=== PATIENT | male | born 1970 | race Caucasian/White ===

== ENCOUNTER 2016-12-07 03:08 | Emergency (ER) | payer MEDICARE, MEDICAID ==
[~2016-12-07] VITALS: Ht 170.2 cm; Wt 90.9 kg
[~2016-12-07 03:08] MED LIST: ACET325T49; ATR20T PO; BENZ0.5T3; BNZT1T PO; BSP5T PO; CLON1TAB69 PO; CLON2TAB16; CLON2TAB3 PO; CLOZ150T PO; CLOZAPINE; DCS100C PO; DVL500TEC PO; FOLI0.4T2 PO; HALO5TAB17 PO; LEVE500T6 PO; LNS30CCR PO; LORA10TA7 PO; MGCT300B; MTP25TSR PO; OMEG1CAP72 PO; OMEP20TA2 PO; OMG1KC PO; OXYB5TAB9 PO; PEG250PW; POLY119P4 PO; SULF1TAB38 PO; TRAZ150T42 PO; [UNRECOGNIZED DRUG - OTHER]; [UNRECOGNIZED DRUG - OTHER]
[2016-12-07] MEDS ORDERED: NS IV 1000 ML 1,000 ML IV ONE (03:26)
[2016-12-07 03:36] LABS: BILIRUBIN,URINE NEGATIVE (NEGATIVE); KETONES,URINE NEGATIVE (NEGATIVE); LEUKOCYTE ESTERASE ,URINE 1+ (NEGATIVE); NITRITE,URINE NEGATIVE (NEGATIVE); PH,URINE 7 (5-9); PROTEIN,URINE NEGATIVE (NEGATIVE); UROBILINOGEN,URINE 8 MG/DL (NORMAL)
[2016-12-07 03:46] LABS: HYALINE CASTS, URINE 0-2 /LPF; SQUAMOUS EPITHELIAL CELL,UR RARE /HPF; WBC,URINE RARE /HPF
[2016-12-07 04:05] LABS: BASOPHILS % (AUTO) 0 % (0-10); EOSINOPHILS # (AUTO) 0.1 10^3/uL (0.0-0.3); EOSINOPHILS % (AUTO) 1 % (0-10); LYMPHOCYTES # (AUTO) 2.4 X 10^3 (1.0-4.0); LYMPHOCYTES % (AUTO) 19 % (12-44); MEAN CORPUSCULAR HEMOGLOBIN 27 PG (25-34); MEAN CORPUSCULAR HGB CONC 33 G/DL (32-36); MEAN CORPUSCULAR VOLUME 81 FL (80-99); MEAN PLATELET VOLUME 9.7 FL (7.4-10.4); MONOCYTES # (AUTO) 1.3 X 10^3 (0.0-1.0); MONOCYTES % (AUTO) 10 % (0-12); NEUTROPHILS # (AUTO) 8.7 X 10^3 (1.8-7.8); NEUTROPHILS % (AUTO) 70 % (42-75); PLATELET COUNT 215 10^3/uL (130-400); RED BLOOD COUNT 5.38 10^6/uL (4.35-5.85); RED CELL DISTRIBUTION WIDTH 15.3 % (10.0-14.5); WHITE BLOOD COUNT 12.5 10^3/uL (4.3-11.0)
--- NOTE | 2016-12-07 04:15 | ED Fall/Injury ---
General Chief Complaint: Trauma-Non Activation Stated Complaint: CONFUSION Nursing Triage Note: BROUGHT TO ED BY ARELY RAGSDALE, PT PICKED UP FROM PD STATION AFTER MOTORIST FOUND PT WALKING ON [address] OUT BY AIRPORT ON [address]. PT IS NOT A HISTORIAN, PT HAS MR. Source: patient Exam Limitations: no limitations History of Present Illness Time seen by provider: 03:20 Initial Comments This 46-year-old male client of [facility] presents to the emergency room via EMS after being found walking down the street near the [facility]. He was wearing pajamas and one sock. He was only wearing a T-shirt with pajama pants on this cool night he is noted to have a cough and abrasions on his knees. He does not give any details about how this occurred. He also states his head hurts but is not clear about any injury to the head. Patient is rather low functioning with MR at baseline and is well known to this provider from outside the ER. Patient has a coarse cough. Patient could not accurately report his last name to police or EMS. His identity was unknown until identified by this provider. Location Injury Occurred: UNWITNESSED, UNKNOWN, PT HAS MR Allergies and Home Medications Allergies Coded Allergies: fluoxetine (Verified Allergy, Unknown, 10/08/05) Home Medications Atorvastatin 20 Mg Tablet, 1 EACH PO HS, Ref 0 (Reported) Clonazepam 2 Mg Tablet, 2 MG PO HS, Ref 0 (Reported) Clozapine 150 Mg Tab.rapdis, 300 MG PO TID, (Reported) Divalproex Sodium 500 Mg Tablet.dr, 4 TAB PO DAILY, Ref 0 (Reported) Docusate Sodium 100 Mg Cap, 100 MG PO BID, Ref 0 (Reported) Folic Acid 0.4 Mg Tablet, 0.5 MG PO DAILY, Ref 0 (Reported) Haloperidol 5 Mg Tab, 1 EACH PO BID, Ref 0 (Reported) Levetiracetam 500 Mg Tablet, 1 EACH PO BID, (Reported) Loratadine 10 Mg Tablet, 10 MG PO DAILY, (Reported) Metoprolol Succinate 25 Mg Tab.sr.24h, 1 EACH PO DAILY, Ref 0 (Reported) [place]-3/Dha/Epa/Fish Oil 1 Each Capsule, 1 EACH PO BID AC, (Reported) Omeprazole 20 Mg Tablet.dr, 40 MG PO DAILY, (Reported) Oxybutynin Chloride 5 Mg Tablet, 1 EACH PO BID, (Reported) Polyethylene Glycol 3350 255 Gm Powder, 17 GM PO DAILY, (Reported) Trazodone Hcl 150 Mg Tablet, 150 MG PO HS, Ref 0 (Reported) Constitutional: no symptoms reported Eyes: No Symptoms Reported Ears, Nose, Mouth, Throat: no symptoms reported Respiratory: see HPI Cardiovascular: no symptoms reported Gastrointestinal: no symptoms reported Genitourinary: no symptoms reported Musculoskeletal: no symptoms reported Skin: see HPI Psychiatric/Neurological: See HPI Past Adabhat-Uutyol-Mxzzin Hx Patient Social History Alcohol Use: Denies Use Recreational Drug Use: No Smoking Status: Unknown if Ever Smoked 2nd Hand Smoke Exposure: No Recent Foreign Travel: No Contact w/Someone Who Travel: No Recent Infectious Disease Expo: No Recent Hopitalizations: No Immunizations Up To Date Tetanus Booster (TDap): More than 5yrs Date of Influenza Vaccine: Dec 06, 2012 Seasonal Allergies Seasonal Allergies: No Surgeries History of Surgeries: No (UNKNOWN) Respiratory History of Respiratory Disorde: No (UNKNOWN) Cardiovascular History of Cardiac Disorders: Yes Cardiac Disorders: High Cholesterol Neurological History of Neurological Disord: Yes ( PT IS MR AND HAS HISTORY OF SEIZURES) Neurological Disorders: Developmental Disorder, Seizure Disorder Genitourinary History of Genitourinary Disor: No (UNKNOWN) Gastrointestinal History of Gastrointestinal Di: Yes Gastrointestinal Disorders: Chronic Constipation Musculoskeletal History of Musculoskeletal Dis: No (UNKNOWN) Endocrine History of Endocrine Disorders: No (UNKNOWN - PT IS MR) HEENT History of HEENT Disorders: No (UNKNOWN) Cancer History of Cancer: No (UNKNOWN) Psychosocial History of Psychiatric Problem: Yes (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) Behavioral Health Disorders: Schizophrenia Integumentary History of Skin or Integumenta: No (UNKNOWN) Blood Transfusions History of Blood Disorders: No (UNKNOWN) Physical Exam Vital Signs Vital Sign - Last 12Hours 12/07/16 03:08 Temp 97.3 Pulse 117 Resp 20 B/P (MAP) 142/96 Pulse Ox 91 O2 Delivery Room Air Capillary Refill : Less Than 3 Seconds General Appearance: WD/WN, no apparent distress HEENT: PERRL/EOMI, normal ENT inspection, other (minor red marking on the skin of the right forehead) Neck: non-tender, normal inspection Cardiovascular: regular rate, rhythm, no edema, no murmur Respiratory: lungs clear, normal breath sounds, no respiratory distress, no accessory muscle use Gastrointestinal: normal bowel sounds, non tender, soft Extremities: no pedal edema, other (abrasions on the bilateral knees) Neurologic/Psychiatric: pot annealer II-XII nml as tested, no motor/sensory deficits, alert, normal mood/affect, other (near baseline) Skin: normal color, warm/dry Progress/Results/Core Measures Results/Orders Lab Results Laboratory Tests Test 12/07/16 03:22 12/07/16 03:55 Range/Units Urine Color YELLOW Urine Clarity SLIGHTLY CLOUDY Urine pH 7 5-9 Urine Specific [place] 1.010 L 1.016-1.022 Urine Protein NEGATIVE NEGATIVE Urine Glucose (UA) NEGATIVE NEGATIVE Urine Ketones NEGATIVE NEGATIVE Urine Nitrite NEGATIVE NEGATIVE Urine Bilirubin NEGATIVE NEGATIVE Urine Urobilinogen 8 H NORMAL MG/DL Urine Leukocyte Esterase 1+ H NEGATIVE Urine RBC (Auto) NEGATIVE NEGATIVE Urine RBC NONE /HPF Urine WBC RARE /HPF Urine Squamous Epithelial Cells RARE /HPF Urine Crystals PRESENT H /LPF Urine Amorphous Sediment MOD STEPHEN PHOSPHATE H /LPF Urine Bacteria TRACE /HPF Urine Casts PRESENT /LPF Urine Hyaline Casts 0-2 H /LPF Urine Mucus SMALL H /LPF Urine Culture Indicated NO White Blood Count 12.5 H 4.3-11.0 10^3/uL Red Blood Count 5.38 4.35-5.85 10^6/uL Hemoglobin 14.3 13.3-17.7 G/DL Hematocrit 44 40-54 % Mean Corpuscular Volume 81 80-99 FL Mean Corpuscular Hemoglobin 27 25-34 PG Mean Corpuscular Hemoglobin Concent 33 32-36 G/DL Red Cell Distribution Width 15.3 H 10.0-14.5 % Platelet Count 215 130-400 10^3/uL Mean Platelet Volume 9.7 7.4-10.4 FL Neutrophils (%) (Auto) 70 42-75 % Lymphocytes (%) (Auto) 19 12-44 % Monocytes (%) (Auto) 10 0-12 % Eosinophils (%) (Auto) 1 0-10 % Basophils (%) (Auto) 0 0-10 % Neutrophils # (Auto) 8.7 H 1.8-7.8 X 10^3 Lymphocytes # (Auto) 2.4 1.0-4.0 X 10^3 Monocytes # (Auto) 1.3 H 0.0-1.0 X 10^3 Eosinophils # (Auto) 0.1 0.0-0.3 10^3/uL Basophils # (Auto) 0.0 0.0-0.1 10^3/uL Sodium Level 144 135-145 MMOL/L Potassium Level 4.0 3.6-5.0 MMOL/L Chloride Level 104 98-107 MMOL/L Carbon Dioxide Level 29 21-32 MMOL/L Anion Gap 11 5-14 MMOL/L Blood Urea Nitrogen 12 7-18 MG/DL Creatinine 0.80 0.60-1.30 MG/DL Estimat Glomerular Filtration Rate > 60 BUN/Creatinine Ratio 15 Glucose Level 103 70-105 MG/DL Calcium Level 9.6 8.5-10.1 MG/DL Total Bilirubin 0.3 0.1-1.0 MG/DL Aspartate Amino Transf (AST/SGOT) 15 5-34 U/L Alanine Aminotransferase (ALT/SGPT) 12 0-55 U/L Alkaline Phosphatase 62 40-136 U/L Total Protein 7.1 6.4-8.2 GM/DL Albumin 4.1 3.2-4.5 GM/DL My Orders Orders - SHAWN GAITAN MD Cbc With Automated Diff (12/07/16 03:26) Comprehensive Metabolic Panel (12/07/16 03:26) Ua Culture If Indicated (12/07/16 03:26) Chest Pa/Lat (2 View) (12/07/16 03:26) Ct Head/Cervical Spine Wo (12/07/16 03:26) Saline Lock/Iv-Start (12/07/16 03:26) Ns Iv 1000 Ml (Sodium Chloride 0.9%) (12/07/16 03:26) Medications Given in ED Current Medications Medications Dose Ordered Sig/Ariana Route Start Time Stop Time Status Last Admin Dose Admin Sodium Chloride 1,000 ml @ 0 mls/hr Q0M ONCE IV 12/07/16 03:26 12/07/16 03:28 DC 12/07/16 04:01 999 MLS/HR Vital Signs/I&O Vital Sign - Last 12Hours 12/07/16 03:08 Temp 97.3 Pulse 117 Resp 20 B/P (MAP) 142/96 Pulse Ox 91 O2 Delivery Room Air Blood Pressure Mean: 111 Progress Note : Progress Note The nature of patient's injuries was uncertain and his expected fall was unwitnessed. Since he complained of headache, CT of the head and neck was performed. Labs were also performed. Chest x-ray was obtained because of cough. There were no significant abnormalities identified in his workup. His care provider was contacted and came to pick him up. She reports he has recently moved residences due to his prior providers health problems. For this reason he does not have his usual alarms and security devices to prevent elopement. She is in the process of obtaining those security devices. Diagnostic Imaging Diagonstic Imaging: Xray Plain Films/CT/US/NM/MRI: chest Comments Chest x-ray viewed by me and compared with prior. No acute abnormalities appreciated. Diagonstic Imaging: CT Plain Films/CT/US/NM/MRI: c-spine, head Comments CT head and C-spine viewed by me and [facility] report reviewed. No acute injuries were identified. Departure Impression Impression: Primary Impression: History of elopement from health care facility Additional Impressions: Headache Qualified Codes: R51 - Headache Abrasion of both knees Disposition: 01 HOME, SELF-CARE Condition: Improved Departure-Patient Inst. Decision time for Depature: 04:45 Referrals: MERT SINGH DO (PCP/Family) Primary Care Physician Add. Discharge Instructions: Return to care with any problems or concerns. All discharge instructions reviewed with patient and/or family. Voiced understanding. SHAWN GAITAN MD Dec 07, 2016 04:15
[2016-12-07 04:25] LABS: ALANINE AMINOTRANSFERASE 12 U/L (0-55); ALBUMIN 4.1 GM/DL (3.2-4.5); ANION GAP 11 MMOL/L (5-14); ASPARTATE AMINO TRANSFERASE 15 U/L (5-34); BILIRUBIN,TOTAL 0.3 MG/DL (0.1-1.0); BLOOD UREA NITROGEN 12 MG/DL (7-18); BUN/CREATININE RATIO 15; CALCIUM 9.6 MG/DL (8.5-10.1); CARBON DIOXIDE 29 MMOL/L (21-32); CHLORIDE 104 MMOL/L (98-107); GFR ESTIMATED > 60; GLUCOSE 103 MG/DL (70-105); SODIUM 144 MMOL/L (135-145); TOTAL PROTEIN 7.1 GM/DL (6.4-8.2)
[2016-12-07 04:51] VITALS: BP 138/90
--- NOTE | 2016-12-07 07:09 | Diagnostic Imaging Report ---
Clinical indication: Patient complains of headache and mentally handicap. Exam: Chest x-ray PA and lateral views. Comparisons: Chest x-ray dated 10/31/2015. Findings: Lungs/pleura: Mild bibasilar atelectasis is seen. Otherwise, lungs are clear. There is no pneumothorax. There is no pleural effusion. Mediastinum: Unremarkable. Pulmonary vasculature: Unremarkable. Heart: Unremarkable. Bones/extrathoracic soft tissue: There are small degenerative spurs involving the thoracic spine. Impression: Likely mild bibasilar atelectasis. Otherwise, there is no radiographic evidence of acute cardiopulmonary process. Dictated by: Dictated on workstation # [id number]
--- NOTE | 2016-12-07 07:31 | Diagnostic Imaging Report ---
Clinical indication: Patient is running around roadway in [facility] and picked up by a passing motorist and taken to the police department. Patient is mentally handicapped. Patient complains of headaches.. Exam: Head CT without IV contrast. Axial CT scan of the cervical spine with sagittal and coronal reformations. Comparison: Head CT without contrast dated 10/31/2015. CT scan of the head, face, and cervical spine dated 02/02/2013. Findings: There is streak artifact obscuring some portions of the brain parenchyma. Head CT: There is no evidence of acute cerebral infarct, intracranial hemorrhage, or gross mass effect. There is normal olmos-white matter distinction. Again noted mild brain parenchymal volume loss with the temporal lobes affected the most. There is no significant midline shift or herniation. There is no evidence of hydrocephalus. The basal cisterns are unremarkable. The skull, extracranial soft tissue, and orbits are unremarkable. There is minimal mucosal thickening involving right maxillary sinus. Cervical spine: There is no acute cervical spine fracture or dislocation. There is progression of hypertrophic spurring or degenerative osteophyte seen throughout the cervical spine and visualized upper thoracic spine. There is no significant bony central spinal canal or neural foramen narrowing. There is no significant neck soft tissue abnormality. There is hypertrophic anterior spurring at the C3-C4 level which encroaches upon the hypopharyngeal region. There is mild atelectasis involving visualized upper lung coronado. The remainder of this exam shows no significant interval change compared to the prior study of comparison. Impression: 1: Stable CT scan of the brain with no evidence of acute intracranial process. 2: There is interval progression of cervical spine degenerative disease with no acute fracture or dislocation. I agree with [facility] report. Dictated by: Dictated on workstation # [id number]
== END 2016-12-07 04:51 | disposition home or self-care (01) ==
LOC: EDUNIT# 03:19 → ER 03:20
DX: S80.211A Abrasion, right knee, initial encounter (principal); S80.212A Abrasion, left knee, initial encounter; R51 Headache; F20.9 Schizophrenia, unspecified; K59.09 Other constipation; G40.909 Epilepsy, unspecified, not intractable, without status epilepticus; E78.00 Pure hypercholesterolemia, unspecified; X58.XXXA Exposure to other specified factors, initial encounter
CPT/HCPCS: 36415; 70450; 71020; 72125; 80053; 81000; 85025; 96360

== ENCOUNTER 2017-03-05 20:35 | Emergency (ER) | payer MEDICARE, MEDICAID ==
[~2017-03-05] VITALS: Ht 170.2 cm; Wt 81.6 kg
--- NOTE | 2017-03-05 21:08 | ED Neurological Problem ---
General Stated Complaint: CONFUSION Source: patient, caregiver Exam Limitations: physical impairment History of Present Illness Time seen by provider: 20:58 Initial Comments Patient presents to ER by private conveyance with his caregiver whom he has lived with for the last 3 months. He is a MR patient who is cared for by [facility]. He has a long-standing history of paranoid schizophrenia, seizure disorder, and more recently started on an increased dose of trazodone because his caregiver from cancer about 3 months ago. His trazodone was increased about 2-3 weeks ago. In the last couple days the caregiver has noted the patient has had a few falls where he promptly pulled himself back up and went on about his business no pain or discomfort. She is gotten last couple days she's also been acting a little strange and today he was not answering appropriately for himself or making much sense at all. He typically can be taken to the bathroom and is wears briefs at nights but he has not been able to care for himself even for his ADLs and the last day or 2. He is eating and drinking okay and ate his dinner tonight. He has not had his evening meds yet. Does not have any heart history. He does smoke cigarettes and has a routine cough although the caregiver feels it may be a little more loose than normal. She's felt that he's been warm but has not checked his temperature. He's had no rash, nausea, vomiting, diarrhea, fatigue. No falls the last 24 hours. Allergies and Home Medications Allergies Coded Allergies: fluoxetine (Verified Allergy, Unknown, 03/05/17) Home Medications Atorvastatin 20 Mg Tablet, 1 EACH PO HS, Ref 0 (Reported) Benztropine Mesylate 1 Mg Tablet, 1 MG PO, (Reported) Clonazepam 2 Mg Tablet, 2 MG PO HS, Ref 0 (Reported) Clozapine 150 Mg Tab.rapdis, 300 MG PO TID, (Reported) Divalproex Sodium 500 Mg Tablet.dr, 4 TAB PO DAILY, Ref 0 (Reported) Docusate Sodium 100 Mg Cap, 100 MG PO BID, Ref 0 (Reported) Folic Acid 0.4 Mg Tablet, 0.5 MG PO DAILY, Ref 0 (Reported) Haloperidol 5 Mg Tab, 1 EACH PO BID, Ref 0 (Reported) Levetiracetam 500 Mg Tablet, 1 EACH PO BID, (Reported) Loratadine 10 Mg Tablet, 10 MG PO DAILY, (Reported) Metoprolol Succinate 25 Mg Tab.sr.24h, 1 EACH PO DAILY, Ref 0 (Reported) [place]-3/Dha/Epa/Fish Oil 1 Each Capsule, 1 EACH PO BID AC, (Reported) Omeprazole 20 Mg Tablet.dr, 40 MG PO DAILY, (Reported) Oxybutynin Chloride 5 Mg Tablet, 1 EACH PO BID, (Reported) Pantoprazole Sodium 40 Mg Tablet.dr, 40 MG PO DAILY, (Reported) Polyethylene Glycol 3350 255 Gm Powder, 17 GM PO DAILY, (Reported) Quetiapine Fumarate 100 Mg Tablet, 100 MG PO, (Reported) Trazodone Hcl 150 Mg Tablet, 150 MG PO HS, Ref 0 (Reported) Constitutional: see HPI (review of systems will be limited given his current cognitive level.), No chills, No diaphoresis, No fever Eyes: Denies Pain, Denies Photophobia, Glasses Ears, Nose, Mouth, Throat: denies ear pain, denies ear discharge Respiratory: cough, phlegm, No short of breath Cardiovascular: No chest pain, No palpitations Gastrointestinal: No abdominal pain, No constipation, No diarrhea, No nausea Genitourinary: No discharge, No dysuria Musculoskeletal: No back pain, No joint pain Skin: No pruritus, No rash Psychiatric/Neurological: Cognitive Dysfunction, Denies Headache Past Lrwhcat-Okhqls-Qabahw Hx Patient Social History Alcohol Use: Denies Use Recreational Drug Use: No Smoking Status: Current Everyday Smoker Type Used: Cigarettes 2nd Hand Smoke Exposure: No Recent Foreign Travel: No Contact w/Someone Who Travel: No Recent Hopitalizations: No Immunizations Up To Date Tetanus Booster (TDap): More than 5yrs Date of Influenza Vaccine: Dec 06, 2012 Seasonal Allergies Seasonal Allergies: No Surgeries History of Surgeries: No (UNKNOWN) Respiratory History of Respiratory Disorde: No (UNKNOWN) Cardiovascular History of Cardiac Disorders: Yes Cardiac Disorders: High Cholesterol Neurological History of Neurological Disord: Yes ( PT IS MR AND HAS HISTORY OF SEIZURES) Neurological Disorders: Developmental Disorder, Seizure Disorder Genitourinary History of Genitourinary Disor: No (UNKNOWN) Gastrointestinal History of Gastrointestinal Di: Yes Gastrointestinal Disorders: Chronic Constipation Musculoskeletal History of Musculoskeletal Dis: No (UNKNOWN) Endocrine History of Endocrine Disorders: No (UNKNOWN - PT IS MR) HEENT History of HEENT Disorders: No (UNKNOWN) Cancer History of Cancer: No (UNKNOWN) Psychosocial History of Psychiatric Problem: Yes (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) Behavioral Health Disorders: Schizophrenia Integumentary History of Skin or Integumenta: No (UNKNOWN) Blood Transfusions History of Blood Disorders: No (UNKNOWN) Physical Exam Vital Signs Vital Sign - Last 12Hours 03/05/17 21:00 Temp 100.1 Pulse 119 Resp 21 B/P (MAP) 147/97 (114) Pulse Ox 94 O2 Delivery Room Air Capillary Refill : General Appearance: WD/WN, no apparent distress HEENT: PERRL/EOMI, normal ENT inspection, TMs normal, pharynx normal Neck: non-tender, normal inspection Respiratory: chest non-tender, no respiratory distress, wheezing (few) Cardiovascular: regular rate, rhythm, no edema, tachycardia (110-120) Peripheral Pulses: 2+ Dorsalis Pedis (R), 2+ Left Dors-Pedis (L), 2+ Radial Pulses (R), 2+ Radial Pulses (L) Gastrointestinal: normal bowel sounds, non tender, soft, no organomegaly Extremities: normal range of motion, normal capillary refill Neurologic/Psychiatric: alert, oriented x 3 Crainal Nerves: normal hearing, normal speech, PERRL, other (caregiver says his confused answers is new in the last day or 2.) Coordination/Gait: normal gait Motor/Sensory: no motor deficit, no sensory deficit Skin: normal color, warm/dry Progress/Results/Core Measures Results/Orders Lab Results Laboratory Tests Test 03/05/17 21:07 03/05/17 23:21 Range/Units White Blood Count 12.8 H 4.3-11.0 10^3/uL Red Blood Count 5.34 4.35-5.85 10^6/uL Hemoglobin 13.8 13.3-17.7 G/DL Hematocrit 42 40-54 % Mean Corpuscular Volume 79 L 80-99 FL Mean Corpuscular Hemoglobin 26 25-34 PG Mean Corpuscular Hemoglobin Concent 33 32-36 G/DL Red Cell Distribution Width 16.0 H 10.0-14.5 % Platelet Count 213 130-400 10^3/uL Mean Platelet Volume 9.9 7.4-10.4 FL Neutrophils (%) (Auto) 70 42-75 % Lymphocytes (%) (Auto) 18 12-44 % Monocytes (%) (Auto) 12 0-12 % Eosinophils (%) (Auto) 0 0-10 % Basophils (%) (Auto) 0 0-10 % Neutrophils # (Auto) 8.9 H 1.8-7.8 X 10^3 Lymphocytes # (Auto) 2.4 1.0-4.0 X 10^3 Monocytes # (Auto) 1.5 H 0.0-1.0 X 10^3 Eosinophils # (Auto) 0.0 0.0-0.3 10^3/uL Basophils # (Auto) 0.0 0.0-0.1 10^3/uL Sodium Level 145 135-145 MMOL/L Potassium Level 3.8 3.6-5.0 MMOL/L Chloride Level 106 98-107 MMOL/L Carbon Dioxide Level 24 21-32 MMOL/L Anion Gap 15 H 5-14 MMOL/L Blood Urea Nitrogen 15 7-18 MG/DL Creatinine 0.88 0.60-1.30 MG/DL Estimat Glomerular Filtration Rate > 60 BUN/Creatinine Ratio 17 Glucose Level 150 H 70-105 MG/DL Calcium Level 9.4 8.5-10.1 MG/DL Total Bilirubin 0.5 0.1-1.0 MG/DL Aspartate Amino Transf (AST/SGOT) 22 5-34 U/L Alanine Aminotransferase (ALT/SGPT) 16 0-55 U/L Alkaline Phosphatase 65 40-136 U/L Total Protein 7.1 6.4-8.2 GM/DL Albumin 3.9 3.2-4.5 GM/DL Group A Streptococcus Screen NEGATIVE NEGATIVE Urine Color BROWN H Urine Clarity CLEAR Urine pH 7 5-9 Urine Specific [place] 1.010 L 1.016-1.022 Urine Protein 2+ H NEGATIVE Urine Glucose (UA) NEGATIVE NEGATIVE Urine Ketones 1+ H NEGATIVE Urine Nitrite POSITIVE H NEGATIVE Urine Bilirubin 2+ H NEGATIVE Urine Urobilinogen 8 H NORMAL MG/DL Urine Leukocyte Esterase 1+ H NEGATIVE Urine RBC (Auto) 1+ H NEGATIVE Urine RBC 0-2 /HPF Urine WBC 0-2 /HPF Urine Squamous Epithelial Cells 0-2 /HPF Urine Crystals NONE /LPF Urine Bacteria NEGATIVE /HPF Urine Casts NONE /LPF Urine Mucus LARGE H /LPF Urine Culture Indicated NO Micro Results Microbiology 03/05/17 Influenza Types A,B Antigen (MEY) - Final, Complete My Orders Orders - VICKI GARCES Influenza A And B Antigens (03/05/17 21:04) Rapid Strep A Screen (03/05/17 21:04) Saline Lock/Iv-Start (03/05/17 21:04) Lactated Ringers (Lr 1000 Ml Iv Solution (03/05/17 21:04) Medications Given in ED Current Medications Medications Dose Ordered Sig/Ariana Route Start Time Stop Time Status Last Admin Dose Admin Lactated Ringer's 1,000 ml @ 0 mls/hr Q0M ONCE IV 03/05/17 21:04 03/05/17 21:05 DC 03/05/17 22:29 1,000 MLS/HR Vital Signs/I&O Vital Sign - Last 12Hours 03/05/17 21:00 Temp 100.1 Pulse 119 Resp 21 B/P (MAP) 147/97 (114) Pulse Ox 94 O2 Delivery Room Air Intake and Output 03/06/17 00:00 Intake Total 1000 ml Balance 1000 ml Progress Note : Time: 21:53 Progress Note Confusion may be caused by infection. He has tachycardia but no fever and a loose cough so certainly pneumonia is possible. Strep and pneumonia are negative. Diagnostic Imaging Diagonstic Imaging: Xray Plain Films/CT/US/NM/MRI: chest (2v) Comments NAME: ANA CHILEL [facility] REC#: [id number] PT STATUS: REG ER : 1970 PHYSICIAN: ALYCIA KHAN [employer]CUIT [employer] ADMIT DATE: 03/05/17/ER Draft Date of Exam:03/05/17 CHEST PA/LAT (2 VIEW) INDICATION: Fall, weakness. COMPARISON: 12/07/2016. EXAMINATION: Frontal and lateral views of the chest were obtained. FINDINGS: Cardiac enlargement with low lung volumes. There is central vascular congestion. There is no pneumothorax, effusion or focal infiltrate. Osseous structures are normal. IMPRESSION: 1. Cardiac enlargement with central vascular congestion and low lung volumes. 2. No focal infiltrate. Dictated on workstation # [id number] Dict: 03/05/[id number] Trans: 03/05/172151 [facility] [id number] Interpreted by: SUNIL VANEGAS Electronically signed by: Reviewed: Reviewed by Me Departure Impression Impression: Primary Impression: Confusion Additional Impressions: Fall Qualified Codes: W19.XXXA - Unspecified fall, initial encounter UTI (urinary tract infection) Qualified Codes: N30.00 - Acute cystitis without hematuria Disposition: HOME, SELF-CARE Condition: Stable Departure-Patient Inst. Decision time for Depature: 00:23 Referrals: MERT SINGH DO (PCP/Family) Primary Care Physician Patient Instructions: Urinary Tract Infection, Adult (DC) Add. Discharge Instructions: Drink lots of fluids. Take one tablet of Bactrim twice daily with some food or fluids. You may also picking table worker some probiotics and take one capsule twice a day with help prevent the GI symptoms accompanying antibiotic use. Complete the antibiotics and if he's not seeing some improvement by day 3 or 4 follow-up with the primary care physician. Scripts Sulfamethoxazole/Trimethoprim (Bactrim Ds Tablet) 1 Each Tablet 1 EACH PO BID for 7 Days, #14 TAB 0 Refills Prov: VICKI GARCES 03/06/17 Copy Copies To 1: MERT SINGH TITUS J Mar 05, 2017 21:08
[2017-03-05 21:22] LABS: BASOPHILS % (AUTO) 0 % (0-10); EOSINOPHILS % (AUTO) 0 % (0-10); LYMPHOCYTES # (AUTO) 2.4 X 10^3 (1.0-4.0); LYMPHOCYTES % (AUTO) 18 % (12-44); MEAN CORPUSCULAR HEMOGLOBIN 26 PG (25-34); MEAN CORPUSCULAR HGB CONC 33 G/DL (32-36); MEAN CORPUSCULAR VOLUME 79 FL (80-99); MEAN PLATELET VOLUME 9.9 FL (7.4-10.4); MONOCYTES # (AUTO) 1.5 X 10^3 (0.0-1.0); MONOCYTES % (AUTO) 12 % (0-12); NEUTROPHILS # (AUTO) 8.9 X 10^3 (1.8-7.8); NEUTROPHILS % (AUTO) 70 % (42-75); PLATELET COUNT 213 10^3/uL (130-400); RED BLOOD COUNT 5.34 10^6/uL (4.35-5.85); WHITE BLOOD COUNT 12.8 10^3/uL (4.3-11.0)
[2017-03-05] MEDS ORDERED: QUET100T69 PO (21:24)
[2017-03-05] MEDS ORDERED: BENZ1TAB6 PO (21:24)
[2017-03-05] MEDS ORDERED: PANT40TA3 PO (21:24)
--- NOTE | 2017-03-05 21:52 | Diagnostic Imaging Report ---
INDICATION: Fall, weakness. COMPARISON: 12/07/2016. EXAMINATION: Frontal and lateral views of the chest were obtained. FINDINGS: Cardiac enlargement with low lung volumes. There is central vascular congestion. There is no pneumothorax, effusion or focal infiltrate. Osseous structures are normal. IMPRESSION: 1. Cardiac enlargement with central vascular congestion and low lung volumes. 2. No focal infiltrate. Dictated by: Dictated on workstation # [id number]
[2017-03-05 22:09] LABS: ALANINE AMINOTRANSFERASE 16 U/L (0-55); ALBUMIN 3.9 GM/DL (3.2-4.5); ANION GAP 15 MMOL/L (5-14); ASPARTATE AMINO TRANSFERASE 22 U/L (5-34); BILIRUBIN,TOTAL 0.5 MG/DL (0.1-1.0); BLOOD UREA NITROGEN 15 MG/DL (7-18); BUN/CREATININE RATIO 17; CALCIUM 9.4 MG/DL (8.5-10.1); CARBON DIOXIDE 24 MMOL/L (21-32); CHLORIDE 106 MMOL/L (98-107); CREATININE SERUM 0.88 MG/DL (0.60-1.30); GFR ESTIMATED > 60; GLUCOSE 150 MG/DL (70-105); POTASSIUM 3.8 MMOL/L (3.6-5.0); SODIUM 145 MMOL/L (135-145); TOTAL PROTEIN 7.1 GM/DL (6.4-8.2)
[2017-03-05] MEDS: LACTATED RINGERS 1,000 ML IV ONE (22:29)
[2017-03-05 23:32] LABS: KETONES,URINE 1+ (NEGATIVE); LEUKOCYTE ESTERASE ,URINE 1+ (NEGATIVE); NITRITE,URINE POSITIVE (NEGATIVE); PH,URINE 7 (5-9); PROTEIN,URINE 2+ (NEGATIVE); UROBILINOGEN,URINE 8 MG/DL (NORMAL)
[2017-03-06 00:09] LABS: BILIRUBIN,URINE 2+ (NEGATIVE); SQUAMOUS EPITHELIAL CELL,UR 0-2 /HPF; WBC,URINE 0-2 /HPF
[2017-03-06] MEDS ORDERED: SULF1TAB35 PO (00:24)
[2017-03-06 00:33] VITALS: BP 134/91
== END 2017-03-06 00:33 | disposition home or self-care (01) ==
LOC: EDUNIT# 20:35 → ER 20:36
DX: R41.0 Disorientation, unspecified (principal); N39.0 Urinary tract infection, site not specified; F20.9 Schizophrenia, unspecified; G40.909 Epilepsy, unspecified, not intractable, without status epilepticus; E78.00 Pure hypercholesterolemia, unspecified; F17.210 Nicotine dependence, cigarettes, uncomplicated; Z87.19 Personal history of other diseases of the digestive system; W19.XXXA Unspecified fall, initial encounter
CPT/HCPCS: 36415; 71020; 80053; 81000; 85025; 87430; 87804

== ENCOUNTER → 2017-03-13 | Outpatient (CLI) | payer MEDICARE, MEDICAID ==
[~2017-03-13] MED LIST changes: +BENZ1TAB6 PO; +PANT40TA3 PO; +QUET100T69 PO; +SULF1TAB35 PO
[2017-03-13] MEDS: GADOBUTROL 10 MMOL/10 ML (GADAVIST) VIAL IV ONE (09:17)
--- NOTE | 2017-03-13 09:53 | Diagnostic Imaging Report ---
CLINICAL INDICATION: Patient having altered mental status, falls, and dizziness. EXAM: MRI of the brain performed without and with 9 cc of Gadavist IV contrast. Sequences include axial DWI, ADC map, axial gradient echo, axial T2, axial FLAIR, axial T1, axial T1 post IV contrast, coronal T1 fat-sat post IV contrast, and sagittal T1 post IV contrast. COMPARISON: Head CT without contrast dated 12/07/2016. FINDINGS: There is no evidence of acute cerebral infarct, intracranial hemorrhage, or gross mass effect. There is no abnormal IV contrast enhancement. There is subtle mild confluent high T2 signal in both cerebral hemispheres and periventricular regions likely related to age-related changes. There is normal olmos-white matter distinction. The brain parenchymal volume appears appropriate for patient's age. There is no significant midline shift or herniation. There is note of the communicative basilar arteries and right vertebral artery on the axial T2 sequence. The pituitary gland, sella, and suprasellar regions are unremarkable as visualized. There is no evidence of hydrocephalus. The basal cisterns are unremarkable. The skull, extracranial soft tissue, and orbits are unremarkable. There is minimal mucosal thickening in the ethmoid sinus. There is a small mucus retention cyst or polyp involving the medial wall of the right maxillary sinus. There is minimal fluid in the right mastoid air cells. IMPRESSION: 1: There is no evidence of acute intracranial process. 2: There is diminutive appearance of the basilar artery and intradural right vertebral artery which is not well delineated on this exam. This may represent normal anatomical variation for patient, but vascular abnormality should be excluded. CT angiogram of the head and neck is suggested for further evaluation. 3: Otherwise age-related brain parenchymal changes. 4: Mild paranasal sinus disease and minimal amount of fluid in the right mastoid air cells. Dictated by: Dictated on workstation # [id number]
== END ==
LOC: RAD 08:29
PROVIDERS: ATTEND Family Medicine
DX: J32.9 Chronic sinusitis, unspecified (principal); G31.89 Other specified degenerative diseases of nervous system; R41.82 Altered mental status, unspecified; R29.6 Repeated falls; R42 Dizziness and giddiness
CPT/HCPCS: 70553

== ENCOUNTER 2017-03-25 11:12 | Inpatient (IN) | payer MEDICARE, MEDICAID ==
[~2017-03-25] VITALS: Ht 175.3 cm; Wt 83.5 kg
--- OUTSIDE RECORDS SUMMARY | 2017-03-25 11:18 | XMS REPORT ---
Author Author CLAUS MCDONALD Organization [employer] Address Unknown Phone Unavailable Care Team Providers Care Medical Professionals Name Role Phone CLAUS MCDONALD CP Unavailable Allergies No Known Allergies Problems Problem Type Condition Code Onset Dates Condition Status Problem Intermittent explosive disorder 312.34 Active Problem Hyperlipemia E78.5 Active Problem Paranoid schizophrenia, chronic condition 295.32 Active Problem Encounter for dental examination Z01.20 Active Problem Paranoid schizophrenia, chronic condition F20.0 Active Problem Mild intellectual disabilities F70 Active Problem Stress incontinence, male N39.3 Active Problem High risk medication use Z79.899 Active Problem Seizures R56.9 Active Problem Mildly mentally retarded F70 Active Medications No Known Medications Results No Known Results Summary Purpose eClinicalWorks Submission
--- OUTSIDE RECORDS SUMMARY | 2017-03-25 11:18 | XMS REPORT ---
Author CLAUS Bean [employer] Address Unknown Phone Unavailable Care Team Providers Care Neuropsychology Medical Consultant Name Role Phone CLAUS MCDONALD CP Unavailable Allergies, Adverse Reactions, Alerts Substance Reaction Event Type Prozac Info Not Available Drug Allergy Problems Problem Type Condition Code Onset Dates [...] Active Problem Mildly mentally retarded F70 Active Assessment Mild intellectual disabilities F70 Active Assessment High risk medication use Z79.899 Active Assessment Paranoid schizophrenia, chronic condition F20.0 Active Medications Medication Code System Code Instructions Start Date End Date Status Dosage Loratadine [facility] [address]-28 10 mg 1 TAB orally once a day May 06, 2013 1 tablet by Oral route 1 time per day Protonix [facility] [address]-56 40 mg August 02, 2013 1 tablet by Oral route 1 time per day Keppra [facility] [address]-51 500 mg July 21, 2012 take 1 tablet (500 mg ) by oral route 2 times per day Haloperidol [facility] 97462566360 2 MG 1 Tablet by Oral route 1 time per day Benztropine Mesylate [facility] [address]-63 1 MG Orally 3 times a day; AM, 3PM and HS 1 Tablet Docusate Sodium [facility] [address]-81 100 mg August 02, 2013 take 1 capsule (100 mg) by oral route 2 times per day Clonazepam [facility] [address]-54 2 MG Orally take at HS Nov 01, 2013 1 Tablet Clozapine [facility] [address]-76 100 MG 3 tabs in the AM and HS; Take 2 tabs at 3PM 1 tablet Depakote ER [facility] 15782542635 500 MG Orally 1 time per day 4 Tablet EPA [facility] 75384-[address]906 1000 MG Orally twice a day 1 capsule Lipitor [facility] [address]-29 20 mg September 21, 2012 1 tablet by Oral route 1 time per day Folic Acid [facility] [address]-79 1 mg Apr 25, 2014 0.5 tablet by Oral route 1 time per day Oxybutynin Chloride [facility] [address]-46 5 MG Orally Twice a day October 06, 2012 1 tablet by Oral route 2 times per day MiraLax [facility] [address]-33 17 gram/dose Feb 24, 2013 17 g by Oral route 1 time per day take daily Metoprolol Succinate [facility] 0 25 mg August 02, 2013 1 tablet by Oral route 1 time per day Trazodone HCl [facility] 28543475999 150 MG take 1 Tablet by Oral route 1 time per day [facility] Procedures Procedure Coding System Code Date Office Visit, Est Pt., Level 4 CPT-4 83373 June 28, 2015 [facility] VISIT ESTABLISHED PATIENT CPT-4 G0467 June 28, 2015 Vital Signs Date/Time: June 28, 2015 Cardiac Monitoring Heart Rate 102 bpm Weight 182 lbs Height 68 in BMI 27.67 Index Blood Pressure Diastolic 80 mmHg Blood Pressure Systolic 130 mmHg Results No Known Results Summary Purpose [employer]ClinicalWorks Submission
--- OUTSIDE RECORDS SUMMARY | 2017-03-25 11:18 | XMS REPORT ---
Author Author CLAUS MCDONALD [employer] Address Unknown Phone Unavailable Care Team Providers Care Buffing Wheel Inspector Name Role Phone CLAUS MCDONALD CP Unavailable Allergies No Known Allergies Problems Problem Type Condition Code Onset Dates Condition Status Problem Mildly mentally retarded F70 Active Problem Stress incontinence, male N39.3 Active Problem Seizures R56.9 Active Problem Paranoid schizophrenia, chronic condition 295.32 Active Problem Intermittent explosive disorder 312.34 Active Problem High risk medication use Z79.899 Active Problem Hyperlipemia E78.5 Active Medications Medication Code System Code Instructions Start Date End Date Status Dosage Depakote ER [facility] [address]-37 500 MG Orally 1 time per day Oct 07, 2012 4 Tablet Results No Known Results Summary Purpose eClinicalWorks Submission
--- OUTSIDE RECORDS SUMMARY | 2017-03-25 11:18 | XMS REPORT ---
Author Author CLAUS MCDONALD Organization [facility] Address [address] [place] [address] Care Team Providers Care Pit Operator Name Role Phone CLAUS MCDONALD Unavailable PROBLEMS Type Condition ICD9-CM Code GHU82-LN Code Onset Dates Condition Status SNOMED Code Problem Paranoid schizophrenia, chronic condition 295.32 Active 43735711 Problem High risk medication use Z79.899 Active 778738535 Problem Seizures R56.9 Active 69576510 Problem Intermittent explosive disorder 312.34 Active 12732128 Problem Mild intellectual disabilities F70 Active 55163839 Problem Encounter for dental examination Z01.20 Active 077666551 Problem Hyperlipemia E78.5 Active 18457472 Problem Mildly mentally retarded F70 Active 01608602 Problem Paranoid schizophrenia, chronic condition F20.0 Active 30226131 Problem Stress incontinence, male N39.3 Active 282574383 ALLERGIES Unknown Allergies SOCIAL HISTORY No smoking Hx information available PLAN OF CARE VITAL SIGNS MEDICATIONS Medication Instructions Dosage Frequency Start Date End Date Duration Status Clonazepam 2 MG Orally for anxiety 1/2 tablet at 3pm and 1.5 tablets at HS Oct, 31 days Active RESULTS No Results PROCEDURES No Known procedures IMMUNIZATIONS No Known Immunizations
--- OUTSIDE RECORDS SUMMARY | 2017-03-25 11:18 | XMS REPORT ---
Author CLAUS Bean [employer] Address Unknown Phone Unavailable Care Team Providers Care Cpr Ambulance Driver Name Role Phone CLAUS MCDONALD CP Unavailable Allergies No Known Allergies Problems Problem Type Condition Code Onset Dates Condition Status Assessment Mildly mentally retarded F70 Active Problem Intermittent explosive disorder 312.34 Active Assessment Paranoid schizophrenia, chronic condition F20.0 Active Assessment High risk medication use Z79.899 Active Problem Seizures R56.9 Active Problem Mildly mentally retarded F70 Active Problem Paranoid schizophrenia, chronic condition F20.0 Active Problem Hyperlipemia E78.5 Active Problem Paranoid schizophrenia, chronic condition 295.32 Active Problem Stress incontinence, male N39.3 Active Problem High risk medication use Z79.899 Active Medications Medication Code System Code Instructions Start Date End Date Status Dosage Docusate Sodium [facility] [address]-55 100 mg August 02, 2013 take 1 capsule (100 mg) by oral route 2 times per day Trazodone HCl [facility] [address]-53 150 MG take 1 Tablet by Oral route 1 time per day qHS Keppra [facility] [address]-73 500 mg July 21, 2012 take 1 tablet (500 mg ) by oral route 2 times per day Depakote ER [facility] [address]-38 500 MG Orally 1 time per day Oct 07, 2012 4 Tablet Oxybutynin Chloride [facility] [address]-84 5 MG Orally Twice a day October 06, 2012 1 tablet by Oral route 2 times per day Haloperidol [facility] [address]-09 2 MG 1 Tablet by Oral route 1 time per day Folic Acid [facility] [address]-92 1 mg Apr 25, 2014 0.5 tablet by Oral route 1 time per day Robinul [facility] [address]-63 1 MG Orally Three times a day as needed 1 tablet Protonix [facility] [address]-95 40 mg August 02, 2013 1 tablet by Oral route 1 time per day Metoprolol Succinate [facility] 0 25 mg August 02, 2013 1 tablet by Oral route 1 time per day Lipitor [facility] [address]-84 20 mg September 21, 2012 1 tablet by Oral route 1 time per day Clozapine [facility] [address]-96 100 MG 3 Tablet by Oral route 3 times per day Benztropine Mesylate [facility] [address]-80 1 MG Orally 2 times a day for drooling 1 Tablet EPA [facility] 03657-36963 1000 MG Orally twice a day 1 capsule Loratadine [facility] [address]-41 10 mg 1 TAB orally once a day May 06, 2013 1 tablet by Oral route 1 time per day MiraLax [facility] [address]-97 17 gram/dose Feb 24, 2013 17 g by Oral route 1 time per day take daily Clonazepam [facility] [address]-24 2 MG Orally take at HS Nov 01, 2013 1 Tablet Procedures Procedure Coding System Code Date Office Visit, Est Pt., Level 4 CPT-4 13871 Mar 29, 2015 [facility] VISIT ESTABLISHED PATIENT CPT-4 G0467 Mar 29, 2015 Vital Signs Date/Time: Mar 29, 2015 Cardiac Monitoring Heart Rate 90 bpm Weight 182.4 lbs Height 68 in BMI 27.73 Index Blood Pressure Diastolic 76 mmHg Blood Pressure Systolic 128 mmHg Results No Known Results Summary Purpose eClinicalWorks Submission
--- OUTSIDE RECORDS SUMMARY | 2017-03-25 11:18 | XMS REPORT ---
Author Author CLAUS MCDONALD Organization [employer] Address Unknown Phone Unavailable Care Team Providers Care Carpet Jack Name Role Phone CLAUS MCDONALD CP Unavailable [...]
--- OUTSIDE RECORDS SUMMARY | 2017-03-25 11:18 | XMS REPORT ---
Author Author CLAUS MCDONALD Organization [employer] Address Unknown Phone Unavailable Care Team Providers Care Maintenance Worker Swimming Pool Name Role Phone CLAUS MCDONALD CP Unavailable [...]
--- OUTSIDE RECORDS SUMMARY | 2017-03-25 11:18 | XMS REPORT ---
Author Author JOSSE OWENS Organization [employer] Address Unknown Phone Unavailable Care Team Providers Care Workforce Planning Analyst Name Role Phone JOSSE OEWNS CP Unavailable Allergies No Known Allergies Problems Problem Type Condition ICD-9 Code Onset Dates Condition Status Problem Mild mental retardation 317 Active Problem Encounter for removal of sutures V58.32 Active Problem Paranoid schizophrenia, chronic condition 295.32 Active Problem Routine general medical examination at health care facility V70.0 Active Problem Other convulsions 780.39 Active Problem Periapical abscess without sinus 522.5 Active Problem Intermittent explosive disorder 312.34 Active Medications No Known Medications Vital Signs Date/Time: Nov 22, 2014 BMI 26.77 Index Weight 176.1 lbs Height 68 in Results No Known Results Summary Purpose eClinicalWorks Submission
--- OUTSIDE RECORDS SUMMARY | 2017-03-25 11:18 | XMS REPORT ---
Author Author CLAUS MCDONALD Organization [facility] Address [address] [place] [address] Care Team Providers Care Languages And Literature Instructor Name Role Phone CLAUS MCDONALD Unavailable PROBLEMS Type Condition ICD9-CM Code [id number] Code Onset Dates Condition Status SNOMED Code Problem Paranoid schizophrenia, chronic condition 295.32 Active 00601470 Problem High risk medication use Z79.899 Active 969322506 Problem Seizures R56.9 Active 66938266 Problem Intermittent explosive disorder 312.34 Active 89507374 Problem Mild intellectual disabilities F70 Active 97558096 Problem Encounter for dental examination Z01.20 Active 090031713 Problem Hyperlipemia E78.5 Active 79401803 Problem Mildly mentally retarded F70 Active 68041656 Problem Paranoid schizophrenia, chronic condition F20.0 Active 33724996 Problem Stress incontinence, male N39.3 Active 533630860 ALLERGIES No Information SOCIAL HISTORY Never Assessed PLAN OF CARE VITAL SIGNS MEDICATIONS Medication Instructions Dosage Frequency Start Date End Date Duration Status Haloperidol 2 MG 1 Tablet by Oral route 1 time per day 31 days Active Trazodone HCl 150 MG take 1 Tablet by Oral route 1 time per day qHS 31 days Active RESULTS No Results PROCEDURES No Known procedures IMMUNIZATIONS No Known Immunizations MEDICAL (GENERAL) HISTORY Type Description Date Medical History High Blood Pressure Medical History Fainting/Seizures/Epilepsy Medical History Moderate MR Medical History GERD Medical History Hyperlipidemia Medical History Paranoid Schizophrenia Medical History incontenance Medical History Intermitten Explosive DO Hospitalization History Constipated related 2013
--- OUTSIDE RECORDS SUMMARY | 2017-03-25 11:18 | XMS REPORT ---
Author Author CLAUS MCDONALD [employer] Address Unknown Phone Unavailable Care Team Providers Care Airborne Weapons Technical Manager Name Role Phone CLAUS MCDONALD CP Unavailable Allergies, Adverse Reactions, Alerts Substance Reaction Event Type N.K.D.A. Info Not Available Non Drug Allergy Problems Problem Type Condition Code Onset Dates Condition Status Assessment Paranoid schizophrenia, chronic condition F20.0 Active Assessment Mild mental retardation F70 Active Problem Mildly mentally retarded F70 Active Problem Stress incontinence, male N39.3 Active Problem Seizures R56.9 Active Problem Paranoid schizophrenia, chronic condition 295.32 Active Problem Intermittent explosive disorder 312.34 Active Problem High risk medication use Z79.899 Active Problem Hyperlipemia E78.5 Active Medications Medication Code System Code Instructions Start Date End Date Status Dosage Protonix [facility] [address]-17 40 mg August 02, 2013 1 tablet by Oral route 1 time per day Loratadine [facility] [address]-23 10 mg 1 TAB orally once a day May 06, 2013 1 tablet by Oral route 1 time per day Trazodone HCl [facility] 54465817935 150 MG take 1 Tablet by Oral route 1 time per day qHS Clozapine [facility] 19252843005 100 MG 3 Tablet by Oral route 3 times per day Clonazepam [facility] [address]-25 2 MG Orally take at HS Nov 01, 2013 1 Tablet Docusate Sodium [facility] [address]-22 100 mg August 02, 2013 take 1 capsule (100 mg) by oral route 2 times per day Benztropine Mesylate [facility] [address]-20 1 MG Orally 2 times a day for drooling 1 Tablet Depakote ER [facility] [address]-13 500 MG Orally 1 time per day Oct 07, 2012 4 Tablet Haloperidol [facility] 31463787330 2 MG 1 Tablet by Oral route 1 time per day EPA [facility] 19302-43298 1000 MG Orally twice a day 1 capsule Oxybutynin Chloride [facility] [address]-61 5 MG Orally Twice a day October 06, 2012 1 tablet by Oral route 2 times per day Keppra [facility] [address]-01 500 mg July 21, 2012 take 1 tablet (500 mg ) by oral route 2 times per day Metoprolol Succinate [facility] 0 25 mg August 02, 2013 1 tablet by Oral route 1 time per day Lipitor [facility] [address]-62 20 mg September 21, 2012 1 tablet by Oral route 1 time per day MiraLax [facility] [address]-45 17 gram/dose Feb 24, 2013 17 g by Oral route 1 time per day take daily Folic Acid [facility] [address]-14 1 mg Apr 25, 2014 0.5 tablet by Oral route 1 time per day Procedures Procedure Coding System Code Date Office Visit, Est Pt., Level 3 CPT-4 06504 Dec 26, 2014 [facility] VISIT ESTABLISHED PATIENT CPT-4 G0467 Dec 26, 2014 Vital Signs Date/Time: Dec 26, 2014 Cardiac Monitoring Heart Rate 104 bpm Weight 171.0 lbs Height 68 in BMI 26.00 Index Blood Pressure Diastolic 78 mmHg Blood Pressure Systolic 110 mmHg Results No Known Results Summary Purpose eClinicalWorks Submission
--- OUTSIDE RECORDS SUMMARY | 2017-03-25 11:19 | XMS REPORT ---
Author CLAUS Bean [employer] Address Unknown Phone Unavailable Care Team Providers Care Hvac Refrigeration Technician Name Role Phone CLAUS MCDONALD CP Unavailable Allergies No Known Allergies Problems Problem Type Condition Code Onset Dates Condition Status Problem Intermittent explosive disorder 312.34 Active Problem Seizures R56.9 Active Problem Mildly mentally retarded F70 Active Problem Paranoid schizophrenia, chronic condition F20.0 Active Problem Hyperlipemia E78.5 Active Problem Paranoid schizophrenia, chronic condition 295.32 Active Problem Stress incontinence, male N39.3 Active Problem High risk medication use Z79.899 Active Medications No Known Medications Results No Known Results Summary Purpose eClinicalWorks Submission
--- OUTSIDE RECORDS SUMMARY | 2017-03-25 11:19 | XMS REPORT ---
Author Author CLAUS MCDONALD Organization [employer] Address Unknown Phone Unavailable Care Team Providers Care Visual Basic .Net Developer Name Role Phone CLAUS MCDONALD CP Unavailable [...] Problem Mildly mentally retarded F70 Active Medications Medication Code System Code Instructions Start Date End Date Status Dosage Clonazepam [facility] [address]-02 2 MG Orally take at Nov 01, 2013 1 Tablet Results No Known Results Summary Purpose eClinicalWorks Submission
--- OUTSIDE RECORDS SUMMARY | 2017-03-25 11:19 | XMS REPORT ---
Author Author CLAUS MCDONALD [employer] Address Unknown Phone Unavailable Care Team Providers Care Internal Affairs Investigator Name Role Phone CLAUS MCDONALD CP Unavailable [...] Instructions Start Date End Date Status Dosage Benztropine Mesylate [facility] [address]-60 1 MG Orally 2 times a day for drooling 1 Tablet Results No Known Results Summary Purpose eClinicalWorks Submission
--- OUTSIDE RECORDS SUMMARY | 2017-03-25 11:19 | XMS REPORT ---
Author Author CLAUS MCDONALD [employer] Address Unknown Phone Unavailable Care Team Providers Care Meat Service Team Member Name Role Phone CLAUS MCDONALD CP Unavailable Allergies No Known Allergies Problems Problem Type Condition Code Onset Dates Condition Status Assessment Paranoid schizophrenia F20.0 Active Problem Mildly mentally retarded F70 Active Problem Stress incontinence, male N39.3 Active Problem Seizures R56.9 Active Problem Paranoid schizophrenia, chronic condition 295.32 Active Problem Intermittent explosive disorder 312.34 Active Problem High risk medication use Z79.899 Active Problem Hyperlipemia E78.5 Active Medications No Known Medications Results No Known Results Summary Purpose eClinicalWorks Submission
--- OUTSIDE RECORDS SUMMARY | 2017-03-25 11:19 | XMS REPORT ---
Author Author CLAUS MCDONALD Organization [employer] Address Unknown Phone Unavailable Care Team Providers Care Human Resources Support Specialist Name Role Phone CLAUS MCDONALD CP Unavailable [...]
--- OUTSIDE RECORDS SUMMARY | 2017-03-25 11:19 | XMS REPORT ---
Author Author CLAUS MCDONALD Organization [facility] Address [address] [place] [address] Care Team Providers Care Thresher Broomcorn Name Role Phone CLAUS MCDONALD Unavailable PROBLEMS Type Condition ICD9-CM Code GMX82-XZ Code Onset Dates Condition Status SNOMED Code Problem Paranoid schizophrenia, chronic condition 295.32 Active 98167027 Problem High risk medication use Z79.899 Active 166038257 Problem Hyperlipemia E78.5 Active 39602824 Problem Intermittent explosive disorder 312.34 Active 13590418 Problem Mild intellectual disabilities F70 Active 34097624 Problem Encounter for dental examination Z01.20 Active 631840743 Problem Mildly mentally retarded F70 Active 80578456 Problem Stress incontinence, male N39.3 Active 510531837 Problem Paranoid schizophrenia, chronic condition F20.0 Active 90890782 Problem Seizures R56.9 Active 80573436 ALLERGIES Unknown Allergies SOCIAL HISTORY No smoking Hx information available PLAN OF CARE VITAL SIGNS MEDICATIONS Medication Instructions Dosage Frequency Start Date End Date Duration Status Seroquel 100 MG Orally Once a day at bedtime 1 tablet Jan, Active RESULTS No Results PROCEDURES No Known procedures IMMUNIZATIONS No Known Immunizations
--- OUTSIDE RECORDS SUMMARY | 2017-03-25 11:19 | XMS REPORT ---
Author Author CLAUS MCDONALD Organization [facility] Address [address] [place] [address] Care Team Providers Care Control Panel Operator Name Role Phone CLAUS MCDONALD Unavailable PROBLEMS Type Condition ICD9-CM Code RNA55-II Code Onset Dates Condition Status SNOMED Code Problem Paranoid schizophrenia, chronic condition 295.32 Active 41801573 Problem High risk medication use Z79.899 Active 408692400 Problem Seizures R56.9 Active 39304071 Problem Intermittent explosive disorder 312.34 Active 22236768 Problem Mild intellectual disabilities F70 Active 22711594 Problem Encounter for dental examination Z01.20 Active 172673380 Problem Hyperlipemia E78.5 Active 31153394 Problem Mildly mentally retarded F70 Active 19358161 Problem Paranoid schizophrenia, chronic condition F20.0 Active 48408210 Problem Stress incontinence, male N39.3 Active 445998513 ALLERGIES Substance Reaction Event Type Date Status Prozac Unknown Drug Allergy Apr, Active SOCIAL HISTORY Never Assessed PLAN OF CARE Activity Details Follow Up 4 Months Reason: VITAL SIGNS Height 68 in 2016-04-29 Weight 197.2 lbs 2016-04-29 Heart Rate 118 bpm 2016-04-29 Respiratory Rate 22 2016-04-29 BMI 29.98 kg/m2 2016-04-29 Blood pressure systolic 128 mmHg 2016-04-29 Blood pressure diastolic 81 mmHg 2016-04-29 MEDICATIONS Medication Instructions Dosage Frequency Start Date End Date Duration Status Trazodone HCl 150 MG take 1 Tablet by Oral route 1 time per day qHS Active Oxybutynin Chloride 5 MG Orally Twice a day 1 tablet by Oral route 2 times per day 12h Sep, Active Folic Acid 1 mg 0.5 tablet by Oral route 1 time per day Apr, Active Metoprolol Succinate 25 mg 1 tablet by Oral route 1 time per day July Active Benztropine Mesylate 1 MG Orally 3 times a day; AM, 3PM and HS 1 Tablet Active Lipitor 20 mg 1 tablet by Oral route 1 time per day Sep, Active MiraLax 17 gram/dose 17 g by Oral route 1 time per day take daily Feb, Active Keppra 500 mg take 1 tablet (500 mg) by oral route 2 times per day July, Active Seroquel 100 MG Orally Once a day at bedtime 1 tablet Jan, Active Clonazepam 2 MG Orally for anxiety 1/2 tablet at 3pm and 1.5 tablets at HS Oct, Active Depakote ER 500 MG Orally 1 time per day 4 Tablet Active Docusate Sodium 100 mg take 1 capsule (100 mg) by oral route 2 times per day July, Active EPA 1000 MG Orally twice a day 1 capsule 12h Active Haloperidol 2 MG 1 Tablet by Oral route 1 time per day Active Clozapine 100 MG 1 tablet 3 tabs in the AM and HS; Take 2 tabs at 3PM Active Protonix 40 mg 1 tablet by Oral route 1 time per day July, Active Loratadine 10 mg 1 tablet by Oral route 1 time per day Apr, Active RESULTS No Results PROCEDURES Procedure Date Ordered Result Body Site [facility] VISIT ESTABLISHED PATIENT Apr 29, 2016 IMMUNIZATIONS No Known Immunizations MEDICAL (GENERAL) HISTORY Type Description Date Medical History High Blood Pressure Medical History Fainting/Seizures/Epilepsy Medical History Moderate MR Medical History GERD Medical History Hyperlipidemia Medical History Paranoid Schizophrenia Medical History incontenance Medical History 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
--- OUTSIDE RECORDS SUMMARY | 2017-03-25 11:19 | XMS REPORT ---
Author Author CLAUS MCDONALD eClinicalWorks Address Unknown Phone Unavailable Care Team Providers Care Reverberatory Furnace Supervisor Name Role Phone CLAUS MCDONALD CP Unavailable Allergies No Known Allergies Problems Problem Type Condition Code Onset Dates Condition Status Problem Intermittent explosive disorder 312.34 Active Problem Hyperlipemia E78.5 Active Problem Paranoid schizophrenia, chronic condition 295.32 Active Assessment Paranoid schizophrenia, chronic condition F20.0 Active Problem Encounter for dental examination Z01.20 Active Problem Paranoid schizophrenia, chronic condition F20.0 Active Problem Mild intellectual disabilities F70 Active Problem Stress incontinence, male N39.3 Active Problem High risk medication use Z79.899 Active Problem Seizures R56.9 Active Problem Mildly mentally retarded F70 Active Medications Medication Code System Code Instructions Start Date End Date Status Dosage Seroquel [facility] [address]-99 50 mg Orally Once a day at bedtime Jan 14, 2016 1 tablet Results No Known Results Summary Purpose eClinicalWorks Submission
--- OUTSIDE RECORDS SUMMARY | 2017-03-25 11:19 | XMS REPORT ---
Author Author CLAUS MCDONALD eClinicalWorks Address Unknown Phone Unavailable Care Team Providers Care Patient Access Specialist Name Role Phone CLAUS MCDONALD CP [...] Date End Date Status Dosage Depakote ER [facility] [address]-72 500 MG Orally 1 time per day Oct 07, 2012 4 Tablet Results No Known Results Summary Purpose eClinicalWorks Submission
--- OUTSIDE RECORDS SUMMARY | 2017-03-25 11:19 | XMS REPORT ---
Author Author HARRY CLAUS Organization [facility] Address [address] [place] [address] Care Team Providers Care Machine Plate Stacker Name Role Phone HARRYMELONIECLAUS Unavailable PROBLEMS Type Condition ICD9-CM Code RSI52-MS Code Onset Dates Condition Status SNOMED Code Problem Paranoid schizophrenia, chronic condition 295.32 Active 05082051 Problem High risk medication use Z79.899 Active 374185804 Problem Hyperlipemia E78.5 Active 27265098 Assessment Paranoid schizophrenia, chronic condition F20.0 Nov, Active 48724579 Problem Intermittent explosive disorder 312.34 Active 63335402 Problem Mild intellectual disabilities F70 Active 09428680 Problem Encounter for dental examination Z01.20 Active 629832409 Problem Mildly mentally retarded F70 Active 03613456 Problem Stress incontinence, male N39.3 Active 364594970 Problem Paranoid schizophrenia, chronic condition F20.0 Active 83396717 Problem Seizures R56.9 Active 61663573 ALLERGIES Substance Reaction Event Type Date Status Prozac Unknown Drug Allergy Nov, Active SOCIAL HISTORY No smoking Hx information available PLAN OF CARE VITAL SIGNS Height 68 in 2015-11-22 Weight 188.6 lbs 2015-11-22 Heart Rate 120 bpm 2015-11-22 Respiratory Rate 22 2015-11-22 BMI 28.67 kg/m2 2015-11-22 Blood pressure systolic 117 mmHg 2015-11-22 Blood pressure diastolic 85 mmHg 2015-11-22 MEDICATIONS Medication Instructions Dosage Frequency Start Date End Date Duration Status Clonazepam 2 MG Orally for anxiety 1/2 tablet at 3pm and 1.5 tablets at HS Oct, Active Keppra 500 mg take 1 tablet (500 mg) by oral route 2 times per day July, Active Haloperidol 2 MG 1 Tablet by Oral route 1 time per day Active Clozapine 100 MG 1 tablet 3 tabs in the AM and HS; Take 2 tabs at 3PM Active Oxybutynin Chloride 5 MG Orally Twice a day 1 tablet by Oral route 2 times per day 12h 31 Sep, 2012 Active Folic Acid 1 mg 0.5 tablet by Oral route 1 time per day Apr, Active Protonix 40 mg 1 tablet by Oral route 1 time per day July, Active Lipitor 20 mg 1 tablet by Oral route 1 time per day Sep, Active MiraLax 17 gram/dose 17 g by Oral route 1 time per day take daily Feb, Active Benztropine Mesylate 1 MG Orally 3 times a day; AM, 3PM and HS 1 Tablet Active Loratadine 10 mg 1 tablet by Oral route 1 time per day Apr, Active Trazodone HCl 150 MG take 1 Tablet by Oral route 1 time per day qHS Active Depakote ER 500 MG Orally 1 time per day 4 Tablet Active Docusate Sodium 100 mg take 1 capsule (100 mg) by oral route 2 times per day July, Active EPA 1000 MG Orally twice a day 1 capsule 12h Active Metoprolol Succinate 25 mg 1 tablet by Oral route 1 time per day July Active RESULTS No Results PROCEDURES Procedure Date Ordered Related Diagnosis Body Site [facility] VISIT ESTABLISHED PATIENT Nov 22, 2015 Office Visit, Est Pt., Level 4 Nov 22, 2015 IMMUNIZATIONS No Known Immunizations
--- OUTSIDE RECORDS SUMMARY | 2017-03-25 11:19 | XMS REPORT ---
Author CLAUS Bean eClinicalWorks Address Unknown Phone Unavailable Care Team Providers Care Dinkey Brakeman Name Role Phone CLAUS MCDONALD CP Unavailable [...] Problem Mildly mentally retarded F70 Active Assessment High risk medication use Z79.899 Active Assessment Mild intellectual disabilities F70 Active Assessment Paranoid schizophrenia, chronic condition F20.0 Active Medications Medication Code System Code Instructions Start Date End Date Status Dosage MiraLax [facility] [address]-76 17 gram/dose Feb 24, 2013 17 g by Oral route 1 time per day take daily Lipitor [facility] [address]-88 20 mg September 21, 2012 1 tablet by Oral route 1 time per day EPA [facility] 418[address]3688 1000 MG Orally twice a day 1 capsule Protonix [facility] [address]-53 40 mg August 02, 2013 1 tablet by Oral route 1 time per day Haloperidol [facility] 64984952141 2 MG 1 Tablet by Oral route 1 time per day Loratadine [facility] [address]-28 10 mg 1 TAB orally once a day May 06, 2013 1 tablet by Oral route 1 time per day Clozapine [facility] [address]-58 100 MG 1 tablet 3 tabs in the AM and HS; Take 2 tabs at 3PM Folic Acid [facility] [address]-50 1 mg Apr 25, 2014 0.5 tablet by Oral route 1 time per day Metoprolol Succinate [facility] 0 25 mg August 02, 2013 1 tablet by Oral route 1 time per day Trazodone HCl [facility] 58919150556 150 MG take 1 Tablet by Oral route 1 time per day q Keppra [facility] [address]-85 500 mg July 21, 2012 take 1 tablet (500 mg ) by oral route 2 times per day Depakote ER [facility] 19632453728 500 MG Orally 1 time per day 4 Tablet Clonazepam [facility] [address]-73 2 MG Orally for anxiety Nov 01, 2013 1/ 2 tablet at 3pm and 1.5 tablets at HS Oxybutynin Chloride [facility] [address]-53 5 MG Orally Twice a day October 06, 2012 1 tablet by Oral route 2 times per day Docusate Sodium [facility] [address]-86 100 mg August 02, 2013 take 1 capsule (100 mg) by oral route 2 times per day Benztropine Mesylate [facility] [address]-98 1 MG Orally 3 times a day; AM, 3PM and HS 1 Tablet Procedures Procedure Coding System Code Date Office Visit, Est Pt., Level 3 CPT-4 80669 Dec 20, 2015 [facility] VISIT ESTABLISHED PATIENT CPT-4 G0467 Dec 20, 2015 Vital Signs Date/Time: Dec 20, 2015 Cardiac Monitoring Heart Rate 108 bpm Weight 188.7 lbs Height 68 in BMI 28.69 Index Blood Pressure Diastolic 84 mmHg Blood Pressure Systolic 123 mmHg Results No Known Results Summary Purpose eClinicalWorks Submission
--- OUTSIDE RECORDS SUMMARY | 2017-03-25 11:19 | XMS REPORT ---
Author Author CLAUS MCDONALD eClinicalWorks Address Unknown Phone Unavailable Care Team Providers Care Auditing Control Clerk Name Role Phone CLAUS MCDONALD CP Unavailable [...] Date End Date Status Dosage Benztropine Mesylate [facility] [address]-72 1 MG Orally 2 times a day for drooling [address] [facility] [address]-21 100 MG 3 Tablet by Oral route 3 times per day Trazodone HCl [facility] [address]-82 150 MG take 1 Tablet by Oral route 1 time per day qHS Depakote ER [facility] [address]-59 500 MG Orally 1 time per day Oct 07, [address] [facility] [address]-08 2 MG 1 Tablet by Oral route 1 time per day Results No Known Results Summary Purpose eClinicalWorks Submission
--- OUTSIDE RECORDS SUMMARY | 2017-03-25 11:19 | XMS REPORT ---
Author Author JOSSE OWENS Organization e[employer] Address Unknown Phone Unavailable Care Team Providers Care Side Seam Machine Operator Name Role Phone JOSSE OWENS CP Unavailable Allergies No Known Allergies Problems Problem Type Condition Code Onset Dates Condition Status Assessment High risk medication use Z79.899 Active Assessment Hyperlipemia E78.5 Active Problem Mildly mentally retarded F70 Active Problem Stress incontinence, male N39.3 Active Problem Seizures R56.9 Active Problem Paranoid schizophrenia, chronic condition 295.32 Active Problem Intermittent explosive disorder 312.34 Active Problem High risk medication use Z79.899 Active Problem Hyperlipemia E78.5 Active Medications No Known Medications Procedures Procedure Coding System Code Date [facility] Dec 11, 2014 Results No Known Results Summary Purpose eClinicalWorks Submission
--- OUTSIDE RECORDS SUMMARY | 2017-03-25 11:20 | XMS REPORT ---
Author Author CLAUS MCDONALD eClinicalWorks Address Unknown Phone Unavailable Care Team Providers Care Puppet Engineer Name Role Phone CLAUS MCDONALD CP Unavailable [...] Start Date End Date Status Dosage Clonazepam [facility] [address]-84 2 MG Orally for anxiety Nov 01, 2013 1/ 2 tablet at 3pm and 1.5 tablets at HS Results No Known Results Summary Purpose eClinicalWorks Submission
--- OUTSIDE RECORDS SUMMARY | 2017-03-25 11:22 | XMS REPORT | Continuity of Care Document ---
Author Author [facility] Organization [facility] Address Unknown Phone Unavailable Allergies Active Description Code Type Severity Reaction Onset Reported/Identified Relationship to Patient Clinical Status Yes Prozac Drug Allergy 09/26/2008 Yes Prozac Drug Allergy N/A N/A 09/26/2008 Yes fluoxetine [id number] Drug Allergy Unknown N/A 03/05/2017 Medications There is no data. Problems Date Dx Coded Attending Type Code Diagnosis Diagnosed By 09/09/2007 SHEA ZAMUDIO DO V58.69 MEDICATION HIGH RISK 09/09/2007 PALAK BARON DDS V58.69 MEDICATION HIGH RISK 09/09/2007 SHEA ZAMUDIO DO V58.69 MEDICATION HIGH RISK 09/09/2007 JOSSE OWENS APRN V58.69 MEDICATION HIGH RISK 09/09/2007 V58.69 MEDICATION HIGH RISK 09/09/2007 V58.69 MEDICATION HIGH RISK 09/09/2007 V58.69 MEDICATION HIGH RISK 09/09/2007 V58.69 MEDICATION HIGH RISK 09/09/2007 V58.69 MEDICATION HIGH RISK 09/09/2007 V58.69 MEDICATION HIGH RISK 09/09/2007 JOSSE OWENS APRN V58.69 MEDICATION HIGH RISK 09/09/2007 KYLE WADDELL MD V58.69 MEDICATION HIGH RISK 09/09/2007 MERT SINGH DO V58.69 MEDICATION HIGH RISK 09/09/2007 JALEESA SERRATO JR V58.69 MEDICATION HIGH RISK 09/09/2007 KYLE WADDELL MD V58.69 MEDICATION HIGH RISK 09/09/2007 JALEESA SERRATO JR V58.69 MEDICATION HIGH RISK 09/09/2007 CLAUS MCDONALD APRN V58.69 MEDICATION HIGH RISK 09/09/2007 CLAUS MCDONALD APRN V58.69 MEDICATION HIGH RISK 09/09/2007 CLAUS MCDONALD APRN V58.69 MEDICATION HIGH RISK 09/09/2007 HARRY JOINTER SUBMARINE CABLE, CLAUS J V58.69 MEDICATION HIGH RISK 09/09/2007 HARRY JOINTER SUBMARINE CABLE, CLAUS J V58.69 MEDICATION HIGH RISK 09/09/2007 HARRY JOINTER SUBMARINE CABLE, CLAUS J V58.69 MEDICATION HIGH RISK 09/09/2007 HARRY JOINTER SUBMARINE CABLE, CLAUS J V58.69 MEDICATION HIGH RISK 09/09/2007 CASANOVA DDS, MAIKEL V58.69 MEDICATION HIGH RISK 09/09/2007 HARRY JONESN, CLAUS J V58.69 MEDICATION HIGH RISK 09/09/2007 HARRY JONESN, CLAUS J V58.69 MEDICATION HIGH RISK 09/09/2007 HARRY JOINTER SUBMARINE CABLE, CLAUS J V58.69 MEDICATION HIGH RISK 09/21/2007 SHEA ZAMUDIO DO F 401.1 HYPERTENSION, BENIGN ESSENTIAL 09/21/2007 SHEA ZAMUDIO DO F 788.30 INCONTINENCE ENURESOS/URINARY 09/21/2007 MUSUEHALU DDS, PALAK N 401.1 HYPERTENSION, BENIGN ESSENTIAL 09/21/2007 EULAOGHALU MAHNAZS, PALAK N 788.30 INCONTINENCE ENURESOS/URINARY 09/21/2007 SHEA ZAMUDIO DO F 401.1 HYPERTENSION, BENIGN ESSENTIAL 09/21/2007 SHEA ZAMUDIO DO F 788.30 INCONTINENCE ENURESOS/URINARY 09/21/2007 JOSSE OWENS APRN 401.1 HYPERTENSION, BENIGN ESSENTIAL 09/21/2007 JOSSE OWENS APRN 788.30 INCONTINENCE ENURESOS/URINARY 09/21/2007 401.1 HYPERTENSION, BENIGN ESSENTIAL 09/21/2007 788.30 INCONTINENCE ENURESOS/URINARY 09/21/2007 401.1 HYPERTENSION, BENIGN ESSENTIAL 09/21/2007 788.30 INCONTINENCE ENURESOS/URINARY 09/21/2007 401.1 HYPERTENSION, BENIGN ESSENTIAL 09/21/2007 788.30 INCONTINENCE ENURESOS/URINARY 09/21/2007 401.1 HYPERTENSION, BENIGN ESSENTIAL 09/21/2007 788.30 INCONTINENCE ENURESOS/URINARY 09/21/2007 401.1 HYPERTENSION, BENIGN ESSENTIAL 09/21/2007 788.30 INCONTINENCE ENURESOS/URINARY 09/21/2007 401.1 HYPERTENSION, BENIGN ESSENTIAL 09/21/2007 788.30 INCONTINENCE ENURESOS/URINARY 09/21/2007 ROMAN JOINTER SUBMARINE CABLE, JOSSE S 401.1 HYPERTENSION, BENIGN ESSENTIAL 09/21/2007 ROMAN YANG JOSSE S 788.30 INCONTINENCE ENURESOS/URINARY 09/21/2007 KYLE WADDELL MD 401.1 HYPERTENSION, BENIGN ESSENTIAL 09/21/2007 KYLE WADDELL MD 788.30 INCONTINENCE ENURESOS/URINARY 09/21/2007 SINGH DO, MERT K 401.1 HYPERTENSION, BENIGN ESSENTIAL 09/21/2007 SINGH DO, MERT K 788.30 INCONTINENCE ENURESOS/URINARY 09/21/2007 JALEESA SERRATO JR 401.1 HYPERTENSION, BENIGN ESSENTIAL 09/21/2007 JALEESA SERRATO JR S 788.30 INCONTINENCE ENURESOS/URINARY 09/21/2007 KYLE WADDELL MD 401.1 HYPERTENSION, BENIGN ESSENTIAL 09/21/2007 KYLE WADDELL MD 788.30 INCONTINENCE ENURESOS/URINARY 09/21/2007 JALEESA SERRATO JR S 401.1 HYPERTENSION, BENIGN ESSENTIAL 09/21/2007 JALEESA SERRATO JR S 788.30 INCONTINENCE ENURESOS/URINARY 09/21/2007 ARYAN MCDONALD APRNA J 401.1 HYPERTENSION, BENIGN ESSENTIAL 09/21/2007 HARRY YANG, CLAUS J 788.30 INCONTINENCE ENURESOS/URINARY 09/21/2007 MELONIE MCDONALD APRNINDA J 401.1 HYPERTENSION, BENIGN ESSENTIAL 09/21/2007 HARRY YANG, CLAUS J 788.30 INCONTINENCE ENURESOS/URINARY 09/21/2007 HARRY YANG CLAUS J 401.1 HYPERTENSION, BENIGN ESSENTIAL 09/21/2007 HARRY YANG, CLAUS J 788.30 INCONTINENCE ENURESOS/URINARY 09/21/2007 HARRY YANG, CLAUS J 401.1 HYPERTENSION, BENIGN ESSENTIAL 09/21/2007 HARRY YANG, CLAUS J 788.30 INCONTINENCE ENURESOS/URINARY 09/21/2007 HARRY YANG CLAUS J 401.1 HYPERTENSION, BENIGN ESSENTIAL 09/21/2007 HARRY YANG, CLAUS J 788.30 INCONTINENCE ENURESOS/URINARY 09/21/2007 HARRY YANG CLAUS J 401.1 HYPERTENSION, BENIGN ESSENTIAL 09/21/2007 HARRY YANG, CLAUS J 788.30 INCONTINENCE ENURESOS/URINARY 09/21/2007 HARRY YANG CLAUS J 401.1 HYPERTENSION, BENIGN ESSENTIAL 09/21/2007 HARRY JOINTER SUBMARINE CABLE, CLAUS J 788.30 INCONTINENCE ENURESOS/URINARY 09/21/2007 CASANOVA DDS, MAIKEL 401.1 HYPERTENSION, BENIGN ESSENTIAL 09/21/2007 CASANOVA MAHNAZS, MAIKEL 788.30 INCONTINENCE ENURESOS/URINARY 09/21/2007 HARRY JOINTER SUBMARINE CABLE, CLAUS J 401.1 HYPERTENSION, BENIGN ESSENTIAL 09/21/2007 HARRY JOINTER SUBMARINE CABLE, CLAUS J 788.30 INCONTINENCE ENURESOS/URINARY 09/21/2007 HARRY JOINTER SUBMARINE CABLE, CLAUS J 401.1 HYPERTENSION, BENIGN ESSENTIAL 09/21/2007 HARRY JOINTER SUBMARINE CABLE, CLAUS J 788.30 INCONTINENCE ENURESOS/URINARY 09/21/2007 HARRY JONESN, CLAUS J 401.1 HYPERTENSION, BENIGN ESSENTIAL 09/21/2007 HARRY JOINTER SUBMARINE CABLE, CLAUS J 788.30 INCONTINENCE ENURESOS/URINARY 11/04/2007 SHEA ZAMUDIO DO 295.60 SCHIZOPHRENIC DISORDERS RESIDUAL TYPE UNSPECIFIED STATE 11/04/2007 SHEA ZAMUDIO DO 299.00 AUTISTIC DISORDER CURRENT OR ACTIVE STATE 11/04/2007 SHEA ZAMUDIO DO 307.47 SI DYSSOMNIA NOS 11/04/2007 SHEA ZAMUDIO DO 316 PF PSYCHIC FACTORS MED COND 11/04/2007 SHEA ZAMUDIO DO 318.0 MODERATE MENTAL RETARDATION 11/04/2007 MUOGHALU DDS, PALAK N 295.60 SCHIZOPHRENIC DISORDERS RESIDUAL TYPE UNSPECIFIED STATE 11/04/2007 MUOGHALU DDS, PALAK N 299.00 AUTISTIC DISORDER CURRENT OR ACTIVE STATE 11/04/2007 MUOGHALU DDS, PALAK N 307.47 SI DYSSOMNIA NOS 11/04/2007 MUOGHALU DDS, PALAK N 316 PF PSYCHIC FACTORS MED COND 11/04/2007 MUOGHALU DDS, PALAK N 318.0 MODERATE MENTAL RETARDATION 11/04/2007 SHEA ZAMUDIO DO 295.60 SCHIZOPHRENIC DISORDERS RESIDUAL TYPE UNSPECIFIED STATE 11/04/2007 SHEA ZAMUDIO DO F 299.00 AUTISTIC DISORDER CURRENT OR ACTIVE STATE 11/04/2007 SHEA ZAMUDIO DO F 307.47 SI DYSSOMNIA NOS 11/04/2007 WERDER DO, SHEA F 316 PF PSYCHIC FACTORS MED COND 11/04/2007 SHEA ZAMUDIO DO 318.0 MODERATE MENTAL RETARDATION 11/04/2007 JOSSE OWENS APRN S 295.60 SCHIZOPHRENIC DISORDERS RESIDUAL TYPE UNSPECIFIED STATE 11/04/2007 JOSSE OWENS APRN S 299.00 AUTISTIC DISORDER CURRENT OR ACTIVE STATE 11/04/2007 JOSSE OWENS APRN S 307.47 SI DYSSOMNIA NOS 11/04/2007 JOSSE OWENS APRN S 316 PF PSYCHIC FACTORS MED COND 11/04/2007 JOSSE OWENS APRN S 318.0 MODERATE MENTAL RETARDATION 11/04/2007 295.60 SCHIZOPHRENIC DISORDERS RESIDUAL TYPE UNSPECIFIED STATE 11/04/2007 299.00 AUTISTIC DISORDER CURRENT OR ACTIVE STATE 11/04/2007 307.47 SI DYSSOMNIA NOS 11/04/2007 316 PF PSYCHIC FACTORS MED COND 11/04/2007 318.0 MODERATE MENTAL RETARDATION 11/04/2007 295.60 SCHIZOPHRENIC DISORDERS RESIDUAL TYPE UNSPECIFIED STATE 11/04/2007 299.00 AUTISTIC DISORDER CURRENT OR ACTIVE STATE 11/04/2007 307.47 SI DYSSOMNIA NOS 11/04/2007 316 PF PSYCHIC FACTORS MED COND 11/04/2007 318.0 MODERATE MENTAL RETARDATION 11/04/2007 295.60 SCHIZOPHRENIC DISORDERS RESIDUAL TYPE UNSPECIFIED STATE 11/04/2007 299.00 AUTISTIC DISORDER CURRENT OR ACTIVE STATE 11/04/2007 307.47 SI DYSSOMNIA NOS 11/04/2007 316 PF PSYCHIC FACTORS MED COND 11/04/2007 318.0 MODERATE MENTAL RETARDATION 11/04/2007 295.60 SCHIZOPHRENIC DISORDERS RESIDUAL TYPE UNSPECIFIED STATE 11/04/2007 299.00 AUTISTIC DISORDER CURRENT OR ACTIVE STATE 11/04/2007 307.47 SI DYSSOMNIA NOS 11/04/2007 316 PF PSYCHIC FACTORS MED COND 11/04/2007 318.0 MODERATE MENTAL RETARDATION 11/04/2007 295.60 SCHIZOPHRENIC DISORDERS RESIDUAL TYPE UNSPECIFIED STATE 11/04/2007 299.00 AUTISTIC DISORDER CURRENT OR ACTIVE STATE 11/04/2007 307.47 SI DYSSOMNIA NOS 11/04/2007 316 PF PSYCHIC FACTORS MED COND 11/04/2007 318.0 MODERATE MENTAL RETARDATION 11/04/2007 295.60 SCHIZOPHRENIC DISORDERS RESIDUAL TYPE UNSPECIFIED STATE 11/04/2007 299.00 AUTISTIC DISORDER CURRENT OR ACTIVE STATE 11/04/2007 307.47 SI DYSSOMNIA NOS 11/04/2007 316 PF PSYCHIC FACTORS MED COND 11/04/2007 318.0 MODERATE MENTAL RETARDATION 11/04/2007 FADY OWENS APRNNDA S 295.60 SCHIZOPHRENIC DISORDERS RESIDUAL TYPE UNSPECIFIED STATE 11/04/2007 ROMAN JOINTER SUBMARINE CABLE, JOSSE S 299.00 AUTISTIC DISORDER CURRENT OR ACTIVE STATE 11/04/2007 ROMAN JOINTER SUBMARINE CABLE, JOSSE S 307.47 SI DYSSOMNIA NOS 11/04/2007 ROMAN YANG JOSSE S 316 PF PSYCHIC FACTORS MED COND 11/04/2007 ROMAN YANG, JOSSE S 318.0 MODERATE MENTAL RETARDATION 11/04/2007 KYLE WADDELL MD 295.60 SCHIZOPHRENIC DISORDERS RESIDUAL TYPE UNSPECIFIED STATE 11/04/2007 KYLE WADDELL MD 299.00 AUTISTIC DISORDER CURRENT OR ACTIVE STATE 11/04/2007 KYLE WADDELL MD 307.47 SI DYSSOMNIA NOS 11/04/2007 KYLE WADDELL MD 316 PF PSYCHIC FACTORS MED COND 11/04/2007 KYLE WADDELL MD 318.0 MODERATE MENTAL RETARDATION 11/04/2007 SINGH DO MERT K 295.60 SCHIZOPHRENIC DISORDERS RESIDUAL TYPE UNSPECIFIED STATE 11/04/2007 SINGH DO MERT K 299.00 AUTISTIC DISORDER CURRENT OR ACTIVE STATE 11/04/2007 SINGH DO MERT K 307.47 SI DYSSOMNIA NOS 11/04/2007 SINGH DO MERT K 316 PF PSYCHIC FACTORS MED COND 11/04/2007 SAMANTHA DAMON MERT K 318.0 MODERATE MENTAL RETARDATION 11/04/2007 JALEESA SERRATO JR 295.60 SCHIZOPHRENIC DISORDERS RESIDUAL TYPE UNSPECIFIED STATE 11/04/2007 JALEESA SERRATO JR 299.00 AUTISTIC DISORDER CURRENT OR ACTIVE STATE 11/04/2007 JALEESA SERRATO JR 307.47 SI DYSSOMNIA NOS 11/04/2007 JALEESA SERRATO JR 316 PF PSYCHIC FACTORS MED COND 11/04/2007 JALEESA SERRATO JR 318.0 MODERATE MENTAL RETARDATION 11/04/2007 KYLE WADDELL MD 295.60 SCHIZOPHRENIC DISORDERS RESIDUAL TYPE UNSPECIFIED STATE 11/04/2007 KYLE WADDELL MD 299.00 AUTISTIC DISORDER CURRENT OR ACTIVE STATE 11/04/2007 KYLE WADDELL MD 307.47 SI DYSSOMNIA NOS 11/04/2007 KYLE WADDELL MD 316 PF PSYCHIC FACTORS MED COND 11/04/2007 KYLE WADDELL MD 318.0 MODERATE MENTAL RETARDATION 11/04/2007 JALEESA SERRATO JR 295.60 SCHIZOPHRENIC DISORDERS RESIDUAL TYPE UNSPECIFIED STATE 11/04/2007 JALEESA SERRATO JR 299.00 AUTISTIC DISORDER CURRENT OR ACTIVE STATE 11/04/2007 JALEESA SERRATO JR 307.47 SI DYSSOMNIA NOS 11/04/2007 JALEESA SERRATO JR 316 PF PSYCHIC FACTORS MED COND 11/04/2007 JALEESA SERRATO JR 318.0 MODERATE MENTAL RETARDATION 11/04/2007 HARRY YANG, CLAUS J 295.60 SCHIZOPHRENIC DISORDERS RESIDUAL TYPE UNSPECIFIED STATE 11/04/2007 HARRY JOINTER SUBMARINE CABLE, CLAUS J 299.00 AUTISTIC DISORDER CURRENT OR ACTIVE STATE 11/04/2007 HARRY JONESN, CLAUS J 307.47 SI DYSSOMNIA NOS 11/04/2007 HARRY JONESN, CLAUS J 316 PF PSYCHIC FACTORS MED COND 11/04/2007 HARRY JONESN, CLAUS J 318.0 MODERATE MENTAL RETARDATION 11/04/2007 HARRY JONESN, CLAUS J 295.60 SCHIZOPHRENIC DISORDERS RESIDUAL TYPE UNSPECIFIED STATE 11/04/2007 HARRY JOINTER SUBMARINE CABLE, CLAUS J 299.00 AUTISTIC DISORDER CURRENT OR ACTIVE STATE 11/04/2007 AHRRY JOINTER SUBMARINE CABLE, CLAUS J 307.47 SI DYSSOMNIA NOS 11/04/2007 HARRY JONESN, CLAUS J 316 PF PSYCHIC FACTORS MED COND 11/04/2007 HARRY JONESN, CLAUS J 318.0 MODERATE MENTAL RETARDATION 11/04/2007 HARRY JONESN, CLAUS J 295.60 SCHIZOPHRENIC DISORDERS RESIDUAL TYPE UNSPECIFIED STATE 11/04/2007 HARRY JOINTER SUBMARINE CABLE, CLAUS J 299.00 AUTISTIC DISORDER CURRENT OR ACTIVE STATE 11/04/2007 HARRY JOINTER SUBMARINE CABLE, CLAUS J 307.47 SI DYSSOMNIA NOS 11/04/2007 HARRY JOINTER SUBMARINE CABLE, CLAUS J 316 PF PSYCHIC FACTORS MED COND 11/04/2007 HARRY JOINTER SUBMARINE CABLE, CLAUS J 318.0 MODERATE MENTAL RETARDATION 11/04/2007 HARRY JOINTER SUBMARINE CABLE, CLAUS J 295.60 SCHIZOPHRENIC DISORDERS RESIDUAL TYPE UNSPECIFIED STATE 11/04/2007 HARRY JOINTER SUBMARINE CABLE, CLAUS J 299.00 AUTISTIC DISORDER CURRENT OR ACTIVE STATE 11/04/2007 HARRY JONESN, CLAUS J 307.47 SI DYSSOMNIA NOS 11/04/2007 MELONIE MCDONALD APRNINDA J 316 PF PSYCHIC FACTORS MED COND 11/04/2007 HARRY YANG CLAUS J 318.0 MODERATE MENTAL RETARDATION 11/04/2007 MELONIE MCDONALD APRNINDA J 295.60 SCHIZOPHRENIC DISORDERS RESIDUAL TYPE UNSPECIFIED STATE 11/04/2007 MELONIE MCDONALD APRNINDA J 299.00 AUTISTIC DISORDER CURRENT OR ACTIVE STATE 11/04/2007 MELONIE MCDONALD APRNINDA J 307.47 SI DYSSOMNIA NOS 11/04/2007 MELONIE MCDONALD APRNINDA J 316 PF PSYCHIC FACTORS MED COND 11/04/2007 HARRY YANG CLAUS J 318.0 MODERATE MENTAL RETARDATION 11/04/2007 HARRY YANG CLAUS J 295.60 SCHIZOPHRENIC DISORDERS RESIDUAL TYPE UNSPECIFIED STATE 11/04/2007 HARRY YANG CLAUS J 299.00 AUTISTIC DISORDER CURRENT OR ACTIVE STATE 11/04/2007 HARRY YANG CLAUS J 307.47 SI DYSSOMNIA NOS 11/04/2007 HARRY YANG CLAUS J 316 PF PSYCHIC FACTORS MED COND 11/04/2007 HARRY YANG CLAUS J 318.0 MODERATE MENTAL RETARDATION 11/04/2007 HARRY YANG, CLAUS J 295.60 SCHIZOPHRENIC DISORDERS RESIDUAL TYPE UNSPECIFIED STATE 11/04/2007 HARRY YANG CLAUS J 299.00 AUTISTIC DISORDER CURRENT OR ACTIVE STATE 11/04/2007 HARRY YANG CLAUS J 307.47 SI DYSSOMNIA NOS 11/04/2007 HARRY YANG CLAUS J 316 PF PSYCHIC FACTORS MED COND 11/04/2007 HARRY YANG CLAUS J 318.0 MODERATE MENTAL RETARDATION 11/04/2007 MAIKEL CASANOVA DDS 295.60 SCHIZOPHRENIC DISORDERS RESIDUAL TYPE UNSPECIFIED STATE 11/04/2007 CASANOVAMAIKEL COOPER DDS 299.00 AUTISTIC DISORDER CURRENT OR ACTIVE STATE 11/04/2007 MAIKEL CASANOVA DDS 307.47 SI DYSSOMNIA NOS 11/04/2007 MAIKEL CASANOVA DDS 316 PF PSYCHIC FACTORS MED COND 11/04/2007 CASANOVAMAIKEL COOPER DDS 318.0 MODERATE MENTAL RETARDATION 11/04/2007 HARRY YANG CLAUS J 295.60 SCHIZOPHRENIC DISORDERS RESIDUAL TYPE UNSPECIFIED STATE 11/04/2007 HARRY JOINTER SUBMARINE CABLE, CLAUS J 299.00 AUTISTIC DISORDER CURRENT OR ACTIVE STATE 11/04/2007 HARRY JOINTER SUBMARINE CABLE, CLAUS J 307.47 SI DYSSOMNIA NOS 11/04/2007 HARRY JOINTER SUBMARINE CABLE, CLAUS J 316 PF PSYCHIC FACTORS MED COND 11/04/2007 HARRY JOINTER SUBMARINE CABLE, CLAUS J 318.0 MODERATE MENTAL RETARDATION 11/04/2007 HARRY JOINTER SUBMARINE CABLE, CLAUS J 295.60 SCHIZOPHRENIC DISORDERS RESIDUAL TYPE UNSPECIFIED STATE 11/04/2007 HARRY JOINTER SUBMARINE CABLE, CLAUS J 299.00 AUTISTIC DISORDER CURRENT OR ACTIVE STATE 11/04/2007 HARRY JOINTER SUBMARINE CABLE, CLAUS J 307.47 SI DYSSOMNIA NOS 11/04/2007 HARRY JOINTER SUBMARINE CABLE, CLAUS J 316 PF PSYCHIC FACTORS MED COND 11/04/2007 HARRY JOINTER SUBMARINE CABLE, CLAUS J 318.0 MODERATE MENTAL RETARDATION 11/04/2007 HARRY JOINTER SUBMARINE CABLE, CLAUS J 295.60 SCHIZOPHRENIC DISORDERS RESIDUAL TYPE UNSPECIFIED STATE 11/04/2007 HARRY JOINTER SUBMARINE CABLE, CLAUS J 299.00 AUTISTIC DISORDER CURRENT OR ACTIVE STATE 11/04/2007 HARRY JOINTER SUBMARINE CABLE, CLAUS J 307.47 SI DYSSOMNIA NOS 11/04/2007 HARRY JOINTER SUBMARINE CABLE, CLAUS J 316 PF PSYCHIC FACTORS MED COND 11/04/2007 HARRY JOINTER SUBMARINE CABLE, CLAUS J 318.0 MODERATE MENTAL RETARDATION 11/19/2007 SHEA ZAMUDIO DO 564.00 CONSTIPATION CHRONIC 11/19/2007 TOD MATTA, PALAK Balbuena 564.00 CONSTIPATION CHRONIC 11/19/2007 SHEA ZAMUDIO DO 564.00 CONSTIPATION CHRONIC 11/19/2007 JOSSE OWENS APRN 564.00 CONSTIPATION CHRONIC 11/19/2007 564.00 CONSTIPATION CHRONIC 11/19/2007 564.00 CONSTIPATION CHRONIC 11/19/2007 564.00 CONSTIPATION CHRONIC 11/19/2007 564.00 CONSTIPATION CHRONIC 11/19/2007 564.00 CONSTIPATION CHRONIC 11/19/2007 564.00 CONSTIPATION CHRONIC 11/19/2007 JOSSE OWENS APRN 564.00 CONSTIPATION CHRONIC 11/19/2007 KYLE WADDELL MD 564.00 CONSTIPATION CHRONIC 11/19/2007 MERT SINGH DO 564.00 CONSTIPATION CHRONIC 11/19/2007 JALEESA SERRATO JR 564.00 CONSTIPATION CHRONIC 11/19/2007 KYLE WADDELL MD 564.00 CONSTIPATION CHRONIC 11/19/2007 JALEESA SERRATO JR 564.00 CONSTIPATION CHRONIC 11/19/2007 HARRY JOINTER SUBMARINE CABLE, CLAUS J 564.00 CONSTIPATION CHRONIC 11/19/2007 HARRY JOINTER SUBMARINE CABLE, CLAUS J 564.00 CONSTIPATION CHRONIC 11/19/2007 HARRY JOINTER SUBMARINE CABLE, CLAUS J 564.00 CONSTIPATION CHRONIC 11/19/2007 HARRY JOINTER SUBMARINE CABLE, CLAUS J 564.00 CONSTIPATION CHRONIC 11/19/2007 HARRY JOINTER SUBMARINE CABLE, CLAUS J 564.00 CONSTIPATION CHRONIC 11/19/2007 HARRY JOINTER SUBMARINE CABLE, CLAUS J 564.00 CONSTIPATION CHRONIC 11/19/2007 HARRY JOINTER SUBMARINE CABLE, CLAUS J 564.00 CONSTIPATION CHRONIC 11/19/2007 MAIKEL CASANOVA DDS 564.00 CONSTIPATION CHRONIC 11/19/2007 HARRY JOINTER SUBMARINE CABLE, CLAUS J 564.00 CONSTIPATION CHRONIC 11/19/2007 HARRY JOINTER SUBMARINE CABLE, CLAUS J 564.00 CONSTIPATION CHRONIC 11/19/2007 HARRY JONESN, CLAUS J 564.00 CONSTIPATION CHRONIC 11/29/2007 SHEA ZAMUDIO DO F 786.2 COUGH 11/29/2007 SHEA ZAMUDIO DO F 789.00 ABDOMINAL PAIN UNSPECIFIED SITE 11/29/2007 TOD MATTA, PALAK N 786.2 COUGH 11/29/2007 MUJAQUELIN MATTA, PALAK N 789.00 ABDOMINAL PAIN UNSPECIFIED SITE 11/29/2007 SHEA ZAMUDIO DO F 786.2 COUGH 11/29/2007 SHEA ZAMUDIO DO F 789.00 ABDOMINAL PAIN UNSPECIFIED SITE 11/29/2007 JOSSE OWENS APRN S 786.2 COUGH 11/29/2007 JOSSE OWENS APRN S 789.00 ABDOMINAL PAIN UNSPECIFIED SITE 11/29/2007 786.2 cough 11/29/2007 789.00 ABDOMINAL PAIN UNSPECIFIED SITE 11/29/2007 786.2 cough 11/29/2007 789.00 ABDOMINAL PAIN UNSPECIFIED SITE 11/29/2007 786.2 cough 11/29/2007 789.00 ABDOMINAL PAIN UNSPECIFIED SITE 11/29/2007 786.2 cough 11/29/2007 789.00 ABDOMINAL PAIN UNSPECIFIED SITE 11/29/2007 786.2 cough 11/29/2007 789.00 ABDOMINAL PAIN UNSPECIFIED SITE 11/29/2007 786.2 cough 11/29/2007 789.00 ABDOMINAL PAIN UNSPECIFIED SITE 11/29/2007 ROMANARLET YANG, JOSSE S 786.2 cough 11/29/2007 ROMAN YANG JOSSE S 789.00 ABDOMINAL PAIN UNSPECIFIED SITE 11/29/2007 KYLE WADDELL MD 786.2 cough 11/29/2007 KYLE WADDELL MD 789.00 ABDOMINAL PAIN UNSPECIFIED SITE 11/29/2007 SINGH DO, MERT K 786.2 cough 11/29/2007 SINGH DO, MERT K 789.00 ABDOMINAL PAIN UNSPECIFIED SITE 11/29/2007 JALEEAS SERRATO JR 786.2 cough 11/29/2007 JALEESA SERRATO JR S 789.00 ABDOMINAL PAIN UNSPECIFIED SITE 11/29/2007 KYLE WADDELL MD 786.2 cough 11/29/2007 KYLE WADDELL MD 789.00 ABDOMINAL PAIN UNSPECIFIED SITE 11/29/2007 JALEESA SERRATO JR S 786.2 cough 11/29/2007 JALEESA SERRATO JR S 789.00 ABDOMINAL PAIN UNSPECIFIED SITE 11/29/2007 HARRY JOINTER SUBMARINE CABLE, CLAUS J 786.2 cough 11/29/2007 HARRY JOINTER SUBMARINE CABLE, CLAUS J 789.00 ABDOMINAL PAIN UNSPECIFIED SITE 11/29/2007 HARRY JOINTER SUBMARINE CABLE, CLAUS J 786.2 cough 11/29/2007 HARRY JOINTER SUBMARINE CABLE, CLAUS J 789.00 ABDOMINAL PAIN UNSPECIFIED SITE 11/29/2007 HARRY JOINTER SUBMARINE CABLE, CLAUS J 786.2 cough 11/29/2007 HARRY JOINTER SUBMARINE CABLE, CLAUS J 789.00 ABDOMINAL PAIN UNSPECIFIED SITE 11/29/2007 HARRY JOINTER SUBMARINE CABLE, CLAUS J 786.2 cough 11/29/2007 HARRY JOINTER SUBMARINE CABLE, CLAUS J 789.00 ABDOMINAL PAIN UNSPECIFIED SITE 11/29/2007 HARRY JOINTER SUBMARINE CABLE, CLAUS J 786.2 cough 11/29/2007 HARRY JOINTER SUBMARINE CABLE, CLAUS J 789.00 ABDOMINAL PAIN UNSPECIFIED SITE 11/29/2007 HARRY JOINTER SUBMARINE CABLE, CLAUS J 786.2 cough 11/29/2007 HARRY JOINTER SUBMARINE CABLE, CLAUS J 789.00 ABDOMINAL PAIN UNSPECIFIED SITE 11/29/2007 HARRY JOINTER SUBMARINE CABLE, CLAUS J 786.2 cough 11/29/2007 HARRY JOINTER SUBMARINE CABLE, CLAUS J 789.00 ABDOMINAL PAIN UNSPECIFIED SITE 11/29/2007 EDILBERTO JOYASMAIKEL 786.2 cough 11/29/2007 CASANOVA MAHNAZS, MAIKEL 789.00 ABDOMINAL PAIN UNSPECIFIED SITE 11/29/2007 HARRY JOINTER SUBMARINE CABLE, CLAUS J 786.2 cough 11/29/2007 HARRY JOINTER SUBMARINE CABLE, CLAUS J 789.00 ABDOMINAL PAIN UNSPECIFIED SITE 11/29/2007 HARRY JOINTER SUBMARINE CABLE, CLAUS J 786.2 cough 11/29/2007 HARRY JOINTER SUBMARINE CABLE, CLAUS J 789.00 ABDOMINAL PAIN UNSPECIFIED SITE 11/29/2007 HARRY JOINTER SUBMARINE CABLE, CLAUS J 786.2 cough 11/29/2007 HARRY JOINTER SUBMARINE CABLE, CLAUS J 789.00 ABDOMINAL PAIN UNSPECIFIED SITE 05/24/2008 SHEA ZAMUDIO DO 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 05/24/2008 PALAK BARON DDS 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 05/24/2008 SHEA ZAMUDIO DO F 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 05/24/2008 JOSSE OWENS APRN 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 05/24/2008 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 05/24/2008 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 05/24/2008 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 05/24/2008 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 05/24/2008 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 05/24/2008 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 05/24/2008 JOSSE OWENS APRN 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 05/24/2008 KYLE WADDELL MD 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 05/24/2008 MERT SINGH DO 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 05/24/2008 JALEESA SERRATO JR 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 05/24/2008 KYLE WADDELL MD 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 05/24/2008 JALEESA SERRATO JR 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 05/24/2008 HARRY JOINTER SUBMARINE CABLE, CLAUS J 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 05/24/2008 HARRY JOINTER SUBMARINE CABLE, CLAUS J 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 05/24/2008 HARRY JOINTER SUBMARINE CABLE, CLAUS J 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 05/24/2008 HARRY JOINTER SUBMARINE CABLE, CLAUS J 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 05/24/2008 HARRY JOINTER SUBMARINE CABLE, CLAUS J 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 05/24/2008 HARRY JOINTER SUBMARINE CABLE, CLAUS J 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 05/24/2008 HARRY JOINTER SUBMARINE CABLE, CLAUS J 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 05/24/2008 MAIKEL CASANOVA DDS 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 05/24/2008 HARRY JOINTER SUBMARINE CABLE, CLAUS J 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 05/24/2008 HARRY JOINTER SUBMARINE CABLE, CLAUS J 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 05/24/2008 HARRY JOINTER SUBMARINE CABLE, CLAUS J 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 09/15/2008 SHEA ZAMUDIO DO 312.30 I IMPULSE CONTROL DISORDER NOS 09/15/2008 PALAK BARON DDS 312.30 I IMPULSE CONTROL DISORDER NOS 09/15/2008 SHEA ZAMUDIO DO F 312.30 I IMPULSE CONTROL DISORDER NOS 09/15/2008 JOSSE OWENS APRN 312.30 I IMPULSE CONTROL DISORDER NOS 09/15/2008 312.30 I IMPULSE CONTROL DISORDER NOS 09/15/2008 312.30 I IMPULSE CONTROL DISORDER NOS 09/15/2008 312.30 I IMPULSE CONTROL DISORDER NOS 09/15/2008 312.30 I IMPULSE CONTROL DISORDER NOS 09/15/2008 312.30 I IMPULSE CONTROL DISORDER NOS 09/15/2008 312.30 I IMPULSE CONTROL DISORDER NOS 09/15/2008 JOSSE OWENS APRN 312.30 I IMPULSE CONTROL DISORDER NOS 09/15/2008 KYLE WADDELL MD 312.30 I IMPULSE CONTROL DISORDER NOS 09/15/2008 MERT SINGH DO 312.30 I IMPULSE CONTROL DISORDER NOS 09/15/2008 JALEESA SERRATO JR 312.30 I IMPULSE CONTROL DISORDER NOS 09/15/2008 KYLE WADDELL MD 312.30 I IMPULSE CONTROL DISORDER NOS 09/15/2008 JALEESA SERRATO JR 312.30 I IMPULSE CONTROL DISORDER NOS 09/15/2008 HARRY JOINTER SUBMARINE CABLE, CLAUS J 312.30 I IMPULSE CONTROL DISORDER NOS 09/15/2008 HARRY JOINTER SUBMARINE CABLE, CLAUS J 312.30 I IMPULSE CONTROL DISORDER NOS 09/15/2008 HARRY JOINTER SUBMARINE CABLE, CLAUS J 312.30 I IMPULSE CONTROL DISORDER NOS 09/15/2008 HARRY JOINTER SUBMARINE CABLE, CLAUS J 312.30 I IMPULSE CONTROL DISORDER NOS 09/15/2008 HARRY JOINTER SUBMARINE CABLE, CLAUS J 312.30 I IMPULSE CONTROL DISORDER NOS 09/15/2008 HARRY JOINTER SUBMARINE CABLE, CLAUS J 312.30 I IMPULSE CONTROL DISORDER NOS 09/15/2008 HARRY JOINTER SUBMARINE CABLE, CLAUS J 312.30 I IMPULSE CONTROL DISORDER NOS 09/15/2008 MAIKEL CASANOVA DDS 312.30 I IMPULSE CONTROL DISORDER NOS 09/15/2008 HARRY JOINTER SUBMARINE CABLE, CLAUS J 312.30 I IMPULSE CONTROL DISORDER NOS 09/15/2008 HARRY JOINTER SUBMARINE CABLE, CLAUS J 312.30 I IMPULSE CONTROL DISORDER NOS 09/15/2008 HARRY JOINTER SUBMARINE CABLE, CLAUS J 312.30 I IMPULSE CONTROL DISORDER NOS 11/07/2008 SHEA ZAMUDIO DO F 295.10 P SCHIZO DISORG UNSPECIFIED 11/07/2008 PALAK BARON DDS 295.10 P SCHIZO DISORG UNSPECIFIED 11/07/2008 SHEA ZAMUDIO DO F 295.10 P SCHIZO DISORG UNSPECIFIED 11/07/2008 JOSSE OWENS APRN 295.10 P SCHIZO DISORG UNSPECIFIED 11/07/2008 295.10 P SCHIZO DISORG UNSPECIFIED 11/07/2008 295.10 P SCHIZO DISORG UNSPECIFIED 11/07/2008 295.10 P SCHIZO DISORG UNSPECIFIED 11/07/2008 295.10 P SCHIZO DISORG UNSPECIFIED 11/07/2008 295.10 P SCHIZO DISORG UNSPECIFIED 11/07/2008 295.10 P SCHIZO DISORG UNSPECIFIED 11/07/2008 JOSSE OWENS APRN 295.10 P SCHIZO DISORG UNSPECIFIED 11/07/2008 KYLE WADDELL MD 295.10 P SCHIZO DISORG UNSPECIFIED 11/07/2008 MERT SINGH DO 295.10 P SCHIZO DISORG UNSPECIFIED 11/07/2008 JALEESA SERRATO JR 295.10 P SCHIZO DISORG UNSPECIFIED 11/07/2008 KYLE WADDELL MD 295.10 P SCHIZO DISORG UNSPECIFIED 11/07/2008 JALEESA SERRATO JR S 295.10 P SCHIZO DISORG UNSPECIFIED 11/07/2008 HARRY JOINTER SUBMARINE CABLE, CLAUS J 295.10 P SCHIZO DISORG UNSPECIFIED 11/07/2008 HARRY JOINTER SUBMARINE CABLE, CLAUS J 295.10 P SCHIZO DISORG UNSPECIFIED 11/07/2008 HARRY JOINTER SUBMARINE CABLE, CLAUS J 295.10 P SCHIZO DISORG UNSPECIFIED 11/07/2008 HARRY JOINTER SUBMARINE CABLE, CLAUS J 295.10 P SCHIZO DISORG UNSPECIFIED 11/07/2008 HARRY JOINTER SUBMARINE CABLE, CLAUS J 295.10 P SCHIZO DISORG UNSPECIFIED 11/07/2008 HARRY YANG, CLAUS J 295.10 P SCHIZO DISORG UNSPECIFIED 11/07/2008 HARRY JOINTER SUBMARINE CABLE, CLAUS J 295.10 P SCHIZO DISORG UNSPECIFIED 11/07/2008 MAIKEL CAASNOVA DDS 295.10 P SCHIZO DISORG UNSPECIFIED 11/07/2008 HARRY YANG, CLAUS J 295.10 P SCHIZO DISORG UNSPECIFIED 11/07/2008 HARRY JOINTER SUBMARINE CABLE, CLAUS J 295.10 P SCHIZO DISORG UNSPECIFIED 11/07/2008 HARRY YANG, CLAUS J 295.10 P SCHIZO DISORG UNSPECIFIED 01/04/2009 SHEA ZAMUDIO DO F 466.0 ACUTE BRONCHITIS 01/04/2009 TOD MATTA, PALAK Balbuena 466.0 ACUTE BRONCHITIS 01/04/2009 SHEA ZAMUDIO DO 466.0 ACUTE BRONCHITIS 01/04/2009 JOSSE OWENS APRN 466.0 ACUTE BRONCHITIS 01/04/2009 466.0 ACUTE BRONCHITIS 01/04/2009 466.0 ACUTE BRONCHITIS 01/04/2009 466.0 ACUTE BRONCHITIS 01/04/2009 466.0 ACUTE BRONCHITIS 01/04/2009 466.0 ACUTE BRONCHITIS 01/04/2009 466.0 ACUTE BRONCHITIS 01/04/2009 ROMAN YANG JOSSE S 466.0 ACUTE BRONCHITIS 01/04/2009 KYLE WADDELL MD 466.0 ACUTE BRONCHITIS 01/04/2009 MERT SINGH DO 466.0 ACUTE BRONCHITIS 01/04/2009 JALEESA SERRATO JR S 466.0 ACUTE BRONCHITIS 01/04/2009 KYLE WADDELL MD 466.0 ACUTE BRONCHITIS 01/04/2009 AMA COYLE JALEESA S 466.0 ACUTE BRONCHITIS 01/04/2009 HARRY JOINTER SUBMARINE CABLE, CLAUS J 466.0 ACUTE BRONCHITIS 01/04/2009 HARRY JOINTER SUBMARINE CABLE, CLAUS J 466.0 ACUTE BRONCHITIS 01/04/2009 HARRY JOINTER SUBMARINE CABLE, CLAUS J 466.0 ACUTE BRONCHITIS 01/04/2009 HARRY JOINTER SUBMARINE CABLE, CLAUS J 466.0 ACUTE BRONCHITIS 01/04/2009 HARRY JOINTER SUBMARINE CABLE, CLAUS J 466.0 ACUTE BRONCHITIS 01/04/2009 HARRY JOINTER SUBMARINE CABLE, CLAUS J 466.0 ACUTE BRONCHITIS 01/04/2009 HARRY JOINTER SUBMARINE CABLE, CLAUS J 466.0 ACUTE BRONCHITIS 01/04/2009 MAIKEL CASANOVA DDS 466.0 ACUTE BRONCHITIS 01/04/2009 HARRY JOINTER SUBMARINE CABLE, CLAUS J 466.0 ACUTE BRONCHITIS 01/04/2009 HARRY JOINTER SUBMARINE CABLE, CLAUS J 466.0 ACUTE BRONCHITIS 01/04/2009 HARRY JOINTER SUBMARINE CABLE, CALUS J 466.0 ACUTE BRONCHITIS 01/15/2009 SHEA ZAMUDIO DO F 995.20 UNSPECIFIED ADVERSE EFFECT OF UNSPECIFIED DRUG, MEDICINAL AND BIOLOGICAL SUBSTANCE, NOT ELSEWHERE CLASSIFIED 01/15/2009 SHEA ZAMUDIO DO F E939.9 UNSPECIFIED PSYCHOTROPIC AGENTS CAUSING ADVERSE EFFECTS IN THERAPEUTIC USE 01/15/2009 TOD JOYAS, PALAK N 995.20 UNSPECIFIED ADVERSE EFFECT OF UNSPECIFIED DRUG, MEDICINAL AND BIOLOGICAL SUBSTANCE, NOT ELSEWHERE CLASSIFIED 01/15/2009 ANGELAHALU MAHNAZS, PALAK N E939.9 UNSPECIFIED PSYCHOTROPIC AGENTS CAUSING ADVERSE EFFECTS IN THERAPEUTIC USE 01/15/2009 SHEA ZAMUDIO DO F 995.20 UNSPECIFIED ADVERSE EFFECT OF UNSPECIFIED DRUG, MEDICINAL AND BIOLOGICAL SUBSTANCE, NOT ELSEWHERE CLASSIFIED 01/15/2009 SHEA ZAMUDIO DO F E939.9 UNSPECIFIED PSYCHOTROPIC AGENTS CAUSING ADVERSE EFFECTS IN THERAPEUTIC USE 01/15/2009 FADY OWENS APRNNDA S 995.20 UNSPECIFIED ADVERSE EFFECT OF UNSPECIFIED DRUG, MEDICINAL AND BIOLOGICAL SUBSTANCE, NOT ELSEWHERE CLASSIFIED 01/15/2009 JOSSE OWENS APRN E939.9 UNSPECIFIED PSYCHOTROPIC AGENTS CAUSING ADVERSE EFFECTS IN THERAPEUTIC USE 01/15/2009 995.20 UNSPECIFIED ADVERSE EFFECT OF UNSPECIFIED DRUG, MEDICINAL AND BIOLOGICAL SUBSTANCE, NOT ELSEWHERE CLASSIFIED 01/15/2009 E939.9 UNSPECIFIED PSYCHOTROPIC AGENTS CAUSING ADVERSE EFFECTS IN THERAPEUTIC USE 01/15/2009 995.20 UNSPECIFIED ADVERSE EFFECT OF UNSPECIFIED DRUG, MEDICINAL AND BIOLOGICAL SUBSTANCE, NOT ELSEWHERE CLASSIFIED 01/15/2009 E939.9 UNSPECIFIED PSYCHOTROPIC AGENTS CAUSING ADVERSE EFFECTS IN THERAPEUTIC USE 01/15/2009 995.20 UNSPECIFIED ADVERSE EFFECT OF UNSPECIFIED DRUG, MEDICINAL AND BIOLOGICAL SUBSTANCE, NOT ELSEWHERE CLASSIFIED 01/15/2009 E939.9 UNSPECIFIED PSYCHOTROPIC AGENTS CAUSING ADVERSE EFFECTS IN THERAPEUTIC USE 01/15/2009 995.20 UNSPECIFIED ADVERSE EFFECT OF UNSPECIFIED DRUG, MEDICINAL AND BIOLOGICAL SUBSTANCE, NOT ELSEWHERE CLASSIFIED 01/15/2009 E939.9 UNSPECIFIED PSYCHOTROPIC AGENTS CAUSING ADVERSE EFFECTS IN THERAPEUTIC USE 01/15/2009 995.20 UNSPECIFIED ADVERSE EFFECT OF UNSPECIFIED DRUG, MEDICINAL AND BIOLOGICAL SUBSTANCE, NOT ELSEWHERE CLASSIFIED 01/15/2009 E939.9 UNSPECIFIED PSYCHOTROPIC AGENTS CAUSING ADVERSE EFFECTS IN THERAPEUTIC USE 01/15/2009 995.20 UNSPECIFIED ADVERSE EFFECT OF UNSPECIFIED DRUG, MEDICINAL AND BIOLOGICAL SUBSTANCE, NOT ELSEWHERE CLASSIFIED 01/15/2009 E939.9 UNSPECIFIED PSYCHOTROPIC AGENTS CAUSING ADVERSE EFFECTS IN THERAPEUTIC USE 01/15/2009 JOSSE OWENS APRN S 995.20 UNSPECIFIED ADVERSE EFFECT OF UNSPECIFIED DRUG, MEDICINAL AND BIOLOGICAL SUBSTANCE, NOT ELSEWHERE CLASSIFIED 01/15/2009 JOSSE OWENS APRN E939.9 UNSPECIFIED PSYCHOTROPIC AGENTS CAUSING ADVERSE EFFECTS IN THERAPEUTIC USE 01/15/2009 KYLE WADDELL MD 995.20 UNSPECIFIED ADVERSE EFFECT OF UNSPECIFIED DRUG, MEDICINAL AND BIOLOGICAL SUBSTANCE, NOT ELSEWHERE CLASSIFIED 01/15/2009 KYLE WADDELL MD E939.9 UNSPECIFIED PSYCHOTROPIC AGENTS CAUSING ADVERSE EFFECTS IN THERAPEUTIC USE 01/15/2009 MERT SINGH DO 995.20 UNSPECIFIED ADVERSE EFFECT OF UNSPECIFIED DRUG, MEDICINAL AND BIOLOGICAL SUBSTANCE, NOT ELSEWHERE CLASSIFIED 01/15/2009 MERT SINGH DO E939.9 UNSPECIFIED PSYCHOTROPIC AGENTS CAUSING ADVERSE EFFECTS IN THERAPEUTIC USE 01/15/2009 JALEESA SERRATO JR 995.20 UNSPECIFIED ADVERSE EFFECT OF UNSPECIFIED DRUG, MEDICINAL AND BIOLOGICAL SUBSTANCE, NOT ELSEWHERE CLASSIFIED 01/15/2009 JALEESA SERRATO JR E939.9 UNSPECIFIED PSYCHOTROPIC AGENTS CAUSING ADVERSE EFFECTS IN THERAPEUTIC USE 01/15/2009 KYLE WADDELL MD 995.20 UNSPECIFIED ADVERSE EFFECT OF UNSPECIFIED DRUG, MEDICINAL AND BIOLOGICAL SUBSTANCE, NOT ELSEWHERE CLASSIFIED 01/15/2009 KYLE WADDELL MD E939.9 UNSPECIFIED PSYCHOTROPIC AGENTS CAUSING ADVERSE EFFECTS IN THERAPEUTIC USE 01/15/2009 JALEESA SERRATO JR 995.20 UNSPECIFIED ADVERSE EFFECT OF UNSPECIFIED DRUG, MEDICINAL AND BIOLOGICAL SUBSTANCE, NOT ELSEWHERE CLASSIFIED 01/15/2009 JALEESA SERRATO JR E939.9 UNSPECIFIED PSYCHOTROPIC AGENTS CAUSING ADVERSE EFFECTS IN THERAPEUTIC USE 01/15/2009 CLAUS MCDONALD APRN 995.20 UNSPECIFIED ADVERSE EFFECT OF UNSPECIFIED DRUG, MEDICINAL AND BIOLOGICAL SUBSTANCE, NOT ELSEWHERE CLASSIFIED 01/15/2009 CLAUS MCDONALD APRN E939.9 UNSPECIFIED PSYCHOTROPIC AGENTS CAUSING ADVERSE EFFECTS IN THERAPEUTIC USE 01/15/2009 CLAUS MCDONALD APRN 995.20 UNSPECIFIED ADVERSE EFFECT OF UNSPECIFIED DRUG, MEDICINAL AND BIOLOGICAL SUBSTANCE, NOT ELSEWHERE CLASSIFIED 01/15/2009 CLAUS MCDONALD APRN E939.9 UNSPECIFIED PSYCHOTROPIC AGENTS CAUSING ADVERSE EFFECTS IN THERAPEUTIC USE 01/15/2009 ARYAN MCDONALD APRNA J 995.20 UNSPECIFIED ADVERSE EFFECT OF UNSPECIFIED DRUG, MEDICINAL AND BIOLOGICAL SUBSTANCE, NOT ELSEWHERE CLASSIFIED 01/15/2009 CLAUS MCDONALD APRN E939.9 UNSPECIFIED PSYCHOTROPIC AGENTS CAUSING ADVERSE EFFECTS IN THERAPEUTIC USE 01/15/2009 ARYAN MCDONALD APRNA J 995.20 UNSPECIFIED ADVERSE EFFECT OF UNSPECIFIED DRUG, MEDICINAL AND BIOLOGICAL SUBSTANCE, NOT ELSEWHERE CLASSIFIED 01/15/2009 ARYAN MCDONALD APRNA Katerine E939.9 UNSPECIFIED PSYCHOTROPIC AGENTS CAUSING ADVERSE EFFECTS IN THERAPEUTIC USE 01/15/2009 ARYAN MCDONALD APRNA J 995.20 UNSPECIFIED ADVERSE EFFECT OF UNSPECIFIED DRUG, MEDICINAL AND BIOLOGICAL SUBSTANCE, NOT ELSEWHERE CLASSIFIED 01/15/2009 ARYAN MCDONALD APRNA J E939.9 UNSPECIFIED PSYCHOTROPIC AGENTS CAUSING ADVERSE EFFECTS IN THERAPEUTIC USE 01/15/2009 ARYAN MCDONALD APRNA J 995.20 UNSPECIFIED ADVERSE EFFECT OF UNSPECIFIED DRUG, MEDICINAL AND BIOLOGICAL SUBSTANCE, NOT ELSEWHERE CLASSIFIED 01/15/2009 CLAUS MCDONALD APRN E939.9 UNSPECIFIED PSYCHOTROPIC AGENTS CAUSING ADVERSE EFFECTS IN THERAPEUTIC USE 01/15/2009 CLAUS MCDONALD APRN 995.20 UNSPECIFIED ADVERSE EFFECT OF UNSPECIFIED DRUG, MEDICINAL AND BIOLOGICAL SUBSTANCE, NOT ELSEWHERE CLASSIFIED 01/15/2009 CLAUS MCDONALD APRN E939.9 UNSPECIFIED PSYCHOTROPIC AGENTS CAUSING ADVERSE EFFECTS IN THERAPEUTIC USE 01/15/2009 MAIKEL CASANOVA DDS 995.20 UNSPECIFIED ADVERSE EFFECT OF UNSPECIFIED DRUG, MEDICINAL AND BIOLOGICAL SUBSTANCE, NOT ELSEWHERE CLASSIFIED 01/15/2009 MAIKEL CASANOVA DDS E939.9 UNSPECIFIED PSYCHOTROPIC AGENTS CAUSING ADVERSE EFFECTS IN THERAPEUTIC USE 01/15/2009 CLAUS MCDONALD APRN 995.20 UNSPECIFIED ADVERSE EFFECT OF UNSPECIFIED DRUG, MEDICINAL AND BIOLOGICAL SUBSTANCE, NOT ELSEWHERE CLASSIFIED 01/15/2009 CLAUS MCDONALD APRN E939.9 UNSPECIFIED PSYCHOTROPIC AGENTS CAUSING ADVERSE EFFECTS IN THERAPEUTIC USE 01/15/2009 CLAUS MCDONALD APRN 995.20 UNSPECIFIED ADVERSE EFFECT OF UNSPECIFIED DRUG, MEDICINAL AND BIOLOGICAL SUBSTANCE, NOT ELSEWHERE CLASSIFIED 01/15/2009 CLAUS MCDONALD APRN E939.9 UNSPECIFIED PSYCHOTROPIC AGENTS CAUSING ADVERSE EFFECTS IN THERAPEUTIC USE 01/15/2009 CLAUS MCDONALD APRN 995.20 UNSPECIFIED ADVERSE EFFECT OF UNSPECIFIED DRUG, MEDICINAL AND BIOLOGICAL SUBSTANCE, NOT ELSEWHERE CLASSIFIED 01/15/2009 CLAUS MCDONALD APRN E939.9 UNSPECIFIED PSYCHOTROPIC AGENTS CAUSING ADVERSE EFFECTS IN THERAPEUTIC USE 07/05/2009 SHEA ZAMUDIO DO F 784.0 HEADACHE 07/05/2009 SHEA ZAMUDIO DO F V01.9 CONTACT WITH OR EXPOSURE TO UNSPECIFIED COMMUNICABLE DISEASE 07/05/2009 MUOGHALU DDS, PALAK N 784.0 HEADACHE 07/05/2009 MUOGHALU DDS, PALAK N V01.9 CONTACT WITH OR EXPOSURE TO UNSPECIFIED COMMUNICABLE DISEASE 07/05/2009 SHEA ZAMUDIO DO F 784.0 HEADACHE 07/05/2009 SHEA ZAMUDIO DO F V01.9 CONTACT WITH OR EXPOSURE TO UNSPECIFIED COMMUNICABLE DISEASE 07/05/2009 JOSSE OWENS APRN S 784.0 HEADACHE 07/05/2009 ROMAN JOINTER SUBMARINE CABLE, JOSSE S V01.9 CONTACT WITH OR EXPOSURE TO UNSPECIFIED COMMUNICABLE DISEASE 07/05/2009 784.0 HEADACHE 07/05/2009 V01.9 CONTACT WITH OR EXPOSURE TO UNSPECIFIED COMMUNICABLE DISEASE 07/05/2009 784.0 HEADACHE 07/05/2009 V01.9 CONTACT WITH OR EXPOSURE TO UNSPECIFIED COMMUNICABLE DISEASE 07/05/2009 784.0 HEADACHE 07/05/2009 V01.9 CONTACT WITH OR EXPOSURE TO UNSPECIFIED COMMUNICABLE DISEASE 07/05/2009 784.0 HEADACHE 07/05/2009 V01.9 CONTACT WITH OR EXPOSURE TO UNSPECIFIED COMMUNICABLE DISEASE 07/05/2009 784.0 HEADACHE 07/05/2009 V01.9 CONTACT WITH OR EXPOSURE TO UNSPECIFIED COMMUNICABLE DISEASE 07/05/2009 784.0 HEADACHE 07/05/2009 V01.9 CONTACT WITH OR EXPOSURE TO UNSPECIFIED COMMUNICABLE DISEASE 07/05/2009 JOSSE OWENS APRN S 784.0 HEADACHE 07/05/2009 SALBADOR OWENS APRNA S V01.9 CONTACT WITH OR EXPOSURE TO UNSPECIFIED COMMUNICABLE DISEASE 07/05/2009 KYLE WADDELL MD 784.0 HEADACHE 07/05/2009 KYLE WADDELL MD V01.9 CONTACT WITH OR EXPOSURE TO UNSPECIFIED COMMUNICABLE DISEASE 07/05/2009 SINGH DO, MERT K 784.0 HEADACHE 07/05/2009 SINGH DO MERT K V01.9 CONTACT WITH OR EXPOSURE TO UNSPECIFIED COMMUNICABLE DISEASE 07/05/2009 JALEESA SERRATO JR 784.0 HEADACHE 07/05/2009 JALEESA SERRATO JR V01.9 CONTACT WITH OR EXPOSURE TO UNSPECIFIED COMMUNICABLE DISEASE 07/05/2009 KYLE WADDELL MD 784.0 HEADACHE 07/05/2009 KYLE WADDELL MD V01.9 CONTACT WITH OR EXPOSURE TO UNSPECIFIED COMMUNICABLE DISEASE 07/05/2009 JALEESA SERRATO JR 784.0 HEADACHE 07/05/2009 JALEESA SERRATO JR V01.9 CONTACT WITH OR EXPOSURE TO UNSPECIFIED COMMUNICABLE DISEASE 07/05/2009 CLAUS MCDONALD APRN 784.0 HEADACHE 07/05/2009 CLAUS MCDONALD APRN J V01.9 CONTACT WITH OR EXPOSURE TO UNSPECIFIED COMMUNICABLE DISEASE 07/05/2009 ARYAN MCDONALD APRNA J 784.0 HEADACHE 07/05/2009 HARRY JOINTER SUBMARINE CABLE, CLAUS J V01.9 CONTACT WITH OR EXPOSURE TO UNSPECIFIED COMMUNICABLE DISEASE 07/05/2009 HARRY JOINTER SUBMARINE CABLE, CLAUS J 784.0 HEADACHE 07/05/2009 HARRY JOINTER SUBMARINE CABLE, CLAUS J V01.9 CONTACT WITH OR EXPOSURE TO UNSPECIFIED COMMUNICABLE DISEASE 07/05/2009 HARRY JOINTER SUBMARINE CABLE, CLAUS J 784.0 HEADACHE 07/05/2009 HARRY JOINTER SUBMARINE CABLE, CLAUS J V01.9 CONTACT WITH OR EXPOSURE TO UNSPECIFIED COMMUNICABLE DISEASE 07/05/2009 HARRY JOINTER SUBMARINE CABLE, CLAUS J 784.0 HEADACHE 07/05/2009 HARRY JOINTER SUBMARINE CABLE, CLAUS J V01.9 CONTACT WITH OR EXPOSURE TO UNSPECIFIED COMMUNICABLE DISEASE 07/05/2009 HARRY JOINTER SUBMARINE CABLE, CLAUS J 784.0 HEADACHE 07/05/2009 HARRY JOINTER SUBMARINE CABLE, CLAUS J V01.9 CONTACT WITH OR EXPOSURE TO UNSPECIFIED COMMUNICABLE DISEASE 07/05/2009 HARRY JONESN, CLAUS J 784.0 HEADACHE 07/05/2009 HARRY JONESN, CLAUS J V01.9 CONTACT WITH OR EXPOSURE TO UNSPECIFIED COMMUNICABLE DISEASE 07/05/2009 CASANOVA DDS, MAIKEL 784.0 HEADACHE 07/05/2009 CASANOVA DDS, MAIKEL V01.9 CONTACT WITH OR EXPOSURE TO UNSPECIFIED COMMUNICABLE DISEASE 07/05/2009 HARRY JONESN, CLAUS J 784.0 HEADACHE 07/05/2009 HARRY JOINTER SUBMARINE CABLE, CLAUS J V01.9 CONTACT WITH OR EXPOSURE TO UNSPECIFIED COMMUNICABLE DISEASE 07/05/2009 HARRY JONESN, CLAUS J 784.0 HEADACHE 07/05/2009 HARRY JONESN, CLAUS J V01.9 CONTACT WITH OR EXPOSURE TO UNSPECIFIED COMMUNICABLE DISEASE 07/05/2009 HARRY JOINTER SUBMARINE CABLE, CLAUS J 784.0 HEADACHE 07/05/2009 HARRY JOINTER SUBMARINE CABLE, CLAUS J V01.9 CONTACT WITH OR EXPOSURE TO UNSPECIFIED COMMUNICABLE DISEASE 08/21/2009 SHEA ZAMUDIO DO F 285.9 ANEMIA 08/21/2009 TOD JOYAS, PALAK N 285.9 ANEMIA 08/21/2009 SHEA ZAMUDIO DO F 285.9 ANEMIA 08/21/2009 JOSSE OWENS APRN 285.9 ANEMIA 08/21/2009 285.9 ANEMIA 08/21/2009 285.9 ANEMIA 08/21/2009 285.9 ANEMIA 08/21/2009 285.9 ANEMIA 08/21/2009 285.9 ANEMIA 08/21/2009 285.9 ANEMIA 08/21/2009 JOSSE OWENS APRN 285.9 ANEMIA 08/21/2009 KYLE WADDELL MD 285.9 ANEMIA 08/21/2009 SAMANTHA DAMON MERT Dillon 285.9 ANEMIA 08/21/2009 JALEESA SERRATO JR 285.9 ANEMIA 08/21/2009 KYLE WADDELL MD 285.9 ANEMIA 08/21/2009 JALEESA SERRATO JR 285.9 ANEMIA 08/21/2009 HARRY JOINTER SUBMARINE CABLE, CLAUS J 285.9 ANEMIA 08/21/2009 HARRY JOINTER SUBMARINE CABLE, CLAUS J 285.9 ANEMIA 08/21/2009 HARRY JOINTER SUBMARINE CABLE, CLAUS J 285.9 ANEMIA 08/21/2009 HARRY JOINTER SUBMARINE CABLE, CLAUS J 285.9 ANEMIA 08/21/2009 HARRY JOINTER SUBMARINE CABLE, CLAUS J 285.9 ANEMIA 08/21/2009 HARRY JOINTER SUBMARINE CABLE, CLAUS J 285.9 ANEMIA 08/21/2009 HARRY JOINTER SUBMARINE CABLE, CLAUS J 285.9 ANEMIA 08/21/2009 MAIKEL CASANOVA DDS 285.9 ANEMIA 08/21/2009 HARRY JOINTER SUBMARINE CABLE, CLAUS J 285.9 ANEMIA 08/21/2009 HARRY JOINTER SUBMARINE CABLE, CLAUS J 285.9 ANEMIA 08/21/2009 HARRY JOINTER SUBMARINE CABLE, CLAUS J 285.9 ANEMIA 10/26/2009 SHEA ZAMUDIO DO V74.1 SCREENING EXAMINATION FOR PULMONARY TUBERCULOSIS 10/26/2009 OTD MATTA, PALAK Balbuena V74.1 SCREENING EXAMINATION FOR PULMONARY TUBERCULOSIS 10/26/2009 SHEA ZAMUDIO DO V74.1 SCREENING EXAMINATION FOR PULMONARY TUBERCULOSIS 10/26/2009 JOSSE OWENS APRN V74.1 SCREENING EXAMINATION FOR PULMONARY TUBERCULOSIS 10/26/2009 V74.1 SCREENING EXAMINATION FOR PULMONARY TUBERCULOSIS 10/26/2009 V74.1 SCREENING EXAMINATION FOR PULMONARY TUBERCULOSIS 10/26/2009 V74.1 SCREENING EXAMINATION FOR PULMONARY TUBERCULOSIS 10/26/2009 V74.1 SCREENING EXAMINATION FOR PULMONARY TUBERCULOSIS 10/26/2009 V74.1 SCREENING EXAMINATION FOR PULMONARY TUBERCULOSIS 10/26/2009 V74.1 SCREENING EXAMINATION FOR PULMONARY TUBERCULOSIS 10/26/2009 JOSSE OWENS APRN V74.1 SCREENING EXAMINATION FOR PULMONARY TUBERCULOSIS 10/26/2009 KYLE WADDELL MD V74.1 SCREENING EXAMINATION FOR PULMONARY TUBERCULOSIS 10/26/2009 MERT SINGH DO V74.1 SCREENING EXAMINATION FOR PULMONARY TUBERCULOSIS 10/26/2009 JALEESA SERRATO JR V74.1 SCREENING EXAMINATION FOR PULMONARY TUBERCULOSIS 10/26/2009 KYLE WADDELL MD V74.1 SCREENING EXAMINATION FOR PULMONARY TUBERCULOSIS 10/26/2009 JALEESA SERRATO JR V74.1 SCREENING EXAMINATION FOR PULMONARY TUBERCULOSIS 10/26/2009 HARRY YANG, CLAUS J V74.1 SCREENING EXAMINATION FOR PULMONARY TUBERCULOSIS 10/26/2009 HARRY YANG, CLAUS J V74.1 SCREENING EXAMINATION FOR PULMONARY TUBERCULOSIS 10/26/2009 HARRY YANG, CLAUS J V74.1 SCREENING EXAMINATION FOR PULMONARY TUBERCULOSIS 10/26/2009 HARRY YANG, CLAUS J V74.1 SCREENING EXAMINATION FOR PULMONARY TUBERCULOSIS 10/26/2009 HARRY YANG, CLAUS J V74.1 SCREENING EXAMINATION FOR PULMONARY TUBERCULOSIS 10/26/2009 HARRY YANG, CLAUS J V74.1 SCREENING EXAMINATION FOR PULMONARY TUBERCULOSIS 10/26/2009 HARRY YANG, CLAUS J V74.1 SCREENING EXAMINATION FOR PULMONARY TUBERCULOSIS 10/26/2009 MAIKEL CASANOVA DDS V74.1 SCREENING EXAMINATION FOR PULMONARY TUBERCULOSIS 10/26/2009 HARRY YANG, CLAUS J V74.1 SCREENING EXAMINATION FOR PULMONARY TUBERCULOSIS 10/26/2009 HARRY YANG, CLAUS J V74.1 SCREENING EXAMINATION FOR PULMONARY TUBERCULOSIS 10/26/2009 HARRY YANG, CLAUS J V74.1 SCREENING EXAMINATION FOR PULMONARY TUBERCULOSIS 05/02/2010 SHEA ZAMUDIO DO 295.40 SCHIZOPHRENIFORM DISORDER UNSPECIFIED STATE 05/02/2010 PALAK BARON DDS 295.40 SCHIZOPHRENIFORM DISORDER UNSPECIFIED STATE 05/02/2010 SHEA ZAMUDIO DO 295.40 SCHIZOPHRENIFORM DISORDER UNSPECIFIED STATE 05/02/2010 JOSSE WOENS APRN 295.40 SCHIZOPHRENIFORM DISORDER UNSPECIFIED STATE 05/02/2010 295.40 SCHIZOPHRENIFORM DISORDER UNSPECIFIED STATE 05/02/2010 295.40 SCHIZOPHRENIFORM DISORDER UNSPECIFIED STATE 05/02/2010 295.40 SCHIZOPHRENIFORM DISORDER UNSPECIFIED STATE 05/02/2010 295.40 SCHIZOPHRENIFORM DISORDER UNSPECIFIED STATE 05/02/2010 295.40 SCHIZOPHRENIFORM DISORDER UNSPECIFIED STATE 05/02/2010 295.40 SCHIZOPHRENIFORM DISORDER UNSPECIFIED STATE 05/02/2010 JOSSE OWENS APRN 295.40 SCHIZOPHRENIFORM DISORDER UNSPECIFIED STATE 05/02/2010 KYLE WADDELL MD 295.40 SCHIZOPHRENIFORM DISORDER UNSPECIFIED STATE 05/02/2010 SAMANTHA DAMON MERT K 295.40 SCHIZOPHRENIFORM DISORDER UNSPECIFIED STATE 05/02/2010 JALEESA SERRATO JR 295.40 SCHIZOPHRENIFORM DISORDER UNSPECIFIED STATE 05/02/2010 KYLE WADDELL MD 295.40 SCHIZOPHRENIFORM DISORDER UNSPECIFIED STATE 05/02/2010 JALEESA SERRATO JR 295.40 SCHIZOPHRENIFORM DISORDER UNSPECIFIED STATE 05/02/2010 HARRY JOINTER SUBMARINE CABLE, CLAUS J 295.40 SCHIZOPHRENIFORM DISORDER UNSPECIFIED STATE 05/02/2010 HARRY JONESN, CLAUS J 295.40 SCHIZOPHRENIFORM DISORDER UNSPECIFIED STATE 05/02/2010 HARRY JONESN, CLAUS J 295.40 SCHIZOPHRENIFORM DISORDER UNSPECIFIED STATE 05/02/2010 HARRY JONESN, CLAUS J 295.40 SCHIZOPHRENIFORM DISORDER UNSPECIFIED STATE 05/02/2010 HARRY JONESN, CLAUS J 295.40 SCHIZOPHRENIFORM DISORDER UNSPECIFIED STATE 05/02/2010 HARRY JOINTER SUBMARINE CABLE, CLAUS J 295.40 SCHIZOPHRENIFORM DISORDER UNSPECIFIED STATE 05/02/2010 HARRY JOINTER SUBMARINE CABLE, CLAUS J 295.40 SCHIZOPHRENIFORM DISORDER UNSPECIFIED STATE 05/02/2010 MAIKEL CASANOVA DDS 295.40 SCHIZOPHRENIFORM DISORDER UNSPECIFIED STATE 05/02/2010 HARRY JONESN, CLAUS J 295.40 SCHIZOPHRENIFORM DISORDER UNSPECIFIED STATE 05/02/2010 HARRY JONESN, CLAUS J 295.40 SCHIZOPHRENIFORM DISORDER UNSPECIFIED STATE 05/02/2010 HARRY JOINTER SUBMARINE CABLE, CLAUS J 295.40 SCHIZOPHRENIFORM DISORDER UNSPECIFIED STATE 11/26/2010 SHEA ZAMUDIO DO F 786.52 PAINFUL RESPIRATION 11/26/2010 PALAK BARON DDS 786.52 PAINFUL RESPIRATION 11/26/2010 ROSA ZAMUDIO DOEN F 786.52 PAINFUL RESPIRATION 11/26/2010 JOSSE OWENS APRN 786.52 PAINFUL RESPIRATION 11/26/2010 786.52 PAINFUL RESPIRATION 11/26/2010 786.52 PAINFUL RESPIRATION 11/26/2010 786.52 PAINFUL RESPIRATION 11/26/2010 786.52 PAINFUL RESPIRATION 11/26/2010 786.52 PAINFUL RESPIRATION 11/26/2010 786.52 PAINFUL RESPIRATION 11/26/2010 JOSSE OWENS APRN 786.52 PAINFUL RESPIRATION 11/26/2010 KYLE WADDELL MD 786.52 PAINFUL RESPIRATION 11/26/2010 SINGH MERT DAMON 786.52 PAINFUL RESPIRATION 11/26/2010 JALEESA SERRATO JR S 786.52 PAINFUL RESPIRATION 11/26/2010 KYLE WADDELL MD 786.52 PAINFUL RESPIRATION 11/26/2010 JALEESA SERRATO JR S 786.52 PAINFUL RESPIRATION 11/26/2010 HARRY JOINTER SUBMARINE CABLE, CLAUS J 786.52 PAINFUL RESPIRATION 11/26/2010 HARRY JOINTER SUBMARINE CABLE, CLAUS J 786.52 PAINFUL RESPIRATION 11/26/2010 HARRY JOINTER SUBMARINE CABLE, CLAUS J 786.52 PAINFUL RESPIRATION 11/26/2010 HARRY JOINTER SUBMARINE CABLE, CLAUS J 786.52 PAINFUL RESPIRATION 11/26/2010 HARRY JOINTER SUBMARINE CABLE, CLAUS J 786.52 PAINFUL RESPIRATION 11/26/2010 HARRY JOINTER SUBMARINE CABLE, CLAUS J 786.52 PAINFUL RESPIRATION 11/26/2010 HARRY JOINTER SUBMARINE CABLE, CLAUS J 786.52 PAINFUL RESPIRATION 11/26/2010 MAIKEL CASANOVA DDS 786.52 PAINFUL RESPIRATION 11/26/2010 HARRY JOINTER SUBMARINE CABLE, CLAUS J 786.52 PAINFUL RESPIRATION 11/26/2010 HARRY JOINTER SUBMARINE CABLE, CLAUS J 786.52 PAINFUL RESPIRATION 11/26/2010 HARRY JOINTER SUBMARINE CABLE, CLAUS J 786.52 PAINFUL RESPIRATION 03/13/2011 SHEA ZAMUDIO DO F 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 03/13/2011 SHEA ZAMUDIO DO F 317 MENTAL RETARDATION-MILD 03/13/2011 MUOGHALU DDS, PALAK N 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 03/13/2011 MUOGHALU DDS, PALAK N 317 MENTAL RETARDATION-MILD 03/13/2011 SHEA ZAMUDIO DO F 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 03/13/2011 SHEA ZAMUDIO DO F 317 MENTAL RETARDATION-MILD 03/13/2011 JOSSE OWENS APRN S 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 03/13/2011 JOSSE OWENS APRN 317 MENTAL RETARDATION-MILD 03/13/2011 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 03/13/2011 317 MENTAL RETARDATION-MILD 03/13/2011 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 03/13/2011 317 MENTAL RETARDATION-MILD 03/13/2011 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 03/13/2011 317 MENTAL RETARDATION-MILD 03/13/2011 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 03/13/2011 317 MENTAL RETARDATION-MILD 03/13/2011 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 03/13/2011 317 MENTAL RETARDATION-MILD 03/13/2011 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 03/13/2011 317 MENTAL RETARDATION-MILD 03/13/2011 JOSSE OWENS APRN S 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 03/13/2011 SALBADOR OWENS APRNA S 317 MENTAL RETARDATION-MILD 03/13/2011 KYLE WADDELL MD 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 03/13/2011 KYLE WADDELL MD 317 MENTAL RETARDATION-MILD 03/13/2011 SINGH DOCALIA K 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 03/13/2011 SINGH DOCALIA K 317 MENTAL RETARDATION-MILD 03/13/2011 JALEESA SERRATO JR 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 03/13/2011 JALEESA SERRATO JR 317 MENTAL RETARDATION-MILD 03/13/2011 KYLE WADDELL MD 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 03/13/2011 KYLE WADDELL MD 317 MENTAL RETARDATION-MILD 03/13/2011 JALEESA SERRATO JR S 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 03/13/2011 JALEESA SERRATO JR S 317 MENTAL RETARDATION-MILD 03/13/2011 ARYAN MCDONALD APRNA J 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 03/13/2011 HARRY YANG CLAUS J 317 MENTAL RETARDATION-MILD 03/13/2011 HARRY YANG CLAUS J 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 03/13/2011 HARRY YANG CLAUS J 317 MENTAL RETARDATION-MILD 03/13/2011 HARRY YANG CLAUS J 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 03/13/2011 HARRY YANG CLAUS J 317 MENTAL RETARDATION-MILD 03/13/2011 ARYAN MCDONALD APRNA J 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 03/13/2011 HARRY JOINTER SUBMARINE CABLE, CLAUS J 317 MENTAL RETARDATION-MILD 03/13/2011 HARRY JOINTER SUBMARINE CABLE, CLAUS J 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 03/13/2011 HARRY JOINTER SUBMARINE CABLE, CLAUS J 317 MENTAL RETARDATION-MILD 03/13/2011 HARRY JOINTER SUBMARINE CABLE, CLAUS J 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 03/13/2011 HARRY JOINTER SUBMARINE CABLE, CLAUS J 317 MENTAL RETARDATION-MILD 03/13/2011 HARRY JOINTER SUBMARINE CABLE, CLAUS J 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 03/13/2011 HARRY JOINTER SUBMARINE CABLE, CLAUS J 317 MENTAL RETARDATION-MILD 03/13/2011 CASANOVA DDS, MAIKEL 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 03/13/2011 CASANOVA DDS, MAIKEL 317 MENTAL RETARDATION-MILD 03/13/2011 HARRY JOINTER SUBMARINE CABLE, CLAUS J 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 03/13/2011 HARRY JOINTER SUBMARINE CABLE, CLAUS J 317 MENTAL RETARDATION-MILD 03/13/2011 HARRY JOINTER SUBMARINE CABLE, CLAUS J 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 03/13/2011 HARRY JOINTER SUBMARINE CABLE, CLAUS J 317 MENTAL RETARDATION-MILD 03/13/2011 HARRY JOINTER SUBMARINE CABLE, CLAUS J 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 03/13/2011 HARRY JOINTER SUBMARINE CABLE, CLAUS J 317 MENTAL RETARDATION-MILD 05/01/2011 SHEA ZAMUDIO DO V70.0 EXAM - ROUTINE H&P 05/01/2011 TOD JOYAS, PALAK Balbuena V70.0 EXAM - ROUTINE H&P 05/01/2011 SHEA ZAMUDIO DO V70.0 EXAM - ROUTINE H&P 05/01/2011 JOSSE OWENS APRN V70.0 EXAM - ROUTINE H&P 05/01/2011 V70.0 EXAM - ROUTINE H&P 05/01/2011 V70.0 EXAM - ROUTINE H&P 05/01/2011 V70.0 EXAM - ROUTINE H&P 05/01/2011 V70.0 EXAM - ROUTINE H&P 05/01/2011 V70.0 EXAM - ROUTINE H&P 05/01/2011 V70.0 EXAM - ROUTINE H&P 05/01/2011 JOSSE OWENS APRN V70.0 EXAM - ROUTINE H&P 05/01/2011 KYLE WADDELL MD V70.0 EXAM - ROUTINE H&P 05/01/2011 MERT SINGH DO V70.0 EXAM - ROUTINE H&P 05/01/2011 JALEESA SERRATO JR V70.0 EXAM - ROUTINE H&P 05/01/2011 KYLE WADDELL MD V70.0 EXAM - ROUTINE H&P 05/01/2011 JALEESA SERRATO JR V70.0 EXAM - ROUTINE H&P 05/01/2011 HARRY JOINTER SUBMARINE CABLE, CLAUS J V70.0 EXAM - ROUTINE H&P 05/01/2011 HARRY YANG, CLAUS J V70.0 EXAM - ROUTINE H&P 05/01/2011 HARRY YANG, CLAUS J V70.0 EXAM - ROUTINE H&P 05/01/2011 HARRY JOINTER SUBMARINE CABLE, CLAUS J V70.0 EXAM - ROUTINE H&P 05/01/2011 HARRY JOINTER SUBMARINE CABLE, CLAUS J V70.0 EXAM - ROUTINE H&P 05/01/2011 HARRY YANG, CLAUS J V70.0 EXAM - ROUTINE H&P 05/01/2011 HARRY YANG, CLAUS J V70.0 EXAM - ROUTINE H&P 05/01/2011 MAIKEL CASANOVA DDS V70.0 EXAM - ROUTINE H&P 05/01/2011 HARRY YANG, CLAUS J V70.0 EXAM - ROUTINE H&P 05/01/2011 HARRY YANG, CLAUS J V70.0 EXAM - ROUTINE H&P 05/01/2011 HARRY YANG, CLAUS J V70.0 EXAM - ROUTINE H&P 10/07/2011 SHEA ZAMUDIO DO 780.39 SEIZURES OTHER 10/07/2011 TOD MATTA, PALAK Balbuena 780.39 SEIZURES OTHER 10/07/2011 SHEA ZAMUDIO DO 780.39 SEIZURES OTHER 10/07/2011 JOSSE OWENS APRN 780.39 SEIZURES OTHER 10/07/2011 780.39 SEIZURES OTHER 10/07/2011 780.39 SEIZURES OTHER 10/07/2011 780.39 SEIZURES OTHER 10/07/2011 780.39 SEIZURES OTHER 10/07/2011 780.39 SEIZURES OTHER 10/07/2011 780.39 SEIZURES OTHER 10/07/2011 JOSSE OWENS APRN 780.39 SEIZURES OTHER 10/07/2011 KYLE WADDELL MD 780.39 SEIZURES OTHER 10/07/2011 MERT SINGH DO 780.39 SEIZURES OTHER 10/07/2011 JALEESA SERRATO JR 780.39 SEIZURES OTHER 10/07/2011 KYLE WADDELL MD 780.39 SEIZURES OTHER 10/07/2011 JALEESA SERRATO JR 780.39 SEIZURES OTHER 10/07/2011 HARRY JOINTER SUBMARINE CABLE, CLAUS J 780.39 SEIZURES OTHER 10/07/2011 HARRY JOINTER SUBMARINE CABLE, CLAUS J 780.39 SEIZURES OTHER 10/07/2011 HARRY JOINTER SUBMARINE CABLE, CLAUS J 780.39 SEIZURES OTHER 10/07/2011 HARRY JOINTER SUBMARINE CABLE, CLAUS J 780.39 SEIZURES OTHER 10/07/2011 HARRY JOINTER SUBMARINE CABLE, CLAUS J 780.39 SEIZURES OTHER 10/07/2011 HARRY JOINTER SUBMARINE CABLE, CLAUS J 780.39 SEIZURES OTHER 10/07/2011 HARRY JOINTER SUBMARINE CABLE, CLAUS J 780.39 SEIZURES OTHER 10/07/2011 MAIKEL CASANOVA DDS 780.39 SEIZURES OTHER 10/07/2011 HARRY JOINTER SUBMARINE CABLE, CLAUS J 780.39 SEIZURES OTHER 10/07/2011 HARRY JOINTER SUBMARINE CABLE, CLAUS J 780.39 SEIZURES OTHER 10/07/2011 HARRY JOINTER SUBMARINE CABLE, CLAUS J 780.39 SEIZURES OTHER 07/21/2012 522.5 PERIAPICAL ABSCESS WITHOUT SINUS 07/21/2012 522.5 PERIAPICAL ABSCESS WITHOUT SINUS 07/21/2012 522.5 PERIAPICAL ABSCESS WITHOUT SINUS 07/21/2012 JOSSE OWENS APRN 522.5 PERIAPICAL ABSCESS WITHOUT SINUS 07/21/2012 KYLE WADDELL MD 522.5 PERIAPICAL ABSCESS WITHOUT SINUS 07/21/2012 MERT SINGH DO 522.5 PERIAPICAL ABSCESS WITHOUT SINUS 07/21/2012 JALEESA SERRATO JR 522.5 PERIAPICAL ABSCESS WITHOUT SINUS 07/21/2012 KYLE WADDELL MD 522.5 PERIAPICAL ABSCESS WITHOUT SINUS 07/21/2012 JALEESA SERRATO JR 522.5 PERIAPICAL ABSCESS WITHOUT SINUS 07/21/2012 HARRY YANG, CLAUS J 522.5 PERIAPICAL ABSCESS WITHOUT SINUS 07/21/2012 HARRY YANG, CLAUS J 522.5 PERIAPICAL ABSCESS WITHOUT SINUS 07/21/2012 HARRY JOINTER SUBMARINE CABLE, CLAUS J 522.5 PERIAPICAL ABSCESS WITHOUT SINUS 07/21/2012 HARRY JOINTER SUBMARINE CABLE, CLAUS J 522.5 PERIAPICAL ABSCESS WITHOUT SINUS 07/21/2012 HARRY JOINTER SUBMARINE CABLE, CLAUS J 522.5 PERIAPICAL ABSCESS WITHOUT SINUS 07/21/2012 HARRY JOINTER SUBMARINE CABLE, CLAUS J 522.5 PERIAPICAL ABSCESS WITHOUT SINUS 07/21/2012 HARRY JOINTER SUBMARINE CABLE, CLAUS J 522.5 PERIAPICAL ABSCESS WITHOUT SINUS 07/21/2012 MAIKEL CASANOVA DDS 522.5 PERIAPICAL ABSCESS WITHOUT SINUS 07/21/2012 HARRY JOINTER SUBMARINE CABLE, CLAUS J 522.5 PERIAPICAL ABSCESS WITHOUT SINUS 07/21/2012 HARRY JOINTER SUBMARINE CABLE, CLAUS J 522.5 PERIAPICAL ABSCESS WITHOUT SINUS 07/21/2012 HARRY JOINTER SUBMARINE CABLE, CLAUS J 522.5 PERIAPICAL ABSCESS WITHOUT SINUS 01/26/2013 KYLE WADDELL MD 312.34 INTERMITTENT EXPLOSIVE DISORDER 01/26/2013 MERT SINGH DO 312.34 INTERMITTENT EXPLOSIVE DISORDER 01/26/2013 JALEESA SERRATO JR 312.34 INTERMITTENT EXPLOSIVE DISORDER 01/26/2013 KYLE WADDELL MD 312.34 INTERMITTENT EXPLOSIVE DISORDER 01/26/2013 JALEESA SERRATO JR 312.34 INTERMITTENT EXPLOSIVE DISORDER 01/26/2013 HARRY YANG, CLAUS J 312.34 INTERMITTENT EXPLOSIVE DISORDER 01/26/2013 HARRY YANG, CLAUS J 312.34 INTERMITTENT EXPLOSIVE DISORDER 01/26/2013 HARRY JONESN, CLAUS J 312.34 INTERMITTENT EXPLOSIVE DISORDER 01/26/2013 HARRY JONESN, CLAUS J 312.34 INTERMITTENT EXPLOSIVE DISORDER 01/26/2013 HARRY JONESN, CLAUS J 312.34 INTERMITTENT EXPLOSIVE DISORDER 01/26/2013 HARRY JONESN, CLAUS J 312.34 INTERMITTENT EXPLOSIVE DISORDER 01/26/2013 HARRY JONESN, CLAUS J 312.34 INTERMITTENT EXPLOSIVE DISORDER 01/26/2013 MAIKEL CASANOVA DDS 312.34 INTERMITTENT EXPLOSIVE DISORDER 01/26/2013 HARRY YANG, CLAUS J 312.34 INTERMITTENT EXPLOSIVE DISORDER 01/26/2013 HARRY YANG, CLAUS J 312.34 INTERMITTENT EXPLOSIVE DISORDER 01/26/2013 HARRY YANG, CLAUS J 312.34 INTERMITTENT EXPLOSIVE DISORDER 02/11/2013 SINGH MERT DAMON V58.32 ENCOUNTER FOR REMOVAL OF SUTURES 02/11/2013 JALEESA SERRATO JR V58.32 ENCOUNTER FOR REMOVAL OF SUTURES 02/11/2013 KYLE WADDELL MD V58.32 ENCOUNTER FOR REMOVAL OF SUTURES 02/11/2013 JALEESA SERRATO JR V58.32 ENCOUNTER FOR REMOVAL OF SUTURES 02/11/2013 CLAUS MCDONALD APRN V58.32 ENCOUNTER FOR REMOVAL OF SUTURES 02/11/2013 CLAUS MCDONALD APRN V58.32 ENCOUNTER FOR REMOVAL OF SUTURES 02/11/2013 CLAUS MCDONALD APRN V58.32 ENCOUNTER FOR REMOVAL OF SUTURES 02/11/2013 CLAUS MCDONALD APRN V58.32 ENCOUNTER FOR REMOVAL OF SUTURES 02/11/2013 CLAUS MCDONALD APRN V58.32 ENCOUNTER FOR REMOVAL OF SUTURES 02/11/2013 CLAUS MCDONALD APRN V58.32 ENCOUNTER FOR REMOVAL OF SUTURES 02/11/2013 CLAUS MCDONALD APRN V58.32 ENCOUNTER FOR REMOVAL OF SUTURES 02/11/2013 MAIKEL CASANOVA DDS V58.32 ENCOUNTER FOR REMOVAL OF SUTURES 02/11/2013 CLAUS MCDONALD APRN V58.32 ENCOUNTER FOR REMOVAL OF SUTURES 02/11/2013 CLAUS MCDONALD APRN V58.32 ENCOUNTER FOR REMOVAL OF SUTURES 02/11/2013 CLAUS MCDONALD APRN V58.32 ENCOUNTER FOR REMOVAL OF SUTURES 08/18/2013 SHAWN GAITAN MD Ot 295.90 SCHIZOPHRENIA NOS-UNSPEC 08/18/2013 SHAWN GAITAN MD Ot 305.1 TOBACCO USE DISORDER 08/18/2013 SHAWN GAITAN MD Ot 315.9 DEVELOPMENT DELAY NOS 08/18/2013 SHAWN GAITAN MD Ot 319 UNSPECIFIED INTELLECTUAL DISABILITIES 08/18/2013 SHAWN GAITAN MD Ot 345.90 EPILEPSY UNSPEC W/O MENTION INTRACTABLE 08/18/2013 SHAWN GAITAN MD Ot 564.09 OTHER CONSTIPATION 08/18/2013 SHAWN GAITAN MD Ot 780.39 OTHER CONVULSIONS 08/18/2013 BRUEGGEMANN MD, SHAWN T Ot 781.0 ABN INVOLUN MOVEMENT NEC 10/31/2015 ALEX DO, TEOFILO K Ot F71 MODERATE INTELLECTUAL DISABILITIES 10/31/2015 ALEX DO, TEOFILO K Ot G40.909 EPILEPSY, UNSP, NOT INTRACTABLE, WITHOUT 10/31/2015 ALEX DO, TEOFILO K Ot K59.00 CONSTIPATION, UNSPECIFIED 10/31/2015 ALEX DO, TEOFILO K Ot R07.81 PLEURODYNIA 11/01/2015 ALEX DO, TEOFILO K Ot F71 MODERATE INTELLECTUAL DISABILITIES 11/01/2015 ALEX DO, TEOFILO K Ot G40.909 EPILEPSY, UNSP, NOT INTRACTABLE, WITHOUT 11/01/2015 ALEX DO, TEOFILO K Ot K59.00 CONSTIPATION, UNSPECIFIED 11/01/2015 ALEX DO, TEOFILO K Ot R07.81 PLEURODYNIA 11/07/2015 ALEX DO, TEOFILO K Ot F71 MODERATE INTELLECTUAL DISABILITIES 11/07/2015 ALEX DO, TEOFILO K Ot G40.909 EPILEPSY, UNSP, NOT INTRACTABLE, WITHOUT 11/07/2015 ALEX DO, TEOFILO K Ot K59.00 CONSTIPATION, UNSPECIFIED 11/07/2015 ALEX DO, TEOFILO K Ot R07.81 PLEURODYNIA 12/07/2016 ARNIE UNDERWOOD, SHAWN Benavides Ot E78.00 PURE HYPERCHOLESTEROLEMIA, UNSPECIFIED 12/07/2016 ARNIE UNDERWOOD, SHAWN T Ot F20.9 SCHIZOPHRENIA, UNSPECIFIED 12/07/2016 ARNEI UNDERWOOD, SHAWN Benavides Ot G40.909 EPILEPSY, UNSP, NOT INTRACTABLE, WITHOUT 12/07/2016 ARNIE UNDERWOOD, SHAWN Benavides Ot K59.09 OTHER CONSTIPATION 12/07/2016 ARNIE UNDERWOOD, SHAWN Benavides Ot R51 HEADACHE 12/07/2016 ARNIE UNDERWOOD, SHAWN Benavides Ot S80.211A ABRASION, RIGHT KNEE, INITIAL ENCOUNTER 12/07/2016 ARNIE UNDERWOOD, SHAWN Benavides Ot S80.212A ABRASION, LEFT KNEE, INITIAL ENCOUNTER 12/07/2016 ARNIE UNDERWOOD, SHAWN Benavides Ot X58.XXXA EXPOSURE TO OTHER SPECIFIED FACTORS, INI 12/09/2016 ARNIE UNDERWOOD, SHAWN Benavides Ot E78.00 PURE HYPERCHOLESTEROLEMIA, UNSPECIFIED 12/09/2016 ARNIE UNDERWOOD, SHAWN Benavides Ot F20.9 SCHIZOPHRENIA, UNSPECIFIED 12/09/2016 ARNIE UNDERWOOD, SHAWN Benavides Ot G40.909 EPILEPSY, UNSP, NOT INTRACTABLE, WITHOUT 12/09/2016 ARNIE UNDERWOOD, SHAWN Benavides Ot K59.09 OTHER CONSTIPATION 12/09/2016 ARNIE UNDERWOOD, SHAWN Benavides Ot R51 HEADACHE 12/09/2016 ARNIE UNDERWOOD, SHAWN Benavides Ot S80.211A ABRASION, RIGHT KNEE, INITIAL ENCOUNTER 12/09/2016 ARNIE UNDERWOOD, SHAWN Benavides Ot S80.212A ABRASION, LEFT KNEE, INITIAL ENCOUNTER 12/09/2016 ARNIE UNDERWOOD, SHAWN Benavides Ot X58.XXXA EXPOSURE TO OTHER SPECIFIED FACTORS, INI 03/16/2017 HUGO LUCIO DO Ot G31.89 OTHER SPECIFIED DEGENERATIVE DISEASES OF 03/16/2017 HUGO LUCIO DO Ot J32.9 CHRONIC SINUSITIS, UNSPECIFIED 03/16/2017 HUGO LUCIO DO Ot R29.6 REPEATED FALLS 03/16/2017 HUGO LUCIO DO Ot R41.82 ALTERED MENTAL STATUS, UNSPECIFIED 03/16/2017 HUGO LUCIO DO Ot R42 DIZZINESS AND GIDDINESS Procedures Code Description [place] [address] CBC 01/08/2012 15318 PSYCH PHARM MGMT 01/16/2012 41000 CBC 02/23/2012 62080 CBC 04/26/2012 90602 CBC 05/07/2012 49706 CBC 05/14/2012 90071 CMP 05/25/2012 41968 LIPID PANEL 05/25/2012 24768 TSH 05/25/2012 18047 CBC 05/25/2012 06935 CBC 05/28/2012 72302 XRAY CHEST 2 VIEW 06/22/2012 16880 CBC 09/06/2012 47689 CBC 09/06/2012 38243 CBC 09/14/2012 67606 CBC 09/20/2012 60006 CBC 09/27/2012 78064 CBC 10/07/2012 39596 CBC 10/12/2012 56319 CBC 10/18/2012 17913 CBC 11/16/2012 30206 CBC 11/22/2012 93724 CBC 11/30/2012 48948 CBC 12/08/2012 77065 CBC 12/13/2012 16214 CBC 12/27/2012 68945 CBC 01/03/2013 90396 CBC 01/11/2013 58049 CBC 01/20/2013 13734 CBC 01/24/2013 77666 CBC 01/29/2013 04559 CBC 02/07/2013 54198 CBC 02/14/2013 97856 CBC 02/21/2013 76131 CBC 02/25/2013 10427 CBC 03/07/2013 50246 CBC 03/21/2013 09714 CBC 03/29/2013 42167 CBC 04/05/2013 47469 CBC 04/26/2013 75267 CBC 05/03/2013 55498 CBC 05/12/2013 99821 CBC 05/17/2013 90255 CBC 06/03/2013 00594 CBC 06/15/2013 47672 CBC 07/07/2013 98687 CBC 07/12/2013 46754 CBC 07/26/2013 96500 CBC 08/08/2013 36410 CBC 08/08/2013 13646 CBC 08/15/2013 15419 CBC 08/29/2013 31294 CBC 09/07/2013 78897 CBC 09/12/2013 38709 CBC 09/19/2013 74995 CBC 09/26/2013 35192 CBC 10/05/2013 78732 CBC 10/11/2013 98225 CBC W/MANUAL DIF (order) 10/24/2013 95033 CBC 10/31/2013 20249 CBC 11/08/2013 84778 CBC 11/18/2013 15629 CBC 11/22/2013 92563 CBC 11/29/2013 24498 CBC 12/07/2013 46008 CBC 12/12/2013 50738 CBC 12/23/2013 29929 CBC 01/02/2014 04811 CBC 01/06/2014 55301 CBC 01/30/2014 46478 CBC 02/07/2014 96368 CBC 02/14/2014 66220 CBC 02/20/2014 53318 CBC 03/08/2014 22021 CBC W/MANUAL DIF (order) 06/15/2014 Results Test Result Range Urine drug screening test - 10/31/15 05:30 Urine acetaminophen detection by screening method NEGATIVE NEGATIVE Urine phencyclidine detection by screening method NEGATIVE NEGATIVE Urine benzodiazepines detection by screening method NEGATIVE NEGATIVE Urine cocaine detection NEGATIVE NEGATIVE Urine amphetamines detection by screening method NEGATIVE NEGATIVE Urine methamphetamine detection by screening method NEGATIVE NEGATIVE Urine cannabinoids detection by screening method POSITIVE NEGATIVE Urine opiates detection by screening method NEGATIVE NEGATIVE Urine barbiturates detection NEGATIVE NEGATIVE Screening urine tricyclic antidepressants detection NEGATIVE NEGATIVE Urine methadone detection by screening method NEGATIVE NEGATIVE Complete blood count (CBC) with automated white blood cell (WBC) differential - 10/31/15 05:35 Blood leukocytes automated count (number/volume) 6.6 10*3/uL 4.3-11.0 Blood erythrocytes automated count (number/volume) 5.08 10*6/uL 4.35-5.85 Venous blood hemoglobin measurement (mass/volume) 13.7 g/dL 13.3-17.7 Blood hematocrit (volume fraction) 40 % 40-54 Automated erythrocyte mean corpuscular volume 79 [foz_us] 80-99 Automated erythrocyte mean corpuscular hemoglobin (mass per erythrocyte) 27 pg 25-34 Automated erythrocyte mean corpuscular hemoglobin concentration measurement ( mass/volume) 34 g/dL 32-36 Automated erythrocyte distribution width ratio 14.9 % 10.0-14.5 Automated blood platelet count (count/volume) 164 10*3/uL 130-400 Automated blood platelet mean volume measurement 9.7 [foz_us] 7.4-10.4 Automated blood neutrophils/100 leukocytes 48 % 42-75 Automated blood lymphocytes/100 leukocytes 36 % 12-44 Blood monocytes/100 leukocytes 13 % 0-12 Automated blood eosinophils/100 leukocytes 3 % 0-10 Automated blood basophils/100 leukocytes 1 % 0-10 Blood neutrophils automated count (number/volume) 3.2 10*3 1.8-7.8 Blood lymphocytes automated count (number/volume) 2.4 10*3 1.0-4.0 Blood monocytes automated count (number/volume) 0.9 10*3 0.0-1.0 Automated eosinophil count 0.2 10*3/uL 0.0-0.3 Automated blood basophil count (count/volume) 0.0 10*3/uL 0.0-0.1 Comprehensive metabolic panel - 10/31/15 05:35 Serum or plasma sodium measurement (moles/volume) 136 mmol/L 135-145 Serum or plasma potassium measurement (moles/volume) 4.1 mmol/L 3.6-5.0 Serum or plasma chloride measurement (moles/volume) 103 mmol/L 98-107 Carbon dioxide 22 mmol/L 21-32 Serum or plasma anion gap determination (moles/volume) 11 mmol/L 5-14 Serum or plasma urea nitrogen measurement (mass/volume) 10 mg/dL 7-18 Serum or plasma creatinine measurement (mass/volume) 0.69 mg/dL 0.60-1.30 Serum or plasma urea nitrogen/creatinine mass ratio 14 NRG Serum or plasma creatinine measurement with calculation of estimated glomerular filtration rate > NRG Serum or plasma glucose measurement (mass/volume) 95 mg/dL 70-105 Serum or plasma calcium measurement (mass/volume) 8.7 mg/dL 8.5-10.1 Serum or plasma total bilirubin measurement (mass/volume) 0.3 mg/dL 0.1-1.0 Serum or plasma alkaline phosphatase measurement (enzymatic activity/volume) 46 U/L 40-136 Serum or plasma aspartate aminotransferase measurement (enzymatic activity/ volume) 13 U/L 5-34 Serum or plasma alanine aminotransferase measurement (enzymatic activity/volume ) 15 U/L 0-55 Serum or plasma protein measurement (mass/volume) 6.2 g/dL 6.4-8.2 Serum or plasma albumin measurement (mass/volume) 4.0 g/dL 3.2-4.5 Serum or plasma amylase measurement (enzymatic activity/volume) - 10/31/15 05: 35 Serum or plasma amylase measurement (enzymatic activity/volume) 25 U /L 25-125 Lipase - 10/31/15 05:35 Lipase 26 U/L 8-78 Serum or plasma ethanol measurement (mass/volume) - 10/31/15 05:35 Serum or plasma ethanol measurement (mass/volume) < mg/dL <10 Valproic acid - 10/31/15 05:35 Valproic acid 69.9 ug/mL 50.0-100.0 Complete urinalysis with reflex to culture - 10/31/15 06:42 Urine color determination YELLOW NRG Urine clarity determination CLEAR NRG Urine pH measurement by test strip 7 5-9 Specific gravity of urine by test strip 1.005 1.016- 1.022 Urine protein assay by test strip, semi-quantitative NEGATIVE NEGATIVE Urine glucose detection by automated test strip NEGATIVE NEGATIVE Erythrocytes detection in urine sediment by light microscopy NEGATIVE NEGATIVE Urine ketones detection by automated test strip NEGATIVE NEGATIVE Urine nitrite detection by test strip NEGATIVE NEGATIVE Urine total bilirubin detection by test strip NEGATIVE NEGATIVE Urine urobilinogen measurement by automated test strip (mass/volume) NORMAL NORMAL Urine leukocyte esterase detection by dipstick NEGATIVE NEGATIVE Automated urine sediment erythrocyte count by microscopy (number/high power field) NONE NRG Automated urine sediment leukocyte count by microscopy (number/high power field ) NONE NRG Bacteria detection in urine sediment by light microscopy NEGATIVE NRG Squamous epithelial cells detection in urine sediment by light microscopy 2-5 NRG Crystals detection in urine sediment by light microscopy NONE NRG Casts detection in urine sediment by light microscopy NONE NRG Mucus detection in urine sediment by light microscopy NEGATIVE NRG Complete urinalysis with reflex to culture NO NRG Complete urinalysis with reflex to culture - 12/07/16 03:22 Urine color determination YELLOW NRG Urine clarity determination SLIGHTLY CLOUDY NRG Urine pH measurement by test strip 7 5-9 Specific gravity of urine by test strip 1.010 1.016- 1.022 Urine protein assay by test strip, semi-quantitative NEGATIVE NEGATIVE Urine glucose detection by automated test strip NEGATIVE NEGATIVE Erythrocytes detection in urine sediment by light microscopy NEGATIVE NEGATIVE Urine ketones detection by automated test strip NEGATIVE NEGATIVE Urine nitrite detection by test strip NEGATIVE NEGATIVE Urine total bilirubin detection by test strip NEGATIVE NEGATIVE Urine urobilinogen measurement by automated test strip (mass/volume) 8 mg/dL NORMAL Urine leukocyte esterase detection by dipstick 1+ NEGATIVE Automated urine sediment erythrocyte count by microscopy (number/high power field) NONE NRG Automated urine sediment leukocyte count by microscopy (number/high power field ) RARE NRG Bacteria detection in urine sediment by light microscopy TRACE NRG Squamous epithelial cells detection in urine sediment by light microscopy RARE NRG Crystals detection in urine sediment by light microscopy PRESENT NRG Casts detection in urine sediment by light microscopy PRESENT NRG Mucus detection in urine sediment by light microscopy SMALL NRG Complete urinalysis with reflex to culture NO NRG Amorphous sediment detection in urine sediment by light microscopy MOD STEPHEN PHOSPHATE NRG Hyaline casts detection in urine sediment by light microscopy 0-2 NRG Complete blood count (CBC) with automated white blood cell (WBC) differential - 12/07/16 03:55 Blood leukocytes automated count (number/volume) 12.5 10*3/uL 4.3-11.0 Blood erythrocytes automated count (number/volume) 5.38 10*6/uL 4.35-5.85 Venous blood hemoglobin measurement (mass/volume) 14.3 g/dL 13.3-17.7 Blood hematocrit (volume fraction) 44 % 40-54 Automated erythrocyte mean corpuscular volume 81 [foz_us] 80-99 Automated erythrocyte mean corpuscular hemoglobin (mass per erythrocyte) 27 pg 25-34 Automated erythrocyte mean corpuscular hemoglobin concentration measurement ( mass/volume) 33 g/dL 32-36 Automated erythrocyte distribution width ratio 15.3 % 10.0-14.5 Automated blood platelet count (count/volume) 215 10*3/uL 130-400 Automated blood platelet mean volume measurement 9.7 [foz_us] 7.4-10.4 Automated blood neutrophils/100 leukocytes 70 % 42-75 Automated blood lymphocytes/100 leukocytes 19 % 12-44 Blood monocytes/100 leukocytes 10 % 0-12 Automated blood eosinophils/100 leukocytes 1 % 0-10 Automated blood basophils/100 leukocytes 0 % 0-10 Blood neutrophils automated count (number/volume) 8.7 10*3 1.8-7.8 Blood lymphocytes automated count (number/volume) 2.4 10*3 1.0-4.0 Blood monocytes automated count (number/volume) 1.3 10*3 0.0-1.0 Automated eosinophil count 0.1 10*3/uL 0.0-0.3 Automated blood basophil count (count/volume) 0.0 10*3/uL 0.0-0.1 Comprehensive metabolic panel - 12/07/16 03:55 Serum or plasma sodium measurement (moles/volume) 144 mmol/L 135-145 Serum or plasma potassium measurement (moles/volume) 4.0 mmol/L 3.6-5.0 Serum or plasma chloride measurement (moles/volume) 104 mmol/L 98-107 Carbon dioxide 29 mmol/L 21-32 Serum or plasma anion gap determination (moles/volume) 11 mmol/L 5-14 Serum or plasma urea nitrogen measurement (mass/volume) 12 mg/dL 7-18 Serum or plasma creatinine measurement (mass/volume) 0.80 mg/dL 0.60-1.30 Serum or plasma urea nitrogen/creatinine mass ratio 15 NRG Serum or plasma creatinine measurement with calculation of estimated glomerular filtration rate > NRG Serum or plasma glucose measurement (mass/volume) 103 mg/dL 70-105 Serum or plasma calcium measurement (mass/volume) 9.6 mg/dL 8.5-10.1 Serum or plasma total bilirubin measurement (mass/volume) 0.3 mg/dL 0.1-1.0 Serum or plasma alkaline phosphatase measurement (enzymatic activity/volume) 62 U/L 40-136 Serum or plasma aspartate aminotransferase measurement (enzymatic activity/ volume) 15 U/L 5-34 Serum or plasma alanine aminotransferase measurement (enzymatic activity/volume ) 12 U/L 0-55 Serum or plasma protein measurement (mass/volume) 7.1 g/dL 6.4-8.2 Serum or plasma albumin measurement (mass/volume) 4.1 g/dL 3.2-4.5 Streptococcus pyogenes antigen detection - 03/05/17 21:07 Streptococcus pyogenes antigen detection NEGATIVE NEGATIVE Influenza virus A and B antigen detection - 03/05/17 21:07 FLU RESULT NEGATIVE FOR INFLUENZA A AND B ANTIGENS BY [facility] Complete blood count (CBC) with automated white blood cell (WBC) differential - 03/05/17 21:07 Blood leukocytes automated count (number/volume) 12.8 10*3/uL 4.3-11.0 Blood erythrocytes automated count (number/volume) 5.34 10*6/uL 4.35-5.85 Venous blood hemoglobin measurement (mass/volume) 13.8 g/dL 13.3-17.7 Blood hematocrit (volume fraction) 42 % 40-54 Automated erythrocyte mean corpuscular volume 79 [foz_us] 80-99 Automated erythrocyte mean corpuscular hemoglobin (mass per erythrocyte) 26 pg 25-34 Automated erythrocyte mean corpuscular hemoglobin concentration measurement ( mass/volume) 33 g/dL 32-36 Automated erythrocyte distribution width ratio 16.0 % 10.0-14.5 Automated blood platelet count (count/volume) 213 10*3/uL 130-400 Automated blood platelet mean volume measurement 9.9 [foz_us] 7.4-10.4 Automated blood neutrophils/100 leukocytes 70 % 42-75 Automated blood lymphocytes/100 leukocytes 18 % 12-44 Blood monocytes/100 leukocytes 12 % 0-12 Automated blood eosinophils/100 leukocytes 0 % 0-10 Automated blood basophils/100 leukocytes 0 % 0-10 Blood neutrophils automated count (number/volume) 8.9 10*3 1.8-7.8 Blood lymphocytes automated count (number/volume) 2.4 10*3 1.0-4.0 Blood monocytes automated count (number/volume) 1.5 10*3 0.0-1.0 Automated eosinophil count 0.0 10*3/uL 0.0-0.3 Automated blood basophil count (count/volume) 0.0 10*3/uL 0.0-0.1 Comprehensive metabolic panel - 03/05/17 21:07 Serum or plasma sodium measurement (moles/volume) 145 mmol/L 135-145 Serum or plasma potassium measurement (moles/volume) 3.8 mmol/L 3.6-5.0 Serum or plasma chloride measurement (moles/volume) 106 mmol/L 98-107 Carbon dioxide 24 mmol/L 21-32 Serum or plasma anion gap determination (moles/volume) 15 mmol/L 5-14 Serum or plasma urea nitrogen measurement (mass/volume) 15 mg/dL 7-18 Serum or plasma creatinine measurement (mass/volume) 0.88 mg/dL 0.60-1.30 Serum or plasma urea nitrogen/creatinine mass ratio 17 NRG Serum or plasma creatinine measurement with calculation of estimated glomerular filtration rate > NRG Serum or plasma glucose measurement (mass/volume) 150 mg/dL 70-105 Serum or plasma calcium measurement (mass/volume) 9.4 mg/dL 8.5-10.1 Serum or plasma total bilirubin measurement (mass/volume) 0.5 mg/dL 0.1-1.0 Serum or plasma alkaline phosphatase measurement (enzymatic activity/volume) 65 U/L 40-136 Serum or plasma aspartate aminotransferase measurement (enzymatic activity/ volume) 22 U/L 5-34 Serum or plasma alanine aminotransferase measurement (enzymatic activity/volume ) 16 U/L 0-55 Serum or plasma protein measurement (mass/volume) 7.1 g/dL 6.4-8.2 Serum or plasma albumin measurement (mass/volume) 3.9 g/dL 3.2-4.5 Bacterial throat culture - 03/05/17 21:07 Bacterial throat culture [facility] NRG Complete urinalysis with reflex to culture - 03/05/17 23:21 Urine color determination BROWN NRG Urine clarity determination CLEAR NRG Urine pH measurement by test strip 7 5-9 Specific gravity of urine by test strip 1.010 1.016- 1.022 Urine protein assay by test strip, semi-quantitative 2+ NEGATIVE Urine glucose detection by automated test strip NEGATIVE NEGATIVE Erythrocytes detection in urine sediment by light microscopy 1+ NEGATIVE Urine ketones detection by automated test strip 1+ NEGATIVE Urine nitrite detection by test strip POSITIVE NEGATIVE Urine total bilirubin detection by test strip 2+ NEGATIVE Urine urobilinogen measurement by automated test strip (mass/volume) 8 mg/dL NORMAL Urine leukocyte esterase detection by dipstick 1+ NEGATIVE Automated urine sediment erythrocyte count by microscopy (number/high power field) [HPF] NRG Automated urine sediment leukocyte count by microscopy (number/high power field ) [HPF] NRG Bacteria detection in urine sediment by light microscopy NEGATIVE NRG Squamous epithelial cells detection in urine sediment by light microscopy 0-2 NRG Crystals detection in urine sediment by light microscopy NONE NRG Casts detection in urine sediment by light microscopy NONE NRG Mucus detection in urine sediment by light microscopy LARGE NRG Complete urinalysis with reflex to culture NO NRG Encounters ACCT No. Visit Date/Time Discharge Status Pt. Type Provider Facility Loc./Unit Complaint [id number] 03/13/2017 08:29:00 03/13/2017 23:59:59 CLS Outpatient HUGO LUCIO DO [facility] RAD ALTERED MENTAL STATUS ;FALLS;DIZZINESS [id number] 03/05/2017 20:36:00 03/06/2017 00:33:00 DIS Emergency VICKI GARCES MD [facility] ER CONFUSION [id number] 12/07/2016 03:20:00 12/07/2016 04:51:00 DIS Emergency SHAWN GAITAN MD [facility] ER CONFUSION [id number] 10/31/2015 05:28:00 10/31/2015 07:30:00 DIS Emergency TEOFILO JOHNSON DO [facility] ER POSSIBLE SEIZURE [id number] 08/17/2013 21:53:00 08/18/2013 00:33:00 DIS Emergency SHAWN GAITAN MD [facility] ER SEIZURE [id number] 02/02/2013 06:37:00 02/02/2013 09:35:00 DIS Emergency [id number] 03/05/2017 21:50:00 Document Registration [id number] 06/13/2014 13:49:00 06/13/2014 23:59:59 CLS Outpatient CLAUS MCDONALD APRN [id number] 03/16/2014 12:55:00 03/16/2014 23:59:59 CLS Outpatient CLAUS MCDONALD APRN [id number] 03/16/2014 12:55:00 03/16/2014 23:59:59 CLS Outpatient CLAUS MCDONALD APRN [id number] 03/10/2014 13:51:00 03/10/2014 23:59:59 CLS Outpatient MAIKEL CASANOVA DDS [id number] 12/15/2013 09:59:00 12/15/2013 23:59:59 CLS Outpatient CLAUS MCDONALD APRN [id number] 12/15/2013 09:59:00 12/15/2013 23:59:59 CLS Outpatient CLAUS MCDONALD APRN [id number] 11/01/2013 11:59:00 11/01/2013 23:59:59 CLS Outpatient CLAUS MCDONALD APRN [id number] 11/01/2013 11:59:00 11/01/2013 23:59:59 CLS Outpatient CLAUS MCDONALD APRN [id number] 09/27/2013 09:01:00 09/27/2013 23:59:59 CLS Outpatient CLAUS MCDONALD APRN [id number] 09/27/2013 09:01:00 09/27/2013 23:59:59 CLS Outpatient CLAUS MCDONALD APRN [id number] 08/25/2013 10:04:00 08/25/2013 23:59:59 CLS Outpatient CLAUS MCDONALD APRN [id number] 04/28/2013 11:00:00 04/28/2013 23:59:59 CLS Outpatient KYLE WADDELL MD [id number] 04/28/2013 11:00:00 04/28/2013 23:59:59 CLS Outpatient JALEESA SERRATO JR [id number] 02/11/2013 09:18:00 02/11/2013 23:59:59 CLS Outpatient MERT SINGH DO [id number] 01/26/2013 10:59:00 01/26/2013 23:59:59 CLS Outpatient JALEESA SERRATO JR [id number] 01/26/2013 10:59:00 01/26/2013 23:59:59 CLS Outpatient KYLE WADDELL MD [id number] 11/02/2012 13:16:00 11/02/2012 23:59:59 CLS Outpatient JOSSE OWENS APRN [id number] 05/24/2012 15:30:00 05/24/2012 23:59:59 CLS Outpatient ROMAN JOSSE YANG [id number] 02/23/2012 13:36:00 02/23/2012 23:59:59 CLS Outpatient SHEA ZAMUDIO DO [id number] 01/27/2012 10:05:00 01/27/2012 23:59:59 CLS Outpatient PALAK BARON DDS [id number] 12/23/2011 13:13:00 12/23/2011 23:59:59 CLS Outpatient SHEA ZAMUDIO DO [id number] 09/08/2012 12:28:00 Document Registration [id number] 07/23/2012 09:58:00 Document Registration [id number] 07/22/2012 16:08:00 Document Registration [id number] 06/22/2012 13:57:00 Document Registration [id number] 06/22/2012 13:57:00 Document Registration [id number] 05/24/2012 15:30:00 Document Registration
[2017-03-25] MEDS ORDERED: NS IV 1000 ML 1,000 ML IV ONE ×2 (11:27→12:00)
[2017-03-25] MEDS ORDERED: RT-ALBUTEROL/IPRATROPIUM 3 ML (DUONEB) VIAL INH ONE (11:30)
[2017-03-25 11:38] LABS: BASOPHILS # (AUTO) 0.1 10^3/uL (0.0-0.1); BASOPHILS % (AUTO) 1 % (0-10); EOSINOPHILS % (AUTO) 0 % (0-10); HEMATOCRIT 43 % (40-54); HEMOGLOBIN 13.6 G/DL (13.3-17.7); LYMPHOCYTES # (AUTO) 2.1 X 10^3 (1.0-4.0); LYMPHOCYTES % (AUTO) 16 % (12-44); MEAN CORPUSCULAR HEMOGLOBIN 26 PG (25-34); MEAN CORPUSCULAR HGB CONC 32 G/DL (32-36); MEAN CORPUSCULAR VOLUME 81 FL (80-99); MEAN PLATELET VOLUME 10.5 FL (7.4-10.4); MONOCYTES # (AUTO) 1.1 X 10^3 (0.0-1.0); MONOCYTES % (AUTO) 8 % (0-12); NEUTROPHILS # (AUTO) 9.9 X 10^3 (1.8-7.8); NEUTROPHILS % (AUTO) 75 % (42-75); PLATELET COUNT 259 10^3/uL (130-400); RED BLOOD COUNT 5.27 10^6/uL (4.35-5.85); RED CELL DISTRIBUTION WIDTH 19.2 % (10.0-14.5); WHITE BLOOD COUNT 13.1 10^3/uL (4.3-11.0)
[2017-03-25 11:43] LABS: INR 1.2 (0.8-1.4); PROTHROMBIN TIME PATIENT 14.9 SEC (12.2-14.7)
[2017-03-25 11:46] LABS: FIBRIN DEGRADATION PRODUCTS 1.58 UG/ML (0.00-0.49)
[2017-03-25 11:53] LABS: ALANINE AMINOTRANSFERASE 29 U/L (0-55); ALBUMIN 3.6 GM/DL (3.2-4.5); ALKALINE PHOSPHATASE 87 U/L (40-136); BILIRUBIN,TOTAL 0.6 MG/DL (0.1-1.0); BUN/CREATININE RATIO 29; CALCIUM 8.8 MG/DL (8.5-10.1); CARBON DIOXIDE 33 MMOL/L (21-32); CHLORIDE 104 MMOL/L (98-107); CREATINE KINASE 638 U/L (30-200); CREATININE SERUM 0.76 MG/DL (0.60-1.30); GFR ESTIMATED > 60; GLUCOSE 102 MG/DL (70-105); MAGNESIUM 2.8 MG/DL (1.8-2.4); POTASSIUM 4.3 MMOL/L (3.6-5.0); SODIUM 149 MMOL/L (135-145)
[2017-03-25 11:58] LABS: BAND NEUTROPHILS 8 %; BASOPHILS % (MANUAL) 0 %; EOSINOPHILS % (MANUAL) 0 %; LYMPHOCYTES % (MANUAL) 22 %; METAMYELOCYTES % 2 %; MONOCYTES % (MANUAL) 6 %; NEUTROPHILS % (MANUAL) 54 %; NUCLEATED RED BLOOD CELLS 4; REACTIVE LYMPHOCYTES 8 %
[2017-03-25 11:59] LABS: ELLIPT/OVALOCYTES SLIGHT; POIKILOCYTOSIS MODERATE; ROULEAUX MOD; SMUDGE CELLS MOD; STOMATOCYTES SLIGHT; TOXIC GRANULATION/VACUOLAZATIO 2+
[2017-03-25] MEDS ORDERED: IOHEXOL 350 MG/ML 150 ML (OMNIPAQUE 350) VIAL IV ONE (12:00)
[2017-03-25] MEDS ORDERED: NS 100 ML (IVPB) BAG IV ONE (12:00)
[2017-03-25] MEDS ORDERED: NS IV 500 ML 400 ML IV ONE (12:00)
[2017-03-25 12:15] LABS: CREATINE KINASE MB 4.7 NG/ML (<6.6); MYOGLOBIN SERUM 255.2 NG/ML (10.0-92.0); TSH (THYROID ANALYZER) 0.81 UIU/ML (0.35-4.94)
--- NOTE | 2017-03-25 12:19 | Diagnostic Imaging Report ---
INDICATION: Hypoxemia. EXAMINATION: Portable chest at 12:06 PM. FINDINGS: There is a faint reticular nodular infiltrate in the lungs. The heart size and pulmonary vascularity are normal. There are no effusions or pneumothoraces. IMPRESSION: Diffuse pulmonary infiltrate in the lungs, new since 12/07/2016. The differential considerations would include interstitial pneumonia. Dictated by: Dictated on workstation # [id number]
[2017-03-25] MEDS ORDERED: cefTRIAXone 1 GM (ROCEPHIN) VIAL IV STA (13:06)
--- NOTE | 2017-03-25 13:18 | Diagnostic Imaging Report ---
PROCEDURE: CT head, face, and cervical spine without contrast. TECHNIQUE: Multiple contiguous axial images were obtained through the head, neck, and facial bones without the use of intravenous contrast. Sagittal and coronal reformations through the cervical spine and facial bones were also performed. INDICATION: Fall with head and facial injury. CT BRAIN: Comparison is made with prior head CT from 12/07/2016. The ventricles and sulci are stable in appearance. Moderate periventricular hypodensity is noted consistent with chronic microvascular ischemia. No sulcal effacement, midline shift, or hemorrhage is detected. IMPRESSION: Chronic changes. No acute intracranial process is detected. CT CERVICAL SPINE: Curvature and alignment of the cervical spine is normal. There is multilevel degenerative disc disease. There are bridging anterior osteophytes at the C5-6 level. There is an abnormal lucency extending through the superior endplate of the C7 vertebral body, with involvement of the anterior osteophyte consistent with a fracture. This was not appreciated on prior CT from December 2016. No compression of the vertebral body is seen. There is no retropulsion of fracture fragments. The odontoid is intact. There is some thickening of the prevertebral tissues at the level of the fracture at C7. IMPRESSION: Findings consistent with a fracture involving the superior endplate of the C7 vertebral body. No compression or retropulsion is seen. CT MAXILLOFACIAL: The mandible is intact. Zygomatic arches appear intact. Maxillary sinus loyd, nasal bones, and orbital loyd appear intact. The sinuses are clear. No air-fluid levels are seen. IMPRESSION: No facial bone fracture is identified. Dictated by: Dictated on workstation # [id number]
--- NOTE | 2017-03-25 13:21 | Diagnostic Imaging Report ---
PROCEDURE: CT angiography of the chest with contrast. TECHNIQUE: Multiple contiguous axial images were obtained through the chest after uneventful bolus administration of intravenous contrast. Reconstructed CTA MIP acquisitions were also performed. DATE: March 25, 2017. COMPARISON: Chest radiographs March 25, 2017. CT chest, abdomen and pelvis October 31, 2015. INDICATION: 47-year-old male, low oxygen saturations. Fall. FINDINGS: There are multifocal areas of tree-in-bud nodularity and patchy areas of multifocal alveolar consolidation. There is no pneumothorax. There is no pleural effusion. There is a small amount of dependent material in the right mainstem bronchus. The central airways are patent. There is no identified large central pulmonary embolus. There is nondiagnostic assessment for subsegmental and segmental pulmonary emboli given the timing of the contrast bolus. The main pulmonary artery is within normal limits in diameter. The heart is not enlarged. There is no pericardial effusion. There is direct origin of the left vertebral artery off the aortic arch. There is a right hilar lymph node on axial image 46 which measures 13 mm in short axis. There are subcentimeter short axis right paratracheal lymph nodes on axial image 29 and adjacent sequential images measuring up to 9 mm in short axis. There are subcentimeter short axis AP window lymph nodes. There is a small amount of fluid attenuation in the esophagus without CT apparent wall thickening of the esophagus. There is high attenuation in the left renal collecting system which potentially could relate to timing of the contrast bolus. Nonobstructing renal stones would be considered. Additional very limited evaluation of the visualized portions of the upper abdomen is unremarkable. There is no identified acute bony abnormality. IMPRESSION: CT CHEST. 1. Multifocal tree-in-bud nodularity and patchy areas of alveolar consolidation in the lungs. An infectious bronchiolitis and multifocal pneumonia would be the favored differential diagnostic consideration. Atypical infectious etiologies are considered in the differential diagnosis. Other processes which spread via endobronchial means including aspiration would be the primary differential diagnostic considerations. 2. Abnormally enlarged right hilar and additional prominent mediastinal lymph nodes which likely relate to the above process. 3. Small amount of fluid attenuation within the esophagus without CT apparent esophageal wall thickening. 4. High attenuation material within the left renal collecting system which is partially visualized. This may potentially reflect timing of the contrast bolus. These would be somewhat unusual in shape for renal stones which are the differential diagnostic consideration. 5. No identified large central pulmonary embolus. Nondiagnostic assessment for segmental and subsegmental pulmonary emboli. Dictated by: Dictated on workstation # [id number]
[2017-03-25 15:00] VITALS: BP 130/85
[2017-03-25] MEDS ORDERED: ONDANSETRON 4 MG/2 ML (SDV) Z0FRAN IV PRN (15:15)
[2017-03-25] MEDS ORDERED: ACETAMINOPHEN 500 MG TAB (TYLENOL) PO PRN (15:15)
[2017-03-25] MEDS ORDERED: PIPERACILLIN/TAZOBACTAM 4.5 GM/NS 100 ML IV NR ×2 (15:15)
[2017-03-25] MEDS ORDERED: LACT10SO PO (15:24)
[2017-03-25] MEDS ORDERED: DOCU100C37 PO (15:35)
[2017-03-25] MEDS ORDERED: OMG1KC PO (15:35)
[2017-03-25] MEDS ORDERED: HALO2TAB PO (15:35)
[2017-03-25] MEDS ORDERED: QUET200T57 PO (15:35)
[2017-03-25] MEDS ORDERED: LORA10TA7 PO (15:35)
[2017-03-25] MEDS ORDERED: DIVA500T15 PO (15:35)
[2017-03-25] MEDS ORDERED: ATOR20TA66 PO (15:35)
[2017-03-25] MEDS ORDERED: OXYB5TAB9 PO (15:35)
[2017-03-25] MEDS ORDERED: CLON2TAB3 PO ×2 (15:35)
[2017-03-25] MEDS ORDERED: CLOZ100T7 PO ×2 (15:35)
[2017-03-25] MEDS ORDERED: VORT10TA PO (15:35)
[2017-03-25] MEDS ORDERED: METO-387 PO (15:35)
[2017-03-25] MEDS ORDERED: FOLI1TAB24 PO (15:35)
[2017-03-25] MEDS ORDERED: POLY17PO23 PO (15:35)
[2017-03-25] MEDS ORDERED: LEVE500T6 PO (15:35)
[2017-03-25] MEDS: NS IV 1000 ML 1,000 ML IV SCH ×3 (15:37→23:38)
[2017-03-25 15:50] VITALS: BP 144/108
[2017-03-25 16:00] VITALS: BP 108/62
[2017-03-25] MEDS ORDERED: RT-ALBUTEROL/IPRATROPIUM 3 ML (DUONEB) VIAL INH PRN (16:15)
[2017-03-25] MEDS: RT-ALBUTEROL/IPRATROPIUM 3 ML (DUONEB) VIAL INH SCH ×2 (18:43→22:52)
[2017-03-25 19:44] VITALS: BP 122/77
[2017-03-25] MEDS ORDERED: CLONAZEPAM 3 MG PO SCH (21:00)
[2017-03-25] MEDS: LEVETIRACETAM 500 MG (KEPPRA) TAB PO SCH (21:54)
[2017-03-25] MEDS: PIPERACILLIN/TAZOBACTAM 4.5 GM/NS 100 ML IVPB IV SCH ×2 (21:54)
[2017-03-25] MEDS: ATORVASTATIN 20 MG (LIPITOR) TABLET PO SCH (21:55)
[2017-03-25] MEDS: QUEtiapine 200 MG (SEROquel) TAB IMMEDIATE RELEASE PO SCH (21:55)
[2017-03-25] MEDS: clonazePAM 1 MG (KlonoPIN) TAB PO SCH (21:55)
[2017-03-25] MEDS: OXYBUTYNIN (DITROPAN) 5 MG TAB PO SCH (21:55)
[2017-03-25] MEDS: guaiFENesin (MUCINEX) 600 MG TAB PO SCH (21:55)
[2017-03-25] MEDS: FAMOTIDINE 20MG/2ML IV (PEPCID) IV SCH (21:56)
[2017-03-26 00:05] VITALS: BP 121/80
[2017-03-26] MEDS: RT-ALBUTEROL/IPRATROPIUM 3 ML (DUONEB) VIAL INH SCH ×7 (02:34→22:13)
[2017-03-26 04:03] VITALS: BP 113/70
[2017-03-26] MEDS: NS IV 1000 ML 1,000 ML IV SCH ×3 (05:18→10:57)
[2017-03-26] MEDS: PIPERACILLIN/TAZOBACTAM 4.5 GM/NS 100 ML IVPB IV SCH ×4 (05:21→12:25)
[2017-03-26 06:04] LABS: BASOPHILS % (AUTO) 0 % (0-10); EOSINOPHILS % (AUTO) 0 % (0-10); HEMATOCRIT 39 % (40-54); HEMOGLOBIN 12.4 G/DL (13.3-17.7); LYMPHOCYTES # (AUTO) 1.5 X 10^3 (1.0-4.0); LYMPHOCYTES % (AUTO) 15 % (12-44); MEAN CORPUSCULAR HEMOGLOBIN 26 PG (25-34); MEAN CORPUSCULAR HGB CONC 32 G/DL (32-36); MEAN CORPUSCULAR VOLUME 82 FL (80-99); MEAN PLATELET VOLUME 10.3 FL (7.4-10.4); MONOCYTES # (AUTO) 0.5 X 10^3 (0.0-1.0); MONOCYTES % (AUTO) 5 % (0-12); NEUTROPHILS # (AUTO) 7.6 X 10^3 (1.8-7.8); NEUTROPHILS % (AUTO) 79 % (42-75); PLATELET COUNT 247 10^3/uL (130-400); RED BLOOD COUNT 4.78 10^6/uL (4.35-5.85); RED CELL DISTRIBUTION WIDTH 18.8 % (10.0-14.5); WHITE BLOOD COUNT 9.6 10^3/uL (4.3-11.0)
[2017-03-26 06:31] LABS: ALANINE AMINOTRANSFERASE 22 U/L (0-55); ALBUMIN 2.9 GM/DL (3.2-4.5); ALKALINE PHOSPHATASE 72 U/L (40-136); BILIRUBIN,TOTAL 0.4 MG/DL (0.1-1.0); BUN/CREATININE RATIO 30; CALCIUM 7.7 MG/DL (8.5-10.1); CARBON DIOXIDE 28 MMOL/L (21-32); CHLORIDE 111 MMOL/L (98-107); CREATININE SERUM 0.66 MG/DL (0.60-1.30); GFR ESTIMATED > 60; GLUCOSE 87 MG/DL (70-105); POTASSIUM 4.5 MMOL/L (3.6-5.0); SODIUM 151 MMOL/L (135-145); TOTAL PROTEIN 5.7 GM/DL (6.4-8.2)
[2017-03-26] MEDS: OXYBUTYNIN (DITROPAN) 5 MG TAB PO SCH ×2 (07:37→21:48)
[2017-03-26] MEDS: FAMOTIDINE 20MG/2ML IV (PEPCID) IV SCH ×2 (07:37→21:48)
[2017-03-26] MEDS: guaiFENesin (MUCINEX) 600 MG TAB PO SCH ×2 (07:37→21:48)
[2017-03-26] MEDS: LEVETIRACETAM 500 MG (KEPPRA) TAB PO SCH ×2 (07:37→21:49)
[2017-03-26 08:00] VITALS: BP 122/80
--- NOTE | 2017-03-26 09:08 | Diagnostic Imaging Report ---
INDICATION: Pneumonia Study compared to 03/25. FINDINGS: 5 lobed infiltrate showed no interval change. No effusion or pneumothorax. IMPRESSION: Unchanged bilateral infiltrates. Dictated by: Dictated on workstation # [id number]
[2017-03-26 12:00] VITALS: BP 125/89
--- NOTE | 2017-03-26 12:06 | Speech Therapy Progress Note ---
Therapy Progress Note VISIT ONLY; 11:50-1200PM CHUCKING LATHE OPERATOR ATTEMPTED TO SEE PATIENT FOR BEDSIDE SWALLOW EXAMINATION. THE PATIENT WAS TOO LETHARGIC TO PARTICIPATE, EVEN WITH STERNAL RUB & REPOSITIONING. THIS CHUCKING LATHE OPERATOR LEFT PHONE NUMBER WITH THE NURSE, REQUESTING A CALL IF THE PATIENT SHOULD WAKE- UP ENOUGH TO COMPLETE THE EXAMINATION. CHUYITA CEJA Mar 26, 2017 12:06
--- NOTE | 2017-03-26 12:22 | Occ Therapy Progress Note ---
Therapy Progress Note 1132 to 1142 Unable to wake patient to complete OT evaluation. Nursing reported that he has weak UEs and nurse aide said that he has adequate strength and ROM to try to get out of bed. Multiple attempts to wake patient, with no success. Phone call message left for caregiver Michelle for information on prior functional status. Will follow. visit MABEL STALLINGS OT Mar 26, 2017 12:22
--- NOTE | 2017-03-26 12:23 | History & Physical-Hospitalist ---
HPI History of Present Illness: HPI/Chief Complaint CC: Pneumonia HPI: This is a severe MR patient of Dr Marroquin who presents to ER w/wheezing after completing Bactrim for URI. Apparently he had worsened and was admitted to [facility] but upon further evaluation he was a Dr Marroquin patient so I have taken him on the Hospitalist service. no hx obtainable. Dr Lam was consulted. Exam Limitations: clinical condition Date Seen 03/26/17 Time Seen by Provider: 11:00 Attending Physician Urvashi Montero MD PCP Kellie Helms DO Referring Physician Date of Admission Mar 25, 2017 at 14:30 Home Medications & Allergies Home Medications Reviewed patient Home Medication Reconciliation Form Allergies Allergies Coded Allergies fluoxetine (Verified Allergy, Unknown, 03/05/17) Past Nuuevxv-Lnnznk-Pympqq Hx Patient Social History Marrital Status: single Employed/Student: unemployed Alcohol Use: Denies Use Recreational Drug Use: No Smoking Status: Current Everyday Smoker Type Used: Cigarettes 2nd Hand Smoke Exposure: No Physical Abuse Screen: No Sexual Abuse: No Recent Foreign Travel: No Contact w/other who traveled: No Recent Hopitalizations: No Recent Infectious Disease Expo: No Immunizations Up To Date Tetanus Booster (TDap): More than 5yrs Date of Influenza Vaccine: Dec 06, 2016 Seasonal Allergies Seasonal Allergies: No Surgeries No (UNKNOWN) Respiratory Yes (UNKNOWN) Pneumonia Cardiovascular Yes High Cholesterol, Hypertension Neurological Yes Seizure Disorder Genitourinary No (UNKNOWN) Gastrointestinal Yes Gastroesophageal Reflux, Chronic Constipation Musculoskeletal No (UNKNOWN) Endocrine History of Endocrine Disorders: No (UNKNOWN - PT IS MR) HEENT History of HEENT Disorders: No (UNKNOWN) Cancer No (UNKNOWN) Psychosocial History of Psychiatric Problem: Yes (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) Behavioral Health Disorders: Schizophrenia, Violent Behavior, Depression Integumentary History of Skin or Integumenta: Yes Skin/Integumentary Disorders: Psoriasis Blood Transfusions History of Blood Disorders: No (UNKNOWN) Family Medical History Family Hx: Patient reports no known family medical history. Review of Systems ROS-Unable to Obtain: pt Constitutional: see HPI Physical Exam Physical Exam Vital Signs Vital Sign - Last 12Hours 03/25/17 03/25/17 11:12 11:15 Temp 98.0 Pulse 112 Resp 24 B/P (MAP) 144/108 (120) Pulse Ox 96 O2 Delivery OxyMask O2 Flow Rate 8.00 Capillary Refill : Less Than 3 SecondsLess Than 3 Seconds General Appearance: No Apparent Distress, WD/WN, Chronically ill, Other ( unresponsive) Eyes: Bilateral Eye Normal Inspection, Bilateral Eye PERRL Respiratory: Lungs Clear, No Respiratory Distress, Crackles, Decreased Breath Sounds, Rales, Wheezing Cardiovascular: Regular Rate, Rhythm, No Edema, No Gallop, No JVD, No Murmur, Normal Peripheral Pulses Gastrointestinal: Normal Bowel Sounds, No Organomegaly, No Pulsatile Mass, Soft Back: Normal Inspection, No CVA Tenderness, No Vertebral Tenderness Extremity: Normal Capillary Refill, Normal Inspection, Normal Range of Motion, Non Tender, No Calf Tenderness, No Pedal Edema Neurologic/Psychiatric: Other (unresponsive) Skin: Normal Color, Warm/Dry Lymphatic: No Adenopathy Results Results/Procedures Lab Laboratory Tests 03/25/17 11:17 03/26/17 05:20 Assessment/Plan Admission Diagnosis Assessment: Bilateral pneumonia Severe MR Chronic debility Mental illness with aggression Assessment and Plan Plan: Consult Dr Carole Bhatia O2 Nebs Poor prognosis Needs end of life care Clinical Quality Measures DVT/VTE Risk/Contraindication: Risk Factor Score Per Nursin RFS Level Per Nursing on Admit: 4+=Very High ELIZA HER DO Mar 26, 2017 12:23
--- NOTE | 2017-03-26 13:08 | Pulmonary Consultation ---
History of Present Illness History of Present Illness Date of Consultation 03/26/17 13:04 Time Seen by Provider: 13:04 Date of Admission History of Present Illness 47yo with hx of severe MR presented to ED secondary to worsening SOB and wheezing. Pt was diagnosed with pneumonia and admitted to 4th floor. I am consulted for pulmonary management. Unable to obtain ROS secondary to patients lethargy and hx of MR. Allergies and Home Medications Allergies Coded Allergies: fluoxetine (Verified Allergy, Unknown, 03/05/17) Home Medications Atorvastatin Calcium 20 Mg Tablet, 20 MG PO HS, (Reported) Benztropine Mesylate 1 Mg Tablet, 1 MG PO TID, (Reported) Clonazepam 2 Mg Tablet, 1 MG PO 1500, (Reported) Clonazepam 2 Mg Tablet, 3 MG PO HS, (Reported) Clozapine 100 Mg Tablet, 300 MG PO BID, (Reported) Clozapine 100 Mg Tablet, 200 MG PO 1500, (Reported) Divalproex Sodium 500 Mg Tab.er.24h, 2,000 MG PO DAILY, (Reported) Docusate Sodium 100 Mg Capsule, 100 MG PO BID, (Reported) Folic Acid 1 Mg Tablet, 0.5 MG PO DAILY, (Reported) Haloperidol 2 Mg Tablet, 2 MG PO DAILY, (Reported) Lactulose 10 Gm/15 Ml Solution, 30 ML PO BID, (Reported) Levetiracetam 500 Mg Tablet, 500 MG PO BID, (Reported) Loratadine 10 Mg Tablet, 10 MG PO DAILY, (Reported) Metoprolol Succinate 25 Mg Tab.er.24h, 25 MG PO DAILY, (Reported) [place] 3 Polyunsat Fatty Acids 1,000 Mg Cap, 1,000 MG PO BIDAC, (Reported) Oxybutynin Chloride 5 Mg Tablet, 5 MG PO BID, (Reported) Pantoprazole Sodium 40 Mg Tablet.dr, 40 MG PO DAILY, (Reported) Polyethylene Glycol 3350 17 Gm Powd.pack, 17 GM PO DAILY, (Reported) Quetiapine Fumarate 200 Mg Tablet, 200 MG PO HS, (Reported) Vortioxetine Hydrobromide 10 Mg Tablet, 10 MG PO DAILY, (Reported) Past Bzjmdbd-Rljyus-Exwpaa Hx Patient Social History Alcohol Use: Denies Use Recreational Drug Use: No Smoking Status: Current Everyday Smoker Type Used: Cigarettes 2nd Hand Smoke Exposure: No Recent Foreign Travel: No Contact w/Someone Who Travel: No Recent Infectious Disease Expo: No Recent Hopitalizations: No Physical Abuse: No Sexual Abuse: No Immunizations Up To Date Tetanus Booster (TDap): More than 5yrs Date of Influenza Vaccine: Dec 06, 2016 Seasonal Allergies Seasonal Allergies: No Surgeries History of Surgeries: No (UNKNOWN) Respiratory History of Respiratory Disorde: Yes (UNKNOWN) Respiratory Disorders: Pneumonia Cardiovascular History of Cardiac Disorders: Yes Cardiac Disorders: High Cholesterol, Hypertension Neurological History of Neurological Disord: Yes Neurological Disorders: Seizure Disorder Genitourinary History of Genitourinary Disor: No (UNKNOWN) Gastrointestinal History of Gastrointestinal Di: Yes Gastrointestinal Disorders: Gastroesophageal Reflux, Chronic Constipation Musculoskeletal History of Musculoskeletal Dis: No (UNKNOWN) Endocrine History of Endocrine Disorders: No (UNKNOWN - PT IS MR) HEENT History of HEENT Disorders: No (UNKNOWN) Cancer History of Cancer: No (UNKNOWN) Psychosocial History of Psychiatric Problem: Yes (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) Behavioral Health Disorders: Schizophrenia, Violent Behavior, Depression Suicide Risk Score: 0 Integumentary History of Skin or Integumenta: Yes Skin/Integumentary Disorders: Psoriasis Blood Transfusions History of Blood Disorders: No (UNKNOWN) Family Medical History Family Medial History: Patient reports no known family medical history. Review of Systems Time Seen by Provider: 13:48 Exam Exam Vital Signs Date Time Temp Pulse Resp B/P (MAP) Pulse Ox O2 Delivery O2 Flow Rate FiO2 03/26/17 12:00 97.0 104 18 125/89 (101) 98 OxyMask 6.00 03/26/17 10:13 91 OxyMask 5.00 03/26/17 09:00 Simple Mask 6.00 03/26/17 08:00 99.5 111 20 122/80 (94) 94 OxyMask 6.00 03/26/17 08:00 99.5 111 20 94 03/26/17 07:00 110 03/26/17 06:24 90 OxyMask 5.00 03/26/17 04:03 98.4 105 21 113/70 (84) 96 OxyMask 6.00 03/26/17 02:34 92 OxyMask 6.00 03/26/17 01:00 106 03/26/17 00:05 98.3 106 20 121/80 (94) 94 OxyMask 5.00 03/25/17 22:52 90 OxyMask 5.00 03/25/17 21:00 96 OxyMask 5.00 03/25/17 19:44 98.8 104 22 122/77 (92) 93 OxyMask 03/25/17 19:00 103 03/25/17 18:43 95 OxyMask 5.00 03/25/17 17:05 103 03/25/17 16:00 98.0 101 24 108/62 (77) 94 OxyMask 03/25/17 15:50 102 93 03/25/17 15:50 93 OxyMask 5.00 03/25/17 15:00 98.6 107 20 130/85 (100) 94 OxyMask 03/25/17 15:00 94 OxyMask 5.00 03/25/17 14:12 105 20 98 I & O 03/26/17 07:00 Intake Total 1225 ml Balance 1225 ml General Appearance: No Apparent Distress, WD/WN, Chronically ill, Other ( unresponsive) Respiratory: No Respiratory Distress, Crackles, Decreased Breath Sounds, Rales , Rhonci, Wheezing Cardiovascular: Regular Rate, Rhythm, No Edema, No Gallop, No JVD, No Murmur, Normal Peripheral Pulses Capillary Refill: Less Than 3 Seconds Extremity: Normal Capillary Refill, Normal Inspection, Normal Range of Motion, Non Tender, No Calf Tenderness, No Pedal Edema Neurologic/Psychiatric: Other (unresponsive) Skin: Normal Color, Warm/Dry Lymphatic: No Adenopathy Results Lab Laboratory Tests 03/25/17 11:17 03/26/17 05:20 Assessment/Plan Assessment/Plan -Acute bilateral pneumonia with hypoxemia -Continue zofran -anderson culture -Urine strep and legionella ag -IVF Hypernatremia -change IVF to D5W Hx of severe MR Pt has hx of severe MR and is lethargic. He has very coarse breath sounds. I expect pt will probably get worse. I agree with Dr. Limon pt has overall poor prognosis and DNR or hospice care should be strongly considered. 255 Clinical Quality Measures DVT/VTE Risk/Contraindication: Risk Factor Score Per Nursin RFS Level Per Nursing on Admit: 4+=Very High JESSICA LEÓN DO Mar 26, 2017 13:08
[2017-03-26] MEDS: D5W 1000 ML IV SOLUTION 1,000 ML IV SCH (13:37)
[2017-03-26] MEDS: cloZAPine 100 MG (CLOZARIL) TAB PO SCH (13:46)
[2017-03-26] MEDS ORDERED: NON-FORMULARY MEDICATION 1 EA EA (Clonazepam 1 MG) PO SCH (15:00)
[2017-03-26] MEDS ORDERED: clonazePAM 1 MG (KlonoPIN) TAB PO SCH (15:00)
[2017-03-26 16:11] VITALS: BP 133/88
[2017-03-26] MEDS: QUEtiapine 200 MG (SEROquel) TAB IMMEDIATE RELEASE PO SCH (21:48)
[2017-03-26] MEDS: ATORVASTATIN 20 MG (LIPITOR) TABLET PO SCH (21:48)
[2017-03-26] MEDS: PIPERACILLIN/TAZOBACTAM 4.5 GM/D5W 100 ML IVPB IV SCH ×2 (21:48)
[2017-03-26] MEDS: clonazePAM 1 MG (KlonoPIN) TAB PO SCH (21:48)
[2017-03-26 23:50] VITALS: BP 103/62
[2017-03-27] VITALS (24 sets, daily range): BP systolic 93–125; BP diastolic 62–100
[2017-03-27] MEDS: D5W 1000 ML IV SOLUTION 1,000 ML IV SCH ×3 (00:44→16:21)
[2017-03-27] MEDS: RT-ALBUTEROL/IPRATROPIUM 3 ML (DUONEB) VIAL INH SCH ×6 (02:32→22:22)
[2017-03-27] MEDS: PIPERACILLIN/TAZOBACTAM 4.5 GM/D5W 100 ML IVPB IV SCH ×6 (04:56→21:33)
--- NOTE | 2017-03-27 07:16 | Pulmonary Progress Note ---
Subjective Time Seen by Provider: 07:15 Subjective/Events-last exam Pt is unresponsive to stimuli. Exam Exam Vital Signs Date Time Temp Pulse Resp B/P (MAP) Pulse Ox O2 Delivery O2 Flow Rate FiO2 03/27/17 04:00 98.0 96 22 121/75 (90) 93 OxyMask 6.00 03/27/17 02:33 94 OxyMask 6.00 03/26/17 23:50 97.5 95 20 103/62 (76) 96 OxyMask 6.00 03/26/17 22:13 93 OxyMask 6.00 03/26/17 21:00 OxyMask 6.00 03/26/17 18:38 95 OxyMask 5.00 03/26/17 16:11 98.1 106 22 133/88 (103) 95 OxyMask 6.00 03/26/17 14:18 92 OxyMask 5.00 03/26/17 12:00 97.0 104 18 125/89 (101) 98 OxyMask 6.00 03/26/17 10:13 91 OxyMask 5.00 03/26/17 09:00 Simple Mask 6.00 03/26/17 08:00 99.5 111 20 122/80 (94) 94 OxyMask 6.00 03/26/17 08:00 99.5 111 20 94 I & O 03/27/17 06:59 Intake Total 1280 ml Balance 1280 ml General Appearance: No Apparent Distress, WD/WN, Chronically ill, Moderate Distress, Other (unresponsive) Respiratory: Accessory Muscle Use, Crackles, Decreased Breath Sounds, Rales, Rhonci, Wheezing Cardiovascular: Regular Rate, Rhythm, No Edema, No Gallop, No JVD, No Murmur, Normal Peripheral Pulses Capillary Refill: Less Than 3 Seconds Extremity: Normal Capillary Refill, Normal Inspection, Normal Range of Motion, Non Tender, No Calf Tenderness, No Pedal Edema Neurologic/Psychiatric: Other (unresponsive) Skin: Normal Color, Warm/Dry Lymphatic: No Adenopathy Results Lab Laboratory Tests 03/25/17 11:17 03/26/17 05:20 Assessment/Plan Assessment/Plan -Acute bilateral pneumonia with hypoxemia -Continue zosyn -anderson culture pending -Urine strep and legionella ag -IVF -Check ABG Acute respiratory failure Hypernatremia -IVF Hx of severe MR Unresponsive -D/C sedating meds CXR shows extensive bilateral infiltrates. Pt is requiring highflow oxygen Pt has hx of severe MR and is now unresponsive. He has very coarse breath sounds. I expect pt will probably continue to get worse. I agree with Dr. Limon pt has overall very poor prognosis and DNR or hospice care should be strongly considered. 60 min ICU time spent with patient, and medical team. I am transferring pt to ICU and he will probably need to be intubated and ventilated. Clinical Quality Measures DVT/VTE Risk/Contraindication: Risk Factor Score Per Nursin RFS Level Per Nursing on Admit: 4+=Very High JESSICA LEÓN DO Mar 27, 2017 07:16
[2017-03-27 07:55] LABS: ABG BASE EXCESS 6.8 MMOL/L (-2.5-2.5); ABG OXYGEN SATURATION 98 % (94-100); ABG PO2 118 MMHG (79-93); ABG TCO2 37.4 MMOL/L (21.0-31.0)
[2017-03-27 07:58] LABS: ABG PCO2 94 MMHG (35-45); ABG PH 7.19 (7.37-7.43); ALLENS TEST YES-POS; INSPIRED O2 15; VENTILATOR NO
[2017-03-27 07:59] LABS: PATIENT TEMP 99.1
[2017-03-27 08:09] LABS: BASOPHILS % (AUTO) 0 % (0-10); EOSINOPHILS # (AUTO) 0.1 10^3/uL (0.0-0.3); EOSINOPHILS % (AUTO) 1 % (0-10); HEMATOCRIT 39 % (40-54); LYMPHOCYTES # (AUTO) 2.2 X 10^3 (1.0-4.0); LYMPHOCYTES % (AUTO) 24 % (12-44); MEAN CORPUSCULAR HEMOGLOBIN 26 PG (25-34); MEAN CORPUSCULAR HGB CONC 31 G/DL (32-36); MEAN CORPUSCULAR VOLUME 85 FL (80-99); MEAN PLATELET VOLUME 9.8 FL (7.4-10.4); MONOCYTES # (AUTO) 0.8 X 10^3 (0.0-1.0); MONOCYTES % (AUTO) 9 % (0-12); NEUTROPHILS # (AUTO) 6.1 X 10^3 (1.8-7.8); NEUTROPHILS % (AUTO) 66 % (42-75); PLATELET COUNT 224 10^3/uL (130-400); RED BLOOD COUNT 4.56 10^6/uL (4.35-5.85); RED CELL DISTRIBUTION WIDTH 18.7 % (10.0-14.5); WHITE BLOOD COUNT 9.2 10^3/uL (4.3-11.0)
[2017-03-27 08:33] LABS: BUN/CREATININE RATIO 15; CALCIUM 7.8 MG/DL (8.5-10.1); CARBON DIOXIDE 34 MMOL/L (21-32); CHLORIDE 105 MMOL/L (98-107); GFR ESTIMATED > 60; GLUCOSE 119 MG/DL (70-105); MAGNESIUM 2.3 MG/DL (1.8-2.4); PHOSPHORUS 3.5 MG/DL (2.3-4.7); POTASSIUM 4.7 MMOL/L (3.6-5.0); SODIUM 145 MMOL/L (135-145)
[2017-03-27] MEDS ORDERED: NS IV 1000 ML 1,000 ML ONE (08:54)
[2017-03-27] MEDS ORDERED: PROPOFOL DRIP (ICU) 100 ML IV ONE (08:54)
[2017-03-27] MEDS ORDERED: NS IV 1000 ML 1,000 ML IV SCH (09:15)
[2017-03-27] MEDS: PROPOFOL DRIP (ICU) 100 ML IV SCH ×3 (09:17→19:36)
--- NOTE | 2017-03-27 09:22 | Pulmonary Procedures ---
Pulmonary Procedures Date of Procedure Date of Service: Mar 27, 2017 Reason for Intubation: acute respiratory failure Time of Intubation: 09:21 Intubation Method: orotracheal Tube Size: 8.0 Medications: Propofol Positive End Tide CO2: Yes Breath Sounds after Intubation: bilateral-equal Intubation Complications: no complications Post Intubation Xray: Yes JESSICA LEÓN DO Mar 27, 2017 09:22
--- NOTE | 2017-03-27 09:37 | Pulmonary Procedures ---
Pulmonary Procedures Date of Procedure Date of Service: Mar 27, 2017 Procedure: Bronchoscopy with bronchoalveolar lavage (BAL) RML Preop DX pneumonia and mucous plugging Postop DX: same Complications: none After informed consent obtained and formal time out pt was sedated using Fentanyl and Versed. Bronchoscope was advanced through the nare and vocal cords. 1% lidocaine was used to anesthetize vocal cords, epiglottis, anibal, and left/right main stem bronchus. An anatomical tour was undertaken down to the segmental bronchi bilaterally. No endobronchial lesions noted. From the RML a bronchoalveolar lavage (BAL), transbronchial washes Pt tolerated procedure well. No complications noted. Stat CXR is pending. JESSICA LEÓN DO Mar 27, 2017 09:37
[2017-03-27] MEDS: FAMOTIDINE 20MG/2ML IV (PEPCID) IV SCH ×2 (10:09→20:50)
[2017-03-27] MEDS: NS IV 1000 ML 1,000 ML IV SCH ×3 (10:09→23:50)
[2017-03-27] MEDS: OXYBUTYNIN (DITROPAN) 5 MG TAB PO SCH ×2 (10:10→21:00)
[2017-03-27] MEDS: LEVETIRACETAM 500 MG (KEPPRA) TAB PO SCH (10:10)
[2017-03-27] MEDS: guaiFENesin (MUCINEX) 600 MG TAB PO SCH ×2 (10:15→21:00)
--- NOTE | 2017-03-27 10:34 | Progress Note-Hospitalist ---
JESSICA ARAGON MEDICAL STUDENT 03/27/17 1034: Progress Note HPI/CC on Admission CC: Pneumonia HPI: This is a severe MR patient of Dr Marroquin who presents to ER w/wheezing after completing Bactrim for URI. Apparently he had worsened and was admitted to [facility] but upon further evaluation he was a Dr Marroquin patient so I have taken him on the Hospitalist service. no hx obtainable. Dr Lam was consulted. Progress Notes/Assess & Plan Date Seen 03/27/17 Time Seen by Provider: 09:45 Admission Dx/Process Assessment: Bilateral pneumonia Severe MR Chronic debility Mental illness with aggression Diagonsis/Assessment & Plan Pt was transferred to the unit this morning 2/2 worsening respiratory function. ABG showed 7.19/94/118 and he was subsequently intubated. He remains on zosyn. BCx so far are negative. He remains unable to communicate. SW is in the process of getting DNR from guardian. ROS: Unable to obtain PE: General- Increased WOB HEENT- non-traumatic, normocephalic, PERRLA Cardio- RRR, no murmurs rubs or gallops appreciated Resp- Even chest movement, diffuse crackles and diminished breath sounds GI- soft, non distended. -BS Ext- no LE swelling Neuro- AOx0 Assessment: Bilateral pneumonia Severe MR Chronic debility Mental illness with aggression Plan: Continue zosyn and escalate if BCx grow anything. Intubated this morning Appreciate Dr. Lam recs Poor prognosis Needs end of life care ELIZA HER DO 03/27/17 1111: Progress Note Progress Notes/Assess & Plan Time Seen by Provider: 11:00 Diagonsis/Assessment & Plan A she was intubated after respiratory failure noted on ABG Severely poor prognosis considering severe mental retardation and recovery is unlikely Guardian and Court process ensuing for DO NOT RESUSCITATE comfort care Patient unresponsive on ventilator Coarse breath sounds all coronado on vent Assessment: Vent dependent respiratory failure Bilateral pneumonia resistant type suspected Severe mental retardation Aggression and behavior problems Plan: Maintain ventilator until DO NOT RESUSCITATE and withdrawal of care obtained from Court process due to mental retardation and legal process JESSICA ARAGON MEDICAL STUDENT Mar 27, 2017 10:34 ELIZA HER DO Mar 27, 2017 11:11
--- NOTE | 2017-03-27 10:42 | Diagnostic Imaging Report ---
INDICATION: Intubation and OG tube placement. TIME OF EXAM: 10:13 AM COMPARISON: Comparison is made with prior chest radiograph from one day earlier. FINDINGS: The patient has been intubated. The ET tube has the tip above the anibal at the level of the clavicular heads. An OG tube passes into the stomach. There has been worsening infiltrates, particularly in the left perihilar and left basilar region since yesterday. There is also some mild increasing right basilar infiltrate or atelectasis. No pneumothorax is seen. IMPRESSION: Worsening bilateral infiltrates with placement of endotracheal tube and an orogastric tube, as described. Dictated by: Dictated on workstation # [id number]
--- NOTE | 2017-03-27 11:13 | Occ Therapy Progress Note ---
Therapy Progress Note Pt has been transferred from medical floor to intensive care, a higher level of care, and will need new OT orders when appropriate. MABEL STALLINGS OT Mar 27, 2017 11:13
[2017-03-27 12:15] LABS: ABG BASE EXCESS 7.5 MMOL/L (-2.5-2.5); ABG OXYGEN SATURATION 99 % (94-100); ABG PCO2 53 MMHG (35-45); ABG PO2 178 MMHG (79-93); ABG TCO2 33.9 MMOL/L (21.0-31.0)
[2017-03-27 12:16] LABS: ALLENS TEST YES-POS
[2017-03-27 12:17] LABS: INSPIRED O2 80%; PATIENT TEMP 98.7; VENTILATOR YES
[2017-03-27] MEDS: cloZAPine 100 MG (CLOZARIL) TAB PO SCH (15:05)
[2017-03-27] MEDS: LEVETIRACETAM INJECTION 500 MG in NS (IVPB) 50 ML IV SCH (20:57)
[2017-03-27] MEDS: QUEtiapine 200 MG (SEROquel) TAB IMMEDIATE RELEASE PO SCH (21:00)
[2017-03-27] MEDS: ATORVASTATIN 20 MG (LIPITOR) TABLET PO SCH (21:00)
[2017-03-28] VITALS (64 sets, daily range): BP systolic 95–167; BP diastolic 62–108
[2017-03-28] MEDS: PROPOFOL DRIP (ICU) 100 ML IV SCH ×4 (01:12→20:16)
[2017-03-28] MEDS: RT-ALBUTEROL/IPRATROPIUM 3 ML (DUONEB) VIAL INH SCH ×6 (01:25→22:02)
[2017-03-28 04:09] LABS: BASOPHILS % (AUTO) 0 % (0-10); EOSINOPHILS # (AUTO) 0.1 10^3/uL (0.0-0.3); EOSINOPHILS % (AUTO) 1 % (0-10); HEMATOCRIT 33 % (40-54); HEMOGLOBIN 10.4 G/DL (13.3-17.7); LYMPHOCYTES % (AUTO) 31 % (12-44); MEAN CORPUSCULAR HEMOGLOBIN 26 PG (25-34); MEAN CORPUSCULAR HGB CONC 31 G/DL (32-36); MEAN CORPUSCULAR VOLUME 83 FL (80-99); MEAN PLATELET VOLUME 9.8 FL (7.4-10.4); MONOCYTES # (AUTO) 0.9 X 10^3 (0.0-1.0); MONOCYTES % (AUTO) 9 % (0-12); NEUTROPHILS # (AUTO) 5.5 X 10^3 (1.8-7.8); NEUTROPHILS % (AUTO) 58 % (42-75); PLATELET COUNT 210 10^3/uL (130-400); RED BLOOD COUNT 4.02 10^6/uL (4.35-5.85); RED CELL DISTRIBUTION WIDTH 17.9 % (10.0-14.5); WHITE BLOOD COUNT 9.5 10^3/uL (4.3-11.0)
[2017-03-28 04:48] LABS: ABG BASE EXCESS 5.8 MMOL/L (-2.5-2.5); ABG OXYGEN SATURATION 90 % (94-100); ABG PCO2 42 MMHG (35-45); ABG PH 7.46 (7.37-7.43); ABG PO2 54 MMHG (79-93); ABG TCO2 30.9 MMOL/L (21.0-31.0); ALLENS TEST YES-POS; INSPIRED O2 45% FIO2; PATIENT TEMP 98.7; VENTILATOR YES
[2017-03-28 05:06] LABS: BUN/CREATININE RATIO 14; CALCIUM 7.6 MG/DL (8.5-10.1); CARBON DIOXIDE 24 MMOL/L (21-32); CHLORIDE 105 MMOL/L (98-107); CREATININE SERUM 0.56 MG/DL (0.60-1.30); GFR ESTIMATED > 60; GLUCOSE 77 MG/DL (70-105); POTASSIUM 3.9 MMOL/L (3.6-5.0); SODIUM 141 MMOL/L (135-145)
[2017-03-28] MEDS: PIPERACILLIN/TAZOBACTAM 4.5 GM/D5W 100 ML IVPB IV SCH ×6 (05:08→22:03)
[2017-03-28] MEDS: D5W 1000 ML IV SOLUTION 1,000 ML IV SCH ×2 (05:15→15:19)
[2017-03-28] MEDS: KCL 20 MEQ TAB (K-DUR) PO SCH (06:00)
[2017-03-28] MEDS: MAGNESIUM 1 GM/100 ML IVPB 100 ML IV SCH (06:00)
[2017-03-28] MEDS: POTASSIUM CL 10MEQ/50ML IVPB 50 ML IV SCH (06:00)
[2017-03-28] MEDS: NS IV 1000 ML 1,000 ML IV SCH ×4 (06:41→22:39)
--- NOTE | 2017-03-28 07:00 | Pulmonary Progress Note ---
Subjective Time Seen by Provider: 07:23 Subjective/Events-last exam pt is currently sedated on vent. Exam Exam Vital Signs Date Time Temp Pulse Resp B/P (MAP) Pulse Ox O2 Delivery O2 Flow Rate FiO2 03/28/17 06:00 80 17 114/78 (90) 95 Mechanical Ventilator 45.00 03/28/17 05:00 80 30 141/98 (112) 98 Mechanical Ventilator 45.00 03/28/17 04:35 77 18 96 45 03/28/17 04:00 81 13 102/67 (79) 95 Mechanical Ventilator 45.00 03/28/17 03:00 89 28 104/68 (80) 94 Mechanical Ventilator 45.00 03/28/17 02:00 91 27 95/62 (73) 93 Mechanical Ventilator 45.00 03/28/17 01:25 83 18 93 45 03/28/17 01:12 85 26 111/75 93 Mechanical Ventilator 45.00 03/28/17 01:00 87 28 111/75 (87) 94 Mechanical Ventilator 45.00 03/28/17 01:00 85 03/28/17 00:00 87 26 95/64 (74) 95 Mechanical Ventilator 45.00 03/28/17 00:00 97.7 Mechanical Ventilator 45.00 03/28/17 00:00 Mechanical Ventilator 45 03/27/17 23:00 90 25 100/64 (76) 95 Mechanical Ventilator 45.00 03/27/17 22:29 Mechanical Ventilator 45.00 03/27/17 22:22 82 18 96 45 03/27/17 22:00 84 28 101/69 (80) 96 Mechanical Ventilator 50.00 03/27/17 21:00 89 17 101/71 (81) 96 Mechanical Ventilator 50.00 03/27/17 20:35 89 18 96 50 03/27/17 20:00 Mechanical Ventilator 55 03/27/17 20:00 97.6 96 14 99/67 (78) 96 Mechanical Ventilator 55.00 03/27/17 19:36 98 17 120/79 97 Mechanical Ventilator 35.00 03/27/17 19:00 94 03/27/17 19:00 93 18 100/65 (77) 95 Mechanical Ventilator 60.00 03/27/17 18:42 82 18 98 55 03/27/17 18:00 81 18 98/65 (76) 100 Mechanical Ventilator 60.00 03/27/17 17:00 87 14 107/75 (86) 100 Mechanical Ventilator 60.00 03/27/17 16:18 93 18 100 60 03/27/17 16:00 93 14 102/69 (80) 100 Mechanical Ventilator 60.00 03/27/17 16:00 97.4 03/27/17 15:00 101 27 100/65 (77) 100 Mechanical Ventilator 60.00 03/27/17 15:00 NIV Bilevel 80 03/27/17 14:44 101 03/27/17 14:15 Mechanical Ventilator 60.00 03/27/17 14:15 84 18 100 80 03/27/17 14:00 85 17 123/87 (99) 100 Mechanical Ventilator 80.00 03/27/17 13:42 98.6 89 18 117/84 100 Mechanical Ventilator 80.00 03/27/17 13:00 90 17 122/84 (97) 100 Mechanical Ventilator 80.00 03/27/17 12:20 98.6 03/27/17 12:04 99 19 100 80 03/27/17 12:00 95 13 117/83 (94) 100 Mechanical Ventilator 80.00 03/27/17 12:00 NIV Bilevel 80 03/27/17 11:00 95 17 118/85 (96) 100 Mechanical Ventilator 80.00 03/27/17 10:35 Mechanical Ventilator 80.00 03/27/17 10:27 89 18 100 100 03/27/17 10:00 96 11 110/93 (99) 100 Mechanical Ventilator 100.00 03/27/17 09:25 27 03/27/17 09:17 101 21 86/74 100 Mechanical Ventilator 100.00 03/27/17 09:15 Mechanical Ventilator 100.00 03/27/17 09:15 93 27 100 100 03/27/17 09:01 NIV Bilevel 100.00 03/27/17 09:00 NIV Bilevel 100 03/27/17 09:00 84 32 108/87 (94) 99 OxyMask 6.00 03/27/17 08:45 96.9 03/27/17 07:50 96 OxyMask 15.00 03/27/17 07:35 OxyMask 6.00 I & O 03/28/17 07:00 Intake Total 3930 ml Output Total 1850 ml Balance 2080 ml General Appearance: No Apparent Distress, WD/WN, Chronically ill, Other ( unresponsive) Respiratory: Accessory Muscle Use, Crackles, Decreased Breath Sounds, Rales, Rhonci, Wheezing Cardiovascular: Regular Rate, Rhythm, No Edema, No Gallop, No JVD, No Murmur, Normal Peripheral Pulses Capillary Refill: Less Than 3 Seconds Extremity: Normal Capillary Refill, Normal Inspection, Normal Range of Motion, Non Tender, No Calf Tenderness, No Pedal Edema Neurologic/Psychiatric: Other (unresponsive) Skin: Normal Color, Warm/Dry Lymphatic: No Adenopathy Results Lab Laboratory Tests 03/27/17 08:00 03/28/17 03:26 Assessment/Plan Assessment/Plan -Acute bilateral pneumonia with hypoxemia -Continue zosyn -anderson culture pending -Urine strep and legionella ag -IVF -Check ABG Acute respiratory failure Hypernatremia -IVF Hx of severe MR Unresponsive CXR shows extensive bilateral infiltrates. Pt is requiring highflow oxygen Pt has hx of severe MR and is now sedated on vent. I discussed with patients guardian and he wishes pt to be no code. He state to run coarse of ventilator as we would with any other patient. I have also discussed patients medical condition in depth with medical staff including social work. Labs and radiology reviewed. 60min of ICU time spent with patient and medical staff. Clinical Quality Measures DVT/VTE Risk/Contraindication: Risk Factor Score Per Nursin RFS Level Per Nursing on Admit: 4+=Very High JESSICA LEÓN DO Mar 28, 2017 07:00
--- NOTE | 2017-03-28 07:57 | Diagnostic Imaging Report ---
INDICATION: Respiratory difficulty. Comparison made with prior examination from 03/27/2017. FINDINGS: The ET and NG tubes are in satisfactory position. There is some central pulmonary venous congestion. There are patchy bibasal infiltrates. IMPRESSION: Patchy bibasilar infiltrates and some mild central pulmonary venous congestion. Dictated by: Dictated on workstation # [id number]
--- NOTE | 2017-03-28 08:29 | Progress Note-Hospitalist ---
Subjective HPI/CC On Admission Date Seen by Provider: Mar 28, 2017 Time Seen by Provider: 08:23 CC: Pneumonia HPI: This is a severe MR patient of Dr Marroquin who presents to ER w/wheezing after completing Bactrim for URI. Apparently he had worsened and was admitted to [facility] but upon further evaluation he was a Dr Marroquin patient so I have taken him on the Hospitalist service. no hx obtainable. Dr Lam was consulted. Subjective/Events-last exam Pt is unresponsive on the vent. No ROS obtainable. Objective Exam Vital Signs Vital Sign - Last 12Hours 03/25/17 03/25/17 03/27/17 11:12 11:15 09:00 Temp 98.0 Pulse 112 Resp 24 B/P (MAP) 144/108 (120) Pulse Ox 96 O2 Delivery OxyMask O2 Flow Rate 8.00 FiO2 100 Capillary Refill : Less Than 3 SecondsLess Than 3 Seconds General Appearance: No Apparent Distress, WD/WN Respiratory: No Accessory Muscle Use, Rhonci, No Wheezing, Other (on vent) Cardiovascular: Regular Rate, Rhythm, No Murmur Gastrointestinal: Normal Bowel Sounds, Non Tender, Soft Extremity: No Swelling Results/Procedures Lab Laboratory Tests 03/28/17 03:26 Assessment/Plan Assessment and Plan Assess & Plan/Chief Complaint acute respiratory failure Diagnosis/Problems Diagnosis/Problems (1) Acute respiratory failure Assessment & Plan: On vent Pulm consulted, appreciate recs Pt now a DNR/DNI Court appointed guardian established Will attempt extubation tomorrow Qualifiers: Qualified Codes: J96.02 - Acute respiratory failure with hypercapnia (2) Pneumonia Status: Acute Assessment & Plan: Continue on Zosyn Sputum showed normal benjamín Qualifiers: Qualified Codes: J18.9 - Pneumonia, unspecified organism (3) Seizure disorder Status: Acute Assessment & Plan: Continue Keppra (4) Mental retardation Status: Chronic Assessment & Plan: Court appointed guardian in place Unsure of baseline CYNTHIA FAN MD Mar 28, 2017 8:29 am
[2017-03-28] MEDS: FAMOTIDINE 20MG/2ML IV (PEPCID) IV SCH ×2 (08:40→21:17)
[2017-03-28] MEDS: LEVETIRACETAM INJECTION 500 MG in NS (IVPB) 50 ML IV SCH (08:40)
[2017-03-28] MEDS: OXYBUTYNIN (DITROPAN) 5 MG TAB PO SCH ×2 (08:47→21:18)
[2017-03-28] MEDS: guaiFENesin (MUCINEX) 600 MG TAB PO SCH ×2 (08:48→21:18)
[2017-03-28] MEDS ORDERED: LEVETIRACETAM IV SCH (09:00)
[2017-03-28] MEDS ORDERED: D5W IV SCH (09:00)
[2017-03-28] MEDS ORDERED: hydrALAZINE (APESOLINE) 20 MG/ML VIAL IV PRN (12:00)
[2017-03-28] MEDS: cloZAPine 100 MG (CLOZARIL) TAB PO SCH (15:19)
[2017-03-28] MEDS: QUEtiapine 200 MG (SEROquel) TAB IMMEDIATE RELEASE PO SCH (21:18)
[2017-03-28] MEDS: ATORVASTATIN 20 MG (LIPITOR) TABLET PO SCH (21:18)
[2017-03-28] MEDS: D5W IV SCH (21:30)
[2017-03-28] MEDS: LEVETIRACETAM IV SCH (21:30)
[2017-03-29] VITALS (35 sets, daily range): BP systolic 76–167; BP diastolic 53–117
[2017-03-29] MEDS: D5W 1000 ML IV SOLUTION 1,000 ML IV SCH ×3 (01:15→21:15)
[2017-03-29] MEDS: PROPOFOL DRIP (ICU) 100 ML IV SCH (01:52)
[2017-03-29] MEDS: RT-ALBUTEROL/IPRATROPIUM 3 ML (DUONEB) VIAL INH SCH ×2 (01:52→06:10)
[2017-03-29 04:18] LABS: ABG BASE EXCESS 3.6 MMOL/L (-2.5-2.5); ABG OXYGEN SATURATION 88 % (94-100); ABG PCO2 45 MMHG (35-45); ABG PH 7.41 (7.37-7.43); ABG PO2 55 MMHG (79-93); ABG TCO2 29.5 MMOL/L (21.0-31.0)
[2017-03-29 04:19] LABS: ALLENS TEST YES-POS; INSPIRED O2 45%; PATIENT TEMP 97.6; VENTILATOR YES
[2017-03-29] MEDS: PIPERACILLIN/TAZOBACTAM 4.5 GM/D5W 100 ML IVPB IV SCH ×6 (05:13→21:42)
[2017-03-29 05:36] LABS: BASOPHILS # (AUTO) 0.1 10^3/uL (0.0-0.1); BASOPHILS % (AUTO) 1 % (0-10); EOSINOPHILS # (AUTO) 0.1 10^3/uL (0.0-0.3); EOSINOPHILS % (AUTO) 1 % (0-10); HEMATOCRIT 37 % (40-54); LYMPHOCYTES # (AUTO) 2.5 X 10^3 (1.0-4.0); LYMPHOCYTES % (AUTO) 26 % (12-44); MEAN CORPUSCULAR HEMOGLOBIN 26 PG (25-34); MEAN CORPUSCULAR HGB CONC 33 G/DL (32-36); MEAN CORPUSCULAR VOLUME 80 FL (80-99); MEAN PLATELET VOLUME 9.8 FL (7.4-10.4); MONOCYTES # (AUTO) 0.9 X 10^3 (0.0-1.0); MONOCYTES % (AUTO) 9 % (0-12); NEUTROPHILS # (AUTO) 6.2 X 10^3 (1.8-7.8); NEUTROPHILS % (AUTO) 63 % (42-75); PLATELET COUNT 243 10^3/uL (130-400); RED BLOOD COUNT 4.57 10^6/uL (4.35-5.85); RED CELL DISTRIBUTION WIDTH 17.9 % (10.0-14.5); WHITE BLOOD COUNT 9.8 10^3/uL (4.3-11.0)
[2017-03-29] MEDS: NS IV 1000 ML 1,000 ML IV SCH (05:36)
[2017-03-29 05:40] LABS: BUN/CREATININE RATIO 11; CALCIUM 7.9 MG/DL (8.5-10.1); CARBON DIOXIDE 18 MMOL/L (21-32); CHLORIDE 107 MMOL/L (98-107); CREATININE SERUM 0.55 MG/DL (0.60-1.30); GFR ESTIMATED > 60; GLUCOSE 91 MG/DL (70-105); MAGNESIUM 1.7 MG/DL (1.8-2.4); POTASSIUM 4.1 MMOL/L (3.6-5.0); SODIUM 142 MMOL/L (135-145)
[2017-03-29] MEDS: KCL 20 MEQ TAB (K-DUR) PO SCH (06:00)
[2017-03-29] MEDS: MAGNESIUM 1 GM/100 ML IVPB 100 ML IV SCH ×3 (06:00→07:08)
[2017-03-29] MEDS: POTASSIUM CL 10MEQ/50ML IVPB 50 ML IV SCH (06:00)
--- NOTE | 2017-03-29 09:02 | Progress Note-Hospitalist ---
Subjective HPI/CC On Admission Date Seen by Provider: Mar 29, 2017 Time Seen by Provider: 08:58 CC: Pneumonia HPI: This is a severe MR patient of Dr Marroquin who presents to ER w/wheezing after completing Bactrim for URI. Apparently he had worsened and was admitted to [facility] but upon further evaluation he was a Dr Marroquin patient so I have taken him on the Hospitalist service. no hx obtainable. Dr Lam was consulted. Subjective/Events-last exam Pt is intubated and sedated. Unable to provide any ROS. Objective Exam Vital Signs Vital Sign - Last 12Hours 03/25/17 03/25/17 03/27/17 11:12 11:15 09:00 Temp 98.0 Pulse 112 Resp 24 B/P (MAP) 144/108 (120) Pulse Ox 96 O2 Delivery OxyMask O2 Flow Rate 8.00 FiO2 100 Capillary Refill : Less Than 3 SecondsLess Than 3 Seconds General Appearance: No Apparent Distress, WD/WN Respiratory: Lungs Clear, Other (on vent) Cardiovascular: Regular Rate, Rhythm, No Murmur Gastrointestinal: Normal Bowel Sounds, Non Tender, Soft Extremity: Normal Capillary Refill, No Pedal Edema Results/Procedures Lab Laboratory Tests 03/29/17 04:02 03/29/17 05:22 Assessment/Plan Assessment and Plan Assess & Plan/Chief Complaint acute respiratory failure Diagnosis/Problems Diagnosis/Problems (1) Acute respiratory failure Assessment & Plan: On vent Pulm consulted, appreciate recs Pt now a DNR/DNI Court appointed guardian established Failed weaning trial today Qualifiers: Qualified Codes: J96.02 - Acute respiratory failure with hypercapnia (2) Pneumonia Status: Acute Assessment & Plan: Continue on Zosyn Sputum showed normal benjamín Qualifiers: Qualified Codes: J18.9 - Pneumonia, unspecified organism (3) Metabolic acidosis Status: Acute Assessment & Plan: New today with gap of 17 Will get lactic acid and UA Blood sugar normal Adequate urine output, creatinine normal (4) Seizure disorder Status: Acute Assessment & Plan: Continue Keppra (5) Mental retardation Status: Chronic Assessment & Plan: Court appointed guardian in place Unsure of baseline CYNTHIA FAN MD Mar 29, 2017 09:02
[2017-03-29] MEDS ORDERED: SCOPOLAMINE 1.5 MG (TRANSDERM-SCOP) PATCH TOP SCH (09:15)
[2017-03-29] MEDS ORDERED: morphine (ROXINOL) 10 MG/0.5 ML oral conc 0.5 ML PO PRN (09:15)
[2017-03-29] MEDS ORDERED: PROMETHAZINE INJ 25 MG/ML (PHENERGAN) AMP IVP PRN (09:15)
[2017-03-29] MEDS ORDERED: ARTIFICIAL TEARS OINT (LACRI-LUBE) 3.5 GM TUBE OU PRN (09:15)
[2017-03-29] MEDS ORDERED: ARTIFICAL TEARS 0.4 ML UNIT DOSE (REFRESH PLUS) OU PRN (09:15)
[2017-03-29] MEDS ORDERED: GLYCOPYRROLATE 0.2 MG/ML (ROBINUL) 2 ML VIAL IV PRN (09:15)
[2017-03-29] MEDS ORDERED: ONDANSETRON 4 MG/2 ML (SDV) Z0FRAN IVP PRN (09:15)
[2017-03-29] MEDS ORDERED: LORazepam INJ 2 MG/ML (ATIVAN) VIAL IVP PRN (09:15)
[2017-03-29] MEDS ORDERED: SALIVA STIMULANT MOUTH SPRAY (BIOTENE) 1.5 OZ MM PRN (09:15)
[2017-03-29] MEDS ORDERED: RT-ALBUTEROL/IPRATROPIUM 3 ML (DUONEB) VIAL INH PRN (09:15)
[2017-03-29] MEDS ORDERED: BISACODYL 10 MG SUPP (DULCOLAX) PR PRN (09:15)
[2017-03-29] MEDS ORDERED: ACETAMINOPHEN 650 MG SUPP (TYLENOL) PR PRN (09:15)
[2017-03-29] MEDS: morphine INJ 4 MG/ML 1 ML (VIAL/SYRINGE) IV PRN ×4 (10:13→23:24)
--- NOTE | 2017-03-29 10:34 | Diagnostic Imaging Report ---
INDICATION: Shortness of breath. Comparison is made with prior examination from 03/28/2017. FINDINGS: The ET and NG tubes are in satisfactory position. There is cardiomegaly. There is some central pulmonary venous congestion. There is no pleural effusion or pneumothorax. There is a right basilar consolidation. IMPRESSION: Cardiomegaly and moderate central pulmonary venous congestion with focal infiltrate in the medial aspect of the right lung base. Dictated by: Dictated on workstation # [id number]
[2017-03-29] MEDS: ATROPINE 1% OPHTHALMIC SOLN 2 ML SL PRN ×2 (11:37→17:16)
[2017-03-29] MEDS: FAMOTIDINE 20MG/2ML IV (PEPCID) IV SCH ×2 (11:41→21:16)
[2017-03-29] MEDS: D5W IV SCH ×2 (11:41→21:23)
[2017-03-29] MEDS: LEVETIRACETAM IV SCH ×2 (11:41→21:23)
[2017-03-29] MEDS: OXYBUTYNIN (DITROPAN) 5 MG TAB PO SCH ×2 (11:46→21:00)
[2017-03-29] MEDS: guaiFENesin (MUCINEX) 600 MG TAB PO SCH ×2 (11:46→21:00)
[2017-03-29] MEDS: LORazepam ORAL CONCENTRATE 2 MG/ML 30 ML (ATIVAN) PO PRN ×3 (13:32→21:43)
[2017-03-29] MEDS: cloZAPine 100 MG (CLOZARIL) TAB PO SCH (15:29)
[2017-03-29 18:28] LABS: BILIRUBIN,URINE NEGATIVE (NEGATIVE); CLARITY,URINE CLEAR; COLOR,URINE YELLOW; GLUCOSE, URINE (UA) NEGATIVE (NEGATIVE); KETONES,URINE NEGATIVE (NEGATIVE); LEUKOCYTE ESTERASE ,URINE NEGATIVE (NEGATIVE); NITRITE,URINE NEGATIVE (NEGATIVE); PH,URINE 8 (5-9); PROTEIN,URINE NEGATIVE (NEGATIVE); UROBILINOGEN,URINE NORMAL (NORMAL)
[2017-03-29 18:39] LABS: BACTERIA,URINE NEGATIVE /HPF
[2017-03-29] MEDS: QUEtiapine 200 MG (SEROquel) TAB IMMEDIATE RELEASE PO SCH (21:00)
[2017-03-29] MEDS: ATORVASTATIN 20 MG (LIPITOR) TABLET PO SCH (21:00)
[2017-03-30] VITALS (17 sets, daily range): BP systolic 101–162; BP diastolic 70–105
[2017-03-30] MEDS: morphine INJ 4 MG/ML 1 ML (VIAL/SYRINGE) IV PRN ×2 (02:01→23:17)
[2017-03-30] MEDS: LORazepam ORAL CONCENTRATE 2 MG/ML 30 ML (ATIVAN) PO PRN ×2 (02:01→02:06)
[2017-03-30 05:02] LABS: BASOPHILS # (AUTO) 0.1 10^3/uL (0.0-0.1); BASOPHILS % (AUTO) 0 % (0-10); EOSINOPHILS # (AUTO) 0.1 10^3/uL (0.0-0.3); EOSINOPHILS % (AUTO) 1 % (0-10); HEMATOCRIT 39 % (40-54); HEMOGLOBIN 12.7 G/DL (13.3-17.7); LYMPHOCYTES # (AUTO) 2.2 X 10^3 (1.0-4.0); LYMPHOCYTES % (AUTO) 20 % (12-44); MEAN CORPUSCULAR HEMOGLOBIN 26 PG (25-34); MEAN CORPUSCULAR HGB CONC 33 G/DL (32-36); MEAN CORPUSCULAR VOLUME 80 FL (80-99); MEAN PLATELET VOLUME 9.6 FL (7.4-10.4); MONOCYTES # (AUTO) 1.3 X 10^3 (0.0-1.0); MONOCYTES % (AUTO) 12 % (0-12); NEUTROPHILS # (AUTO) 7.6 X 10^3 (1.8-7.8); NEUTROPHILS % (AUTO) 67 % (42-75); PLATELET COUNT 261 10^3/uL (130-400); RED BLOOD COUNT 4.86 10^6/uL (4.35-5.85); RED CELL DISTRIBUTION WIDTH 17.6 % (10.0-14.5); WHITE BLOOD COUNT 11.3 10^3/uL (4.3-11.0)
[2017-03-30] MEDS: PIPERACILLIN/TAZOBACTAM 4.5 GM/D5W 100 ML IVPB IV SCH ×6 (05:21→23:17)
[2017-03-30 05:32] LABS: BUN/CREATININE RATIO 11; CALCIUM 8.6 MG/DL (8.5-10.1); CARBON DIOXIDE 27 MMOL/L (21-32); CHLORIDE 100 MMOL/L (98-107); CREATININE SERUM 0.54 MG/DL (0.60-1.30); GFR ESTIMATED > 60; GLUCOSE 99 MG/DL (70-105); MAGNESIUM 1.6 MG/DL (1.8-2.4); PHOSPHORUS 3.8 MG/DL (2.3-4.7); POTASSIUM 3.6 MMOL/L (3.6-5.0); SODIUM 139 MMOL/L (135-145)
[2017-03-30] MEDS: POTASSIUM CL 10MEQ/50ML IVPB 50 ML IV SCH ×3 (06:00→06:56)
[2017-03-30] MEDS: MAGNESIUM 1 GM/100 ML IVPB 100 ML IV SCH ×3 (06:00→06:57)
[2017-03-30] MEDS: KCL 20 MEQ TAB (K-DUR) PO SCH (06:00)
--- NOTE | 2017-03-30 06:59 | Pulmonary Progress Note ---
Subjective Time Seen by Provider: 06:59 Subjective/Events-last exam PT was extubated and made DNR/DNI. He is actually doing well off vent. Exam Exam Vital Signs Date Time Temp Pulse Resp B/P (MAP) Pulse Ox O2 Delivery O2 Flow Rate FiO2 03/30/17 06:46 96 Nasal Cannula 3.00 03/30/17 06:00 122 101/75 (84) 94 Nasal Cannula 3.00 03/30/17 05:00 120 107/70 (82) 93 Nasal Cannula 3.00 03/30/17 04:05 97.8 Nasal Cannula 3.00 03/30/17 04:00 Nasal Cannula 3.00 03/30/17 04:00 113 30 136/94 (108) 94 Nasal Cannula 3.00 03/30/17 03:00 115 10 162/104 (123) 94 Nasal Cannula 3.00 03/30/17 02:00 107 15 152/102 (119) 94 Nasal Cannula 3.00 03/30/17 01:00 117 15 155/99 (117) 94 Nasal Cannula 3.00 03/30/17 01:00 117 03/30/17 00:15 98.9 Nasal Cannula 3.00 03/30/17 00:00 118 20 151/100 (117) 93 Nasal Cannula 2.00 03/30/17 00:00 Nasal Cannula 3.00 03/29/17 23:00 116 15 139/113 (122) 93 Nasal Cannula 2.00 03/29/17 22:00 114 27 117/84 (95) 90 Nasal Cannula 2.00 03/29/17 21:00 120 22 136/101 (113) 92 Nasal Cannula 2.00 03/29/17 20:00 121 21 86/53 (64) 92 Nasal Cannula 2.00 03/29/17 20:00 Nasal Cannula 2.00 03/29/17 19:56 98.4 Nasal Cannula 2.00 03/29/17 19:00 121 23 94/55 (68) 94 Nasal Cannula 2.00 03/29/17 19:00 121 03/29/17 18:00 124 19 102/68 (79) 93 Nasal Cannula 2.00 03/29/17 17:00 118 20 138/93 (108) 95 Nasal Cannula 2.00 03/29/17 16:00 Nasal Cannula 2.00 03/29/17 16:00 115 19 130/99 (109) 95 Nasal Cannula 2.00 03/29/17 15:00 116 20 135/97 (110) 94 Nasal Cannula 2.00 03/29/17 14:00 106 29 155/100 (118) 92 Nasal Cannula 2.00 03/29/17 13:00 107 03/29/17 13:00 106 20 167/103 (124) 94 Nasal Cannula 2.00 03/29/17 12:00 99.0 92 28 155/117 (130) 94 Nasal Cannula 2.00 03/29/17 12:00 Nasal Cannula 2.00 03/29/17 11:00 101 23 152/100 (117) 96 Nasal Cannula 2.00 03/29/17 10:20 100 Nasal Cannula 5.00 03/29/17 10:00 107 26 152/116 (128) 99 Nasal Cannula 2.00 03/29/17 09:58 Nasal Cannula 5.00 03/29/17 09:00 93 17 124/82 (96) 96 Mechanical Ventilator 45.00 03/29/17 08:35 94 18 96 45 03/29/17 08:00 Mechanical Ventilator 45 03/29/17 08:00 95 17 127/89 (102) 96 Mechanical Ventilator 45.00 03/29/17 07:00 98 18 142/91 (108) 99 Mechanical Ventilator 45.00 03/29/17 07:00 98 I & O 03/30/17 07:00 Intake Total 184 ml Output Total 4125 ml Balance -3941 ml General Appearance: No Apparent Distress, WD/WN HEENT: TMs Normal, Pharynx Normal Respiratory: Lungs Clear, Other (on vent) Cardiovascular: Regular Rate, Rhythm, No Murmur Capillary Refill: Less Than 3 Seconds Extremity: Normal Capillary Refill, No Pedal Edema Neurologic/Psychiatric: Other (unresponsive) Skin: Normal Color, Warm/Dry Lymphatic: No Adenopathy Results Lab Laboratory Tests 03/29/17 04:02 03/29/17 05:22 03/30/17 04:30 Assessment/Plan Assessment/Plan -Acute bilateral pneumonia with hypoxemia -Continue Zosyn -anderson culture pending -IVF Acute respiratory failure -Pt extubated and is now DNR/DNI Hypernatremia -IVF Hx of severe MR Unresponsive 233 Clinical Quality Measures DVT/VTE Risk/Contraindication: Risk Factor Score Per Nursin RFS Level Per Nursing on Admit: 4+=Very High JESSICA LEÓN DO Mar 30, 2017 06:59
[2017-03-30] MEDS: D5W 1000 ML IV SOLUTION 1,000 ML IV SCH ×2 (07:15→17:56)
--- NOTE | 2017-03-30 07:35 | Progress Note-Hospitalist ---
Subjective HPI/CC On Admission Date Seen by Provider: Mar 30, 2017 Time Seen by Provider: 07:20 CC: Pneumonia HPI: This is a severe MR patient of Dr Marroquin who presents to ER w/wheezing after completing Bactrim for URI. Apparently he had worsened and was admitted to [facility] but upon further evaluation he was a Dr Marroquin patient so I have taken him on the Hospitalist service. no hx obtainable. Dr Lam was consulted. Subjective/Events-last exam Doing well since extubation. Maintaining o2 sats on nasal cannula. Caregiver at bedside with no concerns. Julio C denies any pain but otherwise does not answer questions. Objective Exam Vital Signs Vital Sign - Last 12Hours 03/25/17 03/25/17 03/27/17 11:12 11:15 09:00 Temp 98.0 Pulse 112 Resp 24 B/P (MAP) 144/108 (120) Pulse Ox 96 O2 Delivery OxyMask O2 Flow Rate 8.00 FiO2 100 Capillary Refill : Less Than 3 SecondsLess Than 3 Seconds General Appearance: No Apparent Distress, WD/WN Respiratory: No Accessory Muscle Use, Rhonci Cardiovascular: No Murmur, Tachycardia Gastrointestinal: Non Tender, Soft, No Distended, No Guarding Neurologic/Psychiatric: Alert, Other (answers to him name, answer few questions for caregiver) Results/Procedures Lab Laboratory Tests 03/30/17 04:30 Assessment/Plan Assessment and Plan Assess & Plan/Chief Complaint acute respiratory failure Diagnosis/Problems Diagnosis/Problems (1) Acute respiratory failure Assessment & Plan: Extubated yesterday, tolerating well Pulm consulted, appreciate recs Pt now a DNR/DNI- will not reintubate Court appointed guardian established who agreed with extubation As doing relativley well off vent, will continue abx Qualifiers: Qualified Codes: J96.02 - Acute respiratory failure with hypercapnia (2) Pneumonia Status: Acute Assessment & Plan: Continue on Zosyn Sputum showed normal benjamín WBC elevated today, will trend No fever Qualifiers: Qualified Codes: J18.9 - Pneumonia, unspecified organism (3) Seizure disorder Status: Acute Assessment & Plan: Continue Keppra (4) Metabolic acidosis Status: Resolved Assessment & Plan: Resolved (5) Mental retardation Status: Chronic Assessment & Plan: Court appointed guardian in place Unsure of baseline (6) Hypokalemia Assessment & Plan: Replaced per protocol (7) Hypomagnesemia Assessment & Plan: replaced per protocol CYNTHIA FAN MD Mar 30, 2017 07:35
[2017-03-30] MEDS ORDERED: meTOprolol 5 MG/5 ML (LOPRESSOR) VIAL IV PRN (07:45)
[2017-03-30] MEDS: FAMOTIDINE 20MG/2ML IV (PEPCID) IV SCH ×2 (08:21→22:56)
[2017-03-30] MEDS: LEVETIRACETAM IV SCH ×2 (08:28→22:57)
[2017-03-30] MEDS: D5W IV SCH ×2 (08:28→22:57)
[2017-03-30] MEDS: OXYBUTYNIN (DITROPAN) 5 MG TAB PO SCH ×2 (08:29→22:39)
[2017-03-30] MEDS: guaiFENesin (MUCINEX) 600 MG TAB PO SCH ×2 (08:29→22:39)
--- NOTE | 2017-03-30 10:13 | Speech Therapy Progress Note ---
Therapy Progress Note Speech pathology re-attempted swallowing evaluation. The patient demonstrates reduced alertness, as well as, decreased ability to follow directions provided by the clinician. The patient demonstrates overt audible hypopharyngeal secretions at baseline. The patient intermittently coughs and chokes on his own secretions. The patient is positioned upright in attempts to clear the secretions. The upright position appears to aid the patient in coughing up secretions, however, the patient fails to expectorate. The patient does not elicit a swallow upon request from the clinician. At this time, the patient is not appropriate for a swallowing evaluation and is not deemed appropriate for PO intake due to his inability to handle his own secretions. Speech pathology will re-attempt the swallowing evaluation as the patient becomes appropriate. DARLING ADAN Mar 30, 2017 10:13
[2017-03-30] MEDS: cloZAPine 100 MG (CLOZARIL) TAB PO SCH (14:17)
[2017-03-30] MEDS: ATORVASTATIN 20 MG (LIPITOR) TABLET PO SCH (22:39)
[2017-03-30] MEDS: QUEtiapine 200 MG (SEROquel) TAB IMMEDIATE RELEASE PO SCH (22:40)
[2017-03-31] VITALS (12 sets, daily range): BP systolic 108–140; BP diastolic 67–115
[2017-03-31] MEDS ORDERED: HALOPERIDOL 5 MG/ML (HALDOL) AMP ONE ×2 (01:44→02:07)
[2017-03-31] MEDS: D5W 1000 ML IV SOLUTION 1,000 ML IV SCH ×3 (03:30→17:16)
[2017-03-31] MEDS: PIPERACILLIN/TAZOBACTAM 4.5 GM/D5W 100 ML IVPB IV SCH ×6 (06:33→20:45)
--- NOTE | 2017-03-31 07:43 | Progress Note-Hospitalist ---
Subjective HPI/CC On Admission Date Seen by Provider: Mar 31, 2017 Time Seen by Provider: 07:30 CC: Pneumonia HPI: This is a severe MR patient of Dr Marroquin who presents to ER w/wheezing after completing Bactrim for URI. Apparently he had worsened and was admitted to [facility] but upon further evaluation he was a Dr Marroquin patient so I have taken him on the Hospitalist service. no hx obtainable. Dr Lam was consulted. Subjective/Events-last exam Pt states he is "feeling fine." No complaints. Awake and alert but confused. Objective Exam Vital Signs Vital Sign - Last 12Hours 03/25/17 03/25/17 03/27/17 11:12 11:15 09:00 Temp 98.0 Pulse 112 Resp 24 B/P (MAP) 144/108 (120) Pulse Ox 96 O2 Delivery OxyMask O2 Flow Rate 8.00 FiO2 100 Capillary Refill : Less Than 3 SecondsLess Than 3 Seconds General Appearance: No Apparent Distress, Chronically ill Respiratory: Lungs Clear, No Respiratory Distress Cardiovascular: No Murmur, Tachycardia Gastrointestinal: Normal Bowel Sounds, Non Tender, Soft Extremity: Non Tender, No Swelling Neurologic/Psychiatric: Alert, Other (knows self, otherwise disoriented) Results/Procedures Lab Laboratory Tests 03/31/17 07:54 Assessment/Plan Assessment and Plan Assess & Plan/Chief Complaint acute respiratory failure Diagnosis/Problems Diagnosis/Problems (1) Acute respiratory failure Assessment & Plan: Extubated 03/29, tolerating well Pulm consulted, appreciate recs Pt now a DNR/DNI- will not reintubate Court appointed guardian established who agreed with extubation As doing relatively well off vent, will continue abx Will get swing bed eval Qualifiers: Qualified Codes: J96.02 - Acute respiratory failure with hypercapnia (2) Pneumonia Status: Acute Assessment & Plan: Continue on Zosyn Sputum showed normal benjamín WBC elevated today, will trend No fever Qualifiers: Qualified Codes: J18.9 - Pneumonia, unspecified organism (3) Seizure disorder Status: Acute Assessment & Plan: Continue Keppra (4) Mental retardation Status: Chronic Assessment & Plan: Court appointed guardian in place Unsure of baseline Caregivers at bedside today report he is normally ambulatory (5) Hypokalemia Assessment & Plan: Replaced per protocol (6) Hypomagnesemia Assessment & Plan: replaced per protocol (7) Cervical spine fracture Assessment & Plan: Discussed with Dr. Dobson who reported appears stable and no intervention necessary Will see, appreciate recs Qualifiers: Qualified Codes: S12.691A - Other nondisplaced fracture of seventh cervical vertebra, initial encounter for closed fracture CYNTHIA FAN MD Mar 31, 2017 7:43 am
[2017-03-31] MEDS ORDERED: HALOPERIDOL 5 MG/ML (HALDOL) AMP IM PRN (07:45)
[2017-03-31 08:02] LABS: BASOPHILS # (AUTO) 0.1 10^3/uL (0.0-0.1); BASOPHILS % (AUTO) 0 % (0-10); EOSINOPHILS # (AUTO) 0.1 10^3/uL (0.0-0.3); EOSINOPHILS % (AUTO) 1 % (0-10); HEMATOCRIT 42 % (40-54); LYMPHOCYTES % (AUTO) 15 % (12-44); MEAN CORPUSCULAR HEMOGLOBIN 26 PG (25-34); MEAN CORPUSCULAR HGB CONC 34 G/DL (32-36); MEAN CORPUSCULAR VOLUME 77 FL (80-99); MEAN PLATELET VOLUME 9.9 FL (7.4-10.4); MONOCYTES # (AUTO) 1.4 X 10^3 (0.0-1.0); MONOCYTES % (AUTO) 10 % (0-12); NEUTROPHILS % (AUTO) 74 % (42-75); PLATELET COUNT 299 10^3/uL (130-400); RED CELL DISTRIBUTION WIDTH 17.6 % (10.0-14.5); WHITE BLOOD COUNT 13.5 10^3/uL (4.3-11.0)
[2017-03-31 08:29] LABS: BUN/CREATININE RATIO 14; CALCIUM 9.5 MG/DL (8.5-10.1); CARBON DIOXIDE 23 MMOL/L (21-32); CHLORIDE 100 MMOL/L (98-107); CREATININE SERUM 0.64 MG/DL (0.60-1.30); GFR ESTIMATED > 60; GLUCOSE 83 MG/DL (70-105); POTASSIUM 3.7 MMOL/L (3.6-5.0); SODIUM 138 MMOL/L (135-145)
[2017-03-31] MEDS: guaiFENesin (MUCINEX) 600 MG TAB PO SCH ×2 (09:00→20:48)
[2017-03-31] MEDS: OXYBUTYNIN (DITROPAN) 5 MG TAB PO SCH ×2 (09:00→20:47)
[2017-03-31] MEDS: D5W IV SCH ×2 (10:56→20:47)
[2017-03-31] MEDS: FAMOTIDINE 20MG/2ML IV (PEPCID) IV SCH ×2 (10:56→20:48)
[2017-03-31] MEDS: LEVETIRACETAM IV SCH ×2 (10:56→20:47)
--- NOTE | 2017-03-31 13:53 | ST Dysphagia Evaluation ---
Speech Evaluation-General Medical Diagnosis Pneumonia Onset Date: Mar 25, 2017 Therapy Diagnosis Therapy Diagnosis: Mild to Moderate Oropharyngeal Dysphagia Precautions Precautions: Aspiration Precautions/Isolations: Seizure, Fall Prevention, Standard Precautions Referral Referring Physician: Dr. Emperatriz Zhu Reason for Referral: Evaluation/Treatment Clinical Bedside Swallowing Evaluation Medical History Pertinent Medical History: GERD, HTN, Smoking MR, Schizophrenia, Seizure Disorder Current History The patient was recently admitted with a diagnosis of pneumonia. Reviewed History: Yes Speech PLF/Current-Dysphagia Prior Level of Function The patient was unable to provide prior level of function due to his current cognitive ability. Subjective The patient was laying in bed, eyes closed upon entrance. The clinician contacted the patient's caregiver (per request) to schedule an appropriate time to complete the dysphagia evaluation as the caregiver wishes to be present. With the aid on the in-room sitter, the patient was repositioned upright in bed (following maximum verbal prompts). Once repositioned, the patient continued to require maximum, consistent verbal prompting for appropriate alertness levels. Cognitive Status Patient Orientation: Person Oral Motor Skills Dentition: Edentalous Ability to Follow Directions: Poor The patient is currently NPO pending the results of the swallowing evaluation. Oral Expression Ability: Severe Impairment Voice Voice Phonatory-Based Quality: Glottal Ordonez Voice Pitch: Normal Voice Loudness: Normal Face Facial Symmetry: Symmetrical (No overt facial droop was present at baseline.) Oral-Facial Assessment Oral-Facial Dentition: Normal Labial Seal Description: Normal Smile: Normal The patient did not follow additional oral motor requests at this time. Dysphagia Evaluation Consistencies Presented: Thin Liquid (Teaspoon, straw drink), Pureed Oral Phase: Anterior Spillage The patient demonstrated anterior oral spillage of thin liquids via teaspoon and straw sip. Pharyngeal Phase: Multiple Swallow Attempts, Delayed Laryngeal Elevation, Delayed Swallow The patient demonstrated several, audible swallow attempts per bolus. Additionally, the patient displayed a delayed swallow response in correlation to bolus material presented. - To note, the patient demonstrates a cough at baseline, prior to bolus trials. The patient's cough did not increase in frequency or intensity throughout the session or in correlation to bolus trials. - Thin Liquid (teaspoon): No signs/symptoms of aspiration were demonstrated with single teaspoon sips of thin liquid (eight). - Thin Liquid (via straw): The patient demonstrated a delayed cough following one of ten straw sips of thin liquid. - Puree: No signs/symptoms of aspiration were demonstrated with multiple puree boluses (2 ounces total). The patient demonstrated fatigue (closing eyes, slipping downward in bed, rolling away from the clinician) following limited oral trials noted above. Due to the patient's fatigue and refusal, additional bolus trials could not be completed. Maximum verbal prompting from the clinician and the patient's caregiver were required for limited, intermittent participation. While no signs/symptoms of aspiration were demonstrated with trials of puree or thin liquid via teaspoon, the patient continues to demonstrate fatigue and reduced cooperation with limited trials. The patient is appropriate for thin liquids (via teaspoon) and puree, however, this clinician is hesitant towards his ability to meet his daily nutritional needs with PO intake alone, as he ceased intake following two ounces of puree. This information was discussed and shared with the patient's caregiver, who consistently verbalized comprehension and agreed with the clinician's findings and recommendations. The clinician stated to the caregiver that the patient must remain alert and cooperative throughout feeding attempts or PO intake cannot be continued. Dietary Recommendations: Pureed Liquid Recommendations: Thin (Via Teaspoon) Swallowing Precautions: Decreased Bolus 1/4 Tsp, Oral Supervision Staff, Small Bites and Sips, Sitting 90 Degrees 30 Post Intake - Medication crushed and placed in puree consistencies for administration. - 1:1 feeding assistance at all attempts of PO. - No PO intake if the patient is fatigued or uncooperative. - Upright, 90 degrees, for all PO. - If signs/symptoms of aspiration or laryngeal penetration (coughing, throat clearing, wet voice, watery eyes) are experiencing throughout PO. Cease PO intake and contact Speech Pathology immediately. Dysphagia Evaluation Summary The patient demonstrates mild to moderate oropharyngeal dysphagia characterized by reduced labial strength, decreased lingual coordination, and a delayed pharyngeal swallow onset in the presence of bolus material. The patient continues to demonstrate reduced cooperation and fatigue, completing a limited assessment on this date. Barriers to Learning Cognition, Participation Speech Short Term Goals Short Term Goals Short Term Goals 1. The patient will tolerate trials of the least restrictive diet without signs/ symptoms of aspiration or laryngeal penetration. Time Frame-STG: Four Days Speech Borematic Machine Operator Goals Borematic Machine Operator Goals 1. The patient will consume the least restrictive diet without signs/symptoms of aspiration or laryngeal penetration. 2. The patient will consume a complete meal with moderate verbal prompting from caregiver or staff for participation. Time Frame: Five Days Speech-Plan Treatment Plan Speech Therapy Treatment Plan: Continue Plan of Care Continue skilled speech pathology to target continued swallowing safety, increased participation, and safe PO intake. Treatment Duration: Apr 06, 2017 Frequency: 3 times per week Estimated Hrs Per Day: .25 hour per day Rehab Potential: Poor Safety Risks/Education Teaching Recipient: Patient, Primary Caregiver Teaching Methods: Discussion Response to Teaching: Verbalize Understanding (Caregiver) Education Topics Provided: Signs/Symptoms of Aspiration, Necessity of Participation and Alertness, Recommendations Time Speech Therapy Time In: 10:00 Speech Therapy Time Out: 10:30 Total Billed Time: 30 Billed Treatment Time 1, DARLING PATE Mar 31, 2017 13:53
--- NOTE | 2017-03-31 15:13 | Physical Therapy Evaluation ---
PT Evaluation-General Medical Diagnosis Admission Date Mar 25, 2017 at 14:30 Medical Diagnosis: Pneumonia Onset Date: Mar 25, 2017 Therapy Diagnosis Therapy Diagnosis: impaired mobility, endurance Height/Weight Height (Feet): 5 Height (Inches): 9.00 Weight (Pounds): 184 Weight (Ounces): 3.0 Precautions Precautions/Isolations: Seizure, Fall Prevention, Standard Precautions Weight Bear Status Right Lower Extremity: Right Weight Bearing/Tolerated Left Lower Extremity: Left Weight Bearing/Tolerated Referral Physician: Emperatriz Zhu MD Reason for Referral: Evaluation/Treatment Medical History Pertinent Medical History: GERD, HTN, Smoking Additional Medical History high cholesterol, seizure disorder, chronic constipation, MR, schizophrenia, depression, violent behavior Current History patient went to ER with wheezing, had upper respiratory infection Reviewed History: Yes Social History Home: Patient is an unreliable historian but he said he lived in a senior living Prior/Core FIM Prior Level of Function Functional [place] Measure 0=Not Assessed/NA 4=Minimal Assistance 1=Total Assistance 5=Supervision or Setup 2=Maximal Assistance 6=Modified [place] 3=Moderate Assistance 7=Complete [place] unknown PT Evaluation-Current Subjective Patient in bed pre tx, he has no complaints of pain. He has a sitter in his room. Patient needs a lot of encouragement to participate, two nurse aids and therapy all have to encourage him to sit at the edge of the bed and ambulate. Pt/Family Goals to increase endurance and ambulation Objective Patient Orientation: Confused, Unable to Assess Patient doesnt really follow directions, distracts easily. ROM/Strength ROM Lower Extremities NT Strength Lower Extremities NT Neuromuscular (Tone, Coordination, Reflexes) NT Sensory Vision: Wears Glasses Transfers Functional [place] Measure 0=Not Assessed/NA 4=Minimal Assistance 1=Total Assistance 5=Supervision or Setup 2=Maximal Assistance 6=Modified [place] 3=Moderate Assistance 7=Complete [place] Transfers (B, C, W/C) (FIM): 4 Scootin Rollin Supine to/from Sit: 4 Sit to/from Stand: 4 Patient performs bed mobility and transfers with min assist. He is impulsive, does not follow directions, and has poor safety awareness. Gait Mode of Locomotion: Walk Anticipated Mode of Locomotion: Walk Gait (FIM): 2 Distance: 100' Gait Level of Assist: 4 Gait Persons Needed: 1 Gait Assistive Device: FWW Comments/Gait Description Patient can ambulate 100' with a rolling walker with min assist. Patient needs constantly redirected. He tends to have poor heel strike and slightly scissors. Balance Sitting Static: Fair Sitting Dynamic: Fair Standing Static: Poor Standing Dynamic: Poor Treatment Patient only performed bed mobility, transfers, and ambulation. Further testing could not be performed because patient does not follow directions. Assessment/Needs Patient has impaired mobility, endurance, balance. He is impulsive, needs constant redirection, and encouragement. Patient is a high fall risk. Rehab Potential: Poor PT Short Term Goals Short Term Goals Time Frame: Apr 07, 2017 Transfers (B,C,W/C) (FIM): 5 Gait (FIM): 2 Gait Distance Comment: 120' Gait Level of Assist: 4 (CGA) Gait Assistive Device: FWW PT Plan Problem List Problem List: Activity Tolerance, Functional Strength, Safety, Balance, Gait, Transfer, Bed Mobility, ROM Treatment/Plan Treatment Plan: Continue Plan of Care Treatment Plan: Bed Mobility, Education, Functional Activity Shante, Functional Strength, Gait, Safety, Therapeutic Exercise, Transfers Treatment Duration: Apr 07, 2017 Frequency: 6 times per week Estimated Hrs Per Day: .25 hour per day (15-30') Patient and/or Family Agrees t: Yes Safety Risks/Education Patient Education: Gait Training, Transfer Techniques, Correct Positioning, Safety Issues Teaching Recipient: Patient Teaching Methods: Demonstration, Discussion Response to Teaching: Reinforcement Needed Discharge Recommendations Plan Patient will perform bed mobility and transfer training, balance and endurance training, functional strengthening, stair training, gait training, to improve functional mobility and independence at home. Therapy D/C Recommendations: Home w/ Family Support, Long Term Placement, Nursing Home (TCU/NH) Time/GCodes Time In: 1445 Time Out: 1500 Total Billed Treatment Time: 15 Total Billed Treatment 1 visit [facility] 15' RAJI GOMEZ PT Mar 31, 2017 15:13
[2017-03-31] MEDS: cloZAPine 100 MG (CLOZARIL) TAB PO SCH ×2 (15:32→20:47)
--- NOTE | 2017-03-31 19:42 | Consultation ---
History of Present Illness History of Present Illness Patient Consulted On(magalys/time) 03/31/17 19:34 Date Seen by Provider: Mar 31, 2017 Time Seen by Provider: 19:34 Reason for Visit: Evauate for spinal fracture History of Present Illness 47 y/o white male with mental retardation admitted to hospital, several days ago. I was requested to evaluate for cervical spine fracture. He is extremely poor historian. He says his neck is sore. But not painful to move. He has no real complaints. Allergies and Home Medications Allergies Coded Allergies: fluoxetine (Verified Allergy, Unknown, 03/05/17) Home Medications Atorvastatin Calcium 20 Mg Tablet, 20 MG PO HS, (Reported) Benztropine Mesylate 1 Mg Tablet, 1 MG PO TID, (Reported) Clonazepam 2 Mg Tablet, 1 MG PO 1500, (Reported) Clonazepam 2 Mg Tablet, 3 MG PO HS, (Reported) Clozapine 100 Mg Tablet, 300 MG PO BID, (Reported) Clozapine 100 Mg Tablet, 200 MG PO 1500, (Reported) Divalproex Sodium 500 Mg Tab.er.24h, 2,000 MG PO DAILY, (Reported) Docusate Sodium 100 Mg Capsule, 100 MG PO BID, (Reported) Folic Acid 1 Mg Tablet, 0.5 MG PO DAILY, (Reported) Haloperidol 2 Mg Tablet, 2 MG PO DAILY, (Reported) Lactulose 10 Gm/15 Ml Solution, 30 ML PO BID, (Reported) Levetiracetam 500 Mg Tablet, 500 MG PO BID, (Reported) Loratadine 10 Mg Tablet, 10 MG PO DAILY, (Reported) Metoprolol Succinate 25 Mg Tab.er.24h, 25 MG PO DAILY, (Reported) Johnson 3 Polyunsat Fatty Acids 1,000 Mg Cap, 1,000 MG PO BIDAC, (Reported) Oxybutynin Chloride 5 Mg Tablet, 5 MG PO BID, (Reported) Pantoprazole Sodium 40 Mg Tablet.dr, 40 MG PO DAILY, (Reported) Polyethylene Glycol 3350 17 Gm Powd.pack, 17 GM PO DAILY, (Reported) Quetiapine Fumarate 200 Mg Tablet, 200 MG PO HS, (Reported) Vortioxetine Hydrobromide 10 Mg Tablet, 10 MG PO DAILY, (Reported) Past [id number] Hx Patient Social History Alcohol Use: Denies Use Recreational Drug Use: No Smoking Status: Current Everyday Smoker Type Used: Cigarettes 2nd Hand Smoke Exposure: No Recent Foreign Travel: No Contact w/Someone Who Travel: No Recent Infectious Disease Expo: No Recent Hopitalizations: No Physical Abuse: No Sexual Abuse: No Immunizations Up To Date Tetanus Booster (TDap): More than 5yrs Date of Influenza Vaccine: Dec 06, 2016 Seasonal Allergies Seasonal Allergies: No Surgeries History of Surgeries: No (UNKNOWN) Respiratory History of Respiratory Disorde: Yes (UNKNOWN) Respiratory Disorders: Pneumonia Cardiovascular History of Cardiac Disorders: Yes Cardiac Disorders: High Cholesterol, Hypertension Neurological History of Neurological Disord: Yes Neurological Disorders: Seizure Disorder Genitourinary History of Genitourinary Disor: No (UNKNOWN) Gastrointestinal History of Gastrointestinal Di: Yes Gastrointestinal Disorders: Gastroesophageal Reflux, Chronic Constipation Musculoskeletal History of Musculoskeletal Dis: No (UNKNOWN) Endocrine History of Endocrine Disorders: No (UNKNOWN - PT IS MR) HEENT History of HEENT Disorders: No (UNKNOWN) Cancer History of Cancer: No (UNKNOWN) Psychosocial History of Psychiatric Problem: Yes (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) Behavioral Health Disorders: Schizophrenia, Violent Behavior, Depression Suicide Risk Score: 0 Integumentary History of Skin or Integumenta: Yes Skin/Integumentary Disorders: Psoriasis Blood Transfusions History of Blood Disorders: No (UNKNOWN) Family Medical History Family Medial History: Patient reports no known family medical history. Review of Systems-General Constitutional: no symptoms reported EENTM: no symptoms reported Respiratory: cough Cardiovascular: no symptoms reported Gastrointestinal: no symptoms reported Psychiatric/Neurological: No Symptoms Reported Physical Exam-General Problems Physical Exam Vital Signs Vital Sign - Last 12Hours 03/25/17 03/25/17 03/27/17 11:12 11:15 09:00 Temp 98.0 Pulse 112 Resp 24 B/P (MAP) 144/108 (120) Pulse Ox 96 O2 Delivery OxyMask O2 Flow Rate 8.00 FiO2 100 Capillary Refill : Less Than 3 SecondsLess Than 3 Seconds General Appearance: no apparent distress Neck: non-tender, supple, normal inspection, limited range of motion Respiratory: no respiratory distress, no accessory muscle use Cardiovascular: regular rate, rhythm Back: normal inspection, no CVA tenderness, no vertebral tenderness Extremities: normal range of motion, non-tender, normal inspection, no pedal edema Neurologic/Psychiatric: no motor/sensory deficits, alert Skin: normal color Lymphatic: no adenopathy Comments CT scan of C-spine from 03/25/17 shows small avulsion fracture of anterior osteophyte of C7, but doesn't involve the body significantly or compromise the integrity of the spinal unit. There is no canal compromise. Assessment/Plan Assessment/Plan Admission Diagnosis/Plan C7 Anterior osteophyte fracture without cord injury Mental retardation Plan: this is a tough situation, the cautious thing to do would be MRI for ligamentous and disk evaluation, but him holding still or cooperating for any such diagnostic or even treatment afterwards is impossible and most likely unwarrented. There for, as his is neuro intact, with stable spinal injury that is not terribly amendable to spinal orthosis, his current situation would dictate that observation is the most appropriate treatment at this point in Mr Duran. I would be happy to see him again if the situation dictates the need and appreciate the opportunity to assist in his care. Clinical Quality Measures DVT/VTE Risk/Contraindication: Risk Factor Score Per Nursin RFS Level Per Nursing on Admit: 4+=Very High IFTIKHAR MERRITT MD Mar 31, 2017 7:42 pm
[2017-03-31] MEDS: RT-ALBUTEROL/IPRATROPIUM 3 ML (DUONEB) VIAL INH SCH (20:33)
[2017-03-31] MEDS: BENZTROPINE MESYLATE 1 MG (COGENTIN) TAB PO SCH (20:47)
[2017-03-31] MEDS: ATORVASTATIN 20 MG (LIPITOR) TABLET PO SCH (20:47)
[2017-03-31] MEDS: QUEtiapine 200 MG (SEROquel) TAB IMMEDIATE RELEASE PO SCH (20:47)
[2017-04-01] VITALS: BP 107/74
[2017-04-01] MEDS: D5W 1000 ML IV SOLUTION 1,000 ML IV SCH (03:41)
[2017-04-01 04:00] VITALS: BP 122/75
[2017-04-01] MEDS: PIPERACILLIN/TAZOBACTAM 4.5 GM/D5W 100 ML IVPB IV SCH ×2 (05:11)
--- NOTE | 2017-04-01 05:29 | Pulmonary Progress Note ---
Subjective Time Seen by Provider: 05:29 Subjective/Events-last exam No complications noted. Exam Exam Vital Signs Date Time Temp Pulse Resp B/P (MAP) Pulse Ox O2 Delivery O2 Flow Rate FiO2 04/01/17 04:00 97.0 101 20 122/75 (91) 94 Room Air 04/01/17 00:00 99.6 114 24 107/74 (85) 91 Room Air 03/31/17 20:33 90 Room Air 03/31/17 20:00 Room Air 03/31/17 19:54 99.6 114 14 108/72 (84) 94 Room Air 03/31/17 16:45 90 Room Air 03/31/17 16:45 132 90 03/31/17 16:00 93 Room Air 03/31/17 15:49 99.5 132 20 109/67 (81) 93 Room Air 03/31/17 12:00 99.3 140 20 140/74 (96) 93 Room Air 03/31/17 09:45 101.1 131 20 115/79 (91) 100 Room Air 03/31/17 08:00 99.0 120 16 111/74 (86) 96 Room Air 03/31/17 08:00 Room Air 03/31/17 06:00 123 127/106 (113) 97 Room Air I & O 04/01/17 07:00 Intake Total 780 ml Balance 780 ml General Appearance: No Apparent Distress, Chronically ill HEENT: TMs Normal, Pharynx Normal Respiratory: Lungs Clear, No Respiratory Distress Cardiovascular: No Murmur, Tachycardia Capillary Refill: Less Than 3 Seconds Extremity: Non Tender, No Swelling Neurologic/Psychiatric: Alert, Other (knows self, otherwise disoriented) Skin: Normal Color, Warm/Dry Lymphatic: No Adenopathy Results Lab Laboratory Tests 03/31/17 07:54 Assessment/Plan Assessment/Plan -Acute bilateral pneumonia with hypoxemia -Zosyn -anderson culture negative Acute respiratory failure -Pt extubated and is now DNR/DNI Hypernatremia -IVF Hx of severe MR Unresponsive 232 Clinical Quality Measures DVT/VTE Risk/Contraindication: Risk Factor Score Per Nursin RFS Level Per Nursing on Admit: 4+=Very High JESSICA LEÓN DO Apr 01, 2017 05:29
[2017-04-01] MEDS: RT-ALBUTEROL/IPRATROPIUM 3 ML (DUONEB) VIAL INH SCH (06:07)
[2017-04-01 06:11] LABS: BASOPHILS % (AUTO) 0 % (0-10); EOSINOPHILS # (AUTO) 0.2 10^3/uL (0.0-0.3); EOSINOPHILS % (AUTO) 2 % (0-10); HEMATOCRIT 39 % (40-54); HEMOGLOBIN 13.2 G/DL (13.3-17.7); LYMPHOCYTES # (AUTO) 2.2 X 10^3 (1.0-4.0); LYMPHOCYTES % (AUTO) 24 % (12-44); MEAN CORPUSCULAR HEMOGLOBIN 26 PG (25-34); MEAN CORPUSCULAR HGB CONC 34 G/DL (32-36); MEAN CORPUSCULAR VOLUME 77 FL (80-99); MEAN PLATELET VOLUME 9.9 FL (7.4-10.4); MONOCYTES # (AUTO) 1.2 X 10^3 (0.0-1.0); MONOCYTES % (AUTO) 14 % (0-12); NEUTROPHILS # (AUTO) 5.3 X 10^3 (1.8-7.8); NEUTROPHILS % (AUTO) 60 % (42-75); PLATELET COUNT 313 10^3/uL (130-400); RED BLOOD COUNT 5.04 10^6/uL (4.35-5.85); RED CELL DISTRIBUTION WIDTH 17.4 % (10.0-14.5); WHITE BLOOD COUNT 8.9 10^3/uL (4.3-11.0)
[2017-04-01 06:35] LABS: BUN/CREATININE RATIO 13; CALCIUM 9.1 MG/DL (8.5-10.1); CARBON DIOXIDE 26 MMOL/L (21-32); CHLORIDE 100 MMOL/L (98-107); CREATININE SERUM 0.67 MG/DL (0.60-1.30); GFR ESTIMATED > 60; GLUCOSE 138 MG/DL (70-105); POTASSIUM 3.5 MMOL/L (3.6-5.0); SODIUM 137 MMOL/L (135-145)
[2017-04-01 07:47] VITALS: BP 113/73
[2017-04-01] MEDS: guaiFENesin (MUCINEX) 600 MG TAB PO SCH (08:09)
[2017-04-01] MEDS: cloZAPine 100 MG (CLOZARIL) TAB PO SCH (08:11)
[2017-04-01] MEDS: BENZTROPINE MESYLATE 1 MG (COGENTIN) TAB PO SCH (08:11)
[2017-04-01] MEDS: OXYBUTYNIN (DITROPAN) 5 MG TAB PO SCH (08:11)
--- NOTE | 2017-04-01 08:50 | Discharge Summary-Hospitalist ---
Diagnosis/Chief Complaint Date of Admission Mar 25, 2017 at 14:30 Date of Discharge Discharge Date: Apr 01, 2017 Admission Diagnosis Assessment: Bilateral pneumonia Severe MR Chronic debility Mental illness with aggression Discharge Diagnosis acute respiratory failure (1) Acute respiratory failure Assessment & Plan: Extubated 03/29, tolerating well Pulm consulted, appreciate recs Pt now a DNR/DNI- will not reintubate Court appointed guardian established who agreed with extubation As doing relatively well off vent, will continue abx Guardian now agreeable to sing bed stay Will DC to swing bed status today (2) Pneumonia Status: Acute Assessment & Plan: Continue on Zosyn- will finish today Febrile yesterday- if spikes again will extend abx lengh and reculture Sputum showed normal benjamín (3) Seizure disorder Status: Acute Assessment & Plan: Continue Keppra (4) Mental retardation Status: Chronic Assessment & Plan: Court appointed guardian in place Unsure of baseline but mentation improved significant today Caregivers at bedside today report he is normally ambulatory (5) Hypokalemia Assessment & Plan: Replaced per protocol (6) Hypomagnesemia Assessment & Plan: replaced per protocol (7) Cervical spine fracture Assessment & Plan: Discussed with Dr. Dobson who reported appears stable and no intervention necessary Discharge Summary Consultations Dr. Lam- Elicia/CC Discharge Physical Examination Allergies: Coded Allergies: fluoxetine (Verified Allergy, Unknown, 03/05/17) Vitals & I&Os Vital Signs Date Time Temp Pulse Resp B/P (MAP) Pulse Ox O2 Delivery O2 Flow Rate FiO2 04/01/17 07:47 97.5 110 22 113/73 (86) 94 Room Air 03/31/17 04:00 3.00 03/29/17 08:35 45 Hospital Course Mr Duran presented to the hospital for shortness of breath and was found to have bilateral pneumonia. He was admitted to the ICU and ultimately necessitated intubation to support his respiratory status. He was unable to be weaned and given his overall prognosis decision was mad with his guardian to palliatively extubate and make a DNR/DNI. He tolerated extubation well and was thus plan of care was expanded beyond just comfort measures. He is to discharge to swing today for continued therapy. Labs (last 24 hrs) Laboratory Tests 04/01/17 05:40: White Blood Count 8.9, Red Blood Count 5.04, Hemoglobin 13.2L, Hematocrit 39L, Mean Corpuscular Volume 77L, Mean Corpuscular Hemoglobin 26, Mean Corpuscular Hemoglobin Concent 34, Red Cell Distribution Width 17.4H, Platelet Count 313, Mean Platelet Volume 9.9, Neutrophils (%) (Auto) 60, Lymphocytes (%) (Auto) 24, Monocytes (%) (Auto) 14H, Eosinophils (%) (Auto) 2, Basophils (%) (Auto) 0, Neutrophils # (Auto) 5.3, Lymphocytes # (Auto) 2.2, Monocytes # (Auto) 1.2H, Eosinophils # (Auto) 0.2, Basophils # (Auto) 0.0, Sodium Level 137, Potassium Level 3.5L, Chloride Level 100, Carbon Dioxide Level 26, Anion Gap 11, Blood Urea Nitrogen 9, Creatinine 0.67, Estimat Glomerular Filtration Rate > 60, BUN/ Creatinine Ratio 13, Glucose Level 138H, Calcium Level 9.1 Microbiology 03/25/17 Blood Culture - Final, Complete No growth 03/27/17 Gram Stain - Final, Complete 03/27/17 Bronchial Culture - Final, Complete No growth Pending Labs Laboratory Tests 04/01/17 05:40: White Blood Count 8.9, Red Blood Count 5.04, Hemoglobin 13.2, Hematocrit 39, Mean Corpuscular Volume 77, Mean Corpuscular Hemoglobin 26, Mean Corpuscular Hemoglobin Concent 34, Red Cell Distribution Width 17.4, Platelet Count 313, Mean Platelet Volume 9.9, Neutrophils (%) (Auto) 60, Lymphocytes (%) (Auto) 24, Monocytes (%) (Auto) 14, Eosinophils (%) (Auto) 2, Basophils (%) (Auto) 0, Neutrophils # (Auto) 5.3, Lymphocytes # (Auto) 2.2, Monocytes # (Auto) 1.2, Eosinophils # (Auto) 0.2, Basophils # (Auto) 0.0, Sodium Level 137, Potassium Level 3.5, Chloride Level 100, Carbon Dioxide Level 26, Anion Gap 11, Blood Urea Nitrogen 9, Creatinine 0.67, Estimat Glomerular Filtration Rate > 60, BUN/ Creatinine Ratio 13, Glucose Level 138, Calcium Level 9.1 Discharge Home Medications: Active Scripts Active Reported Trintellix (Vortioxetine Hydrobromide) 10 Mg Tablet 10 Mg PO DAILY Clozapine 100 Mg Tablet 200 Mg PO 1500 Clonazepam 2 Mg Tablet 3 Mg PO HS Quetiapine Fumarate 200 Mg Tablet 200 Mg PO HS Levetiracetam 500 Mg Tablet 500 Mg PO BID Clozapine 100 Mg Tablet 300 Mg PO BID Oxybutynin Chloride 5 Mg Tablet 5 Mg PO BID Loratadine 10 Mg Tablet 10 Mg PO DAILY Fish Oil 1,000 mg Capsule ([place] 3 Polyunsat Fatty Acids) 1,000 Mg Cap 1,000 Mg PO BIDAC Polyethylene Glycol 3350 17 Gm Powd.pack 17 Gm PO DAILY Folic Acid 1 Mg Tablet 0.5 Mg PO DAILY Clonazepam 2 Mg Tablet 1 Mg PO 1500 Metoprolol Succinate 25 Mg Tab.er.24h 25 Mg PO DAILY Atorvastatin Calcium 20 Mg Tablet 20 Mg PO HS Haloperidol 2 Mg Tablet 2 Mg PO DAILY Docusate Sodium 100 Mg Capsule 100 Mg PO BID Divalproex Sodium ER (Divalproex Sodium) 500 Mg Tab.er.24h 2,000 Mg PO DAILY Lactulose 10 Gm/15 Ml Solution 30 Ml PO BID Pantoprazole Sodium 40 Mg Tablet.dr 40 Mg PO DAILY Benztropine Mesylate 1 Mg Tablet 1 Mg PO TID Instructions to patient/family Please see electronic discharge instructions given to patient. Clinical Quality Measures DVT/VTE Risk/Contraindication: Risk Factor Score Per Nursin RFS Level Per Nursing on Admit: 4+=Very High Copy Copies To 1: JESSICA LAM DO; JORDEN WYLIE MD Problem Qualifiers (1) Acute respiratory failure: Respiratory failure complication: hypercapnia Qualified Codes: J96.02 - Acute respiratory failure with hypercapnia (2) Pneumonia: Pneumonia type: due to unspecified organism Laterality: bilateral Lung location: unspecified part of lung Qualified Codes: J18.9 - Pneumonia, unspecified organism (3) Cervical spine fracture: Encounter type: initial encounter Cervical vertebra fracture level: C7 Fracture type: closed Fracture morphology: other fracture Fracture alignment : nondisplaced Qualified Codes: S12.691A - Other nondisplaced fracture of seventh cervical vertebra, initial encounter for closed fracture CYNTHIA FAN MD Apr 01, 2017 08:50
[2017-04-01] MEDS ORDERED: NON-FORMULARY MEDICATION 1 EA EA (Vortioxetine Hydrobromide (Trintellix) 10 MG) PO SCH (09:00)
[2017-04-01] MEDS ORDERED: LEVETIRACETAM 500 MG (KEPPRA) TAB PO SCH (09:00)
[2017-04-01] MEDS ORDERED: FAMOTIDINE 20 MG (PEPCID) TABLET PO SCH (09:00)
== END 2017-04-01 09:11 | disposition swing bed (61) | DRG 208 ==
LOC: EDUNIT# 11:12 → ER 11:14 → 4TH 14:30 → ICU 03-27 08:30 → 4TH 03-31 09:45
PROVIDERS: ADMIT Family Medicine; ATTEND Family Medicine
PROC: 5A1945Z Respiratory Ventilation, 24-96 Consecutive Hours (ICD-10-PCS; principal; 2017-03-27)
PROC: 0B958ZZ Drainage of Right Middle Lobe Bronchus, Via Natural or Artificial Opening Endoscopic (ICD-10-PCS; 2017-03-27)
PROC: 0BD58ZX Extraction of Right Middle Lobe Bronchus, Via Natural or Artificial Opening Endoscopic, Diagnostic (ICD-10-PCS; 2017-03-27)
DX: J18.9 Pneumonia, unspecified organism (principal); F72 Severe intellectual disabilities; J96.01 Acute respiratory failure with hypoxia; J96.02 Acute respiratory failure with hypercapnia; E87.0 Hyperosmolality and hypernatremia; R40.20 Unspecified coma; S12.691A Other nondisplaced fracture of seventh cervical vertebra, initial encounter for closed fracture; G40.909 Epilepsy, unspecified, not intractable, without status epilepticus; Z66 Do not resuscitate; F63.81 Intermittent explosive disorder; F20.9 Schizophrenia, unspecified; F32.9 Major depressive disorder, single episode, unspecified; I10 Essential (primary) hypertension; F17.210 Nicotine dependence, cigarettes, uncomplicated; E78.00 Pure hypercholesterolemia, unspecified; K21.9 Gastro-esophageal reflux disease without esophagitis; K59.09 Other constipation; L40.9 Psoriasis, unspecified; J98.09 Other diseases of bronchus, not elsewhere classified; E87.6 Hypokalemia; E83.42 Hypomagnesemia; X58.XXXA Exposure to other specified factors, initial encounter
CPT/HCPCS: 36415; 70450; 70486; 71045; 71275; 72125; 80048; 80053; 81000; 82550; 82553; 82805; 82962; 83605; 83735; 83874; 84100; 84443; 84484; 85007; 85025; 85027; 85379; 85610; 85730; 86141; 87040; 87070; 87205; 93005; 93041; 94002; 94003; 94150; 94640; 94760; 94799; 96374

== ENCOUNTER 2017-04-01 08:46 | Inpatient (IN) | payer MEDICARE, MEDICAID ==
[~2017-04-01] VITALS: Ht 175.3 cm; Wt 83.5 kg
[~2017-04-01 08:46] MED LIST changes: +ATOR20TA66 PO; +CLOZ100T7 PO; +DIVA500T15 PO; +DOCU100C37 PO; +FOLI1TAB24 PO; +HALO2TAB PO; +LACT10SO PO; +METO-387 PO; +POLY17PO23 PO; +QUET200T57 PO; +VORT10TA PO
[2017-04-01] MEDS ORDERED: SALIVA STIMULANT MOUTH SPRAY (BIOTENE) 1.5 OZ MM PRN (09:30)
[2017-04-01] MEDS ORDERED: ONDANSETRON 4 MG/2 ML (SDV) Z0FRAN IVP PRN (09:30)
[2017-04-01] MEDS ORDERED: ACETAMINOPHEN 500 MG TAB (TYLENOL) PO PRN (09:30)
[2017-04-01] MEDS ORDERED: ATROPINE 1% OPHTHALMIC SOLN 2 ML SL PRN (09:30)
[2017-04-01] MEDS ORDERED: ARTIFICIAL TEARS OINT (LACRI-LUBE) 3.5 GM TUBE OU PRN (09:30)
[2017-04-01] MEDS ORDERED: HALOPERIDOL 5 MG/ML (HALDOL) AMP IM PRN (09:30)
[2017-04-01] MEDS ORDERED: PIPERACILLIN SODIUM/TAZOBACTAM 4.5 GM in D5W 100 ML IVPB 100 ML IV SCH ×2 (09:30→13:00)
[2017-04-01] MEDS ORDERED: meTOprolol 5 MG/5 ML (LOPRESSOR) VIAL IV PRN (09:30)
[2017-04-01] MEDS ORDERED: RT-ALBUTEROL/IPRATROPIUM 3 ML (DUONEB) VIAL INH PRN (09:45)
[2017-04-01] MEDS: SCOPOLAMINE 1.5 MG (TRANSDERM-SCOP) PATCH TOP SCH (11:07)
--- NOTE | 2017-04-01 11:22 | ST Dysphagia Evaluation ---
Speech Evaluation-General Medical Diagnosis Pnuemonia Onset Date: Mar 25, 2017 Therapy Diagnosis Therapy Diagnosis: Moderate Oropharyngeal Dysphagia Precautions Precautions: Aspiration Referral Referring Physician: Dr. Emperatriz Zhu Reason for Referral: Evaluation/Treatment Bedside Clinical Swallowing Evaluation Medical History Pertinent Medical History: GERD, HTN, Smoking MR, Seizure Disorder Current History The patient was recently admitted to [facility] with a diagnosis of pneumonia. The patient was admitted to Swing Bed Status on this date. Reviewed History: Yes Speech PLF/Current-Dysphagia Prior Level of Function The patient is unable to provide prior level of function due to current cognitive ability. The patient was evaluated (limited) as acute status and placed on a limited PO diet of thin liquid (via teaspoon) and puree. Per patient's RN, the patient has done well with all PO intake including consumption of medication whole. Subjective Upon entrance, the patient was found to have his legs out of the left side of the bed. The RN arrived and aided the patient back to bed. The patient demonstrated consistent fatigue, requiring maximum verbal prompts for continued participation and to keep his eyes open. The patient consistently attempted to slide down in bed, requiring prompts to sit upright for PO. Cognitive Status Patient Orientation: Person Oral Motor Skills Dentition: Edentalous Current Food Consistancy: Pureed, Thin Liquids (Via Teaspoon) Ability to Follow Directions: Poor To note, upon entrance the patient has a straw, as well as, a Snickers bar at bedside. The items were removed by the Speech Pathologist due to aspiration risk prior to evaluation. Oral Expression Ability: Severe Impairment Voice Voice Phonatory-Based Quality: Glottal Ordonez Face Facial Symmetry: Symmetrical Oral-Facial Assessment Oral-Facial Dentition: Normal Labial Seal Description: Weak (Bilaterally.) The patient does not follow simple commands to complete oral mechanism examination. Dysphagia Evaluation Consistencies Presented: Thin Liquid (Teaspoon), [place] Thick Liquid (Teaspoon , Straw- Cup was not completed due to patient's inability.), Pureed Oral Phase: Anterior Spillage, Reduced Oral Transit - Anterior bolus loss was noted with thin liquids with teaspoon and straw sip. The patient attempted several "tongue pumps" to move puree posterior in the oral cavity. Pharyngeal Phase: Multiple Swallow Attempts, Reduced Laryngeal Elevation, Delayed Swallow - The patient demonstrated multiple swallows per bolus, as well as, a delayed onset of the pharyngeal swallow response. Funct. Velo/Pharyngeal Symptom: Cough After Swallow - Thin Liquid (via teaspoon): The patient consistently demonstrated a cough following intake of thin liquid. The patient was fatigued, consistently closing eyes throughout the session. - [place]-Thick (teaspoon, straw sip): No signs/symptoms of aspiration were demonstrated with teaspoon or straw drinks of nectar-thick liquid. - Puree: No signs/symptoms of aspiration were demonstrated with multiple (3 ounces) of puree. - The patient appeared less cooperative and more fatigued in comparison to the prior evaluation (the day earlier). The caregiver was not present at bedside, which appeared to improve the patient's motivation throughout the prior evaluation. Dietary Recommendations: Pureed Liquid Recommendations: [place] Consistancy Swallowing Precautions: Decreased Bolus 1/4 Tsp, Oral Supervision Staff, Small Bites and Sips, Sitting 90 Degrees 30 Post Intake Dysphagia Evaluation Summary The patient demonstrates moderate oropharyngeal dysphagia characterized by reduced lingual range of motion and coordination, reduced laryngeal elevation, and delayed onset of the pharyngeal swallow in the presence of bolus material. The patient demonstrated increased fatigue on this date which may be a more true example of his normal state (in absence of a caregiver). At this more fatigued state, the patient demonstrates signs/symptoms of aspiration with thin liquid. The above recommendations were discussed with the RN and transcribed on the patient's in-room white board. Barriers to Learning Cognition, Reduced Participation, Increased Fatigue Speech Short Term Goals Short Term Goals Short Term Goals 1. The patient will tolerate trials of the least restrictive diet without signs/ symptoms of aspiration. Time Frame-STG: Three Days Speech Residential Goals Drilling Field Specialist Goals 1. The patient will tolerate the least restrictive diet without signs/symptoms of aspiration. Time Frame: One Week Speech-Plan Treatment Plan Speech Therapy Treatment Plan: Continue Plan of Care Continue skilled speech pathology to target improved swallowing safety. Treatment Duration: Apr 08, 2017 Frequency: 3 times per week Estimated Hrs Per Day: .25 hour per day Rehab Potential: Guarded Safety Risks/Education Teaching Recipient: Patient Teaching Methods: Discussion Response to Teaching: Unable to Comprehend Education Topics Provided: Results, Recommendations, Plan of Care Time Speech Therapy Time In: 10:00 Speech Therapy Time Out: 10:20 Total Billed Time: 20 Billed Treatment Time Kayla DARLING PATE Apr 01, 2017 11:22
--- NOTE | 2017-04-01 11:49 | Physical Therapy Evaluation ---
PT Evaluation-General Medical Diagnosis Admission Date Apr 01, 2017 at 09:34 Medical Diagnosis: Pnuemonia Onset Date: Mar 25, 2017 Therapy Diagnosis Therapy Diagnosis: Poor activity tolerance, functional mobility, and gait Height/Weight Height (Feet): 5 Height (Inches): 9.00 Weight (Pounds): 184 Weight (Ounces): 3.0 Precautions Precautions/Isolations: Seizure, Fall Prevention, Standard Precautions Pt requires many verbal cues to follow directions. Weight Bear Status Right Lower Extremity: Right Weight Bearing/Tolerated Left Lower Extremity: Left Weight Bearing/Tolerated Referral Physician: Emperatriz Zhu MD Reason for Referral: Evaluation/Treatment Medical History Pertinent Medical History: GERD, HTN, Smoking Additional Medical History High cholesterol, seizure disorder, chronic constipation, MR, schizophrenia, depression, violent behavior Current History Pt presented to ER with wheezing and had URI. Reviewed History: Yes Social History Pt is an unreliable historian and mentioned that he lived in a assisted. Prior/Core FIM Prior Level of Function Functional [place] Measure 0=Not Assessed/NA 4=Minimal Assistance 1=Total Assistance 5=Supervision or Setup 2=Maximal Assistance 6=Modified [place] 3=Moderate Assistance 7=Complete [place] Unknown due to pt poor historian PT Evaluation-Current Subjective Pt is laying on R side in bed and follows directions to proceed with PT after many verbal cues and encouragement. Pain Numeric Pain Scale: 0-No Pain Pt/Family Goals Increased strength and independence with ambulation Objective Patient Orientation: MR ROM/Strength ROM Lower Extremities PROM: WNL gage; pt resisted PT passively moving LE until told to relax. Pt demonstrated limited ankle DF gage but ambulated in hip and knee flexion, which promote ankle DF. Strenght Lower Extremities NT Neuromuscular (Tone, Coordination, Reflexes) Pt demonstrated increased clonus gage in ankles Sensory Vision: Unable to Assess Hearing: Unable to Assess Sensation Lower Extremities NT Transfers Functional [place] Measure 0=Not Assessed/NA 4=Minimal Assistance 1=Total Assistance 5=Supervision or Setup 2=Maximal Assistance 6=Modified [place] 3=Moderate Assistance 7=Complete [place] Transfers (B, C, W/C) (FIM): 3 Scootin Rollin Supine to/from Sit: 2 Sit to/from Stand: 3 Sit to Lying (QC): 2 Lying to Sitting/Side of Bed(Q: 2 Sit to Stand (QC): 3 Chair/Cyv-et-Ovcmw Xfer(QC): 2 Pt required max A x2 during supine to sitting edge of bed and mod A during sit to stand transfer. Gait Does the Patient Walk?: Yes Mode of Locomotion: Walk Anticipated Mode of Locomotion: Walk Gait (FIM): 3 Distance: 150 feet x1 Walk 50 ft with 2 Turns(QC): 2 Walk 150 ft (QC): 2 Gait Level of Assist: 3 Gait Persons Needed: 1 Gait Assistive Device: FWW Comments/Gait Description Pt ambulates with slight scissor gait. BLE are in hip and knee flexion. As pt continued to walk, he became increasingly hunched over the FWW. Cues to stand straiter but patient did not comply. Wheelchair Training Does the Pt Use a Wheelchair?: No Wheel 50 ft with 2 turns (QC): 88 Wheel 150 ft (QC): 88 Balance Sitting Static: Fair Sitting Dynamic: Fair Standing Static: Poor Standing Dynamic: Poor Treatment Pt performed bed mobility, gait training, and PROM testing. Additional testing could not be performed due to pt poor ability to follow direction. Assessment/Needs Due to pt being max A in bed mobility and mod A with gait, pt is at high risk of falling. Pt demonstrated swelling in the R knee. Pt requires many verbal cues in order to follow directions. Rehab Potential: Poor Equipment Needs FWW PT Short Term Goals Short Term Goals Time Frame: Apr 08, 2017 Transfers (B,C,W/C) (FIM): 4 Gait (FIM): 4 Gait Distance Comment: 200 feet Gait Level of Assist: 4 Gait Assistive Device: FWW PT Plan Problem List Problem List: Activity Tolerance, Functional Strength, Safety, Balance, Gait, Transfer, Bed Mobility, ROM Treatment/Plan Treatment Plan: Continue Plan of Care Treatment Plan: Bed Mobility, Education, Functional Activity Shante, Functional Strength, Gait, Safety, Therapeutic Exercise, Transfers Treatment Duration: Apr 08, 2017 Frequency: 6 times per week Estimated Hrs Per Day: .25 hour per day (15-30 min) Patient and/or Family Agrees t: Yes Safety Risks/Education Patient Education: Gait Training, Transfer Techniques, Correct Positioning, Safety Issues Teaching Recipient: Patient Teaching Methods: Demonstration, Discussion Response to Teaching: Unable to Return Demonstration, Unable to Comprehend, Reinforcement Needed Discharge Recommendations Plan Patient will perform bed mobility and transfer training, balance and endurance training, functional strengthening, gait training, and education to improve functional mobility and independence at home. Therapy D/C Recommendations: Home w/ Family Support, Half-Way Placement Equpiment Recommendations-D/C: Front Wheeled Walker Time/GCodes Time In: 1120 Time Out: 1150 Total Billed Treatment Time: 30 Total Billed Treatment 1 visit [facility] 30 min RAJI GOMEZ PT Apr 01, 2017 11:49
[2017-04-01 12:00] VITALS: BP 115/78
[2017-04-01] MEDS: Vortioxetine Hydrobromide (Trintellix) 10 MG PO SCH (14:06)
[2017-04-01] MEDS: BENZTROPINE MESYLATE 1 MG (COGENTIN) TAB PO SCH ×2 (14:08→20:05)
[2017-04-01] MEDS: cloZAPine 100 MG (CLOZARIL) TAB PO SCH ×2 (14:10→20:04)
--- NOTE | 2017-04-01 15:14 | Occupational Therapy Eval ---
OT Evaluation-General/PLF Medical Diagnosis Admission Date Apr 01, 2017 at 09:34 Medical Diagnosis: Pnuemonia Onset Date: Mar 25, 2017 Therapy Diagnosis Therapy Diagnosis: Weakness Height/Weight Height (Feet): 5 Height (Inches): 9.00 Weight (Pounds): 184 Weight (Ounces): 3.0 Precautions Precautions/Isolations: Seizure, Fall Prevention, Standard Precautions Weight Bear Status Weight Bearing Restriction: Weight Bearing/Tolerated Referral Physician: Emperatriz Zhu MD Referral Reason: Activity Tolerance, Evaluation/Treatment, Strengthening/ROM Medical History Pertinent Medical History: GERD, HTN, Smoking Additional Medical History Smoking, MR, Seizure disorder Current History Pt. is poor historian. No caregiver present at this time. Unable to state what his previous status functionally was. Reviewed History: Yes ADL-Prior Level of Function ADL PLOF Comments This therapist is unsure of pt's previous functional status. OT Current Status Subjective Pt. smiles when OT walks in room and states, "your pretty." Appearance Pt. is in bed. Pt. is pleasant throughout treatment. Mental Status/Objective Patient Orientation: MR Attachments: IV Current Upper Extremity ROM Pt. is able to follow the cue of "can you raise your arms?" Pt. is able to flex bilateral shoulders to approximately 15 degrees. ADL-Treatment Functional [place] Measure 0=Not Assessed/NA 4=Minimal Assistance 1=Total Assistance 5=Supervision or Setup 2=Maximal Assistance 6=Modified [place] 3=Moderate Assistance 7=Complete IndependenceIRFPAI Quality Coding Scale 6 Independent with activity with or without an assistive device 5 Patient requires set up or clean up by helper. Patient completes activity by themselves 4 Supervision or touching assist (CGA). Fred provide cues , steadying assist 3 The helper provides less than half the effort to complete the activity 2 The helper provides more than half the effort to complete the activity 1 Dependent. The helper does all the effort to complete an activity 7 Patient refused to complete or attempt activity 9 The patient did not perform the activity before the current illness or injury 88 Not attempted due to Medical conditions or safety concerns Upper Body Dressing (FIM): 1 (Pt.'s shirt is wet from urine when OT assists to side of bed. Pt. does initiate with cues doffing, but only pulls up a little on torso. OT doffs shirt for pt.) Lower Body Dressing (FIM): 1 (OT doffs brief and shorts for pt, as they are wet.) Toileting (FIM): 1 (Pt. is incontinent of urine. Does not seem aware of this.) Toileting Hygiene (QC): 1 Transfers (B, C, W/C) (FIM): 1 (Pt. is Max assist for supine-sit. Pt. requires mod assist of two people to stand. Unknown if this is behavioral or physical. Once standing, pt. is able to take steps to side toward HOB with mod x 2. Max assist for sit-supine.) Other Treatments Pt. is not very verbal. Is pleasant and does make eye contact throughout most of treatment. However, at one point did put his head down and close his eyes. Required cues to open eyes and engage with therapy staff. Pt. is unable to verbalize prior level. Education OT Patient Education: Correct positioning, Purpose of tx/functional activities , Reviewed precautions, Rehab process, Transfer techniques Teaching Recipient: Patient Teaching Methods: Demonstration Response to Teaching: Reinforcement Needed OT Short Term Goals Short Term Goals Time Frame: Apr 08, 2017 Eating(FIM): 3 Grooming(FIM): 3 Transfers (B,C,W/C) (FIM): 4 Additional Short Term Goals: 1-Demonstrate ADL Tasks, 2-Verbalize Understanding , 3-ImproveStrength/Shante 1=Demonstrate adherence to instructed precautions during ADL tasks. 2=Patient will verbalize/demonstrate understanding of assistive devices/ modifications for ADL. 3=Patient will improve strength/tolerance for activity to enable patient to perform ADL's. OT Aircraft Engine Technician Goals Aircraft Engine Technician Goals Time Frame: Apr 15, 2017 Eating (FIM): 5 Eating (QC): 5 Groomin Oral Hygiene (QC): 5 Toileting(FIM): 4 Toileting Hygiene (QC): 4 Transfers (B,C,W/C) (FIM): 4 Toilet/Commode Transfer(FIM): 4 Toilet/Commode Transfer (QC): 4 Additional Goals: 1-Demonstrate ADL Tasks, 2-Verbalize Understanding, 3- ImproveStrength/Shante 1=Demonstrate adherence to instructed precautions during ADL tasks. 2=Patient will verbalize/demonstrate understanding of assistive devices/ modifications for ADL. 3=Patient will improve strength/tolerance for activity to enable patient to perform ADL's. OT Education/Plan Problem List/Assessment Assessment: Decreased Activ Tolerance, Decreased Safety Aware, Decreased UE Strength, Dependent Transfers, Impaired Bed Mobility, Impaired Cognition, Impaired Coordination, Impaired Funct Balance, Impaired I ADL's, Impaired Self- Care Skills, Restricted Funct UE ROM Discharge Recommendations Plan/Recommendations: Continue POC Therapy D/C Recommendations: 24 hr Supervision Comment Unsure of equipment needs, discharge needs, or therapy needs at this time. Will speak with caregiver and swing bed coordinator to make plan for increased strengthening, and to hopefully return pt. to prior level of functional independence. Treatment Plan/Plan of Care Treatment,Training & Education: Yes Patient would benefit from OT for education, treatment and training to promote independence in ADL's, mobility, safety and/or upper extremity function for ADL' s. Plan of Care: ADL Retraining, Functional Mobility, UE Funct Exercise/Act Treatment Duration: Apr 15, 2017 Frequency: 5 times per week Estimated Hrs Per Day: .5 hour per day Agreement: Yes Rehab Potential: Guarded Time/GCodes Start Time: 14:30 Stop Time: 15:00 Total Time Billed (hr/min): 30 Billed Treatment Time 1, EVH x 15minutes, ADL x 15minutes SANTIAGO GUTIÉRREZ OT Apr 01, 2017 15:14
[2017-04-01 16:29] VITALS: BP 117/78
[2017-04-01] MEDS: RT-ALBUTEROL/IPRATROPIUM 3 ML (DUONEB) VIAL INH SCH ×2 (20:00→21:46)
[2017-04-01 20:01] VITALS: BP 102/58
[2017-04-01] MEDS: QUEtiapine 200 MG (SEROquel) TAB IMMEDIATE RELEASE PO SCH (20:04)
[2017-04-01] MEDS: ATORVASTATIN 20 MG (LIPITOR) TABLET PO SCH (20:05)
[2017-04-01] MEDS: guaiFENesin (MUCINEX) 600 MG TAB PO SCH (20:05)
[2017-04-01] MEDS: FAMOTIDINE 20 MG (PEPCID) TABLET PO SCH (20:05)
[2017-04-01] MEDS: OXYBUTYNIN (DITROPAN) 5 MG TAB PO SCH (20:05)
[2017-04-01] MEDS: LEVETIRACETAM 500 MG (KEPPRA) TAB PO SCH (20:05)
[2017-04-02] VITALS: BP_SYST 11; BP_SYST 111; BP_DIAS 75
[2017-04-02 04:00] VITALS: BP 107/81
[2017-04-02 05:44] LABS: BASOPHILS # (AUTO) 0.1 10^3/uL (0.0-0.1); BASOPHILS % (AUTO) 1 % (0-10); EOSINOPHILS # (AUTO) 0.2 10^3/uL (0.0-0.3); EOSINOPHILS % (AUTO) 2 % (0-10); HEMATOCRIT 37 % (40-54); HEMOGLOBIN 12.5 G/DL (13.3-17.7); LYMPHOCYTES # (AUTO) 2.2 X 10^3 (1.0-4.0); LYMPHOCYTES % (AUTO) 26 % (12-44); MEAN CORPUSCULAR HEMOGLOBIN 26 PG (25-34); MEAN CORPUSCULAR HGB CONC 34 G/DL (32-36); MEAN CORPUSCULAR VOLUME 78 FL (80-99); MEAN PLATELET VOLUME 10.5 FL (7.4-10.4); MONOCYTES # (AUTO) 1.2 X 10^3 (0.0-1.0); MONOCYTES % (AUTO) 14 % (0-12); NEUTROPHILS # (AUTO) 4.7 X 10^3 (1.8-7.8); NEUTROPHILS % (AUTO) 57 % (42-75); PLATELET COUNT 333 10^3/uL (130-400); RED BLOOD COUNT 4.77 10^6/uL (4.35-5.85); RED CELL DISTRIBUTION WIDTH 17.2 % (10.0-14.5); WHITE BLOOD COUNT 8.2 10^3/uL (4.3-11.0)
[2017-04-02 06:09] LABS: BUN/CREATININE RATIO 22; CALCIUM 8.8 MG/DL (8.5-10.1); CARBON DIOXIDE 26 MMOL/L (21-32); CHLORIDE 101 MMOL/L (98-107); CREATININE SERUM 0.64 MG/DL (0.60-1.30); GFR ESTIMATED > 60; GLUCOSE 104 MG/DL (70-105); POTASSIUM 3.8 MMOL/L (3.6-5.0); SODIUM 138 MMOL/L (135-145)
[2017-04-02 08:00] VITALS: BP 116/82
--- NOTE | 2017-04-02 09:44 | Physical Therapy Daily Note ---
PT Daily Note-Current Subjective Patient trying to get OOB with telesitter requesting he remain in bed. Pain Numeric Pain Scale: 0-No Pain Location: No Pain Reported Mental Status Patient Orientation: MR Transfers Functional [place] Measure 0=Not Assessed/NA 4=Minimal Assistance 1=Total Assistance 5=Supervision or Setup 2=Maximal Assistance 6=Modified [place] 3=Moderate Assistance 7=Complete IndependenceIRFPAI Quality Coding Scale 6 Independent with activity with or without an assistive device 5 Patient requires set up or clean up by helper. Patient completes activity by themselves 4 Supervision or touching assist (CGA). [place] provide cues , steadying assist 3 The helper provides less than half the effort to complete the activity 2 The helper provides more than half the effort to complete the activity 1 Dependent. The helper does all the effort to complete an activity 7 Patient refused to complete or attempt activity 9 The patient did not perform the activity before the current illness or injury 88 Not attempted due to Medical conditions or safety concerns Transfers (B, C, W/C) (FIM): 5 Scootin Roll Left to Right (QC): 5 Supine to/from Sit: 5 Sit to/from Stand: 5 Sit to Lying (QC): 5 Sit to Stand (QC): 5 Chair/Osk-jr-Oidet Xfer(QC): 5 Bed to/from Chair: 5 Patient attempted to urinate in bathroom, however, did not lift his gown requiring PT to change and cleanse after use. Patient performed sit to stand x 3 sets to allow PT to do so. Weight Bearing Right Lower Extremity: Right Weight Bearing/Tolerated Left Lower Extremity: Left Weight Bearing/Tolerated Gait Training Does the Patient Walk?: Yes Gait (FIM): 4 Distance (FIM): 3=150 ft Distance: 500' Walk 50 ft with 2 Turns(QC): 4 Walk 150 ft (QC): 4 Gait Level of Assist: 4 Gait Persons Needed: 1 Gait Assistive Device: FWW flexed knee posture; steady, functional gait sequence with FWW Assessment Current Status: Excellent Progress Patient tolerated treatment well and returned to bed with bed alarm activated, all 4 rails up and Tele Sitter. PT Short Term Goals Short Term Goals Time Frame: Apr 08, 2017 Transfers (B,C,W/C) (FIM): 4 Gait (FIM): 4 Gait Distance Comment: 200 feet Gait Level of Assist: 4 Gait Assistive Device: FWW PT Detention Goals Sheet Tailer Goals Rollin PT Plan Treatment/Plan Treatment Plan: Continue Plan of Care Treatment Plan: Bed Mobility, Education, Functional Activity Shante, Functional Strength, Gait, Safety, Therapeutic Exercise, Transfers Treatment Duration: Apr 08, 2017 Frequency: 6 times per week Estimated Hrs Per Day: .25 hour per day (15-30 min) Patient and/or Family Agrees t: Yes Time/GCodes Time In: 848 Time Out: 911 Total Billed Treatment Time: 23 Total Billed Treatment 1 visit GT 13 min FA 10 min SHAINA AGUIRRE PT Apr 02, 2017 09:44
[2017-04-02] MEDS: Vortioxetine Hydrobromide (Trintellix) 10 MG PO SCH (10:50)
[2017-04-02] MEDS: OXYBUTYNIN (DITROPAN) 5 MG TAB PO SCH ×2 (10:51→21:52)
[2017-04-02] MEDS: LEVETIRACETAM 500 MG (KEPPRA) TAB PO SCH ×2 (10:51→21:52)
[2017-04-02] MEDS: BENZTROPINE MESYLATE 1 MG (COGENTIN) TAB PO SCH ×3 (10:51→21:53)
[2017-04-02] MEDS: FAMOTIDINE 20 MG (PEPCID) TABLET PO SCH ×2 (10:51→21:52)
[2017-04-02] MEDS: guaiFENesin (MUCINEX) 600 MG TAB PO SCH ×2 (10:51→21:52)
[2017-04-02] MEDS: RT-ALBUTEROL/IPRATROPIUM 3 ML (DUONEB) VIAL INH SCH ×2 (10:53→19:31)
[2017-04-02] MEDS: cloZAPine 100 MG (CLOZARIL) TAB PO SCH ×3 (10:54→21:52)
[2017-04-02 12:00] VITALS: BP 90/56
--- NOTE | 2017-04-02 14:24 | Occupational Ther Daily Note ---
OT Current Status-Daily Note Subjective No pain reported. Appearance Pt. in bed. Agrees to get up for a "coke." Mental Status/Objective Patient Orientation: Unable to Assess Functional [place] Measure 0=Not Assessed/NA 4=Minimal Assistance 1=Total Assistance 5=Supervision or Setup 2=Maximal Assistance 6=Modified [place] 3=Moderate Assistance 7=Complete [place] ADL-Treatment Functional [place] Measure 0=Not Assessed/NA 4=Minimal Assistance 1=Total Assistance 5=Supervision or Setup 2=Maximal Assistance 6=Modified [place] 3=Moderate Assistance 7=Complete IndependenceIRFPAI Quality Coding Scale 6 Independent with activity with or without an assistive device 5 Patient requires set up or clean up by helper. Patient completes activity by themselves 4 Supervision or touching assist (CGA). [place] provide cues , steadying assist 3 The helper provides less than half the effort to complete the activity 2 The helper provides more than half the effort to complete the activity 1 Dependent. The helper does all the effort to complete an activity 7 Patient refused to complete or attempt activity 9 The patient did not perform the activity before the current illness or injury 88 Not attempted due to Medical conditions or safety concerns Transfers (B, C, W/C) (FIM): 3 (Please see note below.) Other Treatment Pt. smiles at OT. Pt. is hard to understand at first, but does ask for a "coke. " Pt. is laying far down in bed and needs to sit up to drink coke. Pt. agrees to sit up to drink coke. Pt. requires max assist to transition supine-sit, as he begins to pull his legs back into bed. Once sitting on side of bed, he is able to position self and balance self with little difficulty. After talking awhile, pt. agrees to stand up with OT. Pt. stands with CGA two times, and takes 4 steps sideways toward HOB. Sits back down and when coke comes, requires mod assist to hold cup to drink it. Coke has been thickened by nursing. Pt. continually closes eyes and requires cues to stay awake. Pt. asks if he can lay back down. OT tells him that he can lay down, but pt. does not initiate this. OT assists pt. to lay down. Once laying, pt. positions self in sidelying. All needs met and pt. positioned well. Education OT Patient Education: Correct positioning, Modified ADL techniques, Progress toward Goal/Update tx plan, Purpose of tx/functional activities, Reviewed precautions, Rehab process, Transfer techniques Teaching Recipient: Patient Teaching Methods: Demonstration, Discussion Response to Teaching: Verbalize Understanding, Return Demonstration OT Short Term Goals Short Term Goals Time Frame: Apr 08, 2017 Eating(FIM): 3 Grooming(FIM): 3 Transfers (B,C,W/C) (FIM): 4 Additional Short Term Goals: 1-Demonstrate ADL Tasks, 2-Verbalize Understanding , 3-ImproveStrength/Shante 1=Demonstrate adherence to instructed precautions during ADL tasks. 2=Patient will verbalize/demonstrate understanding of assistive devices/ modifications for ADL. 3=Patient will improve strength/tolerance for activity to enable patient to perform ADL's. OT Mcfp Goals Mcfp Goals Time Frame: Apr 15, 2017 Eating (FIM): 5 Eating (QC): 5 Groomin Oral Hygiene (QC): 5 Toileting(FIM): 4 Toileting Hygiene (QC): 4 Transfers (B,C,W/C) (FIM): 4 Toilet/Commode Transfer(FIM): 4 Toilet/Commode Transfer (QC): 4 Additional Goals: 1-Demonstrate ADL Tasks, 2-Verbalize Understanding, 3- ImproveStrength/Shante 1=Demonstrate adherence to instructed precautions during ADL tasks. 2=Patient will verbalize/demonstrate understanding of assistive devices/ modifications for ADL. 3=Patient will improve strength/tolerance for activity to enable patient to perform ADL's. OT Education/Plan Problem List/Assessment Assessment: Decreased Activ Tolerance, Decreased Safety Aware, Decreased UE Strength, Dependent Transfers, Impaired Bed Mobility, Impaired Cognition, Impaired Coordination, Impaired Funct Balance, Impaired I ADL's, Impaired Self- Care Skills, Restricted Funct UE ROM Discharge Recommendations Plan/Recommendations: Continue POC Treatment Plan/Plan of Care Treatment,Training & Education: Yes Patient would benefit from OT for education, treatment and training to promote independence in ADL's, mobility, safety and/or upper extremity function for ADL' s. Plan of Care: ADL Retraining, Caregiver Training, Functional Mobility, UE Funct Exercise/Act Treatment Duration: Apr 15, 2017 Frequency: 5 times per week Estimated Hrs Per Day: .5 hour per day Agreement: Yes Rehab Potential: Guarded Time/GCodes Start Time: 13:45 Stop Time: 14:15 Total Time Billed (hr/min): 30 Billed Treatment Time 1, ADL x 2 SANTIAGO GUTIÉRREZ OT Apr 02, 2017 14:24
[2017-04-02 16:00] VITALS: BP 123/86
[2017-04-02 20:00] VITALS: BP 124/88
[2017-04-02] MEDS: ATORVASTATIN 20 MG (LIPITOR) TABLET PO SCH (21:52)
[2017-04-02] MEDS: QUEtiapine 200 MG (SEROquel) TAB IMMEDIATE RELEASE PO SCH (21:52)
[2017-04-03] VITALS: BP 128/82
[2017-04-03 04:04] VITALS: BP 123/90
[2017-04-03] MEDS: Vortioxetine Hydrobromide (Trintellix) 10 MG PO SCH (08:20)
[2017-04-03] MEDS: FAMOTIDINE 20 MG (PEPCID) TABLET PO SCH ×2 (08:21→19:38)
[2017-04-03] MEDS: LEVETIRACETAM 500 MG (KEPPRA) TAB PO SCH ×2 (08:21→19:37)
[2017-04-03] MEDS: BENZTROPINE MESYLATE 1 MG (COGENTIN) TAB PO SCH ×3 (08:21→19:37)
[2017-04-03] MEDS: guaiFENesin (MUCINEX) 600 MG TAB PO SCH ×2 (08:21→19:37)
[2017-04-03] MEDS: OXYBUTYNIN (DITROPAN) 5 MG TAB PO SCH ×2 (08:21→19:37)
[2017-04-03] MEDS: cloZAPine 100 MG (CLOZARIL) TAB PO SCH ×3 (08:21→19:38)
--- NOTE | 2017-04-03 08:31 | Progress Note-Hospitalist ---
Subjective HPI/CC On Admission Date Seen by Provider: Apr 03, 2017 Time Seen by Provider: 08:05 Subjective/Events-last exam Pt denies any complaints. States "I love you." multiple times to nursing staff and myself. Objective Exam Vital Signs Vital Sign - Last 12Hours 04/01/17 12:00 Temp 98.4 Pulse 106 Resp 22 B/P (MAP) 115/78 (90) Pulse Ox 93 O2 Delivery Room Air Capillary Refill : General Appearance: No Apparent Distress, Chronically ill Respiratory: Lungs Clear, No Accessory Muscle Use, No Respiratory Distress Cardiovascular: Regular Rate, Rhythm, No Edema, No Murmur Neurologic/Psychiatric: Alert, Other (cognitive delay) Assessment/Plan Assessment and Plan Assess & Plan/Chief Complaint CAP Diagnosis/Problems Diagnosis/Problems (1) CAP (community acquired pneumonia) Status: Acute Assessment & Plan: Bilateral pna Recovering well Off abx Qualifiers: Qualified Codes: J18.9 - Pneumonia, unspecified organism (2) Paranoid schizophrenia Assessment & Plan: Continue most of home psych meds Per report from malt specifications control assistant physician seemed oversedated on arrival Tolerating what has been restarted well (3) Essential (primary) hypertension Assessment & Plan: Continue Metoprolol (4) Cervical spine fracture Assessment & Plan: Per Dr Dobson no intervention required Qualifiers: Qualified Codes: S12.601D - Unspecified nondisplaced fracture of seventh cervical vertebra, subsequent encounter for fracture with routine healing (5) Debility Assessment & Plan: Follow critical illess and prolonged intubation Continue PT/OT CYNTHIA FAN MD Apr 03, 2017 08:31
[2017-04-03 08:51] VITALS: BP 127/92
--- NOTE | 2017-04-03 09:34 | Physical Therapy Daily Note ---
PT Daily Note-Current Subjective Patient is very agreeable to participate with PT. Pain Numeric Pain Scale: 0-No Pain Location: No Pain Reported Mental Status Patient Orientation: MR Transfers Functional [place] Measure 0=Not Assessed/NA 4=Minimal Assistance 1=Total Assistance 5=Supervision or Setup 2=Maximal Assistance 6=Modified [place] 3=Moderate Assistance 7=Complete IndependenceIRFPAI Quality Coding Scale 6 Independent with activity with or without an assistive device 5 Patient requires set up or clean up by helper. Patient completes activity by themselves 4 Supervision or touching assist (CGA). [place] provide cues , steadying assist 3 The helper provides less than half the effort to complete the activity 2 The helper provides more than half the effort to complete the activity 1 Dependent. The helper does all the effort to complete an activity 7 Patient refused to complete or attempt activity 9 The patient did not perform the activity before the current illness or injury 88 Not attempted due to Medical conditions or safety concerns Transfers (B, C, W/C) (FIM): 4 Scootin Roll Left to Right (QC): 4 Supine to/from Sit: 4 Sit to/from Stand: 4 Sit to Lying (QC): 4 Sit to Stand (QC): 4 Chair/Zbi-uk-Vfghw Xfer(QC): 4 Bed to/from Chair: 4 Weight Bearing Right Lower Extremity: Right Weight Bearing/Tolerated Left Lower Extremity: Left Weight Bearing/Tolerated Gait Training Does the Patient Walk?: Yes Gait (FIM): 4 Distance (FIM): 3=150 ft Distance: >800' Walk 50 ft with 2 Turns(QC): 4 Walk 150 ft (QC): 4 Gait Level of Assist: 4 Gait Assistive Device: FWW CGA for safety with 2 episodes of LOB with self correction Assessment Current Status: Excellent Progress Patient requires CGA for safety with gait training with FWW. Patient is up in recliner with chair alarm activated. PT Short Term Goals Short Term Goals Time Frame: Apr 08, 2017 Transfers (B,C,W/C) (FIM): 4 Gait (FIM): 4 Gait Distance Comment: 200 feet Gait Level of Assist: 4 Gait Assistive Device: FWW PT Longterm Goals Project Builder Goals Rollin PT Plan Treatment/Plan Treatment Plan: Continue Plan of Care Treatment Plan: Bed Mobility, Education, Functional Activity Shante, Functional Strength, Gait, Safety, Therapeutic Exercise, Transfers Treatment Duration: Apr 08, 2017 Frequency: 6 times per week Estimated Hrs Per Day: .25 hour per day (15-30 min) Patient and/or Family Agrees t: Yes Time/GCodes Time In: 810 Time Out: 836 Total Billed Treatment Time: 26 Total Billed Treatment 1 visit GT x 2 26 min SHAINA AGUIRRE PT Apr 03, 2017 09:34
--- NOTE | 2017-04-03 10:34 | Occupational Ther Daily Note ---
OT Current Status-Daily Note Subjective Pt alert, sitting in recliner. SARKAR asked pt if he had washed up for today and pt shook his head no. SARKAR asked nrsg and miner assistant stated that he had just had a shower. Pt agreed to therapy. Pt requested a 'coke' though he had 2 on his bedside table. Mental Status/Objective Patient Orientation: Unable to Assess (pt mumbles and is difficult to understand) Functional [place] Measure 0=Not Assessed/NA 4=Minimal Assistance 1=Total Assistance 5=Supervision or Setup 2=Maximal Assistance 6=Modified [place] 3=Moderate Assistance 7=Complete [place] ADL-Treatment Pt was handed a oral sponge to complete oral care. Pt popped it into his mouth then required verbal prompts to use sponge on different areas of mouth, pt stated 'I know'. Functional [place] Measure 0=Not Assessed/NA 4=Minimal Assistance 1=Total Assistance 5=Supervision or Setup 2=Maximal Assistance 6=Modified [place] 3=Moderate Assistance 7=Complete IndependenceIRFPAI Quality Coding Scale 6 Independent with activity with or without an assistive device 5 Patient requires set up or clean up by helper. Patient completes activity by themselves 4 Supervision or touching assist (CGA). [place] provide cues , steadying assist 3 The helper provides less than half the effort to complete the activity 2 The helper provides more than half the effort to complete the activity 1 Dependent. The helper does all the effort to complete an activity 7 Patient refused to complete or attempt activity 9 The patient did not perform the activity before the current illness or injury 88 Not attempted due to Medical conditions or safety concerns Nrsg stated that pt unable to follow step by step verbal instructions and needed thumbs up or down to demonstrate what movements needed to be done. Nrsg reports total assist. Other Treatment Pt completed 4 UE exercises, 10 reps. Pt required verbal and physical prompts for correct movement. Pt would count faster than reps doing and required cues to continue movements while counting. After therapy, pt sitting in recliner with call light/phone in reach. All needs met in room. OT Short Term Goals Short Term Goals Time Frame: Apr 08, 2017 Eating(FIM): 3 Grooming(FIM): 3 Transfers (B,C,W/C) (FIM): 4 Additional Short Term Goals: 1-Demonstrate ADL Tasks, 2-Verbalize Understanding , 3-ImproveStrength/Shante 1=Demonstrate adherence to instructed precautions during ADL tasks. 2=Patient will verbalize/demonstrate understanding of assistive devices/ modifications for ADL. 3=Patient will improve strength/tolerance for activity to enable patient to perform ADL's. OT Nursing Home Goals Nursing Home Goals Time Frame: Apr 15, 2017 Eating (FIM): 5 Eating (QC): 5 Groomin Oral Hygiene (QC): 5 Toileting(FIM): 4 Toileting Hygiene (QC): 4 Transfers (B,C,W/C) (FIM): 4 Toilet/Commode Transfer(FIM): 4 Toilet/Commode Transfer (QC): 4 Additional Goals: 1-Demonstrate ADL Tasks, 2-Verbalize Understanding, 3- ImproveStrength/Shante 1=Demonstrate adherence to instructed precautions during ADL tasks. 2=Patient will verbalize/demonstrate understanding of assistive devices/ modifications for ADL. 3=Patient will improve strength/tolerance for activity to enable patient to perform ADL's. OT Education/Plan Discharge Recommendations Plan/Recommendations: Continue POC Treatment Plan/Plan of Care Patient would benefit from OT for education, treatment and training to promote independence in ADL's, mobility, safety and/or upper extremity function for ADL' s. Plan of Care: ADL Retraining, Caregiver Training, Functional Mobility, UE Funct Exercise/Act Treatment Duration: Apr 15, 2017 Frequency: 5 times per week Estimated Hrs Per Day: .5 hour per day Agreement: Yes Rehab Potential: Guarded Time/GCodes Start Time: 10:10 Stop Time: 10:26 Total Time Billed (hr/min): 16 Billed Treatment Time 1 visit-FA 1 (16 min) MAYURI TAVERA Apr 03, 2017 10:34
[2017-04-03 11:50] VITALS: BP 110/70
[2017-04-03 15:45] VITALS: BP 104/58
[2017-04-03] MEDS: QUEtiapine 200 MG (SEROquel) TAB IMMEDIATE RELEASE PO SCH (19:37)
[2017-04-03] MEDS: ATORVASTATIN 20 MG (LIPITOR) TABLET PO SCH (19:38)
[2017-04-03 20:00] VITALS: BP 110/64
[2017-04-04] VITALS: BP 117/82
[2017-04-04 03:51] VITALS: BP 126/88
[2017-04-04] MEDS: guaiFENesin (MUCINEX) 600 MG TAB PO SCH ×2 (08:49→19:43)
[2017-04-04] MEDS: LEVETIRACETAM 500 MG (KEPPRA) TAB PO SCH ×2 (08:49→19:44)
[2017-04-04] MEDS: cloZAPine 100 MG (CLOZARIL) TAB PO SCH ×3 (08:49→19:44)
[2017-04-04] MEDS: SCOPOLAMINE 1.5 MG (TRANSDERM-SCOP) PATCH TOP SCH (08:49)
[2017-04-04] MEDS: BENZTROPINE MESYLATE 1 MG (COGENTIN) TAB PO SCH ×3 (08:49→19:44)
[2017-04-04] MEDS: FAMOTIDINE 20 MG (PEPCID) TABLET PO SCH ×2 (08:50→19:44)
[2017-04-04] MEDS: OXYBUTYNIN (DITROPAN) 5 MG TAB PO SCH ×2 (08:50→19:44)
[2017-04-04] MEDS: Vortioxetine Hydrobromide (Trintellix) 10 MG PO SCH (08:51)
[2017-04-04 08:55] VITALS: BP 124/83
--- NOTE | 2017-04-04 09:31 | Physical Therapy Daily Note ---
PT Daily Note-Current Subjective "I'm ready to walk." Pt denies pain. Mental Status Patient Orientation: Person Transfers Functional [place] Measure 0=Not Assessed/NA 4=Minimal Assistance 1=Total Assistance 5=Supervision or Setup 2=Maximal Assistance 6=Modified [place] 3=Moderate Assistance 7=Complete IndependenceIRFPAI Quality Coding Scale 6 Independent with activity with or without an assistive device 5 Patient requires set up or clean up by helper. Patient completes activity by themselves 4 Supervision or touching assist (CGA). [place] provide cues , steadying assist 3 The helper provides less than half the effort to complete the activity 2 The helper provides more than half the effort to complete the activity 1 Dependent. The helper does all the effort to complete an activity 7 Patient refused to complete or attempt activity 9 The patient did not perform the activity before the current illness or injury 88 Not attempted due to Medical conditions or safety concerns min A for sit to stand, prompting for all mobility required Weight Bearing Right Lower Extremity: Right Weight Bearing/Tolerated Left Lower Extremity: Left Weight Bearing/Tolerated Gait Training Gait Assistive Device: FWW Pt amb 600ft with CGA. Pt required vc's to maintain use of FWW. Pt became easily distracted leaving his walker and tried to take a drink out of a cup off the frontend engineer. Pt requires continual vc's for direction and safe mobility. Assessment Current Status: Good Progress Good performance with gait training, good endurance. Pt was positioned in bedside chair with call light and ambu alarm set. Legs elevated and all needs met. Pt requires CGA-min A for safe mobility. PT Short Term Goals Short Term Goals Time Frame: Apr 08, 2017 Transfers (B,C,W/C) (FIM): 4 Gait (FIM): 4 Gait Distance Comment: 200 feet Gait Level of Assist: 4 Gait Assistive Device: FWW PT Halfway Goals Concrete Panel Installer Goals Rollin PT Plan Treatment/Plan Treatment Plan: Continue Plan of Care Treatment Plan: Bed Mobility, Education, Functional Activity Shante, Functional Strength, Gait, Safety, Therapeutic Exercise, Transfers Treatment Duration: Apr 08, 2017 Frequency: 6 times per week Estimated Hrs Per Day: .25 hour per day (15-30 min) Patient and/or Family Agrees t: Yes Time/GCodes Time In: 800 Time Out: 825 Total Billed Treatment Time: 25 Total Billed Treatment 1, gait 25 min JHON SMITH CPTA Apr 04, 2017 09:31
[2017-04-04 12:50] VITALS: BP 101/69
[2017-04-04] MEDS: ATORVASTATIN 20 MG (LIPITOR) TABLET PO SCH (19:44)
[2017-04-04] MEDS: QUEtiapine 200 MG (SEROquel) TAB IMMEDIATE RELEASE PO SCH (19:44)
[2017-04-04 20:47] VITALS: BP 115/73
[2017-04-05 02:39] VITALS: BP 103/60
[2017-04-05 08:00] VITALS: BP 127/81
[2017-04-05] MEDS: FAMOTIDINE 20 MG (PEPCID) TABLET PO SCH ×2 (08:26→19:44)
[2017-04-05] MEDS: BENZTROPINE MESYLATE 1 MG (COGENTIN) TAB PO SCH ×3 (08:26→19:43)
[2017-04-05] MEDS: cloZAPine 100 MG (CLOZARIL) TAB PO SCH ×3 (08:27→19:49)
[2017-04-05] MEDS: guaiFENesin (MUCINEX) 600 MG TAB PO SCH ×2 (08:27→19:44)
[2017-04-05] MEDS: Vortioxetine Hydrobromide (Trintellix) 10 MG PO SCH (08:27)
[2017-04-05] MEDS: OXYBUTYNIN (DITROPAN) 5 MG TAB PO SCH ×2 (08:27→19:43)
[2017-04-05] MEDS: LEVETIRACETAM 500 MG (KEPPRA) TAB PO SCH ×2 (08:33→19:44)
[2017-04-05 12:00] VITALS: BP 119/83
[2017-04-05 15:04] VITALS: BP 141/77
[2017-04-05] MEDS: QUEtiapine 200 MG (SEROquel) TAB IMMEDIATE RELEASE PO SCH (19:44)
[2017-04-05] MEDS: ATORVASTATIN 20 MG (LIPITOR) TABLET PO SCH (19:44)
[2017-04-05 20:55] VITALS: BP 130/75
[2017-04-06 06:04] VITALS: BP 126/74
[2017-04-06] MEDS: guaiFENesin (MUCINEX) 600 MG TAB PO SCH (08:05)
[2017-04-06] MEDS: LEVETIRACETAM 500 MG (KEPPRA) TAB PO SCH (08:05)
[2017-04-06] MEDS: OXYBUTYNIN (DITROPAN) 5 MG TAB PO SCH (08:05)
[2017-04-06] MEDS: cloZAPine 100 MG (CLOZARIL) TAB PO SCH (08:06)
[2017-04-06] MEDS: FAMOTIDINE 20 MG (PEPCID) TABLET PO SCH (08:06)
[2017-04-06] MEDS: BENZTROPINE MESYLATE 1 MG (COGENTIN) TAB PO SCH ×2 (08:06→13:30)
[2017-04-06] MEDS: Vortioxetine Hydrobromide (Trintellix) 10 MG PO SCH (08:06)
--- NOTE | 2017-04-06 09:27 | Speech Therapy Progress Note ---
Therapy Progress Note Speech pathology attempted follow up dysphagia session with the patient. The patient stood up upon entrance of clinician and walked out into the hallway ( with aid present). Regardless of maximum prompting by the aid and the clinician , the patient refused to return to room to participate in the swallowing evaluation. Speech pathology will re-attempt at a later time. DARLING ADAN Apr 06, 2017 09:26
--- NOTE | 2017-04-06 11:13 | Progress Note-Hospitalist ---
Standard Progress Note Progress Notes/Assess & Plan Date Seen 04/06/17 Time Seen by Provider: 10:30 Diagnosis 1.sepsis. 2.hypoxia/respiratory failure requiring ventilatory treatment. 3.bilateral pneumonia. 4.hyper natremia/dehydration. Assess & Plan/Chief Complaint The patient has completed his treatment requirements. He has been up and walking in the halls. He has been agitated enough to require a sitter. At the time I entered the room he is actually lying quietly in bed. He seemed excited with the prospect of returning to his facility. Physical exam: Lungs are clear to auscultation. CV is regular without murmur. Abdomen is soft. Extremities show no pedal edema. Plan return to his care facility. See discharge sequence for medications ISRAEL KELLER MD Apr 06, 2017 11:13
--- NOTE | 2017-04-06 11:17 | Discharge Instructions ---
Discharge Instructions Patient Instructions Patient Instructions: Medications as on the discharge sequence. Resume previous diet and activities Activity & Diet Discharge Diet: No Restrictions Activity as Tolerated: Yes ISRAEL KELLER MD Apr 06, 2017 11:17
--- NOTE | 2017-04-06 12:52 | Speech Therapy Progress Note ---
Therapy Progress Note As the patient was uncooperative for speech pathology's re-evaluation attempt, the speech pathologist visited with the patient's RN, as well as, the patient's in-room sitter regarding his swallowing abilities over the past several days and throughout his morning meal. Per RN (who was present during the weekend shift), the patient did not demonstrate any signs/symptoms of aspiration with any consistency he currently consumed. In addition, the patient's in-room sitter stated the patient consumed his morning meal without any difficulty. As the clinician was unable to complete re-evaluation due to reduced cooperation, the patient's current diet consistency recommendation is continued. At this time , the patient should remain on a puree diet consistency with nectar-thick liquids. To provide additional caution, the following recommendations have been made: - Puree diet consistency with nectar-thick liquids, as tolerated. - Cease PO intake and contact primary care physician immediately if signs/ symptoms of aspiration are observed (coughing, choking, throat clearing, wet voice, watery eyes, red face). - NO straws. - The patient must be seated upright and alert for all PO attempts. - Small bites and sips. - Crush medication and place in puree for administration. - 1:1 supervision for all PO intake. DARLING ADAN Apr 06, 2017 12:52
[2017-04-06 14:00] VITALS: BP 126/74
--- NOTE | 2017-04-06 14:39 | Therapy Team Discharge Summary ---
Therapy Discharge Summary Discharge Recommendations Date of Discharge Apr 06, 2017 at 14:15 Physical Therapy Patient dismissed back to custodial for continued care. Patient initially required minimal assist with all mobility with use of FWW, however, improved to independent without FWW with ambulation. Goals attained. Occupational Therapy Decreased Activ Tolerance, Decreased Safety Aware, Decreased UE Strength, Dependent Transfers, Impaired Bed Mobility, Impaired Cognition, Impaired Coordination, Impaired Funct Balance, Impaired I ADL's, Impaired Self-Care Skills, Restricted Funct UE ROM PT Longterm Goals Longterm Goals Rollin OT Longterm Goals Assessment Director Goals Time Frame: Apr 15, 2017 Eating (FIM): 5 Eating (QC): 5 Groomin Oral Hygiene (QC): 5 Toileting(FIM): 4 Toileting Hygiene (QC): 4 Transfers (B,C,W/C) (FIM): 4 Toilet/Commode Transfer(FIM): 4 Toilet/Commode Transfer (QC): 4 Additional Goals: 1-Demonstrate ADL Tasks, 2-Verbalize Understanding, 3- ImproveStrength/Shante 1=Demonstrate adherence to instructed precautions during ADL tasks. 2=Patient will verbalize/demonstrate understanding of assistive devices/ modifications for ADL. 3=Patient will improve strength/tolerance for activity to enable patient to perform ADL's. Speech Longterm Goals Longterm Goals 1. The patient will tolerate the least restrictive diet without signs/symptoms of aspiration. Time Frame: One Week SHAINA AGUIRRE PT Apr 06, 2017 14:39
--- NOTE | 2017-04-06 14:39 | Physical Therapy Daily Note ---
PT Daily Note-Current Subjective Patient agrees to ambulate. Pain Numeric Pain Scale: 0-No Pain Location: No Pain Reported Mental Status Patient Orientation: MR Transfers Functional [place] Measure 0=Not Assessed/NA 4=Minimal Assistance 1=Total Assistance 5=Supervision or Setup 2=Maximal Assistance 6=Modified [place] 3=Moderate Assistance 7=Complete IndependenceIRFPAI Quality Coding Scale 6 Independent with activity with or without an assistive device 5 Patient requires set up or clean up by helper. Patient completes activity by themselves 4 Supervision or touching assist (CGA). [place] provide cues , steadying assist 3 The helper provides less than half the effort to complete the activity 2 The helper provides more than half the effort to complete the activity 1 Dependent. The helper does all the effort to complete an activity 7 Patient refused to complete or attempt activity 9 The patient did not perform the activity before the current illness or injury 88 Not attempted due to Medical conditions or safety concerns Transfers (B, C, W/C) (FIM): 7 Scootin Sit to/from Stand: 7 Sit to Stand (QC): 6 Weight Bearing Right Lower Extremity: Right Weight Bearing/Tolerated Left Lower Extremity: Left Weight Bearing/Tolerated Gait Training Does the Patient Walk?: Yes Gait (FIM): 7 Distance (FIM): 3=150 ft Distance: >600' Walk 50 ft with 2 Turns(QC): 6 Walk 150 ft (QC): 6 Gait Level of Assist: 7 Gait Assistive Device: None flexed knee posture Assessment Patient dismissed back to senior care for continued care. Patient initially required minimal assist with all mobility with use of FWW, however, improved to independent without FWW with ambulation. Goals attained. PT Short Term Goals Short Term Goals Time Frame: Apr 08, 2017 Transfers (B,C,W/C) (FIM): 4 Gait (FIM): 4 Gait Distance Comment: 200 feet Gait Level of Assist: 4 Gait Assistive Device: FWW PT Usp Goals Refrigeration Service Inspector Goals Rollin PT Plan Treatment/Plan Treatment Plan: Discontinue PT, goals met Treatment Plan: Bed Mobility, Education, Functional Activity Shante, Functional Strength, Gait, Safety, Therapeutic Exercise, Transfers Treatment Duration: Apr 08, 2017 Frequency: 6 times per week Estimated Hrs Per Day: .25 hour per day (15-30 min) Patient and/or Family Agrees t: Yes Time/GCodes Time In: 1331 Time Out: 1346 Total Billed Treatment Time: 15 Total Billed Treatment 1 visit FA 15 min SHAINA AGUIRRE PT Apr 06, 2017 14:38
--- NOTE | 2017-04-06 14:40 | Therapy Team Discharge Summary ---
Therapy Discharge Summary Discharge Recommendations Date of Discharge Apr 06, 2017 at 14:15 Occupational Therapy Decreased Activ Tolerance, Decreased Safety Aware, Decreased UE Strength, Dependent Transfers, Impaired Bed Mobility, Impaired Cognition, Impaired Coordination, Impaired Funct Balance, Impaired I ADL's, Impaired Self-Care Skills, Restricted Funct UE ROM Speech-Language Pathology The patient was admitted to [facility] with a diagnosis of bilateral pneumonia. Upon examination, the patient demonstrated signs/symptoms of aspiration with thin liquids, therefore, the clinician recommended a puree diet consistency with nectar-thick liquids. As his hospitalization progressed, the patient remained appropriate for this diet consistency. The patient's progression was reduced due to the patient's consistent inability to participate in structured treatment sessions. Upon discharge, the patient remains on a puree diet with nectar-thick consistencies. The patient did not meet goals placed by the ST as the patient was consistently uncooperative throughout swallowing re-evaluation attempts. The patient will be discharged from skilled services at this time. ST recommends continued speech pathology services post discharge. PT Call Center Dispatcher Goals Halfway Goals Rollin OT Call Center Dispatcher Goals Halfway Goals Time Frame: Apr 15, 2017 Eating (FIM): 5 Eating (QC): 5 Groomin Oral Hygiene (QC): 5 Toileting(FIM): 4 Toileting Hygiene (QC): 4 Transfers (B,C,W/C) (FIM): 4 Toilet/Commode Transfer(FIM): 4 Toilet/Commode Transfer (QC): 4 Additional Goals: 1-Demonstrate ADL Tasks, 2-Verbalize Understanding, 3- ImproveStrength/Shante 1=Demonstrate adherence to instructed precautions during ADL tasks. 2=Patient will verbalize/demonstrate understanding of assistive devices/ modifications for ADL. 3=Patient will improve strength/tolerance for activity to enable patient to perform ADL's. Speech Call Center Dispatcher Goals Halfway Goals 1. The patient will tolerate the least restrictive diet without signs/symptoms of aspiration. Time Frame: One Week DARLING ADAN Apr 06, 2017 14:40
== END 2017-04-06 14:15 | disposition home or self-care (01) | DRG 194 ==
LOC: 4TH 09:34
PROVIDERS: ADMIT Family Medicine; ATTEND Family Medicine
DX: J18.9 Pneumonia, unspecified organism (principal); F72 Severe intellectual disabilities; G40.909 Epilepsy, unspecified, not intractable, without status epilepticus; F63.81 Intermittent explosive disorder; F20.9 Schizophrenia, unspecified; F32.9 Major depressive disorder, single episode, unspecified; I10 Essential (primary) hypertension; F17.210 Nicotine dependence, cigarettes, uncomplicated; Z66 Do not resuscitate; E78.00 Pure hypercholesterolemia, unspecified; K21.9 Gastro-esophageal reflux disease without esophagitis; K59.09 Other constipation; L40.9 Psoriasis, unspecified; S12.691D Other nondisplaced fracture of seventh cervical vertebra, subsequent encounter for fracture with routine healing
CPT/HCPCS: 36415; 80048; 85025; 87804; 94640; 94760

== ENCOUNTER → 2018-03-22 | Outpatient (CLI) | payer MEDICARE, MEDICAID ==
[~2018-03-22] MED LIST changes: +CLON2TAB12 PO; -POLY17PO23 PO; +POLY17PO31 PO
--- NOTE | 2018-03-22 10:26 | Diagnostic Imaging Report ---
INDICATION: Dysphagia. FINDINGS: The procedure was performed in conjunction with speech pathology. Video fluoroscopy was performed during swallowing of barium at multiple consistencies. Total of 1 minute and 14 seconds of fluoroscopy was utilized. The patient was administered thin and thick liquid as well as nectar and pudding consistency. Patient also ingested solid consistency. Oral phase unremarkable. There is normal epiglottic tilt and laryngeal elevation. No laryngeal penetration or aspiration was observed. There is some mild vallecular residue noted with multiple consistencies. IMPRESSION: Mild vallecular residue. The study is otherwise unremarkable. Dictated by: Dictated on workstation # [id number]
== END ==
LOC: RAD 09:42
PROVIDERS: ATTEND Otolaryngology Otolaryngology/Facial Plastic Surgery
DX: R13.10 Dysphagia, unspecified (principal)
CPT/HCPCS: 74230

== ENCOUNTER 2018-09-29 17:28 | Emergency (ER) | payer MEDICARE, MEDICAID ==
[~2018-09-29] VITALS: Ht 175.3 cm; Wt 83.5 kg
--- OUTSIDE RECORDS SUMMARY | 2018-09-29 17:33 | XMS REPORT ---
Author Author TSERING PATRICIO [facility] Address [address] [place] [address] Care Team Providers Care Soap Grinder Name Role Phone TSERINGPORSHA TORREZHANY Unavailable PROBLEMS Type Condition ICD9-CM Code ODB11-WB Code Onset Dates Condition Status SNOMED Code Problem Paranoid schizophrenia, chronic condition 295.32 Active 29191704 Problem Intermittent explosive disorder 312.34 Active 04969193 Problem Hyperlipemia E78.5 Active 41255955 Problem Mildly mentally retarded F70 Active 15861967 Problem Stress incontinence, male N39.3 Active 730885607 Problem Paranoid schizophrenia, chronic condition F20.0 Active 88969641 Problem Mild intellectual disabilities F70 Active 52297078 Problem Enuresis R32 Active 10776017 Problem High risk medication use Z79.899 Active 202698291 Problem 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 Active 69774814 Problem Seizures R56.9 Active 73745030 Problem Unsteady gait R26.81 Active 47867078 Problem Severe episode of recurrent major depressive disorder, with psychotic features F33.3 Active 75411429 Problem Constipation, unspecified constipation type K59.00 Active 87486838 Problem Dysphagia, unspecified type R13.10 Active 22779314 ALLERGIES No Information ENCOUNTERS Encounter Location Date Diagnosis [place] [address] [facility] [id number], [place] [address] Sep, [facility] [address] [facility] [id number], [place] [address] Aug, [place] [address] [place] [address] [id number], [place] [address] Jun, Paranoid schizophrenia, chronic condition F20.0 ; 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 ; Mild intellectual disabilities F70 and High risk medication use Z79.899 [place] [address], [place] [address] Jun, Paranoid schizophrenia, chronic condition F20.0 ; 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 and Mild intellectual disabilities F70 [facility] [address] [id number] May, Dental examination Z01.20 [facility] [address] [place] [address] [id number] [place] [address] Mar, Paranoid schizophrenia, chronic condition F20.0 and Mild intellectual disabilities F70 [facility] [address] [place] [id number] [place] [address] Mar, Paranoid schizophrenia, chronic condition F20.0 ; High risk medication use Z79.899 ; Mild intellectual disabilities F70 and Anxiety F41.9 [facility] [id number] [place] [address] Feb, [facility] [id number] [place] [address] Nov, Paranoid schizophrenia, chronic condition F20.0 ; Mild intellectual disabilities F70 ; Enuresis R32 ; Dysphagia, unspecified type R13.10 and High risk medication use Z79.899 [facility] [address], [place] [address] Oct, [facility] [address], [place] [address] Oct, [facility] [address] [id number] [place] [address] Oct, Paranoid schizophrenia, chronic condition F20.0 ; Enuresis R32 ; Mild intellectual disabilities F70 ; High risk medication use Z79.899 and Dysphagia, unspecified type R13.10 [facility] [address], [place] [address] July, Paranoid schizophrenia, chronic condition F20.0 and Mild intellectual disabilities F70 [facility] [id number] [place] [address] Jun, Paranoid schizophrenia, chronic condition F20.0 [place] [address] [place] [address] [id number] [place] [address] May, [facility] [id number] [place] [address] 13 Apr, 2017 Paranoid schizophrenia, chronic condition F20.0 ; Mild intellectual disabilities F70 and High risk medication use Z79.899 [place] [address] [place] [address] [id number] [place] [address] Apr, [place] [address] [address] Mar, [place] [address] [place] [id number] [place] [address] Mar, [facility] [address] [id number] [place] [address] Mar, Contusion of nose, initial encounter S00.33XA [place] [address] [address] [id number] [place] [address] Mar, Paranoid schizophrenia, chronic condition F20.0 ; Severe episode of recurrent major depressive disorder, with psychotic features F33.3 and Mild intellectual disabilities F70 [facility] [id number] [place] [address] Mar, Constipation, unspecified constipation type K59.00 and Abrasion of right ear, initial encounter S00.411A [facility] [id number] [place] [address] Mar, [facility] [id number] [place] [id number] Feb, Encounter for dental examination and cleaning without abnormal findings Z01.20 [place] [address] [place] [id number] [place] [address] Feb, [place] [address] [place] [address] Feb, Paranoid schizophrenia, chronic condition F20.0 ; Mild intellectual disabilities F70 and High risk medication use Z79.899 [facility] [address], [place] [address] Jan, [facility] [address], [place] [address] Jan, Unsteady gait R26.81 [facility] [id number] [place] [address] Dec, Encounter for immunization Z23 [facility] [address] [id number] [place] [address] Nov, [facility] [address] [place] [id number] [place] [address] Oct, Paranoid schizophrenia, chronic condition F20.0 ; Mild intellectual disabilities F70 and High risk medication use Z79.899 [facility] [address] [id number], [place] [address] Sep, [facility] [address] [place] [address] [id number] [place] [address] July, [facility] [id number] [place] [address] Jun, High risk medication use Z79.899 [facility] [address], [place] [address] Apr, [facility] [address], [place] [address] Apr, Paranoid schizophrenia, chronic condition F20.0 ; Mild intellectual disabilities F70 and High risk medication use Z79.899 [facility] [address], [place] [address] Apr, [facility] [address] [place] [address] [id number] [place] [address] Feb, [facility] [address], [place] [address] Jan, [facility] [address] [id number] [address] Jan, [facility] [address], [place] [address] Jan, Paranoid schizophrenia, chronic condition F20.0 [facility] [address], [place] [address] Dec, Paranoid schizophrenia, chronic condition F20.0 ; Mild intellectual disabilities F70 and High risk medication use Z79.899 [facility] [address], [place] [address] Dec, [facility] [id number] [place] [address] Nov, Paranoid schizophrenia, chronic condition F20.0 ; Mild intellectual disabilities F70 and High risk medication use Z79.899 [facility] [address], [place] [address] Oct, [facility] [address] [id number], [place] [address] Oct, [facility] [address], [place] [address] Oct, [facility] [address], [place] [address] Oct, [facility] [address], [place] [address] Aug, [facility] [address] [id number], [place] [address] Jun, Paranoid schizophrenia, chronic condition F20.0 ; High risk medication use Z79.899 and Mild intellectual disabilities F70 [facility] [address] [place] [address] Apr, High risk medication use Z79.899 ; Paranoid schizophrenia, chronic condition F20.0 and Mild intellectual disabilities F70 [facility] [address] [id number] Apr, Encounter for dental examination Z01.20 [facility] [address], [place] [address] Apr, [facility] [address] [id number] [place] [address] Mar, Paranoid schizophrenia, chronic condition F20.0 ; Mildly mentally retarded F70 and High risk medication use Z79.899 [facility] [address] [place] [id number] [place] [address] Feb, Paranoid schizophrenia F20.0 [facility] [address] [place] [id number] [place] [address] Dec, [facility] [address] [place] [id number] [place] [address] Dec, Paranoid schizophrenia, chronic condition F20.0 and Mild mental retardation F70 [facility] [address] [place] [id number] [place] [address] Dec, [facility] [address], [place] [address] Dec, [facility] [address] [id number] [place] [address] Dec, [facility] [id number] [place] [address] Dec, High risk medication use Z79.899 and Hyperlipemia E78.5 [facility] [address], [place] [address] Nov, [facility] [address] [id number] [place] [address] Sep, [facility] [address] [facility] [id number] [place] [address] Sep, Paranoid schizophrenia, chronic condition 295.32 and Mild mental retardation [address] [facility] [address] [facility] [id number] [place] [address] 14 Jun, 2014 [facility] [address] [facility] [id number] [place] [address] Jun, [facility] [address] [facility] [id number], [place] [address] Apr, 2014 [facility] [address] [facility] [id number] [place] [address] Apr, 2014 [facility] [address] [facility] [id number] [place] [address] Apr, 2014 [facility] [address] [place] [address] Apr, 2014 [facility] [address] [place] [id number] [place] [address] Apr, [facility] [address] [address] [id number] [place] [address] Apr, [facility] [address] [place] [address] [id number] [place] [address] Mar, [facility] [address] [place] [address] Mar, [facility] [id number], [place] [address] Mar, [facility] [id number], [place] [address] Mar, [facility] [address] [facility] [id number], [place] [address] Mar, [facility] [id number], [place] [address] Mar, [facility] [place] [facility] [address] [id number] [place] [address] Feb, [facility] [place] [facility] [address] [id number] [place] [address] Feb, [facility] [place] [facility] [address] [id number] [place] [address] Jan, [facility] [place] [facility] [address] [id number] [place] [address] Jan, [facility] [place] [facility] [address] [id number] [place] [address] Jan, [facility] [place] [facility] [address] [id number] [place] [address] Jan, [facility] [place] [facility] [address] [id number] [place] [address] Jan, [facility] [place] [facility] [address] [id number] [place] [address] Jan, [facility] [place] [facility] [address] [id number] [place] [address] Jan, [facility] [place] [facility] [address] [id number] [place] [address] Dec, [facility] [place] [facility] [address] [id number] [place] [address] Dec, [facility] [place] [facility] [address] [id number] [place] [address] Dec, [facility] [place] [facility] [address] [id number] [place] [address] Dec, [facility] [place] [facility] [address] [id number] [place] [address] Dec, [facility] [place] [facility] [address] [id number] [place] [address] Dec, [facility] [place] [facility] [address] [id number] [place] [address] Dec, [facility] [place] [facility] [address] [id number] [place] [address] Dec, [facility] [place] [facility] [address] [id number] [place] [address] Nov, [facility] [place] [facility] [address] [id number] [place] [address] Nov, [facility] [place] [facility] [address] [id number] [place] [address] Nov, [facility] [place] [facility] [address] [id number] [place] [address] Nov, [facility] [place] [facility] [address] [id number] [place] [address] Oct, [facility] [place] [facility] [address] [id number] [place] [address] Oct, [facility] [place] [facility] [address] [id number] [place] [address] Oct, [facility] [place] [facility] [address] [id number] [place] [address] Oct, [facility] [place] [facility] [address] [id number] [place] [address] Oct, [facility] [place] [facility] [address] [id number], [place] [address] Oct, [facility] [place] [facility] [address] [id number], [place] [address] Sep, [facility] [place] [facility] [address] [id number] [place] [address] Sep, [facility] [place] [facility] [address] [id number] [place] [address] Sep, [facility] [place] [facility] [address] [id number] [place] [address] Sep, [facility] [place] [facility] [address] [id number] [place] [address] Sep, [facility] [place] [facility] [address] [id number] [place] [address] Sep, [facility] [place] [facility] [address] [id number] [place] [address] Sep, [facility] [place] [facility] [address] [id number] [place] [address] Sep, [facility] [place] [facility] [address] [id number] [place] [address] Sep, [facility] [place] [facility] [address] [id number] [place] [address] Sep, [facility] [place] [facility] [address] [id number] [place] [address] Aug, [facility] [place] [facility] [address] [id number] [place] [address] Aug, [facility] [place] [facility] [address] [id number] [place] [address] Aug, [facility] [place] [facility] [address] [id number] [place] [address] Aug, [facility] [place] [facility] [address] [id number] [place] [address] Aug, [facility] [place] [facility] [address] [id number] [place] [address] Aug, [facility] [place] [facility] [address] [id number] [place] [address] Aug, [facility] [place] [facility] [address] [id number] [place] [address] Aug, [facility] [place] [facility] [address] [id number] [place] [address] Aug, [facility] [place] [facility] [address] [id number] [place] [address] Aug, [facility] [place] [facility] [address] [id number] [place] [address] July, [facility] [place] [facility] [address] [id number] [place] [address] July, [facility] [place] [facility] [address] [id number] [place] [address] July, [facility] [place] [facility] [address] [id number] [place] [address] July, [facility] [address] [id number] [place] [address] July, [facility] [place] [facility] [address] [id number] [place] [address] July, [facility] [address] [id number] [place] [address] July, [facility] [address] [id number] [place] [address] July, [facility] [place] [facility] [address] [id number] [place] [address] Jun, [facility] [place] [facility] [address] [id number] [place] [address] Jun, [facility] [place] [facility] [address] [id number] [place] [address] Jun, [facility] [place] [facility] [address] [id number] [place] [address] Jun, [facility] [place] [facility] [address] [id number] [place] [address] May, [facility] [place] [facility] [address] [id number] [place] [address] May, [facility] [place] [facility] [address] [id number] [place] [address] May, [facility] [place] [facility] [address] [id number] [place] [address] May, [facility] [place] [facility] [address] [id number] [place] [address] May, [facility] [place] [facility] [address] [id number] [place] [address] May, [facility] [place] [facility] [address] [id number] [place] [address] Apr, [facility] [place] [facility] [address] [id number] [place] [address] Apr, [facility] [place] [facility] [address] [id number] [place] [address] Apr, [facility] [place] [facility] [address] [id number] [place] [address] Apr, [facility] [place] [facility] [address] [facility] [id number] [place] [address] Apr, [facility] [place] [facility] [address] [id number] [place] [address] Apr, [facility] [place] [facility] [address] [id number] [place] [address] Apr, [facility] [place] [facility] [address] [facility] [id number] [place] [address] Apr, [facility] [place] [facility] [address] [facility] [id number] [place] [address] Apr, [facility] [place] [facility] [address] [facility] [id number] [place] [address] Apr, [facility] [place] [facility] [address] [id number] [place] [address] Mar, [facility] [place] [facility] [address] [id number] [place] [address] Mar, [facility] [place] [facility] [address] [facility] [id number] [place] [address] Mar, [facility] [address] [id number] [place] [address] Mar, [facility] [place] [facility] [address] [id number] [place] [address] Mar, [facility] [place] [facility] [address] [id number] [place] [address] Mar, [facility] [place] [facility] [address] [id number] [place] [address] Mar, [facility] [place] [facility] [address] [id number] [place] [address] Mar, [facility] [place] [facility] [address] [id number] [place] [address] Feb, [facility] [place] [facility] [address] [id number] [place] [address] Feb, [facility] [place] [facility] [address] [id number] [place] [address] Feb, [facility] [place] [facility] [address] [id number] [place] [address] Feb, [facility] [place] [facility] [address] [id number] [place] [address] Feb, [facility] [place] [facility] [address] [id number] [place] [address] Feb, [facility] [place] [facility] [address] [id number], [place] [address] Feb, [facility] [place] [facility] [address] [id number] [place] [address] Feb, [facility] [place] [facility] [address] [id number] [place] [address] Feb, [facility] [place] [facility] [address] [id number], [place] [address] 05 Feb, 2013 [facility] [place] [facility] [address] [id number], [place] [address] Jan, [facility] [place] [facility] [address] [id number] [place] [address] Jan, [facility] [place] [facility] [address] [id number], [place] [address] Jan, [facility] [place] [facility] [address] [facility] [id number] [place] [address] Jan, [facility] [place] [facility] [address] [id number], [place] [address] 18 Jan, 2013 [facility] [place] [facility] [address] [id number] [place] [address] 15 Jan, 2013 [facility] [place] [facility] [address] [id number] [place] [address] 15 Jan, 2013 [facility] [place] [facility] [address] [facility] [id number], [place] [address] 14 Jan, 2013 [facility] [place] [facility] [address] [id number] [place] [address] 14 Jan, 2013 [facility] [place] [facility] [address] [facility] [id number] [place] [address] Jan, [facility] [place] [facility] [address] [facility] [id number] [place] [address] Jan, [facility] [place] [facility] [address] [id number], [place] [address] 05 Jan, 2013 [facility] [place] [facility] [address] [id number], [place] [address] 05 Jan, 2013 [facility] [place] [facility] [address] [id number], [place] [address] Dec, [facility] [place] [facility] [address] [id number] [place] [address] Dec, [facility] [place] [facility] [address] [facility] [id number], [place] [address] Dec, [facility] [place] [facility] [address] [id number] [place] [address] Dec, [facility] [place] [facility] [address] [id number] [place] [address] Nov, [facility] [place] [facility] [address] [id number] [place] [address] Nov, [facility] [place] [facility] [address] [id number] [place] [address] Nov, [facility] [place] [facility] [address] [id number] [place] [address] Oct, [facility] [place] [facility] [address] [id number] [place] [address] Oct, [facility] [place] [facility] [address] [id number] [place] [address] Oct, [facility] [place] [facility] [address] [id number] [place] [address] Oct, [facility] [place] [facility] [address] [id number] [place] [address] Oct, [facility] [place] [facility] [address] [id number] [place] [address] Oct, [facility] [place] [facility] [address] [id number] [place] [address] Sep, [facility] [place] [facility] [address] [id number] [place] [address] Sep, [facility] [place] [facility] [address] [id number] [place] [address] Sep, [facility] [place] [facility] [address] [id number] [place] [address] Sep, [facility] [place] [facility] [address] [id number] [place] [address] Sep, [facility] [place] [facility] [address] [id number] [place] [address] Sep, [facility] [place] [facility] [address] [id number] [place] [address] Sep, [facility] [place] [facility] [address] [id number] [place] [address] Sep, [facility] [place] [facility] [address] [id number] [place] [address] Sep, [facility] [place] [facility] [address] [id number] [place] [address] Aug, [facility] [facility] [address] [id number] [place] [address] Aug, [facility] [place] [facility] [address] [id number] [place] [address] Aug, [facility] [place] [facility] [address] [id number] [place] [address] Aug, [facility] [place] [facility] [address] [id number] [place] [address] Aug, [facility] [place] [facility] [address] [id number] [place] [address] Aug, [facility] [place] [address] [id number] [place] [address] Aug, [facility] [address] [id number] [place] [address] July, [facility] [address] [id number], [place] [address] July, [facility] [place] [address] [id number] [place] [address] July, [facility] [place] [facility] [address] [id number] [place] [address] Jun, [facility] [place] [address] [id number] [place] [address] Jun, [facility] [place] [facility] [address] [id number] [place] [address] 05 Jun, 2012 [facility] [address] [id number] [place] [address] 02 Jun, 2012 [facility] [address] [id number] [place] [address] 29 May, 2012 [facility] [address] [id number] [place] [address] 18 May, 2012 [facility] [address] [id number] [place] [address] 18 May, 2012 [facility] [address] [id number] [place] [address] 15 May, 2012 [facility] [address] [id number] [place] [address] 14 May, 2012 [facility] [address] [id number] [place] [address] 07 May, 2012 [facility] [address] [id number] [place] [address] 06 May, 2012 [facility] [address] [id number] [place] [address] 04 May, 2012 [facility] [address] [id number] [place] [address] 18 Apr, 2012 [facility] [address] [id number] [place] [address] 17 Feb, 2012 [facility] [address] [id number] [place] [address] 17 Feb, 2012 [facility] [address] [id number] [place] [address] 17 Feb, 2012 [facility] [address] [id number] [place] [address] 17 Feb, 2012 [facility] [address] [id number] [place] [address] 13 Feb, 2012 [facility] [address] [id number] [place] [address] Feb, [facility] [address] [id number] [place] [address] Feb, [facility] [address] [id number] [place] [address] Feb, [facility] [address] [id number] [place] [address], [place] [address] Feb, [facility] [address] [id number] [place] [address] Feb, [facility] [address] [id number] [place] [address] Jan, [facility] [address] [id number] [place] [address] Jan, [facility] [address] [id number] [place] [address] Jan, [facility] [address] [id number] [place] [address] Jan, [facility] [address] [id number] [place] [address] Jan, [facility] [address] [id number] [place] [address] Jan, [facility] [address] [id number] [place] [address] Jan, [facility] [address] [id number] [place] [address] Jan, [facility] [address] [id number] [place] [address] Dec, [facility] [address] [id number] [place] [address] Dec, [facility] [address] [id number] [place] [address] Dec, [facility] [address] [id number] [place] [address] Dec, [facility] [address] [id number] [place] [address] Dec, [facility] [address] [id number] [place] [address] Dec, [facility] [address] [id number] [place] [address] Dec, [facility] [address] [id number] [place] [address] Nov, [facility] [address] [id number] [place] [address] Nov, [facility] [address] [id number] [place] [address] Nov, [facility] [address] [id number] [place] [address] Oct, [facility] [address] [id number] [place] [address] Oct, [facility] [address] [id number] [place] [address] Oct, [facility] [address] [id number] [place] [address] Oct, [facility] [address] [id number] [place] [address] Sep, [facility] [address] [id number] [place] [address] Sep, [facility] [address] [id number] [place] [address] Sep, [facility] [address] [id number] [place] [address] Aug, [facility] [address] [id number] [place] [address] Aug, [facility] [address] [id number] [place] [address] July, [facility] [address] [id number] [place] [address] July, [facility] [address] [id number] [place] [address] July, [facility] [address] [id number] [place] [address] Jun, [facility] [address] [id number] [place] [address] Jun, [facility] [address] [id number] [place] [address] May, [facility] [address] [id number] [place] [address] Apr, [facility] [address] [id number] [place] [address] Apr, [facility] [address] [id number] [place] [address] Apr, [facility] [address] [id number] [place] [address] Mar, [facility] [address] [id number] [place] [address] Mar, [facility] [address] [id number] [place] [address] Mar, [facility] [address] [id number] [place] [address] Mar, [facility] [address] [id number] [place] [address] Feb, [facility] [address] [id number] [place] [address] Feb, [facility] [address] [id number] [place] [address] 17 Feb, 2011 [facility] [address] [id number] [place] [address] Feb, [facility] [address] [id number] [place] [address] 30 Jan, 2011 [facility] [address] [id number] [place] [address] Jan, [facility] [address] [id number] [place] [address] Jan, [facility] [address] [id number] [place] [address] Jan, [facility] [address] [id number] [place] [address] Jan, [facility] [address] [id number] [place] [address] Dec, [facility] [address] [id number] [place] [address] Sep, [facility] [address] [id number] [place] [address] Feb, [facility] [address] [id number] [place] [address] 30 Feb, 2010 [facility] [address] [id number], [place] [address] Feb, [facility] [address] [id number] [place] [address] 29 Dec, 2009 [facility] [address] [id number] [place] [address] Dec, [facility] [address] [id number] [place] [address] Oct, [facility] [address] [id number] [address] 15 Aug, 2009 [facility] [address] [id number] [address] 15 Feb, 2009 [facility] [id number], [place] [address] Feb, [facility] [id number], [place] [address] Jan, [facility] [id number], [place] [address] Jan, [facility] [id number], [place] [address] Dec, [facility] [id number], [place] [address] Dec, [facility] [address] [id number], [place] [address] Nov, IMMUNIZATIONS No Known Immunizations SOCIAL HISTORY Never Assessed REASON FOR VISIT PLAN OF CARE VITAL SIGNS Height 68 in 2012-10-07 Weight 151.5 lbs 2012-10-07 Temperature 97.6 degrees Fahrenheit 2012-10-07 Heart Rate 104 bpm 2012-10-07 Respiratory Rate 20 2012-10-07 Blood pressure systolic 112 mmHg 2012-10-07 Blood pressure diastolic 82 mmHg 2012-10-07 MEDICATIONS Unknown Medications RESULTS No Results PROCEDURES No Known procedures INSTRUCTIONS MEDICATIONS ADMINISTERED No Known Medications MEDICAL (GENERAL) HISTORY Type Description Date Medical History High Blood Pressure Medical History Fainting/Seizures/Epilepsy Medical History Moderate MR Medical History GERD Medical History Hyperlipidemia Medical History Paranoid Schizophrenia Medical History incontenance Medical History 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
--- OUTSIDE RECORDS SUMMARY | 2018-09-29 17:33 | XMS REPORT ---
Author Author SHEA Kauffman [facility] Address [address] [place] [address] Care Team Providers Care Ocularist Name Role Phone SHEA Kauffman Unavailable PROBLEMS Type Condition ICD9-CM Code SJK66-UO Code Onset Dates Condition Status SNOMED Code Problem Paranoid schizophrenia, chronic condition 295.32 Active 84076244 Problem Intermittent explosive disorder 312.34 Active 40809899 Problem Hyperlipemia E78.5 Active 85427375 Problem Mildly mentally retarded F70 Active 04780504 Problem Stress incontinence, male N39.3 Active 056586191 Problem Paranoid schizophrenia, chronic condition F20.0 Active 72046020 Problem Mild intellectual disabilities F70 Active 52794984 Problem Enuresis R32 Active 23573423 Problem High risk medication use Z79.899 Active 253541622 Problem 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 Active 62729710 Problem Seizures R56.9 Active 45978191 Problem Unsteady gait R26.81 Active 36677750 Problem Severe episode of recurrent major depressive disorder, with psychotic features F33.3 Active 99540729 Problem Constipation, unspecified constipation type K59.00 Active 56505185 Problem Dysphagia, unspecified type R13.10 Active [id number] ALLERGIES No Information ENCOUNTERS Encounter Location Date Diagnosis [facility] [id number], [place] [address] Sep, [facility] [address], [place] [address] Aug, [facility] [id number] [place] [address] Jun, Paranoid schizophrenia, chronic condition F20.0 ; 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 ; Mild intellectual disabilities F70 and High risk medication use Z79.[address], [place] [address] Jun, Paranoid schizophrenia, chronic condition F20.0 ; 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 and Mild intellectual disabilities F70 [facility] [address] [id number] May, Dental examination Z01.20 [place] [id number] [place] [address] Mar, Paranoid schizophrenia, chronic condition F20.0 and Mild intellectual disabilities F70 [place] [id number] [place] [address] Mar, Paranoid schizophrenia, chronic condition F20.0 ; High risk medication use Z79.899 ; Mild intellectual disabilities F70 and Anxiety F41.9 [address] [place] [address], [place] [address] Feb, [place] [id number] [place] [address] Nov, Paranoid schizophrenia, chronic condition F20.0 ; Mild intellectual disabilities F70 ; Enuresis R32 ; Dysphagia, unspecified type R13.10 and High risk medication use Z79.899 [address] [place], [place] [address] Oct, [place] [id number], [place] [address] Oct, [facility] [address], [place] [address] Oct, Paranoid schizophrenia, chronic condition F20.0 ; Enuresis R32 ; Mild intellectual disabilities F70 ; High risk medication use Z79.899 and Dysphagia, unspecified type R13.10 [facility] [address], [place] [address] July, Paranoid schizophrenia, chronic condition F20.0 and Mild intellectual disabilities F70 [place] [address], [place] [address] Jun, Paranoid schizophrenia, chronic condition F20.0 [facility] [id number] [place] [address] May, [facility] [id number] [place] [address] 13 Apr, 2017 Paranoid schizophrenia, chronic condition F20.0 ; Mild intellectual disabilities F70 and High risk medication use Z79.899 [facility] [id number] [place] [address] 08 Apr, 2017 [place] [id number] [place] [address] Mar, [place] [id number] [place] [address] Mar, [facility] [id number] [place] [address] Mar, Contusion of nose, initial encounter S00.33XA [facility] [id number] [place] [address] Mar, Paranoid schizophrenia, chronic condition F20.0 ; Severe episode of recurrent major depressive disorder, with psychotic features F33.3 and Mild intellectual disabilities F70 [facility] [id number] [place] [address] Mar, Constipation, unspecified constipation type K59.00 and Abrasion of right ear, initial encounter S00.411A [facility] [address], [place] [address] Mar, [facility] [id number] [place] [id number] Feb, Encounter for dental examination and cleaning without abnormal findings Z01.20 [facility] [id number] [place] [address] Feb, [facility] [address], [place] [address] Feb, Paranoid schizophrenia, chronic condition F20.0 ; Mild intellectual disabilities F70 and High risk medication use Z79.899 [facility] [address], [place] [address] Jan, [facility] [id number] [place] [address] Jan, Unsteady gait R26.81 [facility] [id number] [place] [address] Dec, Encounter for immunization Z23 [facility] [id number] [place] [address] Nov, [facility] [id number] [place] [address] Oct, Paranoid schizophrenia, chronic condition F20.0 ; Mild intellectual disabilities F70 and High risk medication use Z79.899 [facility] [id number] [place] [address] Sep, [facility] [id number] [place] [address] July, [facility] [id number] [place] [address] Jun, High risk medication use Z79.899 [facility] [id number] [place] [address] Apr, [facility] [id number] [place] [address] Apr, Paranoid schizophrenia, chronic condition F20.0 ; Mild intellectual disabilities F70 and High risk medication use Z79.899 [facility] [id number] [place] [address] Apr, [facility] [id number] [place] [address] Feb, [facility] [id number], [place] [address] Jan, [facility] [id number], [place] [address] Jan, [facility] [address], [place] [address] Jan, Paranoid schizophrenia, chronic condition F20.0 [facility] [id number], [place] [address] Dec, Paranoid schizophrenia, chronic condition F20.0 ; Mild intellectual disabilities F70 and High risk medication use Z79.899 [facility] [address], [place] [address] Dec, [facility] [address], [place] [address] Nov, Paranoid schizophrenia, chronic condition F20.0 ; Mild intellectual disabilities F70 and High risk medication use Z79.899 [facility] [address], [place] [address] Oct, [facility] [address], [place] [address] Oct, [facility] [address], [place] [address] Oct, [facility] [address], [place] [address] Oct, [facility] [address], [place] [address] Aug, [facility] [address], [place] [address] Jun, Paranoid schizophrenia, chronic condition F20.0 ; High risk medication use Z79.899 and Mild intellectual disabilities F70 [facility] [address], [place] [address] Apr, High risk medication use Z79.899 ; Paranoid schizophrenia, chronic condition F20.0 and Mild intellectual disabilities F70 [facility] [id number] [id number] 17 Apr, 2015 Encounter for dental examination Z01.20 [facility] [address], [place] [address] Apr, [facility] [id number] [place] [address] Mar, Paranoid schizophrenia, chronic condition F20.0 ; Mildly mentally retarded F70 and High risk medication use Z79.899 [facility] [id number] [place] [address] Feb, Paranoid schizophrenia F20.0 [facility] [id number] [place] [address] Dec, [facility] [id number] [place] [address] Dec, Paranoid schizophrenia, chronic condition F20.0 and Mild mental retardation F70 [facility] [address], [place] [address] Dec, [facility] [address], [place] [address] Dec, [facility] [id number] [place] [address] Dec, [facility] [id number] [place] [address] Dec, High risk medication use Z79.899 and Hyperlipemia E78.5 [facility] [address], [place] [address] Nov, [facility] [address], [place] [address] Sep, [facility] [address] [facility] [id number] [place] [address] Sep, Paranoid schizophrenia, chronic condition 295.32 and Mild mental retardation 317 [facility] [address] [facility] [id number] [place] [address] 14 Jun, 2014 [facility] [address] [facility] [id number] [place] [address] Jun, [facility] [address] [facility] [id number] [place] [address] Apr, 2014 [facility] [address] [facility] [id number] [place] [address] Apr, 2014 [facility] [address] [facility] [id number] [place] [address] Apr, 2014 [facility] [address] [facility] [id number] [place] [address] Apr, 2014 [facility] [address] [facility] [id number] [place] [address] Apr, [facility] [id number] [place] [address] Apr, [facility] [id number] [place] [address] Mar, [facility] [id number] [place] [address] Mar, [facility] [address] [facility] [id number] [address] Mar, [facility] [place] [facility] [address] [facility] [id number] [place] [address] Mar, [facility] [place] [facility] [address] [facility] [id number] [place] [address] Mar, [facility] [id number], [place] [address] Mar, [facility] [place] [facility] [address] [id number] [place] [address] Feb, [facility] [place] [facility] [address] [id number] [place] [address] Feb, [facility] [place] [facility] [address] [id number] [place] [address] Jan, [facility] [place] [facility] [address] [id number] [place] [address] Jan, [facility] [place] [facility] [address] [id number] [place] [address] Jan, [facility] [place] [facility] [address] [id number] [place] [address] Jan, [facility] [place] [facility] [address] [id number] [place] [address] Jan, [facility] [place] [facility] [address] [id number] [place] [address] Jan, [facility] [place] [facility] [address] [id number] [place] [address] Jan, [facility] [place] [facility] [address] [id number] [place] [address] Dec, [facility] [place] [facility] [address] [id number] [place] [address] Dec, [facility] [place] [facility] [address] [id number], [place] [address] Dec, [facility] [place] [facility] [address] [id number] [place] [address] Dec, [facility] [place] [facility] [address] [id number] [place] [address] Dec, [facility] [place] [facility] [address] [id number] [place] [address] Dec, [facility] [place] [facility] [address] [id number], [place] [address] Dec, [facility] [place] [facility] [address] [id number] [place] [address] Dec, [facility] [place] [facility] [address] [id number] [place] [address] Nov, [facility] [place] [facility] [address] [id number] [place] [address] Nov, [facility] [place] [facility] [address] [id number] [place] [address] Nov, [facility] [place] [facility] [address] [id number] [place] [address] Nov, [facility] [place] [facility] [address] [id number] [place] [address] Oct, [facility] [place] [facility] [address] [id number] [place] [address] Oct, [facility] [place] [facility] [address] [id number] [place] [address] Oct, [facility] [place] [facility] [address] [id number] [place] [address] Oct, [facility] [place] [facility] [address] [id number] [place] [address] Oct, [facility] [place] [facility] [address] [id number] [place] [address] Oct, [facility] [place] [facility] [address] [id number] [place] [address] Sep, [facility] [place] [facility] [address] [id number] [place] [address] Sep, [facility] [place] [facility] [address] [id number] [place] [address] Sep, [facility] [place] [facility] [address] [id number] [place] [address] Sep, [facility] [place] [facility] [address] [id number] [place] [address] Sep, [facility] [place] [facility] [address] [id number] [place] [address] Sep, [facility] [place] [facility] [address] [id number] [place] [address] Sep, [facility] [place] [facility] [address] [id number] [place] [address] Sep, [facility] [place] [facility] [address] [id number] [place] [address] Sep, [facility] [place] [facility] [address] [id number] [place] [address] Sep, [facility] [place] [facility] [address] [id number] [place] [address] Aug, [facility] [place] [facility] [address] [id number] [place] [address] Aug, [facility] [place] [facility] [address] [id number] [place] [address] Aug, [facility] [place] [facility] [address] [id number] [place] [address] Aug, [facility] [place] [facility] [address] [id number] [place] [address] Aug, [facility] [place] [facility] [address] [id number] [place] [address] Aug, [facility] [place] [facility] [address] [id number] [place] [address] Aug, [facility] [place] [facility] [address] [id number] [place] [address] Aug, [facility] [place] [facility] [address] [id number] [place] [address] Aug, [facility] [place] [facility] [address] [id number] [place] [address] Aug, [facility] [place] [facility] [address] [id number] [place] [address] July, [facility] [place] [facility] [address] [id number] [place] [address] July, [facility] [place] [facility] [address] [id number] [place] [address] July, [facility] [place] [facility] [address] [id number] [place] [address] July, [facility] [place] [facility] [address] [id number] [place] [address] July, [facility] [place] [facility] [address] [id number] [place] [address] July, [facility] [place] [facility] [address] [id number] [place] [address] July, [facility] [place] [facility] [address] [id number] [place] [address] July, [facility] [place] [facility] [address] [id number] [place] [address] Jun, [facility] [place] [facility] [address] [id number] [place] [address] Jun, [facility] [place] [facility] [address] [id number] [place] [address] Jun, [facility] [place] [facility] [address] [id number] [place] [address] Jun, [facility] [place] [facility] [address] [id number] [place] [address] May, [facility] [place] [facility] [address] [id number] [place] [address] May, [facility] [place] [facility] [address] [id number] [place] [address] May, [facility] [place] [facility] [address] [id number] [place] [address] May, [facility] [place] [facility] [address] [id number] [place] [address] May, [facility] [place] [facility] [address] [id number] [place] [address] May, [facility] [place] [facility] [address] [id number] [place] [address] Apr, [facility] [place] [facility] [address] [id number] [place] [address] Apr, [facility] [place] [facility] [address] [id number] [place] [address] Apr, [facility] [place] [facility] [address] [id number] [place] [address] Apr, [facility] [place] [facility] [address] [id number] [place] [address] Apr, [facility] [place] [facility] [address] [id number] [place] [address] Apr, [facility] [place] [facility] [address] [id number] [place] [address] Apr, [facility] [place] [facility] [address] [id number] [place] [address] Apr, [facility] [place] [facility] [address] [id number] [place] [address] Apr, [facility] [place] [facility] [address] [id number] [place] [address] Apr, [facility] [place] [facility] [address] [id number] [place] [address] Mar, [facility] [place] [facility] [address] [id number] [place] [address] Mar, [facility] [place] [facility] [address] [id number] [place] [address] Mar, [facility] [place] [facility] [address] [id number] [place] [address] Mar, [facility] [place] [facility] [address] [id number] [place] [address] Mar, [facility] [place] [facility] [address] [id number] [place] [address] Mar, [facility] [place] [facility] [address] [id number] [place] [address] Mar, [facility] [place] [facility] [address] [id number] [place] [address] Mar, [facility] [place] [facility] [address] [id number] [place] [address] Feb, [facility] [place] [facility] [address] [id number] [place] [address] Feb, [facility] [place] [facility] [address] [id number] [place] [address] Feb, [facility] [place] [facility] [address] [id number] [place] [address] Feb, [facility] [place] [facility] [address] [id number] [place] [address] Feb, [facility] [place] [facility] [address] [id number], [place] [address] Feb, [facility] [place] [facility] [address] [id number], [place] [address] Feb, [facility] [place] [facility] [address] [id number] [place] [address] Feb, [facility] [place] [facility] [address] [id number] [place] [address] 05 Feb, 2013 [facility] [place] [facility] [address] [id number] [place] [address] Feb, [facility] [place] [facility] [address] [id number] [place] [address] Jan, [facility] [address] [id number] [place] [address] Jan, [facility] [place] [facility] [address] [id number] [place] [address] Jan, [facility] [place] [facility] [address] [id number] [place] [address] 20 Jan, 2013 [facility] [place] [facility] [address] [id number] [place] [address] 18 Jan, 2013 [facility] [place] [facility] [address] [id number] [place] [address] 15 Jan, 2013 [facility] [place] [facility] [address] [id number] [place] [address] 15 Jan, 2013 [facility] [place] [facility] [address] [id number] [place] [address] 14 Jan, 2013 [facility] [place] [facility] [address] [id number] [place] [address] 14 Jan, 2013 [facility] [place] [facility] [address] [id number] [place] [address] 06 Jan, 2013 [facility] [place] [facility] [address] [facility] [id number] [place] [address] 06 Jan, 2013 [facility] [place] [facility] [address] [id number] [place] [address] 05 Jan, 2013 [facility] [place] [facility] [address] [id number], [place] [address] 05 Jan, 2013 [facility] [place] [facility] [address] [id number] [place] [address] Dec, [facility] [place] [facility] [address] [id number] [place] [address] Dec, [facility] [place] [facility] [address] [id number], [place] [address] Dec, [facility] [place] [facility] [address] [id number] [place] [address] Dec, [facility] [place] [facility] [address] [id number] [place] [address] Nov, [facility] [place] [facility] [address] [id number] [place] [address] Nov, [facility] [place] [facility] [address] [id number] [place] [address] Nov, [facility] [place] [facility] [address] [id number] [place] [address] Oct, [facility] [place] [facility] [address] [id number] [place] [address] Oct, [facility] [place] [facility] [address] [id number] [place] [address] Oct, [facility] [place] [facility] [address] [id number] [place] [address] Oct, [facility] [place] [facility] [address] [id number] [place] [address] Oct, [facility] [place] [facility] [address] [id number] [place] [address] Oct, [facility] [place] [facility] [address] [id number] [place] [address] Sep, [facility] [place] [facility] [address] [id number] [place] [address] Sep, [facility] [place] [facility] [address] [id number] [place] [address] Sep, [facility] [place] [facility] [address] [id number] [place] [address] Sep, [facility] [place] [facility] [address] [id number] [place] [address] Sep, [facility] [place] [facility] [address] [id number] [place] [address] Sep, [facility] [address] [id number] [place] [address] Sep, [facility] [place] [facility] [address] [id number] [place] [address] Sep, [facility] [place] [facility] [address] [id number] [place] [address] Sep, [facility] [place] [facility] [address] [id number] [place] [address] Aug, [facility] [place] [facility] [address] [id number] [place] [address] Aug, [facility] [place] [facility] [address] [id number] [place] [address] Aug, [facility] [place] [facility] [address] [id number] [place] [address] Aug, [facility] [place] [facility] [address] [id number] [place] [address] Aug, [facility] [place] [facility] [address] [id number] [place] [address] Aug, [facility] [place] [facility] [address] [id number] [place] [address] Aug, [facility] [place] [facility] [address] [id number] [place] [address] July, [facility] [place] [facility] [address] [id number] [place] [address] July, [facility] [place] [facility] [address] [id number] [place] [address] July, [facility] [place] [facility] [address] [id number] [place] [address] Jun, [facility] [place] [facility] [address] [id number] [place] [address] Jun, [facility] [place] [facility] [address] [id number] [place] [address] 05 Jun, 2012 [facility] [facility] [address] [id number] [place] [address] 02 Jun, 2012 [facility] [address] [id number] [place] [address] 29 May, 2012 [facility] [address] [id number] [place] [address] 18 May, 2012 [facility] [address] [id number] [place] [address] 18 May, 2012 [facility] [address] [id number] [place] [address] 15 May, 2012 [facility] [address] [id number] [place] [address] 14 May, 2012 [facility] [address] [id number] [place] [address] 07 May, 2012 [facility] [address] [id number] [place] [address] 06 May, 2012 [facility] [address] [id number] [place] [address] 04 May, 2012 [facility] [address] [id number] [place] [address] 18 Apr, 2012 [facility] [address] [id number] [place] [address] 17 Feb, 2012 [facility] [address] [id number] [place] [address] 17 Feb, 2012 [facility] [address] [id number] [place] [address] 17 Feb, 2012 [facility] [address] [id number] [place] [address] 17 Feb, 2012 [facility] [address] [id number] [place] [address] Feb, [facility] [place] [facility] [address] [id number] [place] [address] Feb, [facility] [place] [facility] [address] [id number] [place] [address] Feb, [facility] [place] [facility] [address] [id number] [place] [address] Feb, [facility] [place] [facility] [address] [id number] [place] [address] Feb, [facility] [place] [facility] [address] [id number] [place] [address] Feb, [facility] [place] [facility] [address] [id number] [place] [address] Jan, [facility] [place] [facility] [address] [id number] [place] [address] Jan, [facility] [place] [facility] [address] [id number], [place] [address] Jan, [facility] [place] [facility] [address] [id number] [place] [address] Jan, [facility] [place] [facility] [address] [facility] [id number], [place] [address] Jan, [facility] [place] [facility] [address] [facility] [id number], [place] [address] Jan, [facility] [place] [facility] [address] [id number], [place] [address] Jan, [facility] [place] [facility] [address] [id number], [place] [address] Jan, [facility] [place] [facility] [address] [id number], [place] [address] Dec, [facility] [place] [facility] [address] [facility] [id number], [place] [address] Dec, [facility] [place] [facility] [address] [id number], [place] [address] Dec, [facility] [place] [facility] [address] [id number] [place] [address] 16 Dec, 2011 [facility] [place] [facility] [address] [id number] [place] [address] Dec, [facility] [place] [facility] [address] [id number] [place] [address] Dec, [facility] [place] [facility] [address] [id number] [place] [address] Dec, [facility] [place] [facility] [address] [id number] [place] [address] 28 Nov, 2011 [facility] [place] [facility] [address] [id number] [place] [address] Nov, [facility] [place] [facility] [address] [id number] [place] [address] 04 Nov, 2011 [facility] [place] [facility] [address] [id number] [place] [address] Oct, [facility] [place] [facility] [address] [id number] [place] [address] Oct, [facility] [place] [facility] [address] [facility] [id number] [place] [address] Oct, [facility] [place] [facility] [address] [id number] [place] [address] Oct, [facility] [place] [facility] [address] [id number] [place] [address] Sep, [facility] [place] [facility] [address] [id number] [place] [address] Sep, [facility] [place] [facility] [address] [facility] [id number] [place] [address] Sep, [facility] [place] [facility] [address] [facility] [id number] [place] [address] Aug, [facility] [place] [facility] [address] [id number] [place] [address] Aug, [facility] [place] [facility] [address] [id number] [place] [address] July, [facility] [place] [facility] [address] [id number] [place] [address] July, [facility] [place] [facility] [address] [id number] [place] [address] July, [facility] [place] [facility] [address] [id number] [place] [address] Jun, [facility] [place] [facility] [address] [id number] [place] [address] Jun, [facility] [place] [facility] [address] [id number] [place] [address] May, [facility] [place] [facility] [address] [id number] [place] [address] Apr, [facility] [place] [facility] [address] [id number] [place] [address] Apr, [facility] [place] [facility] [address] [id number] [place] [address] Apr, [facility] [place] [facility] [address] [id number] [place] [address] Mar, [facility] [place] [facility] [address] [id number] [place] [address] Mar, [facility] [place] [facility] [address] [id number] [place] [address] Mar, [facility] [place] [facility] [address] [id number] [place] [address] Mar, [facility] [place] [facility] [address] [id number] [place] [address] Feb, [facility] [place] [facility] [address] [id number] [place] [address] 23 Feb, 2011 [facility] [place] [facility] [address] [id number] [place] [address] 17 Feb, 2011 [facility] [place] [facility] [address] [id number] [place] [address] Feb, [facility] [place] [facility] [address] [id number] [place] [address] 30 Jan, 2011 [facility] [place] [facility] [address] [id number] [place] [address] Jan, [facility] [place] [facility] [address] [id number] [place] [address] Jan, [facility] [place] [facility] [address] [id number] [place] [address] Jan, [facility] [place] [facility] [address] [id number] [place] [address] Jan, [facility] [place] [facility] [address] [id number] [place] [address] Dec, [facility] [place] [facility] [address] [id number] [place] [address] Sep, [facility] [place] [facility] [address] [id number] [place] [address] Feb, [facility] [place] [facility] [address] [id number] [place] [address] 30 Feb, 2010 [facility] [place] [facility] [address] [id number] [place] [address] Feb, [facility] [place] [facility] [address] [id number] [place] [address] 29 Dec, 2009 [facility] [place] [facility] [address] [id number] [place] [address] Dec, [facility] [place] [facility] [address] [id number] [place] [address] Oct, [facility] [place] [facility] [address] [id number] [address] 15 Aug, 2009 [facility] [id number], [place] [address] Feb, [facility] [id number], [place] [address] Feb, [facility] [id number] [place] [address] Jan, [facility] [id number] [place] [address] Jan, [facility] [id number] [place] [address] Dec, [facility] [id number], [place] [address] Dec, [facility] [id number], [place] [address] Nov, IMMUNIZATIONS No Known Immunizations SOCIAL HISTORY Never Assessed REASON FOR VISIT PLAN OF CARE VITAL SIGNS MEDICATIONS Unknown Medications RESULTS No Results PROCEDURES Procedure Date Ordered Result Body Site COMPLETE CBC W/AUTO DIFF WBC July 01, 2011 INSTRUCTIONS MEDICATIONS ADMINISTERED No Known Medications MEDICAL (GENERAL) HISTORY Type Description Date Medical History High Blood Pressure Medical History Fainting/Seizures/Epilepsy Medical History Moderate MR Medical History GERD Medical History Hyperlipidemia Medical History Paranoid Schizophrenia Medical History incontenance Medical History 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
--- OUTSIDE RECORDS SUMMARY | 2018-09-29 17:34 | XMS REPORT ---
Author Author Migration, Doctor Organization [facility] Address Unknown Phone Unavailable Care Team Providers Care Metallurgical Tester Name Role Phone Migration, Doctor Unavailable Unavailable PROBLEMS Type Condition ICD9-CM Code UFD87-QG Code Onset Dates Condition Status SNOMED Code Problem Paranoid schizophrenia, chronic condition 295.32 Active 27403111 Problem Intermittent explosive disorder 312.34 Active 71685105 Problem Hyperlipemia E78.5 Active 12908106 Problem Mildly mentally retarded F70 Active 64879340 Problem Stress incontinence, male N39.3 Active 816810500 Problem Paranoid schizophrenia, chronic condition F20.0 Active 35657109 Problem Mild intellectual disabilities F70 Active 24176065 Problem Enuresis R32 Active 35966559 Problem High risk medication use Z79.899 Active 254968359 Problem 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 Active 77222065 Problem Seizures R56.9 Active 38242090 Problem Unsteady gait R26.81 Active 79232259 Problem Severe episode of recurrent major depressive disorder, with psychotic features F33.3 Active 76116066 Problem Constipation, unspecified constipation type K59.00 Active 18978270 Problem Dysphagia, unspecified type R13.10 Active 26616363 ALLERGIES No Information ENCOUNTERS Encounter Location Date Diagnosis [facility] [place] [id number] [address] Sep, [facility] [place] [id number] [place] [address] Jun, Paranoid schizophrenia, chronic condition F20.0 ; 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 ; Mild intellectual disabilities F70 and High risk medication use Z79.899 [facility] [place] [id number] [place] [address] Jun, Paranoid schizophrenia, chronic condition F20.0 ; 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 and Mild intellectual disabilities F70 [facility] [id number] [id number] May, Dental examination Z01.20 [facility] [place] [id number] [place] [address] Mar, Paranoid schizophrenia, chronic condition F20.0 and Mild intellectual disabilities F70 [facility] [place] [id number] [address] Mar, Paranoid schizophrenia, chronic condition F20.0 ; High risk medication use Z79.899 ; Mild intellectual disabilities F70 and Anxiety F41.9 [facility] [place] [id number] [address] Feb, [facility] [place] [id number] [place] [address] Nov, Paranoid schizophrenia, chronic condition F20.0 ; Mild intellectual disabilities F70 ; Enuresis R32 ; Dysphagia, unspecified type R13.10 and High risk medication use Z79.899 [facility] [place] [id number] [address] Oct, [facility] [place] [id number] [place] [address] Oct, [facility] [place] [id number] [address] Oct, Paranoid schizophrenia, chronic condition F20.0 ; Enuresis R32 ; Mild intellectual disabilities F70 ; High risk medication use Z79.899 and Dysphagia, unspecified type R13.10 [facility] [place] [address] [address] July, Paranoid schizophrenia, chronic condition F20.0 and Mild intellectual disabilities F70 [facility] [place] [id number] [address] Jun, Paranoid schizophrenia, chronic condition F20.0 [facility] [place] [id number] [address] May, [facility] [place] [id number] [place] [address] 13 Apr, 2017 Paranoid schizophrenia, chronic condition F20.0 ; Mild intellectual disabilities F70 and High risk medication use Z79.899 [id number] [place] [address] 08 Apr, 2017 [address] [id number] [place] [address] Mar, [place] [id number] [place] [address] Mar, [facility] [id number] [place] [address] Mar, Contusion of nose, initial encounter S00.33XA [address] [id number] [place] [address] Mar, Paranoid schizophrenia, chronic condition F20.0 ; Severe episode of recurrent major depressive disorder, with psychotic features F33.3 and Mild intellectual disabilities F70 [facility] [id number] [place] [address] Mar, Constipation, unspecified constipation type K59.00 and Abrasion of right ear, initial encounter S00.411A [place] [id number] [place] [address] Mar, [facility] [id number] [place] [id number] Feb, Encounter for dental examination and cleaning without abnormal findings Z01.20 [place] [id number] [place] [address] Feb, [address] [id number] [place] [address] Feb, Paranoid schizophrenia, chronic condition F20.0 ; Mild intellectual disabilities F70 and High risk medication use Z79.899 [address] [address] [place] [address] Jan, [facility] [id number] [place] [address] Jan, Unsteady gait R26.81 [facility] [place] [id number] [address] Dec, Encounter for immunization Z23 [facility] [place] [id number] [place] [address] Nov, [facility] [place] [id number] [place] [address] Oct, Paranoid schizophrenia, chronic condition F20.0 ; Mild intellectual disabilities F70 and High risk medication use Z79.899 [facility] [place] [id number] [place] [address] Sep, [facility] [place] [id number] [place] [address] July, [facility] [place] [id number] [place] [address] Jun, High risk medication use Z79.899 [facility] [place] [id number] [place] [address] Apr, [facility] [place] [address] [address] Apr, Paranoid schizophrenia, chronic condition F20.0 ; Mild intellectual disabilities F70 and High risk medication use Z79.899 [facility] [place] [id number] [address] Apr, [facility] [place] [id number] [place] [address] Feb, [facility] [place] [id number] [place] [address] Jan, [facility] [place] [id number] [place] [address] Jan, [facility] [place] [address] [id number] [address] Jan, Paranoid schizophrenia, chronic condition F20.0 [facility] [place] [id number] [address] Dec, Paranoid schizophrenia, chronic condition F20.0 ; Mild intellectual disabilities F70 and High risk medication use Z79.899 [facility] [place] [id number] [address] Dec, [facility] [place] [id number] [address] Nov, Paranoid schizophrenia, chronic condition F20.0 ; Mild intellectual disabilities F70 and High risk medication use Z79.899 [facility] [place] [address] [address] Oct, [facility] [place] [id number] [address] Oct, [facility] [place] [id number] [address] Oct, [facility] [place] [id number] [address] Oct, [facility] [place] [id number] [address] Aug, [facility] [place] [id number] [address] Jun, Paranoid schizophrenia, chronic condition F20.0 ; High risk medication use Z79.899 and Mild intellectual disabilities F70 [facility] [place] [id number] [address] Apr, High risk medication use Z79.899 ; Paranoid schizophrenia, chronic condition F20.0 and Mild intellectual disabilities F70 [facility] [id number] [id number] Apr, Encounter for dental examination Z01.20 [facility] [place] [id number] [address] Apr, [facility] [place] [id number] [place] [address] Mar, Paranoid schizophrenia, chronic condition F20.0 ; Mildly mentally retarded F70 and High risk medication use Z79.899 [facility] [place] [id number] [place] [address] Feb, Paranoid schizophrenia F20.0 [facility] [place] [id number] [place] [address] Dec, [facility] [place] [id number] [place] [address] Dec, Paranoid schizophrenia, chronic condition F20.0 and Mild mental retardation F70 [facility] [place] [id number] [place] [address] Dec, [facility] [place] [id number] [place] [address] Dec, [facility] [place] [id number] [place] [address] Dec, [facility] [place] [address] [address] Dec, High risk medication use Z79.899 and Hyperlipemia E78.5 [facility] [place] [id number] [address] Nov, [facility] [place] [id number] [place] [address] Sep, [facility] [place] [id number] [place] [address] Sep, Paranoid schizophrenia, chronic condition 295.32 and Mild mental retardation 317 [facility] [place] [id number] [place] [address] 14 Jun, 2014 [facility] [place] [facility] [address] [id number] [place] [address] 13 Jun, 2014 [facility] [place] [facility] [address] [id number] [place] [address] Apr, 2014 [facility] [place] [facility] [address] [id number] [place] [address] Apr, 2014 [facility] [place] [facility] [address] [id number] [place] [address] Apr, 2014 [facility] [place] [facility] [address] [id number] [place] [address] Apr, 2014 [facility] [place] [facility] [address] [id number] [place] [address] Apr, [facility] [place] [facility] [address] [id number] [place] [address] Apr, [facility] [place] [facility] [address] [id number] [place] [address] Mar, [facility] [place] [facility] [address] [id number] [place] [address] Mar, [facility] [place] [facility] [address] [id number] [place] [address] Mar, [facility] [place] [facility] [address] [id number] [place] [address] Mar, [facility] [place] [facility] [address] [id number] [place] [address] Mar, [facility] [place] [facility] [address] [id number] [place] [address] Mar, [facility] [place] [facility] [address] [id number] [place] [address] Feb, [facility] [place] [facility] [address] [id number] [place] [address] Feb, [facility] [place] [facility] [address] [id number] [place] [address] Jan, [facility] [place] [facility] [address] [id number] [place] [address] Jan, [facility] [place] [facility] [address] [id number] [place] [address] Jan, [facility] [place] [facility] [address] [id number] [place] [address] Jan, [facility] [place] [facility] [address] [id number] [place] [address] Jan, [facility] [place] [facility] [address] [id number] [place] [address] Jan, [facility] [place] [facility] [address] [id number] [place] [address] Jan, [facility] [place] [facility] [address] [id number] [place] [address] Dec, [facility] [place] [facility] [address] [id number] [place] [address] Dec, [facility] [place] [facility] [address] [id number] [place] [address] Dec, [facility] [place] [facility] [address] [id number] [place] [address] Dec, [facility] [place] [facility] [address] [id number] [address] Dec, [facility] [place] [facility] [address] [id number] [place] [address] Dec, [facility] [place] [facility] [address] [id number] [place] [address] Dec, [facility] [place] [facility] [address] [id number] [address] Dec, [facility] [place] [facility] [address] [id number] [address] Nov, [facility] [place] [facility] [address] [id number] [place] [address] Nov, [facility] [place] [facility] [address] [id number] [place] [address] Nov, [facility] [place] [facility] [address] [id number] [place] [address] Nov, [facility] [place] [facility] [address] [id number] [place] [address] Oct, [facility] [place] [facility] [address] [id number] [place] [address] Oct, [facility] [place] [facility] [address] [id number] [place] [address] Oct, [facility] [place] [facility] [address] [id number] [place] [address] Oct, [facility] [place] [facility] [address] [id number] [place] [address] Oct, [facility] [place] [facility] [address] [id number] [place] [address] Oct, [facility] [place] [facility] [address] [id number] [place] [address] Sep, [facility] [place] [facility] [address] [id number] [place] [address] Sep, [facility] [place] [facility] [address] [id number] [place] [address] Sep, [facility] [place] [facility] [address] [id number] [place] [address] Sep, [facility] [place] [facility] [address] [id number] [place] [address] Sep, [facility] [place] [facility] [address] [id number] [place] [address] Sep, [facility] [place] [facility] [address] [id number] [place] [address] Sep, [facility] [place] [facility] [address] [id number] [place] [address] Sep, [facility] [place] [facility] [address] [id number] [place] [address] Sep, [facility] [place] [facility] [address] [id number] [place] [address] Sep, [facility] [place] [facility] [address] [id number] [place] [address] Aug, [facility] [place] [facility] [address] [id number] [place] [address] Aug, [facility] [place] [facility] [address] [id number] [place] [address] Aug, [facility] [place] [facility] [address] [id number] [place] [address] Aug, [facility] [place] [facility] [address] [id number] [place] [address] Aug, [facility] [place] [facility] [address] [id number] [place] [address] Aug, [facility] [place] [facility] [address] [id number] [place] [address] Aug, [facility] [place] [facility] [address] [id number] [place] [address] Aug, [facility] [place] [facility] [address] [id number] [place] [address] Aug, [facility] [place] [facility] [address] [id number] [place] [address] Aug, [facility] [place] [facility] [address] [id number] [place] [address] July, [facility] [place] [facility] [address] [id number] [place] [address] July, [facility] [place] [facility] [address] [id number] [place] [address] July, [facility] [place] [facility] [address] [id number] [place] [address] July, [facility] [place] [facility] [address] [id number] [place] [address] July, [facility] [place] [facility] [address] [id number] [place] [address] July, [facility] [place] [facility] [address] [id number] [place] [address] July, [facility] [place] [facility] [address] [id number] [place] [address] July, [facility] [place] [facility] [address] [id number] [place] [address] Jun, [facility] [place] [facility] [address] [id number] [place] [address] Jun, [facility] [place] [facility] [address] [id number] [place] [address] Jun, [facility] [place] [facility] [address] [id number] [place] [address] Jun, [facility] [place] [facility] [address] [id number] [place] [address] May, [facility] [place] [facility] [address] [id number] [place] [address] May, [facility] [place] [facility] [address] [id number] [place] [address] May, [facility] [place] [facility] [address] [id number] [place] [address] May, [facility] [place] [facility] [address] [id number] [place] [address] May, [facility] [place] [facility] [address] [id number] [place] [address] May, [facility] [place] [facility] [address] [id number] [place] [address] Apr, [facility] [place] [facility] [address] [id number] [place] [address] Apr, [facility] [place] [facility] [address] [id number] [place] [address] Apr, [facility] [place] [facility] [address] [id number] [place] [address] Apr, [facility] [place] [facility] [address] [id number] [place] [address] Apr, [facility] [place] [facility] [address] [id number] [place] [address] Apr, [facility] [place] [facility] [address] [id number] [place] [address] Apr, [facility] [place] [facility] [address] [id number] [place] [address] Apr, [facility] [place] [facility] [address] [id number] [place] [address] Apr, [facility] [place] [facility] [address] [id number] [place] [address] Apr, [facility] [place] [facility] [address] [id number] [place] [address] Mar, [facility] [place] [facility] [address] [id number] [place] [address] Mar, [facility] [place] [facility] [address] [id number] [place] [address] Mar, [facility] [place] [facility] [address] [id number] [place] [address] Mar, [facility] [place] [facility] [address] [id number] [place] [address] Mar, [facility] [place] [facility] [address] [id number] [place] [address] Mar, [facility] [place] [facility] [address] [id number] [place] [address] Mar, [facility] [place] [facility] [address] [id number] [place] [address] Mar, [facility] [place] [facility] [address] [id number] [place] [address] Feb, [facility] [place] [facility] [address] [id number] [place] [address] Feb, [facility] [place] [facility] [address] [id number] [place] [address] Feb, [facility] [place] [facility] [address] [id number] [place] [address] Feb, [facility] [place] [facility] [address] [id number] [place] [address] Feb, [facility] [place] [facility] [address] [id number] [place] [address] Feb, [facility] [place] [facility] [address] [id number] [place] [address] Feb, [facility] [place] [facility] [address] [id number] [address] Feb, [facility] [place] [facility] [address] [id number] [address] Feb, [facility] [place] [facility] [address] [id number] [place] [address] Feb, [facility] [place] [facility] [address] [id number] [place] [address] Jan, [facility] [place] [facility] [address] [id number] [place] [address] Jan, [facility] [place] [facility] [address] [id number] [place] [address] 20 Jan, 2013 [facility] [address] [id number] [place] [address] 20 Jan, 2013 [facility] [place] [facility] [address] [id number] [place] [address] 18 Jan, 2013 [facility] [place] [facility] [address] [id number] [place] [address] 15 Jan, 2013 [facility] [place] [facility] [address] [id number] [place] [address] 15 Jan, 2013 [facility] [place] [facility] [address] [id number] [place] [address] 14 Jan, 2013 [facility] [place] [facility] [address] [id number] [place] [address] 14 Jan, 2013 [facility] [place] [facility] [address] [id number] [place] [address] 06 Jan, 2013 [facility] [place] [facility] [address] [id number] [place] [address] 06 Jan, 2013 [facility] [place] [facility] [address] [id number] [place] [address] 05 Jan, 2013 [facility] [place] [facility] [address] [id number] [place] [address] 05 Jan, 2013 [facility] [place] [facility] [address] [id number] [place] [address] Dec, [facility] [place] [facility] [address] [id number] [address] Dec, [facility] [place] [facility] [address] [id number] [place] [address] Dec, [facility] [place] [facility] [address] [id number] [place] [address] Dec, [facility] [place] [facility] [address] [id number] [place] [address] 27 Nov, 2012 [facility] [place] [facility] [address] [id number] [place] [address] Nov, [facility] [place] [facility] [address] [id number] [place] [address] Nov, [facility] [place] [facility] [address] [id number] [place] [address] Oct, [facility] [place] [facility] [address] [id number] [place] [address] Oct, [facility] [place] [facility] [address] [id number] [place] [address] Oct, [facility] [place] [facility] [address] [id number] [place] [address] Oct, [facility] [place] [facility] [address] [id number] [place] [address] Oct, [facility] [place] [facility] [address] [id number] [place] [address] Oct, [facility] [place] [facility] [address] [id number] [place] [address] Sep, [facility] [place] [facility] [address] [id number] [place] [address] Sep, [facility] [place] [facility] [address] [id number] [place] [address] Sep, [facility] [place] [facility] [address] [id number] [place] [address] Sep, [facility] [place] [facility] [address] [id number] [place] [place] [address] Sep, [facility] [place] [facility] [address] [id number] [place] [address] Sep, [facility] [place] [facility] [address] [id number] [place] [address] Sep, [facility] [place] [facility] [address] [id number] [place] [address] Sep, [facility] [address] [id number] [place] [address] Sep, [facility] [place] [facility] [address] [id number] [place] [address] Aug, [facility] [place] [facility] [address] [id number] [place] [address] Aug, [facility] [place] [facility] [address] [id number] [place] [address] Aug, [facility] [place] [facility] [address] [id number] [place] [address] Aug, [facility] [place] [facility] [address] [id number] [place] [address] Aug, [facility] [place] [facility] [address] [id number] [place] [address] Aug, [facility] [place] [facility] [address] [id number] [place] [address] Aug, [facility] [place] [facility] [address] [id number] [place] [address] July, [facility] [place] [facility] [address] [id number] [place] [address] July, [facility] [place] [facility] [address] [id number] [place] [address] July, [facility] [place] [facility] [address] [id number] [place] [address] Jun, [facility] [place] [facility] [address] [id number] [place] [address] Jun, [facility] [place] [facility] [address] [id number] [place] [address] Jun, [facility] [place] [facility] [address] [id number] [place] [address] Jun, [facility] [place] [facility] [address] [id number] [place] [address] 29 May, 2012 [facility] [address] [id number] [place] [address] 18 May, 2012 [facility] [address] [id number] [place] [address] 18 May, 2012 [facility] [address] [id number] [place] [address] 15 May, 2012 [facility] [address] [id number] [place] [address] 14 May, 2012 [facility] [address] [id number] [place] [address] 07 May, 2012 [facility] [address] [id number] [place] [address] 06 May, 2012 [facility] [address] [id number] [place] [address] 04 May, 2012 [facility] [address] [id number] [place] [address] 18 Apr, 2012 [facility] [address] [id number] [place] [address] 17 Feb, 2012 [facility] [address] [id number] [place] [address] 17 Feb, 2012 [facility] [address] [id number] [place] [address] 17 Feb, 2012 [facility] [address] [id number] [place] [address] 17 Feb, 2012 [facility] [address] [id number] [place] [address] 13 Feb, 2012 [facility] [address] [id number] [place] [address] 13 Feb, 2012 [facility] [address] [id number] [place] [address] Feb, [facility] [place] [facility] [address] [id number] [place] [address] Feb, [facility] [place] [facility] [address] [id number] [place] [address] Feb, [facility] [place] [facility] [address] [id number] [place] [address] Feb, [facility] [place] [facility] [address] [id number] [place] [address] Jan, [facility] [place] [facility] [address] [id number] [place] [address] Jan, [facility] [place] [facility] [address] [id number] [place] [address] Jan, [facility] [place] [facility] [address] [id number] [place] [address] Jan, [facility] [place] [facility] [address] [id number] [address] Jan, [facility] [place] [facility] [address] [id number] [place] [address] Jan, [facility] [place] [facility] [address] [id number] [address] Jan, [facility] [place] [facility] [address] [id number] [place] [address] Jan, [facility] [place] [facility] [address] [id number] [address] Dec, [facility] [place] [facility] [address] [id number] [place] [address] Dec, [facility] [place] [facility] [address] [id number] [address] Dec, [facility] [place] [facility] [address] [id number] [place] [address] Dec, [facility] [place] [facility] [address] [id number] [address] Dec, [facility] [place] [facility] [address] [id number] [place] [address] Dec, [facility] [place] [facility] [address] [id number] [place] [address] Dec, [facility] [place] [facility] [address] [id number] [place] [address] Nov, [facility] [place] [facility] [address] [id number] [place] [address] Nov, [facility] [place] [facility] [address] [id number] [place] [address] Nov, [facility] [place] [facility] [address] [id number] [place] [address] Oct, [facility] [place] [facility] [address] [id number] [place] [address] Oct, [facility] [place] [facility] [address] [id number] [place] [address] Oct, [facility] [place] [facility] [address] [id number] [place] [address] Oct, [facility] [place] [facility] [address] [id number] [place] [address] Sep, [facility] [place] [facility] [address] [id number] [place] [address] Sep, [facility] [place] [facility] [address] [id number] [place] [address] Sep, [facility] [place] [facility] [address] [id number] [place] [address] Aug, [facility] [place] [facility] [address] [id number] [place] [address] Aug, [facility] [place] [facility] [address] [id number] [place] [address] July, [facility] [place] [facility] [address] [id number] [place] [address] July, [facility] [place] [facility] [address] [id number] [place] [address] July, [facility] [place] [facility] [address] [id number] [place] [address] Jun, [facility] [place] [facility] [address] [id number] [place] [address] Jun, [facility] [place] [facility] [address] [id number] [place] [address] May, [facility] [place] [facility] [address] [id number] [place] [address] Apr, [facility] [place] [facility] [address] [id number] [place] [address] Apr, [facility] [place] [facility] [address] [id number] [place] [address] Apr, [facility] [place] [facility] [address] [id number] [place] [address] Mar, [facility] [place] [facility] [address] [id number] [place] [address] Mar, [facility] [place] [facility] [address] [id number] [place] [address] Mar, [facility] [place] [facility] [address] [id number] [place] [address] Mar, [facility] [place] [facility] [address] [id number] [place] [address] Feb, [facility] [place] [facility] [address] [id number] [place] [address] Feb, [facility] [place] [facility] [address] [id number] [place] [address] Feb, [facility] [place] [facility] [address] [id number] [place] [address] 05 Feb, 2011 [facility] [place] [facility] [address] [id number] [place] [address] 30 Jan, 2011 [facility] [place] [facility] [address] [id number] [place] [address] 17 Jan, 2011 [facility] [place] [facility] [address] [id number] [place] [address] 16 Jan, 2011 [facility] [place] [facility] [address] [id number] [place] [address] 16 Jan, 2011 [facility] [place] [facility] [address] [id number] [place] [address] Jan, [facility] [place] [facility] [address] [id number] [place] [address] Dec, [facility] [place] [facility] [address] [id number] [place] [address] Sep, [facility] [place] [facility] [address] [id number] [place] [address] 31 Feb, 2010 [facility] [place] [facility] [address] [id number] [place] [address] 30 Feb, 2010 [facility] [place] [facility] [address] [id number] [place] [address] Feb, [facility] [place] [facility] [address] [id number] [address] 29 Dec, 2009 [facility] [place] [facility] [address] [id number] [place] [address] Dec, [facility] [place] [facility] [address] [id number] [place] [address] Oct, [facility] [place] [facility] [address] [id number] [place] [address] 15 Aug, 2009 [facility] [place] [facility] [address] [id number] [place] [address] 15 Feb, 2009 [facility] [place] [facility] [address] [id number] [address] Feb, [facility] [place] [id number] [address] Jan, [facility] [place] [id number] [address] Jan, [facility] [place] [id number] [address] Dec, [facility] [place] [id number] [address] Dec, [facility] [place] [id number] [address] Nov, IMMUNIZATIONS No Known Immunizations SOCIAL HISTORY Never Assessed REASON FOR [place] [place] VITAL SIGNS MEDICATIONS Unknown [...]
--- OUTSIDE RECORDS SUMMARY | 2018-09-29 17:34 | XMS REPORT ---
Author Author HARRY LCAUS [facility] Address [address] [place] [address] Care Team Providers Care Filter Washer Name Role Phone HARRY CLAUS Unavailable PROBLEMS Type Condition ICD9-CM Code [id number] Code Onset Dates Condition Status SNOMED Code Problem Paranoid schizophrenia, chronic condition 295.32 Active 39441216 Problem Intermittent explosive disorder 312.34 Active 91714193 Problem Hyperlipemia E78.5 Active 81627905 Problem Mildly mentally retarded F70 Active 48395912 Problem Stress incontinence, male N39.3 Active 149418932 Problem Paranoid schizophrenia, chronic condition F20.0 Active 27704039 Problem Mild intellectual disabilities F70 Active 51461515 Problem Enuresis R32 Active 90790374 Problem High risk medication use Z79.899 Active 138001433 Problem 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 Active 18801608 Problem Seizures R56.9 Active 61081074 Problem Unsteady gait R26.81 Active 87666455 Problem Severe episode of recurrent major depressive disorder, with psychotic features F33.3 Active 84573780 Problem Constipation, unspecified constipation type K59.00 Active 16377012 Problem Dysphagia, unspecified type R13.10 Active 85832483 ALLERGIES No Information ENCOUNTERS Encounter Location Date Diagnosis [place] [address] [facility] [id number] [address] Sep, [facility] [id number] [address] Aug, [place] [id number] [address] Jun, Paranoid schizophrenia, chronic condition F20.0 ; 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 ; Mild intellectual disabilities F70 and High risk medication use Z79.899 [place] [address] [address] Jun, Paranoid schizophrenia, chronic condition F20.0 ; 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 and Mild intellectual disabilities F70 [facility] [address] [address] May, Dental examination Z01.20 [facility] [id number] [place] [address] Mar, Paranoid schizophrenia, chronic condition F20.0 and Mild intellectual disabilities F70 [facility] [id number] [place] [address] Mar, Paranoid schizophrenia, chronic condition F20.0 ; High risk medication use Z79.899 ; Mild intellectual disabilities F70 and Anxiety F41.9 [facility] [address] [id number] [address] Feb, [facility] [id number] [place] [address] Nov, Paranoid schizophrenia, chronic condition F20.0 ; Mild intellectual disabilities F70 ; Enuresis R32 ; Dysphagia, unspecified type R13.10 and High risk medication use Z79.899 [facility] [address] [address] Oct, [facility] [address] [address] Oct, [facility] [id number] [place] [address] Oct, Paranoid schizophrenia, chronic condition F20.0 ; Enuresis R32 ; Mild intellectual disabilities F70 ; High risk medication use Z79.899 and Dysphagia, unspecified type R13.10 [facility] [address] [address] July, Paranoid schizophrenia, chronic condition F20.0 and Mild intellectual disabilities F70 [facility] [id number] [place] [address] Jun, Paranoid schizophrenia, chronic condition F20.0 [place] [id number] [place] [address] May, [facility] [id number] [place] [address] 13 Apr, 2017 Paranoid schizophrenia, chronic condition F20.0 ; Mild intellectual disabilities F70 and High risk medication use Z79.899 [place] [id number] [place] [address] Apr, [place] [address] [address] Mar, [place] [id number] [place] [address] Mar, [facility] [id number] [place] [address] Mar, Contusion of nose, initial encounter S00.33XA [place] [id number] [place] [address] Mar, Paranoid schizophrenia, chronic condition F20.0 ; Severe episode of recurrent major depressive disorder, with psychotic features F33.3 and Mild intellectual disabilities F70 [facility] [id number] [place] [address] Mar, Constipation, unspecified constipation type K59.00 and Abrasion of right ear, initial encounter S00.411A [place] [id number] [place] [address] Mar, [facility] [id number] [place] [id number] Feb, Encounter for dental examination and cleaning without abnormal findings Z01.20 [place] [id number] [place] [address] Feb, [place] [address] [place] [address] Feb, Paranoid schizophrenia, chronic condition F20.0 ; Mild intellectual disabilities F70 and High risk medication use Z79.899 [facility] [address] [address] Jan, [facility] [address] [address] Jan, Unsteady gait R26.81 [facility] [address] [address] Dec, Encounter for immunization Z23 [facility] [id number] [place] [address] Nov, [facility] [id number] [place] [address] Oct, Paranoid schizophrenia, chronic condition F20.0 ; Mild intellectual disabilities F70 and High risk medication use Z79.899 [facility] [address] [address] Sep, [facility] [id number] [place] [address] July, [facility] [address] [address] Jun, High risk medication use Z79.899 [facility] [id number] [address] Apr, [facility] [address] [address] Apr, Paranoid schizophrenia, chronic condition F20.0 ; Mild intellectual disabilities F70 and High risk medication use Z79.899 [facility] [address] [address] Apr, [facility] [id number] [address] Feb, [facility] [id number] [address] Jan, [facility] [address] [address] Jan, [facility] [id number] [address] Jan, Paranoid schizophrenia, chronic condition F20.0 [facility] [address] [address] Dec, Paranoid schizophrenia, chronic condition F20.0 ; Mild intellectual disabilities F70 and High risk medication use Z79.899 [facility] [address] [address] Dec, [facility] [address] [address] Nov, Paranoid schizophrenia, chronic condition F20.0 ; Mild intellectual disabilities F70 and High risk medication use Z79.899 [facility] [address] [address] Oct, [facility] [address] [address] Oct, [facility] [address] [address] Oct, [facility] [address] [address] Oct, [facility] [id number] [address] Aug, [facility] [id number] [address] Jun, Paranoid schizophrenia, chronic condition F20.0 ; High risk medication use Z79.899 and Mild intellectual disabilities F70 [facility] [id number] [address] Apr, High risk medication use Z79.899 ; Paranoid schizophrenia, chronic condition F20.0 and Mild intellectual disabilities F70 [facility] [address] [address] Apr, Encounter for dental examination Z01.20 [facility] [address] [address] Apr, [facility] [id number] [place] [address] Mar, Paranoid schizophrenia, chronic condition F20.0 ; Mildly mentally retarded F70 and High risk medication use Z79.899 [facility] [id number] [place] [address] Feb, Paranoid schizophrenia F20.0 [facility] [id number] [place] [address] Dec, [facility] [id number] [place] [address] Dec, Paranoid schizophrenia, chronic condition F20.0 and Mild mental retardation F70 [facility] [id number] [place] [address] Dec, [facility] [address] [address] Dec, [facility] [id number] [place] [address] Dec, [facility] [id number] [place] [address] Dec, High risk medication use Z79.899 and Hyperlipemia E78.5 [facility] [address] [address] Nov, [facility] [id number] [place] [address] Sep, [facility] [address] [place] [address] Sep, Paranoid schizophrenia, chronic condition 295.32 and Mild mental retardation 317 [facility] [address] [facility] [id number] [place] [address] 14 Jun, 2014 [facility] [address] [place] [address] Jun, [facility] [address] [facility] [id number] [place] [address] Apr, 2014 [facility] [id number] [place] [address] Apr, 2014 [facility] [id number] [place] [address] Apr, 2014 [facility] [address] [place] [address] Apr, [facility] [id number] [place] [address] Apr, [facility] [address] [place] [address] Apr, [facility] [address] [place] [address] Mar, [facility] [address] [address] Mar, [facility] [address] [address] Mar, [facility] [place] [facility] [address] [address] Mar, [facility] [place] [facility] [address] [address] Mar, [facility] [place] [facility] [address] [place] [address] Mar, [facility] [place] [facility] [address] [id number] [place] [address] Feb, [facility] [place] [facility] [address] [id number] [place] [address] Feb, [facility] [place] [facility] [address] [id number] [place] [address] Jan, [facility] [place] [facility] [address] [id number] [place] [address] Jan, [facility] [place] [facility] [address] [id number] [place] [address] Jan, [facility] [place] [facility] [address] [id number] [place] [address] Jan, [facility] [place] [facility] [address] [id number] [place] [address] Jan, [facility] [place] [facility] [address] [id number] [place] [address] Jan, [facility] [place] [facility] [address] [id number] [place] [address] Jan, [facility] [place] [facility] [address] [id number] [place] [address] Dec, [facility] [place] [facility] [address] [id number] [place] [address] Dec, [facility] [place] [facility] [address] [id number] [place] [address] Dec, [facility] [place] [facility] [address] [id number] [place] [address] Dec, [facility] [place] [facility] [address] [id number] [place] [address] Dec, [facility] [place] [facility] [address] [id number] [place] [address] Dec, [facility] [place] [facility] [address] [id number] [place] [address] Dec, [facility] [place] [facility] [address] [id number] [place] [address] Dec, [facility] [place] [facility] [address] [id number] [place] [address] Nov, [facility] [place] [facility] [address] [id number] [place] [address] Nov, [facility] [place] [facility] [address] [id number] [place] [address] Nov, [facility] [place] [facility] [address] [id number] [place] [address] Nov, [facility] [place] [facility] [address] [id number] [place] [address] Oct, [facility] [place] [facility] [address] [id number] [place] [address] Oct, [facility] [place] [facility] [address] [id number] [place] [address] Oct, [facility] [place] [facility] [address] [id number] [place] [address] Oct, [facility] [place] [facility] [address] [id number] [place] [address] Oct, [facility] [place] [facility] [address] [id number] [place] [address] Oct, [facility] [place] [facility] [address] [id number] [address] Sep, [facility] [place] [facility] [address] [id number] [place] [address] Sep, [facility] [place] [facility] [address] [id number] [place] [address] Sep, [facility] [place] [facility] [address] [id number] [place] [address] Sep, [facility] [place] [facility] [address] [id number] [place] [address] Sep, [facility] [place] [facility] [address] [id number] [place] [address] Sep, [facility] [place] [facility] [address] [id number] [place] [address] Sep, [facility] [place] [facility] [address] [id number] [place] [address] Sep, [facility] [place] [facility] [address] [id number] [place] [address] Sep, [facility] [place] [facility] [address] [id number] [place] [address] Sep, [facility] [place] [facility] [address] [id number] [place] [address] Aug, [facility] [place] [facility] [address] [id number] [place] [address] Aug, [facility] [place] [facility] [address] [id number] [place] [address] Aug, [facility] [place] [facility] [address] [id number] [place] [address] Aug, [facility] [place] [facility] [address] [id number] [place] [address] Aug, [facility] [place] [facility] [address] [id number] [place] [address] Aug, [facility] [place] [facility] [address] [id number] [place] [address] Aug, [facility] [place] [facility] [address] [id number] [place] [address] Aug, [facility] [place] [facility] [address] [id number] [place] [address] Aug, [facility] [place] [facility] [address] [id number] [place] [address] Aug, [facility] [place] [facility] [address] [id number] [place] [address] July, [facility] [place] [facility] [address] [id number] [place] [address] July, [facility] [place] [facility] [address] [id number] [place] [address] July, [facility] [place] [facility] [address] [id number] [place] [address] July, [facility] [place] [facility] [address] [id number] [place] [address] July, [facility] [place] [facility] [address] [id number] [place] [address] July, [facility] [place] [facility] [address] [id number] [place] [address] July, [facility] [place] [facility] [address] [id number] [place] [address] July, [facility] [place] [facility] [address] [id number] [place] [address] Jun, [facility] [place] [facility] [address] [id number] [place] [address] Jun, [facility] [place] [facility] [address] [id number] [place] [address] Jun, [facility] [place] [facility] [address] [id number] [place] [address] Jun, [facility] [place] [facility] [address] [id number] [place] [address] May, [facility] [place] [facility] [address] [id number] [place] [address] May, [facility] [place] [facility] [address] [id number] [place] [address] 13 May, 2013 [facility] [place] [facility] [address] [id number] [place] [address] May, [facility] [place] [facility] [address] [id number] [place] [address] May, [facility] [place] [facility] [address] [id number] [place] [address] May, [facility] [place] [facility] [address] [id number] [place] [address] Apr, [facility] [place] [facility] [address] [id number] [place] [address] Apr, [facility] [place] [facility] [address] [id number] [place] [address] Apr, [facility] [place] [facility] [address] [id number] [place] [address] Apr, [facility] [place] [facility] [address] [facility] [id number] [place] [address] Apr, [facility] [place] [facility] [address] [id number] [place] [address] Apr, [facility] [place] [facility] [address] [id number] [place] [address] Apr, [facility] [place] [facility] [address] [facility] [id number] [place] [address] Apr, [facility] [place] [facility] [address] [facility] [id number] [place] [address] Apr, [facility] [place] [facility] [address] [id number] [place] [address] Apr, [facility] [place] [facility] [address] [id number] [place] [address] Mar, [facility] [place] [facility] [address] [facility] [id number] [place] [address] Mar, [facility] [place] [facility] [address] [id number] [place] [address] Mar, [facility] [place] [facility] [address] [id number] [place] [address] Mar, [facility] [address] [id number] [place] [address] Mar, [facility] [address] [id number] [place] [address] Mar, [facility] [address] [id number] [place] [address] Mar, [facility] [address] [id number] [place] [address] Mar, [facility] [address] [id number] [place] [address] Feb, [facility] [address] [id number] [place] [address] Feb, [facility] [address] [id number] [place] [address] Feb, [facility] [address] [id number] [place] [address] Feb, [facility] [address] [id number] [place] [address] Feb, [facility] [address] [id number] [place] [address] Feb, [facility] [address] [id number] [place] [address] Feb, [facility] [address] [id number] [place] [address] Feb, [facility] [place] [facility] [address] [id number] [place] [address] Feb, [facility] [address] [id number] [place] [address] 05 Feb, 2013 [facility] [place] [facility] [address] [id number], [place] [address] Jan, [facility] [place] [facility] [address] [id number] [place] [address] Jan, [facility] [place] [facility] [address] [id number], [place] [address] Jan, [facility] [place] [facility] [address] [id number] [place] [address] Jan, [facility] [place] [facility] [address] [id number], [place] [address] 18 Jan, 2013 [facility] [place] [facility] [address] [id number] [place] [address] 15 Jan, 2013 [facility] [place] [facility] [address] [id number] [place] [address] 15 Jan, 2013 [facility] [place] [facility] [address] [id number], [place] [address] 14 Jan, 2013 [facility] [place] [facility] [address] [id number], [place] [address] 14 Jan, 2013 [facility] [place] [facility] [address] [id number], [place] [address] Jan, [facility] [place] [facility] [address] [id number], [place] [address] Jan, [facility] [place] [facility] [address] [id number], [place] [address] 05 Jan, 2013 [facility] [place] [facility] [address] [id number], [place] [address] 05 Jan, 2013 [facility] [place] [facility] [address] [id number], [place] [address] Dec, [facility] [place] [facility] [address] [id number], [place] [address] Dec, [facility] [place] [facility] [address] [id number], [place] [address] Dec, [facility] [place] [facility] [address] [id number] [place] [address] Dec, [facility] [address] [id number] [place] [address] Nov, [facility] [place] [facility] [address] [id number] [place] [address] Nov, [facility] [address] [id number] [place] [address] Nov, [facility] [place] [facility] [address] [id number] [place] [address] Oct, [facility] [address] [id number] [place] [address] Oct, [facility] [address] [id number] [place] [address] Oct, [facility] [address] [id number] [place] [address] Oct, [facility] [address] [id number] [place] [address] Oct, [facility] [place] [facility] [address] [id number] [place] [address] Oct, [facility] [address] [id number] [place] [address] Sep, [facility] [place] [facility] [address] [id number] [place] [address] Sep, [facility] [place] [facility] [address] [id number] [place] [address] Sep, [facility] [place] [facility] [address] [id number] [place] [address] Sep, [facility] [place] [facility] [address] [id number] [place] [address] Sep, [facility] [place] [facility] [address] [id number] [place] [address] Sep, [facility] [address] [id number] [place] [address] Sep, [facility] [place] [facility] [address] [id number] [place] [address] Sep, [facility] [place] [facility] [address] [id number] [place] [address] Sep, [facility] [place] [facility] [address] [id number] [place] [address] Aug, [facility] [place] [facility] [address] [id number] [place] [address] Aug, [facility] [place] [facility] [address] [id number] [place] [address] Aug, [facility] [place] [facility] [address] [id number] [place] [address] Aug, [facility] [place] [facility] [address] [id number] [place] [address] Aug, [facility] [place] [facility] [address] [id number] [place] [address] Aug, [facility] [place] [facility] [address] [id number] [place] [address] Aug, [facility] [place] [facility] [address] [id number] [place] [address] July, [facility] [place] [facility] [address] [id number] [place] [address] July, [facility] [place] [facility] [address] [id number] [place] [address] July, [facility] [place] [facility] [address] [id number] [place] [address] Jun, [facility] [place] [facility] [address] [id number] [place] [address] Jun, [facility] [place] [facility] [address] [id number] [place] [address] 05 Jun, 2012 [facility] [address] [id number] [place] [address] 02 Jun, 2012 [facility] [address] [id number] [place] [address] 29 May, 2012 [facility] [address] [id number] [place] [address] 18 May, 2012 [facility] [address] [id number] [place] [address] 18 May, 2012 [facility] [address] [id number] [place] [address] 15 May, 2012 [facility] [address] [id number] [place] [address] 14 May, 2012 [facility] [address] [id number] [place] [address] 07 May, 2012 [facility] [address] [id number] [place] [address] 06 May, 2012 [facility] [address] [id number] [place] [address] 04 May, 2012 [facility] [address] [id number] [place] [address] 18 Apr, 2012 [facility] [address] [id number] [place] [address] 17 Feb, 2012 [facility] [address] [id number] [place] [address] 17 Feb, 2012 [facility] [address] [id number] [place] [address] 17 Feb, 2012 [facility] [address] [id number] [place] [address] 17 Feb, 2012 [facility] [address] [id number] [place] [address] 13 Feb, 2012 [facility] [place] [facility] [address] [id number] [place] [address] Feb, [facility] [place] [facility] [address] [id number] [place] [address] Feb, [facility] [place] [facility] [address] [id number] [place] [address] Feb, [facility] [place] [facility] [address] [id number] [place] [address] Feb, [facility] [place] [facility] [address] [id number] [place] [address] Feb, [facility] [place] [facility] [address] [id number] [place] [address] Jan, [facility] [place] [facility] [address] [id number] [place] [address] Jan, [facility] [place] [facility] [address] [id number] [place] [address] Jan, [facility] [place] [facility] [address] [id number] [place] [address] Jan, [facility] [place] [facility] [address] [id number] [place] [address] Jan, [facility] [place] [facility] [address] [id number] [place] [address] Jan, [facility] [place] [facility] [address] [id number] [place] [address] Jan, [facility] [place] [facility] [address] [id number] [place] [address] Jan, [facility] [place] [facility] [address] [id number] [place] [address] Dec, [facility] [place] [facility] [address] [id number] [place] [address] Dec, [facility] [place] [facility] [address] [id number] [place] [address] Dec, [facility] [place] [facility] [address] [id number] [place] [address] 16 Dec, 2011 [facility] [place] [facility] [address] [id number] [place] [address] Dec, [facility] [place] [facility] [address] [id number] [place] [address] Dec, [facility] [place] [facility] [address] [id number] [place] [address] Dec, [facility] [place] [facility] [address] [id number] [place] [address] 28 Nov, 2011 [facility] [place] [facility] [address] [id number] [place] [address] Nov, [facility] [place] [facility] [address] [id number] [place] [address] Nov, [facility] [place] [facility] [address] [id number] [place] [address] Oct, [facility] [place] [facility] [address] [id number] [place] [address] Oct, [facility] [place] [facility] [address] [id number] [place] [address] Oct, [facility] [place] [facility] [address] [id number] [place] [address] Oct, [facility] [place] [facility] [address] [id number] [address] Sep, [facility] [place] [facility] [address] [id number] [place] [address] Sep, [facility] [place] [facility] [address] [id number] [place] [address] Sep, [facility] [place] [facility] [address] [id number] [place] [address] Aug, [facility] [place] [facility] [address] [id number] [place] [address] Aug, [facility] [address] [id number] [place] [address] July, [facility] [address] [id number] [place] [address] July, [facility] [address] [id number] [place] [address] July, [facility] [address] [id number] [place] [address] Jun, [facility] [address] [id number] [place] [address] Jun, [facility] [address] [id number] [place] [address] May, [facility] [address] [id number] [place] [address] Apr, [facility] [address] [id number] [place] [address] Apr, [facility] [address] [id number] [place] [address] Apr, [facility] [address] [id number] [place] [address] Mar, [facility] [address] [id number] [place] [address] Mar, [facility] [address] [id number] [place] [address] Mar, [facility] [place] [facility] [address] [id number] [place] [address] Mar, [facility] [address] [id number] [place] [address] Feb, [facility] [address] [id number] [place] [address] Feb, [facility] [place] [facility] [address] [id number] [place] [address] 17 Feb, 2011 [facility] [place] [facility] [address] [id number] [place] [address] Feb, [facility] [place] [facility] [address] [id number] [place] [address] Jan, [facility] [place] [facility] [address] [id number] [place] [address] Jan, [facility] [place] [facility] [address] [id number] [place] [address] Jan, [facility] [place] [facility] [address] [id number] [place] [address] Jan, [facility] [place] [facility] [address] [id number] [place] [address] Jan, [facility] [place] [facility] [address] [id number] [place] [address] Dec, [facility] [place] [facility] [address] [id number] [place] [address] Sep, [facility] [place] [facility] [address] [id number] [place] [address] Feb, [facility] [place] [facility] [address] [id number] [place] [address] 30 Feb, 2010 [facility] [place] [facility] [address] [id number] [place] [address] Feb, [facility] [place] [facility] [address] [id number] [place] [address] 29 Dec, 2009 [facility] [place] [facility] [address] [id number] [place] [address] Dec, [facility] [place] [facility] [address] [id number] [place] [address] Oct, [facility] [place] [facility] [address] [id number], [place] [address] Aug, [facility] [id number] [address] Feb, [facility] [id number] [address] Feb, [facility] [id number] [place] [address] Jan, [facility] [id number] [place] [address] Jan, [facility] [id number] [place] [address] Dec, [facility] [id number] [address] Dec, [facility] [id number] [address] Nov, IMMUNIZATIONS No Known Immunizations SOCIAL HISTORY [...]
--- OUTSIDE RECORDS SUMMARY | 2018-09-29 17:35 | XMS REPORT ---
Author Author Migration, Doctor Organization [facility] Address Unknown Phone Unavailable Care Team Providers Care Environmental Advisor Name Role Phone Migration, Doctor Unavailable Unavailable PROBLEMS Type Condition ICD9-CM Code [id number] Code Onset Dates Condition Status SNOMED Code Problem Paranoid schizophrenia, chronic condition 295.32 Active 65995868 Problem Intermittent explosive disorder 312.34 Active 66526716 Problem Hyperlipemia E78.5 Active 56190000 Problem Mildly mentally retarded F70 Active 67992031 Problem Stress incontinence, male N39.3 Active 055258424 Problem Paranoid schizophrenia, chronic condition F20.0 Active 60648183 Problem Mild intellectual disabilities F70 Active 59794259 Problem Enuresis R32 Active 56807935 Problem High risk medication use Z79.899 Active 620712991 Problem 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 Active 00712979 Problem Seizures R56.9 Active 98932330 Problem Unsteady gait R26.81 Active 56461732 Problem Severe episode of recurrent major depressive disorder, with psychotic features F33.3 Active 29849586 Problem Constipation, unspecified constipation type K59.00 Active 63037807 Problem Dysphagia, unspecified type R13.10 Active 30985221 ALLERGIES No Information ENCOUNTERS Encounter Location Date Diagnosis [facility] [id number] [place] [address] Sep, [facility] [id number] [place] [address] Jun, Paranoid schizophrenia, chronic condition F20.0 ; 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 ; Mild intellectual disabilities F70 and High risk medication use Z79.899 [facility] [id number] [place] [address] Jun, Paranoid schizophrenia, chronic condition F20.0 ; 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 and Mild intellectual disabilities F70 [facility] [id number] [id number] May, Dental examination Z01.20 [facility] [id number] [place] [address] Mar, Paranoid schizophrenia, chronic condition F20.0 and Mild intellectual disabilities F70 [facility] [address] [address] Mar, Paranoid schizophrenia, chronic condition F20.0 ; High risk medication use Z79.899 ; Mild intellectual disabilities F70 and Anxiety F41.9 [facility] [address] [address] Feb, [facility] [id number] [place] [address] Nov, Paranoid schizophrenia, chronic condition F20.0 ; Mild intellectual disabilities F70 ; Enuresis R32 ; Dysphagia, unspecified type R13.10 and High risk medication use Z79.899 [facility] [address] [address] Oct, [facility] [id number] [place] [address] Oct, [facility] [address] [address] Oct, Paranoid schizophrenia, chronic condition F20.0 ; Enuresis R32 ; Mild intellectual disabilities F70 ; High risk medication use Z79.899 and Dysphagia, unspecified type R13.10 [facility] [address] [address] July, Paranoid schizophrenia, chronic condition F20.0 and Mild intellectual disabilities F70 [facility] [id number] [address] Jun, Paranoid schizophrenia, chronic condition F20.0 [facility] [address] [address] May, [facility] [id number] [place] [address] 13 Apr, 2017 Paranoid schizophrenia, chronic condition F20.0 ; Mild intellectual disabilities F70 and High risk medication use Z79.899 [facility] [id number] [place] [address] 08 Apr, 2017 [facility] [id number] [place] [address] Mar, [facility] [id number] [place] [address] Mar, [facility] [id number] [place] [address] Mar, Contusion of nose, initial encounter S00.33XA [facility] [id number] [place] [address] Mar, Paranoid schizophrenia, chronic condition F20.0 ; Severe episode of recurrent major depressive disorder, with psychotic features F33.3 and Mild intellectual disabilities F70 [facility] [id number] [place] [address] Mar, Constipation, unspecified constipation type K59.00 and Abrasion of right ear, initial encounter S00.411A [facility] [id number] [place] [address] Mar, [facility] [id number] [place] [id number] Feb, Encounter for dental examination and cleaning without abnormal findings Z01.20 [facility] [id number] [place] [address] Feb, [facility] [id number] [place] [address] Feb, Paranoid schizophrenia, chronic condition F20.0 ; Mild intellectual disabilities F70 and High risk medication use Z79.899 [facility] [address] [place] [address] Jan, [facility] [id number] [place] [address] Jan, Unsteady gait R26.81 [facility] [id number] [address] Dec, Encounter for immunization Z23 [facility] [id number] [place] [address] Nov, [facility] [id number] [place] [address] Oct, Paranoid schizophrenia, chronic condition F20.0 ; Mild intellectual disabilities F70 and High risk medication use Z79.899 [facility] [id number] [place] [address] Sep, [facility] [id number] [place] [address] July, [facility] [id number] [place] [address] Jun, High risk medication use Z79.899 [facility] [id number] [place] [address] Apr, [facility] [address] [address] Apr, Paranoid schizophrenia, chronic condition F20.0 ; Mild intellectual disabilities F70 and High risk medication use Z79.899 [facility] [id number] [address] Apr, [facility] [id number] [place] [address] Feb, [facility] [id number] [place] [address] Jan, [facility] [id number] [place] [address] Jan, [facility] [address] [facility] [id number] [address] Jan, Paranoid schizophrenia, chronic condition F20.0 [facility] [id number] [address] Dec, Paranoid schizophrenia, chronic condition F20.0 ; Mild intellectual disabilities F70 and High risk medication use Z79.899 [facility] [address] [address] Dec, [facility] [id number] [address] Nov, Paranoid schizophrenia, chronic condition F20.0 ; Mild intellectual disabilities F70 and High risk medication use Z79.899 [facility] [address] [address] Oct, [facility] [id number] [address] Oct, [facility] [id number] [address] Oct, [facility] [address] [address] Oct, [facility] [address] [address] Aug, [facility] [id number] [address] Jun, Paranoid schizophrenia, chronic condition F20.0 ; High risk medication use Z79.899 and Mild intellectual disabilities F70 [facility] [id number] [address] Apr, High risk medication use Z79.899 ; Paranoid schizophrenia, chronic condition F20.0 and Mild intellectual disabilities F70 [facility] [address] [id number] Apr, Encounter for dental examination Z01.20 [facility] [address] [address] Apr, [facility] [id number] [place] [address] Mar, Paranoid schizophrenia, chronic condition F20.0 ; Mildly mentally retarded F70 and High risk medication use Z79.899 [facility] [id number] [place] [address] Feb, Paranoid schizophrenia F20.0 [facility] [id number] [place] [address] Dec, [facility] [id number] [place] [address] Dec, Paranoid schizophrenia, chronic condition F20.0 and Mild mental retardation F70 [facility] [id number] [place] [address] Dec, [facility] [id number] [place] [address] Dec, [facility] [id number] [place] [address] Dec, [facility] [address] [address] Dec, High risk medication use Z79.899 and Hyperlipemia E78.5 [facility] [address] [address] Nov, [facility] [id number] [place] [address] Sep, [facility] [id number] [place] [address] Sep, Paranoid schizophrenia, chronic condition 295.32 and Mild mental retardation 317 [facility] [id number] [place] [address] 14 Jun, 2014 [facility] [place] [facility] [address] [id number] [place] [address] 13 Jun, 2014 [facility] [place] [facility] [address] [id number] [place] [address] Apr, 2014 [facility] [place] [facility] [address] [id number] [place] [address] Apr, 2014 [facility] [place] [facility] [address] [id number] [place] [address] Apr, 2014 [facility] [place] [facility] [address] [id number] [place] [address] Apr, 2014 [facility] [place] [facility] [address] [id number] [place] [address] Apr, [facility] [place] [facility] [address] [id number] [place] [address] Apr, [facility] [place] [facility] [address] [id number] [place] [address] Mar, [facility] [place] [facility] [address] [id number] [place] [address] Mar, [facility] [place] [facility] [address] [facility] [id number] [place] [address] Mar, [facility] [place] [facility] [address] [id number] [place] [address] Mar, [facility] [place] [facility] [address] [id number] [place] [address] Mar, [facility] [place] [facility] [address] [id number] [place] [address] Mar, [facility] [place] [facility] [address] [facility] [id number] [place] [address] Feb, [facility] [place] [facility] [address] [id number] [place] [address] Feb, [facility] [place] [facility] [address] [id number] [place] [address] Jan, [facility] [place] [facility] [address] [id number] [place] [address] Jan, [facility] [place] [facility] [address] [id number] [place] [address] Jan, [facility] [place] [facility] [address] [id number] [place] [address] Jan, [facility] [place] [facility] [address] [id number] [place] [address] Jan, [facility] [place] [facility] [address] [id number] [place] [address] Jan, [facility] [place] [facility] [address] [id number] [place] [address] Jan, [facility] [place] [facility] [address] [id number] [place] [address] Dec, [facility] [place] [facility] [address] [id number] [place] [address] Dec, [facility] [place] [facility] [address] [id number] [place] [address] Dec, [facility] [place] [facility] [address] [id number] [place] [address] Dec, [facility] [place] [facility] [address] [id number] [address] Dec, [facility] [place] [facility] [address] [id number] [place] [address] Dec, [facility] [place] [facility] [address] [id number] [place] [address] Dec, [facility] [place] [facility] [address] [id number] [address] Dec, [facility] [place] [facility] [address] [id number] [address] Nov, [facility] [place] [facility] [address] [id number] [place] [address] Nov, [facility] [place] [facility] [address] [id number] [place] [address] Nov, [facility] [place] [facility] [address] [id number] [place] [address] Nov, [facility] [place] [facility] [address] [id number] [place] [address] Oct, [facility] [place] [facility] [address] [id number] [place] [address] Oct, [facility] [place] [facility] [address] [id number] [place] [address] Oct, [facility] [place] [facility] [address] [id number] [place] [address] Oct, [facility] [place] [facility] [address] [id number] [place] [address] Oct, [facility] [place] [facility] [address] [id number] [place] [address] Oct, [facility] [place] [facility] [address] [id number] [place] [address] Sep, [facility] [place] [facility] [address] [id number] [place] [address] Sep, [facility] [place] [facility] [address] [id number] [place] [address] Sep, [facility] [place] [facility] [address] [id number] [place] [address] Sep, [facility] [place] [facility] [address] [id number] [place] [address] Sep, [facility] [place] [facility] [address] [id number] [place] [address] Sep, [facility] [place] [facility] [address] [id number] [place] [address] Sep, [facility] [place] [facility] [address] [id number] [place] [address] Sep, [facility] [place] [facility] [address] [id number] [place] [address] Sep, [facility] [place] [facility] [address] [id number] [place] [address] Sep, [facility] [place] [facility] [address] [id number] [place] [address] Aug, [facility] [place] [facility] [address] [id number] [place] [address] Aug, [facility] [place] [facility] [address] [id number] [place] [address] Aug, [facility] [place] [facility] [address] [id number] [place] [address] Aug, [facility] [place] [facility] [address] [id number] [place] [address] Aug, [facility] [place] [facility] [address] [id number] [place] [address] Aug, [facility] [place] [facility] [address] [id number] [place] [address] Aug, [facility] [place] [facility] [address] [id number] [place] [address] Aug, [facility] [place] [facility] [address] [id number] [place] [address] Aug, [facility] [place] [facility] [address] [id number] [place] [address] Aug, [facility] [place] [facility] [address] [id number] [place] [address] July, [facility] [place] [facility] [address] [id number] [place] [address] July, [facility] [place] [facility] [address] [id number] [place] [address] July, [facility] [place] [facility] [address] [id number] [place] [address] July, [facility] [place] [facility] [address] [id number] [place] [address] July, [facility] [place] [facility] [address] [id number] [place] [address] July, [facility] [place] [facility] [address] [id number] [place] [address] July, [facility] [place] [facility] [address] [id number] [place] [address] July, [facility] [place] [facility] [address] [id number] [place] [address] Jun, [facility] [place] [facility] [address] [id number] [place] [address] Jun, [facility] [place] [facility] [address] [id number] [place] [address] Jun, [facility] [place] [facility] [address] [id number] [place] [address] Jun, [facility] [place] [facility] [address] [id number] [place] [address] May, [facility] [place] [facility] [address] [id number] [place] [address] May, [facility] [place] [facility] [address] [id number] [place] [address] May, [facility] [place] [facility] [address] [id number] [place] [address] May, [facility] [place] [facility] [address] [id number] [place] [address] May, [facility] [place] [facility] [address] [id number] [place] [address] May, [facility] [place] [facility] [address] [id number] [place] [address] Apr, [facility] [place] [facility] [address] [id number] [place] [address] Apr, [facility] [place] [facility] [address] [id number] [place] [address] Apr, [facility] [place] [facility] [address] [id number] [place] [address] Apr, [facility] [place] [facility] [address] [id number] [place] [address] Apr, [facility] [place] [facility] [address] [id number] [place] [address] Apr, [facility] [place] [facility] [address] [id number] [place] [address] Apr, [facility] [place] [facility] [address] [id number] [place] [address] Apr, [facility] [place] [facility] [address] [id number] [place] [address] Apr, [facility] [place] [facility] [address] [id number] [place] [address] Apr, [facility] [place] [facility] [address] [id number] [place] [address] Mar, [facility] [place] [facility] [address] [id number] [place] [address] Mar, [facility] [place] [facility] [address] [id number] [place] [address] Mar, [facility] [place] [facility] [address] [id number] [place] [address] Mar, [facility] [place] [facility] [address] [id number] [place] [address] Mar, [facility] [place] [facility] [address] [id number] [place] [address] Mar, [facility] [place] [facility] [address] [id number] [place] [address] Mar, [facility] [place] [facility] [address] [id number] [place] [address] Mar, [facility] [place] [facility] [address] [id number] [place] [address] Feb, [facility] [place] [facility] [address] [id number] [place] [address] Feb, [facility] [place] [facility] [address] [id number] [place] [address] Feb, [facility] [place] [facility] [address] [id number] [place] [address] Feb, [facility] [place] [facility] [address] [id number] [place] [address] Feb, [facility] [place] [facility] [address] [id number] [place] [address] Feb, [facility] [place] [facility] [address] [id number] [place] [address] Feb, [facility] [place] [facility] [address] [id number] [address] Feb, [facility] [place] [facility] [address] [id number] [address] Feb, [facility] [place] [facility] [address] [id number] [place] [address] Feb, [facility] [place] [facility] [address] [id number] [place] [address] Jan, [facility] [place] [facility] [address] [id number] [place] [address] Jan, [facility] [place] [facility] [address] [id number] [place] [address] 20 Jan, 2013 [facility] [address] [id number] [place] [address] 20 Jan, 2013 [facility] [place] [facility] [address] [id number] [place] [address] 18 Jan, 2013 [facility] [place] [facility] [address] [id number] [place] [address] 15 Jan, 2013 [facility] [place] [facility] [address] [id number] [place] [address] 15 Jan, 2013 [facility] [place] [facility] [address] [id number] [place] [address] 14 Jan, 2013 [facility] [place] [facility] [address] [id number] [place] [address] 14 Jan, 2013 [facility] [place] [facility] [address] [id number] [place] [address] 06 Jan, 2013 [facility] [place] [facility] [address] [id number] [place] [address] 06 Jan, 2013 [facility] [place] [facility] [address] [id number] [place] [address] 05 Jan, 2013 [facility] [place] [facility] [address] [facility] [id number] [place] [address] 05 Jan, 2013 [facility] [place] [facility] [address] [id number] [place] [address] Dec, [facility] [place] [facility] [address] [id number] [address] Dec, [facility] [place] [facility] [address] [id number] [place] [address] Dec, [facility] [place] [facility] [address] [id number] [place] [address] Dec, [facility] [place] [facility] [address] [id number] [address] 27 Nov, 2012 [facility] [place] [facility] [address] [id number] [place] [address] Nov, [facility] [place] [facility] [address] [id number] [place] [address] Nov, [facility] [place] [facility] [address] [id number] [place] [address] Oct, [facility] [place] [facility] [address] [id number] [place] [address] Oct, [facility] [place] [facility] [address] [id number] [place] [address] Oct, [facility] [place] [facility] [address] [id number] [place] [address] Oct, [facility] [place] [facility] [address] [id number] [place] [address] Oct, [facility] [place] [facility] [address] [id number] [place] [address] Oct, [facility] [place] [facility] [address] [id number] [place] [address] Sep, [facility] [place] [facility] [address] [id number] [place] [address] Sep, [facility] [place] [facility] [address] [id number] [place] [address] Sep, [facility] [place] [facility] [address] [id number] [place] [address] Sep, [facility] [place] [facility] [address] [id number] [place] [address] Sep, [facility] [place] [facility] [address] [id number] [place] [address] Sep, [facility] [place] [facility] [address] [id number] [place] [address] Sep, [facility] [place] [facility] [address] [id number] [place] [address] Sep, [facility] [address] [id number] [place] [address] Sep, [facility] [place] [facility] [address] [id number] [place] [address] Aug, [facility] [place] [facility] [address] [id number] [place] [address] Aug, [facility] [place] [facility] [address] [id number] [place] [address] Aug, [facility] [place] [facility] [address] [id number] [place] [address] Aug, [facility] [place] [facility] [address] [id number] [place] [address] Aug, [facility] [place] [facility] [address] [id number] [place] [address] Aug, [facility] [place] [facility] [address] [id number] [place] [address] Aug, [facility] [place] [facility] [address] [id number] [place] [address] July, [facility] [place] [facility] [address] [id number] [place] [address] July, [facility] [place] [facility] [address] [id number] [place] [address] July, [facility] [place] [facility] [address] [id number] [place] [address] Jun, [facility] [place] [facility] [address] [id number] [place] [address] Jun, [facility] [facility] [address] [id number] [place] [address] Jun, [facility] [place] [facility] [address] [id number] [place] [address] Jun, [facility] [place] [facility] [address] [id number] [place] [address] 29 May, 2012 [facility] [address] [id number] [place] [address] 18 May, 2012 [facility] [address] [id number] [place] [address] 18 May, 2012 [facility] [address] [id number] [place] [address] 15 May, 2012 [facility] [address] [id number] [place] [address] 14 May, 2012 [facility] [address] [id number] [place] [address] 07 May, 2012 [facility] [address] [id number] [place] [address] 06 May, 2012 [facility] [address] [id number] [place] [address] 04 May, 2012 [facility] [address] [id number] [place] [address] 18 Apr, 2012 [facility] [address] [id number] [place] [address] 17 Feb, 2012 [facility] [address] [id number] [place] [address] 17 Feb, 2012 [facility] [address] [id number] [place] [address] 17 Feb, 2012 [facility] [address] [id number] [place] [address] 17 Feb, 2012 [facility] [address] [id number] [place] [address] 13 Feb, 2012 [facility] [address] [id number] [place] [address] 13 Feb, 2012 [facility] [address] [id number] [place] [address] Feb, [facility] [place] [facility] [address] [id number] [place] [address] Feb, [facility] [place] [facility] [address] [id number] [place] [address] Feb, [facility] [place] [facility] [address] [id number] [place] [address] Feb, [facility] [place] [facility] [address] [id number] [place] [address] Jan, [facility] [place] [facility] [address] [id number] [place] [address] Jan, [facility] [place] [facility] [address] [id number] [place] [address] Jan, [facility] [place] [facility] [address] [id number] [place] [address] Jan, [facility] [place] [facility] [address] [id number] [address] Jan, [facility] [place] [facility] [address] [id number] [place] [address] Jan, [facility] [place] [facility] [address] [facility] [id number] [address] Jan, [facility] [place] [facility] [address] [id number] [address] Jan, [facility] [place] [facility] [address] [id number] [place] [address] Dec, [facility] [facility] [address] [id number] [place] [address] Dec, [facility] [facility] [address] [id number] [place] [address] Dec, [facility] [facility] [address] [facility] [id number] [place] [address] Dec, [facility] [address] [id number] [address] Dec, [facility] [place] [facility] [address] [id number] [place] [address] Dec, [facility] [place] [facility] [address] [id number] [place] [address] Dec, [facility] [place] [facility] [address] [id number] [place] [address] Nov, [facility] [place] [facility] [address] [id number] [place] [address] Nov, [facility] [place] [facility] [address] [id number] [place] [address] Nov, [facility] [place] [facility] [address] [id number] [place] [address] Oct, [facility] [place] [facility] [address] [id number] [place] [address] Oct, [facility] [place] [facility] [address] [id number] [place] [address] Oct, [facility] [place] [facility] [address] [id number] [place] [address] Oct, [facility] [place] [facility] [address] [id number] [place] [address] Sep, [facility] [place] [facility] [address] [id number] [place] [address] Sep, [facility] [place] [facility] [address] [id number] [place] [address] Sep, [facility] [place] [facility] [address] [id number] [place] [address] Aug, [facility] [place] [facility] [address] [id number] [place] [address] Aug, [facility] [place] [facility] [address] [facility] [id number] [place] [address] July, [facility] [place] [facility] [address] [id number] [place] [address] July, [facility] [place] [facility] [address] [id number] [place] [address] July, [facility] [place] [facility] [address] [id number] [place] [address] Jun, [facility] [place] [facility] [address] [id number] [place] [address] Jun, [facility] [place] [facility] [address] [id number] [place] [address] May, [facility] [place] [facility] [address] [id number] [place] [address] Apr, [facility] [place] [facility] [address] [id number] [place] [address] Apr, [facility] [place] [facility] [address] [id number] [place] [address] Apr, [facility] [place] [facility] [address] [id number] [place] [address] Mar, [facility] [place] [facility] [address] [id number] [place] [address] Mar, [facility] [place] [facility] [address] [id number] [place] [address] Mar, [facility] [place] [facility] [address] [id number] [place] [address] Mar, [facility] [place] [facility] [address] [id number] [place] [address] Feb, [facility] [place] [facility] [address] [id number] [place] [address] Feb, [facility] [place] [facility] [address] [id number] [place] [address] Feb, [facility] [place] [facility] [address] [id number] [place] [address] 05 Feb, 2011 [facility] [place] [facility] [address] [id number] [place] [address] 30 Jan, 2011 [facility] [place] [facility] [address] [id number] [place] [address] 17 Jan, 2011 [facility] [place] [facility] [address] [id number] [place] [address] 16 Jan, 2011 [facility] [place] [facility] [address] [id number] [place] [address] 16 Jan, 2011 [facility] [place] [facility] [address] [id number] [place] [address] Jan, [facility] [facility] [address] [id number] [place] [address] Dec, [facility] [place] [facility] [address] [id number] [place] [address] Sep, [facility] [place] [facility] [address] [id number] [place] [address] 31 Feb, 2010 [facility] [place] [facility] [address] [id number] [place] [address] 30 Feb, 2010 [facility] [place] [facility] [address] [id number] [place] [address] Feb, [facility] [place] [facility] [address] [id number] [address] 29 Dec, 2009 [facility] [place] [facility] [address] [id number] [place] [address] Dec, [facility] [place] [facility] [address] [id number] [place] [address] Oct, [facility] [place] [facility] [address] [id number] [place] [address] 15 Aug, 2009 [facility] [place] [facility] [address] [id number] [place] [address] 15 Feb, 2009 [facility] [place] [facility] [address] [id number] [address] Feb, [facility] [id number] [address] Jan, [facility] [id number] [address] Jan, [facility] [id number] [address] Dec, [facility] [id number] [address] Dec, [facility] [id number] [address] Nov, IMMUNIZATIONS No Known Immunizations SOCIAL HISTORY Never Assessed REASON FOR VISIT EMR-[facility] PLAN OF CARE VITAL SIGNS MEDICATIONS Unknown [...]
--- OUTSIDE RECORDS SUMMARY | 2018-09-29 17:36 | XMS REPORT ---
Author Author Migration, Doctor Organization [facility] Address Unknown Phone Unavailable Care Team Providers Care Revenue Investigator Name Role Phone Migration, Doctor Unavailable Unavailable PROBLEMS Type Condition ICD9-CM Code LQY00-PL Code Onset Dates Condition Status SNOMED Code Problem Paranoid schizophrenia, chronic condition 295.32 Active 34596230 Problem Intermittent explosive disorder 312.34 Active 89746538 Problem Hyperlipemia E78.5 Active 56306486 Problem Mildly mentally retarded F70 Active 55077051 Problem Stress incontinence, male N39.3 Active 958149815 Problem Paranoid schizophrenia, chronic condition F20.0 Active 58938436 Problem Mild intellectual disabilities F70 Active 80188909 Problem Enuresis R32 Active 23588255 Problem High risk medication use Z79.899 Active 894506810 Problem 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 Active 21620796 Problem Seizures R56.9 Active 72544596 Problem Unsteady gait R26.81 Active 67096952 Problem Severe episode of recurrent major depressive disorder, with psychotic features F33.3 Active 26302253 Problem Constipation, unspecified constipation type K59.00 Active 75840260 Problem Dysphagia, unspecified type R13.10 Active [id number] ALLERGIES No Information ENCOUNTERS Encounter Location Date Diagnosis [facility] [place] [address], [place] [address] Sep, [facility] [place] [id number] [place] [address] Jun, Paranoid schizophrenia, chronic condition F20.0 ; 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 ; Mild intellectual disabilities F70 and High risk medication use Z79.899 [facility] [place] [id number] [place] [address] Jun, Paranoid schizophrenia, chronic condition F20.0 ; 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 and Mild intellectual disabilities F70 [facility] [id number] [id number] May, Dental examination Z01.20 [facility] [place] [address] [place] [address] Mar, Paranoid schizophrenia, chronic condition F20.0 and Mild intellectual disabilities F70 [facility] [place] [address], [place] [address] Mar, Paranoid schizophrenia, chronic condition F20.0 ; High risk medication use Z79.899 ; Mild intellectual disabilities F70 and Anxiety F41.9 [facility] [place] [address], [place] [address] Feb, [facility] [place] [id number] [place] [address] Nov, Paranoid schizophrenia, chronic condition F20.0 ; Mild intellectual disabilities F70 ; Enuresis R32 ; Dysphagia, unspecified type R13.10 and High risk medication use Z79.899 [facility] [place] [address], [place] [address] Oct, [facility] [place] [id number] [place] [address] Oct, [facility] [place] [address], [place] [address] Oct, Paranoid schizophrenia, chronic condition F20.0 ; Enuresis R32 ; Mild intellectual disabilities F70 ; High risk medication use Z79.899 and Dysphagia, unspecified type R13.10 [facility] [place] [address], [place] [address] July, Paranoid schizophrenia, chronic condition F20.0 and Mild intellectual disabilities F70 [facility] [place] [id number], [place] [address] Jun, Paranoid schizophrenia, chronic condition F20.0 [facility] [place] [address], [place] [address] May, [facility] [place] [id number] [place] [address] 13 Apr, 2017 Paranoid schizophrenia, chronic condition F20.0 ; Mild intellectual disabilities F70 and High risk medication use Z79.899 [facility] [id number] [place] [address] 08 Apr, 2017 [facility] [id number] [place] [address] Mar, [facility] [id number] [place] [address] Mar, [facility] [id number] [place] [address] Mar, Contusion of nose, initial encounter S00.33XA [facility] [id number] [place] [address] Mar, Paranoid schizophrenia, chronic condition F20.0 ; Severe episode of recurrent major depressive disorder, with psychotic features F33.3 and Mild intellectual disabilities F70 [facility] [id number] [place] [address] Mar, Constipation, unspecified constipation type K59.00 and Abrasion of right ear, initial encounter S00.411A [facility] [id number] [place] [address] Mar, [facility] [id number] [place] [id number] Feb, Encounter for dental examination and cleaning without abnormal findings Z01.20 [facility] [id number] [place] [address] Feb, [facility] [id number] [place] [address] Feb, Paranoid schizophrenia, chronic condition F20.0 ; Mild intellectual disabilities F70 and High risk medication use Z79.899 [facility] [address] [place] [address] Jan, [facility] [id number] [place] [address] Jan, Unsteady gait R26.81 [facility] [place] [id number], [place] [address] Dec, Encounter for immunization Z23 [facility] [place] [id number] [place] [address] Nov, [facility] [place] [id number] [place] [address] Oct, Paranoid schizophrenia, chronic condition F20.0 ; Mild intellectual disabilities F70 and High risk medication use Z79.899 [facility] [place] [id number] [place] [address] Sep, [facility] [place] [id number] [place] [address] July, [facility] [place] [id number] [place] [address] Jun, High risk medication use Z79.899 [facility] [place] [id number] [place] [address] Apr, [facility] [place] [address], [place] [address] Apr, Paranoid schizophrenia, chronic condition F20.0 ; Mild intellectual disabilities F70 and High risk medication use Z79.899 [facility] [place] [id number], [place] [address] Apr, [facility] [place] [id number] [place] [address] Feb, [facility] [place] [id number] [place] [address] Jan, [facility] [place] [id number] [place] [address] Jan, [facility] [place] [address] [facility] [id number] [address] Jan, Paranoid schizophrenia, chronic condition F20.0 [facility] [place] [id number], [place] [address] Dec, Paranoid schizophrenia, chronic condition F20.0 ; Mild intellectual disabilities F70 and High risk medication use Z79.899 [facility] [place] [address], [place] [address] Dec, [facility] [place] [id number], [place] [address] Nov, Paranoid schizophrenia, chronic condition F20.0 ; Mild intellectual disabilities F70 and High risk medication use Z79.899 [facility] [place] [address], [place] [address] Oct, [facility] [place] [id number], [place] [address] Oct, [facility] [place] [id number], [place] [address] Oct, [facility] [place] [address], [place] [address] Oct, [facility] [place] [address], [place] [address] Aug, [facility] [place] [id number], [place] [address] Jun, Paranoid schizophrenia, chronic condition F20.0 ; High risk medication use Z79.899 and Mild intellectual disabilities F70 [facility] [place] [id number], [place] [address] Apr, High risk medication use Z79.899 ; Paranoid schizophrenia, chronic condition F20.0 and Mild intellectual disabilities F70 [facility] [address] [id number] Apr, Encounter for dental examination Z01.20 [facility] [place] [address], [place] [address] Apr, [facility] [place] [id number] [place] [address] Mar, Paranoid schizophrenia, chronic condition F20.0 ; Mildly mentally retarded F70 and High risk medication use Z79.899 [facility] [place] [id number] [place] [address] Feb, Paranoid schizophrenia F20.0 [facility] [place] [id number] [place] [address] Dec, [facility] [place] [id number] [place] [address] Dec, Paranoid schizophrenia, chronic condition F20.0 and Mild mental retardation F70 [facility] [place] [id number] [place] [address] Dec, [facility] [place] [id number] [place] [address] Dec, [facility] [place] [id number] [place] [address] Dec, [facility] [place] [address], [place] [address] Dec, High risk medication use Z79.899 and Hyperlipemia E78.5 [facility] [place] [address], [place] [address] Nov, [facility] [place] [id number] [place] [address] Sep, [facility] [place] [id number] [place] [address] Sep, Paranoid schizophrenia, chronic condition 295.32 and Mild mental retardation 317 [facility] [place] [id number] [place] [address] 14 Jun, 2014 [facility] [place] [facility] [address] [id number] [place] [address] 13 Jun, 2014 [facility] [place] [facility] [address] [id number] [place] [address] Apr, 2014 [facility] [place] [facility] [address] [id number] [place] [address] Apr, 2014 [facility] [place] [facility] [address] [id number] [place] [address] Apr, 2014 [facility] [place] [facility] [address] [id number] [place] [address] Apr, 2014 [facility] [place] [facility] [address] [id number] [place] [address] Apr, [facility] [place] [facility] [address] [id number] [place] [address] Apr, [facility] [place] [facility] [address] [id number] [place] [address] Mar, [facility] [place] [facility] [address] [id number] [place] [address] Mar, [facility] [place] [facility] [address] [facility] [id number] [place] [address] Mar, [facility] [place] [facility] [address] [id number] [place] [address] Mar, [facility] [place] [facility] [address] [id number] [place] [address] Mar, [facility] [place] [facility] [address] [id number] [place] [address] Mar, [facility] [place] [facility] [address] [facility] [id number] [place] [address] Feb, [facility] [place] [facility] [address] [id number] [place] [address] Feb, [facility] [place] [facility] [address] [id number] [place] [address] Jan, [facility] [place] [facility] [address] [id number] [place] [address] Jan, [facility] [place] [facility] [address] [id number] [place] [address] Jan, [facility] [place] [facility] [address] [id number] [place] [address] Jan, [facility] [place] [facility] [address] [id number] [place] [address] Jan, [facility] [place] [facility] [address] [id number] [place] [address] Jan, [facility] [place] [facility] [address] [id number] [place] [address] Jan, [facility] [place] [facility] [address] [id number] [place] [address] Dec, [facility] [place] [facility] [address] [id number] [place] [address] Dec, [facility] [place] [facility] [address] [id number] [place] [address] Dec, [facility] [place] [facility] [address] [id number] [place] [address] Dec, [facility] [place] [facility] [address] [id number], [place] [address] Dec, [facility] [place] [facility] [address] [id number] [place] [address] Dec, [facility] [place] [facility] [address] [id number] [place] [address] Dec, [facility] [place] [facility] [address] [id number], [place] [address] Dec, [facility] [place] [facility] [address] [id number], [place] [address] Nov, [facility] [place] [facility] [address] [id number] [place] [address] Nov, [facility] [place] [facility] [address] [id number] [place] [address] Nov, [facility] [place] [facility] [address] [id number] [place] [address] Nov, [facility] [place] [facility] [address] [id number] [place] [address] Oct, [facility] [place] [facility] [address] [id number] [place] [address] Oct, [facility] [place] [facility] [address] [id number] [place] [address] Oct, [facility] [place] [facility] [address] [id number] [place] [address] Oct, [facility] [place] [facility] [address] [id number] [place] [address] Oct, [facility] [place] [facility] [address] [id number] [place] [address] Oct, [facility] [place] [facility] [address] [id number] [place] [address] Sep, [facility] [place] [facility] [address] [id number] [place] [address] Sep, [facility] [place] [facility] [address] [id number] [place] [address] Sep, [facility] [place] [facility] [address] [id number] [place] [address] Sep, [facility] [place] [facility] [address] [id number] [place] [address] Sep, [facility] [place] [facility] [address] [id number] [place] [address] Sep, [facility] [place] [facility] [address] [id number] [place] [address] Sep, [facility] [place] [facility] [address] [id number] [place] [address] Sep, [facility] [place] [facility] [address] [id number] [place] [address] Sep, [facility] [place] [facility] [address] [id number] [place] [address] Sep, [facility] [place] [facility] [address] [id number] [place] [address] Aug, [facility] [place] [facility] [address] [id number] [place] [address] Aug, [facility] [place] [facility] [address] [id number] [place] [address] Aug, [facility] [place] [facility] [address] [id number] [place] [address] Aug, [facility] [place] [facility] [address] [id number] [place] [address] Aug, [facility] [place] [facility] [address] [id number] [place] [address] Aug, [facility] [place] [facility] [address] [id number] [place] [address] Aug, [facility] [place] [facility] [address] [id number] [place] [address] Aug, [facility] [place] [facility] [address] [id number] [place] [address] Aug, [facility] [place] [facility] [address] [id number] [place] [address] Aug, [facility] [place] [facility] [address] [id number] [place] [address] July, [facility] [place] [facility] [address] [id number] [place] [address] July, [facility] [place] [facility] [address] [id number] [place] [address] July, [facility] [place] [facility] [address] [id number] [place] [address] July, [facility] [place] [facility] [address] [id number] [place] [address] July, [facility] [place] [facility] [address] [id number] [place] [address] July, [facility] [place] [facility] [address] [id number] [place] [address] July, [facility] [place] [facility] [address] [id number] [place] [address] July, [facility] [place] [facility] [address] [id number] [place] [address] Jun, [facility] [place] [facility] [address] [id number] [place] [address] Jun, [facility] [place] [facility] [address] [id number] [place] [address] Jun, [facility] [place] [facility] [address] [id number] [place] [address] Jun, [facility] [place] [facility] [address] [id number] [place] [address] May, [facility] [place] [facility] [address] [id number] [place] [address] May, [facility] [place] [facility] [address] [id number] [place] [address] May, [facility] [place] [facility] [address] [id number] [place] [address] May, [facility] [place] [facility] [address] [id number] [place] [address] May, [facility] [place] [facility] [address] [id number] [place] [address] May, [facility] [place] [facility] [address] [id number] [place] [address] Apr, [facility] [place] [facility] [address] [id number] [place] [address] Apr, [facility] [place] [facility] [address] [id number] [place] [address] Apr, [facility] [place] [facility] [address] [id number] [place] [address] Apr, [facility] [place] [facility] [address] [id number] [place] [address] Apr, [facility] [place] [facility] [address] [id number] [place] [address] Apr, [facility] [place] [facility] [address] [id number] [place] [address] Apr, [facility] [place] [facility] [address] [id number] [place] [address] Apr, [facility] [place] [facility] [address] [id number] [place] [address] Apr, [facility] [place] [facility] [address] [id number] [place] [address] Apr, [facility] [place] [facility] [address] [id number] [place] [address] Mar, [facility] [place] [facility] [address] [id number] [place] [address] Mar, [facility] [place] [facility] [address] [id number] [place] [address] Mar, [facility] [place] [facility] [address] [id number] [place] [address] Mar, [facility] [place] [facility] [address] [id number] [place] [address] Mar, [facility] [place] [facility] [address] [id number] [place] [address] Mar, [facility] [place] [facility] [address] [id number] [place] [address] Mar, [facility] [place] [facility] [address] [id number] [place] [address] Mar, [facility] [place] [facility] [address] [id number] [place] [address] Feb, [facility] [place] [facility] [address] [id number] [place] [address] Feb, [facility] [place] [facility] [address] [id number] [place] [address] Feb, [facility] [place] [facility] [address] [id number] [place] [address] Feb, [facility] [place] [facility] [address] [id number] [place] [address] Feb, [facility] [place] [facility] [address] [id number] [place] [address] Feb, [facility] [place] [facility] [address] [id number] [place] [address] Feb, [facility] [place] [facility] [address] [id number], [place] [address] Feb, [facility] [place] [facility] [address] [id number], [place] [address] Feb, [facility] [place] [facility] [address] [id number] [place] [address] Feb, [facility] [place] [facility] [address] [id number] [place] [address] Jan, [facility] [place] [facility] [address] [id number] [place] [address] Jan, [facility] [place] [facility] [address] [id number] [place] [address] 20 Jan, 2013 [facility] [address] [id number] [place] [address] 20 Jan, 2013 [facility] [place] [facility] [address] [id number] [place] [address] 18 Jan, 2013 [facility] [place] [facility] [address] [id number] [place] [address] 15 Jan, 2013 [facility] [place] [facility] [address] [id number] [place] [address] 15 Jan, 2013 [facility] [place] [facility] [address] [id number] [place] [address] 14 Jan, 2013 [facility] [place] [facility] [address] [id number] [place] [address] 14 Jan, 2013 [facility] [place] [facility] [address] [id number] [place] [address] 06 Jan, 2013 [facility] [place] [facility] [address] [id number] [place] [address] 06 Jan, 2013 [facility] [place] [facility] [address] [id number] [place] [address] 05 Jan, 2013 [facility] [place] [facility] [address] [facility] [id number] [place] [address] 05 Jan, 2013 [facility] [place] [facility] [address] [id number] [place] [address] Dec, [facility] [place] [facility] [address] [id number], [place] [address] Dec, [facility] [place] [facility] [address] [id number] [place] [address] Dec, [facility] [place] [address] [id number] [place] [address] Dec, [facility] [place] [facility] [address] [id number], [place] [address] 27 Nov, 2012 [facility] [place] [facility] [address] [id number] [place] [address] Nov, [facility] [place] [facility] [address] [id number] [place] [address] Nov, [facility] [place] [facility] [address] [id number] [place] [address] Oct, [facility] [place] [facility] [address] [id number] [place] [address] Oct, [facility] [place] [facility] [address] [id number] [place] [address] Oct, [facility] [place] [facility] [address] [id number] [place] [address] Oct, [facility] [place] [facility] [address] [id number] [place] [address] Oct, [facility] [place] [facility] [address] [id number] [place] [address] Oct, [facility] [place] [facility] [address] [id number] [place] [address] Sep, [facility] [place] [facility] [address] [id number] [place] [address] Sep, [facility] [place] [facility] [address] [id number] [place] [address] Sep, [facility] [place] [facility] [address] [id number] [place] [address] Sep, [facility] [place] [facility] [address] [id number] [place] [address] Sep, [facility] [place] [facility] [address] [id number] [place] [address] Sep, [facility] [place] [facility] [address] [id number] [place] [address] Sep, [facility] [place] [facility] [address] [id number] [place] [address] Sep, [facility] [address] [id number] [place] [address] Sep, [facility] [place] [facility] [address] [id number] [place] [address] Aug, [facility] [place] [facility] [address] [id number] [place] [address] Aug, [facility] [place] [facility] [address] [id number] [place] [address] Aug, [facility] [place] [facility] [address] [id number] [place] [address] Aug, [facility] [place] [facility] [address] [id number] [place] [address] Aug, [facility] [place] [facility] [address] [id number] [place] [address] Aug, [facility] [place] [facility] [address] [id number] [place] [address] Aug, [facility] [place] [facility] [address] [id number] [place] [address] July, [facility] [place] [facility] [address] [id number] [place] [address] July, [facility] [place] [facility] [address] [id number] [place] [address] July, [facility] [place] [facility] [address] [id number] [place] [address] Jun, [facility] [place] [facility] [address] [id number] [place] [address] Jun, [facility] [place] [facility] [address] [id number] [place] [address] Jun, [facility] [place] [facility] [address] [id number] [place] [address] Jun, [facility] [place] [facility] [address] [id number] [place] [address] 29 May, 2012 [facility] [address] [id number] [place] [address] 18 May, 2012 [facility] [address] [id number] [place] [address] 18 May, 2012 [facility] [address] [id number] [place] [address] 15 May, 2012 [facility] [address] [id number] [place] [address] 14 May, 2012 [facility] [address] [id number] [place] [address] 07 May, 2012 [facility] [address] [id number] [place] [address] 06 May, 2012 [facility] [address] [id number] [place] [address] 04 May, 2012 [facility] [address] [id number] [place] [address] 18 Apr, 2012 [facility] [address] [id number] [place] [address] 17 Feb, 2012 [facility] [address] [id number] [place] [address] 17 Feb, 2012 [facility] [address] [id number] [place] [address] 17 Feb, 2012 [facility] [address] [id number] [place] [address] 17 Feb, 2012 [facility] [address] [id number] [place] [address] 13 Feb, 2012 [facility] [address] [id number] [place] [address] 13 Feb, 2012 [facility] [address] [id number] [place] [address] Feb, [facility] [place] [facility] [address] [id number] [place] [address] Feb, [facility] [place] [facility] [address] [id number] [place] [address] Feb, [facility] [place] [facility] [address] [id number] [place] [address] Feb, [facility] [place] [facility] [address] [id number] [place] [address] Jan, [facility] [place] [facility] [address] [id number] [place] [address] Jan, [facility] [place] [facility] [address] [id number] [place] [address] Jan, [facility] [place] [facility] [address] [id number] [place] [address] Jan, [facility] [place] [facility] [address] [id number], [place] [address] Jan, [facility] [place] [facility] [address] [id number] [place] [address] Jan, [facility] [place] [facility] [address] [facility] [id number], [place] [address] Jan, [facility] [place] [facility] [address] [id number], [place] [address] Jan, [facility] [place] [facility] [address] [id number], [place] [address] Dec, [facility] [place] [facility] [address] [id number], [place] [address] Dec, [facility] [place] [facility] [address] [id number], [place] [address] Dec, [facility] [place] [facility] [address] [facility] [id number], [place] [address] Dec, [facility] [place] [facility] [address] [id number], [place] [address] Dec, [facility] [place] [facility] [address] [id number] [place] [address] Dec, [facility] [place] [facility] [address] [id number] [place] [address] Dec, [facility] [place] [facility] [address] [id number] [place] [address] Nov, [facility] [place] [facility] [address] [id number] [place] [address] Nov, [facility] [place] [facility] [address] [id number] [place] [address] Nov, [facility] [place] [facility] [address] [id number] [place] [address] Oct, [facility] [place] [facility] [address] [id number] [place] [address] Oct, [facility] [place] [facility] [address] [id number] [place] [address] Oct, [facility] [place] [facility] [address] [id number] [place] [address] Oct, [facility] [place] [facility] [address] [id number] [place] [address] Sep, [facility] [place] [facility] [address] [id number] [place] [address] Sep, [facility] [place] [facility] [address] [id number] [place] [address] Sep, [facility] [place] [facility] [address] [id number] [place] [address] Aug, [facility] [place] [facility] [address] [id number] [place] [address] Aug, [facility] [place] [facility] [address] [facility] [id number] [place] [address] July, [facility] [place] [facility] [address] [id number] [place] [address] July, [facility] [place] [facility] [address] [id number] [place] [address] July, [facility] [place] [facility] [address] [id number] [place] [address] Jun, [facility] [place] [facility] [address] [id number] [place] [address] Jun, [facility] [place] [facility] [address] [id number] [place] [address] May, [facility] [place] [facility] [address] [id number] [place] [address] Apr, [facility] [place] [facility] [address] [id number] [place] [address] Apr, [facility] [place] [facility] [address] [id number] [place] [address] Apr, [facility] [place] [facility] [address] [id number] [place] [address] Mar, [facility] [place] [facility] [address] [id number] [place] [address] Mar, [facility] [place] [facility] [address] [id number] [place] [address] Mar, [facility] [place] [facility] [address] [id number] [place] [address] Mar, [facility] [place] [facility] [address] [id number] [place] [address] Feb, [facility] [place] [facility] [address] [id number] [place] [address] Feb, [facility] [place] [facility] [address] [id number] [place] [address] Feb, [facility] [place] [facility] [address] [id number] [place] [address] 05 Feb, 2011 [facility] [place] [facility] [address] [id number] [place] [address] 30 Jan, 2011 [facility] [place] [facility] [address] [id number] [place] [address] 17 Jan, 2011 [facility] [place] [facility] [address] [id number] [place] [address] 16 Jan, 2011 [facility] [place] [facility] [address] [id number] [place] [address] 16 Jan, 2011 [facility] [place] [facility] [address] [id number] [place] [address] Jan, [facility] [place] [facility] [address] [id number] [place] [address] Dec, [facility] [place] [facility] [address] [id number] [place] [address] Sep, [facility] [place] [facility] [address] [id number] [place] [address] 31 Feb, 2010 [facility] [place] [facility] [address] [id number] [place] [address] 30 Feb, 2010 [facility] [place] [facility] [address] [id number] [place] [address] Feb, [facility] [place] [facility] [address] [id number], [place] [address] 29 Dec, 2009 [facility] [place] [facility] [address] [id number], [place] [address] Dec, [facility] [place] [facility] [address] [id number] [place] [address] Oct, [facility] [place] [facility] [address] [id number] [place] [address] 15 Aug, 2009 [facility] [place] [facility] [address] [id number] [place] [address] 15 Feb, 2009 [facility] [place] [facility] [address] [id number], [place] [address] Feb, [facility] [place] [id number], [place] [address] Jan, [facility] [place] [id number], [place] [address] Jan, [facility] [place] [id number], [place] [address] Dec, [facility] [place] [id number], [place] [address] Dec, [facility] [place] [id number], [place] [address] Nov, IMMUNIZATIONS No Known Immunizations SOCIAL HISTORY Never Assessed REASON FOR VISIT EMR-[facility] [place] PLAN OF CARE VITAL SIGNS [...]
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
--- OUTSIDE RECORDS SUMMARY | 2018-09-29 17:37 | XMS REPORT ---
Author Author Migration, Doctor Organization [facility] Address Unknown Phone Unavailable Care Team Providers Care Back Hoe Operator Name Role Phone Migration, Doctor Unavailable Unavailable PROBLEMS Type Condition ICD9-CM Code MIY27-WA Code Onset Dates Condition Status SNOMED Code Problem Paranoid schizophrenia, chronic condition 295.32 Active 66790821 Problem Intermittent explosive disorder 312.34 Active 70911882 Problem Hyperlipemia E78.5 Active 14124305 Problem Mildly mentally retarded F70 Active 20912091 Problem Stress incontinence, male N39.3 Active 076663811 Problem Paranoid schizophrenia, chronic condition F20.0 Active 03500684 Problem Mild intellectual disabilities F70 Active 94895348 Problem Enuresis R32 Active 90749259 Problem High risk medication use Z79.899 Active 254192430 Problem 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 Active 94908506 Problem Seizures R56.9 Active 57379765 Problem Unsteady gait R26.81 Active 88148605 Problem Severe episode of recurrent major depressive disorder, with psychotic features F33.3 Active 38383640 Problem Constipation, unspecified constipation type K59.00 Active 81363533 Problem Dysphagia, unspecified type R13.10 Active 92658513 ALLERGIES No Information ENCOUNTERS Encounter Location Date Diagnosis [facility] [address] [address] Sep, [facility] [id number] [place] [address] Jun, Paranoid schizophrenia, chronic condition F20.0 ; 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 ; Mild intellectual disabilities F70 and High risk medication use Z79.899 [facility] [address] [place] [address] Jun, Paranoid schizophrenia, chronic condition F20.0 ; 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 and Mild intellectual disabilities F70 [facility] [id number] [id number] May, Dental examination Z01.20 [facility] [address] [place] [address] Mar, Paranoid schizophrenia, chronic condition F20.0 and Mild intellectual disabilities F70 [facility] [address] [address] Mar, Paranoid schizophrenia, chronic condition F20.0 ; High risk medication use Z79.899 ; Mild intellectual disabilities F70 and Anxiety F41.9 [facility] [address] [address] Feb, [facility] [id number] [place] [address] Nov, Paranoid schizophrenia, chronic condition F20.0 ; Mild intellectual disabilities F70 ; Enuresis R32 ; Dysphagia, unspecified type R13.10 and High risk medication use Z79.899 [facility] [address] [address] Oct, [facility] [id number] [place] [address] Oct, [facility] [address] [address] Oct, Paranoid schizophrenia, chronic condition F20.0 ; Enuresis R32 ; Mild intellectual disabilities F70 ; High risk medication use Z79.899 and Dysphagia, unspecified type R13.10 [facility] [address] [address] July, Paranoid schizophrenia, chronic condition F20.0 and Mild intellectual disabilities F70 [facility] [id number] [address] Jun, Paranoid schizophrenia, chronic condition F20.0 [facility] [address] [address] May, [facility] [address] [place] [address] 13 Apr, 2017 Paranoid schizophrenia, chronic condition F20.0 ; Mild intellectual disabilities F70 and High risk medication use Z79.899 [facility] [id number] [place] [address] 08 Apr, 2017 [facility] [id number] [place] [address] Mar, [facility] [id number] [place] [address] Mar, [facility] [id number] [place] [address] Mar, Contusion of nose, initial encounter S00.33XA [facility] [id number] [place] [address] Mar, Paranoid schizophrenia, chronic condition F20.0 ; Severe episode of recurrent major depressive disorder, with psychotic features F33.3 and Mild intellectual disabilities F70 [facility] [id number] [place] [address] Mar, Constipation, unspecified constipation type K59.00 and Abrasion of right ear, initial encounter S00.411A [facility] [id number] [place] [address] Mar, [facility] [id number] [place] [id number] Feb, Encounter for dental examination and cleaning without abnormal findings Z01.20 [facility] [id number] [place] [address] Feb, [facility] [id number] [place] [address] Feb, Paranoid schizophrenia, chronic condition F20.0 ; Mild intellectual disabilities F70 and High risk medication use Z79.899 [place] [address] [place] [address] Jan, [facility] [id number] [place] [address] Jan, Unsteady gait R26.81 [facility] [address] [address] Dec, Encounter for immunization Z23 [facility] [id number] [place] [address] Nov, [facility] [id number] [place] [address] Oct, Paranoid schizophrenia, chronic condition F20.0 ; Mild intellectual disabilities F70 and High risk medication use Z79.899 [facility] [id number] [place] [address] Sep, [facility] [id number] [place] [address] July, [facility] [id number] [place] [address] Jun, High risk medication use Z79.899 [facility] [id number] [place] [address] Apr, [facility] [address] [address] Apr, Paranoid schizophrenia, chronic condition F20.0 ; Mild intellectual disabilities F70 and High risk medication use Z79.899 [facility] [address] [address] Apr, [facility] [id number] [place] [address] Feb, [facility] [id number] [place] [address] Jan, [facility] [id number] [place] [address] Jan, [facility] [address] [id number] [address] Jan, Paranoid schizophrenia, chronic condition F20.0 [facility] [id number] [address] Dec, Paranoid schizophrenia, chronic condition F20.0 ; Mild intellectual disabilities F70 and High risk medication use Z79.899 [facility] [address] [address] Dec, [facility] [id number] [address] Nov, Paranoid schizophrenia, chronic condition F20.0 ; Mild intellectual disabilities F70 and High risk medication use Z79.899 [facility] [address], [place] [address] Oct, [facility] [id number] [address] Oct, [facility] [id number], [place] [address] Oct, [facility] [address], [place] [address] Oct, [facility] [address] [address] Aug, [facility] [id number], [place] [address] Jun, Paranoid schizophrenia, chronic condition F20.0 ; High risk medication use Z79.899 and Mild intellectual disabilities F70 [facility] [id number], [place] [address] Apr, High risk medication use Z79.899 ; Paranoid schizophrenia, chronic condition F20.0 and Mild intellectual disabilities F70 [facility] [address] [address] Apr, Encounter for dental examination Z01.20 [facility] [address], [place] [address] Apr, [facility] [id number] [place] [address] Mar, Paranoid schizophrenia, chronic condition F20.0 ; Mildly mentally retarded F70 and High risk medication use Z79.899 [facility] [id number] [place] [address] Feb, Paranoid schizophrenia F20.0 [facility] [id number] [place] [address] Dec, [facility] [id number] [place] [address] Dec, Paranoid schizophrenia, chronic condition F20.0 and Mild mental retardation F70 [facility] [id number] [place] [address] Dec, [facility] [address] [place] [address] Dec, [facility] [id number] [place] [address] Dec, [facility] [address], [place] [address] Dec, High risk medication use Z79.899 and Hyperlipemia E78.5 [facility] [address], [place] [address] Nov, [facility] [id number] [place] [address] Sep, [facility] [address] [place] [address] Sep, Paranoid schizophrenia, chronic condition 295.32 and Mild mental retardation 317 [facility] [id number] [place] [address] 14 Jun, 2014 [facility] [place] [facility] [address] [id number] [place] [address] 13 Jun, 2014 [facility] [place] [facility] [address] [id number] [place] [address] Apr, 2014 [facility] [place] [facility] [address] [id number] [place] [address] Apr, 2014 [facility] [place] [facility] [address] [id number] [place] [address] Apr, 2014 [facility] [place] [facility] [address] [id number] [place] [address] Apr, 2014 [facility] [place] [facility] [address] [id number] [place] [address] Apr, [facility] [place] [facility] [address] [id number] [place] [address] Apr, [facility] [place] [facility] [address] [id number] [place] [address] Mar, [facility] [place] [facility] [address] [id number] [place] [address] Mar, [facility] [place] [facility] [address] [id number] [place] [address] Mar, [facility] [place] [facility] [address] [id number] [place] [address] Mar, [facility] [place] [facility] [address] [id number] [place] [address] Mar, [facility] [place] [facility] [address] [id number] [place] [address] Mar, [facility] [place] [facility] [address] [id number] [place] [address] Feb, [facility] [place] [facility] [address] [id number] [place] [address] Feb, [facility] [place] [facility] [address] [id number] [place] [address] Jan, [facility] [place] [facility] [address] [id number] [place] [address] Jan, [facility] [place] [facility] [address] [id number] [place] [address] Jan, [facility] [place] [facility] [address] [id number] [place] [address] Jan, [facility] [place] [facility] [address] [id number] [place] [address] Jan, [facility] [place] [facility] [address] [id number] [place] [address] Jan, [facility] [place] [facility] [address] [id number] [place] [address] Jan, [facility] [place] [facility] [address] [id number] [place] [address] Dec, [facility] [place] [facility] [address] [id number] [place] [address] Dec, [facility] [place] [facility] [address] [id number] [place] [address] Dec, [facility] [place] [facility] [address] [id number] [place] [address] Dec, [facility] [place] [facility] [address] [id number], [place] [address] Dec, [facility] [place] [facility] [address] [id number] [place] [address] Dec, [facility] [place] [facility] [address] [id number] [place] [address] Dec, [facility] [place] [facility] [address] [id number], [place] [address] Dec, [facility] [place] [facility] [address] [id number], [place] [address] Nov, [facility] [place] [facility] [address] [id number] [place] [address] Nov, [facility] [place] [facility] [address] [id number] [place] [address] Nov, [facility] [place] [facility] [address] [id number] [place] [address] Nov, [facility] [place] [facility] [address] [id number] [place] [address] Oct, [facility] [place] [facility] [address] [id number] [place] [address] Oct, [facility] [place] [facility] [address] [id number] [place] [address] Oct, [facility] [place] [facility] [address] [id number] [place] [address] Oct, [facility] [place] [facility] [address] [id number] [place] [address] Oct, [facility] [place] [facility] [address] [id number] [place] [address] Oct, [facility] [place] [facility] [address] [id number] [place] [address] Sep, [facility] [place] [facility] [address] [id number] [place] [address] Sep, [facility] [place] [facility] [address] [id number] [place] [address] Sep, [facility] [place] [facility] [address] [id number] [place] [address] Sep, [facility] [place] [facility] [address] [id number] [place] [address] Sep, [facility] [place] [facility] [address] [id number] [place] [address] Sep, [facility] [place] [facility] [address] [id number] [place] [address] Sep, [facility] [place] [facility] [address] [id number] [place] [address] Sep, [facility] [place] [facility] [address] [id number] [place] [address] Sep, [facility] [place] [facility] [address] [id number] [place] [address] Sep, [facility] [place] [facility] [address] [id number] [place] [address] Aug, [facility] [place] [facility] [address] [id number] [place] [address] Aug, [facility] [place] [facility] [address] [id number] [place] [address] Aug, [facility] [place] [facility] [address] [id number] [place] [address] Aug, [facility] [place] [facility] [address] [id number] [place] [address] Aug, [facility] [place] [facility] [address] [id number] [place] [address] Aug, [facility] [place] [facility] [address] [id number] [place] [address] Aug, [facility] [place] [facility] [address] [id number] [place] [address] Aug, [facility] [place] [facility] [address] [id number] [place] [address] Aug, [facility] [place] [facility] [address] [id number] [place] [address] Aug, [facility] [place] [facility] [address] [id number] [place] [address] July, [facility] [place] [facility] [address] [id number] [place] [address] July, [facility] [place] [facility] [address] [id number] [place] [address] July, [facility] [place] [facility] [address] [id number] [place] [address] July, [facility] [place] [facility] [address] [id number] [place] [address] July, [facility] [place] [facility] [address] [id number] [place] [address] July, [facility] [place] [facility] [address] [id number] [place] [address] July, [facility] [place] [facility] [address] [id number] [place] [address] July, [facility] [place] [facility] [address] [id number] [place] [address] Jun, [facility] [place] [facility] [address] [id number] [place] [address] Jun, [facility] [place] [facility] [address] [id number] [place] [address] Jun, [facility] [place] [facility] [address] [id number] [place] [address] Jun, [facility] [place] [facility] [address] [id number] [place] [address] May, [facility] [place] [facility] [address] [id number] [place] [address] May, [facility] [place] [facility] [address] [id number] [place] [address] May, [facility] [place] [facility] [address] [id number] [place] [address] May, [facility] [place] [facility] [address] [id number] [place] [address] May, [facility] [place] [facility] [address] [id number] [place] [address] May, [facility] [place] [facility] [address] [id number] [place] [address] Apr, [facility] [place] [facility] [address] [id number] [place] [address] Apr, [facility] [place] [facility] [address] [id number] [place] [address] Apr, [facility] [place] [facility] [address] [id number] [place] [address] Apr, [facility] [place] [facility] [address] [id number] [place] [address] Apr, [facility] [place] [facility] [address] [id number] [place] [address] Apr, [facility] [place] [facility] [address] [id number] [place] [address] Apr, [facility] [place] [facility] [address] [id number] [place] [address] Apr, [facility] [place] [facility] [address] [id number] [place] [address] Apr, [facility] [place] [facility] [address] [id number] [place] [address] Apr, [facility] [place] [facility] [address] [id number] [place] [address] Mar, [facility] [place] [facility] [address] [id number] [place] [address] Mar, [facility] [place] [facility] [address] [id number] [place] [address] Mar, [facility] [place] [facility] [address] [id number] [place] [address] Mar, [facility] [place] [facility] [address] [id number] [place] [address] Mar, [facility] [place] [facility] [address] [id number] [place] [address] Mar, [facility] [place] [facility] [address] [id number] [place] [address] Mar, [facility] [place] [facility] [address] [id number] [place] [address] Mar, [facility] [place] [facility] [address] [id number] [place] [address] Feb, [facility] [place] [facility] [address] [id number] [place] [address] Feb, [facility] [place] [facility] [address] [id number] [place] [address] Feb, [facility] [place] [facility] [address] [id number] [place] [address] Feb, [facility] [place] [facility] [address] [id number] [place] [address] Feb, [facility] [place] [facility] [address] [id number] [place] [address] Feb, [facility] [place] [facility] [address] [id number] [place] [address] Feb, [facility] [place] [facility] [address] [id number], [place] [address] Feb, [facility] [place] [facility] [address] [id number], [place] [address] Feb, [facility] [place] [facility] [address] [id number] [place] [address] Feb, [facility] [place] [facility] [address] [id number] [place] [address] Jan, [facility] [place] [facility] [address] [id number] [place] [address] Jan, [facility] [place] [facility] [address] [id number] [place] [address] 20 Jan, 2013 [facility] [address] [id number] [place] [address] 20 Jan, 2013 [facility] [place] [facility] [address] [id number] [place] [address] 18 Jan, 2013 [facility] [place] [facility] [address] [id number] [place] [address] 15 Jan, 2013 [facility] [place] [facility] [address] [id number] [place] [address] 15 Jan, 2013 [facility] [place] [facility] [address] [id number] [place] [address] 14 Jan, 2013 [facility] [place] [facility] [address] [id number] [place] [address] 14 Jan, 2013 [facility] [place] [facility] [address] [id number] [place] [address] 06 Jan, 2013 [facility] [place] [facility] [address] [id number] [place] [address] 06 Jan, 2013 [facility] [place] [facility] [address] [id number] [place] [address] 05 Jan, 2013 [facility] [place] [facility] [address] [id number] [place] [address] 05 Jan, 2013 [facility] [place] [facility] [address] [id number] [place] [address] Dec, [facility] [place] [facility] [address] [id number], [place] [address] Dec, [facility] [place] [facility] [address] [id number] [place] [address] Dec, [facility] [place] [facility] [address] [id number] [place] [address] Dec, [facility] [place] [facility] [address] [id number], [place] [address] 27 Nov, 2012 [facility] [place] [facility] [address] [id number] [place] [address] Nov, [facility] [place] [facility] [address] [id number] [place] [address] Nov, [facility] [place] [facility] [address] [id number] [place] [address] Oct, [facility] [place] [facility] [address] [id number] [place] [address] Oct, [facility] [place] [facility] [address] [id number] [place] [address] Oct, [facility] [place] [facility] [address] [id number] [place] [address] Oct, [facility] [place] [facility] [address] [id number] [place] [address] Oct, [facility] [place] [facility] [address] [id number] [place] [address] Oct, [facility] [place] [facility] [address] [id number] [place] [address] Sep, [facility] [place] [facility] [address] [id number] [place] [address] Sep, [facility] [place] [facility] [address] [id number] [place] [address] Sep, [facility] [place] [facility] [address] [id number] [place] [address] Sep, [facility] [place] [facility] [address] [id number] [place] [address] Sep, [facility] [place] [facility] [address] [id number] [place] [address] Sep, [facility] [place] [facility] [address] [id number] [place] [address] Sep, [facility] [place] [facility] [address] [id number] [place] [address] Sep, [facility] [address] [id number] [place] [address] Sep, [facility] [place] [facility] [address] [id number] [place] [address] Aug, [facility] [place] [facility] [address] [id number] [place] [address] Aug, [facility] [place] [facility] [address] [id number] [place] [address] Aug, [facility] [place] [facility] [address] [id number] [place] [address] Aug, [facility] [place] [facility] [address] [id number] [place] [address] Aug, [facility] [place] [facility] [address] [id number] [place] [address] Aug, [facility] [place] [facility] [address] [id number] [place] [address] Aug, [facility] [place] [facility] [address] [id number] [place] [address] July, [facility] [place] [facility] [address] [id number] [place] [address] July, [facility] [place] [facility] [address] [id number] [place] [address] July, [facility] [place] [facility] [address] [id number] [place] [address] Jun, [facility] [place] [facility] [address] [id number] [place] [address] Jun, [facility] [place] [facility] [address] [id number] [place] [address] Jun, [facility] [place] [facility] [address] [id number] [place] [address] Jun, [facility] [place] [facility] [address] [id number] [place] [address] 29 May, 2012 [facility] [address] [id number] [place] [address] 18 May, 2012 [facility] [address] [id number] [place] [address] 18 May, 2012 [facility] [address] [id number] [place] [address] 15 May, 2012 [facility] [address] [id number] [place] [address] 14 May, 2012 [facility] [address] [id number] [place] [address] 07 May, 2012 [facility] [address] [id number] [place] [address] 06 May, 2012 [facility] [address] [id number] [place] [address] 04 May, 2012 [facility] [address] [id number] [place] [address] 18 Apr, 2012 [facility] [address] [id number] [place] [address] 17 Feb, 2012 [facility] [address] [id number] [place] [address] 17 Feb, 2012 [facility] [address] [id number] [place] [address] 17 Feb, 2012 [facility] [address] [id number] [place] [address] 17 Feb, 2012 [facility] [address] [id number] [place] [address] 13 Feb, 2012 [facility] [address] [id number] [place] [address] 13 Feb, 2012 [facility] [address] [id number] [place] [address] Feb, [facility] [place] [facility] [address] [id number] [place] [address] Feb, [facility] [place] [facility] [address] [id number] [place] [address] Feb, [facility] [place] [facility] [address] [id number] [place] [address] Feb, [facility] [place] [facility] [address] [id number] [place] [address] Jan, [facility] [place] [facility] [address] [id number] [place] [address] Jan, [facility] [place] [facility] [address] [id number] [place] [address] Jan, [facility] [place] [facility] [address] [id number] [place] [address] Jan, [facility] [place] [facility] [address] [id number], [place] [address] Jan, [facility] [place] [facility] [address] [id number] [place] [address] Jan, [facility] [place] [facility] [address] [id number], [place] [address] Jan, [facility] [place] [facility] [address] [id number], [place] [address] Jan, [facility] [place] [facility] [address] [id number], [place] [address] Dec, [facility] [place] [facility] [address] [id number], [place] [address] Dec, [facility] [place] [facility] [address] [id number], [place] [address] Dec, [facility] [place] [facility] [address] [id number], [place] [address] Dec, [facility] [place] [facility] [address] [id number], [place] [address] Dec, [facility] [place] [facility] [address] [id number] [place] [address] Dec, [facility] [place] [facility] [address] [id number] [place] [address] Dec, [facility] [place] [facility] [address] [id number] [place] [address] Nov, [facility] [place] [facility] [address] [id number] [place] [address] Nov, [facility] [place] [facility] [address] [id number] [place] [address] Nov, [facility] [place] [facility] [address] [id number] [place] [address] Oct, [facility] [place] [facility] [address] [id number] [place] [address] Oct, [facility] [place] [facility] [address] [id number] [place] [address] Oct, [facility] [place] [facility] [address] [id number] [place] [address] Oct, [facility] [place] [facility] [address] [id number] [place] [address] Sep, [facility] [place] [facility] [address] [id number] [place] [address] Sep, [facility] [place] [facility] [address] [id number] [place] [address] Sep, [facility] [place] [facility] [address] [id number] [place] [address] Aug, [facility] [place] [facility] [address] [id number] [place] [address] Aug, [facility] [place] [facility] [address] [id number] [place] [address] July, [facility] [place] [facility] [address] [id number] [place] [address] July, [facility] [place] [facility] [address] [id number] [place] [address] July, [facility] [place] [facility] [address] [id number] [place] [address] Jun, [facility] [place] [facility] [address] [id number] [place] [address] Jun, [facility] [place] [facility] [address] [id number] [place] [address] May, [facility] [place] [facility] [address] [id number] [place] [address] Apr, [facility] [place] [facility] [address] [id number] [place] [address] Apr, [facility] [place] [facility] [address] [id number] [place] [address] Apr, [facility] [place] [facility] [address] [id number] [place] [address] Mar, [facility] [place] [facility] [address] [id number] [place] [address] Mar, [facility] [place] [facility] [address] [id number] [place] [address] Mar, [facility] [place] [facility] [address] [id number] [place] [address] Mar, [facility] [place] [facility] [address] [id number] [place] [address] Feb, [facility] [place] [facility] [address] [id number] [place] [address] Feb, [facility] [place] [facility] [address] [id number] [place] [address] Feb, [facility] [place] [facility] [address] [id number] [place] [address] 05 Feb, 2011 [facility] [place] [facility] [address] [id number] [place] [address] 30 Jan, 2011 [facility] [place] [facility] [address] [id number] [place] [address] 17 Jan, 2011 [facility] [place] [facility] [address] [id number] [place] [address] 16 Jan, 2011 [facility] [place] [facility] [address] [id number] [place] [address] 16 Jan, 2011 [facility] [place] [facility] [address] [id number] [place] [address] Jan, [facility] [place] [facility] [address] [id number] [place] [address] Dec, [facility] [place] [facility] [address] [id number] [place] [address] Sep, [facility] [place] [facility] [address] [id number] [place] [address] 31 Feb, 2010 [facility] [place] [facility] [address] [id number] [place] [address] 30 Feb, 2010 [facility] [place] [facility] [address] [id number] [place] [address] Feb, [facility] [place] [facility] [address] [id number], [place] [address] 29 Dec, 2009 [facility] [place] [facility] [address] [id number], [place] [address] Dec, [facility] [place] [facility] [address] [id number] [place] [address] Oct, [facility] [place] [facility] [address] [id number] [place] [address] 15 Aug, 2009 [facility] [place] [facility] [address] [id number] [place] [address] 15 Feb, 2009 [facility] [place] [facility] [address] [id number], [place] [address] Feb, [facility] [id number], [place] [address] Jan, [facility] [id number], [place] [address] Jan, [facility] [address], [place] [address] Dec, [facility] [address], [place] [address] Dec, [facility] [id number], [place] [address] Nov, IMMUNIZATIONS No Known Immunizations SOCIAL HISTORY Never Assessed REASON FOR VISIT EMR-[facility] [place] OF CARE VITAL SIGNS [...]
--- OUTSIDE RECORDS SUMMARY | 2018-09-29 17:37 | XMS REPORT ---
Author Author Migration, Doctor Organization [facility] Address Unknown Phone Unavailable Care Team Providers Care Funeral Arranger Name Role Phone Migration, Doctor Unavailable Unavailable PROBLEMS Type Condition ICD9-CM Code KOL26-HT Code Onset Dates Condition Status SNOMED Code Problem Paranoid schizophrenia, chronic condition 295.32 Active 98138915 Problem Intermittent explosive disorder 312.34 Active 63862911 Problem Hyperlipemia E78.5 Active 20231234 Problem Mildly mentally retarded F70 Active 82419549 Problem Stress incontinence, male N39.3 Active 747409059 Problem Paranoid schizophrenia, chronic condition F20.0 Active 01036447 Problem Mild intellectual disabilities F70 Active 95602506 Problem Enuresis R32 Active 58768747 Problem High risk medication use Z79.899 Active 837720006 Problem 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 Active 26483991 Problem Seizures R56.9 Active 06121415 Problem Unsteady gait R26.81 Active 44134706 Problem Severe episode of recurrent major depressive disorder, with psychotic features F33.3 Active 84674266 Problem Constipation, unspecified constipation type K59.00 Active 23822837 Problem Dysphagia, unspecified type R13.10 Active 42582094 ALLERGIES No Information ENCOUNTERS Encounter Location Date Diagnosis [facility] [address], [place] [address] Sep, [facility] [id number] [place] [address] Jun, Paranoid schizophrenia, chronic condition F20.0 ; 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 ; Mild intellectual disabilities F70 and High risk medication use Z79.899 [facility] [id number] [place] [address] Jun, Paranoid schizophrenia, chronic condition F20.0 ; 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 and Mild intellectual disabilities F70 [facility] [id number] [id number] May, Dental examination Z01.20 [facility] [id number] [place] [address] Mar, Paranoid schizophrenia, chronic condition F20.0 and Mild intellectual disabilities F70 [facility] [address], [place] [address] Mar, Paranoid schizophrenia, chronic condition F20.0 ; High risk medication use Z79.899 ; Mild intellectual disabilities F70 and Anxiety F41.9 [facility] [address], [place] [address] Feb, [facility] [id number] [place] [address] Nov, Paranoid schizophrenia, chronic condition F20.0 ; Mild intellectual disabilities F70 ; Enuresis R32 ; Dysphagia, unspecified type R13.10 and High risk medication use Z79.899 [facility] [address], [place] [address] Oct, [facility] [id number] [place] [address] Oct, [facility] [address], [place] [address] Oct, Paranoid schizophrenia, chronic condition F20.0 ; Enuresis R32 ; Mild intellectual disabilities F70 ; High risk medication use Z79.899 and Dysphagia, unspecified type R13.10 [facility] [address], [place] [address] July, Paranoid schizophrenia, chronic condition F20.0 and Mild intellectual disabilities F70 [facility] [id number], [place] [address] Jun, Paranoid schizophrenia, chronic condition F20.0 [facility] [address], [place] [address] May, [facility] [id number] [place] [address] 13 Apr, 2017 Paranoid schizophrenia, chronic condition F20.0 ; Mild intellectual disabilities F70 and High risk medication use Z79.899 [facility] [id number] [place] [address] 08 Apr, 2017 [facility] [id number] [place] [address] Mar, [facility] [id number] [place] [address] Mar, [facility] [id number] [place] [address] Mar, Contusion of nose, initial encounter S00.33XA [facility] [id number] [place] [address] Mar, Paranoid schizophrenia, chronic condition F20.0 ; Severe episode of recurrent major depressive disorder, with psychotic features F33.3 and Mild intellectual disabilities F70 [facility] [id number] [place] [address] Mar, Constipation, unspecified constipation type K59.00 and Abrasion of right ear, initial encounter S00.411A [facility] [id number] [place] [address] Mar, [facility] [id number] [place] [id number] Feb, Encounter for dental examination and cleaning without abnormal findings Z01.20 [facility] [id number] [place] [address] Feb, [facility] [id number] [place] [address] Feb, Paranoid schizophrenia, chronic condition F20.0 ; Mild intellectual disabilities F70 and High risk medication use Z79.899 [place] [address] [place] [address] Jan, [facility] [id number] [place] [address] Jan, Unsteady gait R26.81 [facility] [id number], [place] [address] Dec, Encounter for immunization Z23 [facility] [id number] [place] [address] Nov, [facility] [id number] [place] [address] Oct, Paranoid schizophrenia, chronic condition F20.0 ; Mild intellectual disabilities F70 and High risk medication use Z79.899 [facility] [id number] [place] [address] Sep, [facility] [id number] [place] [address] July, [facility] [id number] [place] [address] Jun, High risk medication use Z79.899 [facility] [id number] [place] [address] Apr, [facility] [address], [place] [address] Apr, Paranoid schizophrenia, chronic condition F20.0 ; Mild intellectual disabilities F70 and High risk medication use Z79.899 [facility] [id number], [place] [address] Apr, [facility] [id number] [place] [address] Feb, [facility] [id number] [place] [address] Jan, [facility] [id number] [place] [address] Jan, [facility] [address] [facility] [id number] [address] Jan, Paranoid schizophrenia, chronic condition F20.0 [facility] [id number], [place] [address] Dec, Paranoid schizophrenia, chronic condition F20.0 ; Mild intellectual disabilities F70 and High risk medication use Z79.899 [facility] [address], [place] [address] Dec, [facility] [id number] [address] Nov, Paranoid schizophrenia, chronic condition F20.0 ; Mild intellectual disabilities F70 and High risk medication use Z79.899 [facility] [address], [place] [address] Oct, [facility] [id number], [place] [address] Oct, [facility] [id number], [place] [address] Oct, [facility] [address], [place] [address] Oct, [facility] [address], [place] [address] Aug, [facility] [id number], [place] [address] Jun, Paranoid schizophrenia, chronic condition F20.0 ; High risk medication use Z79.899 and Mild intellectual disabilities F70 [facility] [id number], [place] [address] Apr, High risk medication use Z79.899 ; Paranoid schizophrenia, chronic condition F20.0 and Mild intellectual disabilities F70 [facility] [address] [id number] Apr, Encounter for dental examination Z01.20 [facility] [address], [place] [address] Apr, [facility] [id number] [place] [address] Mar, Paranoid schizophrenia, chronic condition F20.0 ; Mildly mentally retarded F70 and High risk medication use Z79.899 [facility] [id number] [place] [address] Feb, Paranoid schizophrenia F20.0 [facility] [id number] [place] [address] Dec, [facility] [id number] [place] [address] Dec, Paranoid schizophrenia, chronic condition F20.0 and Mild mental retardation F70 [facility] [id number] [place] [address] Dec, [facility] [id number] [place] [address] Dec, [facility] [id number] [place] [address] Dec, [facility] [address], [place] [address] Dec, High risk medication use Z79.899 and Hyperlipemia E78.5 [facility] [address], [place] [address] Nov, [facility] [id number] [place] [address] Sep, [facility] [id number] [place] [address] Sep, Paranoid schizophrenia, chronic condition 295.32 and Mild mental retardation 317 [facility] [id number] [place] [address] 14 Jun, 2014 [facility] [place] [facility] [address] [id number] [place] [address] 13 Jun, 2014 [facility] [place] [facility] [address] [id number] [place] [address] Apr, 2014 [facility] [place] [facility] [address] [id number] [place] [address] Apr, 2014 [facility] [place] [facility] [address] [id number] [place] [address] Apr, 2014 [facility] [place] [facility] [address] [id number] [place] [address] Apr, 2014 [facility] [place] [facility] [address] [id number] [place] [address] Apr, [facility] [place] [facility] [address] [id number] [place] [address] Apr, [facility] [place] [facility] [address] [id number] [place] [address] Mar, [facility] [place] [facility] [address] [id number] [place] [address] Mar, [facility] [place] [facility] [address] [facility] [id number] [place] [address] Mar, [facility] [place] [facility] [address] [id number] [place] [address] Mar, [facility] [place] [facility] [address] [id number] [place] [address] Mar, [facility] [place] [facility] [address] [id number] [place] [address] Mar, [facility] [place] [facility] [address] [facility] [id number] [place] [address] Feb, [facility] [place] [facility] [address] [id number] [place] [address] Feb, [facility] [place] [facility] [address] [id number] [place] [address] Jan, [facility] [place] [facility] [address] [id number] [place] [address] Jan, [facility] [place] [facility] [address] [id number] [place] [address] Jan, [facility] [place] [facility] [address] [id number] [place] [address] Jan, [facility] [place] [facility] [address] [id number] [place] [address] Jan, [facility] [place] [facility] [address] [id number] [place] [address] Jan, [facility] [place] [facility] [address] [id number] [place] [address] Jan, [facility] [place] [facility] [address] [id number] [place] [address] Dec, [facility] [place] [facility] [address] [id number] [place] [address] Dec, [facility] [place] [facility] [address] [id number] [place] [address] Dec, [facility] [place] [facility] [address] [id number] [place] [address] Dec, [facility] [place] [facility] [address] [id number], [place] [address] Dec, [facility] [place] [facility] [address] [id number] [place] [address] Dec, [facility] [place] [facility] [address] [id number] [place] [address] Dec, [facility] [place] [facility] [address] [id number], [place] [address] Dec, [facility] [place] [facility] [address] [id number], [place] [address] Nov, [facility] [place] [facility] [address] [id number] [place] [address] Nov, [facility] [place] [facility] [address] [id number] [place] [address] Nov, [facility] [place] [facility] [address] [id number] [place] [address] Nov, [facility] [place] [facility] [address] [id number] [place] [address] Oct, [facility] [place] [facility] [address] [id number] [place] [address] Oct, [facility] [place] [facility] [address] [id number] [place] [address] Oct, [facility] [place] [facility] [address] [id number] [place] [address] Oct, [facility] [place] [facility] [address] [id number] [place] [address] Oct, [facility] [place] [facility] [address] [id number] [place] [address] Oct, [facility] [place] [facility] [address] [id number] [place] [address] Sep, [facility] [place] [facility] [address] [id number] [place] [address] Sep, [facility] [place] [facility] [address] [id number] [place] [address] Sep, [facility] [place] [facility] [address] [id number] [place] [address] Sep, [facility] [place] [facility] [address] [id number] [place] [address] Sep, [facility] [place] [facility] [address] [id number] [place] [address] Sep, [facility] [place] [facility] [address] [id number] [place] [address] Sep, [facility] [place] [facility] [address] [id number] [place] [address] Sep, [facility] [place] [facility] [address] [id number] [place] [address] Sep, [facility] [place] [facility] [address] [id number] [place] [address] Sep, [facility] [place] [facility] [address] [id number] [place] [address] Aug, [facility] [place] [facility] [address] [id number] [place] [address] Aug, [facility] [place] [facility] [address] [id number] [place] [address] Aug, [facility] [place] [facility] [address] [id number] [place] [address] Aug, [facility] [place] [facility] [address] [id number] [place] [address] Aug, [facility] [place] [facility] [address] [id number] [place] [address] Aug, [facility] [place] [facility] [address] [id number] [place] [address] Aug, [facility] [place] [facility] [address] [id number] [place] [address] Aug, [facility] [place] [facility] [address] [id number] [place] [address] Aug, [facility] [place] [facility] [address] [id number] [place] [address] Aug, [facility] [place] [facility] [address] [id number] [place] [address] July, [facility] [place] [facility] [address] [id number] [place] [address] July, [facility] [place] [facility] [address] [id number] [place] [address] July, [facility] [place] [facility] [address] [id number] [place] [address] July, [facility] [place] [facility] [address] [id number] [place] [address] July, [facility] [place] [facility] [address] [id number] [place] [address] July, [facility] [place] [facility] [address] [id number] [place] [address] July, [facility] [place] [facility] [address] [id number] [place] [address] July, [facility] [place] [facility] [address] [id number] [place] [address] Jun, [facility] [place] [facility] [address] [id number] [place] [address] Jun, [facility] [place] [facility] [address] [id number] [place] [address] Jun, [facility] [place] [facility] [address] [id number] [place] [address] Jun, [facility] [place] [facility] [address] [id number] [place] [address] May, [facility] [place] [facility] [address] [id number] [place] [address] May, [facility] [place] [facility] [address] [id number] [place] [address] May, [facility] [place] [facility] [address] [id number] [place] [address] May, [facility] [place] [facility] [address] [id number] [place] [address] May, [facility] [place] [facility] [address] [id number] [place] [address] May, [facility] [place] [facility] [address] [id number] [place] [address] Apr, [facility] [place] [facility] [address] [id number] [place] [address] Apr, [facility] [place] [facility] [address] [id number] [place] [address] Apr, [facility] [place] [facility] [address] [id number] [place] [address] Apr, [facility] [place] [facility] [address] [id number] [place] [address] Apr, [facility] [place] [facility] [address] [id number] [place] [address] Apr, [facility] [place] [facility] [address] [id number] [place] [address] Apr, [facility] [place] [facility] [address] [id number] [place] [address] Apr, [facility] [place] [facility] [address] [id number] [place] [address] Apr, [facility] [place] [facility] [address] [id number] [place] [address] Apr, [facility] [place] [facility] [address] [id number] [place] [address] Mar, [facility] [place] [facility] [address] [id number] [place] [address] Mar, [facility] [place] [facility] [address] [id number] [place] [address] Mar, [facility] [place] [facility] [address] [id number] [place] [address] Mar, [facility] [place] [facility] [address] [id number] [place] [address] Mar, [facility] [place] [facility] [address] [id number] [place] [address] Mar, [facility] [place] [facility] [address] [id number] [place] [address] Mar, [facility] [place] [facility] [address] [id number] [place] [address] Mar, [facility] [place] [facility] [address] [id number] [place] [address] Feb, [facility] [place] [facility] [address] [id number] [place] [address] Feb, [facility] [place] [facility] [address] [id number] [place] [address] Feb, [facility] [place] [facility] [address] [id number] [place] [address] Feb, [facility] [place] [facility] [address] [id number] [place] [address] Feb, [facility] [place] [facility] [address] [id number] [place] [address] Feb, [facility] [place] [facility] [address] [id number] [place] [address] Feb, [facility] [place] [facility] [address] [id number], [place] [address] Feb, [facility] [place] [facility] [address] [id number], [place] [address] Feb, [facility] [place] [facility] [address] [id number] [place] [address] Feb, [facility] [place] [facility] [address] [id number] [place] [address] Jan, [facility] [place] [facility] [address] [id number] [place] [address] Jan, [facility] [place] [facility] [address] [id number] [place] [address] 20 Jan, 2013 [facility] [address] [id number] [place] [address] 20 Jan, 2013 [facility] [place] [facility] [address] [id number] [place] [address] 18 Jan, 2013 [facility] [place] [facility] [address] [id number] [place] [address] 15 Jan, 2013 [facility] [place] [facility] [address] [id number] [place] [address] 15 Jan, 2013 [facility] [place] [facility] [address] [id number] [place] [address] 14 Jan, 2013 [facility] [place] [facility] [address] [id number] [place] [address] 14 Jan, 2013 [facility] [place] [facility] [address] [id number] [place] [address] 06 Jan, 2013 [facility] [place] [facility] [address] [id number] [place] [address] 06 Jan, 2013 [facility] [place] [facility] [address] [id number] [place] [address] 05 Jan, 2013 [facility] [place] [facility] [address] [facility] [id number] [place] [address] 05 Jan, 2013 [facility] [place] [facility] [address] [id number] [place] [address] Dec, [facility] [place] [facility] [address] [id number] [address] Dec, [facility] [place] [facility] [address] [id number] [place] [address] Dec, [facility] [place] [facility] [address] [id number] [place] [address] Dec, [facility] [place] [facility] [address] [id number], [place] [address] 27 Nov, 2012 [facility] [place] [facility] [address] [id number] [place] [address] Nov, [facility] [place] [facility] [address] [id number] [place] [address] Nov, [facility] [place] [facility] [address] [id number] [place] [address] Oct, [facility] [place] [facility] [address] [id number] [place] [address] Oct, [facility] [place] [facility] [address] [id number] [place] [address] Oct, [facility] [place] [facility] [address] [id number] [place] [address] Oct, [facility] [place] [facility] [address] [id number] [place] [address] Oct, [facility] [place] [facility] [address] [id number] [place] [address] Oct, [facility] [place] [facility] [address] [id number] [place] [address] Sep, [facility] [place] [facility] [address] [id number] [place] [address] Sep, [facility] [place] [facility] [address] [id number] [place] [address] Sep, [facility] [place] [facility] [address] [id number] [place] [address] Sep, [facility] [place] [facility] [address] [id number] [place] [address] Sep, [facility] [place] [facility] [address] [id number] [place] [address] Sep, [facility] [place] [facility] [address] [id number] [place] [address] Sep, [facility] [place] [facility] [address] [id number] [place] [address] Sep, [facility] [address] [id number] [place] [address] Sep, [facility] [place] [facility] [address] [id number] [place] [address] Aug, [facility] [place] [facility] [address] [id number] [place] [address] Aug, [facility] [place] [facility] [address] [id number] [place] [address] Aug, [facility] [place] [facility] [address] [id number] [place] [address] Aug, [facility] [place] [facility] [address] [id number] [place] [address] Aug, [facility] [place] [facility] [address] [id number] [place] [address] Aug, [facility] [place] [facility] [address] [id number] [place] [address] Aug, [facility] [place] [facility] [address] [id number] [place] [address] July, [facility] [place] [facility] [address] [id number] [place] [address] July, [facility] [place] [facility] [address] [id number] [place] [address] July, [facility] [place] [facility] [address] [id number] [place] [address] Jun, [facility] [place] [facility] [address] [id number] [place] [address] Jun, [facility] [place] [facility] [address] [id number] [place] [address] Jun, [facility] [place] [facility] [address] [id number] [place] [address] Jun, [facility] [place] [facility] [address] [id number] [place] [address] 29 May, 2012 [facility] [address] [id number] [place] [address] 18 May, 2012 [facility] [facility] [address] [id number] [place] [address] 18 May, 2012 [facility] [address] [id number] [place] [address] 15 May, 2012 [facility] [address] [id number] [place] [address] 14 May, 2012 [facility] [address] [id number] [place] [address] 07 May, 2012 [facility] [address] [id number] [place] [address] 06 May, 2012 [facility] [address] [id number] [place] [address] 04 May, 2012 [facility] [address] [id number] [place] [address] 18 Apr, 2012 [facility] [address] [id number] [place] [address] 17 Feb, 2012 [facility] [address] [id number] [place] [address] 17 Feb, 2012 [facility] [address] [id number] [place] [address] 17 Feb, 2012 [facility] [address] [id number] [place] [address] 17 Feb, 2012 [facility] [address] [id number] [place] [address] 13 Feb, 2012 [facility] [address] [id number] [place] [address] 13 Feb, 2012 [facility] [address] [id number] [place] [address] Feb, [facility] [place] [facility] [address] [id number] [place] [address] Feb, [facility] [place] [facility] [address] [id number] [place] [address] Feb, [facility] [place] [facility] [address] [id number] [place] [address] Feb, [facility] [place] [facility] [address] [id number] [place] [address] Jan, [facility] [place] [facility] [address] [id number] [place] [address] Jan, [facility] [place] [facility] [address] [id number] [place] [address] Jan, [facility] [place] [facility] [address] [id number] [place] [address] Jan, [facility] [place] [facility] [address] [id number], [place] [address] Jan, [facility] [place] [facility] [address] [id number] [place] [address] Jan, [facility] [place] [facility] [address] [facility] [id number], [place] [address] Jan, [facility] [place] [facility] [address] [id number], [place] [address] Jan, [facility] [place] [facility] [address] [id number], [place] [address] Dec, [facility] [place] [facility] [address] [id number], [place] [address] Dec, [facility] [place] [facility] [address] [id number], [place] [address] Dec, [facility] [place] [facility] [address] [facility] [id number], [place] [address] Dec, [facility] [place] [facility] [address] [id number], [place] [address] Dec, [facility] [place] [facility] [address] [id number] [place] [address] Dec, [facility] [place] [facility] [address] [id number] [place] [address] Dec, [facility] [place] [facility] [address] [id number] [place] [address] Nov, [facility] [place] [facility] [address] [id number] [place] [address] Nov, [facility] [place] [facility] [address] [id number] [place] [address] Nov, [facility] [place] [facility] [address] [id number] [place] [address] Oct, [facility] [place] [facility] [address] [id number] [place] [address] Oct, [facility] [place] [facility] [address] [id number] [place] [address] Oct, [facility] [place] [facility] [address] [id number] [place] [address] Oct, [facility] [place] [facility] [address] [id number] [place] [address] Sep, [facility] [place] [facility] [address] [id number] [place] [address] Sep, [facility] [place] [facility] [address] [id number] [place] [address] Sep, [facility] [place] [facility] [address] [id number] [place] [address] Aug, [facility] [place] [facility] [address] [id number] [place] [address] Aug, [facility] [place] [facility] [address] [facility] [id number] [place] [address] July, [facility] [place] [facility] [address] [id number] [place] [address] July, [facility] [place] [facility] [address] [id number] [place] [address] July, [facility] [place] [facility] [address] [id number] [place] [address] Jun, [facility] [place] [facility] [address] [id number] [place] [address] Jun, [facility] [place] [facility] [address] [id number] [place] [address] May, [facility] [place] [facility] [address] [id number] [place] [address] Apr, [facility] [place] [facility] [address] [id number] [place] [address] Apr, [facility] [place] [facility] [address] [id number] [place] [address] Apr, [facility] [place] [facility] [address] [id number] [place] [address] Mar, [facility] [place] [facility] [address] [id number] [place] [address] Mar, [facility] [place] [facility] [address] [id number] [place] [address] Mar, [facility] [place] [facility] [address] [id number] [place] [address] Mar, [facility] [place] [facility] [address] [id number] [place] [address] Feb, [facility] [place] [facility] [address] [id number] [place] [address] Feb, [facility] [place] [facility] [address] [id number] [place] [address] Feb, [facility] [place] [facility] [address] [id number] [place] [address] 05 Feb, 2011 [facility] [place] [facility] [address] [id number] [place] [address] 30 Jan, 2011 [facility] [place] [facility] [address] [id number] [place] [address] 17 Jan, 2011 [facility] [place] [facility] [address] [id number] [place] [address] 16 Jan, 2011 [facility] [place] [facility] [address] [id number] [place] [address] 16 Jan, 2011 [facility] [place] [facility] [address] [id number] [place] [address] Jan, [facility] [place] [facility] [address] [id number] [place] [address] Dec, [facility] [place] [facility] [address] [id number] [place] [address] Sep, [facility] [place] [facility] [address] [id number] [place] [address] 31 Feb, 2010 [facility] [place] [facility] [address] [id number] [place] [address] 30 Feb, 2010 [facility] [place] [facility] [address] [id number] [place] [address] Feb, [facility] [place] [facility] [address] [id number], [place] [address] 29 Dec, 2009 [facility] [place] [facility] [address] [id number], [place] [address] Dec, [facility] [place] [facility] [address] [id number] [place] [address] Oct, [facility] [place] [facility] [address] [id number] [place] [address] 15 Aug, 2009 [facility] [place] [facility] [address] [id number] [place] [address] 15 Feb, 2009 [facility] [place] [facility] [address] [id number], [place] [address] Feb, [facility] [id number], [place] [address] Jan, [facility] [id number], [place] [address] Jan, [facility] [id number], [place] [address] Dec, [facility] [id number], [place] [address] Dec, [facility] [id number], [place] [address] Nov, IMMUNIZATIONS No Known Immunizations SOCIAL HISTORY Never Assessed REASON FOR VISIT EMR-[facility] [place] PLAN OF CARE VITAL SIGNS MEDICATIONS Unknown [...]
--- OUTSIDE RECORDS SUMMARY | 2018-09-29 17:38 | XMS REPORT ---
Author Author Migration, Doctor Organization [facility] Address Unknown Phone Unavailable Care Team Providers Care Night Nurse Name Role Phone Migration, Doctor Unavailable Unavailable PROBLEMS Type Condition ICD9-CM Code [id number] Code Onset Dates Condition Status SNOMED Code Problem Paranoid schizophrenia, chronic condition 295.32 Active 30399700 Problem Intermittent explosive disorder 312.34 Active 06486903 Problem Hyperlipemia E78.5 Active 30079322 Problem Mildly mentally retarded F70 Active 05820957 Problem Stress incontinence, male N39.3 Active 085574979 Problem Paranoid schizophrenia, chronic condition F20.0 Active 04240413 Problem Mild intellectual disabilities F70 Active 75831736 Problem Enuresis R32 Active 29448440 Problem High risk medication use Z79.899 Active 696844251 Problem 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 Active 38161307 Problem Seizures R56.9 Active 82154305 Problem Unsteady gait R26.81 Active 90743453 Problem Severe episode of recurrent major depressive disorder, with psychotic features F33.3 Active 62831167 Problem Constipation, unspecified constipation type K59.00 Active 26849830 Problem Dysphagia, unspecified type R13.10 Active 04113127 ALLERGIES No Information ENCOUNTERS Encounter Location Date Diagnosis [facility] [id number] [place] [address] Jun, [facility] [id number] [place] [address] Jun, Paranoid schizophrenia, chronic condition F20.0 ; 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 and Mild intellectual disabilities F70 [facility] [id number] [place] [id number] May, Dental examination Z01.20 [facility] [id number] [place] [address] Mar, Paranoid schizophrenia, chronic condition F20.0 and Mild intellectual disabilities F70 [facility] [address] [address] Mar, Paranoid schizophrenia, chronic condition F20.0 ; High risk medication use Z79.899 ; Mild intellectual disabilities F70 and Anxiety F41.9 [facility] [address] [address] Feb, [facility] [id number] [place] [address] Nov, Paranoid schizophrenia, chronic condition F20.0 ; Mild intellectual disabilities F70 ; Enuresis R32 ; Dysphagia, unspecified type R13.10 and High risk medication use Z79.899 [place] [id number] [place] [address] Oct, [place] [id number] [place] [address] Oct, [facility] [id number] [place] [address] Oct, Paranoid schizophrenia, chronic condition F20.0 ; Enuresis R32 ; Mild intellectual disabilities F70 ; High risk medication use Z79.899 and Dysphagia, unspecified type R13.10 [place] [address] [address] July, Paranoid schizophrenia, chronic condition F20.0 and Mild intellectual disabilities F70 [facility] [id number] [address] Jun, Paranoid schizophrenia, chronic condition F20.0 [facility] [id number] [place] [address] May, [facility] [id number] [place] [address] Apr, Paranoid schizophrenia, chronic condition F20.0 ; Mild intellectual disabilities F70 and High risk medication use Z79.899 [place] [id number] [place] [address] 08 Apr, 2017 [facility] [id number] [place] [address] Mar, [facility] [id number] [place] [address] Mar, [facility] [id number] [place] [address] Mar, Contusion of nose, initial encounter S00.33XA [facility] [id number] [place] [address] Mar, Paranoid schizophrenia, chronic condition F20.0 ; Severe episode of recurrent major depressive disorder, with psychotic features F33.3 and Mild intellectual disabilities F70 [facility] [place] [id number] [place] [address] Mar, Constipation, unspecified constipation type K59.00 and Abrasion of right ear, initial encounter S00.411A [place] [id number] [place] [address] Mar, [facility] [id number] [place] [id number] Feb, Encounter for dental examination and cleaning without abnormal findings Z01.20 [place] [id number] [place] [address] Feb, [place] [id number] [place] [address] Feb, Paranoid schizophrenia, chronic condition F20.0 ; Mild intellectual disabilities F70 and High risk medication use Z79.899 [place] [id number] [place] [address] Jan, [facility] [id number] [place] [address] Jan, Unsteady gait R26.81 [place] [address] [address] Dec, Encounter for immunization Z23 [facility] [id number] [address] Nov, [facility] [address] [address] Oct, Paranoid schizophrenia, chronic condition F20.0 ; Mild intellectual disabilities F70 and High risk medication use Z79.899 [facility] [address] [address] Sep, [facility] [address] [place] [address] July, [facility] [address] [address] Jun, High risk medication use Z79.899 [facility] [id number] [address] Apr, [facility] [address] [address] Apr, Paranoid schizophrenia, chronic condition F20.0 ; Mild intellectual disabilities F70 and High risk medication use Z79.899 [facility] [address] [address] Apr, [facility] [address] [address] Feb, [facility] [address] [address] Jan, [facility] [id number] [address] Jan, [facility] [address] [address] Jan, Paranoid schizophrenia, chronic condition F20.0 [facility] [address] [address] Dec, Paranoid schizophrenia, chronic condition F20.0 ; Mild intellectual disabilities F70 and High risk medication use Z79.899 [facility] [address] [address] Dec, [facility] [address] [address] Nov, Paranoid schizophrenia, chronic condition F20.0 ; Mild intellectual disabilities F70 and High risk medication use Z79.899 [facility] [address] [address] Oct, [facility] [id number] [place] [address] Oct, [facility] [id number] [place] [address] Oct, [facility] [id number] [place] [address] Oct, [facility] [id number] [place] [address] Aug, [facility] [id number] [place] [address] Jun, Paranoid schizophrenia, chronic condition F20.0 ; High risk medication use Z79.899 and Mild intellectual disabilities F70 [facility] [address] [address] Apr, High risk medication use Z79.899 ; Paranoid schizophrenia, chronic condition F20.0 and Mild intellectual disabilities F70 [facility] [address] [id number] 17 Apr, 2015 Encounter for dental examination Z01.20 [facility] [address] [address] Apr, [facility] [id number] [place] [address] Mar, Paranoid schizophrenia, chronic condition F20.0 ; Mildly mentally retarded F70 and High risk medication use Z79.899 [facility] [id number] [address] Feb, Paranoid schizophrenia F20.0 [facility] [id number] [address] Dec, [facility] [id number] [place] [address] Dec, Paranoid schizophrenia, chronic condition F20.0 and Mild mental retardation F70 [facility] [id number] [place] [address] Dec, [facility] [id number] [address] Dec, [facility] [id number] [place] [address] Dec, [facility] [id number] [place] [address] Dec, High risk medication use Z79.899 and Hyperlipemia E78.5 [facility] [address] [address] Nov, [facility] [address] [address] Sep, [facility] [address] [address] Sep, Paranoid schizophrenia, chronic condition 295.32 and Mild mental retardation 317 [facility] [id number] [place] [address] 14 Jun, 2014 [facility] [address] [address] Jun, [facility] [id number] [place] [address] Apr, 2014 [facility] [place] [facility] [address] [id number] [place] [address] Apr, 2014 [facility] [place] [facility] [address] [id number] [place] [address] Apr, 2014 [facility] [place] [facility] [address] [id number] [place] [address] Apr, 2014 [facility] [place] [facility] [address] [id number] [place] [address] Apr, 2014 [facility] [place] [facility] [address] [id number] [place] [address] Apr, [facility] [place] [facility] [address] [id number] [place] [address] Mar, [facility] [place] [facility] [address] [facility] [id number] [place] [address] Mar, [facility] [place] [facility] [address] [id number] [place] [address] Mar, [facility] [place] [facility] [address] [facility] [id number] [place] [address] Mar, [facility] [place] [facility] [address] [facility] [id number] [place] [address] Mar, [facility] [place] [facility] [address] [facility] [id number] [place] [address] Mar, [facility] [place] [facility] [address] [id number] [place] [address] Feb, [facility] [place] [facility] [address] [id number] [place] [address] Feb, [facility] [place] [facility] [address] [id number] [place] [address] Jan, [facility] [place] [facility] [address] [facility] [id number] [place] [address] Jan, [facility] [place] [facility] [address] [id number] [place] [address] Jan, [facility] [place] [facility] [address] [id number] [place] [address] Jan, [facility] [place] [facility] [address] [id number] [place] [address] Jan, [facility] [place] [facility] [address] [id number] [place] [address] Jan, [facility] [place] [facility] [address] [id number] [place] [address] Jan, [facility] [place] [facility] [address] [id number] [place] [address] Dec, [facility] [place] [facility] [address] [id number] [place] [address] Dec, [facility] [place] [facility] [address] [id number] [place] [address] Dec, [facility] [place] [facility] [address] [id number] [place] [address] Dec, [facility] [place] [facility] [address] [id number] [place] [address] Dec, [facility] [place] [facility] [address] [id number] [place] [address] Dec, [facility] [place] [facility] [address] [id number] [place] [address] Dec, [facility] [place] [facility] [address] [id number] [place] [address] Dec, [facility] [place] [facility] [address] [id number] [place] [address] Nov, [facility] [place] [facility] [address] [id number] [place] [address] 17 Nov, 2013 [facility] [place] [facility] [address] [id number] [place] [address] Nov, [facility] [place] [facility] [address] [id number] [place] [address] Nov, [facility] [place] [facility] [address] [id number] [place] [address] Oct, [facility] [place] [facility] [address] [id number] [place] [address] Oct, [facility] [place] [facility] [address] [id number] [place] [address] Oct, [facility] [place] [facility] [address] [id number] [place] [address] Oct, [facility] [place] [facility] [address] [id number] [place] [address] Oct, [facility] [place] [facility] [address] [id number] [place] [address] Oct, [facility] [place] [facility] [address] [id number] [place] [address] Sep, [facility] [place] [facility] [address] [id number] [place] [address] Sep, [facility] [place] [facility] [address] [id number] [place] [address] Sep, [facility] [place] [facility] [address] [id number] [place] [address] Sep, [facility] [place] [facility] [address] [id number] [place] [address] Sep, [facility] [place] [facility] [address] [id number] [place] [address] Sep, [facility] [place] [facility] [address] [id number] [place] [address] Sep, [facility] [place] [facility] [address] [id number] [place] [address] Sep, [facility] [place] [facility] [address] [id number] [place] [address] Sep, [facility] [place] [facility] [address] [id number] [place] [address] Sep, [facility] [place] [facility] [address] [id number] [place] [address] Aug, [facility] [place] [facility] [address] [id number] [place] [address] Aug, [facility] [place] [facility] [address] [id number] [place] [address] Aug, [facility] [place] [facility] [address] [id number] [place] [address] Aug, [facility] [place] [facility] [address] [id number] [place] [address] Aug, [facility] [place] [facility] [address] [id number] [place] [address] Aug, [facility] [place] [facility] [address] [id number] [place] [address] Aug, [facility] [place] [facility] [address] [id number] [place] [address] Aug, [facility] [place] [facility] [address] [id number] [place] [address] Aug, [facility] [place] [facility] [address] [id number] [place] [address] Aug, [facility] [place] [facility] [address] [id number] [place] [address] July, [facility] [place] [facility] [address] [id number] [place] [address] July, [facility] [place] [facility] [address] [id number] [place] [address] July, [facility] [place] [facility] [address] [id number] [place] [address] July, [facility] [place] [facility] [address] [id number] [place] [address] July, [facility] [place] [facility] [address] [id number] [place] [address] July, [facility] [place] [facility] [address] [id number] [place] [address] July, [facility] [place] [facility] [address] [id number] [place] [address] July, [facility] [place] [facility] [address] [id number] [place] [address] Jun, [facility] [place] [facility] [address] [id number] [place] [address] Jun, [facility] [place] [facility] [address] [id number] [place] [address] Jun, [facility] [place] [facility] [address] [id number] [place] [address] Jun, [facility] [place] [facility] [address] [id number] [place] [address] May, [facility] [place] [facility] [address] [id number] [place] [address] May, [facility] [place] [facility] [address] [id number] [place] [address] May, [facility] [place] [facility] [address] [id number] [place] [address] May, [facility] [place] [facility] [address] [id number] [place] [address] May, [facility] [place] [facility] [address] [id number] [place] [address] May, [facility] [place] [facility] [address] [id number] [place] [address] 28 Apr, 2013 [facility] [place] [facility] [address] [id number] [place] [address] Apr, [facility] [address] [id number] [place] [address] Apr, [facility] [place] [facility] [address] [id number] [place] [address] Apr, [facility] [place] [facility] [address] [id number] [place] [address] Apr, [facility] [place] [facility] [address] [id number] [place] [address] Apr, [facility] [place] [facility] [address] [id number] [place] [address] Apr, [facility] [place] [facility] [address] [id number] [place] [address] Apr, [facility] [place] [facility] [address] [id number] [place] [address] Apr, [facility] [place] [facility] [address] [id number] [place] [address] Apr, [facility] [place] [facility] [address] [id number] [place] [address] Mar, [facility] [place] [facility] [address] [id number] [place] [address] Mar, [facility] [place] [facility] [address] [id number] [place] [address] Mar, [facility] [place] [facility] [address] [id number] [place] [address] Mar, [facility] [place] [facility] [address] [id number] [place] [address] Mar, [facility] [place] [facility] [address] [id number] [place] [address] Mar, [facility] [place] [facility] [address] [id number] [place] [address] 16 Mar, 2013 [facility] [place] [facility] [address] [id number] [place] [address] 16 Mar, 2013 [facility] [address] [id number] [place] [address] Feb, [facility] [address] [id number] [place] [address] Feb, [facility] [place] [facility] [address] [id number] [place] [address] Feb, [facility] [address] [id number] [place] [address] Feb, [facility] [address] [id number] [place] [address] Feb, [facility] [address] [id number] [place] [address] Feb, [facility] [address] [id number] [place] [address] Feb, [facility] [address] [id number] [place] [address] Feb, [facility] [address] [id number] [place] [address] Feb, [facility] [address] [id number] [place] [address] Feb, [facility] [place] [facility] [address] [id number][place] [address] Jan, [facility] [place] [facility] [address] [id number] [place] [address] Jan, [facility] [place] [facility] [address] [id number] [place] [address] Jan, [facility] [place] [facility] [address] [id number], [place] [address] Jan, [facility] [place] [facility] [address] [id number], [place] [address] 18 Jan, 2013 [facility] [place] [facility] [address] [id number] [place] [address] 15 Jan, 2013 [facility] [place] [facility] [address] [id number][place] [address] 15 Jan, 2013 [facility] [place] [facility] [address] [id number] [place] [address] 14 Jan, 2013 [facility] [place] [facility] [address] [id number] [place] [address] 14 Jan, 2013 [facility] [place] [facility] [address] [id number] [place] [address] Jan, [facility] [place] [facility] [address] [id number] [place] [address] Jan, [facility] [place] [facility] [address] [id number] [place] [address] Jan, [facility] [place] [facility] [address] [id number] [place] [address] Jan, [facility] [place] [facility] [address] [id number] [place] [address] Dec, [facility] [place] [facility] [address] [id number] [place] [address] Dec, [facility] [place] [facility] [address] [id number], [place] [address] Dec, [facility] [place] [facility] [address] [id number][place] [address] Dec, [facility] [place] [facility] [address] [id number], [place] [address] 27 Nov, 2012 [facility] [place] [facility] [address] [id number] [place] [address] 24 Sep2012 [facility] [place] [facility] [address] [id number] [place] [address] 13 Nov, 2012 [facility] [place] [facility] [address] [id number] [place] [address] Oct, [facility] [place] [facility] [address] [id number] [place] [address] Oct, [facility] [place] [facility] [address] [id number] [place] [address] Oct, [facility] [place] [facility] [address] [id number] [place] [address] Oct, [facility] [place] [facility] [address] [id number] [place] [address] Oct, [facility] [place] [facility] [address] [id number] [place] [address] Oct, [facility] [place] [facility] [address] [id number] [place] [address] Sep, [facility] [place] [facility] [address] [id number] [place] [address] Sep, [facility] [place] [facility] [address] [id number] [place] [address] Sep, [facility] [place] [facility] [address] [id number] [place] [address] Sep, [facility] [place] [facility] [address] [id number] [place] [address] Sep, [facility] [place] [facility] [address] [id number] [place] [address] Sep, [facility] [place] [facility] [address] [id number] [place] [address] Sep, [facility] [place] [facility] [address] [id number] [place] [address] Sep, [facility] [place] [facility] [address] [id number] [place] [address] Sep, [facility] [place] [facility] [address] [id number] [place] [address] Aug, [facility] [address] [id number] [place] [address] Aug, [facility] [place] [facility] [address] [id number] [place] [address] 07 Aug, 2012 [facility] [place] [facility] [address] [id number] [place] [address] 06 Aug, 2012 [facility] [place] [facility] [address] [id number] [place] [address] Aug, [facility] [place] [facility] [address] [id number] [place] [address] Aug, [facility] [place] [facility] [address] [id number] [place] [address] Aug, [facility] [place] [facility] [address] [id number] [place] [address] July, [facility] [place] [facility] [address] [id number] [place] [address] July, [facility] [place] [facility] [address] [id number] [place] [address] July, [facility] [place] [facility] [address] [id number] [place] [address] Jun, [facility] [place] [facility] [address] [id number] [place] [address] Jun, [facility] [place] [facility] [address] [id number] [address] 05 Jun, 2012 [facility] [place] [facility] [address] [id number] [place] [address] Jun, [facility] [place] [facility] [address] [id number] [place] [address] 29 May, 2012 [facility] [place] [facility] [address] [id number] [place] [address] 18 May, 2012 [facility] [place] [facility] [address] [id number] [place] [address] 18 May, 2012 [facility] [address] [id number] [place] [address] 15 May, 2012 [facility] [place] [facility] [address] [id number] [place] [address] 14 May, 2012 [facility] [address] [id number] [place] [address] 07 May, 2012 [facility] [place] [facility] [address] [id number] [place] [address] 06 May, 2012 [facility] [address] [id number] [place] [address] 04 May, 2012 [facility] [address] [id number] [place] [address] 18 Apr, 2012 [facility] [address] [id number] [place] [address] 17 Feb, 2012 [facility] [address] [id number] [place] [address] 17 Feb, 2012 [facility] [address] [id number] [place] [address] 17 Feb, 2012 [facility] [address] [id number] [place] [address] 17 Feb, 2012 [facility] [address] [id number] [place] [address] 13 Feb, 2012 [facility] [place] [facility] [address] [id number] [place] [address] 13 Feb, 2012 [facility] [place] [facility] [address] [id number] [place] [address] 12 Feb, 2012 [facility] [place] [facility] [address] [id number] [place] [address] 12 Feb, 2012 [facility] [place] [facility] [address] [id number] [place] [address] 03 Feb, 2012 [facility] [place] [facility] [address] [id number] [place] [address] Feb, [facility] [place] [facility] [address] [id number] [place] [address] Jan, [facility] [place] [facility] [address] [id number] [place] [address] Jan, [facility] [place] [facility] [address] [id number] [place] [address] Jan, [facility] [place] [facility] [address] [id number] [place] [address] Jan, [facility] [place] [facility] [address] [id number] [place] [address] Jan, [facility] [place] [facility] [address] [id number] [place] [address] Jan, [facility] [place] [facility] [address] [id number] [place] [address] Jan, [facility] [place] [facility] [address] [id number] [place] [address] Jan, [facility] [place] [facility] [address] [id number] [place] [address] Dec, [facility] [place] [facility] [address] [id number] [place] [address] Dec, [facility] [place] [facility] [address] [id number] [place] [address] Dec, [facility] [place] [facility] [address] [id number] [place] [address] Dec, [facility] [place] [facility] [address] [id number] [place] [address] Dec, [facility] [place] [facility] [address] [id number] [place] [address] Dec, [facility] [place] [facility] [address] [id number] [place] [address] Dec, [facility] [place] [facility] [address] [id number] [place] [address] 28 Nov, 2011 [facility] [place] [facility] [address] [id number] [place] [address] Nov, [facility] [place] [facility] [address] [id number] [place] [address] Nov, [facility] [place] [facility] [address] [id number] [place] [address] Oct, [facility] [place] [facility] [address] [id number] [place] [address] Oct, [facility] [place] [facility] [address] [id number] [place] [address] Oct, [facility] [place] [facility] [address] [id number] [place] [address] Oct, [facility] [place] [facility] [address] [id number] [place] [address] Sep, [facility] [place] [facility] [address] [id number] [place] [address] Sep, [facility] [place] [facility] [address] [id number] [place] [address] Sep, [facility] [place] [facility] [address] [id number] [place] [address] Aug, [facility] [place] [facility] [address] [id number] [place] [address] Aug, [facility] [place] [facility] [address] [id number] [place] [address] July, [facility] [place] [facility] [address] [id number] [place] [address] July, [facility] [place] [facility] [address] [id number] [place] [address] July, [facility] [place] [facility] [address] [id number] [place] [address] Jun, [facility] [address] [id number] [place] [address] Jun, [facility] [place] [facility] [address] [id number] [place] [address] May, [facility] [address] [id number] [place] [address] Apr, [facility] [place] [facility] [address] [id number] [place] [address] Apr, [facility] [address] [id number] [place] [address] Apr, [facility] [address] [id number] [place] [address] Mar, [facility] [address] [id number] [place] [address] Mar, [facility] [address] [id number] [place] [address] Mar, [facility] [address] [id number] [place] [address] Mar, [facility] [address] [id number] [place] [address] Feb, [facility] [place] [facility] [address] [id number] [place] [address] Feb, [facility] [address] [id number] [place] [address] Feb, [facility] [place] [facility] [address] [id number] [place] [address] Feb, [facility] [place] [facility] [address] [id number] [place] [address] Jan, [facility] [place] [facility] [address] [id number] [place] [address] Jan, [facility] [place] [facility] [address] [id number] [place] [address] 16 Jan, 2011 [facility] [place] [facility] [address] [id number] [place] [address] 16 Jan, 2011 [facility] [place] [facility] [address] [id number] [place] [address] Jan, [facility] [place] [facility] [address] [id number] [place] [address] Dec, [facility] [place] [facility] [address] [id number] [place] [address] 18 Sep, 2010 [facility] [place] [facility] [address] [id number] [place] [address] 31 Feb, 2010 [facility] [place] [facility] [address] [id number] [place] [address] 30 Feb, 2010 [facility] [place] [facility] [address] [id number] [place] [address] Feb, [facility] [place] [facility] [address] [id number] [place] [address] 29 Dec, 2009 [facility] [place] [facility] [address] [id number] [place] [address] 19 Dec, 2009 [facility] [place] [facility] [address] [id number] [place] [address] Oct, [facility] [place] [facility] [address] [id number] [address] 15 Aug, 2009 [facility] [place] [facility] [address] [id number] [place] [address] 15 Feb, 2009 [facility] [place] [facility] [address] [id number] [place] [address] 15 Feb, 2009 [facility] [place] [facility] [address] [id number] [place] [address] 30 Jan, 2009 [facility] [place] [facility] [address] [facility] [id number] [place] [address] Jan, [facility] [address] [facility] [id number] [place] [address] Dec, [facility] [address] [facility] [id number] [place] [address] Dec, [facility] [address] [facility] [id number] [place] [address] Nov, IMMUNIZATIONS No Known Immunizations SOCIAL HISTORY Never Assessed REASON FOR VISIT [facility] PLAN OF CARE VITAL SIGNS MEDICATIONS Medication Instructions Dosage Frequency Start Date End Date Duration Status Keppra 500 mg take 1 tablet (500 mg) by oral route 2 times per day July, Active Lipitor 20 mg 1 tablet by Oral route 1 time per day Sep, Active Loratadine 10 mg 1 tablet by Oral route 1 time per day Apr, Active Folic Acid 1 mg 0.5 tablet by Oral route 1 time per day Apr, Active Metoprolol Succinate 25 mg 1 tablet by Oral route 1 time per day July, Active Depakote ER 500 mg 4 Tablet 1 time per day Oct, Active Oxybutynin Chloride 5 mg 1 tablet by Oral route 2 times per day Sep, Active Clindamycin HCl 150 mg 2 capsule by Oral route every 6 hours for 1 days July, Active MiraLax 17 gram/dose 17 g by Oral route 1 time per day take daily Feb, Active trazodone 150 mg take 1 Tablet by Oral route 1 time per day qHS Apr, Active Docusate Sodium 100 mg take 1 capsule (100 mg) by oral route 2 times per day July, Active Protonix 40 mg 1 tablet by Oral route 1 time per day July, Active Clonazepam 2 mg 1 Tablet by Oral route 1 time per day qHS Oct, Active RESULTS No Results PROCEDURES No Known procedures INSTRUCTIONS MEDICATIONS ADMINISTERED No Known Medications MEDICAL (GENERAL) HISTORY Type Description Date Medical History High Blood Pressure Medical History Fainting/Seizures/Epilepsy Medical History Moderate MR Medical History GERD Medical History Hyperlipidemia Medical History Paranoid Schizophrenia Medical History incontenance Medical History 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
--- OUTSIDE RECORDS SUMMARY | 2018-09-29 17:38 | XMS REPORT ---
Author Author Migration, Doctor Organization [facility] Address Unknown Phone Unavailable Care Team Providers Care Hr Coordinator Name Role Phone Migration, Doctor Unavailable Unavailable PROBLEMS Type Condition ICD9-CM Code [id number] Code Onset Dates Condition Status SNOMED Code Problem Paranoid schizophrenia, chronic condition 295.32 Active 07259552 Problem Intermittent explosive disorder 312.34 Active 49292602 Problem Hyperlipemia E78.5 Active 31632541 Problem Mildly mentally retarded F70 Active 02481605 Problem Stress incontinence, male N39.3 Active 465565693 Problem Paranoid schizophrenia, chronic condition F20.0 Active 21239540 Problem Mild intellectual disabilities F70 Active 41851864 Problem Enuresis R32 Active 15833437 Problem High risk medication use Z79.899 Active 690274771 Problem 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 Active 42760482 Problem Seizures R56.9 Active 11154252 Problem Unsteady gait R26.81 Active 41923035 Problem Severe episode of recurrent major depressive disorder, with psychotic features F33.3 Active 25692762 Problem Constipation, unspecified constipation type K59.00 Active 37772122 Problem Dysphagia, unspecified type R13.10 Active 32838685 ALLERGIES No Information ENCOUNTERS Encounter Location Date Diagnosis [facility] [id number] [place] [address] Jun, [facility] [id number] [place] [address] Jun, Paranoid schizophrenia, chronic condition F20.0 ; 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 and Mild intellectual disabilities F70 [facility] [id number] [place] [id number] May, Dental examination Z01.20 [facility] [id number] [place] [address] Mar, Paranoid schizophrenia, chronic condition F20.0 and Mild intellectual disabilities F70 [facility] [address], [place] [address] Mar, Paranoid schizophrenia, chronic condition F20.0 ; High risk medication use Z79.899 ; Mild intellectual disabilities F70 and Anxiety F41.9 [facility] [address], [place] [address] Feb, [facility] [id number] [place] [address] Nov, Paranoid schizophrenia, chronic condition F20.0 ; Mild intellectual disabilities F70 ; Enuresis R32 ; Dysphagia, unspecified type R13.10 and High risk medication use Z79.899 [place] [id number] [place] [address] Oct, [place] [id number] [place] [address] Oct, [facility] [id number] [place] [address] Oct, Paranoid schizophrenia, chronic condition F20.0 ; Enuresis R32 ; Mild intellectual disabilities F70 ; High risk medication use Z79.899 and Dysphagia, unspecified type R13.10 [place] [address], [place] [address] July, Paranoid schizophrenia, chronic condition F20.0 and Mild intellectual disabilities F70 [facility] [address] [address] Jun, Paranoid schizophrenia, chronic condition F20.0 [facility] [id number] [place] [address] May, [facility] [id number] [place] [address] Apr, Paranoid schizophrenia, chronic condition F20.0 ; Mild intellectual disabilities F70 and High risk medication use Z79.899 [place] [id number] [place] [address] 08 Apr, 2017 [facility] [id number] [place] [address] Mar, [facility] [id number] [place] [address] Mar, [facility] [id number] [place] [address] Mar, Contusion of nose, initial encounter S00.33XA [facility] [id number] [place] [address] Mar, Paranoid schizophrenia, chronic condition F20.0 ; Severe episode of recurrent major depressive disorder, with psychotic features F33.3 and Mild intellectual disabilities F70 [facility] [place] [id number] [place] [address] Mar, Constipation, unspecified constipation type K59.00 and Abrasion of right ear, initial encounter S00.411A [place] [id number] [place] [address] Mar, [facility] [id number] [place] [id number] Feb, Encounter for dental examination and cleaning without abnormal findings Z01.20 [place] [id number] [place] [address] Feb, [place] [id number] [place] [address] Feb, Paranoid schizophrenia, chronic condition F20.0 ; Mild intellectual disabilities F70 and High risk medication use Z79.899 [place] [id number] [place] [address] Jan, [facility] [id number] [place] [address] Jan, Unsteady gait R26.81 [place] [address] [address] Dec, Encounter for immunization Z23 [facility] [address] [address] Nov, [facility] [address], [place] [address] Oct, Paranoid schizophrenia, chronic condition F20.0 ; Mild intellectual disabilities F70 and High risk medication use Z79.899 [facility] [address], [place] [address] Sep, [facility] [address] [place] [address] July, [facility] [address], [place] [address] Jun, High risk medication use Z79.899 [facility] [address] [address] Apr, [facility] [address], [place] [address] Apr, Paranoid schizophrenia, chronic condition F20.0 ; Mild intellectual disabilities F70 and High risk medication use Z79.899 [facility] [address], [place] [address] Apr, [facility] [address], [place] [address] Feb, [facility] [address], [place] [address] Jan, [facility] [address] [address] Jan, [facility] [address], [place] [address] Jan, Paranoid schizophrenia, chronic condition F20.0 [facility] [address], [place] [address] Dec, Paranoid schizophrenia, chronic condition F20.0 ; Mild intellectual disabilities F70 and High risk medication use Z79.899 [facility] [address], [place] [address] Dec, [facility] [address], [place] [address] Nov, Paranoid schizophrenia, chronic condition F20.0 ; Mild intellectual disabilities F70 and High risk medication use Z79.899 [facility] [address], [place] [address] Oct, [facility] [id number] [place] [address] Oct, [facility] [id number] [place] [address] Oct, [facility] [id number] [place] [address] Oct, [facility] [id number] [place] [address] Aug, [facility] [address] [place] [address] Jun, Paranoid schizophrenia, chronic condition F20.0 ; High risk medication use Z79.899 and Mild intellectual disabilities F70 [facility] [address], [place] [address] Apr, High risk medication use Z79.899 ; Paranoid schizophrenia, chronic condition F20.0 and Mild intellectual disabilities F70 [facility] [address] [id number] 17 Apr, 2015 Encounter for dental examination Z01.20 [facility] [address], [place] [address] Apr, [facility] [id number] [place] [address] Mar, Paranoid schizophrenia, chronic condition F20.0 ; Mildly mentally retarded F70 and High risk medication use Z79.899 [facility] [address] [address] Feb, Paranoid schizophrenia F20.0 [facility] [address] [address] Dec, [facility] [id number] [place] [address] Dec, Paranoid schizophrenia, chronic condition F20.0 and Mild mental retardation F70 [facility] [id number] [place] [address] Dec, [facility] [address] [address] Dec, [facility] [id number] [place] [address] Dec, [facility] [id number] [place] [address] Dec, High risk medication use Z79.899 and Hyperlipemia E78.5 [facility] [address], [place] [address] Nov, [facility] [address], [place] [address] Sep, [facility] [address], [place] [address] Sep, Paranoid schizophrenia, chronic condition 295.32 and Mild mental retardation 317 [facility] [id number] [place] [address] 14 Jun, 2014 [facility] [address], [place] [address] Jun, [facility] [id number] [place] [address] Apr, 2014 [facility] [place] [facility] [address] [id number] [place] [address] Apr, 2014 [facility] [place] [facility] [address] [id number] [place] [address] Apr, 2014 [facility] [place] [facility] [address] [id number] [place] [address] Apr, 2014 [facility] [place] [facility] [address] [id number] [place] [address] Apr, 2014 [facility] [place] [facility] [address] [id number] [place] [address] Apr, [facility] [place] [facility] [address] [id number] [place] [address] Mar, [facility] [place] [facility] [address] [facility] [id number] [place] [address] Mar, [facility] [place] [facility] [address] [id number] [place] [address] Mar, [facility] [place] [facility] [address] [facility] [id number] [place] [address] Mar, [facility] [place] [facility] [address] [facility] [id number] [place] [address] Mar, [facility] [place] [facility] [address] [facility] [id number] [place] [address] Mar, [facility] [place] [facility] [address] [id number] [place] [address] Feb, [facility] [place] [facility] [address] [id number] [place] [address] Feb, [facility] [place] [facility] [address] [id number] [place] [address] Jan, [facility] [place] [facility] [address] [facility] [id number] [place] [address] Jan, [facility] [place] [facility] [address] [id number] [place] [address] Jan, [facility] [place] [facility] [address] [id number] [place] [address] Jan, [facility] [place] [facility] [address] [id number] [place] [address] Jan, [facility] [place] [facility] [address] [id number] [place] [address] Jan, [facility] [place] [facility] [address] [id number] [place] [address] Jan, [facility] [place] [facility] [address] [id number] [place] [address] Dec, [facility] [place] [facility] [address] [id number] [place] [address] Dec, [facility] [place] [facility] [address] [id number] [place] [address] Dec, [facility] [place] [facility] [address] [id number] [place] [address] Dec, [facility] [place] [facility] [address] [id number] [place] [address] Dec, [facility] [place] [facility] [address] [id number] [place] [address] Dec, [facility] [place] [facility] [address] [id number] [place] [address] Dec, [facility] [place] [facility] [address] [id number] [place] [address] Dec, [facility] [place] [facility] [address] [id number] [place] [address] Nov, [facility] [place] [facility] [address] [id number] [place] [address] 17 Nov, 2013 [facility] [place] [facility] [address] [id number] [place] [address] Nov, [facility] [place] [facility] [address] [id number] [place] [address] Nov, [facility] [place] [facility] [address] [id number] [place] [address] Oct, [facility] [place] [facility] [address] [id number] [place] [address] Oct, [facility] [place] [facility] [address] [id number] [place] [address] Oct, [facility] [place] [facility] [address] [id number] [place] [address] Oct, [facility] [place] [facility] [address] [id number] [place] [address] Oct, [facility] [place] [facility] [address] [id number] [place] [address] Oct, [facility] [place] [facility] [address] [id number] [place] [address] Sep, [facility] [place] [facility] [address] [id number] [place] [address] Sep, [facility] [place] [facility] [address] [id number] [place] [address] Sep, [facility] [place] [facility] [address] [id number] [place] [address] Sep, [facility] [place] [facility] [address] [id number] [place] [address] Sep, [facility] [place] [facility] [address] [id number] [place] [address] Sep, [facility] [place] [facility] [address] [id number] [place] [address] Sep, [facility] [place] [facility] [address] [id number] [place] [address] Sep, [facility] [place] [facility] [address] [id number] [place] [address] Sep, [facility] [place] [facility] [address] [id number] [place] [address] Sep, [facility] [place] [facility] [address] [id number] [place] [address] Aug, [facility] [place] [facility] [address] [id number] [place] [address] Aug, [facility] [place] [facility] [address] [id number] [place] [address] Aug, [facility] [place] [facility] [address] [id number] [place] [address] Aug, [facility] [place] [facility] [address] [id number] [place] [address] Aug, [facility] [place] [facility] [address] [id number] [place] [address] Aug, [facility] [place] [facility] [address] [id number] [place] [address] Aug, [facility] [place] [facility] [address] [id number] [place] [address] Aug, [facility] [place] [facility] [address] [id number] [place] [address] Aug, [facility] [place] [facility] [address] [id number] [place] [address] Aug, [facility] [place] [facility] [address] [id number] [place] [address] July, [facility] [place] [facility] [address] [id number] [place] [address] July, [facility] [place] [facility] [address] [id number] [place] [address] July, [facility] [place] [facility] [address] [id number] [place] [address] July, [facility] [place] [facility] [address] [id number] [place] [address] July, [facility] [place] [facility] [address] [id number] [place] [address] July, [facility] [place] [facility] [address] [id number] [place] [address] July, [facility] [place] [facility] [address] [id number] [place] [address] July, [facility] [place] [facility] [address] [id number] [place] [address] Jun, [facility] [place] [facility] [address] [id number] [place] [address] Jun, [facility] [place] [facility] [address] [id number] [place] [address] Jun, [facility] [place] [facility] [address] [id number] [place] [address] Jun, [facility] [place] [facility] [address] [id number] [place] [address] May, [facility] [place] [facility] [address] [id number] [place] [address] May, [facility] [place] [facility] [address] [id number] [place] [address] May, [facility] [place] [facility] [address] [id number] [place] [address] May, [facility] [place] [facility] [address] [id number] [place] [address] May, [facility] [place] [facility] [address] [id number] [place] [address] May, [facility] [place] [facility] [address] [id number] [place] [address] 28 Apr, 2013 [facility] [place] [facility] [address] [id number] [place] [address] Apr, [facility] [address] [id number] [place] [address] Apr, [facility] [place] [facility] [address] [id number] [place] [address] Apr, [facility] [place] [facility] [address] [id number] [place] [address] Apr, [facility] [place] [facility] [address] [id number] [place] [address] Apr, [facility] [place] [facility] [address] [id number] [place] [address] Apr, [facility] [place] [facility] [address] [id number] [place] [address] Apr, [facility] [place] [facility] [address] [id number] [place] [address] Apr, [facility] [place] [facility] [address] [id number] [place] [address] Apr, [facility] [place] [facility] [address] [id number] [place] [address] Mar, [facility] [place] [facility] [address] [id number] [place] [address] Mar, [facility] [place] [facility] [address] [id number] [place] [address] Mar, [facility] [place] [facility] [address] [id number] [place] [address] Mar, [facility] [place] [facility] [address] [id number] [place] [address] Mar, [facility] [place] [facility] [address] [id number] [place] [address] Mar, [facility] [place] [facility] [address] [id number] [place] [address] 16 Mar, 2013 [facility] [place] [facility] [address] [id number] [place] [address] 16 Mar, 2013 [facility] [address] [id number] [place] [address] Feb, [facility] [address] [id number] [place] [address] Feb, [facility] [place] [facility] [address] [id number] [place] [address] Feb, [facility] [address] [id number] [place] [address] Feb, [facility] [address] [id number] [place] [address] Feb, [facility] [address] [id number] [place] [address] Feb, [facility] [address] [id number] [place] [address] Feb, [facility] [address] [id number] [place] [address] Feb, [facility] [address] [id number] [place] [address] Feb, [facility] [address] [id number] [place] [address] Feb, [facility] [place] [facility] [address] [id number], [place] [address] Jan, [facility] [place] [facility] [address] [id number] [place] [address] Jan, [facility] [place] [facility] [address] [id number] [place] [address] Jan, [facility] [place] [facility] [address] [id number], [place] [address] Jan, [facility] [place] [facility] [address] [id number], [place] [address] 18 Jan, 2013 [facility] [place] [facility] [address] [id number] [place] [address] 15 Jan, 2013 [facility] [place] [facility] [address] [id number], [place] [address] 15 Jan, 2013 [facility] [place] [facility] [address] [id number] [place] [address] 14 Jan, 2013 [facility] [place] [facility] [address] [id number] [place] [address] 14 Jan, 2013 [facility] [place] [facility] [address] [id number] [place] [address] Jan, [facility] [place] [facility] [address] [id number] [place] [address] Jan, [facility] [place] [facility] [address] [id number] [place] [address] Jan, [facility] [place] [facility] [address] [id number] [place] [address] Jan, [facility] [place] [facility] [address] [id number] [place] [address] Dec, [facility] [place] [facility] [address] [id number] [place] [address] Dec, [facility] [place] [facility] [address] [id number], [place] [address] Dec, [facility] [place] [facility] [address] [id number], [place] [address] Dec, [facility] [place] [facility] [address] [id number], [place] [address] 27 Nov, 2012 [facility] [place] [facility] [address] [id number] [place] [address] 24 Sep2012 [facility] [place] [facility] [address] [id number] [place] [address] 13 Nov, 2012 [facility] [place] [facility] [address] [id number] [place] [address] Oct, [facility] [place] [facility] [address] [id number] [place] [address] Oct, [facility] [place] [facility] [address] [id number] [place] [address] Oct, [facility] [place] [facility] [address] [id number] [place] [address] Oct, [facility] [place] [facility] [address] [id number] [place] [address] Oct, [facility] [place] [facility] [address] [id number] [place] [address] Oct, [facility] [place] [facility] [address] [id number] [place] [address] Sep, [facility] [place] [facility] [address] [id number] [place] [address] Sep, [facility] [place] [facility] [address] [id number] [place] [address] Sep, [facility] [place] [facility] [address] [id number] [place] [address] Sep, [facility] [place] [facility] [address] [id number] [place] [address] Sep, [facility] [place] [facility] [address] [id number] [place] [address] Sep, [facility] [place] [facility] [address] [id number] [place] [address] Sep, [facility] [place] [facility] [address] [id number] [place] [address] Sep, [facility] [place] [facility] [address] [id number] [place] [address] Sep, [facility] [place] [facility] [address] [id number] [place] [address] Aug, [facility] [address] [id number] [place] [address] Aug, [facility] [place] [facility] [address] [id number] [place] [address] 07 Aug, 2012 [facility] [place] [facility] [address] [id number] [place] [address] 06 Aug, 2012 [facility] [place] [facility] [address] [id number] [place] [address] Aug, [facility] [place] [facility] [address] [id number] [place] [address] Aug, [facility] [place] [facility] [address] [id number] [place] [address] Aug, [facility] [place] [facility] [address] [id number] [place] [address] July, [facility] [place] [facility] [address] [id number] [place] [address] July, [facility] [place] [facility] [address] [id number] [place] [address] July, [facility] [place] [facility] [address] [id number] [place] [address] Jun, [facility] [place] [facility] [address] [id number] [place] [address] Jun, [facility] [place] [facility] [address] [id number], [place] [address] 05 Jun, 2012 [facility] [place] [facility] [address] [id number] [place] [address] Jun, [facility] [place] [facility] [address] [id number] [place] [address] 29 May, 2012 [facility] [place] [facility] [address] [id number] [place] [address] 18 May, 2012 [facility] [place] [facility] [address] [id number] [place] [address] 18 May, 2012 [facility] [address] [id number] [place] [address] 15 May, 2012 [facility] [place] [facility] [address] [id number] [place] [address] 14 May, 2012 [facility] [address] [id number] [place] [address] 07 May, 2012 [facility] [place] [facility] [address] [id number] [place] [address] 06 May, 2012 [facility] [address] [id number] [place] [address] 04 May, 2012 [facility] [address] [id number] [place] [address] 18 Apr, 2012 [facility] [address] [id number] [place] [address] 17 Feb, 2012 [facility] [address] [id number] [place] [address] 17 Feb, 2012 [facility] [address] [id number] [place] [address] 17 Feb, 2012 [facility] [address] [id number] [place] [address] 17 Feb, 2012 [facility] [address] [id number] [place] [address] 13 Feb, 2012 [facility] [place] [facility] [address] [id number] [place] [address] 13 Feb, 2012 [facility] [place] [facility] [address] [id number] [place] [address] 12 Feb, 2012 [facility] [place] [facility] [address] [id number] [place] [address] 12 Feb, 2012 [facility] [place] [facility] [address] [id number] [place] [address] 03 Feb, 2012 [facility] [place] [facility] [address] [id number] [place] [address] Feb, [facility] [place] [facility] [address] [id number] [place] [address] Jan, [facility] [place] [facility] [address] [id number] [place] [address] Jan, [facility] [place] [facility] [address] [id number] [place] [address] Jan, [facility] [place] [facility] [address] [id number] [place] [address] Jan, [facility] [place] [facility] [address] [id number] [place] [address] Jan, [facility] [place] [facility] [address] [id number] [place] [address] Jan, [facility] [place] [facility] [address] [id number] [place] [address] Jan, [facility] [place] [facility] [address] [id number] [place] [address] Jan, [facility] [place] [facility] [address] [id number] [place] [address] Dec, [facility] [place] [facility] [address] [id number] [place] [address] Dec, [facility] [place] [facility] [address] [id number] [place] [address] Dec, [facility] [place] [facility] [address] [id number] [place] [address] Dec, [facility] [place] [facility] [address] [id number] [place] [address] Dec, [facility] [place] [facility] [address] [id number] [place] [address] Dec, [facility] [place] [facility] [address] [id number] [place] [address] Dec, [facility] [place] [facility] [address] [id number] [place] [address] 28 Nov, 2011 [facility] [place] [facility] [address] [id number] [place] [address] Nov, [facility] [place] [facility] [address] [id number] [place] [address] Nov, [facility] [place] [facility] [address] [id number] [place] [address] Oct, [facility] [place] [facility] [address] [id number] [place] [address] Oct, [facility] [place] [facility] [address] [id number] [place] [address] Oct, [facility] [place] [facility] [address] [id number] [place] [address] Oct, [facility] [place] [facility] [address] [id number] [place] [address] Sep, [facility] [place] [facility] [address] [id number] [place] [address] Sep, [facility] [place] [facility] [address] [id number] [place] [address] Sep, [facility] [place] [facility] [address] [id number] [place] [address] Aug, [facility] [place] [facility] [address] [id number] [place] [address] Aug, [facility] [place] [facility] [address] [id number] [place] [address] July, [facility] [place] [facility] [address] [id number] [place] [address] July, [facility] [place] [facility] [address] [id number] [place] [address] July, [facility] [place] [facility] [address] [id number] [place] [address] Jun, [facility] [address] [id number] [place] [address] Jun, [facility] [place] [facility] [address] [id number] [place] [address] May, [facility] [address] [id number] [place] [address] Apr, [facility] [place] [facility] [address] [id number] [place] [address] Apr, [facility] [address] [id number] [place] [address] Apr, [facility] [address] [id number] [place] [address] Mar, [facility] [address] [id number] [place] [address] Mar, [facility] [address] [id number] [place] [address] Mar, [facility] [address] [id number] [place] [address] Mar, [facility] [address] [id number] [place] [address] Feb, [facility] [place] [facility] [address] [id number] [place] [address] Feb, [facility] [address] [id number] [place] [address] Feb, [facility] [place] [facility] [address] [id number] [place] [address] Feb, [facility] [place] [facility] [address] [id number] [place] [address] Jan, [facility] [place] [facility] [address] [id number] [place] [address] Jan, [facility] [place] [facility] [address] [id number] [place] [address] 16 Jan, 2011 [facility] [place] [facility] [address] [id number] [place] [address] 16 Jan, 2011 [facility] [place] [facility] [address] [id number] [place] [address] Jan, [facility] [place] [facility] [address] [id number] [place] [address] Dec, [facility] [place] [facility] [address] [id number] [place] [address] 18 Sep, 2010 [facility] [place] [facility] [address] [id number] [place] [address] 31 Feb, 2010 [facility] [place] [facility] [address] [id number] [place] [address] 30 Feb, 2010 [facility] [place] [facility] [address] [id number] [place] [address] Feb, [facility] [place] [facility] [address] [id number] [place] [address] 29 Dec, 2009 [facility] [place] [facility] [address] [id number] [place] [address] 19 Dec, 2009 [facility] [place] [facility] [address] [id number] [place] [address] Oct, [facility] [place] [facility] [address] [id number], [place] [address] 15 Aug, 2009 [facility] [place] [facility] [address] [id number] [place] [address] 15 Feb, 2009 [facility] [place] [facility] [address] [id number] [place] [address] 15 Feb, 2009 [facility] [place] [facility] [address] [id number] [place] [address] 30 Jan, 2009 [facility] [place] [facility] [address] [facility] [id number] [place] [address] Jan, [facility] [address] [facility] [id number], [place] [address] Dec, [facility] [address] [facility] [id number], [place] [address] Dec, [facility] [address] [facility] [id number], [place] [address] Nov, IMMUNIZATIONS No Known Immunizations SOCIAL HISTORY Never Assessed REASON FOR VISIT EMR-[facility] PLAN OF CARE VITAL SIGNS MEDICATIONS Unknown [...]
--- OUTSIDE RECORDS SUMMARY | 2018-09-29 17:39 | XMS REPORT ---
Author Author CLAUS MCDONALD [facility] Address [address] [place] [address] Care Team Providers Care Clinical Training Coordinator Name Role Phone HARRY CLAUS Unavailable PROBLEMS Type Condition ICD9-CM Code DPA99-NS Code Onset Dates Condition Status SNOMED Code Problem High risk medication use Z79.899 Active 558800743 Problem Paranoid schizophrenia, chronic condition F20.0 Active 90951415 Problem Stress incontinence, male N39.3 Active 321984261 Problem Enuresis R32 Active 79072965 Problem Dysphagia, unspecified type R13.10 Active 78476852 Problem Unsteady gait R26.81 Active 79230152 Problem Mild intellectual disabilities F70 Active 39184322 Problem Constipation, unspecified constipation type K59.00 Active 60947009 Problem Severe episode of recurrent major depressive disorder, with psychotic features F33.3 Active 53795866 Problem Paranoid schizophrenia, chronic condition 295.32 Active 06443515 Problem Mildly mentally retarded F70 Active 40158707 Problem Hyperlipemia E78.5 Active 01638459 Problem Intermittent explosive disorder 312.34 Active 71988743 Problem Seizures R56.9 Active 57072417 ALLERGIES Substance Reaction Event Type Date Status Prozac Unknown Drug Allergy Nov, Active ENCOUNTERS Encounter Location Date Diagnosis [facility] [id number], [place] [address] Mar, [facility] [id number], [place] [address] Nov, Paranoid schizophrenia, chronic condition F20.0 ; Mild intellectual disabilities F70 ; Enuresis R32 ; Dysphagia, unspecified type R13.10 and High risk medication use Z79.899 [facility] [id number], [place] [address] Oct, [facility] [id number] [place] [address] Oct, [place] [id number] [place] [address] Oct, Paranoid schizophrenia, chronic condition F20.0 ; Enuresis R32 ; Mild intellectual disabilities F70 ; High risk medication use Z79.899 and Dysphagia, unspecified type R13.10 [place] [address] [address] July, Paranoid schizophrenia, chronic condition F20.0 and Mild intellectual disabilities F70 [place] [id number] [place] [address] Jun, Paranoid schizophrenia, chronic condition F20.0 [place] [id number] [place] [address] May, [place] [address] [address] Apr, Paranoid schizophrenia, chronic condition F20.0 ; Mild intellectual disabilities F70 and High risk medication use Z79.899 [place] [id number] [place] [address] Apr, [place] [id number] [place] [address] Mar, [place] [id number] [place] [address] Mar, [facility] [id number] [place] [address] Mar, Contusion of nose, initial encounter S00.33XA [place] [address] [address] Mar, Paranoid schizophrenia, chronic condition F20.0 ; Severe episode of recurrent major depressive disorder, with psychotic features F33.3 and Mild intellectual disabilities F70 [facility] [id number] [place] [address] Mar, Constipation, unspecified constipation type K59.00 and Abrasion of right ear, initial encounter S00.411A [facility] [id number] [place] [address] Mar, [facility] [id number] [place] [id number] Feb, Encounter for dental examination and cleaning without abnormal findings Z01.20 [facility] [address] [address] Feb, [facility] [address] [address] Feb, Paranoid schizophrenia, chronic condition F20.0 ; Mild intellectual disabilities F70 and High risk medication use Z79.899 [place] [id number] [place] [address] Jan, [facility] [id number] [place] [address] Jan, Unsteady gait R26.81 [facility] [id number] [place] [address] Dec, Encounter for immunization Z23 [facility] [id number] [place] [address] Nov, [facility] [id number] [place] [address] Oct, Paranoid schizophrenia, chronic condition F20.0 ; Mild intellectual disabilities F70 and High risk medication use Z79.899 [facility] [id number] [place] [address] Sep, [facility] [id number] [place] [address] July, [facility] [id number] [place] [address] Jun, High risk medication use Z79.899 [facility] [address], [place] [address] Apr, [facility] [id number], [place] [address] Apr, Paranoid schizophrenia, chronic condition F20.0 ; Mild intellectual disabilities F70 and High risk medication use Z79.899 [facility] [address], [place] [address] Apr, [facility] [address], [place] [address] Feb, [facility] [id number] [place] [address] Jan, [facility] [id number] [place] [address] Jan, [facility] [id number] [place] [address] Jan, Paranoid schizophrenia, chronic condition F20.0 [facility] [id number] [place] [address] Dec, Paranoid schizophrenia, chronic condition F20.0 ; Mild intellectual disabilities F70 and High risk medication use Z79.899 [facility] [address], [place] [address] Dec, [facility] [address], [place] [address] Nov, Paranoid schizophrenia, chronic condition F20.0 ; Mild intellectual disabilities F70 and High risk medication use Z79.899 [facility] [address], [place] [address] Oct, [facility] [address], [place] [address] Oct, [facility] [id number] [address] Oct, [facility] [address] [facility] [id number] [address] Oct, [facility] [id number], [place] [address] Aug, [facility] [address], [place] [address] Jun, Paranoid schizophrenia, chronic condition F20.0 ; High risk medication use Z79.899 and Mild intellectual disabilities F70 [facility] [id number], [place] [address] Apr, High risk medication use Z79.899 ; Paranoid schizophrenia, chronic condition F20.0 and Mild intellectual disabilities F70 [facility] [address] [id number] Apr, Encounter for dental examination Z01.20 [facility] [address], [place] [address] Apr, [facility] [address], [place] [address] Mar, Paranoid schizophrenia, chronic condition F20.0 ; Mildly mentally retarded F70 and High risk medication use Z79.899 [facility] [address], [place] [address] Feb, Paranoid schizophrenia F20.0 [facility] [address], [place] [address] Dec, [facility] [id number], [place] [address] Dec, Paranoid schizophrenia, chronic condition F20.0 and Mild mental retardation F70 [facility] [address] [facility] [id number], [place] [address] Dec, [facility] [address], [place] [address] Dec, [facility] [address], [place] [address] Dec, [facility] [id number] [place] [address] Dec, High risk medication use Z79.899 and Hyperlipemia E78.5 [facility] [id number] [place] [address] Nov, [facility] [id number] [place] [address] Sep, [facility] [id number] [place] [address] Sep, Paranoid schizophrenia, chronic condition 295.32 and Mild mental retardation 317 [facility] [id number] [place] [address] 14 Jun, 2014 [facility] [id number] [place] [address] Jun, [facility] [id number] [place] [address] Apr, [facility] [id number] [place] [address] Apr, [facility] [address], [place] [address] Apr, [facility] [id number] [place] [address] Apr, [facility] [address], [place] [address] Apr, [facility] [id number] [place] [address] Apr, [facility] [address], [place] [address] Mar, [facility] [place] [facility] [id number] [address] Mar, [facility] [place] [facility] [address] [id number] [place] [address] Mar, [facility] [place] [facility] [address] [id number] [place] [address] Mar, [facility] [place] [facility] [address] [id number] [place] [address] Mar, [facility] [place] [facility] [address] [id number] [place] [address] Mar, [facility] [place] [facility] [address] [id number] [place] [address] Feb, [facility] [place] [facility] [address] [id number] [place] [address] Feb, [facility] [place] [facility] [address] [id number] [place] [address] Jan, [facility] [place] [facility] [address] [id number] [place] [address] Jan, [facility] [place] [facility] [address] [id number] [place] [address] Jan, [facility] [place] [facility] [address] [id number] [place] [address] Jan, [facility] [place] [facility] [address] [id number] [place] [address] Jan, [facility] [place] [facility] [address] [id number] [place] [address] Jan, [facility] [place] [facility] [address] [id number] [place] [address] Jan, [facility] [place] [facility] [address] [id number] [place] [address] Dec, [facility] [place] [facility] [address] [id number] [place] [address] Dec, [facility] [place] [facility] [address] [id number] [place] [address] Dec, [facility] [place] [facility] [address] [id number] [place] [address] Dec, [facility] [place] [facility] [address] [id number] [place] [address] Dec, [facility] [place] [facility] [address] [id number] [place] [address] Dec, [facility] [place] [facility] [address] [id number] [place] [address] Dec, [facility] [place] [facility] [address] [id number] [place] [address] Dec, [facility] [place] [facility] [address] [id number] [place] [address] Nov, [facility] [place] [facility] [address] [id number] [place] [address] Nov, [facility] [place] [facility] [address] [id number] [place] [address] 15 Nov, 2013 [facility] [place] [facility] [address] [id number] [place] [address] Nov, [facility] [place] [facility] [address] [id number] [place] [address] Oct, [facility] [place] [facility] [address] [id number] [place] [address] Oct, [facility] [place] [facility] [address] [id number] [place] [address] Oct, [facility] [place] [facility] [address] [id number] [place] [address] Oct, [facility] [place] [facility] [address] [id number] [place] [address] Oct, [facility] [place] [facility] [address] [id number] [place] [address] Oct, [facility] [place] [facility] [address] [id number] [place] [address] Sep, [facility] [place] [facility] [address] [id number] [place] [address] Sep, [facility] [place] [facility] [address] [id number] [place] [address] Sep, [facility] [place] [facility] [address] [id number] [place] [address] Sep, [facility] [place] [facility] [address] [id number] [place] [address] Sep, [facility] [place] [facility] [address] [id number] [place] [address] Sep, [facility] [place] [facility] [address] [id number] [place] [address] Sep, [facility] [place] [facility] [address] [id number] [place] [address] Sep, [facility] [place] [facility] [address] [id number] [place] [address] Sep, [facility] [place] [facility] [address] [id number] [place] [address] Sep, [facility] [place] [facility] [address] [id number] [place] [address] Aug, [facility] [place] [facility] [address] [id number] [place] [address] Aug, [facility] [place] [facility] [address] [id number] [place] [address] Aug, [facility] [place] [facility] [address] [id number] [place] [address] Aug, [facility] [place] [facility] [address] [id number] [place] [address] Aug, [facility] [place] [facility] [address] [id number] [place] [address] Aug, [facility] [place] [facility] [address] [id number] [place] [address] Aug, [facility] [place] [facility] [address] [id number] [place] [address] Aug, [facility] [place] [facility] [address] [id number] [place] [address] Aug, [facility] [place] [facility] [address] [id number] [place] [address] Aug, [facility] [place] [facility] [address] [id number] [place] [address] July, [facility] [place] [facility] [address] [id number] [place] [address] July, [facility] [place] [facility] [address] [id number] [place] [address] July, [facility] [place] [facility] [address] [id number] [place] [address] July, [facility] [place] [facility] [address] [id number] [place] [address] July, [facility] [place] [facility] [address] [id number] [place] [address] July, [facility] [place] [facility] [address] [id number] [place] [address] July, [facility] [place] [facility] [address] [id number] [place] [address] July, [facility] [place] [facility] [address] [id number] [place] [address] Jun, [facility] [place] [facility] [address] [id number] [place] [address] Jun, [facility] [place] [facility] [address] [id number] [place] [address] Jun, [facility] [place] [facility] [address] [id number] [place] [address] Jun, [facility] [place] [facility] [address] [id number] [place] [address] May, [facility] [place] [facility] [address] [facility] [id number] [place] [address] May, [facility] [place] [facility] [address] [facility] [id number] [place] [address] May, [facility] [place] [facility] [address] [facility] [id number] [place] [address] May, [facility] [place] [facility] [address] [facility] [id number] [place] [address] May, [facility] [place] [facility] [address] [facility] [id number] [place] [address] May, [facility] [place] [facility] [address] [facility] [id number] [place] [address] Apr, [facility] [place] [facility] [address] [facility] [id number] [place] [address] Apr, [facility] [place] [facility] [address] [facility] [id number] [place] [address] Apr, [facility] [place] [facility] [address] [facility] [id number], [place] [address] Apr, [facility] [place] [facility] [address] [facility] [id number], [place] [address] Apr, [facility] [place] [facility] [address] [facility] [id number] [place] [address] Apr, [facility] [place] [facility] [address] [facility] [id number], [place] [address] Apr, [facility] [place] [facility] [address] [facility] [id number], [place] [address] Apr, [facility] [place] [facility] [address] [id number] [place] [address] Apr, [facility] [place] [facility] [address] [id number] [place] [address] Apr, [facility] [place] [facility] [address] [id number] [place] [address] Mar, [facility] [place] [facility] [address] [id number] [place] [address] Mar, [facility] [place] [facility] [address] [id number] [place] [address] Mar, [facility] [place] [facility] [address] [id number] [place] [address] Mar, [facility] [place] [facility] [address] [id number] [place] [address] Mar, [facility] [place] [facility] [address] [id number] [place] [address] Mar, [facility] [place] [facility] [address] [id number] [place] [address] Mar, [facility] [place] [facility] [address] [id number] [place] [address] Mar, [facility] [place] [facility] [address] [id number] [place] [address] Feb, [facility] [place] [facility] [address] [id number] [place] [address] Feb, [facility] [place] [facility] [address] [id number] [place] [address] Feb, [facility] [place] [facility] [address] [id number] [place] [address] Feb, [facility] [place] [facility] [address] [id number] [place] [address] 18 Feb, 2013 [facility] [place] [facility] [address] [id number], [place] [address] 18 Feb, 2013 [facility] [place] [facility] [address] [id number] [place] [address] Feb, [facility] [place] [facility] [address] [id number] [place] [address] Feb, [facility] [place] [facility] [address] [facility] [id number] [place] [address] Feb, [facility] [place] [facility] [address] [id number], [place] [address] 05 Feb, 2013 [facility] [place] [facility] [address] [id number] [place] [address] Jan, [facility] [place] [facility] [address] [id number], [place] [address] Jan, [facility] [place] [facility] [address] [id number], [place] [address] Jan, [facility] [place] [facility] [address] [id number], [place] [address] Jan, [facility] [place] [facility] [address] [id number], [place] [address] 18 Jan, 2013 [facility] [place] [facility] [address] [id number], [place] [address] Jan, [facility] [place] [facility] [address] [id number], [place] [address] 15 Jan, 2013 [facility] [place] [facility] [address] [id number], [place] [address] 14 Jan, 2013 [facility] [place] [facility] [address] [id number], [place] [address] 14 Jan, 2013 [facility] [place] [facility] [address] [id number], [place] [address] Jan, [facility] [place] [facility] [address] [id number], [place] [address] Jan, [facility] [place] [facility] [address] [id number] [place] [address] Jan, [facility] [address] [id number] [place] [address] Jan, [facility] [place] [facility] [address] [id number] [place] [address] Dec, [facility] [address] [id number] [place] [address] Dec, [facility] [place] [facility] [address] [id number] [place] [address] Dec, [facility] [place] [facility] [address] [id number] [place] [address] Dec, [facility] [place] [facility] [address] [id number] [place] [address] Nov, [facility] [place] [facility] [address] [id number] [place] [address] Nov, [facility] [place] [facility] [address] [id number] [place] [address] Nov, [facility] [place] [facility] [address] [id number] [place] [address] Oct, [facility] [place] [facility] [address] [id number] [place] [address] Oct, [facility] [place] [facility] [address] [id number] [place] [address] Oct, [facility] [place] [facility] [address] [id number] [place] [address] Oct, [facility] [place] [facility] [address] [id number] [place] [address] Oct, [facility] [place] [facility] [address] [id number] [place] [address] Oct, [facility] [place] [facility] [address] [id number] [place] [address] Sep, [facility] [place] [facility] [address] [id number] [place] [address] Sep, 2012 [facility] [place] [facility] [address] [id number] [place] [address] Sep, [facility] [place] [facility] [address] [id number] [place] [address] Sep, 2012 [facility] [place] [facility] [address] [id number] [place] [address] Sep, 2012 [facility] [place] [facility] [address] [id number] [place] [address] Sep, [facility] [place] [facility] [address] [id number] [place] [address] Sep, [facility] [place] [facility] [address] [id number] [place] [address] Sep, [facility] [place] [facility] [address] [id number] [place] [address] Sep, [facility] [place] [facility] [address] [id number] [place] [address] Aug, [facility] [place] [facility] [address] [id number] [place] [address] Aug, [facility] [place] [facility] [address] [id number] [place] [address] Aug, [facility] [place] [facility] [address] [id number], [place] [address] Aug, [facility] [place] [facility] [address] [id number] [place] [address] Aug, [facility] [place] [facility] [address] [id number] [place] [address] Aug, [facility] [place] [facility] [address] [id number] [place] [address] Aug, [facility] [place] [facility] [address] [id number] [place] [address] July, [facility] [address] [id number] [place] [address] July, [facility] [address] [id number] [place] [address] July, [facility] [address] [id number] [place] [address] Jun, [facility] [address] [id number] [place] [address] 16 Jun, 2012 [facility] [address] [id number] [place] [address] Jun, [facility] [address] [id number] [place] [address] Jun, [facility] [address] [facility] [id number] [place] [address] May, [facility] [address] [id number] [place] [address] May, [facility] [address] [id number] [place] [address] 18 May, 2012 [facility] [address] [facility] [id number] [place] [address] May, [facility] [address] [id number] [place] [address] 14 May, 2012 [facility] [place] [facility] [address] [id number] [place] [address] 07 May, 2012 [facility] [place] [facility] [address] [id number] [place] [address] 06 May, 2012 [facility] [place] [facility] [address] [facility] [id number] [place] [address] 04 May, 2012 [facility] [place] [facility] [address] [facility] [id number] [place] [address] 18 Apr, 2012 [facility] [place] [facility] [address] [id number] [place] [address] 17 Feb, 2012 [facility] [facility] [address] [id number] [place] [address] 17 Feb, 2012 [facility] [place] [facility] [address] [id number] [place] [address] 17 Feb, 2012 [facility] [place] [facility] [address] [id number] [place] [address] 17 Feb, 2012 [facility] [place] [facility] [address] [id number] [place] [address] Feb, [facility] [place] [facility] [address] [id number] [place] [address] 13 Feb, 2012 [facility] [place] [facility] [address] [id number] [place] [address] Feb, [facility] [place] [facility] [address] [id number] [place] [address] Feb, [facility] [place] [facility] [address] [id number] [place] [address] Feb, [facility] [place] [facility] [address] [id number] [place] [address] Feb, [facility] [place] [facility] [address] [id number] [place] [address] Jan, [facility] [place] [facility] [address] [id number] [place] [address] Jan, [facility] [place] [facility] [address] [id number] [place] [address] Jan, [facility] [place] [facility] [address] [id number] [place] [address] Jan, [facility] [place] [facility] [address] [id number] [place] [address] Jan, [facility] [place] [facility] [address] [id number] [place] [address] Jan, [facility] [place] [facility] [address] [id number] [place] [address] Jan, [facility] [place] [facility] [address] [id number] [place] [address] Jan, [facility] [place] [facility] [address] [id number] [place] [address] Dec, [facility] [place] [facility] [address] [id number] [place] [address] Dec, [facility] [place] [facility] [address] [id number] [place] [address] Dec, [facility] [place] [address] [id number] [place] [address] Dec, [facility] [place] [facility] [address] [id number] [place] [address] Dec, [facility] [address] [id number] [place] [address] Dec, [facility] [address] [id number] [place] [address] Dec, [facility] [address] [id number] [place] [address] Nov, [facility] [address] [id number], [place] [address] Nov, [facility] [address] [id number], [place] [address] Nov, [facility] [address] [id number] [place] [address] Oct, [facility] [address] [id number] [place] [address] Oct, [facility] [address] [id number] [place] [address] Oct, [facility] [place] [facility] [address] [id number] [place] [address] Oct, [facility] [address] [id number] [place] [address] Sep, [facility] [address] [id number] [place] [address] Sep, [facility] [address] [id number] [place] [address] Sep, [facility] [address] [id number] [place] [address] Aug, [facility] [address] [id number] [place] [address] Aug, [facility] [address] [id number] [place] [address] July, [facility] [address] [id number] [place] [address] July, [facility] [address] [id number] [place] [address] July, [facility] [place] [address] [id number] [place] [address] Jun, [facility] [address] [id number] [place] [address] Jun, [facility] [address] [id number] [place] [address] May, [facility] [address] [id number] [place] [address] Apr, [facility] [address] [id number] [place] [address] Apr, [facility] [address] [id number] [place] [address] Apr, [facility] [address] [id number] [place] [address] Mar, [facility] [address] [id number] [place] [address] Mar, [facility] [address] [id number] [place] [address] Mar, [facility] [address] [id number] [place] [address] Mar, [facility] [address] [id number] [place] [address] Feb, [facility] [address] [id number] [place] [address] Feb, [facility] [address] [id number] [place] [address] Feb, [facility] [address] [id number] [place] [address] Feb, [facility] [address] [id number] [place] [address] Jan, [facility] [address] [id number] [place] [address] Jan, [facility] [address] [id number], [place] [address] Jan, [facility] [address] [id number], [place] [address] Jan, [facility] [address] [id number], [place] [address] Jan, [facility] [address] [id number] [place] [address] Dec, [facility] [address] [id number], [place] [address] Sep, [facility] [address] [id number], [place] [address] Feb, [facility] [address] [id number], [place] [address] 30 Feb, 2010 [facility] [id number], [place] [address] Feb, [facility] [id number], [place] [address] Dec, [facility] [id number], [place] [address] Dec, [facility] [id number] [place] [address] Oct, [facility] [id number] [place] [address] Aug, [facility] [id number] [place] [address] Feb, [facility] [id number] [place] [address] Feb, [facility] [id number] [place] [address] Jan, [facility] [id number] [place] [address] Jan, [facility] [address], [place] [address] Dec, [facility] [address] [place] [address] Dec, [facility] [id number], [place] [address] Nov, IMMUNIZATIONS No Known Immunizations SOCIAL HISTORY Never Assessed REASON FOR VISIT f/u Julien PLAN OF CARE Activity Details Follow Up 4 Months Reason: VITAL SIGNS Height 68 in 2017-11-17 Weight 188.8 lbs 2017-11-17 Heart Rate 108 bpm 2017-11-17 Respiratory Rate 20 2017-11-17 BMI 28.70 kg/m2 2017-11-17 Blood pressure systolic 132 mmHg 2017-11-17 Blood pressure diastolic 82 mmHg 2017-11-17 MEDICATIONS Medication Instructions Dosage Frequency Start Date End Date Duration Status Colace 100 MG Orally Once a day 1 capsule as needed 24h Active Folic Acid 1 MG Orally Once a day 1 tablet 24h Active Oxybutynin Chloride 5 MG Orally Twice a day 1 tablet 12h Active Metoprolol Tartrate 25 MG Orally Twice a day 1 tablet with food 12h Active Ranitidine 1 tab Active Olanzapine 10 mg Orally Once a day in the morning 1 tablet Active Tylenol 325 MG Orally every 4 hrs 1 tablet as needed 4h Active Levetiracetam 500 MG Orally Twice a day 1 tablet 12h Active DOK 100 mg Orally 2 times a day 1 capsule as needed 12h Active Tramadol HCl 50 mg Orally once a day for back pain 1 tablet as needed Active Loratadine 10 MG Active Meloxicam 15 MG Orally Once a day 1 tablet 24h Active Divalproex Sodium 125 MG Orally 4 times a day for seizures 4 capsules Active QUEtiapine Fumarate ER 400 mg Orally Once a day 1 tablet in the evening four hours before bedtime 24h Oct, Active Atorvastatin Calcium 20 MG Active Trintellix 10 mg Orally Once a day for depression 1 tablet Mar, Active RESULTS No Results PROCEDURES Procedure Date Ordered Result Body Site [facility] VISIT ESTABLISHED PATIENT Nov 17, 2017 INSTRUCTIONS MEDICATIONS ADMINISTERED No Known Medications MEDICAL (GENERAL) HISTORY Type Description Date Medical History High Blood Pressure Medical History Fainting/Seizures/Epilepsy Medical History Moderate MR Medical History GERD Medical History Hyperlipidemia Medical History Paranoid Schizophrenia Medical History incontenance Medical History 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
--- OUTSIDE RECORDS SUMMARY | 2018-09-29 17:40 | XMS REPORT ---
Author Author MERT [facility] Address [address] [place] [address] Care Team Providers Care Snailer Name Role Phone SAMANTHA MERT Unavailable PROBLEMS Type Condition ICD9-CM Code ASS54-LD Code Onset Dates Condition Status SNOMED Code Problem High risk medication use Z79.899 Active 218983508 Problem Paranoid schizophrenia, chronic condition F20.0 Active 67168126 Problem Stress incontinence, male N39.3 Active 919658374 Problem Enuresis R32 Active 98494424 Problem Dysphagia, unspecified type R13.10 Active 29467637 Problem Unsteady gait R26.81 Active 17654641 Problem Mild intellectual disabilities F70 Active 52146930 Problem Constipation, unspecified constipation type K59.00 Active 02462018 Problem Severe episode of recurrent major depressive disorder, with psychotic features F33.3 Active 74253905 Problem Paranoid schizophrenia, chronic condition 295.32 Active 82343603 Problem Mildly mentally retarded F70 Active 56362357 Problem Hyperlipemia E78.5 Active 21652924 Problem Intermittent explosive disorder 312.34 Active 65473688 Problem Seizures R56.9 Active 50001294 ALLERGIES No Information ENCOUNTERS Encounter Location Date Diagnosis [place] [id number] [place] [address] Mar, [facility] [id number] [place] [address] Nov, Paranoid schizophrenia, chronic condition F20.0 ; Mild intellectual disabilities F70 ; Enuresis R32 ; Dysphagia, unspecified type R13.10 and High risk medication use Z79.899 [facility] [address] [place] [address] Oct, [facility] [id number] [place] [address] Oct, [facility] [id number] [place] [address] Oct, Paranoid schizophrenia, chronic condition F20.0 ; Enuresis R32 ; Mild intellectual disabilities F70 ; High risk medication use Z79.899 and Dysphagia, unspecified type R13.10 [facility] [id number] [place] [address] July, Paranoid schizophrenia, chronic condition F20.0 and Mild intellectual disabilities F70 [place] [id number] [place] [address] Jun, Paranoid schizophrenia, chronic condition F20.0 [place] [address] [address] May, [place] [id number] [place] [address] Apr, Paranoid schizophrenia, chronic condition F20.0 ; Mild intellectual disabilities F70 and High risk medication use Z79.899 [place] [id number] [place] [address] Apr, [place] [id number] [place] [address] Mar, [place] [id number] [place] [address] Mar, [facility] [id number] [place] [address] Mar, Contusion of nose, initial encounter S00.33XA [place] [id number] [place] [address] Mar, Paranoid schizophrenia, chronic condition F20.0 ; Severe episode of recurrent major depressive disorder, with psychotic features F33.3 and Mild intellectual disabilities F70 [facility] [id number] [place] [address] Mar, Constipation, unspecified constipation type K59.00 and Abrasion of right ear, initial encounter S00.411A [facility] [id number] [place] [address] Mar, [facility] [address] [id number] Feb, Encounter for dental examination and cleaning without abnormal findings Z01.20 [facility] [id number] [place] [address] Feb, [facility] [id number] [place] [address] Feb, Paranoid schizophrenia, chronic condition F20.0 ; Mild intellectual disabilities F70 and High risk medication use Z79.899 [facility] [id number] [place] [address] Jan, [facility] [id number] [place] [address] Jan, Unsteady gait R26.81 [facility] [id number] [place] [address] Dec, Encounter for immunization Z23 [facility] [id number] [place] [address] Nov, [facility] [id number] [place] [address] Oct, Paranoid schizophrenia, chronic condition F20.0 ; Mild intellectual disabilities F70 and High risk medication use Z79.899 [facility] [id number] [place] [address] Sep, [facility] [id number] [place] [address] July, [facility] [id number] [place] [address] Jun, High risk medication use Z79.899 [facility] [address] [place] [address] Apr, [facility] [address] [address] Apr, Paranoid schizophrenia, chronic condition F20.0 ; Mild intellectual disabilities F70 and High risk medication use Z79.899 [facility] [address] [address] Apr, [facility] [address] [address] Feb, [facility] [address] [address] Jan, [facility] [address] [address] Jan, [facility] [address] [address] Jan, Paranoid schizophrenia, chronic condition F20.0 [facility] [address] [address] Dec, Paranoid schizophrenia, chronic condition F20.0 ; Mild intellectual disabilities F70 and High risk medication use Z79.899 [facility] [address] [address] Dec, [facility] [address] [address] Nov, Paranoid schizophrenia, chronic condition F20.0 ; Mild intellectual disabilities F70 and High risk medication use Z79.899 [facility] [address] [address] Oct, [facility] [address] [address] Oct, [facility] [address] [address] Oct, [facility] [address] [facility] [id number] [address] Oct, [facility] [address] [address] Aug, [facility] [address] [address] Jun, Paranoid schizophrenia, chronic condition F20.0 ; High risk medication use Z79.899 and Mild intellectual disabilities F70 [facility] [address] [address] Apr, High risk medication use Z79.899 ; Paranoid schizophrenia, chronic condition F20.0 and Mild intellectual disabilities F70 [facility] [address] [address] Apr, Encounter for dental examination Z01.20 [facility] [address] [address] Apr, [facility] [address] [address] Mar, Paranoid schizophrenia, chronic condition F20.0 ; Mildly mentally retarded F70 and High risk medication use Z79.899 [facility] [address] [address] Feb, Paranoid schizophrenia F20.0 [facility] [address] [address] Dec, [facility] [address] [address] Dec, Paranoid schizophrenia, chronic condition F20.0 and Mild mental retardation F70 [facility] [id number] [address] Dec, [facility] [address] [address] Dec, [facility] [address] [address] Dec, [facility] [address] [place] [address] Dec, High risk medication use Z79.899 and Hyperlipemia E78.5 [facility] [address] [address] Nov, [facility] [id number] [place] [address] Sep, [facility] [id number] [place] [address] Sep, Paranoid schizophrenia, chronic condition 295.32 and Mild mental retardation 317 [facility] [address] [address] 14 Jun, 2014 [facility] [id number] [place] [address] Jun, [facility] [address] [address] Apr, [facility] [id number] [place] [address] Apr, [facility] [address] [address] Apr, [facility] [id number] [place] [address] Apr, [facility] [address] [address] Apr, [facility] [id number] [place] [address] Apr, [facility] [address] [address] Mar, [facility] [id number] [place] [address] Mar, [facility] [place] [facility] [address] [id number] [place] [address] Mar, [facility] [place] [facility] [address] [id number] [place] [address] Mar, [facility] [place] [facility] [address] [id number] [place] [address] Mar, [facility] [place] [facility] [address] [id number] [place] [address] Mar, [facility] [place] [facility] [address] [id number] [place] [address] Feb, [facility] [place] [facility] [address] [id number] [place] [address] Feb, [facility] [place] [facility] [address] [id number] [place] [address] Jan, [facility] [place] [facility] [address] [id number] [place] [address] Jan, [facility] [place] [facility] [address] [id number] [place] [address] Jan, [facility] [place] [facility] [address] [id number] [place] [address] Jan, [facility] [place] [facility] [address] [id number] [address] Jan, [facility] [place] [facility] [address] [id number] [address] Jan, [facility] [place] [facility] [address] [id number] [place] [address] Jan, [facility] [place] [facility] [address] [id number] [address] Dec, [facility] [place] [facility] [address] [id number] [place] [address] Dec, [facility] [place] [facility] [address] [id number] [place] [address] Dec, [facility] [place] [facility] [address] [id number] [place] [address] Dec, [facility] [place] [facility] [address] [id number] [place] [address] Dec, [facility] [place] [facility] [address] [id number] [place] [address] Dec, [facility] [place] [facility] [address] [id number] [place] [address] Dec, [facility] [place] [facility] [address] [id number] [place] [address] Dec, [facility] [place] [facility] [address] [id number] [place] [address] Nov, [facility] [place] [facility] [address] [id number] [place] [address] Nov, [facility] [place] [facility] [address] [id number] [place] [address] Nov, [facility] [place] [facility] [address] [id number] [place] [address] Nov, [facility] [place] [facility] [address] [id number] [place] [address] Oct, [facility] [place] [facility] [address] [id number] [place] [address] Oct, [facility] [place] [facility] [address] [id number] [place] [address] Oct, [facility] [place] [facility] [address] [id number] [place] [address] Oct, [facility] [place] [facility] [address] [id number] [place] [address] Oct, [facility] [place] [facility] [address] [id number] [place] [address] Oct, [facility] [place] [facility] [address] [id number] [place] [address] Sep, [facility] [place] [facility] [address] [id number] [place] [address] Sep, [facility] [place] [facility] [address] [id number] [place] [address] Sep, [facility] [place] [facility] [address] [id number] [place] [address] Sep, [facility] [place] [facility] [address] [id number] [place] [address] Sep, [facility] [place] [facility] [address] [id number] [place] [address] Sep, [facility] [place] [facility] [address] [id number] [place] [address] Sep, [facility] [place] [facility] [address] [id number] [place] [address] Sep, [facility] [place] [facility] [address] [id number] [place] [address] Sep, [facility] [place] [facility] [address] [id number] [place] [address] Sep, [facility] [place] [facility] [address] [id number] [place] [address] Aug, [facility] [place] [facility] [address] [id number] [place] [address] Aug, [facility] [place] [facility] [address] [id number] [place] [address] Aug, [facility] [place] [facility] [address] [id number] [place] [address] Aug, [facility] [place] [facility] [address] [id number] [place] [address] Aug, [facility] [place] [facility] [address] [id number] [place] [address] Aug, [facility] [place] [facility] [address] [id number] [place] [address] Aug, [facility] [place] [facility] [address] [id number] [place] [address] Aug, [facility] [place] [facility] [address] [id number] [place] [address] Aug, [facility] [place] [facility] [address] [id number] [place] [address] Aug, [facility] [place] [facility] [address] [id number] [place] [address] July, [facility] [place] [facility] [address] [id number] [place] [address] July, [facility] [place] [facility] [address] [id number] [place] [address] July, [facility] [place] [facility] [address] [id number] [place] [address] July, [facility] [place] [facility] [address] [id number] [place] [address] July, [facility] [place] [facility] [address] [id number] [place] [address] July, [facility] [place] [facility] [address] [id number] [place] [address] July, [facility] [place] [facility] [address] [id number] [place] [address] July, [facility] [place] [facility] [address] [id number] [place] [address] Jun, [facility] [place] [facility] [address] [id number] [place] [address] Jun, [facility] [place] [facility] [address] [id number] [place] [address] Jun, [facility] [place] [facility] [address] [id number] [place] [address] 11 Jun, 2013 [facility] [place] [facility] [address] [id number] [place] [address] May, [facility] [place] [facility] [address] [id number] [place] [address] May, [facility] [place] [facility] [address] [id number] [place] [address] May, [facility] [place] [facility] [address] [id number] [place] [address] May, [facility] [place] [facility] [address] [id number] [place] [address] May, [facility] [place] [facility] [address] [facility] [id number] [place] [address] May, [facility] [place] [facility] [address] [facility] [id number] [place] [address] Apr, [facility] [place] [facility] [address] [id number] [place] [address] Apr, [facility] [place] [facility] [address] [facility] [id number] [place] [address] Apr, [facility] [place] [facility] [address] [facility] [id number] [place] [address] Apr, [facility] [place] [facility] [address] [facility] [id number] [place] [address] Apr, [facility] [place] [facility] [address] [facility] [id number] [place] [address] Apr, [facility] [place] [facility] [address] [facility] [id number] [place] [address] Apr, [facility] [place] [facility] [address] [facility] [id number] [place] [address] Apr, [facility] [place] [facility] [address] [facility] [id number] [place] [address] Apr, [facility] [address] [id number] [place] [address] Apr, [facility] [place] [facility] [address] [id number] [place] [address] Mar, [facility] [place] [facility] [address] [id number] [place] [address] Mar, [facility] [place] [facility] [address] [id number] [place] [address] Mar, [facility] [place] [facility] [address] [id number] [place] [address] Mar, [facility] [place] [facility] [address] [id number] [place] [address] Mar, [facility] [address] [id number] [place] [address] Mar, [facility] [place] [facility] [address] [id number] [place] [address] Mar, [facility] [address] [id number] [place] [address] Mar, [facility] [address] [id number] [place] [address] Feb, [facility] [place] [facility] [address] [id number] [place] [address] Feb, [facility] [place] [facility] [address] [id number] [place] [address] Feb, [facility] [place] [facility] [address] [id number] [place] [address] Feb, [facility] [place] [facility] [address] [id number] [place] [address] 18 Feb, 2013 [facility] [place] [facility] [address] [id number] [place] [address] 18 Feb, 2013 [facility] [place] [facility] [address] [id number] [place] [address] 06 Feb, 2013 [facility] [address] [id number] [place] [address] Feb, [facility] [place] [facility] [address] [id number] [place] [address] Feb, [facility] [address] [id number] [place] [address] 05 Feb, 2013 [facility] [place] [facility] [address] [id number] [place] [address] Jan, [facility] [place] [facility] [address] [id number] [place] [address] Jan, [facility] [place] [facility] [address] [id number] [place] [address] Jan, [facility] [place] [facility] [address] [id number] [place] [address] Jan, [facility] [address] [id number] [place] [address] 18 Jan, 2013 [facility] [place] [facility] [address] [id number] [place] [address] Jan, [facility] [address] [id number] [place] [address] 15 Jan, 2013 [facility] [place] [facility] [address] [id number] [place] [address] 14 Jan, 2013 [facility] [place] [facility] [address] [id number] [place] [address] 14 Jan, 2013 [facility] [place] [facility] [address] [id number] [place] [address] Jan, [facility] [place] [facility] [address] [id number] [place] [address] Jan, [facility] [place] [facility] [address] [id number] [place] [address] Jan, [facility] [place] [facility] [address] [id number] [place] [address] Jan, [facility] [place] [facility] [address] [id number] [place] [address] Dec, [facility] [place] [facility] [address] [id number] [place] [address] Dec, [facility] [place] [facility] [address] [id number] [place] [address] Dec, [facility] [place] [facility] [address] [id number] [place] [address] Dec, [facility] [place] [facility] [address] [id number] [place] [address] Nov, [facility] [place] [facility] [address] [id number] [place] [address] Nov, [facility] [place] [facility] [address] [id number] [place] [address] Nov, [facility] [place] [facility] [address] [id number] [place] [address] Oct, [facility] [place] [facility] [address] [id number] [place] [address] Oct, [facility] [place] [facility] [address] [id number] [place] [address] Oct, [facility] [place] [facility] [address] [id number] [address] Oct, [facility] [place] [facility] [address] [id number] [place] [address] Oct, [facility] [place] [facility] [address] [id number] [place] [address] Oct, [facility] [place] [facility] [address] [id number] [place] [address] Sep, [facility] [place] [facility] [address] [id number] [place] [address] Sep, [facility] [place] [facility] [address] [id number] [place] [address] Sep, [facility] [place] [facility] [address] [id number] [place] [address] Sep, [facility] [place] [facility] [address] [id number] [place] [address] Sep, 2012 [facility] [place] [facility] [address] [id number] [place] [address] Sep, [facility] [place] [facility] [address] [id number] [place] [address] Sep, [facility] [place] [facility] [address] [id number] [place] [address] Sep, [facility] [place] [facility] [address] [id number] [place] [address] Sep, [facility] [place] [facility] [address] [id number] [place] [address] Aug, [facility] [place] [facility] [address] [id number] [place] [address] Aug, [facility] [place] [facility] [address] [id number] [place] [address] Aug, [facility] [place] [facility] [address] [id number] [place] [address] Aug, [facility] [place] [facility] [address] [id number] [place] [address] Aug, [facility] [place] [facility] [address] [id number] [place] [address] Aug, [facility] [place] [facility] [address] [id number] [place] [address] Aug, [facility] [place] [facility] [address] [id number] [place] [address] July, [facility] [place] [facility] [address] [id number] [place] [address] July, [facility] [address] [id number] [place] [address] July, [facility] [address] [id number] [place] [address] Jun, [facility] [address] [id number] [place] [address] 16 Jun, 2012 [facility] [address] [id number] [place] [address] Jun, [facility] [address] [id number] [place] [place] [address] Jun, [facility] [address] [id number] [place] [address] May, [facility] [address] [id number] [place] [address] May, [facility] [address] [id number] [place] [address] May, [facility] [address] [id number] [place] [address] May, [facility] [address] [id number] [place] [address] 14 May, 2012 [facility] [address] [id number] [place] [address] 07 May, 2012 [facility] [address] [id number] [place] [address] 06 May, 2012 [facility] [place] [facility] [address] [id number] [place] [address] 04 May, 2012 [facility] [place] [facility] [address] [id number] [place] [address] 18 Apr, 2012 [facility] [place] [facility] [address] [id number] [address] 17 Feb, 2012 [facility] [place] [facility] [address] [id number] [place] [address] 17 Feb, 2012 [facility] [place] [facility] [address] [id number] [place] [address] 17 Feb, 2012 [facility] [place] [facility] [address] [id number] [place] [address] 17 Feb, 2012 [facility] [place] [facility] [address] [id number] [place] [address] 13 Feb, 2012 [facility] [place] [facility] [address] [id number] [place] [address] 13 Feb, 2012 [facility] [place] [facility] [address] [id number] [place] [address] Feb, [facility] [place] [facility] [address] [id number] [place] [address] Feb, [facility] [place] [facility] [address] [id number] [place] [address] Feb, [facility] [place] [facility] [address] [id number] [place] [address] Feb, [facility] [place] [facility] [address] [id number] [place] [address] Jan, [facility] [place] [facility] [address] [id number] [address] Jan, [facility] [place] [facility] [address] [id number] [address] Jan, [facility] [place] [facility] [address] [id number] [place] [address] Jan, [facility] [place] [facility] [address] [id number] [place] [address] Jan, [facility] [place] [facility] [address] [id number] [place] [address] Jan, [facility] [place] [facility] [address] [id number] [place] [address] Jan, [facility] [place] [facility] [address] [id number] [place] [address] Jan, [facility] [place] [facility] [address] [id number] [place] [address] Dec, [facility] [place] [facility] [address] [id number] [place] [address] Dec, [facility] [place] [facility] [address] [id number] [place] [address] Dec, [facility] [place] [facility] [address] [id number] [place] [address] Dec, [facility] [place] [facility] [address] [id number] [place] [address] Dec, [facility] [place] [facility] [address] [id number] [place] [address] Dec, [facility] [place] [facility] [address] [id number] [place] [address] Dec, [facility] [place] [facility] [address] [id number] [place] [address] Nov, [facility] [place] [facility] [address] [id number] [place] [address] Nov, [facility] [place] [facility] [address] [id number] [place] [address] Nov, [facility] [place] [facility] [address] [id number] [place] [address] Oct, [facility] [place] [facility] [address] [id number] [place] [address] Oct, [facility] [place] [facility] [address] [id number] [place] [address] Oct, [facility] [place] [facility] [address] [id number] [place] [address] Oct, [facility] [address] [id number] [place] [address] Sep, [facility] [place] [facility] [address] [id number] [place] [address] Sep, [facility] [place] [facility] [address] [id number] [place] [address] Sep, [facility] [place] [facility] [address] [id number] [place] [address] Aug, [facility] [place] [facility] [address] [id number] [place] [address] Aug, [facility] [place] [facility] [address] [id number] [place] [address] July, [facility] [place] [facility] [address] [id number] [place] [address] July, [facility] [place] [facility] [address] [id number] [place] [address] July, [facility] [place] [facility] [address] [id number] [place] [address] Jun, [facility] [place] [facility] [address] [id number] [place] [address] Jun, [facility] [place] [facility] [address] [id number] [place] [address] May, [facility] [place] [facility] [address] [id number] [place] [address] Apr, [facility] [place] [facility] [address] [id number] [place] [address] Apr, [facility] [place] [facility] [address] [id number] [place] [address] Apr, [facility] [place] [facility] [address] [id number] [place] [address] Mar, [facility] [place] [facility] [address] [id number] [place] [address] Mar, [facility] [address] [id number] [place] [address] Mar, [facility] [place] [facility] [address] [id number] [place] [address] Mar, [facility] [place] [facility] [address] [id number] [place] [address] Feb, [facility] [place] [facility] [address] [id number] [place] [address] Feb, [facility] [place] [facility] [address] [id number] [place] [address] Feb, [facility] [place] [facility] [address] [id number] [place] [address] Feb, [facility] [place] [facility] [address] [id number] [place] [address] Jan, [facility] [place] [facility] [address] [id number] [place] [address] Jan, [facility] [place] [facility] [address] [id number] [place] [address] Jan, [facility] [place] [facility] [address] [facility] [id number] [place] [address] Jan, [facility] [place] [facility] [address] [id number] [place] [address] Jan, [facility] [place] [facility] [address] [id number] [place] [address] Dec, [facility] [place] [facility] [address] [id number] [place] [address] Sep, [facility] [place] [facility] [address] [id number] [place] [address] Feb, [facility] [place] [facility] [address] [facility] [id number] [place] [address] 30 Feb, 2010 [facility] [place] [facility] [id number] [address] Feb, [facility] [id number] [address] Dec, [facility] [address] [facility] [id number] [place] [address] Dec, [facility] [id number] [place] [address] Oct, [facility] [id number] [address] Aug, [facility] [id number] [place] [address] Feb, [facility] [id number] [place] [address] Feb, [facility] [id number] [place] [address] Jan, [facility] [address] [address] Jan, [facility] [id number] [place] [address] Dec, [facility] [id number] [address] Dec, [facility] [address] [address] Nov, IMMUNIZATIONS No Known Immunizations SOCIAL HISTORY Never Assessed REASON FOR VISIT Eye exam PLAN OF CARE VITAL SIGNS MEDICATIONS Unknown [...]
--- OUTSIDE RECORDS SUMMARY | 2018-09-29 17:40 | XMS REPORT ---
Author Author CLAUS MCDONALD [facility] Address [address] [place] [address] Care Team Providers Care Advertising Analyst Name Role Phone HARRY CLAUS Unavailable PROBLEMS Type Condition ICD9-CM Code OEE07-IV Code Onset Dates Condition Status SNOMED Code Problem High risk medication use Z79.899 Active 323171982 Problem Paranoid schizophrenia, chronic condition F20.0 Active 13814783 Problem Stress incontinence, male N39.3 Active 987910314 Problem Enuresis R32 Active 49609837 Problem Dysphagia, unspecified type R13.10 Active 92675886 Problem Unsteady gait R26.81 Active 85343842 Problem Mild intellectual disabilities F70 Active 09682596 Problem Constipation, unspecified constipation type K59.00 Active 44943057 Problem Severe episode of recurrent major depressive disorder, with psychotic features F33.3 Active 69304279 Problem Paranoid schizophrenia, chronic condition 295.32 Active 50216110 Problem Mildly mentally retarded F70 Active 59004914 Problem Hyperlipemia E78.5 Active 36641455 Problem Intermittent explosive disorder 312.34 Active 11721310 Problem Seizures R56.9 Active 98496883 ALLERGIES Substance Reaction Event Type Date Status Prozac Unknown Drug Allergy Oct, Active ENCOUNTERS Encounter Location Date Diagnosis [facility] [id number], [place] [address] Mar, [facility] [id number], [place] [address] Nov, Paranoid schizophrenia, chronic condition F20.0 ; Mild intellectual disabilities F70 ; Enuresis R32 ; Dysphagia, unspecified type R13.10 and High risk medication use Z79.899 [facility] [id number], [place] [address] Oct, [facility] [id number] [place] [address] Oct, [place] [id number] [place] [address] Oct, Paranoid schizophrenia, chronic condition F20.0 ; Enuresis R32 ; Mild intellectual disabilities F70 ; High risk medication use Z79.899 and Dysphagia, unspecified type R13.10 [place] [address] [address] July, Paranoid schizophrenia, chronic condition F20.0 and Mild intellectual disabilities F70 [place] [id number] [place] [address] Jun, Paranoid schizophrenia, chronic condition F20.0 [place] [id number] [place] [address] May, [place] [address] [address] Apr, Paranoid schizophrenia, chronic condition F20.0 ; Mild intellectual disabilities F70 and High risk medication use Z79.899 [place] [id number] [place] [address] Apr, [place] [id number] [place] [address] Mar, [place] [id number] [place] [address] Mar, [facility] [id number] [place] [address] Mar, Contusion of nose, initial encounter S00.33XA [place] [address] [address] Mar, Paranoid schizophrenia, chronic condition F20.0 ; Severe episode of recurrent major depressive disorder, with psychotic features F33.3 and Mild intellectual disabilities F70 [facility] [id number] [place] [address] Mar, Constipation, unspecified constipation type K59.00 and Abrasion of right ear, initial encounter S00.411A [facility] [id number] [place] [address] Mar, [facility] [id number] [place] [id number] Feb, Encounter for dental examination and cleaning without abnormal findings Z01.20 [facility] [address] [address] Feb, [facility] [address] [address] Feb, Paranoid schizophrenia, chronic condition F20.0 ; Mild intellectual disabilities F70 and High risk medication use Z79.899 [place] [id number] [place] [address] Jan, [facility] [id number] [place] [address] Jan, Unsteady gait R26.81 [facility] [id number] [place] [address] Dec, Encounter for immunization Z23 [facility] [id number] [place] [address] Nov, [facility] [id number] [place] [address] Oct, Paranoid schizophrenia, chronic condition F20.0 ; Mild intellectual disabilities F70 and High risk medication use Z79.899 [facility] [id number] [place] [address] Sep, [facility] [id number] [place] [address] July, [facility] [id number] [place] [address] Jun, High risk medication use Z79.899 [facility] [address], [place] [address] Apr, [facility] [id number] [address] Apr, Paranoid schizophrenia, chronic condition F20.0 ; Mild intellectual disabilities F70 and High risk medication use Z79.899 [facility] [address], [place] [address] Apr, [facility] [address], [place] [address] Feb, [facility] [id number] [place] [address] Jan, [facility] [id number] [place] [address] Jan, [facility] [id number] [place] [address] Jan, Paranoid schizophrenia, chronic condition F20.0 [facility] [address] [place] [address] Dec, Paranoid schizophrenia, chronic condition F20.0 ; Mild intellectual disabilities F70 and High risk medication use Z79.899 [facility] [address], [place] [address] Dec, [facility] [address], [place] [address] Nov, Paranoid schizophrenia, chronic condition F20.0 ; Mild intellectual disabilities F70 and High risk medication use Z79.899 [facility] [address], [place] [address] Oct, [facility] [address], [place] [address] Oct, [facility] [id number], [place] [address] Oct, [facility] [address] [facility] [id number] [address] Oct, [facility] [id number], [place] [address] Aug, [facility] [address], [place] [address] Jun, Paranoid schizophrenia, chronic condition F20.0 ; High risk medication use Z79.899 and Mild intellectual disabilities F70 [facility] [id number], [place] [address] Apr, High risk medication use Z79.899 ; Paranoid schizophrenia, chronic condition F20.0 and Mild intellectual disabilities F70 [facility] [address] [address] Apr, Encounter for dental examination Z01.20 [facility] [address], [place] [address] Apr, [facility] [address], [place] [address] Mar, Paranoid schizophrenia, chronic condition F20.0 ; Mildly mentally retarded F70 and High risk medication use Z79.899 [facility] [address], [place] [address] Feb, Paranoid schizophrenia F20.0 [facility] [address], [place] [address] Dec, [facility] [id number], [place] [address] Dec, Paranoid schizophrenia, chronic condition F20.0 and Mild mental retardation F70 [facility] [address] [facility] [id number], [place] [address] Dec, [facility] [address], [place] [address] Dec, [facility] [address], [place] [address] Dec, [facility] [id number] [place] [address] Dec, High risk medication use Z79.899 and Hyperlipemia E78.5 [facility] [id number] [place] [address] Nov, [facility] [id number] [place] [address] Sep, [facility] [id number] [place] [address] Sep, Paranoid schizophrenia, chronic condition 295.32 and Mild mental retardation 317 [facility] [id number] [place] [address] 14 Jun, 2014 [facility] [id number] [place] [address] Jun, [facility] [id number] [place] [address] Apr, [facility] [id number] [place] [address] Apr, [facility] [address], [place] [address] Apr, [facility] [id number] [place] [address] Apr, [facility] [address], [place] [address] Apr, [facility] [id number] [place] [address] Apr, [facility] [address], [place] [address] Mar, [facility] [place] [facility] [id number] [address] Mar, [facility] [place] [facility] [address] [id number] [place] [address] Mar, [facility] [place] [facility] [address] [id number] [place] [address] Mar, [facility] [place] [facility] [address] [id number] [place] [address] Mar, [facility] [place] [facility] [address] [id number] [place] [address] Mar, [facility] [place] [facility] [address] [id number] [place] [address] Feb, [facility] [place] [facility] [address] [id number] [place] [address] Feb, [facility] [place] [facility] [address] [id number] [place] [address] Jan, [facility] [place] [facility] [address] [id number] [place] [address] Jan, [facility] [place] [facility] [address] [id number] [place] [address] Jan, [facility] [place] [facility] [address] [id number] [place] [address] Jan, [facility] [place] [facility] [address] [id number] [place] [address] Jan, [facility] [place] [facility] [address] [id number] [place] [address] Jan, [facility] [place] [facility] [address] [id number] [place] [address] Jan, [facility] [place] [facility] [address] [id number] [place] [address] Dec, [facility] [place] [facility] [address] [id number] [place] [address] Dec, [facility] [place] [facility] [address] [id number] [place] [address] Dec, [facility] [place] [facility] [address] [id number] [place] [address] Dec, [facility] [place] [facility] [address] [id number] [place] [address] Dec, [facility] [place] [facility] [address] [id number] [place] [address] Dec, [facility] [place] [facility] [address] [id number] [place] [address] Dec, [facility] [place] [facility] [address] [id number] [place] [address] Dec, [facility] [place] [facility] [address] [id number] [place] [address] Nov, [facility] [place] [facility] [address] [id number] [place] [address] Nov, [facility] [place] [facility] [address] [id number] [place] [address] 15 Nov, 2013 [facility] [place] [facility] [address] [id number] [place] [address] Nov, [facility] [place] [facility] [address] [id number] [place] [address] Oct, [facility] [place] [facility] [address] [id number] [place] [address] Oct, [facility] [place] [facility] [address] [id number] [place] [address] Oct, [facility] [place] [facility] [address] [id number] [place] [address] Oct, [facility] [place] [facility] [address] [id number] [place] [address] Oct, [facility] [place] [facility] [address] [id number] [place] [address] Oct, [facility] [place] [facility] [address] [id number] [place] [address] Sep, [facility] [place] [facility] [address] [id number] [place] [address] Sep, [facility] [place] [facility] [address] [id number] [place] [address] Sep, [facility] [place] [facility] [address] [id number] [place] [address] Sep, [facility] [place] [facility] [address] [id number] [place] [address] Sep, [facility] [place] [facility] [address] [id number] [place] [address] Sep, [facility] [place] [facility] [address] [id number] [place] [address] Sep, [facility] [place] [facility] [address] [id number] [place] [address] Sep, [facility] [place] [facility] [address] [id number] [place] [address] Sep, [facility] [place] [facility] [address] [id number] [place] [address] Sep, [facility] [place] [facility] [address] [id number] [place] [address] Aug, [facility] [place] [facility] [address] [id number] [place] [address] Aug, [facility] [place] [facility] [address] [id number] [place] [address] Aug, [facility] [place] [facility] [address] [id number] [place] [address] Aug, [facility] [place] [facility] [address] [id number] [place] [address] Aug, [facility] [place] [facility] [address] [id number] [place] [address] Aug, [facility] [place] [facility] [address] [id number] [place] [address] Aug, [facility] [place] [facility] [address] [id number] [place] [address] Aug, [facility] [place] [facility] [address] [id number] [place] [address] Aug, [facility] [place] [facility] [address] [id number] [place] [address] Aug, [facility] [place] [facility] [address] [id number] [place] [address] July, [facility] [place] [facility] [address] [id number] [place] [address] July, [facility] [place] [facility] [address] [id number] [place] [address] July, [facility] [place] [facility] [address] [id number] [place] [address] July, [facility] [place] [facility] [address] [id number] [place] [address] July, [facility] [place] [facility] [address] [id number] [place] [address] July, [facility] [place] [facility] [address] [id number] [place] [address] July, [facility] [place] [facility] [address] [id number] [place] [address] July, [facility] [place] [facility] [address] [id number] [place] [address] Jun, [facility] [place] [facility] [address] [id number] [place] [address] Jun, [facility] [place] [facility] [address] [id number] [place] [address] Jun, [facility] [place] [facility] [address] [id number] [place] [address] Jun, [facility] [place] [facility] [address] [id number] [place] [address] May, [facility] [place] [facility] [address] [facility] [id number] [place] [address] May, [facility] [place] [facility] [address] [facility] [id number] [place] [address] May, [facility] [place] [facility] [address] [facility] [id number] [place] [address] May, [facility] [place] [facility] [address] [facility] [id number] [place] [address] May, [facility] [place] [facility] [address] [facility] [id number] [place] [address] May, [facility] [place] [facility] [address] [facility] [id number] [place] [address] Apr, [facility] [place] [facility] [address] [facility] [id number] [place] [address] Apr, [facility] [place] [facility] [address] [facility] [id number] [place] [address] Apr, [facility] [place] [facility] [address] [facility] [id number], [place] [address] Apr, [facility] [place] [facility] [address] [facility] [id number], [place] [address] Apr, [facility] [place] [facility] [address] [facility] [id number] [place] [address] Apr, [facility] [place] [facility] [address] [facility] [id number], [place] [address] Apr, [facility] [place] [facility] [address] [facility] [id number], [place] [address] Apr, [facility] [place] [facility] [address] [id number] [place] [address] Apr, [facility] [place] [facility] [address] [id number] [place] [address] Apr, [facility] [place] [facility] [address] [id number] [place] [address] Mar, [facility] [place] [facility] [address] [id number] [place] [address] Mar, [facility] [place] [facility] [address] [id number] [place] [address] Mar, [facility] [place] [facility] [address] [id number] [place] [address] Mar, [facility] [place] [facility] [address] [id number] [place] [address] Mar, [facility] [place] [facility] [address] [id number] [place] [address] Mar, [facility] [place] [facility] [address] [id number] [place] [address] Mar, [facility] [place] [facility] [address] [id number] [place] [address] Mar, [facility] [place] [facility] [address] [id number] [place] [address] Feb, [facility] [place] [facility] [address] [id number] [place] [address] Feb, [facility] [place] [facility] [address] [id number] [place] [address] Feb, [facility] [place] [facility] [address] [id number] [place] [address] Feb, [facility] [place] [facility] [address] [id number] [place] [address] 18 Feb, 2013 [facility] [place] [facility] [address] [id number], [place] [address] 18 Feb, 2013 [facility] [place] [facility] [address] [id number] [place] [address] Feb, [facility] [place] [facility] [address] [id number] [place] [address] Feb, [facility] [place] [facility] [address] [facility] [id number] [place] [address] Feb, [facility] [place] [facility] [address] [id number], [place] [address] 05 Feb, 2013 [facility] [place] [facility] [address] [id number] [place] [address] Jan, [facility] [place] [facility] [address] [id number], [place] [address] Jan, [facility] [place] [facility] [address] [id number], [place] [address] Jan, [facility] [place] [facility] [address] [id number], [place] [address] Jan, [facility] [place] [facility] [address] [id number], [place] [address] 18 Jan, 2013 [facility] [place] [facility] [address] [id number], [place] [address] Jan, [facility] [place] [facility] [address] [id number], [place] [address] 15 Jan, 2013 [facility] [place] [facility] [address] [id number], [place] [address] 14 Jan, 2013 [facility] [place] [facility] [address] [id number], [place] [address] 14 Jan, 2013 [facility] [place] [facility] [address] [id number], [place] [address] Jan, [facility] [place] [facility] [address] [id number], [place] [address] Jan, [facility] [place] [facility] [address] [id number] [place] [address] Jan, [facility] [address] [id number] [place] [address] Jan, [facility] [place] [facility] [address] [id number] [place] [address] Dec, [facility] [address] [id number] [place] [address] Dec, [facility] [place] [facility] [address] [id number] [place] [address] Dec, [facility] [place] [facility] [address] [id number] [place] [address] Dec, [facility] [place] [facility] [address] [id number] [place] [address] Nov, [facility] [place] [facility] [address] [id number] [place] [address] Nov, [facility] [place] [facility] [address] [id number] [place] [address] Nov, [facility] [place] [facility] [address] [id number] [place] [address] Oct, [facility] [place] [facility] [address] [id number] [place] [address] Oct, [facility] [place] [facility] [address] [id number] [place] [address] Oct, [facility] [place] [facility] [address] [id number] [place] [address] Oct, [facility] [place] [facility] [address] [id number] [place] [address] Oct, [facility] [place] [facility] [address] [id number] [place] [address] Oct, [facility] [place] [facility] [address] [id number] [place] [address] Sep, [facility] [place] [facility] [address] [id number] [place] [address] Sep, 2012 [facility] [place] [facility] [address] [id number] [place] [address] Sep, [facility] [place] [facility] [address] [id number] [place] [address] Sep, 2012 [facility] [place] [facility] [address] [id number] [place] [address] Sep, 2012 [facility] [place] [facility] [address] [id number] [place] [address] Sep, [facility] [place] [facility] [address] [id number] [place] [address] Sep, [facility] [place] [facility] [address] [id number] [place] [address] Sep, [facility] [place] [facility] [address] [id number] [place] [address] Sep, [facility] [place] [facility] [address] [id number] [place] [address] Aug, [facility] [place] [facility] [address] [id number] [place] [address] Aug, [facility] [place] [facility] [address] [id number] [place] [address] Aug, [facility] [place] [facility] [address] [id number], [place] [address] Aug, [facility] [place] [facility] [address] [id number] [place] [address] Aug, [facility] [place] [facility] [address] [id number] [place] [address] Aug, [facility] [place] [facility] [address] [id number] [place] [address] Aug, [facility] [place] [facility] [address] [id number] [place] [address] July, [facility] [address] [id number] [place] [address] July, [facility] [address] [id number] [place] [address] July, [facility] [address] [id number] [place] [address] Jun, [facility] [address] [id number] [place] [id number] 16 Jun, 2012 [facility] [address] [id number] [place] [address] Jun, [facility] [address] [id number] [place] [address] Jun, [facility] [address] [facility] [id number] [place] [address] May, [facility] [address] [id number] [place] [address] May, [facility] [address] [id number] [place] [address] 18 May, 2012 [facility] [address] [facility] [id number] [place] [address] May, [facility] [address] [id number] [place] [address] 14 May, 2012 [facility] [place] [facility] [address] [id number] [place] [address] 07 May, 2012 [facility] [place] [facility] [address] [id number] [place] [address] 06 May, 2012 [facility] [place] [facility] [address] [facility] [id number] [place] [address] 04 May, 2012 [facility] [place] [facility] [address] [facility] [id number] [place] [address] 18 Apr, 2012 [facility] [place] [facility] [address] [id number] [place] [address] 17 Feb, 2012 [facility] [place] [facility] [address] [id number] [place] [address] 17 Feb, 2012 [facility] [place] [facility] [address] [id number] [place] [address] 17 Feb, 2012 [facility] [place] [facility] [address] [id number] [place] [address] 17 Feb, 2012 [facility] [place] [facility] [address] [id number] [place] [address] Feb, [facility] [place] [facility] [address] [id number] [place] [address] 13 Feb, 2012 [facility] [place] [facility] [address] [id number] [place] [address] Feb, [facility] [place] [facility] [address] [id number] [place] [address] Feb, [facility] [place] [facility] [address] [id number] [place] [address] Feb, [facility] [place] [facility] [address] [id number] [place] [address] Feb, [facility] [place] [facility] [address] [id number] [place] [address] Jan, [facility] [place] [facility] [address] [id number] [place] [address] Jan, [facility] [place] [facility] [address] [id number] [place] [address] Jan, [facility] [place] [facility] [address] [id number] [place] [address] Jan, [facility] [place] [facility] [address] [id number] [place] [address] Jan, [facility] [place] [facility] [address] [id number] [place] [address] Jan, [facility] [place] [facility] [address] [id number] [place] [address] Jan, [facility] [place] [facility] [address] [id number] [place] [address] Jan, [facility] [place] [facility] [address] [id number] [place] [address] Dec, [facility] [place] [facility] [address] [id number] [place] [address] Dec, [facility] [place] [facility] [address] [id number] [place] [address] Dec, [facility] [place] [facility] [address] [id number] [place] [address] Dec, [facility] [place] [facility] [address] [id number] [place] [address] Dec, [facility] [place] [facility] [address] [id number] [place] [address] Dec, [facility] [place] [facility] [address] [id number] [place] [address] Dec, [facility] [place] [facility] [address] [id number] [place] [address] Nov, [facility] [place] [facility] [address] [id number], [place] [address] Nov, [facility] [place] [facility] [address] [id number], [place] [address] Nov, [facility] [place] [facility] [address] [id number] [place] [address] Oct, [facility] [place] [facility] [address] [id number] [place] [address] Oct, [facility] [place] [facility] [address] [id number] [place] [address] Oct, [facility] [place] [facility] [address] [id number] [place] [address] Oct, [facility] [place] [facility] [address] [id number] [place] [address] Sep, [facility] [place] [facility] [address] [id number] [place] [address] Sep, [facility] [place] [facility] [address] [id number] [place] [address] Sep, [facility] [place] [facility] [address] [id number] [place] [address] Aug, [facility] [place] [facility] [address] [id number] [place] [address] Aug, [facility] [place] [facility] [address] [id number] [place] [address] July, [facility] [place] [facility] [address] [id number] [place] [address] July, [facility] [place] [facility] [address] [id number] [place] [address] July, [facility] [place] [facility] [address] [id number] [place] [address] Jun, [facility] [place] [facility] [address] [id number] [place] [address] Jun, [facility] [place] [facility] [address] [id number] [place] [address] May, [facility] [place] [facility] [address] [id number] [place] [address] Apr, [facility] [place] [facility] [address] [id number] [place] [address] Apr, [facility] [place] [facility] [address] [id number] [place] [address] Apr, [facility] [place] [facility] [address] [id number] [place] [address] Mar, [facility] [address] [id number] [place] [address] Mar, [facility] [place] [facility] [address] [id number] [place] [address] Mar, [facility] [place] [facility] [address] [id number] [place] [address] Mar, [facility] [place] [facility] [address] [id number] [place] [address] Feb, [facility] [place] [facility] [address] [id number] [place] [address] Feb, [facility] [place] [facility] [address] [id number] [place] [address] Feb, [facility] [place] [facility] [address] [id number] [place] [address] Feb, [facility] [place] [facility] [address] [id number] [place] [address] Jan, [facility] [place] [facility] [address] [id number] [place] [address] Jan, [facility] [place] [facility] [address] [id number], [place] [address] Jan, [facility] [place] [facility] [address] [id number], [place] [address] Jan, [facility] [place] [facility] [address] [id number], [place] [address] Jan, [facility] [place] [facility] [address] [id number] [place] [address] Dec, [facility] [place] [facility] [address] [id number], [place] [address] Sep, [facility] [place] [facility] [address] [id number], [place] [address] Feb, [facility] [place] [facility] [address] [id number], [place] [address] 30 Feb, 2010 [facility] [address], [place] [address] Feb, [facility] [address], [place] [address] 29 Dec, 2009 [facility] [address], [place] [address] Dec, [facility] [id number] [place] [address] Oct, [facility] [id number] [place] [address] Aug, [facility] [id number] [place] [address] 15 Feb, 2009 [facility] [id number] [place] [address] Feb, [facility] [address] [id number] [address] Jan, [facility] [address], [place] [address] Jan, [facility] [address], [place] [address] Dec, [facility] [address], [place] [address] Dec, [facility] [address], [place] [address] Nov, IMMUNIZATIONS No Known Immunizations SOCIAL HISTORY Never Assessed REASON FOR VISIT aleisha/edouard Penny MA PLAN OF CARE Activity Details Follow Up 6 Weeks Reason: VITAL SIGNS Height 68 in 2017-10-20 Weight 181.0 lbs 2017-10-20 Heart Rate 100 bpm 2017-10-20 Respiratory Rate 20 2017-10-20 Oximetry 96 % 2017-10-20 BMI 27.52 kg/m2 2017-10-20 Blood pressure systolic 140 mmHg 2017-10-20 Blood pressure diastolic 62 mmHg 2017-10-20 MEDICATIONS Medication Instructions Dosage Frequency Start Date End Date Duration Status Atorvastatin Calcium 20 MG Active Levetiracetam 500 MG Orally Twice a day 1 tablet 12h Active Trintellix 10 mg Orally Once a day for depression 1 tablet Mar, Active Olanzapine 10 mg Orally Once a day in the morning 1 tablet Active Metoprolol Tartrate 25 MG Orally Twice a day 1 tablet with food 12h Active Folic Acid 1 MG Orally Once a day 1 tablet 24h Active Tramadol HCl 50 mg Orally once a day for back pain 1 tablet as needed Active Oxybutynin Chloride 5 MG Orally Twice a day 1 tablet 12h Active QUEtiapine Fumarate ER 400 mg Orally Once a day 1 tablet in the evening four hours before bedtime 24h Oct, 30 day(s) Active DOK 100 mg Orally 2 times a day 1 capsule as needed 12h Active Tylenol 325 MG Orally every 4 hrs 1 tablet as needed 4h Active Meloxicam 15 MG Orally Once a day 1 tablet 24h Active Colace 100 MG Orally Once a day 1 capsule as needed 24h Active Ranitidine 1 tab Active Divalproex Sodium 125 MG Orally 4 times a day for seizures 4 capsules Active Loratadine 10 MG Active RESULTS No Results PROCEDURES Procedure Date Ordered Result Body Site [facility] VISIT ESTABLISHED PATIENT Oct 20, 2017 INSTRUCTIONS MEDICATIONS ADMINISTERED No Known Medications [...]
--- OUTSIDE RECORDS SUMMARY | 2018-09-29 17:41 | XMS REPORT ---
Author Author CLAUS MCDONALD [facility] Address [address] [place] [address] Care Team Providers Care Functional Analyst Name Role Phone HARRY CLAUS Unavailable PROBLEMS Type Condition ICD9-CM Code OHC58-BV Code Onset Dates Condition Status SNOMED Code Problem High risk medication use Z79.899 Active 912986267 Problem Paranoid schizophrenia, chronic condition F20.0 Active 70819657 Problem Stress incontinence, male N39.3 Active 096502864 Problem Enuresis R32 Active 22045575 Problem Dysphagia, unspecified type R13.10 Active 21850755 Problem Unsteady gait R26.81 Active 78680375 Problem Mild intellectual disabilities F70 Active 24767448 Problem Constipation, unspecified constipation type K59.00 Active 52318854 Problem Severe episode of recurrent major depressive disorder, with psychotic features F33.3 Active 72433493 Problem Paranoid schizophrenia, chronic condition 295.32 Active 60606608 Problem Mildly mentally retarded F70 Active 61568052 Problem Hyperlipemia E78.5 Active 21608095 Problem Intermittent explosive disorder 312.34 Active 72866789 Problem Seizures R56.9 Active 47662569 ALLERGIES No Information ENCOUNTERS Encounter Location Date Diagnosis [facility] [id number] [place] [address] Mar, [facility] [id number] [place] [address] Nov, Paranoid schizophrenia, chronic condition F20.0 ; Mild intellectual disabilities F70 ; Enuresis R32 ; Dysphagia, unspecified type R13.10 and High risk medication use Z79.899 [facility] [address] [address] Oct, [facility] [id number] [place] [address] Oct, [place] [id number] [place] [address] Oct, Paranoid schizophrenia, chronic condition F20.0 ; Enuresis R32 ; Mild intellectual disabilities F70 ; High risk medication use Z79.899 and Dysphagia, unspecified type R13.10 [facility] [id number] [place] [address] July, Paranoid schizophrenia, chronic condition F20.0 and Mild intellectual disabilities F70 [place] [id number] [place] [address] Jun, Paranoid schizophrenia, chronic condition F20.0 [place] [id number] [place] [address] May, [place] [id number] [place] [address] Apr, Paranoid schizophrenia, chronic condition F20.0 ; Mild intellectual disabilities F70 and High risk medication use Z79.899 [place] [id number] [place] [address] Apr, [place] [id number] [place] [address] Mar, [place] [id number] [place] [address] Mar, [facility] [id number] [place] [address] Mar, Contusion of nose, initial encounter S00.33XA [place] [id number] [place] [address] Mar, Paranoid schizophrenia, chronic condition F20.0 ; Severe episode of recurrent major depressive disorder, with psychotic features F33.3 and Mild intellectual disabilities F70 [facility] [id number] [place] [address] Mar, Constipation, unspecified constipation type K59.00 and Abrasion of right ear, initial encounter S00.411A [facility] [id number] [place] [address] Mar, [facility] [id number] [id number] Feb, Encounter for dental examination and cleaning without abnormal findings Z01.20 [facility] [address] [address] Feb, [facility] [id number] [place] [address] Feb, Paranoid schizophrenia, chronic condition F20.0 ; Mild intellectual disabilities F70 and High risk medication use Z79.899 [facility] [id number] [place] [address] Jan, [facility] [id number] [place] [address] Jan, Unsteady gait R26.81 [facility] [id number] [place] [address] Dec, Encounter for immunization Z23 [facility] [id number] [place] [address] Nov, [facility] [id number] [place] [address] Oct, Paranoid schizophrenia, chronic condition F20.0 ; Mild intellectual disabilities F70 and High risk medication use Z79.899 [facility] [id number] [place] [address] Sep, [facility] [id number] [place] [address] July, [facility] [id number] [place] [address] Jun, High risk medication use Z79.899 [facility] [address], [place] [address] Apr, [facility] [address], [place] [address] Apr, Paranoid schizophrenia, chronic condition F20.0 ; Mild intellectual disabilities F70 and High risk medication use Z79.899 [facility] [address], [place] [address] Apr, [facility] [address], [place] [address] Feb, [facility] [address], [place] [address] Jan, [facility] [address], [place] [address] Jan, [facility] [id number], [place] [address] Jan, Paranoid schizophrenia, chronic condition F20.0 [facility] [address], [place] [address] Dec, Paranoid schizophrenia, chronic condition F20.0 ; Mild intellectual disabilities F70 and High risk medication use Z79.899 [facility] [address], [place] [address] Dec, [facility] [address], [place] [address] Nov, Paranoid schizophrenia, chronic condition F20.0 ; Mild intellectual disabilities F70 and High risk medication use Z79.899 [facility] [address], [place] [address] Oct, [facility] [address], [place] [address] Oct, [facility] [address], [place] [address] Oct, [facility] [address] [facility] [id number] [address] Oct, [facility] [address], [place] [address] Aug, [facility] [address], [place] [address] Jun, Paranoid schizophrenia, chronic condition F20.0 ; High risk medication use Z79.899 and Mild intellectual disabilities F70 [facility] [address], [place] [address] Apr, High risk medication use Z79.899 ; Paranoid schizophrenia, chronic condition F20.0 and Mild intellectual disabilities F70 [facility] [address] [id number] Apr, Encounter for dental examination Z01.20 [facility] [id number] [place] [address] Apr, [facility] [id number] [place] [address] Mar, Paranoid schizophrenia, chronic condition F20.0 ; Mildly mentally retarded F70 and High risk medication use Z79.899 [facility] [address], [place] [address] Feb, Paranoid schizophrenia F20.0 [facility] [address], [place] [address] Dec, [facility] [address], [place] [address] Dec, Paranoid schizophrenia, chronic condition F20.0 and Mild mental retardation F70 [facility] [address], [place] [address] Dec, [facility] [address], [place] [address] Dec, [facility] [address], [place] [address] Dec, [facility] [id number] [place] [address] Dec, High risk medication use Z79.899 and Hyperlipemia E78.5 [facility] [address], [place] [address] Nov, [facility] [id number] [place] [address] Sep, [facility] [id number] [place] [address] Sep, Paranoid schizophrenia, chronic condition 295.32 and Mild mental retardation 317 [facility] [address], [place] [address] 14 Jun, 2014 [facility] [id number] [place] [address] Jun, [facility] [address], [place] [address] Apr, [facility] [id number] [place] [address] Apr, [facility] [address], [place] [address] Apr, [facility] [id number], [place] [address] Apr, [facility] [address], [place] [address] Apr, [facility] [id number] [place] [address] Apr, [facility] [address], [place] [address] Mar, [facility] [id number] [place] [address] Mar, [facility] [place] [facility] [address] [id number] [place] [address] Mar, [facility] [place] [facility] [address] [id number] [place] [address] Mar, [facility] [place] [facility] [address] [id number] [place] [address] Mar, [facility] [place] [facility] [address] [id number] [place] [address] Mar, [facility] [place] [facility] [address] [id number] [place] [address] Feb, [facility] [place] [facility] [address] [id number] [place] [address] Feb, [facility] [place] [facility] [address] [id number] [place] [address] Jan, [facility] [place] [facility] [address] [id number] [place] [address] Jan, [facility] [place] [facility] [address] [id number] [place] [address] Jan, [facility] [place] [facility] [address] [id number] [place] [address] Jan, [facility] [place] [facility] [address] [id number], [place] [address] Jan, [facility] [place] [facility] [address] [id number] [address] Jan, [facility] [place] [facility] [address] [id number] [place] [address] Jan, [facility] [place] [facility] [address] [id number], [place] [address] Dec, [facility] [place] [facility] [address] [id number] [place] [address] Dec, [facility] [place] [facility] [address] [id number] [place] [address] Dec, [facility] [place] [facility] [address] [id number] [place] [address] Dec, [facility] [place] [facility] [address] [id number] [place] [address] Dec, [facility] [place] [facility] [address] [id number] [place] [address] Dec, [facility] [place] [facility] [address] [id number] [place] [address] Dec, [facility] [place] [facility] [address] [id number] [place] [address] Dec, [facility] [place] [facility] [address] [id number] [place] [address] Nov, [facility] [place] [facility] [address] [id number] [place] [address] Nov, [facility] [place] [facility] [address] [id number] [place] [address] 15 Nov, 2013 [facility] [place] [facility] [address] [id number] [place] [address] Nov, [facility] [place] [facility] [address] [id number] [place] [address] Oct, [facility] [place] [facility] [address] [id number] [place] [address] Oct, [facility] [place] [facility] [address] [id number] [place] [address] Oct, [facility] [place] [facility] [address] [id number] [place] [address] Oct, [facility] [place] [facility] [address] [id number] [place] [address] Oct, [facility] [place] [facility] [address] [id number] [place] [address] Oct, [facility] [place] [facility] [address] [id number] [place] [address] Sep, [facility] [place] [facility] [address] [id number] [place] [address] Sep, [facility] [place] [facility] [address] [id number] [place] [address] Sep, [facility] [place] [facility] [address] [id number] [place] [address] Sep, [facility] [place] [facility] [address] [id number] [place] [address] Sep, [facility] [place] [facility] [address] [id number] [place] [address] Sep, [facility] [place] [facility] [address] [id number] [place] [address] Sep, [facility] [place] [facility] [address] [id number] [place] [address] Sep, [facility] [place] [facility] [address] [id number] [place] [address] Sep, [facility] [place] [facility] [address] [id number] [place] [address] Sep, [facility] [place] [facility] [address] [id number] [place] [address] Aug, [facility] [place] [facility] [address] [id number] [place] [address] Aug, [facility] [place] [facility] [address] [id number] [place] [address] Aug, [facility] [place] [facility] [address] [id number] [place] [address] Aug, [facility] [place] [facility] [address] [id number] [place] [address] Aug, [facility] [place] [facility] [address] [id number] [place] [address] Aug, [facility] [place] [facility] [address] [id number] [place] [address] Aug, [facility] [place] [facility] [address] [id number] [place] [address] Aug, [facility] [place] [facility] [address] [id number] [place] [address] Aug, [facility] [place] [facility] [address] [id number] [place] [address] Aug, [facility] [place] [facility] [address] [id number] [place] [address] July, [facility] [place] [facility] [address] [id number] [place] [address] July, [facility] [place] [facility] [address] [id number] [place] [address] July, [facility] [place] [facility] [address] [id number] [place] [address] July, [facility] [place] [facility] [address] [id number] [place] [address] July, [facility] [place] [facility] [address] [id number] [place] [address] July, [facility] [place] [facility] [address] [id number] [place] [address] July, [facility] [place] [facility] [address] [id number] [place] [address] July, [facility] [place] [facility] [address] [id number] [place] [address] Jun, [facility] [place] [facility] [address] [id number] [place] [address] Jun, [facility] [place] [facility] [address] [id number] [place] [address] Jun, [facility] [place] [facility] [address] [id number] [place] [address] 11 Jun, 2013 [facility] [place] [facility] [address] [id number] [place] [address] May, [facility] [place] [facility] [address] [id number] [place] [address] May, [facility] [place] [facility] [address] [id number] [place] [address] May, [facility] [place] [facility] [address] [id number] [place] [address] May, [facility] [place] [facility] [address] [id number] [place] [address] May, [facility] [place] [facility] [address] [facility] [id number] [place] [address] May, [facility] [place] [facility] [address] [id number] [place] [address] Apr, [facility] [place] [facility] [address] [id number] [place] [address] Apr, [facility] [place] [facility] [address] [facility] [id number] [place] [address] Apr, [facility] [place] [facility] [address] [facility] [id number] [place] [address] Apr, [facility] [place] [facility] [address] [facility] [id number], [place] [address] Apr, [facility] [place] [facility] [address] [facility] [id number] [place] [address] Apr, [facility] [place] [facility] [address] [id number] [place] [address] Apr, [facility] [place] [facility] [address] [facility] [id number] [place] [address] Apr, [facility] [place] [facility] [address] [facility] [id number], [place] [address] Apr, [facility] [address] [id number] [place] [address] Apr, [facility] [place] [facility] [address] [id number] [place] [address] Mar, [facility] [address] [id number] [place] [address] Mar, [facility] [place] [facility] [address] [id number] [place] [address] Mar, [facility] [address] [id number] [place] [address] Mar, [facility] [address] [id number] [place] [address] Mar, [facility] [address] [id number] [place] [address] Mar, [facility] [address] [id number] [place] [address] Mar, [facility] [address] [id number] [place] [address] Mar, [facility] [address] [id number] [place] [address] Feb, [facility] [address] [id number] [place] [address] Feb, [facility] [place] [facility] [address] [id number], [place] [address] Feb, [facility] [place] [facility] [address] [id number] [place] [address] Feb, [facility] [place] [facility] [address] [id number] [place] [address] 18 Feb, 2013 [facility] [place] [facility] [address] [id number] [place] [address] 18 Feb, 2013 [facility] [place] [facility] [address] [id number] [place] [address] 06 Feb, 2013 [facility] [place] [facility] [address] [id number] [place] [address] 06 Feb, 2013 [facility] [place] [facility] [address] [id number] [place] [address] 05 Feb, 2013 [facility] [place] [facility] [address] [id number] [place] [address] 05 Feb, 2013 [facility] [place] [facility] [address] [id number] [place] [address] Jan, [facility] [place] [facility] [address] [id number] [place] [address] Jan, [facility] [place] [facility] [address] [id number] [place] [address] Jan, [facility] [place] [facility] [address] [id number] [place] [address] Jan, [facility] [place] [facility] [address] [id number] [place] [address] 18 Jan, 2013 [facility] [place] [facility] [address] [id number] [place] [address] 15 Jan, 2013 [facility] [place] [facility] [address] [id number] [place] [address] 15 Jan, 2013 [facility] [place] [facility] [address] [id number] [place] [address] 14 Jan, 2013 [facility] [place] [facility] [address] [id number] [place] [address] 14 Jan, 2013 [facility] [place] [facility] [address] [id number] [place] [address] 06 Jan, 2013 [facility] [place] [facility] [address] [id number] [place] [address] 06 Jan, 2013 [facility] [place] [facility] [address] [id number] [place] [address] Jan, [facility] [place] [facility] [address] [id number] [place] [address] Jan, [facility] [place] [facility] [address] [id number] [place] [address] Dec, [facility] [place] [facility] [address] [id number] [place] [address] Dec, [facility] [place] [facility] [address] [id number] [place] [address] Dec, [facility] [place] [facility] [address] [id number] [place] [address] Dec, [facility] [place] [facility] [address] [id number] [place] [address] Nov, [facility] [place] [facility] [address] [id number] [place] [address] Nov, [facility] [place] [facility] [address] [id number] [place] [address] Nov, [facility] [place] [facility] [address] [id number] [place] [address] Oct, [facility] [place] [facility] [address] [id number] [place] [address] Oct, [facility] [place] [facility] [address] [id number], [place] [address] Oct, [facility] [place] [facility] [address] [id number], [place] [address] Oct, [facility] [place] [facility] [address] [id number] [place] [address] Oct, [facility] [place] [facility] [address] [id number], [place] [address] Oct, [facility] [place] [facility] [address] [id number] [place] [address] Sep, [facility] [place] [facility] [address] [id number] [place] [address] Sep, 2012 [facility] [place] [facility] [address] [id number] [place] [address] Sep, 2012 [facility] [place] [facility] [address] [id number] [place] [address] Sep, 2012 [facility] [place] [facility] [address] [id number] [place] [address] Sep, 2012 [facility] [place] [facility] [address] [id number] [place] [address] Sep, [facility] [place] [facility] [address] [id number] [place] [address] Sep, [facility] [place] [facility] [address] [id number] [place] [address] Sep, [facility] [place] [facility] [address] [id number] [place] [address] Sep, [facility] [place] [facility] [address] [id number] [place] [address] Aug, [facility] [place] [facility] [address] [id number] [place] [address] Aug, [facility] [place] [facility] [address] [id number] [place] [address] Aug, [facility] [place] [facility] [address] [id number] [place] [address] Aug, [facility] [place] [facility] [address] [id number] [place] [address] Aug, [facility] [place] [facility] [address] [id number] [place] [address] Aug, [facility] [place] [facility] [address] [id number] [place] [address] Aug, [facility] [place] [facility] [address] [id number] [place] [address] July, [facility] [place] [facility] [address] [id number] [place] [address] July, [facility] [address] [id number] [place] [address] July, [facility] [address] [id number] [place] [address] Jun, [facility] [address] [id number] [place] [address] Jun, [facility] [address] [id number] [place] [address] Jun, [facility] [address] [id number] [place] [address] Jun, [facility] [address] [id number] [place] [address] May, [facility] [address] [id number] [place] [address] May, [facility] [address] [id number] [place] [address] May, [facility] [address] [id number] [place] [address] May, [facility] [address] [id number] [place] [address] May, [facility] [address] [id number] [place] [address] May, [facility] [address] [id number] [place] [address] 06 May, 2012 [facility] [address] [id number] [place] [address] 04 May, 2012 [facility] [address] [id number] [place] [address] 18 Apr, 2012 [facility] [address] [id number] [place] [address] 17 Feb, 2012 [facility] [place] [facility] [address] [id number] [place] [address] 17 Feb, 2012 [facility] [place] [facility] [address] [id number] [place] [address] 17 Feb, 2012 [facility] [place] [facility] [address] [id number] [place] [address] 17 Feb, 2012 [facility] [place] [facility] [address] [id number] [place] [address] 13 Feb, 2012 [facility] [place] [facility] [address] [id number] [place] [address] 13 Feb, 2012 [facility] [place] [facility] [address] [id number] [place] [address] Feb, [facility] [place] [facility] [address] [id number] [place] [address] Feb, [facility] [place] [facility] [address] [id number] [place] [address] Feb, [facility] [place] [facility] [address] [id number] [place] [address] Feb, [facility] [place] [facility] [address] [id number] [place] [address] Jan, [facility] [place] [facility] [address] [id number] [place] [address] Jan, [facility] [place] [facility] [address] [id number] [place] [address] Jan, [facility] [place] [facility] [address] [id number] [place] [address] Jan, [facility] [place] [facility] [address] [id number] [place] [address] Jan, [facility] [place] [facility] [address] [id number] [place] [address] Jan, [facility] [place] [facility] [address] [id number] [place] [address] Jan, [facility] [place] [facility] [address] [id number] [place] [address] Jan, [facility] [place] [facility] [address] [id number] [place] [address] Dec, [facility] [place] [facility] [address] [id number] [place] [address] Dec, [facility] [place] [facility] [address] [id number] [place] [address] Dec, [facility] [place] [facility] [address] [id number] [place] [address] Dec, [facility] [place] [facility] [address] [id number] [place] [address] Dec, [facility] [place] [facility] [address] [id number] [place] [address] Dec, [facility] [place] [facility] [address] [id number] [place] [address] Dec, [facility] [place] [facility] [address] [id number] [place] [address] Nov, [facility] [place] [facility] [address] [id number] [place] [address] Nov, [facility] [place] [facility] [address] [id number] [place] [address] Nov, [facility] [place] [facility] [address] [id number] [place] [address] Oct, [facility] [place] [facility] [address] [id number] [place] [address] Oct, [facility] [place] [facility] [address] [id number] [place] [address] Oct, [facility] [place] [facility] [address] [id number] [place] [address] Oct, [facility] [place] [facility] [address] [id number] [place] [address] Sep, [facility] [place] [facility] [address] [id number] [place] [address] Sep, [facility] [place] [facility] [address] [id number] [place] [address] Sep, [facility] [place] [facility] [address] [id number] [place] [address] Aug, [facility] [place] [facility] [address] [id number] [place] [address] Aug, [facility] [place] [facility] [address] [id number] [place] [address] July, [facility] [place] [facility] [address] [id number] [place] [address] July, [facility] [place] [facility] [address] [id number] [place] [address] July, [facility] [place] [facility] [address] [id number] [place] [address] Jun, [facility] [place] [facility] [address] [id number] [place] [address] Jun, [facility] [place] [facility] [address] [id number] [place] [address] May, [facility] [place] [facility] [address] [id number] [place] [address] Apr, [facility] [place] [facility] [address] [id number] [place] [address] Apr, [facility] [place] [facility] [address] [id number] [place] [address] Apr, [facility] [place] [facility] [address] [id number] [place] [address] Mar, [facility] [place] [facility] [address] [id number] [place] [address] 18 Mar, 2011 [facility] [address] [id number] [place] [address] Mar, [facility] [place] [facility] [address] [id number] [place] [address] Mar, [facility] [address] [id number] [place] [address] Feb, [facility] [place] [facility] [address] [id number] [place] [address] Feb, [facility] [address] [id number] [place] [address] Feb, [facility] [place] [facility] [address] [id number] [place] [address] Feb, [facility] [place] [facility] [address] [id number] [place] [address] Jan, [facility] [place] [facility] [address] [id number] [place] [address] Jan, [facility] [place] [facility] [address] [id number] [place] [address] Jan, [facility] [place] [facility] [address] [facility] [id number] [place] [address] Jan, [facility] [place] [facility] [address] [id number] [place] [address] Jan, [facility] [place] [facility] [address] [id number] [place] [address] Dec, [facility] [place] [facility] [address] [id number] [place] [address] Sep, [facility] [place] [facility] [address] [id number] [place] [address] Feb, [facility] [place] [facility] [address] [id number] [place] [address] 30 Feb, 2010 [facility] [id number] [address] Feb, [facility] [id number], [place] [address] Dec, [facility] [address] [facility] [id number] [address] Dec, [facility] [id number] [place] [address] Oct, [facility] [id number] [place] [address] Aug, [facility] [id number] [place] [address] Feb, [facility] [id number], [place] [address] Feb, [facility] [id number] [place] [address] Jan, [facility] [id number], [place] [address] Jan, [facility] [id number] [place] [address] Dec, [facility] [id number] [place] [address] Dec, [facility] [id number] [place] [address] Nov, IMMUNIZATIONS No Known Immunizations SOCIAL HISTORY Never Assessed REASON FOR VISIT behavior PLAN OF CARE VITAL SIGNS MEDICATIONS Unknown [...]
--- OUTSIDE RECORDS SUMMARY | 2018-09-29 17:42 | XMS REPORT ---
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 Name Role Phone HARRYARYANA Unavailable PROBLEMS Type Condition ICD9-CM Code RUI16-NG Code Onset Dates Condition Status SNOMED Code Problem High risk medication use Z79.899 Active 083798410 Problem Paranoid schizophrenia, chronic condition F20.0 Active 72037019 Problem Stress incontinence, male N39.3 Active 578900936 Problem Enuresis R32 Active 98924752 Problem Dysphagia, unspecified type R13.10 Active 12174140 Problem Unsteady gait R26.81 Active 29242491 Problem Mild intellectual disabilities F70 Active 08742526 Problem Constipation, unspecified constipation type K59.00 Active 94140717 Problem Severe episode of recurrent major depressive disorder, with psychotic features F33.3 Active 10072462 Problem Paranoid schizophrenia, chronic condition 295.32 Active 10089976 Problem Mildly mentally retarded F70 Active 37084613 Problem Hyperlipemia E78.5 Active 39787180 Problem Intermittent explosive disorder 312.34 Active 53603576 Problem Seizures R56.9 Active 96961237 ALLERGIES Substance Reaction Event Type Date Status Prozac Unknown Drug Allergy July, Active ENCOUNTERS Encounter Location Date Diagnosis [facility] [id number], [place] [address] Nov, [facility] [id number], [place] [address] Oct, [facility] [id number], [place] [address] Oct, Paranoid schizophrenia, chronic condition F20.0 ; Enuresis R32 ; Mild intellectual disabilities F70 ; High risk medication use Z79.899 and Dysphagia, unspecified type R13.10 [facility] [id number] [place] [address] July, Paranoid schizophrenia, chronic condition F20.0 and Mild intellectual disabilities F70 [place] [address] [address] Jun, Paranoid schizophrenia, chronic condition F20.0 [place] [address] [address] May, [place] [address] [address] Apr, Paranoid schizophrenia, chronic condition F20.0 ; Mild intellectual disabilities F70 and High risk medication use Z79.899 [place] [address] [address] Apr, [place] [address] [address] Mar, [place] [address] [address] Mar, [facility] [address] [address] Mar, Contusion of nose, initial encounter S00.33XA [place] [id number] [place] [address] Mar, Paranoid schizophrenia, chronic condition F20.0 ; Severe episode of recurrent major depressive disorder, with psychotic features F33.3 and Mild intellectual disabilities F70 [facility] [id number] [place] [address] Mar, Constipation, unspecified constipation type K59.00 and Abrasion of right ear, initial encounter S00.411A [place] [id number] [place] [address] Mar, [facility] [id number] [place] [id number] Feb, Encounter for dental examination and cleaning without abnormal findings Z01.20 [facility] [address], [place] [address] Feb, [facility] [id number] [place] [address] Feb, Paranoid schizophrenia, chronic condition F20.0 ; Mild intellectual disabilities F70 and High risk medication use Z79.899 [facility] [id number] [place] [address] Jan, [facility] [id number] [place] [address] Jan, Unsteady gait R26.81 [facility] [id number] [place] [address] Dec, Encounter for immunization Z23 [place] [id number] [place] [address] Nov, [facility] [id number] [place] [address] Oct, Paranoid schizophrenia, chronic condition F20.0 ; Mild intellectual disabilities F70 and High risk medication use Z79.899 [place] [address], [place] [address] Sep, [place] [id number] [place] [address] July, [facility] [id number] [place] [address] Jun, High risk medication use Z79.899 [place] [id number] [place] [address] Apr, [facility] [id number] [place] [address] Apr, Paranoid schizophrenia, chronic condition F20.0 ; Mild intellectual disabilities F70 and High risk medication use Z79.899 [place] [address], [place] [address] Apr, [facility] [address] [address] Feb, [facility] [address] [address] Jan, [facility] [address], [place] [address] Jan, [facility] [address], [place] [address] Jan, Paranoid schizophrenia, chronic condition F20.0 [facility] [address], [place] [address] Dec, Paranoid schizophrenia, chronic condition F20.0 ; Mild intellectual disabilities F70 and High risk medication use Z79.899 [facility] [address], [place] [address] Dec, [facility] [address], [place] [address] Nov, Paranoid schizophrenia, chronic condition F20.0 ; Mild intellectual disabilities F70 and High risk medication use Z79.899 [facility] [address], [place] [address] Oct, [facility] [address], [place] [address] Oct, [facility] [address], [place] [address] Oct, [facility] [address], [place] [address] Oct, [facility] [address], [place] [address] Aug, [facility] [address], [place] [address] Jun, Paranoid schizophrenia, chronic condition F20.0 ; High risk medication use Z79.899 and Mild intellectual disabilities F70 [facility] [address] [place] [address] Apr, High risk medication use Z79.899 ; Paranoid schizophrenia, chronic condition F20.0 and Mild intellectual disabilities F70 [facility] [address] [address] Apr, Encounter for dental examination Z01.20 [facility] [id number] [place] [address] Apr, [facility] [id number] [place] [address] Mar, Paranoid schizophrenia, chronic condition F20.0 ; Mildly mentally retarded F70 and High risk medication use Z79.899 [facility] [id number] [place] [address] Feb, Paranoid schizophrenia F20.0 [facility] [id number] [place] [address] Dec, [facility] [id number] [place] [address] Dec, Paranoid schizophrenia, chronic condition F20.0 and Mild mental retardation F70 [facility] [id number] [place] [address] Dec, [facility] [id number] [place] [address] Dec, [facility] [id number] [place] [address] Dec, [facility] [id number] [place] [address] Dec, High risk medication use Z79.899 and Hyperlipemia E78.5 [facility] [id number] [place] [address] Nov, [facility] [address], [place] [address] Sep, [facility] [place] [facility] [address], [place] [address] Sep, Paranoid schizophrenia, chronic condition 295.32 and Mild mental retardation 317 [facility] [place] [facility] [address], [place] [address] Jun, [facility] [place] [facility] [address] [facility] [id number], [place] [address] Jun, [facility] [place] [facility] [id number] [place] [address] Apr, [facility] [place] [facility] [id number] [place] [address] Apr, [facility] [place] [facility] [address], [place] [address] Apr, [facility] [place] [facility] [address], [place] [address] Apr, [facility] [place] [facility] [address], [place] [address] Apr, [facility] [place] [facility] [address], [place] [address] Apr, [facility] [place] [facility] [address], [place] [address] Mar, [facility] [place] [facility] [id number], [place] [address] Mar, [facility] [place] [facility] [address], [place] [address] Mar, [facility] [place] [facility] [address], [place] [address] Mar, [facility] [place] [facility] [address], [place] [address] Mar, [facility] [place] [facility] [address] [id number] [place] [address] Mar, [facility] [place] [facility] [address] [id number] [place] [address] Feb, [facility] [place] [facility] [address] [facility] [id number] [place] [address] Feb, [facility] [place] [facility] [address] [id number] [place] [address] Jan, [facility] [place] [facility] [address] [id number] [place] [address] Jan, [facility] [place] [facility] [address] [id number] [place] [address] Jan, [facility] [place] [facility] [address] [facility] [id number], [place] [address] Jan, [facility] [place] [facility] [address] [id number] [place] [address] Jan, [facility] [place] [facility] [address] [facility] [id number] [place] [address] Jan, [facility] [place] [facility] [address] [facility] [id number], [place] [address] Jan, [facility] [place] [facility] [address] [id number], [place] [address] Dec, [facility] [place] [facility] [address] [id number], [place] [address] Dec, [facility] [place] [facility] [address] [id number], [place] [address] Dec, [facility] [place] [facility] [address] [facility] [id number], [place] [address] Dec, [facility] [place] [facility] [address] [facility] [id number], [place] [address] Dec, [facility] [place] [facility] [address] [id number] [place] [address] Dec, [facility] [place] [facility] [address] [id number] [place] [address] Dec, [facility] [place] [facility] [address] [id number] [place] [address] Dec, [facility] [place] [facility] [address] [id number] [place] [address] Nov, [facility] [place] [facility] [address] [id number] [place] [address] Nov, [facility] [place] [facility] [address] [id number] [place] [address] Nov, [facility] [place] [facility] [address] [id number] [place] [address] Nov, [facility] [place] [facility] [address] [id number] [place] [address] Oct, [facility] [place] [facility] [address] [id number] [place] [address] Oct, [facility] [place] [facility] [address] [id number] [place] [address] Oct, [facility] [place] [facility] [address] [id number] [place] [address] Oct, [facility] [place] [facility] [address] [id number] [place] [address] Oct, [facility] [place] [facility] [address] [id number] [place] [address] Oct, [facility] [place] [facility] [address] [id number] [place] [address] Sep, [facility] [place] [facility] [address] [id number] [place] [address] Sep, [facility] [place] [facility] [address] [id number] [place] [address] Sep, [facility] [place] [facility] [address] [id number] [place] [address] Sep, [facility] [place] [facility] [address] [id number] [place] [address] Sep, [facility] [place] [facility] [address] [id number] [place] [address] Sep, [facility] [place] [facility] [address] [id number] [place] [address] Sep, [facility] [place] [facility] [address] [id number] [place] [address] Sep, [facility] [place] [facility] [address] [id number] [place] [address] Sep, [facility] [place] [facility] [address] [id number] [place] [address] Sep, [facility] [place] [facility] [address] [id number] [place] [address] Aug, [facility] [place] [facility] [address] [id number] [place] [address] Aug, [facility] [place] [facility] [address] [id number] [place] [address] Aug, [facility] [place] [facility] [address] [id number] [place] [address] Aug, [facility] [place] [facility] [address] [id number], [place] [address] Aug, [facility] [place] [facility] [address] [id number] [place] [address] Aug, [facility] [place] [facility] [address] [id number] [place] [address] Aug, [facility] [place] [facility] [address] [id number] [place] [address] Aug, [facility] [place] [facility] [address] [id number] [place] [address] Aug, [facility] [place] [facility] [address] [id number] [place] [address] Aug, [facility] [place] [facility] [address] [id number] [place] [address] July, [facility] [place] [facility] [address] [id number] [place] [address] July, [facility] [place] [facility] [address] [id number] [place] [address] July, [facility] [place] [facility] [address] [id number] [place] [address] July, [facility] [place] [facility] [address] [id number] [place] [address] July, [facility] [place] [facility] [address] [id number] [place] [address] July, [facility] [place] [facility] [address] [id number] [place] [address] July, [facility] [place] [facility] [address] [id number] [place] [address] July, [facility] [place] [facility] [address] [id number] [place] [address] Jun, [facility] [place] [facility] [address] [id number] [place] [address] Jun, [facility] [place] [facility] [address] [id number] [place] [address] Jun, [facility] [place] [facility] [address] [id number] [place] [address] Jun, [facility] [place] [facility] [address] [id number] [place] [address] May, [facility] [place] [facility] [address] [id number] [place] [address] May, [facility] [place] [facility] [address] [id number] [place] [address] May, [facility] [place] [facility] [address] [id number] [place] [address] May, [facility] [place] [facility] [address] [id number] [place] [address] May, [facility] [place] [facility] [address] [id number] [place] [address] May, [facility] [place] [facility] [address] [id number] [place] [address] Apr, [facility] [place] [facility] [address] [id number] [place] [address] Apr, [facility] [place] [facility] [address] [id number] [place] [address] Apr, [facility] [place] [facility] [address] [id number] [place] [address] Apr, [facility] [place] [facility] [address] [id number] [place] [address] Apr, [facility] [place] [facility] [address] [id number] [place] [address] Apr, [facility] [place] [facility] [address] [id number] [place] [address] Apr, [facility] [place] [facility] [address] [id number] [place] [address] Apr, [facility] [place] [facility] [address] [id number] [place] [address] Apr, [facility] [place] [facility] [address] [id number] [place] [address] Apr, [facility] [place] [facility] [address] [id number] [place] [address] Mar, [facility] [place] [facility] [address] [id number] [place] [address] Mar, [facility] [address] [id number] [place] [address] Mar, [facility] [address] [id number] [place] [address] Mar, [facility] [address] [id number] [place] [address] Mar, [facility] [address] [id number] [place] [address] Mar, [facility] [address] [id number] [place] [address] Mar, [facility] [address] [id number] [place] [address] Mar, [facility] [address] [id number] [place] [address] Feb, [facility] [address] [id number] [place] [address] Feb, [facility] [address] [id number] [place] [address] Feb, [facility] [address] [id number] [place] [address] Feb, [facility] [address] [id number] [place] [address] 18 Feb, 2013 [facility] [address] [id number] [place] [address] 18 Feb, 2013 [facility] [address] [id number] [place] [address] 06 Feb, 2013 [facility] [address] [id number] [place] [address] 06 Feb, 2013 [facility] [address] [id number] [place] [address] 05 Feb, 2013 [facility] [place] [facility] [address] [id number] [place] [address] 05 Feb, 2013 [facility] [place] [facility] [address] [id number] [place] [address] Jan, [facility] [place] [facility] [address] [id number] [place] [address] Jan, [facility] [place] [facility] [address] [id number] [place] [address] Jan, [facility] [place] [facility] [address] [id number] [place] [address] Jan, [facility] [place] [facility] [address] [id number] [place] [address] 18 Jan, 2013 [facility] [place] [facility] [address] [id number] [place] [address] 15 Jan, 2013 [facility] [place] [facility] [address] [id number] [place] [address] 15 Jan, 2013 [facility] [place] [facility] [address] [id number] [place] [address] 14 Jan, 2013 [facility] [place] [facility] [address] [id number], [place] [address] 14 Jan, 2013 [facility] [place] [facility] [address] [id number], [place] [address] Jan, [facility] [place] [facility] [address] [id number], [place] [address] Jan, [facility] [place] [facility] [address] [id number] [place] [address] Jan, [facility] [place] [facility] [address] [id number], [place] [address] 05 Jan, 2013 [facility] [place] [facility] [address] [id number], [place] [address] Dec, [facility] [place] [facility] [address] [id number], [place] [address] Dec, [facility] [place] [facility] [address] [id number] [place] [address] Dec, [facility] [place] [facility] [address] [id number] [place] [address] Dec, [facility] [place] [facility] [address] [id number] [place] [address] Nov, [facility] [place] [facility] [address] [id number] [place] [address] Nov, [facility] [place] [facility] [address] [id number] [place] [address] Nov, [facility] [place] [facility] [address] [id number] [place] [address] Oct, [facility] [place] [facility] [address] [id number] [place] [address] Oct, [facility] [place] [facility] [address] [id number] [place] [address] Oct, [facility] [place] [facility] [address] [id number] [place] [address] Oct, [facility] [place] [facility] [address] [id number] [place] [address] Oct, [facility] [place] [facility] [address] [id number] [place] [address] Oct, [facility] [place] [facility] [address] [id number] [place] [address] Sep, [facility] [place] [facility] [address] [id number] [place] [address] Sep, [facility] [place] [facility] [address] [id number] [place] [address] Sep, [facility] [place] [facility] [address] [id number] [place] [address] Sep, [facility] [place] [facility] [address] [id number] [place] [address] 16 Sep, 2012 [facility] [address] [id number] [place] [address] Sep, [facility] [place] [facility] [address] [id number] [place] [address] Sep, [facility] [address] [id number] [place] [address] Sep, [facility] [address] [id number] [place] [address] Sep, [facility] [address] [id number] [place] [address] Aug, [facility] [address] [id number] [place] [address] Aug, [facility] [address] [id number] [place] [address] Aug, [facility] [address] [id number] [place] [address] Aug, [facility] [address] [id number] [place] [address] Aug, [facility] [address] [id number] [place] [address] Aug, [facility] [place] [facility] [address] [id number] [place] [address] Aug, [facility] [place] [facility] [address] [id number] [place] [address] July, [facility] [place] [facility] [address] [id number] [place] [address] July, [facility] [place] [facility] [address] [id number] [place] [address] July, [facility] [place] [facility] [address] [id number] [place] [address] Jun, [facility] [address] [id number] [place] [address] 16 Jun, 2012 [facility] [address] [id number] [place] [address] 05 Jun, 2012 [facility] [address] [id number] [place] [address] 02 Jun, 2012 [facility] [place] [facility] [address] [id number] [place] [address] 29 May, 2012 [facility] [address] [id number] [place] [address] 18 May, 2012 [facility] [place] [facility] [address] [id number] [place] [address] 18 May, 2012 [facility] [address] [id number] [place] [address] 15 May, 2012 [facility] [address] [id number] [place] [address] 14 May, 2012 [facility] [address] [id number] [place] [address] 07 May, 2012 [facility] [address] [id number] [place] [address] 06 May, 2012 [facility] [place] [facility] [address] [id number] [place] [address] 04 May, 2012 [facility] [place] [facility] [address] [id number], [place] [address] 18 Apr, 2012 [facility] [place] [facility] [address] [id number] [place] [address] Feb, [facility] [place] [facility] [address] [id number] [place] [address] Feb, [facility] [place] [facility] [address] [id number] [place] [address] Feb, [facility] [place] [facility] [address] [id number] [place] [address] 17 Feb, 2012 [facility] [place] [facility] [address] [id number] [place] [address] 13 Feb, 2012 [facility] [place] [facility] [address] [id number] [place] [address] 13 Feb, 2012 [facility] [place] [facility] [address] [id number] [place] [address] Feb, [facility] [place] [facility] [address] [id number] [place] [address] Feb, [facility] [place] [facility] [address] [id number] [place] [address] Feb, [facility] [place] [facility] [address] [id number] [place] [address] Feb, [facility] [place] [facility] [address] [id number] [place] [address] Jan, [facility] [place] [facility] [address] [id number] [place] [address] Jan, [facility] [place] [facility] [address] [id number] [place] [address] Jan, [facility] [place] [facility] [address] [facility] [id number] [place] [address] Jan, [facility] [place] [facility] [address] [id number] [place] [address] Jan, [facility] [place] [facility] [address] [id number] [place] [address] Jan, [facility] [place] [facility] [address] [id number] [place] [address] Jan, [facility] [place] [facility] [address] [id number] [place] [address] Jan, [facility] [place] [facility] [address] [id number] [place] [address] Dec, [facility] [place] [facility] [address] [id number] [place] [address] Dec, [facility] [place] [facility] [address] [id number] [place] [address] Dec, [facility] [place] [facility] [address] [id number] [place] [address] Dec, [facility] [place] [facility] [address] [id number] [place] [address] Dec, [facility] [place] [facility] [address] [id number] [place] [address] Dec, [facility] [place] [facility] [address] [id number] [place] [address] Dec, [facility] [place] [facility] [address] [id number] [place] [address] Nov, [facility] [place] [facility] [address] [id number] [place] [address] Nov, [facility] [place] [facility] [address] [id number] [place] [address] Nov, [facility] [place] [facility] [address] [id number] [place] [address] Oct, [facility] [place] [facility] [address] [id number] [place] [address] Oct, [facility] [place] [facility] [address] [id number] [place] [address] Oct, [facility] [place] [facility] [address] [id number] [place] [address] Oct, [facility] [place] [facility] [address] [id number] [place] [address] Sep, [facility] [place] [facility] [address] [id number] [place] [address] Sep, [facility] [place] [facility] [address] [id number] [place] [address] Sep, [facility] [address] [id number] [place] [address] Aug, [facility] [place] [facility] [address] [id number] [place] [address] Aug, [facility] [place] [facility] [address] [id number] [place] [address] July, [facility] [place] [facility] [address] [id number] [place] [address] July, [facility] [place] [facility] [address] [id number] [place] [address] July, [facility] [place] [facility] [address] [id number] [place] [address] Jun, [facility] [place] [facility] [address] [id number] [place] [address] Jun, [facility] [place] [facility] [address] [id number] [place] [address] May, [facility] [place] [facility] [address] [id number] [place] [address] Apr, [facility] [place] [facility] [address] [id number] [place] [address] Apr, [facility] [place] [facility] [address] [id number] [place] [address] Apr, [facility] [place] [facility] [address] [id number] [place] [address] Mar, [facility] [place] [facility] [address] [id number] [place] [address] Mar, [facility] [place] [facility] [address] [id number] [place] [address] Mar, [facility] [place] [facility] [address] [id number] [place] [address] Mar, [facility] [place] [facility] [address] [id number] [place] [address] 30 Feb, 2011 [facility] [address] [id number] [place] [address] 23 Feb, 2011 [facility] [place] [facility] [address] [id number] [place] [address] 17 Feb, 2011 [facility] [place] [facility] [address] [id number] [place] [address] 05 Feb, 2011 [facility] [place] [facility] [address] [id number] [place] [address] 30 Jan, 2011 [facility] [place] [facility] [address] [id number] [place] [address] Jan, [facility] [place] [facility] [address] [id number] [place] [address] 16 Jan, 2011 [facility] [place] [facility] [address] [id number] [place] [address] Jan, [facility] [place] [facility] [address] [id number] [place] [address] Jan, [facility] [place] [facility] [address] [id number] [place] [address] Dec, [facility] [place] [facility] [address] [id number] [place] [address] Sep, [facility] [place] [facility] [address] [id number] [place] [address] 31 Feb, 2010 [facility] [place] [facility] [address] [id number] [place] [address] 30 Feb, 2010 [facility] [place] [facility] [address] [id number] [place] [address] Feb, [facility] [place] [facility] [address] [id number] [place] [address] Dec, [facility] [place] [facility] [address] [id number] [place] [address] Dec, [facility] [id number] [place] [address] Oct, [facility] [id number] [place] [address] Aug, [facility] [id number] [place] [address] Feb, [facility] [id number] [place] [address] Feb, [facility] [id number] [place] [address] Jan, [facility] [id number] [place] [address] Jan, [facility] [id number] [place] [address] Dec, [facility] [id number] [place] [address] Dec, [facility] [id number] [place] [address] Nov, IMMUNIZATIONS No Known Immunizations SOCIAL HISTORY Never Assessed REASON FOR VISIT aleisha/yovani Wallace MA PLAN OF CARE Activity Details Follow Up 3 Months Reason: VITAL SIGNS Height 68 in 2017-07-23 Weight 182.8 lbs 2017-07-23 Heart Rate 100 bpm 2017-07-23 Respiratory Rate 20 2017-07-23 BMI 27.79 kg/m2 2017-07-23 Blood pressure systolic 120 mmHg 2017-07-23 Blood pressure diastolic 68 mmHg 2017-07-23 MEDICATIONS Medication Instructions Dosage Frequency Start Date End Date Duration Status Levetiracetam 500 MG Orally Twice a day 1 tablet 12h Active Trintellix 10 mg Orally Once a day for depression 1 tablet Mar, Active Depakote ER 500 mg Orally 1 time per day 4 Tablet Not-Taking Clonazepam 2 MG Orally at bedtime 1 tablet Oct, Not-Taking Olanzapine 10 MG Orally Once a day 1 tablet 24h Active Ranitidine 1 tab Active Metoprolol Tartrate 25 MG Orally Twice a day 1 tablet with food 12h Active Seroquel 200 mg Orally Once a day at bedtime 1 tablet Active Atorvastatin Calcium 20 MG Active Divalproex Sodium 125 MG Active Colace 100 MG Orally Once a day 1 capsule as needed 24h Active Quetiapine Fumarate 100 mg Orally In the morning 1 tablet Active Folic Acid 1 MG Orally Once a day 1 tablet 24h Active Meloxicam 15 MG Orally Once a day 1 tablet 24h Active Oxybutynin Chloride 5 MG Orally Twice a day 1 tablet 12h Active RESULTS No Results PROCEDURES Procedure Date Ordered Result Body Site [facility] VISIT ESTABLISHED PATIENT July 23, 2017 INSTRUCTIONS MEDICATIONS ADMINISTERED No Known Medications MEDICAL (GENERAL) HISTORY Type Description Date Medical History High Blood Pressure Medical History Fainting/Seizures/Epilepsy Medical History Moderate MR Medical History GERD Medical History Hyperlipidemia Medical History Paranoid Schizophrenia Medical History incontenance Medical History 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
--- OUTSIDE RECORDS SUMMARY | 2018-09-29 17:43 | XMS REPORT ---
Author [facility] Address [address] [place] [address] Care Team Providers [employer] Attendant Name Role Phone HARRY CLAUS Unavailable PROBLEMS Type Condition ICD9-CM Code GBK14-EC Code Onset Dates Condition Status SNOMED Code Problem Hyperlipemia E78.5 Active 97194611 Problem High risk medication use Z79.899 Active 031367819 Problem Seizures R56.9 Active 72379043 Problem Intermittent explosive disorder 312.34 Active 84101743 Problem Paranoid schizophrenia, chronic condition 295.32 Active 77846284 Problem Mildly mentally retarded F70 Active 35512257 Problem Constipation, unspecified constipation type K59.00 Active 64118713 Problem Severe episode of recurrent major depressive disorder, with psychotic features F33.3 Active 66409621 Problem Paranoid schizophrenia, chronic condition F20.0 Active 96724757 Problem Stress incontinence, male N39.3 Active 912605617 Problem Unsteady gait R26.81 Active 33468674 Problem Mild intellectual disabilities F70 Active 48715233 ALLERGIES No Information ENCOUNTERS Encounter Location Date Diagnosis [facility] [id number] [place] [address] Oct, [facility] [id number] [place] [address] Oct, [facility] [id number] [place] [address] July, Paranoid schizophrenia, chronic condition F20.0 and Mild intellectual disabilities F70 [facility] [id number] [place] [address] Jun, Paranoid schizophrenia, chronic condition F20.0 [facility] [id number] [place] [address] May, [facility] [id number] [place] [address] 13 Apr, 2017 Paranoid schizophrenia, chronic condition F20.0 ; Mild intellectual disabilities F70 and High risk medication use Z79.899 [facility] [id number] [place] [address] 08 Apr, 2017 [facility] [id number] [place] [address] Mar, [facility] [id number] [place] [address] Mar, [facility] [id number] [place] [address] Mar, Contusion of nose, initial encounter S00.33XA [facility] [id number] [place] [address] Mar, Paranoid schizophrenia, chronic condition F20.0 ; Severe episode of recurrent major depressive disorder, with psychotic features F33.3 and Mild intellectual disabilities F70 [facility] [id number] [place] [address] Mar, Constipation, unspecified constipation type K59.00 and Abrasion of right ear, initial encounter S00.411A [facility] [id number] [place] [address] Mar, [facility] [id number] [place] [id number] Feb, Encounter for dental examination and cleaning without abnormal findings Z01.20 [facility] [id number] [place] [address] Feb, [facility] [id number] [place] [address] Feb, Paranoid schizophrenia, chronic condition F20.0 ; Mild intellectual disabilities F70 and High risk medication use Z79.899 [place] [facility] [address] [place] [address] Jan, [facility] [id number] [place] [address] Jan, Unsteady gait R26.81 [facility] [id number] [address] Dec, Encounter for immunization Z23 [facility] [id number] [place] [address] Nov, [facility] [id number] [place] [address] Oct, Paranoid schizophrenia, chronic condition F20.0 ; Mild intellectual disabilities F70 and High risk medication use Z79.899 [facility] [id number] [place] [address] Sep, [facility] [id number] [place] [address] July, [facility] [id number] [place] [address] Jun, High risk medication use Z79.899 [facility] [id number] [place] [address] Apr, [facility] [address] [address] Apr, Paranoid schizophrenia, chronic condition F20.0 ; Mild intellectual disabilities F70 and High risk medication use Z79.899 [facility] [id number] [address] Apr, [facility] [id number] [place] [address] Feb, [facility] [id number] [place] [address] Jan, [facility] [id number] [place] [address] Jan, [facility] [address] [facility] [id number] [address] Jan, Paranoid schizophrenia, chronic condition F20.0 [facility] [id number] [address] Dec, Paranoid schizophrenia, chronic condition F20.0 ; Mild intellectual disabilities F70 and High risk medication use Z79.899 [facility] [address] [address] Dec, [facility] [id number] [address] Nov, Paranoid schizophrenia, chronic condition F20.0 ; Mild intellectual disabilities F70 and High risk medication use Z79.899 [facility] [address] [address] Oct, [facility] [id number] [address] Oct, [facility] [id number] [address] Oct, [facility] [address] [address] Oct, [facility] [address] [address] Aug, [facility] [id number] [address] Jun, Paranoid schizophrenia, chronic condition F20.0 ; High risk medication use Z79.899 and Mild intellectual disabilities F70 [facility] [id number] [address] Apr, High risk medication use Z79.899 ; Paranoid schizophrenia, chronic condition F20.0 and Mild intellectual disabilities F70 [facility] [address] [id number] Apr, Encounter for dental examination Z01.20 [facility] [address] [address] Apr, [facility] [id number] [place] [address] Mar, Paranoid schizophrenia, chronic condition F20.0 ; Mildly mentally retarded F70 and High risk medication use Z79.899 [facility] [id number] [place] [address] Feb, Paranoid schizophrenia F20.0 [facility] [id number] [place] [address] Dec, [facility] [id number] [place] [address] Dec, Paranoid schizophrenia, chronic condition F20.0 and Mild mental retardation F70 [facility] [id number] [place] [address] Dec, [facility] [id number] [place] [address] Dec, [facility] [id number] [place] [address] Dec, [facility] [address], [place] [address] Dec, High risk medication use Z79.899 and Hyperlipemia E78.5 [facility] [address] [address] Nov, [facility] [id number] [place] [address] Sep, [facility] [id number] [place] [address] Sep, Paranoid schizophrenia, chronic condition 295.32 and Mild mental retardation 317 [facility] [id number] [place] [address] 14 Jun, 2014 [facility] [place] [facility] [address] [id number] [place] [address] 13 Jun, 2014 [facility] [place] [facility] [address] [id number] [place] [address] Apr, 2014 [facility] [place] [facility] [address] [id number] [place] [address] Apr, 2014 [facility] [place] [facility] [address] [id number] [place] [address] Apr, 2014 [facility] [place] [facility] [address] [id number] [place] [address] Apr, 2014 [facility] [place] [facility] [address] [id number] [place] [address] Apr, [facility] [place] [facility] [address] [id number] [place] [address] Apr, [facility] [place] [facility] [address] [id number] [place] [address] Mar, [facility] [place] [facility] [address] [id number] [place] [address] Mar, [facility] [place] [facility] [address] [facility] [id number] [place] [address] Mar, [facility] [place] [facility] [address] [id number] [place] [address] Mar, [facility] [place] [facility] [address] [id number] [place] [address] Mar, [facility] [place] [facility] [address] [id number] [place] [address] Mar, [facility] [place] [facility] [address] [facility] [id number] [place] [address] Feb, [facility] [place] [facility] [address] [id number] [place] [address] Feb, [facility] [place] [facility] [address] [id number] [place] [address] Jan, [facility] [place] [facility] [address] [id number] [place] [address] Jan, [facility] [place] [facility] [address] [id number] [place] [address] Jan, [facility] [place] [facility] [address] [id number] [place] [address] Jan, [facility] [place] [facility] [address] [id number] [place] [address] Jan, [facility] [place] [facility] [address] [id number] [place] [address] Jan, [facility] [place] [facility] [address] [id number] [place] [address] Jan, [facility] [place] [facility] [address] [id number] [place] [address] Dec, [facility] [place] [facility] [address] [id number] [place] [address] Dec, [facility] [place] [facility] [address] [id number] [place] [address] Dec, [facility] [place] [facility] [address] [id number] [place] [address] Dec, [facility] [place] [facility] [address] [id number] [address] Dec, [facility] [place] [facility] [address] [id number] [place] [address] Dec, [facility] [place] [facility] [address] [id number] [place] [address] Dec, [facility] [place] [facility] [address] [id number], [place] [address] Dec, [facility] [place] [facility] [address] [id number], [place] [address] Nov, [facility] [place] [facility] [address] [id number] [place] [address] Nov, [facility] [place] [facility] [address] [id number] [place] [address] Nov, [facility] [place] [facility] [address] [id number] [place] [address] Nov, [facility] [place] [facility] [address] [id number] [place] [address] Oct, [facility] [place] [facility] [address] [id number] [place] [address] Oct, [facility] [place] [facility] [address] [id number] [place] [address] Oct, [facility] [place] [facility] [address] [id number] [place] [address] Oct, [facility] [place] [facility] [address] [id number] [place] [address] Oct, [facility] [place] [facility] [address] [id number] [place] [address] Oct, [facility] [place] [facility] [address] [id number] [place] [address] Sep, [facility] [place] [facility] [address] [id number] [place] [address] Sep, [facility] [place] [facility] [address] [id number] [place] [address] Sep, [facility] [place] [facility] [address] [id number] [place] [address] Sep, [facility] [place] [facility] [address] [id number] [place] [address] Sep, [facility] [place] [facility] [address] [id number] [place] [address] Sep, [facility] [place] [facility] [address] [id number] [place] [address] Sep, [facility] [place] [facility] [address] [id number] [place] [address] Sep, [facility] [place] [facility] [address] [id number] [place] [address] Sep, [facility] [place] [facility] [address] [id number] [place] [address] Sep, [facility] [place] [facility] [address] [id number] [place] [address] Aug, [facility] [place] [facility] [address] [id number] [place] [address] Aug, [facility] [place] [facility] [address] [id number] [place] [address] Aug, [facility] [place] [facility] [address] [id number] [place] [address] Aug, [facility] [place] [facility] [address] [id number] [place] [address] Aug, [facility] [place] [facility] [address] [id number] [place] [address] Aug, [facility] [place] [facility] [address] [id number] [place] [address] Aug, [facility] [place] [facility] [address] [id number] [place] [address] Aug, [facility] [place] [facility] [address] [id number] [place] [address] Aug, [facility] [place] [facility] [address] [id number] [place] [address] Aug, [facility] [place] [facility] [address] [id number] [place] [address] July, [facility] [place] [facility] [address] [id number] [place] [address] July, [facility] [place] [facility] [address] [id number] [place] [address] July, [facility] [place] [facility] [address] [id number] [place] [address] July, [facility] [place] [facility] [address] [id number] [place] [address] July, [facility] [place] [facility] [address] [id number] [place] [address] July, [facility] [place] [facility] [address] [id number] [place] [address] July, [facility] [place] [facility] [address] [id number] [place] [address] July, [facility] [place] [facility] [address] [id number] [place] [address] Jun, [facility] [place] [facility] [address] [id number] [place] [address] Jun, [facility] [place] [facility] [address] [id number] [place] [address] Jun, [facility] [place] [facility] [address] [id number] [place] [address] Jun, [facility] [place] [facility] [address] [id number] [place] [address] May, [facility] [place] [facility] [address] [id number] [place] [address] May, [facility] [place] [facility] [address] [id number] [place] [address] May, [facility] [place] [facility] [address] [id number] [place] [address] May, [facility] [place] [facility] [address] [id number] [place] [address] May, [facility] [place] [facility] [address] [id number] [place] [address] May, [facility] [place] [facility] [address] [id number] [place] [address] Apr, [facility] [place] [facility] [address] [id number] [place] [address] Apr, [facility] [place] [facility] [address] [id number] [place] [address] Apr, [facility] [place] [facility] [address] [id number] [place] [address] Apr, [facility] [place] [facility] [address] [id number] [place] [address] Apr, [facility] [place] [facility] [address] [id number] [place] [address] Apr, [facility] [place] [facility] [address] [id number] [place] [address] Apr, [facility] [place] [facility] [address] [id number] [place] [address] Apr, [facility] [place] [facility] [address] [id number] [place] [address] Apr, [facility] [place] [facility] [address] [id number] [place] [address] Apr, [facility] [place] [facility] [address] [id number] [place] [address] Mar, [facility] [place] [facility] [address] [id number] [place] [address] Mar, [facility] [place] [facility] [address] [id number] [place] [address] Mar, [facility] [place] [facility] [address] [id number] [place] [address] Mar, [facility] [place] [facility] [address] [id number] [place] [address] Mar, [facility] [place] [facility] [address] [id number] [place] [address] Mar, [facility] [place] [facility] [address] [id number] [place] [address] Mar, [facility] [place] [facility] [address] [id number] [place] [address] Mar, [facility] [place] [facility] [address] [id number] [place] [address] Feb, [facility] [place] [facility] [address] [id number] [place] [address] Feb, [facility] [place] [facility] [address] [id number] [place] [address] Feb, [facility] [place] [facility] [address] [id number] [place] [address] Feb, [facility] [place] [facility] [address] [id number] [place] [address] Feb, [facility] [place] [facility] [address] [id number] [place] [address] Feb, [facility] [place] [facility] [address] [id number] [place] [address] Feb, [facility] [place] [facility] [address] [id number], [place] [address] Feb, [facility] [place] [facility] [address] [id number], [place] [address] Feb, [facility] [place] [facility] [address] [id number] [place] [address] Feb, [facility] [place] [facility] [address] [id number] [place] [address] Jan, [facility] [place] [facility] [address] [id number] [place] [address] Jan, [facility] [place] [facility] [address] [id number] [place] [address] 20 Jan, 2013 [facility] [address] [id number] [place] [address] 20 Jan, 2013 [facility] [place] [facility] [address] [id number] [place] [address] 18 Jan, 2013 [facility] [place] [facility] [address] [id number] [place] [address] 15 Jan, 2013 [facility] [place] [facility] [address] [id number] [place] [address] 15 Jan, 2013 [facility] [place] [facility] [address] [id number] [place] [address] 14 Jan, 2013 [facility] [place] [facility] [address] [id number] [place] [address] 14 Jan, 2013 [facility] [place] [facility] [address] [id number] [place] [address] 06 Jan, 2013 [facility] [place] [facility] [address] [id number] [place] [address] 06 Jan, 2013 [facility] [place] [facility] [address] [id number] [place] [address] 05 Jan, 2013 [facility] [place] [facility] [address] [facility] [id number] [place] [address] 05 Jan, 2013 [facility] [place] [facility] [address] [id number] [place] [address] Dec, [facility] [place] [facility] [address] [id number], [place] [address] Dec, [facility] [place] [facility] [address] [id number] [place] [address] Dec, [facility] [place] [facility] [address] [id number] [place] [address] Dec, [facility] [place] [facility] [address] [id number], [place] [address] 27 Nov, 2012 [facility] [place] [facility] [address] [id number] [place] [address] Nov, [facility] [place] [facility] [address] [id number] [place] [address] Nov, [facility] [place] [facility] [address] [id number] [place] [address] Oct, [facility] [place] [facility] [address] [id number] [place] [address] Oct, [facility] [place] [facility] [address] [id number] [place] [address] Oct, [facility] [place] [facility] [address] [id number] [place] [address] Oct, [facility] [place] [facility] [address] [id number] [place] [address] Oct, [facility] [place] [facility] [address] [id number] [place] [address] Oct, [facility] [place] [facility] [address] [id number] [place] [address] Sep, [facility] [place] [facility] [address] [id number] [place] [address] Sep, [facility] [place] [facility] [address] [id number] [place] [address] Sep, [facility] [place] [facility] [address] [id number] [place] [address] Sep, [facility] [place] [facility] [address] [id number] [place] [address] Sep, [facility] [place] [facility] [address] [id number] [place] [address] Sep, [facility] [place] [facility] [address] [id number] [place] [address] Sep, [facility] [place] [facility] [address] [id number] [place] [address] Sep, [facility] [address] [id number] [place] [address] Sep, [facility] [place] [facility] [address] [id number] [place] [address] Aug, [facility] [place] [facility] [address] [id number] [place] [address] Aug, [facility] [place] [facility] [address] [id number] [place] [address] Aug, [facility] [place] [facility] [address] [id number] [place] [address] Aug, [facility] [place] [facility] [address] [id number] [place] [address] Aug, [facility] [place] [facility] [address] [id number] [place] [address] Aug, [facility] [place] [facility] [address] [id number] [place] [address] Aug, [facility] [place] [facility] [address] [id number] [place] [address] July, [facility] [place] [facility] [address] [id number] [place] [address] July, [facility] [place] [facility] [address] [id number] [place] [address] July, [facility] [place] [facility] [address] [id number] [place] [address] Jun, [facility] [place] [facility] [address] [id number] [place] [address] Jun, [facility] [place] [facility] [address] [id number] [place] [address] Jun, [facility] [place] [facility] [address] [id number] [place] [address] Jun, [facility] [place] [facility] [address] [id number] [place] [address] 29 May, 2012 [facility] [address] [id number] [place] [address] 18 May, 2012 [facility] [address] [id number] [place] [address] 18 May, 2012 [facility] [address] [id number] [place] [address] 15 May, 2012 [facility] [address] [id number] [place] [address] 14 May, 2012 [facility] [address] [id number] [place] [address] 07 May, 2012 [facility] [address] [id number] [place] [address] 06 May, 2012 [facility] [address] [id number] [place] [address] 04 May, 2012 [facility] [address] [id number] [place] [address] 18 Apr, 2012 [facility] [address] [id number] [place] [address] 17 Feb, 2012 [facility] [address] [id number] [place] [address] 17 Feb, 2012 [facility] [address] [id number] [place] [address] 17 Feb, 2012 [facility] [address] [id number] [place] [id number] 17 Feb, 2012 [facility] [address] [id number] [place] [address] 13 Feb, 2012 [facility] [address] [id number] [place] [address] 13 Feb, 2012 [facility] [address] [id number] [place] [address] Feb, [facility] [place] [facility] [address] [id number] [place] [address] Feb, [facility] [place] [facility] [address] [id number] [place] [address] Feb, [facility] [place] [facility] [address] [id number] [place] [address] Feb, [facility] [place] [facility] [address] [id number] [place] [address] Jan, [facility] [place] [facility] [address] [id number] [place] [address] Jan, [facility] [place] [facility] [address] [id number] [place] [address] Jan, [facility] [place] [facility] [address] [id number] [place] [address] Jan, [facility] [place] [facility] [address] [id number], [place] [address] Jan, [facility] [place] [facility] [address] [id number] [place] [address] Jan, [facility] [place] [facility] [address] [facility] [id number], [place] [address] Jan, [facility] [place] [facility] [address] [id number], [place] [address] Jan, [facility] [place] [facility] [address] [id number], [place] [address] Dec, [facility] [place] [facility] [address] [id number], [place] [address] Dec, [facility] [place] [facility] [address] [id number], [place] [address] Dec, [facility] [place] [facility] [address] [facility] [id number], [place] [address] Dec, [facility] [place] [facility] [address] [id number], [place] [address] Dec, [facility] [place] [facility] [address] [id number] [place] [address] Dec, [facility] [place] [facility] [address] [id number] [place] [address] Dec, [facility] [place] [facility] [address] [id number] [place] [address] Nov, [facility] [place] [facility] [address] [id number] [place] [address] Nov, [facility] [place] [facility] [address] [id number] [place] [address] Nov, [facility] [place] [facility] [address] [id number] [place] [address] Oct, [facility] [place] [facility] [address] [id number] [place] [address] Oct, [facility] [place] [facility] [address] [id number] [place] [address] Oct, [facility] [place] [facility] [address] [id number] [place] [address] Oct, [facility] [place] [facility] [address] [id number] [place] [address] Sep, [facility] [place] [facility] [address] [id number] [place] [address] Sep, [facility] [place] [facility] [address] [id number] [place] [address] Sep, [facility] [place] [facility] [address] [id number] [place] [address] Aug, [facility] [place] [facility] [address] [id number] [place] [address] Aug, [facility] [place] [facility] [address] [facility] [id number] [place] [address] July, [facility] [place] [facility] [address] [id number] [place] [address] July, [facility] [place] [facility] [address] [id number] [place] [address] July, [facility] [place] [facility] [address] [id number] [place] [address] Jun, [facility] [place] [facility] [address] [id number] [place] [address] Jun, [facility] [place] [facility] [address] [id number] [place] [address] May, [facility] [place] [facility] [address] [id number] [place] [address] Apr, [facility] [place] [facility] [address] [id number] [place] [address] Apr, [facility] [place] [facility] [address] [id number] [place] [address] Apr, [facility] [place] [facility] [address] [id number] [place] [address] Mar, [facility] [place] [facility] [address] [id number] [place] [address] Mar, [facility] [place] [facility] [address] [id number] [place] [address] Mar, [facility] [place] [facility] [address] [id number] [place] [address] Mar, [facility] [place] [facility] [address] [id number] [place] [address] Feb, [facility] [place] [facility] [address] [id number] [place] [address] Feb, [facility] [place] [facility] [address] [id number] [place] [address] Feb, [facility] [place] [facility] [address] [id number] [place] [address] 05 Feb, 2011 [facility] [place] [facility] [address] [id number] [place] [address] 30 Jan, 2011 [facility] [place] [facility] [address] [id number] [place] [address] 17 Jan, 2011 [facility] [place] [facility] [address] [id number] [place] [address] 16 Jan, 2011 [facility] [place] [facility] [address] [id number] [place] [address] 16 Jan, 2011 [facility] [place] [facility] [address] [id number] [place] [address] Jan, [facility] [place] [facility] [address] [id number] [place] [address] Dec, [facility] [place] [facility] [address] [id number] [place] [address] Sep, [facility] [place] [facility] [address] [id number] [place] [address] 31 Feb, 2010 [facility] [place] [facility] [address] [id number] [place] [address] 30 Feb, 2010 [facility] [place] [facility] [address] [id number] [place] [address] Feb, [facility] [place] [facility] [address] [id number], [place] [address] 29 Dec, 2009 [facility] [place] [facility] [address] [id number], [place] [address] Dec, [facility] [place] [facility] [address] [id number] [place] [address] Oct, [facility] [place] [facility] [address] [id number] [place] [address] 15 Aug, 2009 [facility] [place] [facility] [address] [id number] [place] [address] 15 Feb, 2009 [facility] [place] [facility] [address] [id number], [place] [address] Feb, [facility] [id number], [place] [address] Jan, [facility] [id number], [place] [address] Jan, [facility] [id number] [place] [address] Dec, [facility] [id number], [place] [address] Dec, [facility] [id number], [place] [address] Nov, IMMUNIZATIONS No Known Immunizations SOCIAL HISTORY Never Assessed REASON FOR VISIT update standing orders PLAN OF CARE VITAL SIGNS MEDICATIONS Unknown [...]
--- OUTSIDE RECORDS SUMMARY | 2018-09-29 17:43 | XMS REPORT ---
Author Author CLAUS MCDONALD [facility] Address [address] [place] [address] Care Team Providers Care Incident Analyst Name Role Phone HARRY CLAUS Unavailable PROBLEMS Type Condition ICD9-CM Code ZNB09-BU Code Onset Dates Condition Status SNOMED Code Problem Hyperlipemia E78.5 Active 49440235 Problem High risk medication use Z79.899 Active 126927364 Problem Seizures R56.9 Active 16021480 Problem Intermittent explosive disorder 312.34 Active 33816303 Problem Paranoid schizophrenia, chronic condition 295.32 Active 48761995 Problem Mildly mentally retarded F70 Active 78844027 Problem Constipation, unspecified constipation type K59.00 Active 14277927 Problem Severe episode of recurrent major depressive disorder, with psychotic features F33.3 Active 97803628 Problem Paranoid schizophrenia, chronic condition F20.0 Active 60523737 Problem Stress incontinence, male N39.3 Active 653772499 Problem Unsteady gait R26.81 Active 03381163 Problem Mild intellectual disabilities F70 Active 80176403 ALLERGIES No Information ENCOUNTERS Encounter Location Date Diagnosis [facility] [id number] [place] [address] Oct, [facility] [id number] [place] [address] Oct, [facility] [id number] [place] [address] July, Paranoid schizophrenia, chronic condition F20.0 and Mild intellectual disabilities F70 [facility] [id number] [place] [address] Jun, Paranoid schizophrenia, chronic condition F20.0 [facility] [id number] [place] [address] May, [facility] [id number] [place] [address] 13 Apr, 2017 Paranoid schizophrenia, chronic condition F20.0 ; Mild intellectual disabilities F70 and High risk medication use Z79.899 [facility] [id number] [place] [address] 08 Apr, 2017 [facility] [id number] [place] [address] Mar, [facility] [id number] [place] [address] Mar, [facility] [id number] [place] [address] Mar, Contusion of nose, initial encounter S00.33XA [facility] [facility] [id number] [place] [address] Mar, Paranoid schizophrenia, chronic condition F20.0 ; Severe episode of recurrent major depressive disorder, with psychotic features F33.3 and Mild intellectual disabilities F70 [facility] [id number] [place] [address] Mar, Constipation, unspecified constipation type K59.00 and Abrasion of right ear, initial encounter S00.411A [facility] [facility] [id number] [place] [address] Mar, [facility] [id number] [place] [id number] Feb, Encounter for dental examination and cleaning without abnormal findings Z01.20 [facility] [id number] [place] [address] Feb, [facility] [id number] [place] [address] Feb, Paranoid schizophrenia, chronic condition F20.0 ; Mild intellectual disabilities F70 and High risk medication use Z79.899 [place] [address] [place] [address] Jan, [facility] [id number] [place] [address] Jan, Unsteady gait R26.81 [facility] [id number] [address] Dec, Encounter for immunization Z23 [facility] [id number] [place] [address] Nov, [facility] [id number] [place] [address] Oct, Paranoid schizophrenia, chronic condition F20.0 ; Mild intellectual disabilities F70 and High risk medication use Z79.899 [facility] [id number] [place] [address] Sep, [facility] [id number] [place] [address] July, [facility] [id number] [place] [address] Jun, High risk medication use Z79.899 [facility] [id number] [place] [address] Apr, [facility] [address] [address] Apr, Paranoid schizophrenia, chronic condition F20.0 ; Mild intellectual disabilities F70 and High risk medication use Z79.899 [facility] [id number] [address] Apr, [facility] [id number] [place] [address] Feb, [facility] [id number] [place] [address] Jan, [facility] [id number] [place] [address] Jan, [facility] [address] [facility] [id number] [address] Jan, Paranoid schizophrenia, chronic condition F20.0 [facility] [id number] [address] Dec, Paranoid schizophrenia, chronic condition F20.0 ; Mild intellectual disabilities F70 and High risk medication use Z79.899 [facility] [address] [address] Dec, [facility] [id number] [address] Nov, Paranoid schizophrenia, chronic condition F20.0 ; Mild intellectual disabilities F70 and High risk medication use Z79.899 [facility] [address] [address] Oct, [facility] [id number] [address] Oct, [facility] [id number] [address] Oct, [facility] [address] [address] Oct, [facility] [address] [address] Aug, [facility] [id number] [address] Jun, Paranoid schizophrenia, chronic condition F20.0 ; High risk medication use Z79.899 and Mild intellectual disabilities F70 [facility] [id number] [address] Apr, High risk medication use Z79.899 ; Paranoid schizophrenia, chronic condition F20.0 and Mild intellectual disabilities F70 [facility] [address] [id number] Apr, Encounter for dental examination Z01.20 [facility] [address] [address] Apr, [facility] [id number] [place] [address] Mar, Paranoid schizophrenia, chronic condition F20.0 ; Mildly mentally retarded F70 and High risk medication use Z79.899 [facility] [id number] [place] [address] Feb, Paranoid schizophrenia F20.0 [facility] [id number] [place] [address] Dec, [facility] [id number] [place] [address] Dec, Paranoid schizophrenia, chronic condition F20.0 and Mild mental retardation F70 [facility] [id number] [place] [address] Dec, [facility] [address] [place] [address] Dec, [facility] [id number] [place] [address] Dec, [facility] [address] [address] Dec, High risk medication use Z79.899 and Hyperlipemia E78.5 [facility] [address] [address] Nov, [facility] [id number] [place] [address] Sep, [facility] [address] [place] [address] Sep, Paranoid schizophrenia, chronic condition 295.32 and Mild mental retardation 317 [facility] [id number] [place] [address] 14 Jun, 2014 [facility] [place] [facility] [address] [id number] [place] [address] 13 Jun, 2014 [facility] [place] [facility] [address] [id number] [place] [address] Apr, 2014 [facility] [place] [facility] [address] [id number] [place] [address] Apr, 2014 [facility] [place] [facility] [address] [id number] [place] [address] Apr, 2014 [facility] [place] [facility] [address] [id number] [place] [address] Apr, 2014 [facility] [place] [facility] [address] [id number] [place] [address] Apr, [facility] [place] [facility] [address] [id number] [place] [address] Apr, [facility] [place] [facility] [address] [id number] [place] [address] Mar, [facility] [place] [facility] [address] [id number] [place] [address] Mar, [facility] [place] [facility] [address] [facility] [id number] [place] [address] Mar, [facility] [place] [facility] [address] [id number] [place] [address] Mar, [facility] [place] [facility] [address] [id number] [place] [address] Mar, [facility] [place] [facility] [address] [id number] [place] [address] Mar, [facility] [place] [facility] [address] [facility] [id number] [place] [address] Feb, [facility] [place] [facility] [address] [id number] [place] [address] Feb, [facility] [place] [facility] [address] [id number] [place] [address] Jan, [facility] [place] [facility] [address] [id number] [place] [address] Jan, [facility] [place] [facility] [address] [id number] [place] [address] Jan, [facility] [place] [facility] [address] [id number] [place] [address] Jan, [facility] [place] [facility] [address] [id number] [place] [address] Jan, [facility] [place] [facility] [address] [id number] [place] [address] Jan, [facility] [place] [facility] [address] [id number] [place] [address] Jan, [facility] [place] [facility] [address] [id number] [place] [address] Dec, [facility] [place] [facility] [address] [id number] [place] [address] Dec, [facility] [place] [facility] [address] [id number] [place] [address] Dec, [facility] [place] [facility] [address] [id number] [place] [address] Dec, [facility] [place] [facility] [address] [id number], [place] [address] Dec, [facility] [place] [facility] [address] [id number] [place] [address] Dec, [facility] [place] [facility] [address] [id number] [place] [address] Dec, [facility] [place] [facility] [address] [id number] [address] Dec, [facility] [place] [facility] [address] [id number], [place] [address] Nov, [facility] [place] [facility] [address] [id number] [place] [address] Nov, [facility] [place] [facility] [address] [id number] [place] [address] Nov, [facility] [place] [facility] [address] [id number] [place] [address] Nov, [facility] [place] [facility] [address] [id number] [place] [address] Oct, [facility] [place] [facility] [address] [id number] [place] [address] Oct, [facility] [place] [facility] [address] [id number] [place] [address] Oct, [facility] [place] [facility] [address] [id number] [place] [address] Oct, [facility] [place] [facility] [address] [id number] [place] [address] Oct, [facility] [place] [facility] [address] [id number] [place] [address] Oct, [facility] [place] [facility] [address] [id number] [place] [address] Sep, [facility] [place] [facility] [address] [id number] [place] [address] Sep, [facility] [place] [facility] [address] [id number] [place] [address] Sep, [facility] [place] [facility] [address] [id number] [place] [address] Sep, [facility] [place] [facility] [address] [id number] [place] [address] Sep, [facility] [place] [facility] [address] [id number] [place] [address] Sep, [facility] [place] [facility] [address] [id number] [place] [address] Sep, [facility] [place] [facility] [address] [id number] [place] [address] Sep, [facility] [place] [facility] [address] [id number] [place] [address] Sep, [facility] [place] [facility] [address] [id number] [place] [address] Sep, [facility] [place] [facility] [address] [id number] [place] [address] Aug, [facility] [place] [facility] [address] [id number] [place] [address] Aug, [facility] [place] [facility] [address] [id number] [place] [address] Aug, [facility] [place] [facility] [address] [id number] [place] [address] Aug, [facility] [place] [facility] [address] [id number] [place] [address] Aug, [facility] [place] [facility] [address] [id number] [place] [address] Aug, [facility] [place] [facility] [address] [id number] [place] [address] Aug, [facility] [place] [facility] [address] [id number] [place] [address] Aug, [facility] [place] [facility] [address] [id number] [place] [address] Aug, [facility] [place] [facility] [address] [id number] [place] [address] Aug, [facility] [place] [facility] [address] [id number] [place] [address] July, [facility] [place] [facility] [address] [id number] [place] [address] July, [facility] [place] [facility] [address] [id number] [place] [address] July, [facility] [place] [facility] [address] [id number] [place] [address] July, [facility] [place] [facility] [address] [id number] [place] [address] July, [facility] [place] [facility] [address] [id number] [place] [address] July, [facility] [place] [facility] [address] [id number] [place] [address] July, [facility] [place] [facility] [address] [id number] [place] [address] July, [facility] [place] [facility] [address] [id number] [place] [address] Jun, [facility] [place] [facility] [address] [id number] [place] [address] Jun, [facility] [place] [facility] [address] [id number] [place] [address] Jun, [facility] [place] [facility] [address] [id number] [place] [address] Jun, [facility] [place] [facility] [address] [id number] [place] [address] May, [facility] [place] [facility] [address] [id number] [place] [address] May, [facility] [place] [facility] [address] [id number] [place] [address] May, [facility] [place] [facility] [address] [id number] [place] [address] May, [facility] [place] [facility] [address] [id number] [place] [address] May, [facility] [place] [facility] [address] [id number] [place] [address] May, [facility] [place] [facility] [address] [id number] [place] [address] Apr, [facility] [place] [facility] [address] [id number] [place] [address] Apr, [facility] [place] [facility] [address] [id number] [place] [address] Apr, [facility] [place] [facility] [address] [id number] [place] [address] Apr, [facility] [place] [facility] [address] [id number] [place] [address] Apr, [facility] [place] [facility] [address] [id number] [place] [address] Apr, [facility] [place] [facility] [address] [id number] [place] [address] Apr, [facility] [place] [facility] [address] [id number] [place] [address] Apr, [facility] [place] [facility] [address] [id number] [place] [address] Apr, [facility] [place] [facility] [address] [id number] [place] [address] Apr, [facility] [place] [facility] [address] [id number] [place] [address] Mar, [facility] [place] [facility] [address] [id number] [place] [address] Mar, [facility] [place] [facility] [address] [id number] [place] [address] Mar, [facility] [place] [facility] [address] [id number] [place] [address] Mar, [facility] [place] [facility] [address] [id number] [place] [address] Mar, [facility] [place] [facility] [address] [id number] [place] [address] Mar, [facility] [place] [facility] [address] [id number] [place] [address] Mar, [facility] [place] [facility] [address] [id number] [place] [address] Mar, [facility] [place] [facility] [address] [id number] [place] [address] Feb, [facility] [place] [facility] [address] [id number] [place] [address] Feb, [facility] [place] [facility] [address] [id number] [place] [address] Feb, [facility] [place] [facility] [address] [id number] [place] [address] Feb, [facility] [place] [facility] [address] [id number] [place] [address] Feb, [facility] [place] [facility] [address] [id number] [place] [address] Feb, [facility] [place] [facility] [address] [id number] [place] [address] Feb, [facility] [place] [facility] [address] [id number], [place] [address] Feb, [facility] [place] [facility] [address] [id number], [place] [address] Feb, [facility] [place] [facility] [address] [id number] [place] [address] Feb, [facility] [place] [facility] [address] [id number] [place] [address] Jan, [facility] [place] [facility] [address] [id number] [place] [address] Jan, [facility] [place] [facility] [address] [id number] [place] [address] 20 Jan, 2013 [facility] [address] [id number] [place] [address] 20 Jan, 2013 [facility] [place] [facility] [address] [id number] [place] [address] 18 Jan, 2013 [facility] [place] [facility] [address] [id number] [place] [address] 15 Jan, 2013 [facility] [place] [facility] [address] [id number] [place] [address] 15 Jan, 2013 [facility] [place] [facility] [address] [id number] [place] [address] 14 Jan, 2013 [facility] [place] [facility] [address] [id number] [place] [address] 14 Jan, 2013 [facility] [place] [facility] [address] [id number] [place] [address] 06 Jan, 2013 [facility] [place] [facility] [address] [id number] [place] [address] 06 Jan, 2013 [facility] [place] [facility] [address] [id number] [place] [address] 05 Jan, 2013 [facility] [place] [facility] [address] [facility] [id number] [place] [address] 05 Jan, 2013 [facility] [place] [facility] [address] [id number] [place] [address] Dec, [facility] [place] [facility] [address] [id number], [place] [address] Dec, [facility] [place] [facility] [address] [id number] [place] [address] Dec, [facility] [place] [facility] [address] [id number] [place] [address] Dec, [facility] [place] [facility] [address] [id number], [place] [address] 27 Nov, 2012 [facility] [place] [facility] [address] [id number] [place] [address] Nov, [facility] [place] [facility] [address] [id number] [place] [address] Nov, [facility] [place] [facility] [address] [id number] [place] [address] Oct, [facility] [place] [facility] [address] [id number] [place] [address] Oct, [facility] [place] [facility] [address] [id number] [place] [address] Oct, [facility] [place] [facility] [address] [id number] [place] [address] Oct, [facility] [place] [facility] [address] [id number] [place] [address] Oct, [facility] [place] [facility] [address] [id number] [place] [address] Oct, [facility] [place] [facility] [address] [id number] [place] [address] Sep, [facility] [place] [facility] [address] [id number] [place] [address] Sep, [facility] [place] [facility] [address] [id number] [place] [address] Sep, [facility] [place] [facility] [address] [id number] [place] [address] Sep, [facility] [place] [facility] [address] [id number] [place] [address] Sep, [facility] [place] [facility] [address] [id number] [place] [address] Sep, [facility] [place] [facility] [address] [id number] [place] [address] Sep, [facility] [place] [facility] [address] [id number] [place] [address] Sep, [facility] [address] [id number] [place] [address] Sep, [facility] [place] [facility] [address] [id number] [place] [address] Aug, [facility] [place] [facility] [address] [id number] [place] [address] Aug, [facility] [place] [facility] [address] [id number] [place] [address] Aug, [facility] [place] [facility] [address] [id number] [place] [address] Aug, [facility] [place] [facility] [address] [id number] [place] [address] Aug, [facility] [place] [facility] [address] [id number] [place] [address] Aug, [facility] [place] [facility] [address] [id number] [place] [address] Aug, [facility] [place] [facility] [address] [id number] [place] [address] July, [facility] [place] [facility] [address] [id number] [place] [address] July, [facility] [place] [facility] [address] [id number] [place] [address] July, [facility] [place] [facility] [address] [id number] [place] [address] Jun, [facility] [place] [facility] [address] [id number] [place] [address] Jun, [facility] [place] [facility] [address] [id number] [place] [address] Jun, [facility] [place] [facility] [address] [id number] [place] [address] Jun, [facility] [place] [facility] [address] [id number] [place] [address] 29 May, 2012 [facility] [address] [id number] [place] [address] 18 May, 2012 [facility] [address] [id number] [place] [address] 18 May, 2012 [facility] [address] [id number] [place] [address] 15 May, 2012 [facility] [address] [id number] [place] [address] 14 May, 2012 [facility] [address] [id number] [place] [address] 07 May, 2012 [facility] [address] [id number] [place] [address] 06 May, 2012 [facility] [address] [id number] [place] [address] 04 May, 2012 [facility] [address] [id number] [place] [address] 18 Apr, 2012 [facility] [address] [id number] [place] [address] 17 Feb, 2012 [facility] [address] [id number] [place] [address] 17 Feb, 2012 [facility] [address] [id number] [place] [address] 17 Feb, 2012 [facility] [address] [id number] [place] [address] 17 Feb, 2012 [facility] [address] [id number] [place] [address] 13 Feb, 2012 [facility] [address] [id number] [place] [address] 13 Feb, 2012 [facility] [address] [id number] [place] [address] Feb, [facility] [place] [facility] [address] [id number] [place] [address] Feb, [facility] [place] [facility] [address] [id number] [place] [address] Feb, [facility] [place] [facility] [address] [id number] [place] [address] Feb, [facility] [place] [facility] [address] [id number] [place] [address] Jan, [facility] [place] [facility] [address] [id number] [place] [address] Jan, [facility] [place] [facility] [address] [id number] [place] [address] Jan, [facility] [place] [facility] [address] [id number] [place] [address] Jan, [facility] [place] [facility] [address] [id number], [place] [address] Jan, [facility] [place] [facility] [address] [id number] [place] [address] Jan, [facility] [place] [facility] [address] [facility] [id number], [place] [address] Jan, [facility] [place] [facility] [address] [id number], [place] [address] Jan, [facility] [place] [facility] [address] [id number], [place] [address] Dec, [facility] [place] [facility] [address] [id number], [place] [address] Dec, [facility] [place] [facility] [address] [id number], [place] [address] Dec, [facility] [place] [facility] [address] [facility] [id number], [place] [address] Dec, [facility] [place] [facility] [address] [id number], [place] [address] Dec, [facility] [place] [facility] [address] [id number] [place] [address] Dec, [facility] [place] [facility] [address] [id number] [place] [address] Dec, [facility] [place] [facility] [address] [id number] [place] [address] Nov, [facility] [place] [facility] [address] [id number] [place] [address] Nov, [facility] [place] [facility] [address] [id number] [place] [address] Nov, [facility] [place] [facility] [address] [id number] [place] [address] Oct, [facility] [place] [facility] [address] [id number] [place] [address] Oct, [facility] [place] [facility] [address] [id number] [place] [address] Oct, [facility] [place] [facility] [address] [id number] [place] [address] Oct, [facility] [place] [facility] [address] [id number] [place] [address] Sep, [facility] [place] [facility] [address] [id number] [place] [address] Sep, [facility] [place] [facility] [address] [id number] [place] [address] Sep, [facility] [place] [facility] [address] [id number] [place] [address] Aug, [facility] [place] [facility] [address] [id number] [place] [address] Aug, [facility] [place] [facility] [address] [facility] [id number] [place] [address] July, [facility] [place] [facility] [address] [id number] [place] [address] July, [facility] [place] [facility] [address] [id number] [place] [address] July, [facility] [place] [facility] [address] [id number] [place] [address] Jun, [facility] [place] [facility] [address] [id number] [place] [address] Jun, [facility] [place] [facility] [address] [id number] [place] [address] May, [facility] [place] [facility] [address] [id number] [place] [address] Apr, [facility] [place] [facility] [address] [id number] [place] [address] Apr, [facility] [place] [facility] [address] [id number] [place] [address] Apr, [facility] [place] [facility] [address] [id number] [place] [address] Mar, [facility] [place] [facility] [address] [id number] [place] [address] Mar, [facility] [place] [facility] [address] [id number] [place] [address] Mar, [facility] [place] [facility] [address] [id number] [place] [address] Mar, [facility] [place] [facility] [address] [id number] [place] [address] Feb, [facility] [place] [facility] [address] [id number] [place] [address] Feb, [facility] [place] [facility] [address] [id number] [place] [address] Feb, [facility] [place] [facility] [address] [id number] [place] [address] 05 Feb, 2011 [facility] [place] [facility] [address] [id number] [place] [address] 30 Jan, 2011 [facility] [place] [facility] [address] [id number] [place] [address] 17 Jan, 2011 [facility] [place] [facility] [address] [id number] [place] [address] 16 Jan, 2011 [facility] [place] [facility] [address] [id number] [place] [address] 16 Jan, 2011 [facility] [place] [facility] [address] [id number] [place] [address] Jan, [facility] [place] [facility] [address] [id number] [place] [address] Dec, [facility] [place] [facility] [address] [id number] [place] [address] Sep, [facility] [place] [facility] [address] [id number] [place] [address] 31 Feb, 2010 [facility] [place] [facility] [address] [id number] [place] [address] 30 Feb, 2010 [facility] [place] [facility] [address] [id number] [place] [address] Feb, [facility] [place] [facility] [address] [id number], [place] [address] 29 Dec, 2009 [facility] [place] [facility] [address] [id number], [place] [address] Dec, [facility] [place] [facility] [address] [id number] [place] [address] Oct, [facility] [place] [facility] [address] [id number] [place] [address] 15 Aug, 2009 [facility] [place] [facility] [address] [id number] [place] [address] 15 Feb, 2009 [facility] [place] [facility] [address] [id number] [address] Feb, [facility] [id number], [place] [address] Jan, [facility] [id number], [place] [address] Jan, [facility] [id number], [place] [address] Dec, [facility] [id number], [place] [address] Dec, [facility] [id number], [place] [address] Nov, IMMUNIZATIONS No Known Immunizations SOCIAL HISTORY Never Assessed REASON FOR VISIT Requests return call PLAN OF CARE VITAL SIGNS MEDICATIONS Unknown [...]
--- OUTSIDE RECORDS SUMMARY | 2018-09-29 17:44 | XMS REPORT ---
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 Name Role Phone HARRY CLAUS Unavailable PROBLEMS Type Condition ICD9-CM Code UBW43-IW Code Onset Dates Condition Status SNOMED Code Problem Hyperlipemia E78.5 Active 75758711 Problem High risk medication use Z79.899 Active 124731809 Problem Seizures R56.9 Active 79129775 Problem Intermittent explosive disorder 312.34 Active 37095484 Problem Paranoid schizophrenia, chronic condition 295.32 Active 44822676 Problem Mildly mentally retarded F70 Active 30238303 Problem Constipation, unspecified constipation type K59.00 Active 65070530 Problem Severe episode of recurrent major depressive disorder, with psychotic features F33.3 Active 22160440 Problem Paranoid schizophrenia, chronic condition F20.0 Active 24794747 Problem Stress incontinence, male N39.3 Active 104598981 Problem Unsteady gait R26.81 Active 93247004 Problem Mild intellectual disabilities F70 Active 98407011 ALLERGIES Substance Reaction Event Type Date Status Prozac Unknown Drug Allergy Apr, Active ENCOUNTERS Encounter Location Date Diagnosis [facility] [id number] [address] Oct, [facility] [id number] [place] [address] Sep, [facility] [id number] [place] [address] July, Paranoid schizophrenia, chronic condition F20.0 and Mild intellectual disabilities F70 [facility] [address] [address] Jun, Paranoid schizophrenia, chronic condition F20.0 [facility] [id number] [place] [address] 15 May, 2017 [facility] [id number] [place] [address] 13 Apr, 2017 Paranoid schizophrenia, chronic condition F20.0 ; Mild intellectual disabilities F70 and High risk medication use Z79.899 [facility] [id number] [place] [address] 08 Apr, 2017 [facility] [id number] [place] [address] Mar, [place] [id number] [place] [address] Mar, [facility] [id number] [place] [address] Mar, Contusion of nose, initial encounter S00.33XA [place] [id number] [place] [address] Mar, Paranoid schizophrenia, chronic condition F20.0 ; Severe episode of recurrent major depressive disorder, with psychotic features F33.3 and Mild intellectual disabilities F70 [facility] [id number] [place] [address] Mar, Constipation, unspecified constipation type K59.00 and Abrasion of right ear, initial encounter S00.411A [place] [id number] [place] [address] Mar, [facility] [id number] [place] [id number] Feb, Encounter for dental examination and cleaning without abnormal findings Z01.20 [facility] [id number] [place] [address] 12 Feb, 2017 [place] [id number] [place] [address] 05 Feb, 2017 Paranoid schizophrenia, chronic condition F20.0 ; Mild intellectual disabilities F70 and High risk medication use Z79.899 [facility] [address] [address] Jan, [facility] [id number] [place] [address] Jan, Unsteady gait R26.81 [facility] [id number] [place] [address] Dec, Encounter for immunization Z23 [facility] [id number] [place] [address] Nov, [facility] [id number] [place] [address] Oct, Paranoid schizophrenia, chronic condition F20.0 ; Mild intellectual disabilities F70 and High risk medication use Z79.899 [facility] [id number] [place] [address] Sep, [facility] [id number] [place] [address] July, [facility] [id number] [place] [address] Jun, High risk medication use Z79.899 [facility] [id number] [place] [address] Apr, [facility] [id number] [place] [address] Apr, Paranoid schizophrenia, chronic condition F20.0 ; Mild intellectual disabilities F70 and High risk medication use Z79.899 [facility] [id number] [place] [address] Apr, [facility] [id number] [place] [address] Feb, [facility] [id number] [place] [address] Jan, [facility] [address] [facility] [id number] [address] Jan, [facility] [address] [facility] [id number] [place] [address] Jan, Paranoid schizophrenia, chronic condition F20.0 [facility] [id number] [address] Dec, Paranoid schizophrenia, chronic condition F20.0 ; Mild intellectual disabilities F70 and High risk medication use Z79.899 [facility] [address] [facility] [id number] [place] [address] Dec, [facility] [address] [facility] [id number] [place] [address] Nov, Paranoid schizophrenia, chronic condition F20.0 ; Mild intellectual disabilities F70 and High risk medication use Z79.899 [facility] [address] [address] Oct, [facility] [address] [facility] [id number] [address] Oct, [facility] [id number] [address] Oct, [facility] [id number] [address] Oct, [facility] [address] [address] Aug, [facility] [address] [facility] [id number] [place] [address] Jun, Paranoid schizophrenia, chronic condition F20.0 ; High risk medication use Z79.899 and Mild intellectual disabilities F70 [facility] [address] [facility] [id number] [place] [address] Apr, High risk medication use Z79.899 ; Paranoid schizophrenia, chronic condition F20.0 and Mild intellectual disabilities F70 [facility] [id number] [id number] 17 Apr, 2015 Encounter for dental examination Z01.20 [facility] [address] [address] Apr, [facility] [address] [address] Mar, Paranoid schizophrenia, chronic condition F20.0 ; Mildly mentally retarded F70 and High risk medication use Z79.899 [facility] [address] [address] Feb, Paranoid schizophrenia F20.0 [facility] [address] [address] Dec, [facility] [id number] [address] Dec, Paranoid schizophrenia, chronic condition F20.0 and Mild mental retardation F70 [facility] [address] [address] Dec, [facility] [address] [address] Dec, [facility] [address] [address] Dec, [facility] [address] [address] Dec, High risk medication use Z79.899 and Hyperlipemia E78.5 [facility] [address] [address] Nov, [facility] [address] [address] Sep, [facility] [address] [address] Sep, Paranoid schizophrenia, chronic condition 295.32 and Mild mental retardation 317 [facility] [address] [id number] [place] [address] 14 Jun, 2014 [facility] [place] [facility] [address] [id number] [place] [address] Jun, [facility] [place] [facility] [address] [id number] [place] [address] Apr, 2014 [facility] [place] [facility] [address] [id number] [place] [address] Apr, 2014 [facility] [place] [facility] [address] [id number] [place] [address] Apr, 2014 [facility] [place] [facility] [address] [id number] [place] [address] Apr, 2014 [facility] [place] [facility] [address] [facility] [id number] [place] [address] Apr, [facility] [place] [facility] [address] [facility] [id number] [place] [address] Apr, [facility] [place] [facility] [address] [facility] [id number] [place] [address] Mar, [facility] [place] [facility] [address] [facility] [id number] [place] [address] Mar, [facility] [place] [facility] [address] [facility] [id number] [place] [address] Mar, [facility] [place] [facility] [address] [facility] [id number] [place] [address] Mar, [facility] [place] [facility] [address] [facility] [id number] [place] [address] Mar, [facility] [place] [facility] [address] [facility] [id number] [place] [address] Mar, [facility] [place] [facility] [address] [facility] [id number] [place] [address] Feb, [facility] [place] [facility] [address] [id number] [place] [address] Feb, [facility] [place] [facility] [address] [id number] [place] [address] Jan, [facility] [place] [facility] [address] [id number] [place] [address] Jan, [facility] [place] [facility] [address] [id number] [place] [address] Jan, [facility] [place] [facility] [address] [id number] [place] [address] Jan, [facility] [place] [facility] [address] [id number] [place] [address] Jan, [facility] [place] [facility] [address] [id number] [place] [address] Jan, [facility] [place] [facility] [address] [id number] [place] [address] Jan, [facility] [place] [facility] [address] [id number] [place] [address] Dec, [facility] [place] [facility] [address] [id number] [place] [address] Dec, [facility] [place] [facility] [address] [id number] [place] [address] Dec, [facility] [place] [facility] [address] [id number] [place] [address] Dec, [facility] [place] [facility] [address] [id number] [place] [address] Dec, [facility] [place] [facility] [address] [id number] [place] [address] Dec, [facility] [place] [facility] [address] [id number] [place] [address] Dec, [facility] [place] [facility] [address] [id number] [place] [address] Dec, [facility] [place] [facility] [address] [id number] [place] [address] 17 Nov, 2013 [facility] [place] [facility] [address] [id number] [place] [address] 17 Nov, 2013 [facility] [place] [facility] [address] [id number] [place] [address] 15 Nov, 2013 [facility] [place] [facility] [address] [id number] [place] [address] Nov, [facility] [place] [facility] [address] [id number] [place] [address] Oct, [facility] [place] [facility] [address] [id number] [place] [address] Oct, [facility] [place] [facility] [address] [id number] [place] [address] Oct, [facility] [place] [facility] [address] [id number] [place] [address] Oct, [facility] [place] [facility] [address] [id number] [place] [address] Oct, [facility] [place] [facility] [address] [id number] [place] [address] Oct, [facility] [place] [facility] [address] [id number] [place] [address] Sep, [facility] [place] [facility] [address] [id number] [place] [address] Sep, [facility] [place] [facility] [address] [id number] [place] [address] Sep, [facility] [place] [facility] [address] [id number] [place] [address] Sep, [facility] [place] [facility] [address] [id number] [place] [address] Sep, [facility] [place] [facility] [address] [id number] [place] [address] Sep, [facility] [place] [facility] [address] [id number] [place] [address] Sep, [facility] [place] [facility] [address] [id number] [place] [address] Sep, [facility] [place] [facility] [address] [id number] [place] [address] Sep, [facility] [place] [facility] [address] [id number] [place] [address] Sep, [facility] [place] [facility] [address] [id number] [place] [address] Aug, [facility] [place] [facility] [address] [id number] [place] [address] Aug, [facility] [place] [facility] [address] [id number] [place] [address] Aug, [facility] [place] [facility] [address] [id number] [place] [address] Aug, [facility] [place] [facility] [address] [id number] [place] [address] Aug, [facility] [place] [facility] [address] [id number] [place] [address] Aug, [facility] [place] [facility] [address] [id number] [place] [address] Aug, [facility] [place] [facility] [address] [id number] [place] [address] Aug, [facility] [place] [facility] [address] [id number] [place] [address] Aug, [facility] [place] [facility] [address] [id number] [place] [address] Aug, [facility] [place] [facility] [address] [id number] [place] [address] July, [facility] [place] [facility] [address] [id number] [place] [address] July, [facility] [address] [id number] [place] [address] July, [facility] [place] [facility] [address] [id number] [place] [address] July, [facility] [place] [facility] [address] [id number] [place] [address] July, [facility] [place] [facility] [address] [id number] [place] [address] July, [facility] [place] [facility] [address] [id number] [place] [address] July, [facility] [place] [facility] [address] [id number] [place] [address] July, [facility] [address] [id number] [place] [address] Jun, [facility] [place] [facility] [address] [id number] [place] [address] Jun, [facility] [place] [facility] [address] [id number] [place] [address] Jun, [facility] [place] [facility] [address] [id number] [place] [address] Jun, [facility] [place] [facility] [address] [id number] [place] [address] May, [facility] [place] [facility] [address] [id number] [place] [address] 28 May, 2013 [facility] [place] [facility] [address] [id number] [place] [address] May, [facility] [place] [facility] [address] [id number] [place] [address] May, [facility] [place] [facility] [address] [id number] [place] [address] May, [facility] [place] [facility] [address] [id number] [place] [address] May, [facility] [place] [facility] [address] [id number] [place] [address] Apr, [facility] [place] [facility] [address] [id number] [place] [address] Apr, [facility] [place] [facility] [address] [id number] [place] [address] Apr, [facility] [place] [facility] [address] [id number] [place] [address] Apr, [facility] [place] [facility] [address] [id number] [place] [address] Apr, [facility] [place] [facility] [address] [id number] [place] [address] Apr, [facility] [place] [facility] [address] [id number] [place] [address] Apr, [facility] [place] [facility] [address] [id number] [place] [address] Apr, [facility] [place] [facility] [address] [id number] [place] [address] Apr, [facility] [place] [facility] [address] [id number] [place] [address] Apr, [facility] [place] [facility] [address] [id number] [place] [address] Mar, [facility] [place] [facility] [address] [id number] [place] [address] Mar, [facility] [place] [facility] [address] [id number] [place] [address] Mar, [facility] [place] [facility] [address] [id number] [place] [address] Mar, [facility] [place] [facility] [address] [id number] [place] [address] Mar, [facility] [address] [id number] [place] [address] Mar, [facility] [address] [id number] [place] [address] Mar, [facility] [address] [id number] [place] [address] Mar, [facility] [address] [id number] [place] [address] Feb, [facility] [address] [id number] [place] [address] Feb, [facility] [address] [id number] [place] [address] Feb, [facility] [address] [id number] [place] [address] Feb, [facility] [address] [id number] [place] [address] Feb, [facility] [address] [id number] [place] [address] Feb, [facility] [address] [facility] [id number] [place] [address] Feb, [facility] [address] [id number] [place] [address] Feb, [facility] [address] [id number] [place] [address] Feb, [facility] [address] [id number] [place] [address] Feb, [facility] [address] [id number] [place] [address] Jan, [facility] [address] [id number] [place] [address] Jan, [facility] [place] [facility] [address] [id number] [place] [address] Jan, [facility] [place] [facility] [address] [id number] [place] [address] 20 Jan, 2013 [facility] [place] [facility] [address] [id number] [place] [address] 18 Jan, 2013 [facility] [place] [facility] [address] [id number] [place] [address] 15 Jan, 2013 [facility] [place] [facility] [address] [id number] [place] [address] 15 Jan, 2013 [facility] [place] [facility] [address] [id number] [place] [address] 14 Jan, 2013 [facility] [place] [facility] [address] [id number] [place] [address] Jan, [facility] [place] [facility] [address] [id number] [place] [address] Jan, [facility] [place] [facility] [address] [id number] [place] [address] Jan, [facility] [place] [facility] [address] [id number] [place] [address] Jan, [facility] [place] [facility] [address] [id number] [place] [address] Jan, [facility] [place] [facility] [address] [id number] [place] [address] Dec, [facility] [place] [facility] [address] [id number] [place] [address] Dec, [facility] [place] [facility] [address] [id number] [place] [address] Dec, [facility] [place] [facility] [address] [id number] [place] [address] Dec, [facility] [place] [facility] [address] [id number] [place] [address] Nov, [facility] [place] [facility] [address] [id number] [place] [address] Nov, [facility] [place] [facility] [address] [id number] [place] [address] Nov, [facility] [place] [facility] [address] [id number] [place] [address] Oct, [facility] [place] [facility] [address] [id number] [place] [address] Oct, [facility] [place] [facility] [address] [id number] [place] [address] Oct, [facility] [place] [facility] [address] [id number] [place] [address] Oct, [facility] [place] [facility] [address] [id number] [place] [address] Oct, [facility] [place] [facility] [address] [id number] [place] [address] Oct, [facility] [place] [facility] [address] [id number] [place] [address] Sep, [facility] [place] [facility] [address] [id number] [place] [address] Sep, [facility] [place] [facility] [address] [id number] [place] [address] Sep, [facility] [place] [facility] [address] [id number] [place] [address] Sep, [facility] [place] [facility] [address] [id number] [place] [address] Sep, [facility] [place] [facility] [address] [id number] [place] [address] Sep, [facility] [place] [facility] [address] [id number] [place] [address] Sep, [facility] [place] [facility] [address] [id number] [place] [address] Sep, [facility] [address] [id number] [place] [address] Sep, [facility] [place] [facility] [address] [id number] [place] [address] Aug, [facility] [place] [facility] [address] [id number] [place] [address] Aug, [facility] [place] [facility] [address] [id number] [place] [address] Aug, [facility] [place] [facility] [address] [id number] [place] [address] Aug, [facility] [place] [facility] [address] [id number] [place] [address] Aug, [facility] [place] [facility] [address] [id number] [place] [address] Aug, [facility] [place] [facility] [address] [id number] [place] [address] Aug, [facility] [place] [facility] [address] [id number] [place] [address] July, [facility] [place] [facility] [address] [id number] [place] [address] July, [facility] [place] [facility] [address] [id number] [place] [address] July, [facility] [place] [facility] [address] [id number] [place] [address] Jun, [facility] [place] [facility] [address] [id number] [place] [address] Jun, [facility] [place] [facility] [address] [id number] [place] [address] Jun, [facility] [place] [facility] [address] [id number] [place] [address] 02 Jun, 2012 [facility] [address] [id number] [place] [address] 29 May, 2012 [facility] [place] [facility] [address] [id number] [place] [address] 18 May, 2012 [facility] [place] [facility] [address] [id number] [place] [address] 18 May, 2012 [facility] [place] [facility] [address] [id number] [place] [address] 15 May, 2012 [facility] [place] [facility] [address] [id number] [place] [address] 14 May, 2012 [facility] [place] [facility] [address] [id number] [place] [address] 07 May, 2012 [facility] [place] [facility] [address] [id number] [place] [address] 06 May, 2012 [facility] [place] [facility] [address] [id number] [place] [address] 04 May, 2012 [facility] [place] [facility] [address] [id number] [place] [address] 18 Apr, 2012 [facility] [place] [facility] [address] [id number] [place] [address] 17 Feb, 2012 [facility] [place] [facility] [address] [id number] [place] [address] 17 Feb, 2012 [facility] [place] [facility] [address] [id number] [address] 17 Feb, 2012 [facility] [place] [facility] [address] [id number] [place] [address] 17 Feb, 2012 [facility] [place] [facility] [address] [id number] [place] [address] 13 Feb, 2012 [facility] [place] [facility] [address] [id number] [place] [address] 13 Feb, 2012 [facility] [place] [facility] [address] [id number] [place] [address] Feb, [facility] [place] [facility] [address] [id number] [place] [address] Feb, [facility] [place] [facility] [address] [id number] [place] [address] Feb, [facility] [place] [facility] [address] [id number] [place] [address] Feb, [facility] [place] [facility] [address] [id number] [place] [address] Jan, [facility] [place] [facility] [address] [id number] [place] [address] Jan, [facility] [place] [facility] [address] [id number] [place] [address] Jan, [facility] [place] [facility] [address] [facility] [id number] [place] [address] Jan, [facility] [place] [facility] [address] [id number] [place] [address] Jan, [facility] [place] [facility] [address] [facility] [id number] [place] [address] Jan, [facility] [place] [facility] [address] [facility] [id number] [place] [address] Jan, [facility] [place] [facility] [address] [facility] [id number] [place] [address] Jan, [facility] [place] [facility] [address] [id number] [place] [address] Dec, [facility] [place] [facility] [address] [id number] [place] [address] Dec, [facility] [place] [facility] [address] [facility] [id number] [place] [address] Dec, [facility] [place] [facility] [address] [id number] [place] [address] Dec, [facility] [place] [facility] [address] [id number] [place] [address] Dec, [facility] [place] [facility] [address] [id number] [place] [address] Dec, [facility] [place] [facility] [address] [id number] [place] [address] Dec, [facility] [place] [facility] [address] [id number] [place] [address] Nov, [facility] [place] [facility] [address] [id number] [place] [address] Nov, [facility] [place] [facility] [address] [id number] [place] [address] Nov, [facility] [place] [facility] [address] [id number] [place] [address] Oct, [facility] [place] [facility] [address] [id number] [place] [address] Oct, [facility] [place] [facility] [address] [id number] [place] [address] Oct, [facility] [place] [facility] [address] [id number] [place] [address] Oct, [facility] [place] [facility] [address] [id number] [place] [address] Sep, [facility] [place] [facility] [address] [id number] [place] [address] Sep, [facility] [place] [facility] [address] [id number] [place] [address] Sep, [facility] [place] [facility] [address] [id number] [place] [address] Aug, [facility] [place] [facility] [address] [id number] [place] [address] Aug, [facility] [place] [facility] [address] [id number] [place] [address] July, [facility] [address] [id number] [place] [address] July, [facility] [place] [facility] [address] [id number] [place] [address] July, [facility] [place] [facility] [address] [id number] [place] [address] Jun, [facility] [place] [facility] [address] [id number] [place] [address] Jun, [facility] [place] [facility] [address] [id number] [place] [address] May, [facility] [place] [facility] [address] [id number] [place] [address] Apr, [facility] [place] [facility] [address] [id number] [place] [address] Apr, [facility] [place] [facility] [address] [id number] [place] [address] Apr, [facility] [place] [facility] [address] [id number] [place] [address] Mar, [facility] [place] [facility] [address] [facility] [id number] [place] [address] Mar, [facility] [place] [facility] [address] [id number] [place] [address] Mar, [facility] [place] [facility] [address] [id number] [place] [address] Mar, [facility] [place] [facility] [address] [id number] [place] [address] Feb, [facility] [place] [facility] [address] [id number] [place] [address] Feb, [facility] [place] [facility] [address] [facility] [id number] [place] [address] Feb, [facility] [place] [facility] [address] [id number] [place] [address] 05 Feb, 2011 [facility] [place] [facility] [address] [id number] [place] [address] 30 Jan, 2011 [facility] [place] [facility] [address] [id number] [place] [address] Jan, [facility] [place] [facility] [address] [id number] [place] [address] Jan, [facility] [place] [facility] [address] [id number] [place] [address] Jan, [facility] [place] [facility] [address] [id number] [place] [address] Jan, [facility] [place] [facility] [address] [id number] [place] [address] Dec, [facility] [place] [facility] [address] [id number] [place] [address] Sep, [facility] [place] [facility] [address] [id number] [place] [address] 31 Feb, 2010 [facility] [place] [facility] [address] [id number] [place] [address] 30 Feb, 2010 [facility] [place] [facility] [address] [id number] [place] [address] Feb, [facility] [place] [facility] [address] [id number] [place] [address] 29 Dec, 2009 [facility] [place] [facility] [address] [id number] [place] [address] Dec, [facility] [place] [facility] [address] [id number] [place] [address] Oct, [facility] [place] [facility] [address] [id number] [place] [address] Aug, [facility] [place] [facility] [address] [id number] [place] [address] Feb, [facility] [address] [facility] [id number] [place] [address] Feb, [facility] [address] [id number] [place] [address] Jan, [facility] [address] [facility] [id number] [place] [address] Jan, [facility] [address] [facility] [id number] [place] [address] Dec, [facility] [address] [facility] [id number] [place] [address] Dec, [facility] [address] [facility] [id number] [place] [address] Nov, IMMUNIZATIONS No Known Immunizations SOCIAL HISTORY Never Assessed REASON FOR VISIT f/u PLAN OF CARE Activity Details Follow Up 4 Weeks Reason: VITAL SIGNS Height 68 in 2017-04-21 Weight 169.2 lbs 2017-04-21 Heart Rate 96 bpm 2017-04-21 Respiratory Rate 20 2017-04-21 BMI 25.72 kg/m2 2017-04-21 Blood pressure systolic 120 mmHg 2017-04-21 Blood pressure diastolic 70 mmHg 2017-04-21 MEDICATIONS Medication Instructions Dosage Frequency Start Date End Date Duration Status Seroquel 200 MG Orally Once a day at bedtime 1 tablet Active Trintellix 10 mg Orally Once a day for depression 1 tablet Mar, Active Clozapine 100 MG 1 tablet 3 tabs in the AM and HS; Take 2 tabs at 3PM Active Depakote ER 500 mg Orally 1 time per day 4 Tablet Active Clonazepam 2 MG Orally at bedtime 1 tablet Oct, Active Benztropine Mesylate 1 MG Orally 3 times a day; AM, 3PM and HS 1 Tablet Active RESULTS No Results PROCEDURES Procedure Date Ordered Result Body Site [facility] VISIT ESTABLISHED PATIENT Apr 21, 2017 INSTRUCTIONS MEDICATIONS ADMINISTERED No Known Medications MEDICAL (GENERAL) HISTORY Type Description Date Medical History High Blood Pressure Medical History Fainting/Seizures/Epilepsy Medical History Moderate MR Medical History GERD Medical History Hyperlipidemia Medical History Paranoid Schizophrenia Medical History incontenance Medical History 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
[2018-09-29] MEDS ORDERED: ALPRAZolam 0.25 MG (XANAX) TAB PO ONE (17:45)
--- OUTSIDE RECORDS SUMMARY | 2018-09-29 17:45 | XMS REPORT ---
Author Author ashleyMUSTAPHA RAMIREZ [facility] Address [address] [place] [address] Care Team Providers Care Front Office Clerk Name Role Phone taqeuriaMUSTAPHA Bravo Unavailable PROBLEMS Type Condition ICD9-CM Code JOO73-WD Code Onset Dates Condition Status SNOMED Code Problem Hyperlipemia E78.5 Active 31921530 Problem High risk medication use Z79.899 Active 115469765 Problem Seizures R56.9 Active 88832299 Problem Intermittent explosive disorder 312.34 Active 13499077 Problem Paranoid schizophrenia, chronic condition 295.32 Active 06218210 Problem Mildly mentally retarded F70 Active 72652942 Problem Constipation, unspecified constipation type K59.00 Active 11783035 Problem Severe episode of recurrent major depressive disorder, with psychotic features F33.3 Active 70279182 Problem Paranoid schizophrenia, chronic condition F20.0 Active 99331963 Problem Stress incontinence, male N39.3 Active 567611640 Problem Unsteady gait R26.81 Active 47889078 Problem Mild intellectual disabilities F70 Active 40225762 ALLERGIES Substance Reaction Event Type Date Status Prozac Unknown Drug Allergy Feb, Active ENCOUNTERS Encounter Location Date Diagnosis [facility] [id number] [address] Oct, [facility] [address], [place] [address] Sep, [facility] [id number] [place] [address] July, Paranoid schizophrenia, chronic condition F20.0 and Mild intellectual disabilities F70 [facility] [address] [id number], [place] [address] Jun, Paranoid schizophrenia, chronic condition F20.0 [facility] [id number] [place] [address] 15 May, 2017 [facility] [id number] [place] [address] 13 Apr, 2017 Paranoid schizophrenia, chronic condition F20.0 ; Mild intellectual disabilities F70 and High risk medication use Z79.899 [facility] [address] [address] Apr, [facility] [address] [address] Mar, [place] [address] [address] Mar, [facility] [address] [address] Mar, Contusion of nose, initial encounter S00.33XA [place] [id number] [place] [address] Mar, Paranoid schizophrenia, chronic condition F20.0 ; Severe episode of recurrent major depressive disorder, with psychotic features F33.3 and Mild intellectual disabilities F70 [facility] [id number] [place] [address] Mar, Constipation, unspecified constipation type K59.00 and Abrasion of right ear, initial encounter S00.411A [place] [id number] [place] [address] Mar, [facility] [id number] [place] [id number] Feb, Encounter for dental examination and cleaning without abnormal findings Z01.20 [place] [address] [address] 12 Feb, 2017 [place] [id number] [place] [address] 05 Feb, 2017 Paranoid schizophrenia, chronic condition F20.0 ; Mild intellectual disabilities F70 and High risk medication use Z79.899 [facility] [address], [place] [address] Jan, [facility] [id number] [place] [address] Jan, Unsteady gait R26.81 [facility] [id number] [place] [address] Dec, Encounter for immunization Z23 [facility] [id number] [place] [address] Nov, [facility] [id number] [place] [address] Oct, Paranoid schizophrenia, chronic condition F20.0 ; Mild intellectual disabilities F70 and High risk medication use Z79.899 [facility] [id number] [place] [address] Sep, [facility] [id number] [place] [address] July, [facility] [id number] [place] [address] Jun, High risk medication use Z79.899 [facility] [id number] [place] [address] Apr, [facility] [id number] [place] [address] Apr, Paranoid schizophrenia, chronic condition F20.0 ; Mild intellectual disabilities F70 and High risk medication use Z79.899 [facility] [id number] [place] [address] Apr, [facility] [id number] [place] [address] Feb, [facility] [id number] [place] [address] Jan, [facility] [address] [facility] [id number], [place] [address] Jan, [facility] [address] [facility] [id number], [place] [address] Jan, Paranoid schizophrenia, chronic condition F20.0 [facility] [id number], [place] [address] Dec, Paranoid schizophrenia, chronic condition F20.0 ; Mild intellectual disabilities F70 and High risk medication use Z79.899 [facility] [address] [facility] [id number] [place] [address] Dec, [facility] [address] [facility] [id number], [place] [address] Nov, Paranoid schizophrenia, chronic condition F20.0 ; Mild intellectual disabilities F70 and High risk medication use Z79.899 [facility] [id number], [place] [address] Oct, [facility] [address] [facility] [id number], [place] [address] Oct, [facility] [address] [facility] [id number], [place] [address] Oct, [facility] [id number], [place] [address] Oct, [facility] [id number], [place] [address] Aug, [facility] [address] [facility] [id number], [place] [address] Jun, Paranoid schizophrenia, chronic condition F20.0 ; High risk medication use Z79.899 and Mild intellectual disabilities F70 [facility] [address] [facility] [id number] [place] [address] Apr, High risk medication use Z79.899 ; Paranoid schizophrenia, chronic condition F20.0 and Mild intellectual disabilities F70 [facility] [id number] [id number] 17 Apr, 2015 Encounter for dental examination Z01.20 [facility] [address], [place] [address] 02 Apr, 2015 [facility] [address], [place] [address] Mar, Paranoid schizophrenia, chronic condition F20.0 ; Mildly mentally retarded F70 and High risk medication use Z79.899 [facility] [address], [place] [address] Feb, Paranoid schizophrenia F20.0 [facility] [address], [place] [address] Dec, [facility] [id number] [place] [address] Dec, Paranoid schizophrenia, chronic condition F20.0 and Mild mental retardation F70 [facility] [address], [place] [address] Dec, [facility] [id number] [place] [address] Dec, [facility] [address], [place] [address] Dec, [facility] [id number] [place] [address] Dec, High risk medication use Z79.899 and Hyperlipemia E78.5 [facility] [address], [place] [address] Nov, [facility] [address], [place] [address] Sep, [facility] [address], [place] [address] Sep, Paranoid schizophrenia, chronic condition 295.32 and Mild mental retardation 317 [facility] [address] [facility] [id number] [place] [address] 14 Jun, 2014 [facility] [place] [facility] [address] [facility] [id number] [place] [address] Jun, [facility] [address] [facility] [id number] [place] [address] Apr, [facility] [place] [facility] [address] [facility] [id number] [place] [address] Apr, [facility] [address] [facility] [id number] [place] [address] Apr, [facility] [address] [facility] [id number] [place] [address] Apr, [facility] [id number] [place] [address] Apr, [facility] [place] [facility] [address] [facility] [id number], [place] [address] Apr, [facility] [id number] [place] [address] Mar, [facility] [place] [facility] [address] [facility] [id number] [place] [address] Mar, [facility] [id number], [place] [address] Mar, [facility] [place] [facility] [address] [facility] [id number], [place] [address] Mar, [facility] [place] [facility] [address] [facility] [id number], [place] [address] Mar, [facility] [place] [facility] [address] [facility] [id number], [place] [address] Mar, [facility] [place] [facility] [id number] [place] [address] Feb, [facility] [place] [facility] [address] [facility] [id number] [place] [address] Feb, [facility] [place] [facility] [address] [id number] [place] [address] Jan, [facility] [place] [facility] [address] [id number] [place] [address] Jan, [facility] [place] [facility] [address] [id number] [place] [address] Jan, [facility] [place] [facility] [address] [id number] [place] [address] Jan, [facility] [place] [facility] [address] [id number] [place] [address] Jan, [facility] [place] [facility] [address] [id number] [place] [address] Jan, [facility] [place] [facility] [address] [id number] [place] [address] Jan, [facility] [place] [facility] [address] [id number] [place] [address] Dec, [facility] [place] [facility] [address] [id number] [place] [address] Dec, [facility] [place] [facility] [address] [id number] [place] [address] Dec, [facility] [place] [facility] [address] [id number] [place] [address] Dec, [facility] [place] [facility] [address] [id number], [place] [address] Dec, [facility] [place] [facility] [address] [id number] [place] [address] Dec, [facility] [place] [facility] [address] [id number] [place] [address] Dec, [facility] [place] [facility] [address] [id number] [place] [address] Dec, [facility] [place] [facility] [address] [id number] [place] [address] Nov, [facility] [place] [facility] [address] [id number] [place] [address] Nov, [facility] [place] [facility] [address] [id number] [place] [address] Nov, [facility] [place] [facility] [address] [id number] [place] [address] Nov, [facility] [place] [facility] [address] [id number] [place] [address] Oct, [facility] [place] [facility] [address] [id number] [place] [address] Oct, [facility] [place] [facility] [address] [id number] [place] [address] Oct, [facility] [place] [facility] [address] [id number] [place] [address] Oct, [facility] [place] [facility] [address] [id number] [place] [address] Oct, [facility] [place] [facility] [address] [id number] [place] [address] Oct, [facility] [place] [facility] [address] [id number] [place] [address] Sep, [facility] [place] [facility] [address] [id number] [place] [address] Sep, [facility] [place] [facility] [address] [id number] [place] [address] Sep, [facility] [place] [facility] [address] [id number] [place] [address] Sep, [facility] [place] [facility] [address] [id number] [place] [address] Sep, [facility] [place] [facility] [address] [id number] [place] [address] Sep, [facility] [place] [facility] [address] [id number] [place] [address] Sep, [facility] [place] [facility] [address] [id number] [place] [address] Sep, [facility] [place] [facility] [address] [id number] [place] [address] Sep, [facility] [place] [facility] [address] [id number] [place] [address] Sep, [facility] [place] [facility] [address] [id number] [place] [address] Aug, [facility] [place] [facility] [address] [id number] [place] [address] Aug, [facility] [place] [facility] [address] [id number] [place] [address] Aug, [facility] [place] [facility] [address] [id number] [place] [address] Aug, [facility] [place] [facility] [address] [id number] [place] [address] Aug, [facility] [place] [facility] [address] [id number] [place] [address] Aug, [facility] [place] [facility] [address] [id number] [place] [address] Aug, [facility] [place] [facility] [address] [id number] [place] [address] Aug, [facility] [place] [facility] [address] [id number] [place] [address] Aug, [facility] [place] [facility] [address] [id number] [place] [address] Aug, [facility] [place] [facility] [address] [id number] [place] [address] July, [facility] [place] [facility] [address] [id number] [place] [address] July, [facility] [address] [id number] [place] [address] July, [facility] [place] [facility] [address] [id number] [place] [address] July, [facility] [address] [id number] [place] [address] July, [facility] [place] [facility] [address] [id number] [place] [address] July, [facility] [address] [id number] [place] [address] July, [facility] [place] [facility] [address] [id number] [place] [address] July, [facility] [address] [id number] [place] [address] Jun, [facility] [address] [id number] [place] [address] Jun, [facility] [place] [facility] [address] [id number] [place] [address] Jun, [facility] [place] [facility] [address] [id number] [place] [address] Jun, [facility] [place] [facility] [address] [id number] [place] [address] May, [facility] [place] [facility] [address] [id number] [place] [address] 28 May, 2013 [facility] [place] [facility] [address] [id number] [place] [address] May, [facility] [place] [facility] [address] [id number] [place] [address] May, [facility] [place] [facility] [address] [id number] [place] [address] May, [facility] [place] [facility] [address] [id number] [place] [address] May, [facility] [place] [facility] [address] [id number] [place] [address] Apr, [facility] [place] [facility] [address] [facility] [id number] [place] [address] Apr, [facility] [place] [facility] [address] [id number] [place] [address] Apr, [facility] [place] [facility] [address] [id number] [place] [address] Apr, [facility] [place] [facility] [address] [id number] [place] [address] Apr, [facility] [place] [facility] [address] [id number] [place] [address] Apr, [facility] [place] [facility] [address] [id number] [place] [address] Apr, [facility] [place] [facility] [address] [id number] [place] [address] Apr, [facility] [place] [facility] [address] [facility] [id number] [place] [address] Apr, [facility] [place] [facility] [address] [id number] [place] [address] Apr, [facility] [place] [facility] [address] [id number] [place] [address] Mar, [facility] [place] [facility] [address] [id number] [place] [address] Mar, [facility] [place] [facility] [address] [id number] [place] [address] Mar, [facility] [place] [facility] [address] [facility] [id number] [place] [address] Mar, [facility] [place] [facility] [address] [id number] [place] [address] Mar, [facility] [place] [facility] [address] [id number] [place] [address] Mar, [facility] [place] [facility] [address] [id number] [place] [address] Mar, [facility] [place] [facility] [address] [id number] [place] [address] Mar, [facility] [place] [facility] [address] [id number] [place] [address] Feb, [facility] [place] [facility] [address] [id number] [place] [address] Feb, [facility] [place] [facility] [address] [id number] [place] [address] Feb, [facility] [place] [facility] [address] [id number] [place] [address] Feb, [facility] [place] [facility] [address] [id number] [place] [address] Feb, [facility] [place] [facility] [address] [id number] [place] [address] Feb, [facility] [place] [facility] [address] [id number] [place] [address] Feb, [facility] [place] [facility] [address] [id number] [place] [address] Feb, [facility] [place] [facility] [address] [id number] [place] [address] 05 Feb, 2013 [facility] [place] [facility] [address] [id number] [place] [address] Feb, [facility] [place] [facility] [address] [id number] [place] [address] Jan, [facility] [place] [facility] [address] [id number] [place] [address] Jan, [facility] [place] [facility] [address] [id number] [place] [address] Jan, [facility] [place] [facility] [address] [id number] [place] [address] Jan, [facility] [place] [facility] [address] [id number] [place] [address] 18 Jan, 2013 [facility] [place] [facility] [address] [id number], [place] [address] 15 Jan, 2013 [facility] [place] [facility] [address] [id number] [place] [address] 15 Jan, 2013 [facility] [place] [facility] [address] [id number] [place] [address] 14 Jan, 2013 [facility] [place] [facility] [address] [id number] [place] [address] Jan, [facility] [place] [facility] [address] [id number], [place] [address] Jan, [facility] [place] [facility] [address] [id number], [place] [address] Jan, [facility] [place] [facility] [address] [id number], [place] [address] Jan, [facility] [place] [facility] [address] [id number], [place] [address] Jan, [facility] [place] [facility] [address] [id number], [place] [address] Dec, [facility] [place] [facility] [address] [id number], [place] [address] Dec, [facility] [place] [facility] [address] [id number], [place] [address] Dec, [facility] [place] [facility] [address] [id number], [place] [address] Dec, [facility] [place] [facility] [address] [id number] [place] [address] Nov, [facility] [place] [facility] [address] [id number] [place] [address] 24 Nov, 2012 [facility] [place] [facility] [address] [id number] [place] [address] Nov, [facility] [place] [facility] [address] [id number] [place] [address] Oct, [facility] [place] [facility] [address] [id number] [place] [address] Oct, [facility] [place] [facility] [address] [id number] [place] [address] Oct, [facility] [place] [facility] [address] [id number] [place] [address] Oct, [facility] [place] [facility] [address] [id number] [place] [address] Oct, [facility] [place] [facility] [address] [id number] [place] [address] Oct, [facility] [place] [facility] [address] [id number] [place] [address] Sep, [facility] [place] [facility] [address] [id number] [place] [address] Sep, [facility] [place] [facility] [address] [id number] [place] [address] Sep, [facility] [place] [facility] [address] [id number] [place] [address] Sep, [facility] [place] [facility] [address] [id number] [place] [address] Sep, [facility] [place] [facility] [address] [id number] [place] [address] Sep, [facility] [place] [facility] [address] [id number] [place] [address] Sep, [facility] [place] [facility] [address] [id number] [place] [address] Sep, [facility] [address] [id number] [place] [address] Sep, [facility] [address] [id number] [place] [address] Aug, [facility] [address] [id number] [place] [address] Aug, [facility] [address] [id number] [place] [address] Aug, [facility] [address] [id number] [place] [address] Aug, [facility] [address] [id number] [place] [address] Aug, [facility] [address] [id number] [place] [address] Aug, [facility] [address] [id number] [place] [address] Aug, [facility] [address] [id number] [place] [address] July, [facility] [address] [id number] [place] [address] July, [facility] [address] [id number] [place] [address] July, [facility] [address] [id number] [place] [address] Jun, [facility] [place] [facility] [address] [id number] [place] [address] Jun, [facility] [place] [facility] [address] [id number] [place] [address] Jun, [facility] [address] [id number] [place] [address] 02 Jun, 2012 [facility] [address] [id number] [place] [address] 29 May, 2012 [facility] [place] [facility] [address] [id number] [place] [address] 18 May, 2012 [facility] [place] [facility] [address] [id number] [place] [address] 18 May, 2012 [facility] [place] [facility] [address] [id number] [place] [address] 15 May, 2012 [facility] [address] [id number] [place] [address] 14 May, 2012 [facility] [address] [id number] [place] [address] 07 May, 2012 [facility] [address] [id number] [place] [address] 06 May, 2012 [facility] [place] [facility] [address] [id number] [place] [address] 04 May, 2012 [facility] [address] [id number] [place] [address] 18 Apr, 2012 [facility] [address] [id number] [place] [address] 17 Feb, 2012 [facility] [address] [id number] [place] [address] 17 Feb, 2012 [facility] [place] [facility] [address] [id number] [place] [address] 17 Feb, 2012 [facility] [place] [facility] [address] [id number] [place] [address] 17 Feb, 2012 [facility] [place] [facility] [address] [id number] [place] [address] 13 Feb, 2012 [facility] [place] [facility] [address] [id number] [place] [address] 13 Feb, 2012 [facility] [place] [facility] [address] [id number] [place] [address] Feb, [facility] [place] [facility] [address] [id number] [place] [address] Feb, [facility] [place] [facility] [address] [id number] [place] [address] Feb, [facility] [place] [facility] [address] [id number] [place] [address] Feb, [facility] [place] [facility] [address] [id number] [place] [address] Jan, [facility] [place] [facility] [address] [id number] [place] [address] Jan, [facility] [place] [facility] [address] [id number] [place] [address] Jan, [facility] [place] [facility] [address] [id number] [place] [address] Jan, [facility] [place] [facility] [address] [id number] [place] [address] Jan, [facility] [place] [facility] [address] [id number] [place] [address] Jan, [facility] [place] [facility] [address] [id number] [place] [address] Jan, [facility] [place] [facility] [address] [id number] [place] [address] Jan, [facility] [place] [facility] [address] [id number] [place] [address] Dec, [facility] [place] [facility] [address] [id number] [place] [address] Dec, [facility] [place] [facility] [address] [id number] [place] [address] Dec, [facility] [place] [facility] [address] [id number] [place] [address] Dec, [facility] [place] [facility] [address] [id number] [place] [address] Dec, [facility] [place] [facility] [address] [id number] [place] [address] Dec, [facility] [place] [facility] [address] [id number] [place] [address] Dec, [facility] [place] [facility] [address] [id number] [place] [address] Nov, [facility] [place] [facility] [address] [id number] [place] [address] Nov, [facility] [place] [facility] [address] [id number] [place] [address] Nov, [facility] [place] [facility] [address] [id number] [place] [address] Oct, [facility] [place] [facility] [address] [id number] [place] [address] Oct, [facility] [place] [facility] [address] [id number] [place] [address] Oct, [facility] [place] [facility] [address] [id number] [place] [address] Oct, [facility] [place] [facility] [address] [id number] [place] [address] Sep, [facility] [place] [facility] [address] [id number] [place] [address] Sep, [facility] [place] [facility] [address] [id number] [place] [address] Sep, [facility] [place] [facility] [address] [id number] [place] [address] Aug, [facility] [place] [facility] [address] [id number] [place] [address] Aug, [facility] [place] [facility] [address] [id number] [place] [address] July, [facility] [address] [id number] [place] [address] July, [facility] [place] [facility] [address] [id number] [place] [address] July, [facility] [place] [facility] [address] [id number] [place] [address] Jun, [facility] [place] [facility] [address] [id number] [place] [address] Jun, [facility] [place] [facility] [address] [id number] [place] [address] May, [facility] [place] [facility] [address] [id number] [place] [address] Apr, [facility] [place] [facility] [address] [id number] [place] [address] Apr, [facility] [place] [facility] [address] [id number] [place] [address] Apr, [facility] [place] [facility] [address] [id number] [place] [address] Mar, [facility] [place] [facility] [address] [id number] [place] [address] Mar, [facility] [place] [facility] [address] [id number] [place] [address] Mar, [facility] [place] [facility] [address] [id number] [place] [address] Mar, [facility] [place] [facility] [address] [id number] [place] [address] Feb, [facility] [place] [facility] [address] [id number] [place] [address] Feb, [facility] [place] [facility] [address] [id number] [place] [address] Feb, [facility] [place] [facility] [address] [id number] [place] [address] Feb, [facility] [place] [facility] [address] [id number] [place] [address] Jan, [facility] [place] [facility] [address] [id number] [place] [address] Jan, [facility] [place] [facility] [address] [id number] [place] [address], [place] [address] Jan, [facility] [place] [facility] [address] [id number] [place] [address] Jan, [facility] [place] [facility] [address] [id number] [place] [address] Jan, [facility] [place] [facility] [address] [id number] [place] [address] Dec, [facility] [place] [facility] [address] [id number] [place] [address] Sep, [facility] [place] [facility] [address] [id number] [place] [address] Feb, [facility] [place] [facility] [address] [id number] [place] [address] Feb, [facility] [place] [facility] [address] [id number] [place] [address] Feb, [facility] [place] [facility] [address] [id number] [place] [address] 29 Dec, 2009 [facility] [place] [facility] [address] [id number] [place] [address] Dec, [facility] [place] [facility] [address] [id number] [place] [address] Oct, [facility] [place] [facility] [address] [id number] [place] [address] Aug, [facility] [place] [facility] [address] [id number], [place] [address] Feb, [facility] [address] [facility] [id number], [place] [address] Feb, [facility] [address] [facility] [id number], [place] [address] Jan, [facility] [address] [facility] [id number], [place] [address] Jan, [facility] [address] [facility] [id number], [place] [address] Dec, [facility] [address] [facility] [id number], [place] [address] Dec, [facility] [address] [facility] [id number], [place] [address] Nov, IMMUNIZATIONS No Known Immunizations SOCIAL HISTORY Never Assessed REASON FOR VISIT ADULT OUTREACH [facility] PLAN OF CARE Activity Details Follow Up 1 Year Reason:SOFT TISSUE EXAM/OLIVER VITAL SIGNS MEDICATIONS Medication Instructions Dosage Frequency Start Date End Date Duration Status MiraLax 17 gram/dose 17 g by Oral route 1 time per day take daily Feb, Unknown EPA 1000 MG Orally twice a day 1 capsule 12h Unknown Docusate Sodium 100 mg take 1 capsule (100 mg) by oral route 2 times per day July, Unknown Loratadine 10 mg 1 tablet by Oral route 1 time per day Apr, Unknown Haloperidol 2 MG 1 Tablet by Oral route 1 time per day Unknown Clozapine 100 MG 1 tablet 3 tabs in the AM and HS; Take 2 tabs at 3PM Unknown Benztropine Mesylate 1 MG Orally 3 times a day; AM, 3PM and HS 1 Tablet Unknown Seroquel 100 MG Orally Once a day at bedtime 1 tablet Unknown Metoprolol Succinate 25 mg 1 tablet by Oral route 1 time per day July, Unknown Folic Acid 1 mg 0.5 tablet by Oral route 1 time per day Apr, Unknown Keppra 500 mg take 1 tablet (500 mg) by oral route 2 times per day July, Unknown Clonazepam 2 MG Orally for anxiety 1/2 tablet at 3pm and 1.5 tablets at HS Oct, 31 days Unknown Protonix 40 mg 1 tablet by Oral route 1 time per day July, Unknown Lipitor 20 mg 1 tablet by Oral route 1 time per day Sep, Unknown Depakote ER 500 mg Orally 1 time per day 4 Tablet Unknown Oxybutynin Chloride 5 MG Orally Twice a day 1 tablet by Oral route 2 times per day 12h Sep, Unknown Trazodone HCl 150 MG Orally for depression and sleep take 1.5 Tablet by Oral route 1 time per day qHS Unknown RESULTS No Results PROCEDURES Procedure Date Ordered Result Body Site COMP ORAL EVALUATION - NEW/EST PT Mar 04, 2017 INSTRUCTIONS MEDICATIONS ADMINISTERED No Known Medications MEDICAL (GENERAL) HISTORY Type Description Date Medical History High Blood Pressure Medical History Fainting/Seizures/Epilepsy Medical History Moderate MR Medical History GERD Medical History Hyperlipidemia Medical History Paranoid Schizophrenia Medical History incontenance Medical History 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
--- OUTSIDE RECORDS SUMMARY | 2018-09-29 17:45 | XMS REPORT ---
Author Author REINIER THAKKAR [facility] IN CARE Address [address] [place] [address] Care Team Providers Care Cna Per Diem Name Role Phone REINIER THAKKAR Unavailable PROBLEMS Type Condition ICD9-CM Code [id number] Code Onset Dates Condition Status SNOMED Code Problem Hyperlipemia E78.5 Active 88447880 Problem High risk medication use Z79.899 Active 369407488 Problem Seizures R56.9 Active 66673543 Problem Intermittent explosive disorder 312.34 Active 42859399 Problem Paranoid schizophrenia, chronic condition 295.32 Active 81582169 Problem Mildly mentally retarded F70 Active 99287457 Problem Constipation, unspecified constipation type K59.00 Active 23507506 Problem Severe episode of recurrent major depressive disorder, with psychotic features F33.3 Active 47990180 Problem Paranoid schizophrenia, chronic condition F20.0 Active 31258968 Problem Stress incontinence, male N39.3 Active 880861324 Problem Unsteady gait R26.81 Active 22646553 Problem Mild intellectual disabilities F70 Active 60952624 ALLERGIES Substance Reaction Event Type Date Status Prozac Unknown Drug Allergy Mar, Active ENCOUNTERS Encounter Location Date Diagnosis [facility] [id number] [address] Oct, [facility] [id number] [place] [address] Sep, [facility] [id number] [place] [address] July, Paranoid schizophrenia, chronic condition F20.0 and Mild intellectual disabilities F70 [facility] [id number] [address] Jun, Paranoid schizophrenia, chronic condition F20.0 [facility] [id number] [place] [address] May, [facility] [id number] [place] [address] 13 Apr, 2017 Paranoid schizophrenia, chronic condition F20.0 ; Mild intellectual disabilities F70 and High risk medication use Z79.[id number] [place] [address] Apr, [address] [place] [id number] [place] [address] Mar, [id number] [place] [address] Mar, [facility] [id number] [place] [address] Mar, Contusion of nose, initial encounter S00.33XA [address] [place] [id number] [place] [address] Mar, Paranoid schizophrenia, chronic condition F20.0 ; Severe episode of recurrent major depressive disorder, with psychotic features F33.3 and Mild intellectual disabilities F70 [facility] [id number] [place] [address] Mar, Constipation, unspecified constipation type K59.00 and Abrasion of right ear, initial encounter S00.411A [address] [id number] [place] [address] Mar, [facility] [id number] [place] [id number] Feb, Encounter for dental examination and cleaning without abnormal findings Z01.20 [address] [place] [id number] [place] [address] Feb, [address] [id number] [place] [address] 05 Feb, 2017 Paranoid schizophrenia, chronic condition F20.0 ; Mild intellectual disabilities F70 and High risk medication use Z79.899 [facility] [address] [address] Jan, [facility] [id number] [place] [address] Jan, Unsteady gait R26.81 [facility] [address] [address] Dec, Encounter for immunization Z23 [facility] [id number] [place] [address] Nov, [facility] [id number] [place] [address] Oct, Paranoid schizophrenia, chronic condition F20.0 ; Mild intellectual disabilities F70 and High risk medication use Z79.899 [facility] [id number] [place] [address] Sep, [facility] [id number] [place] [address] July, [facility] [id number] [place] [address] Jun, High risk medication use Z79.899 [facility] [address] [address] Apr, [facility] [id number] [place] [address] Apr, Paranoid schizophrenia, chronic condition F20.0 ; Mild intellectual disabilities F70 and High risk medication use Z79.899 [facility] [id number] [place] [address] Apr, [facility] [id number] [place] [address] Feb, [facility] [address] [address] Jan, [facility] [address] [facility] [id number] [address] Jan, [facility] [address] [facility] [id number] [address] Jan, Paranoid schizophrenia, chronic condition F20.0 [facility] [id number] [address] Dec, Paranoid schizophrenia, chronic condition F20.0 ; Mild intellectual disabilities F70 and High risk medication use Z79.899 [facility] [address] [facility] [id number], [place] [address] Dec, [facility] [address] [facility] [id number], [place] [address] Nov, Paranoid schizophrenia, chronic condition F20.0 ; Mild intellectual disabilities F70 and High risk medication use Z79.899 [facility] [address] [address] Oct, [facility] [address] [facility] [id number], [place] [address] Oct, [facility] [id number] [address] Oct, [facility] [id number] [address] Oct, [facility] [address] [address] Aug, [facility] [address] [facility] [id number], [place] [address] Jun, Paranoid schizophrenia, chronic condition F20.0 ; High risk medication use Z79.899 and Mild intellectual disabilities F70 [facility] [address] [facility] [id number] [place] [address] Apr, High risk medication use Z79.899 ; Paranoid schizophrenia, chronic condition F20.0 and Mild intellectual disabilities F70 [facility] [address] [id number] [id number] 17 Apr, 2015 Encounter for dental examination Z01.20 [facility] [address] [address] Apr, [facility] [address] [address] Mar, Paranoid schizophrenia, chronic condition F20.0 ; Mildly mentally retarded F70 and High risk medication use Z79.899 [facility] [address] [address] Feb, Paranoid schizophrenia F20.0 [facility] [address] [address] Dec, [facility] [id number] [address] Dec, Paranoid schizophrenia, chronic condition F20.0 and Mild mental retardation F70 [facility] [address] [address] Dec, [facility] [id number] [address] Dec, [facility] [address] [address] Dec, [facility] [address] [address] Dec, High risk medication use Z79.899 and Hyperlipemia E78.5 [facility] [address] [address] Nov, [facility] [address] [address] Sep, [facility] [address] [address] Sep, Paranoid schizophrenia, chronic condition 295.32 and Mild mental retardation [facility] [address] [id number] [place] [address] 14 Jun, 2014 [facility] [place] [facility] [address] [id number] [place] [address] Jun, [facility] [place] [facility] [address] [id number] [place] [address] Apr, 2014 [facility] [place] [facility] [address] [id number] [place] [address] Apr, 2014 [facility] [place] [facility] [address] [id number] [place] [address] Apr, 2014 [facility] [place] [facility] [address] [id number] [place] [address] Apr, 2014 [facility] [place] [facility] [address] [facility] [id number] [place] [address] Apr, [facility] [place] [facility] [address] [facility] [id number] [place] [address] Apr, [facility] [place] [facility] [address] [facility] [id number] [place] [address] Mar, [facility] [place] [facility] [address] [facility] [id number] [place] [address] Mar, [facility] [place] [facility] [address] [facility] [id number], [place] [address] Mar, [facility] [place] [facility] [address] [id number], [place] [address] Mar, [facility] [place] [facility] [address] [facility] [id number] [place] [address] Mar, [facility] [place] [facility] [address] [facility] [id number], [place] [address] Mar, [facility] [place] [facility] [address] [facility] [id number] [place] [address] Feb, [facility] [place] [facility] [address] [id number] [place] [address] Feb, [facility] [place] [facility] [address] [id number] [place] [address] Jan, [facility] [place] [facility] [address] [id number] [place] [address] Jan, [facility] [place] [facility] [address] [id number] [place] [address] Jan, [facility] [place] [facility] [address] [id number] [place] [address] Jan, [facility] [place] [facility] [address] [id number] [place] [address] Jan, [facility] [place] [facility] [address] [id number] [place] [address] Jan, [facility] [place] [facility] [address] [id number] [place] [address] Jan, [facility] [place] [facility] [address] [id number] [place] [address] Dec, [facility] [place] [facility] [address] [id number] [place] [address] Dec, [facility] [place] [facility] [address] [facility] [id number] [place] [address] Dec, [facility] [place] [facility] [address] [id number] [place] [address] Dec, [facility] [place] [facility] [address] [id number], [place] [address] Dec, [facility] [place] [facility] [address] [id number] [place] [address] Dec, [facility] [place] [facility] [address] [id number] [place] [address] Dec, [facility] [place] [facility] [address] [facility] [id number], [place] [address] Dec, [facility] [place] [facility] [address] [id number] [place] [address] 17 Nov, 2013 [facility] [place] [facility] [address] [id number] [place] [address] 17 Nov, 2013 [facility] [place] [facility] [address] [id number] [place] [address] Nov, [facility] [place] [facility] [address] [id number] [place] [address] Nov, [facility] [place] [facility] [address] [id number] [place] [address] Oct, [facility] [place] [facility] [address] [id number] [place] [address] Oct, [facility] [place] [facility] [address] [id number] [place] [address] Oct, [facility] [place] [facility] [address] [id number] [place] [address] Oct, [facility] [place] [facility] [address] [id number] [place] [address] Oct, [facility] [place] [facility] [address] [id number] [place] [address] Oct, [facility] [place] [facility] [address] [id number] [place] [address] Sep, [facility] [place] [facility] [address] [id number] [place] [address] Sep, [facility] [place] [facility] [address] [id number] [place] [address] Sep, [facility] [place] [facility] [address] [id number] [place] [address] Sep, [facility] [place] [facility] [address] [id number] [place] [address] Sep, [facility] [place] [facility] [address] [id number] [place] [address] Sep, [facility] [place] [facility] [address] [id number] [place] [address] Sep, [facility] [place] [facility] [address] [id number] [place] [address] Sep, [facility] [place] [facility] [address] [id number] [place] [address] Sep, [facility] [place] [facility] [address] [id number] [place] [address] Sep, [facility] [place] [facility] [address] [id number] [place] [address] Aug, [facility] [place] [facility] [address] [id number] [place] [address] Aug, [facility] [place] [facility] [address] [id number] [place] [address] Aug, [facility] [place] [facility] [address] [id number] [place] [address] Aug, [facility] [place] [facility] [address] [id number] [place] [address] Aug, [facility] [place] [facility] [address] [id number] [place] [address] Aug, [facility] [place] [facility] [address] [id number] [place] [address] Aug, [facility] [place] [facility] [address] [id number] [place] [address] Aug, [facility] [place] [facility] [address] [id number] [place] [address] Aug, [facility] [place] [facility] [address] [id number] [place] [address] Aug, [facility] [place] [facility] [address] [id number] [place] [address] July, [facility] [place] [facility] [address] [id number] [place] [address] July, [facility] [address] [id number] [place] [address] July, [facility] [address] [id number] [place] [address] July, [facility] [address] [id number] [place] [address] July, [facility] [address] [id number] [place] [address] July, [facility] [address] [id number] [place] [address] July, [facility] [address] [id number] [place] [address] July, [facility] [address] [id number] [place] [address] Jun, [facility] [address] [id number] [place] [address] Jun, [facility] [address] [id number] [place] [address] Jun, [facility] [address] [id number] [place] [address] Jun, [facility] [address] [id number] [place] [address] May, [facility] [address] [id number] [place] [address] 28 May, 2013 [facility] [place] [facility] [address] [id number] [place] [address] May, [facility] [place] [facility] [address] [id number] [place] [address] May, [facility] [place] [facility] [address] [id number] [place] [address] May, [facility] [place] [facility] [address] [id number] [place] [address] May, [facility] [place] [facility] [address] [id number] [place] [address] Apr, [facility] [place] [facility] [address] [id number] [place] [address] Apr, [facility] [place] [facility] [address] [id number] [place] [address] Apr, [facility] [place] [facility] [address] [id number] [place] [address] Apr, [facility] [place] [facility] [address] [id number] [place] [address] Apr, [facility] [place] [facility] [address] [id number] [place] [address] Apr, [facility] [place] [facility] [address] [id number] [place] [address] Apr, [facility] [place] [facility] [address] [id number] [place] [address] Apr, [facility] [place] [facility] [address] [id number] [place] [address] Apr, [facility] [place] [facility] [address] [id number] [place] [address] Apr, [facility] [place] [facility] [address] [id number] [place] [address] Mar, [facility] [place] [facility] [address] [id number] [place] [address] Mar, [facility] [place] [facility] [address] [id number] [place] [address] Mar, [facility] [place] [facility] [address] [id number] [place] [address] Mar, [facility] [place] [facility] [address] [id number] [place] [address] Mar, [facility] [address] [id number] [place] [address] Mar, [facility] [address] [id number] [place] [address] Mar, [facility] [address] [id number] [place] [address] Mar, [facility] [address] [id number] [place] [address] Feb, [facility] [address] [id number] [place] [address] Feb, [facility] [address] [id number] [place] [address] Feb, [facility] [address] [id number] [place] [address] Feb, [facility] [address] [id number] [place] [address] Feb, [facility] [address] [id number] [place] [address] Feb, [facility] [address] [id number] [place] [address] Feb, [facility] [address] [id number] [place] [address] Feb, [facility] [address] [id number] [place] [address] Feb, [facility] [address] [id number] [place] [address] Feb, [facility] [address] [id number] [place] [address] Jan, [facility] [address] [id number] [place] [address] Jan, [facility] [place] [facility] [address] [id number] [place] [address] Jan, [facility] [place] [facility] [address] [id number] [place] [address] Jan, [facility] [place] [facility] [address] [id number] [place] [address] 18 Jan, 2013 [facility] [place] [facility] [address] [id number] [place] [address] 15 Jan, 2013 [facility] [place] [facility] [address] [id number] [place] [address] 15 Jan, 2013 [facility] [place] [facility] [address] [id number] [place] [address] Jan, [facility] [place] [facility] [address] [id number] [place] [address] Jan, [facility] [place] [facility] [address] [id number], [place] [address] Jan, [facility] [place] [facility] [address] [id number], [place] [address] Jan, [facility] [place] [facility] [address] [id number], [place] [address] Jan, [facility] [place] [facility] [address] [id number], [place] [address] Jan, [facility] [place] [facility] [address] [id number], [place] [address] Dec, [facility] [place] [facility] [address] [id number], [place] [address] Dec, [facility] [place] [facility] [address] [id number], [place] [address] Dec, [facility] [place] [facility] [address] [id number], [place] [address] Dec, [facility] [place] [facility] [address] [id number], [place] [address] Nov, [facility] [place] [facility] [address] [id number] [place] [address] 24 Nov, 2012 [facility] [place] [facility] [address] [id number] [place] [address] Nov, [facility] [place] [facility] [address] [id number] [place] [address] Oct, [facility] [place] [facility] [address] [id number] [place] [address] Oct, [facility] [place] [facility] [address] [id number] [place] [address] Oct, [facility] [place] [facility] [address] [id number] [place] [address] Oct, [facility] [address] [id number] [place] [address] Oct, [facility] [place] [facility] [address] [id number] [place] [address] Oct, [facility] [place] [facility] [address] [id number] [place] [address] Sep, [facility] [place] [facility] [address] [id number] [place] [address] Sep, [facility] [place] [facility] [address] [id number] [place] [address] Sep, [facility] [place] [facility] [address] [id number] [place] [address] Sep, [facility] [place] [facility] [address] [id number] [place] [address] Sep, [facility] [place] [facility] [address] [id number] [place] [address] Sep, [facility] [place] [facility] [address] [id number] [place] [address] Sep, [facility] [place] [facility] [address] [id number] [place] [address] Sep, [facility] [place] [facility] [address] [id number] [place] [address] Sep, [facility] [place] [facility] [address] [id number] [place] [address] Aug, [facility] [place] [facility] [address] [id number] [place] [address] Aug, [facility] [place] [facility] [address] [id number] [place] [address] Aug, [facility] [place] [facility] [address] [id number] [place] [address] Aug, [facility] [place] [facility] [address] [id number] [place] [address] Aug, [facility] [place] [facility] [address] [id number] [place] [address] Aug, [facility] [place] [facility] [address] [id number] [place] [address] Aug, [facility] [place] [facility] [address] [id number] [place] [address] July, [facility] [place] [facility] [address] [id number] [place] [address] July, [facility] [place] [facility] [address] [id number] [place] [address] July, [facility] [place] [facility] [address] [id number] [place] [address] Jun, [facility] [place] [facility] [address] [id number] [place] [address] Jun, [facility] [place] [facility] [address] [id number] [place] [address] Jun, [facility] [place] [facility] [address] [id number] [place] [address] 02 Jun, 2012 [facility] [address] [id number] [place] [address] 29 May, 2012 [facility] [address] [id number] [place] [address] 18 May, 2012 [facility] [address] [id number] [place] [address] 18 May, 2012 [facility] [address] [id number] [place] [address] 15 May, 2012 [facility] [address] [id number] [place] [address] 14 May, 2012 [facility] [address] [id number] [place] [address] 07 May, 2012 [facility] [address] [id number] [place] [address] 06 May, 2012 [facility] [address] [id number] [place] [address] 04 May, 2012 [facility] [address] [id number] [place] [address] 18 Apr, 2012 [facility] [address] [id number] [place] [address] 17 Feb, 2012 [facility] [address] [id number] [place] [address] 17 Feb, 2012 [facility] [place] [facility] [address] [id number] [address] 17 Feb, 2012 [facility] [place] [facility] [address] [id number] [place] [address] 17 Feb, 2012 [facility] [place] [facility] [address] [id number] [place] [address] 13 Feb, 2012 [facility] [place] [facility] [address] [facility] [id number] [place] [address] 13 Feb, 2012 [facility] [place] [facility] [address] [id number] [place] [address] Feb, [facility] [place] [facility] [address] [id number] [place] [address] Feb, [facility] [place] [facility] [address] [id number] [place] [address] Feb, [facility] [place] [facility] [address] [id number] [place] [address] Feb, [facility] [place] [facility] [address] [id number] [place] [address] Jan, [facility] [place] [facility] [address] [id number] [place] [address] Jan, [facility] [place] [facility] [address] [id number] [place] [address] Jan, [facility] [place] [facility] [address] [id number] [place] [address] Jan, [facility] [place] [facility] [address] [id number] [place] [address] Jan, [facility] [place] [facility] [address] [id number] [place] [address] Jan, [facility] [place] [facility] [address] [facility] [id number] [place] [address] Jan, [facility] [place] [facility] [address] [id number] [place] [address] Jan, [facility] [place] [facility] [address] [id number] [place] [address] Dec, [facility] [place] [facility] [address] [id number] [place] [address] Dec, [facility] [place] [facility] [address] [facility] [id number] [place] [address] Dec, [facility] [place] [facility] [address] [id number] [place] [address] Dec, [facility] [place] [facility] [address] [id number] [place] [address] Dec, [facility] [place] [facility] [address] [id number] [place] [address] Dec, [facility] [place] [facility] [address] [id number] [place] [address] Dec, [facility] [place] [facility] [address] [id number] [place] [address] Nov, [facility] [place] [facility] [address] [id number] [place] [address] Nov, [facility] [place] [facility] [address] [id number] [place] [address] Nov, [facility] [place] [facility] [address] [id number] [place] [address] Oct, [facility] [place] [facility] [address] [id number] [place] [address] Oct, [facility] [place] [facility] [address] [id number] [place] [address] Oct, [facility] [place] [facility] [address] [id number] [place] [address] Oct, [facility] [place] [facility] [address] [id number] [place] [address] Sep, [facility] [place] [facility] [address] [id number] [place] [address] Sep, [facility] [place] [facility] [address] [id number] [place] [address] Sep, [facility] [place] [facility] [address] [id number] [place] [address] Aug, [facility] [place] [facility] [address] [id number] [place] [address] Aug, [facility] [place] [facility] [address] [id number] [place] [address] July, [facility] [address] [id number] [place] [address] July, [facility] [address] [id number] [place] [address] July, [facility] [address] [id number] [place] [address] Jun, [facility] [place] [facility] [address] [id number] [place] [address] Jun, [facility] [address] [id number] [place] [address] May, [facility] [place] [facility] [address] [id number] [place] [address] Apr, [facility] [address] [id number] [place] [address] Apr, [facility] [place] [facility] [address] [id number] [place] [address] Apr, [facility] [address] [id number] [place] [address] Mar, [facility] [address] [id number] [place] [address] Mar, [facility] [address] [id number] [place] [address] Mar, [facility] [place] [facility] [address] [id number] [place] [address] Mar, [facility] [place] [facility] [address] [id number] [place] [address] Feb, [facility] [place] [facility] [address] [id number] [place] [address] Feb, [facility] [place] [facility] [address] [id number] [place] [address] Feb, [facility] [place] [facility] [address] [id number] [place] [address] 05 Feb, 2011 [facility] [place] [facility] [address] [id number] [place] [address] 30 Jan, 2011 [facility] [place] [facility] [address] [id number] [place] [address] Jan, [facility] [place] [facility] [address] [id number] [place] [address] Jan, [facility] [place] [facility] [address] [id number] [place] [address] Jan, [facility] [place] [facility] [address] [id number] [place] [address] Jan, [facility] [place] [facility] [address] [id number] [place] [address] Dec, [facility] [place] [facility] [address] [id number] [place] [address] Sep, [facility] [place] [facility] [address] [id number] [place] [address] 31 Feb, 2010 [facility] [place] [facility] [address] [id number] [place] [address] 30 Feb, 2010 [facility] [place] [facility] [address] [id number] [place] [address] Feb, [facility] [place] [facility] [address] [id number] [place] [address] 29 Dec, 2009 [facility] [place] [facility] [address] [id number] [place] [address] Dec, [facility] [place] [facility] [address] [id number] [place] [address] Oct, [facility] [place] [facility] [address] [id number] [place] [address] Aug, [facility] [place] [facility] [address] [id number] [place] [address] Feb, [facility] [address] [facility] [id number], [place] [address] Feb, [facility] [address] [facility] [id number], [place] [address] Jan, [facility] [address] [facility] [id number], [place] [address] Jan, [facility] [id number] [address] Dec, [facility] [address] [facility] [id number], [place] [address] Dec, [facility] [address] [facility] [id number], [place] [address] Nov, IMMUNIZATIONS No Known Immunizations SOCIAL HISTORY Never Assessed REASON FOR VISIT pt stood up and threw himself on the floor this am. staff thinks he might have b roke his nose. [email or web address] PLAN OF CARE Activity Details Follow Up prn Reason: VITAL SIGNS Height 68 in 2017-03-24 Weight 177 lbs 2017-03-24 Temperature 97.6 degrees Fahrenheit 2017-03-24 Heart Rate 88 bpm 2017-03-24 Respiratory Rate 20 2017-03-24 BMI 26.91 kg/m2 2017-03-24 Blood pressure systolic 122 mmHg 2017-03-24 Blood pressure diastolic 74 mmHg 2017-03-24 MEDICATIONS Medication Instructions Dosage Frequency Start Date End Date Duration Status Clozapine 100 MG 1 tablet 3 tabs in the AM and HS; Take 2 tabs at 3PM Active Depakote ER 500 mg Orally 1 time per day 4 Tablet Active Clonazepam 2 MG Orally for anxiety 1/2 tablet at 3pm and 1.5 tablets at HS Oct, Active Seroquel 200 MG Orally Once a day at bedtime 1 tablet Active Trintellix 10 mg Orally Once a day for depression 1 tablet Mar, 30 day(s) Active Haloperidol 2 MG 1 Tablet by Oral route 1 time per day Active RESULTS No Results PROCEDURES Procedure Date Ordered Result Body Site [facility] VISIT ESTABLISHED PATIENT Mar 24, 2017 INSTRUCTIONS MEDICATIONS ADMINISTERED No Known Medications MEDICAL (GENERAL) HISTORY Type Description Date Medical History High Blood Pressure Medical History Fainting/Seizures/Epilepsy Medical History Moderate MR Medical History GERD Medical History Hyperlipidemia Medical History Paranoid Schizophrenia Medical History incontenance Medical History 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
--- OUTSIDE RECORDS SUMMARY | 2018-09-29 17:46 | XMS REPORT ---
Author Author CLAUS MCDONALD [facility] Address [address] [place] [address] Care Team Providers Care Vacuum Repairer Name Role Phone HARRY CLAUS Unavailable PROBLEMS Type Condition ICD9-CM Code EMO93-RT Code Onset Dates Condition Status SNOMED Code Problem Hyperlipemia E78.5 Active 08558135 Problem High risk medication use Z79.899 Active 266794858 Problem Seizures R56.9 Active 16862848 Problem Intermittent explosive disorder 312.34 Active 51934828 Problem Paranoid schizophrenia, chronic condition 295.32 Active 55564346 Problem Mildly mentally retarded F70 Active 38106136 Problem Constipation, unspecified constipation type K59.00 Active 75981362 Problem Severe episode of recurrent major depressive disorder, with psychotic features F33.3 Active 69019035 Problem Paranoid schizophrenia, chronic condition F20.0 Active 11870792 Problem Stress incontinence, male N39.3 Active 890789146 Problem Unsteady gait R26.81 Active 43878955 Problem Mild intellectual disabilities F70 Active [id number] ALLERGIES No Information ENCOUNTERS Encounter Location Date Diagnosis [facility] [id number] [place] [address] Oct, [facility] [id number] [place] [address] Sep, [facility] [id number] [place] [address] July, Paranoid schizophrenia, chronic condition F20.0 and Mild intellectual disabilities F70 [facility] [id number] [place] [address] Jun, Paranoid schizophrenia, chronic condition F20.0 [facility] [id number] [place] [address] May, [facility] [id number] [place] [address] 13 Apr, 2017 Paranoid schizophrenia, chronic condition F20.0 ; Mild intellectual disabilities F70 and High risk medication use Z79.899 [facility] [id number] [place] [address] 08 Apr, 2017 [facility] [id number] [place] [address] Mar, [facility] [id number] [place] [address] Mar, [facility] [id number] [place] [address] Mar, Contusion of nose, initial encounter S00.33XA [facility] [id number] [place] [address] Mar, Paranoid schizophrenia, chronic condition F20.0 ; Severe episode of recurrent major depressive disorder, with psychotic features F33.3 and Mild intellectual disabilities F70 [facility] [id number] [place] [address] Mar, Constipation, unspecified constipation type K59.00 and Abrasion of right ear, initial encounter S00.411A [facility] [id number] [place] [address] Mar, [facility] [id number] [place] [id number] Feb, Encounter for dental examination and cleaning without abnormal findings Z01.20 [facility] [id number] [place] [address] Feb, [facility] [id number] [place] [address] Feb, Paranoid schizophrenia, chronic condition F20.0 ; Mild intellectual disabilities F70 and High risk medication use Z79.899 [facility] [address] [place] [address] Jan, [facility] [id number] [place] [address] Jan, Unsteady gait R26.81 [facility] [id number] [address] Dec, Encounter for immunization Z23 [facility] [id number] [place] [address] Nov, [facility] [id number] [place] [address] Oct, Paranoid schizophrenia, chronic condition F20.0 ; Mild intellectual disabilities F70 and High risk medication use Z79.899 [facility] [id number] [place] [address] Sep, [facility] [id number] [place] [address] July, [facility] [id number] [place] [address] Jun, High risk medication use Z79.899 [facility] [id number] [place] [address] Apr, [facility] [address] [address] Apr, Paranoid schizophrenia, chronic condition F20.0 ; Mild intellectual disabilities F70 and High risk medication use Z79.899 [facility] [id number] [address] Apr, [facility] [id number] [place] [address] Feb, [facility] [id number] [place] [address] Jan, [facility] [id number] [place] [address] Jan, [facility] [address] [facility] [id number] [address] Jan, Paranoid schizophrenia, chronic condition F20.0 [facility] [id number] [address] Dec, Paranoid schizophrenia, chronic condition F20.0 ; Mild intellectual disabilities F70 and High risk medication use Z79.899 [facility] [address] [address] Dec, [facility] [id number] [address] Nov, Paranoid schizophrenia, chronic condition F20.0 ; Mild intellectual disabilities F70 and High risk medication use Z79.899 [facility] [address] [address] Oct, [facility] [id number] [address] Oct, [facility] [id number] [address] Oct, [facility] [address] [address] Oct, [facility] [address] [address] Aug, [facility] [id number] [address] Jun, Paranoid schizophrenia, chronic condition F20.0 ; High risk medication use Z79.899 and Mild intellectual disabilities F70 [facility] [id number] [address] Apr, High risk medication use Z79.899 ; Paranoid schizophrenia, chronic condition F20.0 and Mild intellectual disabilities F70 [facility] [address] [id number] Apr, Encounter for dental examination Z01.20 [facility] [address], [place] [address] Apr, [facility] [id number] [place] [address] Mar, Paranoid schizophrenia, chronic condition F20.0 ; Mildly mentally retarded F70 and High risk medication use Z79.899 [facility] [id number] [place] [address] Feb, Paranoid schizophrenia F20.0 [facility] [id number] [place] [address] Dec, [facility] [id number] [place] [address] Dec, Paranoid schizophrenia, chronic condition F20.0 and Mild mental retardation F70 [facility] [id number] [place] [address] Dec, [facility] [id number] [place] [address] Dec, [facility] [id number] [place] [address] Dec, [facility] [address] [address] Dec, High risk medication use Z79.899 and Hyperlipemia E78.5 [facility] [address], [place] [address] Nov, [facility] [id number] [place] [address] Sep, [facility] [id number] [place] [address] Sep, Paranoid schizophrenia, chronic condition 295.32 and Mild mental retardation 317 [facility] [id number] [place] [address] 14 Jun, 2014 [facility] [place] [facility] [address] [id number] [place] [address] 13 Jun, 2014 [facility] [place] [facility] [address] [id number] [place] [address] Apr, 2014 [facility] [place] [facility] [address] [id number] [place] [address] Apr, 2014 [facility] [place] [facility] [address] [id number] [place] [address] Apr, 2014 [facility] [place] [facility] [address] [id number] [place] [address] Apr, 2014 [facility] [place] [facility] [address] [id number] [place] [address] Apr, [facility] [place] [facility] [address] [id number] [place] [address] Apr, [facility] [place] [facility] [address] [id number] [place] [address] Mar, [facility] [place] [facility] [address] [id number] [place] [address] Mar, [facility] [place] [facility] [address] [facility] [id number] [place] [address] Mar, [facility] [place] [facility] [address] [id number] [place] [address] Mar, [facility] [place] [facility] [address] [id number] [place] [address] Mar, [facility] [place] [facility] [address] [id number] [place] [address] Mar, [facility] [place] [facility] [address] [facility] [id number] [place] [address] Feb, [facility] [place] [facility] [address] [id number] [place] [address] Feb, [facility] [place] [facility] [address] [id number] [place] [address] Jan, [facility] [place] [facility] [address] [id number] [place] [address] Jan, [facility] [place] [facility] [address] [id number] [place] [address] Jan, [facility] [place] [facility] [address] [id number] [place] [address] Jan, [facility] [place] [facility] [address] [id number] [place] [address] Jan, [facility] [place] [facility] [address] [id number] [place] [address] Jan, [facility] [place] [facility] [address] [id number] [place] [address] Jan, [facility] [place] [facility] [address] [id number] [place] [address] Dec, [facility] [place] [facility] [address] [id number] [place] [address] Dec, [facility] [place] [facility] [address] [id number] [place] [address] Dec, [facility] [place] [facility] [address] [id number] [place] [address] Dec, [facility] [place] [facility] [address] [id number], [place] [address] Dec, [facility] [place] [facility] [address] [id number] [place] [address] Dec, [facility] [place] [facility] [address] [id number] [place] [address] Dec, [facility] [place] [facility] [address] [id number], [place] [address] Dec, [facility] [place] [facility] [address] [id number], [place] [address] Nov, [facility] [place] [facility] [address] [id number] [place] [address] Nov, [facility] [place] [facility] [address] [id number] [place] [address] Nov, [facility] [place] [facility] [address] [id number] [place] [address] Nov, [facility] [place] [facility] [address] [id number] [place] [address] Oct, [facility] [place] [facility] [address] [id number] [place] [address] Oct, [facility] [place] [facility] [address] [id number] [place] [address] Oct, [facility] [place] [facility] [address] [id number] [place] [address] Oct, [facility] [place] [facility] [address] [id number] [place] [address] Oct, [facility] [place] [facility] [address] [id number] [place] [address] Oct, [facility] [place] [facility] [address] [id number] [place] [address] Sep, [facility] [place] [facility] [address] [id number] [place] [address] Sep, [facility] [place] [facility] [address] [id number] [place] [address] Sep, [facility] [place] [facility] [address] [id number] [place] [address] Sep, [facility] [place] [facility] [address] [id number] [place] [address] Sep, [facility] [place] [facility] [address] [id number] [place] [address] Sep, [facility] [place] [facility] [address] [id number] [place] [address] Sep, [facility] [place] [facility] [address] [id number] [place] [address] Sep, [facility] [place] [facility] [address] [id number] [place] [address] Sep, [facility] [place] [facility] [address] [id number] [place] [address] Sep, [facility] [place] [facility] [address] [id number] [place] [address] Aug, [facility] [place] [facility] [address] [id number] [place] [address] Aug, [facility] [place] [facility] [address] [id number] [place] [address] Aug, [facility] [place] [facility] [address] [id number] [place] [address] Aug, [facility] [place] [facility] [address] [id number] [place] [address] Aug, [facility] [place] [facility] [address] [id number] [place] [address] Aug, [facility] [place] [facility] [address] [id number] [place] [address] Aug, [facility] [place] [facility] [address] [id number] [place] [address] Aug, [facility] [place] [facility] [address] [id number] [place] [address] Aug, [facility] [place] [facility] [address] [id number] [place] [address] Aug, [facility] [place] [facility] [address] [id number] [place] [address] July, [facility] [place] [facility] [address] [id number] [place] [address] July, [facility] [place] [facility] [address] [id number] [place] [address] July, [facility] [place] [facility] [address] [id number] [place] [address] July, [facility] [place] [facility] [address] [id number] [place] [address] July, [facility] [place] [facility] [address] [id number] [place] [address] July, [facility] [place] [facility] [address] [id number] [place] [address] July, [facility] [place] [facility] [address] [id number] [place] [address] July, [facility] [place] [facility] [address] [id number] [place] [address] Jun, [facility] [place] [facility] [address] [id number] [place] [address] Jun, [facility] [place] [facility] [address] [id number] [place] [address] Jun, [facility] [place] [facility] [address] [id number] [place] [address] Jun, [facility] [place] [facility] [address] [id number] [place] [address] May, [facility] [place] [facility] [address] [id number] [place] [address] May, [facility] [place] [facility] [address] [id number] [place] [address] May, [facility] [place] [facility] [address] [id number] [place] [address] May, [facility] [place] [facility] [address] [id number] [place] [address] May, [facility] [place] [facility] [address] [id number] [place] [address] May, [facility] [place] [facility] [address] [id number] [place] [address] Apr, [facility] [place] [facility] [address] [id number] [place] [address] Apr, [facility] [place] [facility] [address] [id number] [place] [address] Apr, [facility] [place] [facility] [address] [id number] [place] [address] Apr, [facility] [place] [facility] [address] [id number] [place] [address] Apr, [facility] [place] [facility] [address] [id number] [place] [address] Apr, [facility] [place] [facility] [address] [id number] [place] [address] Apr, [facility] [place] [facility] [address] [id number] [place] [address] Apr, [facility] [place] [facility] [address] [id number] [place] [address] Apr, [facility] [place] [facility] [address] [id number] [place] [address] Apr, [facility] [place] [facility] [address] [id number] [place] [address] Mar, [facility] [place] [facility] [address] [id number] [place] [address] Mar, [facility] [place] [facility] [address] [id number] [place] [address] Mar, [facility] [place] [facility] [address] [id number] [place] [address] Mar, [facility] [place] [facility] [address] [id number] [place] [address] Mar, [facility] [place] [facility] [address] [id number] [place] [address] Mar, [facility] [place] [facility] [address] [id number] [place] [address] Mar, [facility] [place] [facility] [address] [id number] [place] [address] Mar, [facility] [place] [facility] [address] [id number] [place] [address] Feb, [facility] [place] [facility] [address] [id number] [place] [address] Feb, [facility] [place] [facility] [address] [id number] [place] [address] Feb, [facility] [place] [facility] [address] [id number] [place] [address] Feb, [facility] [place] [facility] [address] [id number] [place] [address] Feb, [facility] [place] [facility] [address] [id number] [place] [address] Feb, [facility] [place] [facility] [address] [id number] [place] [address] Feb, [facility] [place] [facility] [address] [id number], [place] [address] Feb, [facility] [place] [facility] [address] [id number], [place] [address] Feb, [facility] [place] [facility] [address] [id number] [place] [address] Feb, [facility] [place] [facility] [address] [id number] [place] [address] Jan, [facility] [place] [facility] [address] [id number] [place] [address] Jan, [facility] [place] [facility] [address] [id number] [place] [address] 20 Jan, 2013 [facility] [address] [id number] [place] [address] 20 Jan, 2013 [facility] [place] [facility] [address] [id number] [place] [address] 18 Jan, 2013 [facility] [place] [facility] [address] [id number] [place] [address] 15 Jan, 2013 [facility] [place] [facility] [address] [id number] [place] [address] 15 Jan, 2013 [facility] [place] [facility] [address] [id number] [place] [address] 14 Jan, 2013 [facility] [place] [facility] [address] [id number] [place] [address] 14 Jan, 2013 [facility] [place] [facility] [address] [id number] [place] [address] 06 Jan, 2013 [facility] [place] [facility] [address] [id number] [place] [address] 06 Jan, 2013 [facility] [place] [facility] [address] [id number] [place] [address] 05 Jan, 2013 [facility] [place] [facility] [address] [facility] [id number] [place] [address] 05 Jan, 2013 [facility] [place] [facility] [address] [id number] [place] [address] Dec, [facility] [place] [facility] [address] [id number] [address] Dec, [facility] [place] [facility] [address] [id number] [place] [address] Dec, [facility] [place] [facility] [address] [id number] [place] [address] Dec, [facility] [place] [facility] [address] [id number], [place] [address] 27 Nov, 2012 [facility] [place] [facility] [address] [id number] [place] [address] Nov, [facility] [place] [facility] [address] [id number] [place] [address] Nov, [facility] [place] [facility] [address] [id number] [place] [address] Oct, [facility] [place] [facility] [address] [id number] [place] [address] Oct, [facility] [place] [facility] [address] [id number] [place] [address] Oct, [facility] [place] [facility] [address] [id number] [place] [address] Oct, [facility] [place] [facility] [address] [id number] [place] [address] Oct, [facility] [place] [facility] [address] [id number] [place] [address] Oct, [facility] [place] [facility] [address] [id number] [place] [address] Sep, [facility] [place] [facility] [address] [id number] [place] [address] Sep, [facility] [place] [facility] [address] [id number] [place] [address] Sep, [facility] [place] [facility] [address] [id number] [place] [address] Sep, [facility] [place] [facility] [address] [id number] [place] [address] Sep, [facility] [place] [facility] [address] [id number] [place] [address] Sep, [facility] [place] [facility] [address] [id number] [place] [address] Sep, [facility] [place] [facility] [address] [id number] [place] [address] Sep, [facility] [address] [id number] [place] [address] Sep, [facility] [place] [facility] [address] [id number] [place] [address] Aug, [facility] [place] [facility] [address] [id number] [place] [address] Aug, [facility] [place] [facility] [address] [id number] [place] [address] Aug, [facility] [place] [facility] [address] [id number] [place] [address] Aug, [facility] [place] [facility] [address] [id number] [place] [address] Aug, [facility] [place] [facility] [address] [id number] [place] [address] Aug, [facility] [place] [facility] [address] [id number] [place] [address] Aug, [facility] [place] [facility] [address] [id number] [place] [address] July, [facility] [place] [facility] [address] [id number] [place] [address] July, [facility] [place] [facility] [address] [id number] [place] [address] July, [facility] [place] [facility] [address] [id number] [place] [address] Jun, [facility] [place] [facility] [address] [id number] [place] [address] Jun, [facility] [place] [facility] [address] [id number] [place] [address] Jun, [facility] [place] [facility] [address] [id number] [place] [address] Jun, [facility] [place] [facility] [address] [id number] [place] [address] 29 May, 2012 [facility] [address] [id number] [place] [address] 18 May, 2012 [facility] [address] [id number] [place] [address] 18 May, 2012 [facility] [address] [id number] [place] [address] 15 May, 2012 [facility] [address] [id number] [place] [address] 14 May, 2012 [facility] [address] [id number] [place] [address] 07 May, 2012 [facility] [address] [id number] [place] [address] 06 May, 2012 [facility] [address] [id number] [place] [address] 04 May, 2012 [facility] [address] [id number] [place] [address] 18 Apr, 2012 [facility] [address] [id number] [place] [address] 17 Feb, 2012 [facility] [address] [id number] [place] [address] 17 Feb, 2012 [facility] [address] [id number] [place] [address] 17 Feb, 2012 [facility] [address] [id number] [place] [address] 17 Feb, 2012 [facility] [address] [id number] [place] [address] 13 Feb, 2012 [facility] [address] [id number] [place] [address] 13 Feb, 2012 [facility] [address] [id number] [place] [address] Feb, [facility] [place] [facility] [address] [id number] [place] [address] Feb, [facility] [place] [facility] [address] [id number] [place] [address] Feb, [facility] [place] [facility] [address] [id number] [place] [address] Feb, [facility] [place] [facility] [address] [id number] [place] [address] Jan, [facility] [place] [facility] [address] [id number] [place] [address] Jan, [facility] [place] [facility] [address] [id number] [place] [address] Jan, [facility] [place] [facility] [address] [id number] [place] [address] Jan, [facility] [place] [facility] [address] [id number], [place] [address] Jan, [facility] [place] [facility] [address] [id number] [place] [address] Jan, [facility] [place] [facility] [address] [facility] [id number] [address] Jan, [facility] [place] [facility] [address] [id number], [place] [address] Jan, [facility] [place] [facility] [address] [id number], [place] [address] Dec, [facility] [place] [facility] [address] [id number], [place] [address] Dec, [facility] [place] [facility] [address] [id number], [place] [address] Dec, [facility] [place] [facility] [address] [facility] [id number], [place] [address] Dec, [facility] [place] [facility] [address] [id number], [place] [address] Dec, [facility] [place] [facility] [address] [id number] [place] [address] Dec, [facility] [place] [facility] [address] [id number] [place] [address] Dec, [facility] [place] [facility] [address] [id number] [place] [address] Nov, [facility] [place] [facility] [address] [id number] [place] [address] Nov, [facility] [place] [facility] [address] [id number] [place] [address] Nov, [facility] [place] [facility] [address] [id number] [place] [address] Oct, [facility] [place] [facility] [address] [id number] [place] [address] Oct, [facility] [place] [facility] [address] [id number] [place] [address] Oct, [facility] [place] [facility] [address] [id number] [place] [address] Oct, [facility] [place] [facility] [address] [id number] [place] [address] Sep, [facility] [place] [facility] [address] [id number] [place] [address] Sep, [facility] [place] [facility] [address] [id number] [place] [address] Sep, [facility] [place] [facility] [address] [id number] [place] [address] Aug, [facility] [place] [facility] [address] [id number] [place] [address] Aug, [facility] [place] [facility] [address] [facility] [id number] [place] [address] July, [facility] [place] [facility] [address] [id number] [place] [address] July, [facility] [place] [facility] [address] [id number] [place] [address] July, [facility] [place] [facility] [address] [id number] [place] [address] Jun, [facility] [place] [facility] [address] [id number] [place] [address] Jun, [facility] [place] [facility] [address] [id number] [place] [address] May, [facility] [place] [facility] [address] [id number] [place] [address] Apr, [facility] [place] [facility] [address] [id number] [place] [address] Apr, [facility] [place] [facility] [address] [id number] [place] [address] Apr, [facility] [place] [facility] [address] [id number] [place] [address] Mar, [facility] [place] [facility] [address] [id number] [place] [address] Mar, [facility] [place] [facility] [address] [id number] [place] [address] Mar, [facility] [place] [facility] [address] [id number] [place] [address] Mar, [facility] [place] [facility] [address] [id number] [place] [address] Feb, [facility] [place] [facility] [address] [id number] [place] [address] Feb, [facility] [place] [facility] [address] [id number] [place] [address] Feb, [facility] [place] [facility] [address] [id number] [place] [address] 05 Feb, 2011 [facility] [place] [facility] [address] [id number] [place] [address] 30 Jan, 2011 [facility] [place] [facility] [address] [id number] [place] [address] 17 Jan, 2011 [facility] [place] [facility] [address] [id number] [place] [address] 16 Jan, 2011 [facility] [place] [facility] [address] [id number] [place] [address] 16 Jan, 2011 [facility] [place] [facility] [address] [id number] [place] [address] Jan, [facility] [place] [facility] [address] [id number] [place] [address] Dec, [facility] [place] [facility] [address] [id number] [place] [address] Sep, [facility] [place] [facility] [address] [id number] [place] [address] 31 Feb, 2010 [facility] [place] [facility] [address] [id number] [place] [address] 30 Feb, 2010 [facility] [place] [facility] [address] [id number] [place] [address] Feb, [facility] [place] [facility] [address] [id number], [place] [address] 29 Dec, 2009 [facility] [place] [facility] [address] [id number], [place] [address] Dec, [facility] [place] [facility] [address] [id number] [place] [address] Oct, [facility] [place] [facility] [address] [id number] [place] [address] 15 Aug, 2009 [facility] [place] [facility] [address] [id number] [place] [address] 15 Feb, 2009 [facility] [place] [facility] [address] [id number], [place] [address] Feb, [facility] [id number], [place] [address] Jan, [facility] [id number], [place] [address] Jan, [facility] [id number], [place] [address] Dec, [facility] [id number], [place] [address] Dec, [facility] [id number], [place] [address] Nov, IMMUNIZATIONS No Known Immunizations SOCIAL HISTORY Never Assessed REASON FOR VISIT Medication question PLAN OF CARE VITAL SIGNS MEDICATIONS Medication Instructions Dosage Frequency Start Date End Date Duration Status Trazodone HCl 150 MG Orally for depression and sleep 1 tablet at bedtime 30 days Active RESULTS No Results PROCEDURES No [...]
--- OUTSIDE RECORDS SUMMARY | 2018-09-29 17:47 | XMS REPORT ---
Author Author CLAUS MCDONALD [facility] Address [address] [place] [address] Care Team Providers Care Director Of Event Management Name Role Phone HARRY CLAUS Unavailable PROBLEMS Type Condition ICD9-CM Code BYA95-ED Code Onset Dates Condition Status SNOMED Code Problem Hyperlipemia E78.5 Active 02033357 Problem High risk medication use Z79.899 Active 072741846 Problem Seizures R56.9 Active 97185161 Problem Intermittent explosive disorder 312.34 Active 47173697 Problem Paranoid schizophrenia, chronic condition 295.32 Active 40111721 Problem Mildly mentally retarded F70 Active 29084264 Problem Constipation, unspecified constipation type K59.00 Active 60752931 Problem Severe episode of recurrent major depressive disorder, with psychotic features F33.3 Active 85922703 Problem Paranoid schizophrenia, chronic condition F20.0 Active 49613819 Problem Stress incontinence, male N39.3 Active 549558749 Problem Unsteady gait R26.81 Active 89134592 Problem Mild intellectual disabilities F70 Active 49907037 ALLERGIES Substance Reaction Event Type Date Status Prozac Unknown Drug Allergy Oct, Active ENCOUNTERS Encounter Location Date Diagnosis [facility] [id number] [address] July, [facility] [id number] [place] [address] May, [facility] [id number], [place] [address] 13 Apr, 2017 Paranoid schizophrenia, chronic condition F20.0 ; Mild intellectual disabilities F70 and High risk medication use Z79.899 [facility] [address], [place] [address] 08 Apr, 2017 [facility] [id number] [place] [address] Mar, [place] [address] [address] Mar, [facility] [place] [address] [address] Mar, Contusion of nose, initial encounter S00.33XA [place] [address] [address] Mar, Paranoid schizophrenia, chronic condition F20.0 ; Severe episode of recurrent major depressive disorder, with psychotic features F33.3 and Mild intellectual disabilities F70 [facility] [address] [address] Mar, Constipation, unspecified constipation type K59.00 and Abrasion of right ear, initial encounter S00.411A [place] [address] [address] Mar, [facility] [address] [id number] Feb, Encounter for dental examination and cleaning without abnormal findings Z01.20 [place] [address] [address] Feb, [place] [address] [address] Feb, Paranoid schizophrenia, chronic condition F20.0 ; Mild intellectual disabilities F70 and High risk medication use Z79.899 [place] [address] [address] Jan, [facility] [address] [address] Jan, Unsteady gait R26.81 [place] [id number] [place] [address] Dec, Encounter for immunization Z23 [place] [address] [place] [address] Nov, [facility] [address], [place] [address] Oct, Paranoid schizophrenia, chronic condition F20.0 ; Mild intellectual disabilities F70 and High risk medication use Z79.899 [facility] [address], [place] [address] Sep, [facility] [address], [place] [address] July, [facility] [address], [place] [address] Jun, High risk medication use Z79.899 [facility] [address], [place] [address] Apr, [facility] [address] [id number], [place] [address] Apr, Paranoid schizophrenia, chronic condition F20.0 ; Mild intellectual disabilities F70 and High risk medication use Z79.899 [facility] [address], [place] [address] Apr, [facility] [address], [place] [address] Feb, [facility] [address], [place] [address] Jan, [facility] [address], [place] [address] Jan, [facility] [address], [place] [address] Jan, Paranoid schizophrenia, chronic condition F20.0 [facility] [address], [place] [address] Dec, Paranoid schizophrenia, chronic condition F20.0 ; Mild intellectual disabilities F70 and High risk medication use Z79.899 [facility] [address], [place] [address] Dec, [facility] [id number] [place] [address] Nov, Paranoid schizophrenia, chronic condition F20.0 ; Mild intellectual disabilities F70 and High risk medication use Z79.899 [facility] [id number] [place] [address] Oct, [facility] [id number] [place] [address] Oct, [facility] [id number] [place] [address] Oct, [facility] [id number] [place] [address] Oct, [facility] [id number] [place] [address] Aug, [facility] [id number] [place] [address] Jun, Paranoid schizophrenia, chronic condition F20.0 ; High risk medication use Z79.899 and Mild intellectual disabilities F70 [facility] [address] [place] [address] Apr, High risk medication use Z79.899 ; Paranoid schizophrenia, chronic condition F20.0 and Mild intellectual disabilities F70 [facility] [address] [id number] 17 Apr, 2015 Encounter for dental examination Z01.20 [facility] [id number] [place] [address] Apr, [facility] [address] [place] [address] Mar, Paranoid schizophrenia, chronic condition F20.0 ; Mildly mentally retarded F70 and High risk medication use Z79.899 [facility] [address], [place] [address] Feb, Paranoid schizophrenia F20.0 [facility] [address], [place] [address] Dec, [facility] [address], [place] [address] Dec, Paranoid schizophrenia, chronic condition F20.0 and Mild mental retardation F70 [facility] [address], [place] [address] Dec, [facility] [id number] [place] [address] Dec, [facility] [address], [place] [address] Dec, [facility] [id number] [place] [address] Dec, High risk medication use Z79.899 and Hyperlipemia E78.5 [facility] [address], [place] [address] Nov, [facility] [address], [place] [address] Sep, [facility] [address], [place] [address] Sep, Paranoid schizophrenia, chronic condition 295.32 and Mild mental retardation 317 [facility] [address], [place] [address] Jun, [facility] [id number], [place] [address] Jun, [facility] [address], [place] [address] Apr, [facility] [address], [place] [address] Apr, [facility] [place] [facility] [address] [id number] [place] [address] Apr, 2014 [facility] [place] [facility] [address] [id number] [place] [address] Apr, 2014 [facility] [place] [facility] [address] [id number] [place] [address] Apr, [facility] [place] [facility] [address] [id number] [place] [address] Apr, [facility] [place] [facility] [address] [id number] [place] [address] Mar, [facility] [place] [facility] [address] [id number] [place] [address] Mar, [facility] [place] [facility] [address] [id number] [place] [address] Mar, [facility] [place] [facility] [address] [id number] [place] [address] Mar, [facility] [place] [facility] [address] [id number] [place] [address] Mar, [facility] [place] [facility] [address] [id number] [place] [address] Mar, [facility] [place] [facility] [address] [id number] [place] [address] Feb, [facility] [place] [facility] [address] [id number] [place] [address] Feb, [facility] [place] [facility] [address] [id number] [place] [address] Jan, [facility] [place] [facility] [address] [id number] [place] [address] Jan, [facility] [place] [facility] [address] [id number] [place] [address] Jan, [facility] [place] [facility] [address] [id number] [place] [address] Jan, [facility] [place] [facility] [address] [id number] [place] [address] Jan, [facility] [place] [facility] [address] [id number] [place] [address] Jan, [facility] [place] [facility] [address] [id number] [place] [address] Jan, [facility] [place] [facility] [address] [id number] [place] [address] Dec, [facility] [place] [facility] [address] [id number] [place] [address] Dec, [facility] [place] [facility] [address] [id number] [place] [address] Dec, [facility] [place] [facility] [address] [id number] [place] [address] Dec, [facility] [place] [facility] [address] [id number] [place] [address] Dec, [facility] [place] [facility] [address] [id number] [place] [address] Dec, [facility] [place] [facility] [address] [id number] [place] [address] Dec, [facility] [place] [facility] [address] [id number] [place] [address] Dec, [facility] [place] [facility] [address] [id number] [place] [address] Nov, [facility] [place] [facility] [address] [id number] [place] [address] 17 Nov, 2013 [facility] [place] [facility] [address] [id number] [place] [address] 15 Nov, 2013 [facility] [place] [facility] [address] [id number] [place] [address] Nov, [facility] [place] [facility] [address] [id number] [place] [address] Oct, [facility] [place] [facility] [address] [id number] [place] [address] Oct, [facility] [place] [facility] [address] [id number] [place] [address] Oct, [facility] [place] [facility] [address] [id number] [place] [address] Oct, [facility] [place] [facility] [address] [id number] [place] [address] Oct, [facility] [place] [facility] [address] [id number] [place] [address] Oct, [facility] [place] [facility] [address] [id number] [place] [address] Sep, [facility] [place] [facility] [address] [id number] [place] [address] Sep, [facility] [place] [facility] [address] [id number] [place] [address] Sep, [facility] [place] [facility] [address] [id number] [place] [address] Sep, [facility] [place] [facility] [address] [id number] [place] [address] Sep, [facility] [place] [facility] [address] [id number] [place] [address] Sep, [facility] [place] [facility] [address] [id number] [place] [address] Sep, [facility] [place] [facility] [address] [id number] [place] [address] Sep, [facility] [place] [facility] [address] [id number] [place] [address] Sep, [facility] [place] [facility] [address] [id number] [place] [address] Sep, [facility] [place] [facility] [address] [id number] [place] [address] Aug, [facility] [place] [facility] [address] [id number] [place] [address] Aug, [facility] [place] [facility] [address] [id number] [place] [address] Aug, [facility] [place] [facility] [address] [id number] [place] [address] Aug, [facility] [place] [facility] [address] [id number] [place] [address] Aug, [facility] [place] [facility] [address] [id number] [place] [address] Aug, [facility] [place] [facility] [address] [id number] [place] [address] Aug, [facility] [place] [facility] [address] [id number] [place] [address] Aug, [facility] [place] [facility] [address] [id number] [place] [address] Aug, [facility] [place] [facility] [address] [id number] [place] [address] Aug, [facility] [place] [facility] [address] [id number] [place] [address] July, [facility] [place] [facility] [address] [id number] [place] [address] July, [facility] [place] [facility] [address] [id number] [place] [address] July, [facility] [place] [facility] [address] [id number] [place] [address] July, [facility] [place] [facility] [address] [id number] [place] [address] July, [facility] [place] [facility] [address] [id number] [place] [address] July, [facility] [place] [facility] [address] [id number] [place] [address] July, [facility] [place] [facility] [address] [id number] [place] [address] July, [facility] [place] [facility] [address] [id number] [place] [address] Jun, [facility] [place] [facility] [address] [id number] [place] [address] Jun, [facility] [place] [facility] [address] [id number] [place] [address] Jun, [facility] [place] [facility] [address] [id number] [place] [address] Jun, [facility] [place] [facility] [address] [id number] [place] [address] May, [facility] [place] [facility] [address] [id number] [place] [address] May, [facility] [place] [facility] [address] [id number] [place] [address] May, [facility] [place] [facility] [address] [id number] [place] [address] May, [facility] [place] [facility] [address] [id number] [place] [address] May, [facility] [place] [facility] [address] [id number] [place] [address] May, [facility] [place] [facility] [address] [id number] [place] [address] Apr, [facility] [place] [facility] [address] [id number] [place] [address] Apr, [facility] [place] [facility] [address] [id number] [place] [address] Apr, [facility] [place] [facility] [address] [id number] [place] [address] Apr, [facility] [place] [facility] [address] [id number] [place] [address] Apr, [facility] [place] [facility] [address] [facility] [id number] [place] [address] Apr, [facility] [place] [facility] [address] [id number] [place] [address] Apr, [facility] [place] [facility] [address] [id number] [place] [address] Apr, [facility] [place] [facility] [address] [facility] [id number] [place] [address] Apr, [facility] [place] [facility] [address] [facility] [id number] [place] [address] Apr, [facility] [place] [facility] [address] [facility] [id number] [place] [address] Mar, [facility] [place] [facility] [address] [facility] [id number] [place] [address] Mar, [facility] [place] [facility] [address] [facility] [id number] [place] [address] Mar, [facility] [place] [facility] [address] [id number] [place] [address] Mar, [facility] [place] [facility] [address] [id number] [place] [address] Mar, [facility] [place] [facility] [address] [id number] [place] [address] Mar, [facility] [place] [facility] [address] [facility] [id number] [place] [address] Mar, [facility] [place] [facility] [address] [facility] [id number] [place] [address] Mar, [facility] [place] [facility] [address] [id number] [place] [address] Feb, [facility] [place] [facility] [address] [id number] [place] [address] Feb, [facility] [place] [facility] [address] [id number] [place] [address] Feb, [facility] [place] [facility] [address] [id number] [place] [address] Feb, [facility] [place] [facility] [address] [id number] [place] [address] Feb, [facility] [place] [facility] [address] [id number] [place] [address] Feb, [facility] [place] [facility] [address] [id number] [place] [address] Feb, [facility] [place] [facility] [address] [id number] [place] [address] Feb, [facility] [place] [facility] [address] [id number] [place] [address] Feb, [facility] [place] [facility] [address] [id number] [place] [address] Feb, [facility] [place] [facility] [address] [id number] [place] [address] Jan, [facility] [place] [facility] [address] [id number] [place] [address] Jan, [facility] [place] [facility] [address] [id number] [place] [address] Jan, [facility] [place] [facility] [address] [id number] [place] [address] Jan, [facility] [place] [facility] [address] [id number] [place] [address] 18 Jan, 2013 [facility] [place] [facility] [address] [id number] [place] [address] Jan, [facility] [place] [facility] [address] [id number] [place] [address] 15 Jan, 2013 [facility] [place] [facility] [address] [id number] [place] [address] Jan, [facility] [place] [facility] [address] [id number] [place] [address] Jan, [facility] [place] [facility] [address] [id number] [place] [address] Jan, [facility] [place] [facility] [address] [id number] [place] [address] Jan, [facility] [place] [facility] [address] [id number] [place] [address] Jan, [facility] [place] [facility] [address] [id number] [place] [address] Jan, [facility] [place] [facility] [address] [id number], [place] [address] Dec, [facility] [place] [facility] [address] [id number], [place] [address] Dec, [facility] [place] [facility] [address] [id number], [place] [address] Dec, [facility] [place] [facility] [address] [id number], [place] [address] Dec, [facility] [place] [facility] [address] [id number], [place] [address] 27 Nov, 2012 [facility] [place] [facility] [address] [id number], [place] [address] 24 Nov, 2012 [facility] [place] [facility] [address] [id number], [place] [address] 13 Nov, 2012 [facility] [place] [facility] [address] [id number], [place] [address] Oct, [facility] [place] [facility] [address] [id number] [place] [address] Oct, [facility] [place] [facility] [address] [id number] [place] [address] Oct, [facility] [place] [facility] [address] [id number] [place] [address] Oct, [facility] [place] [facility] [address] [id number] [place] [address] Oct, [facility] [place] [facility] [address] [id number] [place] [address] Oct, [facility] [place] [facility] [address] [id number] [place] [address] Sep, [facility] [place] [facility] [address] [id number] [place] [address] Sep, [facility] [place] [facility] [address] [id number] [place] [address] Sep, [facility] [place] [facility] [address] [id number] [place] [address] Sep, [facility] [place] [facility] [address] [id number] [place] [address] Sep, [facility] [place] [facility] [address] [id number] [place] [address] Sep, [facility] [place] [facility] [address] [id number] [place] [address] Sep, [facility] [place] [facility] [address] [id number] [place] [address] Sep, [facility] [place] [facility] [address] [id number] [place] [address] Sep, [facility] [place] [facility] [address] [id number] [place] [address] Aug, [facility] [place] [facility] [address] [id number] [place] [address] Aug, [facility] [place] [facility] [address] [id number] [place] [address] 07 Aug, 2012 [facility] [address] [id number] [place] [address] Aug, [facility] [address] [id number] [place] [address] Aug, [facility] [address] [id number] [place] [address] Aug, [facility] [address] [id number] [place] [address] Aug, [facility] [address] [id number] [place] [address] July, [facility] [address] [id number] [place] [address] July, [facility] [address] [id number] [place] [address] July, [facility] [address] [id number] [place] [address] Jun, [facility] [address] [id number] [place] [address] Jun, [facility] [address] [id number] [place] [address] Jun, [facility] [address] [id number] [place] [address] Jun, [facility] [address] [id number] [place] [address] May, [facility] [place] [facility] [address] [id number] [place] [address] May, [facility] [address] [id number] [place] [address] May, [facility] [address] [id number] [place] [address] 15 May, 2012 [facility] [address] [id number] [place] [address] 14 May, 2012 [facility] [place] [facility] [address] [id number] [place] [address] 07 May, 2012 [facility] [place] [facility] [address] [id number] [place] [address] 06 May, 2012 [facility] [place] [facility] [address] [id number] [place] [address] 04 May, 2012 [facility] [place] [facility] [address] [id number] [place] [address] 18 Apr, 2012 [facility] [place] [facility] [address] [id number] [place] [address] 17 Feb, 2012 [facility] [address] [id number] [place] [address] 17 Feb, 2012 [facility] [place] [facility] [address] [id number] [place] [address] 17 Feb, 2012 [facility] [address] [id number] [place] [address] 17 Feb, 2012 [facility] [place] [facility] [address] [id number] [place] [address] 13 Feb, 2012 [facility] [address] [id number] [place] [address] 13 Feb, 2012 [facility] [place] [facility] [address] [id number] [place] [address] 12 Feb, 2012 [facility] [place] [facility] [address] [id number] [place] [address] 12 Feb, 2012 [facility] [place] [facility] [address] [id number] [place] [address] 03 Feb, 2012 [facility] [place] [facility] [address] [id number] [place] [address] 03 Feb, 2012 [facility] [place] [facility] [address] [id number] [place] [address] Jan, [facility] [place] [facility] [address] [id number] [place] [address] Jan, [facility] [place] [facility] [address] [id number] [place] [address] Jan, [facility] [place] [facility] [address] [id number] [place] [address] Jan, [facility] [place] [facility] [address] [id number] [place] [address] Jan, [facility] [place] [facility] [address] [id number] [place] [address] Jan, [facility] [place] [facility] [address] [id number] [place] [address] Jan, [facility] [place] [facility] [address] [id number] [place] [address] Jan, [facility] [place] [facility] [address] [id number] [place] [address] Dec, [facility] [place] [facility] [address] [id number] [place] [id number] Dec, [facility] [place] [facility] [address] [facility] [id number] [place] [address] Dec, [facility] [place] [facility] [address] [id number] [place] [address] Dec, [facility] [place] [facility] [address] [id number] [place] [address] Dec, [facility] [place] [facility] [address] [id number] [place] [address] Dec, [facility] [place] [facility] [address] [facility] [id number] [place] [address] Dec, [facility] [place] [facility] [address] [id number] [place] [address] Nov, [facility] [place] [facility] [address] [id number] [place] [address] Nov, [facility] [place] [facility] [address] [id number] [place] [address] Nov, [facility] [place] [facility] [address] [id number] [place] [address] Oct, [facility] [place] [facility] [address] [id number] [place] [address] Oct, [facility] [place] [facility] [address] [id number] [place] [address] Oct, [facility] [place] [facility] [address] [id number] [place] [address] Oct, [facility] [place] [facility] [address] [id number] [place] [address] Sep, [facility] [place] [facility] [address] [id number] [place] [address] Sep, [facility] [place] [facility] [address] [id number] [place] [address] Sep, [facility] [place] [facility] [address] [id number] [place] [address] Aug, [facility] [place] [facility] [address] [id number] [place] [address] Aug, [facility] [place] [facility] [address] [id number] [place] [address] July, [facility] [place] [facility] [address] [id number] [place] [address] July, [facility] [place] [facility] [address] [id number] [place] [address] July, [facility] [place] [facility] [address] [id number] [place] [address] Jun, [facility] [place] [facility] [address] [id number] [place] [address] Jun, [facility] [place] [facility] [address] [id number] [place] [address] May, [facility] [place] [facility] [address] [id number] [place] [address] Apr, [facility] [place] [facility] [address] [id number] [place] [address] Apr, [facility] [place] [facility] [address] [id number] [place] [address] Apr, [facility] [place] [facility] [address] [id number] [place] [address] Mar, [facility] [place] [facility] [address] [id number] [place] [address] Mar, [facility] [place] [facility] [address] [id number] [place] [address] Mar, [facility] [place] [facility] [address] [id number] [place] [address] Mar, [facility] [place] [facility] [address] [id number] [place] [address] Feb, [facility] [place] [facility] [address] [id number] [place] [address] Feb, [facility] [place] [facility] [address] [id number] [place] [address] Feb, [facility] [place] [facility] [address] [id number] [place] [address] Feb, [facility] [place] [facility] [address] [id number] [place] [address] 30 Jan, 2011 [facility] [place] [facility] [address] [id number] [place] [address] Jan, [facility] [place] [facility] [address] [id number] [place] [address] 16 Jan, 2011 [facility] [place] [facility] [address] [id number] [place] [address] 16 Jan, 2011 [facility] [place] [facility] [address] [id number] [place] [address] Jan, [facility] [place] [facility] [address] [id number] [place] [address] Dec, [facility] [place] [facility] [id number] [place] [address], [place] [address] Sep, [facility] [place] [facility] [address] [id number] [place] [address] Feb, [facility] [place] [facility] [address] [id number] [place] [address] 30 Feb, 2010 [facility] [place] [facility] [address] [id number] [place] [address] Feb, [facility] [place] [facility] [address] [id number] [place] [address] Dec, [facility] [place] [facility] [address] [id number] [place] [address] Dec, [facility] [place] [facility] [address] [id number] [place] [address] Oct, [facility] [place] [facility] [address] [id number] [place] [address] 15 Aug, 2009 [facility] [place] [facility] [address] [id number] [place] [address] 15 Feb, 2009 [facility] [place] [facility] [address] [id number] [place] [address] Feb, [facility] [place] [facility] [address] [id number] [place] [address] 30 Jan, 2009 [facility] [place] [facility] [address] [id number] [place] [address] Jan, [facility] [place] [facility] [address] [id number] [place] [address] Dec, [facility] [address] [facility] [id number] [place] [address] Dec, [facility] [address] [facility] [id number] [place] [address] Nov, IMMUNIZATIONS No Known Immunizations SOCIAL HISTORY Never Assessed REASON FOR VISIT f/u Мария Mckeon MA PLAN OF CARE Activity Details Follow Up 4 Months Reason: VITAL SIGNS Height 68 in 2016-10-07 Weight 197.6 lbs 2016-10-07 Heart Rate 116 bpm 2016-10-07 Respiratory Rate 22 2016-10-07 BMI 30.04 kg/m2 2016-10-07 Blood pressure systolic 132 mmHg 2016-10-07 Blood pressure diastolic 90 mmHg 2016-10-07 MEDICATIONS Medication Instructions Dosage Frequency Start Date End Date Duration Status Depakote ER 500 MG Orally 1 time per day 4 Tablet Active MiraLax 17 gram/dose 17 g by Oral route 1 time per day take daily Feb, Active Oxybutynin Chloride 5 MG Orally Twice a day 1 tablet by Oral route 2 times per day 12h Sep, Active Benztropine Mesylate 1 MG Orally 3 times a day; AM, 3PM and HS 1 Tablet Active Loratadine 10 mg 1 tablet by Oral route 1 time per day Apr, Active Protonix 40 mg 1 tablet by Oral route 1 time per day July, Active Metoprolol Succinate 25 mg 1 tablet by Oral route 1 time per day July, Active Docusate Sodium 100 mg take 1 capsule (100 mg) by oral route 2 times per day July, Active Lipitor 20 mg 1 tablet by Oral route 1 time per day Sep, Active Haloperidol 2 MG 1 Tablet by Oral route 1 time per day Active Seroquel 100 MG Orally Once a day at bedtime 1 tablet Active EPA 1000 MG Orally twice a day 1 capsule 12h Active Keppra 500 mg take 1 tablet (500 mg) by oral route 2 times per day July, Active Trazodone HCl 150 MG take 1 Tablet by Oral route 1 time per day qHS Active Clozapine 100 MG 1 tablet 3 tabs in the AM and HS; Take 2 tabs at 3PM Active Clonazepam 2 MG Orally for anxiety 1/2 tablet at 3pm and 1.5 tablets at HS 26 Oct, 2013 Active Folic Acid 1 mg 0.5 tablet by Oral route 1 time per day Apr, Active RESULTS No Results PROCEDURES Procedure Date Ordered Result Body Site [facility] VISIT ESTABLISHED PATIENT Oct 07, 2016 PSYTX COMPLEX INTERACTIVE Oct 07, 2016 INSTRUCTIONS MEDICATIONS ADMINISTERED No Known Medications MEDICAL (GENERAL) HISTORY Type Description Date Medical History High Blood Pressure Medical History Fainting/Seizures/Epilepsy Medical History Moderate MR Medical History GERD Medical History Hyperlipidemia Medical History Paranoid Schizophrenia Medical History incontenance Medical History 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
--- OUTSIDE RECORDS SUMMARY | 2018-09-29 17:48 | XMS REPORT ---
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 Name Role Phone HARRY CLAUS Unavailable PROBLEMS Type Condition ICD9-CM Code EGK68-PB Code Onset Dates Condition Status SNOMED Code Problem Hyperlipemia E78.5 Active 93372564 Problem High risk medication use Z79.899 Active 438183919 Problem Seizures R56.9 Active 86827535 Problem Intermittent explosive disorder 312.34 Active 76048151 Problem Paranoid schizophrenia, chronic condition 295.32 Active 54440380 Problem Mildly mentally retarded F70 Active 43493091 Problem Constipation, unspecified constipation type K59.00 Active 08552645 Problem Severe episode of recurrent major depressive disorder, with psychotic features F33.3 Active 36980976 Problem Paranoid schizophrenia, chronic condition F20.0 Active 92973263 Problem Stress incontinence, male N39.3 Active 364651214 Problem Unsteady gait R26.81 Active 90779212 Problem Mild intellectual disabilities F70 Active 12715615 ALLERGIES No Information ENCOUNTERS Encounter Location Date Diagnosis [facility] [id number] [place] [address] Oct, [facility] [id number] [place] [address] July, Paranoid schizophrenia, chronic condition F20.0 and Mild intellectual disabilities F70 [facility] [id number] [place] [address] Jun, Paranoid schizophrenia, chronic condition F20.0 [facility] [id number] [place] [address] May, [facility] [id number] [place] [address] 13 Apr, 2017 Paranoid schizophrenia, chronic condition F20.0 ; Mild intellectual disabilities F70 and High risk medication use Z79.899 [place] [id number] [place] [address] 08 Apr, 2017 [facility] [id number] [place] [address] Mar, [place] [address] [address] Mar, [facility] [id number] [place] [address] Mar, Contusion of nose, initial encounter S00.33XA [place] [address] [address] Mar, Paranoid schizophrenia, chronic condition F20.0 ; Severe episode of recurrent major depressive disorder, with psychotic features F33.3 and Mild intellectual disabilities F70 [facility] [id number] [place] [address] Mar, Constipation, unspecified constipation type K59.00 and Abrasion of right ear, initial encounter S00.411A [place] [id number] [place] [address] Mar, [facility] [address] [id number] Feb, Encounter for dental examination and cleaning without abnormal findings Z01.20 [place] [id number] [place] [address] Feb, [place] [address] [address] Feb, Paranoid schizophrenia, chronic condition F20.0 ; Mild intellectual disabilities F70 and High risk medication use Z79.899 [place] [id number] [place] [address] Jan, [facility] [address] [place] [address] Jan, Unsteady gait R26.81 [facility] [id number] [place] [address] Dec, Encounter for immunization Z23 [facility] [id number] [place] [address] Nov, [facility] [id number] [place] [address] Oct, Paranoid schizophrenia, chronic condition F20.0 ; Mild intellectual disabilities F70 and High risk medication use Z79.899 [facility] [id number] [place] [address] Sep, [facility] [id number] [place] [address] July, [facility] [id number] [place] [address] Jun, High risk medication use Z79.899 [facility] [id number] [place] [address] Apr, [facility] [id number] [place] [address] Apr, Paranoid schizophrenia, chronic condition F20.0 ; Mild intellectual disabilities F70 and High risk medication use Z79.899 [facility] [id number] [place] [address] Apr, [facility] [address] [address] Feb, [facility] [id number] [place] [address] Jan, [facility] [id number] [place] [address] Jan, [facility] [id number] [place] [address] Jan, Paranoid schizophrenia, chronic condition F20.0 [facility] [id number] [place] [address] Dec, Paranoid schizophrenia, chronic condition F20.0 ; Mild intellectual disabilities F70 and High risk medication use Z79.899 [facility] [id number] [place] [address] Dec, [facility] [id number] [place] [address] Nov, Paranoid schizophrenia, chronic condition F20.0 ; Mild intellectual disabilities F70 and High risk medication use Z79.899 [facility] [id number] [place] [address] Oct, [facility] [id number] [place] [address] Oct, [facility] [id number] [place] [address] Oct, [facility] [id number] [place] [address] Oct, [facility] [id number] [place] [address] Aug, [facility] [address] [place] [address] Jun, Paranoid schizophrenia, chronic condition F20.0 ; High risk medication use Z79.899 and Mild intellectual disabilities F70 [facility] [address] [place] [address] Apr, High risk medication use Z79.899 ; Paranoid schizophrenia, chronic condition F20.0 and Mild intellectual disabilities F70 [facility] [address] [id number] [id number] 17 Apr, 2015 Encounter for dental examination Z01.20 [facility] [id number] [address] Apr, [facility] [id number] [address] Mar, Paranoid schizophrenia, chronic condition F20.0 ; Mildly mentally retarded F70 and High risk medication use Z79.899 [facility] [address] [place] [address] Feb, Paranoid schizophrenia F20.0 [facility] [id number] [place] [address] Dec, [facility] [id number] [place] [address] Dec, Paranoid schizophrenia, chronic condition F20.0 and Mild mental retardation F70 [facility] [id number] [place] [address] Dec, [facility] [id number] [place] [address] Dec, [facility] [id number] [place] [address] Dec, [facility] [id number] [place] [address] Dec, High risk medication use Z79.899 and Hyperlipemia E78.5 [facility] [address] [place] [address] Nov, [facility] [id number] [address] Sep, [facility] [id number] [place] [address] Sep, Paranoid schizophrenia, chronic condition 295.32 and Mild mental retardation 317 [facility] [address] [place] [address] Jun, [facility] [id number] [place] [address] Jun, [facility] [place] [facility] [address] [id number] [place] [address] Apr, 2014 [facility] [place] [facility] [address] [id number] [place] [address] Apr, 2014 [facility] [place] [facility] [address] [id number] [place] [address] Apr, 2014 [facility] [place] [facility] [address] [id number] [place] [address] Apr, 2014 [facility] [place] [facility] [address] [id number] [place] [address] Apr, [facility] [place] [facility] [address] [id number] [place] [address] Apr, [facility] [place] [facility] [address] [id number] [place] [address] Mar, [facility] [place] [facility] [address] [id number] [place] [address] Mar, [facility] [place] [facility] [address] [id number] [place] [address] Mar, [facility] [place] [facility] [address] [facility] [id number] [place] [address] Mar, [facility] [place] [facility] [address] [id number] [place] [address] Mar, [facility] [place] [facility] [address] [id number] [place] [address] Mar, [facility] [place] [facility] [address] [id number] [place] [address] Feb, [facility] [place] [facility] [address] [id number] [place] [address] Feb, [facility] [place] [facility] [address] [id number] [place] [address] Jan, [facility] [place] [facility] [address] [id number] [place] [address] Jan, [facility] [place] [facility] [address] [id number] [place] [address] Jan, [facility] [place] [facility] [address] [id number] [place] [address] Jan, [facility] [place] [facility] [address] [id number] [place] [address] Jan, [facility] [place] [facility] [address] [id number] [place] [address] Jan, [facility] [place] [facility] [address] [id number] [place] [address] Jan, [facility] [place] [facility] [address] [id number] [place] [address] Dec, [facility] [place] [facility] [address] [id number] [place] [address] Dec, [facility] [place] [facility] [address] [id number] [place] [address] Dec, [facility] [place] [facility] [address] [id number] [place] [address] Dec, [facility] [place] [facility] [address] [id number] [place] [address] Dec, [facility] [place] [facility] [address] [id number], [place] [address] Dec, [facility] [place] [facility] [address] [id number] [place] [address] Dec, [facility] [place] [facility] [address] [id number] [place] [address] Dec, [facility] [place] [facility] [address] [id number] [place] [address] Nov, [facility] [place] [facility] [address] [id number], [place] [address] Nov, [facility] [place] [facility] [address] [id number] [place] [address] Nov, [facility] [place] [facility] [address] [id number] [place] [address] Nov, [facility] [place] [facility] [address] [id number] [place] [address] Oct, [facility] [place] [facility] [address] [id number] [place] [address] Oct, [facility] [place] [facility] [address] [id number] [place] [address] Oct, [facility] [place] [facility] [address] [id number] [place] [address] Oct, [facility] [place] [facility] [address] [id number] [place] [address] Oct, [facility] [place] [facility] [address] [id number] [place] [address] Oct, [facility] [place] [facility] [address] [id number] [place] [address] Sep, [facility] [place] [facility] [address] [id number] [place] [address] Sep, [facility] [place] [facility] [address] [id number] [place] [address] Sep, [facility] [place] [facility] [address] [id number] [place] [address] Sep, [facility] [place] [facility] [address] [id number] [place] [address] Sep, [facility] [place] [facility] [address] [id number] [place] [address] Sep, [facility] [place] [facility] [address] [id number] [place] [address] Sep, [facility] [place] [facility] [address] [id number] [place] [address] Sep, [facility] [place] [facility] [address] [id number] [place] [address] Sep, [facility] [place] [facility] [address] [id number] [place] [address] Sep, [facility] [place] [facility] [address] [id number] [place] [address] Aug, [facility] [place] [facility] [address] [id number] [place] [address] Aug, [facility] [place] [facility] [address] [id number] [place] [address] Aug, [facility] [place] [facility] [address] [id number] [place] [address] Aug, [facility] [place] [facility] [address] [id number] [place] [address] Aug, [facility] [place] [facility] [address] [id number] [place] [address] Aug, [facility] [place] [facility] [address] [id number] [place] [address] Aug, [facility] [place] [facility] [address] [id number] [place] [address] Aug, [facility] [place] [facility] [address] [id number] [place] [address] Aug, [facility] [place] [facility] [address] [id number] [place] [address] Aug, [facility] [place] [facility] [address] [id number] [place] [address] July, [facility] [place] [facility] [address] [id number] [place] [address] July, [facility] [place] [facility] [address] [id number] [place] [address] July, [facility] [place] [facility] [address] [id number] [place] [address] July, [facility] [place] [facility] [address] [id number] [place] [address] July, [facility] [place] [facility] [address] [id number] [place] [address] July, [facility] [place] [facility] [address] [id number] [place] [address] July, [facility] [place] [facility] [address] [id number] [place] [address] July, [facility] [place] [facility] [address] [id number] [place] [address] Jun, [facility] [place] [facility] [address] [id number] [place] [address] Jun, [facility] [place] [facility] [address] [id number] [place] [address] Jun, [facility] [place] [facility] [address] [id number] [place] [address] Jun, [facility] [place] [facility] [address] [id number] [place] [address] May, [facility] [place] [facility] [address] [id number] [place] [address] May, [facility] [place] [facility] [address] [id number] [place] [address] May, [facility] [place] [facility] [address] [id number] [place] [address] May, [facility] [place] [facility] [address] [id number] [place] [address] May, [facility] [place] [facility] [address] [id number] [place] [address] May, [facility] [place] [facility] [address] [id number] [place] [address] Apr, [facility] [place] [facility] [address] [id number] [place] [address] Apr, [facility] [place] [facility] [address] [id number] [place] [address] Apr, [facility] [place] [facility] [address] [id number] [place] [address] Apr, [facility] [place] [facility] [address] [id number] [place] [address] Apr, [facility] [place] [facility] [address] [id number] [place] [address] Apr, [facility] [place] [facility] [address] [id number] [place] [address] Apr, [facility] [place] [facility] [address] [id number] [place] [address] Apr, [facility] [place] [facility] [address] [id number] [place] [address] Apr, [facility] [place] [facility] [address] [id number] [place] [address] Apr, [facility] [place] [facility] [address] [id number] [place] [address] Mar, [facility] [place] [facility] [address] [id number] [place] [address] Mar, [facility] [place] [facility] [address] [id number] [place] [address] Mar, [facility] [place] [facility] [address] [id number] [place] [address] Mar, [facility] [place] [facility] [address] [id number] [place] [address] Mar, [facility] [place] [facility] [address] [id number] [place] [address] Mar, [facility] [address] [id number] [place] [address] Mar, [facility] [place] [facility] [address] [id number] [place] [address] Mar, [facility] [place] [facility] [address] [id number] [place] [address] Feb, [facility] [place] [facility] [address] [id number] [place] [address] Feb, [facility] [place] [facility] [address] [id number] [place] [address] Feb, [facility] [place] [facility] [address] [id number] [place] [address] Feb, [facility] [place] [facility] [address] [id number] [place] [address] Feb, [facility] [place] [facility] [address] [id number] [place] [address] Feb, [facility] [place] [facility] [address] [id number] [place] [address] Feb, [facility] [place] [facility] [address] [id number] [place] [address] Feb, [facility] [place] [facility] [address] [id number] [place] [address] Feb, [facility] [place] [facility] [address] [id number], [place] [address] Feb, [facility] [place] [facility] [address] [id number] [place] [address] Jan, [facility] [place] [facility] [address] [id number] [place] [address] Jan, [facility] [place] [facility] [address] [id number] [place] [address] Jan, [facility] [place] [facility] [address] [id number] [place] [address] 20 Jan, 2013 [facility] [address] [id number] [place] [address] 18 Jan, 2013 [facility] [place] [facility] [address] [id number] [place] [address] 15 Jan, 2013 [facility] [place] [facility] [address] [id number] [place] [address] 15 Jan, 2013 [facility] [place] [facility] [address] [id number] [place] [address] 14 Jan, 2013 [facility] [place] [facility] [address] [id number] [place] [address] 14 Jan, 2013 [facility] [place] [facility] [address] [id number] [place] [address] 06 Jan, 2013 [facility] [place] [facility] [address] [id number] [place] [address] 06 Jan, 2013 [facility] [place] [facility] [address] [id number] [place] [address] 05 Jan, 2013 [facility] [place] [facility] [address] [id number] [place] [address] 05 Jan, 2013 [facility] [place] [facility] [address] [id number] [place] [address] Dec, [facility] [place] [facility] [address] [id number] [place] [address] Dec, [facility] [place] [facility] [address] [id number], [place] [address] Dec, [facility] [place] [facility] [address] [id number] [place] [address] Dec, [facility] [place] [facility] [address] [id number] [place] [address] 27 Nov, 2012 [facility] [place] [facility] [address] [id number], [place] [address] 24 Nov, 2012 [facility] [place] [facility] [address] [id number] [place] [address] Nov, [facility] [place] [facility] [address] [id number] [place] [address] Oct, [facility] [place] [facility] [address] [id number] [place] [address] Oct, [facility] [place] [facility] [address] [id number] [place] [address] Oct, [facility] [place] [facility] [address] [id number] [place] [address] Oct, [facility] [place] [facility] [address] [id number] [place] [address] Oct, [facility] [place] [facility] [address] [id number] [place] [address] Oct, [facility] [place] [facility] [address] [id number] [place] [address] Sep, [facility] [place] [facility] [address] [id number] [place] [address] Sep, [facility] [place] [facility] [address] [id number] [place] [address] Sep, [facility] [place] [facility] [address] [id number] [place] [address] Sep, [facility] [place] [facility] [address] [id number] [place] [address] Sep, [facility] [place] [facility] [address] [id number] [place] [address] Sep, [facility] [place] [facility] [address] [id number] [place] [address] Sep, [facility] [place] [facility] [address] [id number] [place] [address] Sep, [facility] [place] [facility] [address] [id number] [place] [address] Sep, [facility] [address] [id number] [place] [address] Aug, [facility] [place] [facility] [address] [id number] [place] [address] Aug, [facility] [place] [facility] [address] [id number] [place] [address] Aug, [facility] [place] [facility] [address] [id number] [place] [address] Aug, [facility] [address] [id number] [place] [address] Aug, [facility] [place] [facility] [address] [id number] [place] [address] Aug, [facility] [place] [facility] [address] [id number] [place] [address] Aug, [facility] [place] [facility] [address] [id number] [place] [address] July, [facility] [address] [id number] [place] [address] July, [facility] [place] [facility] [address] [id number] [place] [address] July, [facility] [place] [facility] [address] [id number] [place] [address] Jun, [facility] [place] [facility] [address] [id number] [place] [address] 16 Jun, 2012 [facility] [place] [facility] [address] [id number] [place] [address] Jun, [facility] [place] [facility] [address] [id number] [place] [address] Jun, [facility] [place] [facility] [address] [id number] [place] [address] May, [facility] [place] [facility] [address] [id number] [place] [address] 18 May, 2012 [facility] [address] [id number] [place] [address] 18 May, 2012 [facility] [address] [id number] [place] [address] 15 May, 2012 [facility] [address] [id number] [place] [address] 14 May, 2012 [facility] [address] [id number] [place] [address] 07 May, 2012 [facility] [address] [id number] [place] [address] 06 May, 2012 [facility] [address] [id number] [place] [address] 04 May, 2012 [facility] [address] [id number] [place] [address] 18 Apr, 2012 [facility] [address] [id number] [place] [address] 17 Feb, 2012 [facility] [address] [id number] [place] [address] 17 Feb, 2012 [facility] [address] [id number] [place] [address] 17 Feb, 2012 [facility] [address] [id number] [place] [address] 17 Feb, 2012 [facility] [address] [id number] [place] [address] 13 Feb, 2012 [facility] [address] [address] [id number] [place] [address] 13 Feb, 2012 [facility] [address] [id number] [place] [address] 12 Feb, 2012 [facility] [address] [id number] [place] [address] Feb, [facility] [place] [facility] [address] [id number] [place] [address] Feb, [facility] [place] [facility] [address] [id number] [place] [address] Feb, [facility] [place] [facility] [address] [id number] [place] [address] Jan, [facility] [place] [facility] [address] [id number] [place] [address] Jan, [facility] [place] [facility] [address] [id number] [place] [address] Jan, [facility] [place] [facility] [address] [id number] [place] [address] Jan, [facility] [place] [facility] [address] [id number] [place] [address] Jan, [facility] [place] [facility] [address] [id number], [place] [address] Jan, [facility] [place] [facility] [address] [id number] [place] [address] Jan, [facility] [place] [facility] [address] [facility] [id number], [place] [address] Jan, [facility] [place] [facility] [address] [facility] [id number], [place] [address] Dec, [facility] [place] [facility] [address] [id number], [place] [address] Dec, [facility] [place] [facility] [address] [id number], [place] [address] Dec, [facility] [place] [facility] [address] [id number], [place] [address] Dec, [facility] [place] [facility] [address] [facility] [id number], [place] [address] Dec, [facility] [place] [facility] [address] [id number], [place] [address] Dec, [facility] [place] [facility] [address] [id number] [place] [address] Dec, [facility] [place] [facility] [address] [id number] [place] [address] Nov, [facility] [place] [facility] [address] [id number] [place] [address] Nov, [facility] [place] [facility] [address] [id number] [place] [address] Nov, [facility] [place] [facility] [address] [id number] [place] [address] Oct, [facility] [place] [facility] [address] [id number] [place] [address] Oct, [facility] [place] [facility] [address] [id number] [place] [address] Oct, [facility] [place] [facility] [address] [id number] [place] [address] Oct, [facility] [place] [facility] [address] [id number] [place] [address] Sep, [facility] [place] [facility] [address] [id number] [place] [address] Sep, [facility] [place] [facility] [address] [id number] [place] [address] Sep, [facility] [place] [facility] [address] [id number] [place] [address] Aug, [facility] [place] [facility] [address] [id number] [place] [address] Aug, [facility] [place] [facility] [address] [id number] [place] [address] July, [facility] [place] [facility] [address] [id number] [place] [address] July, [facility] [place] [facility] [address] [id number] [place] [address] July, [facility] [place] [facility] [address] [id number] [place] [address] Jun, [facility] [place] [facility] [address] [id number] [place] [address] Jun, [facility] [place] [facility] [address] [id number] [place] [address] May, [facility] [place] [facility] [address] [id number] [place] [address] Apr, [facility] [place] [facility] [address] [id number] [place] [address] Apr, [facility] [place] [facility] [address] [id number] [place] [address] Apr, [facility] [place] [facility] [address] [id number] [place] [address] Mar, [facility] [place] [facility] [address] [id number] [place] [address] Mar, [facility] [place] [facility] [address] [id number] [place] [address] Mar, [facility] [place] [facility] [address] [id number] [place] [address] Mar, [facility] [place] [facility] [address] [id number] [place] [address] Feb, [facility] [place] [facility] [address] [id number] [place] [address] Feb, [facility] [place] [facility] [address] [id number] [place] [address] Feb, [facility] [place] [facility] [address] [id number] [place] [address] Feb, [facility] [place] [facility] [address] [id number], [place] [address] 30 Jan, 2011 [facility] [place] [facility] [address] [id number] [place] [address] 17 Jan, 2011 [facility] [place] [facility] [address] [id number] [place] [address] 16 Jan, 2011 [facility] [place] [facility] [address] [id number] [place] [address] 16 Jan, 2011 [facility] [place] [facility] [address] [id number] [place] [address] Jan, [facility] [place] [facility] [address] [id number] [place] [address] 20 Dec, 2010 [facility] [place] [facility] [address] [id number] [place] [address] 18 Sep, 2010 [facility] [place] [facility] [address] [id number] [place] [address] 31 Feb, 2010 [facility] [place] [facility] [address] [id number] [place] [address] 30 Feb, 2010 [facility] [place] [facility] [address] [id number] [place] [address] 21 Feb, 2010 [facility] [place] [facility] [address] [id number] [place] [address] 29 Dec, 2009 [facility] [place] [facility] [address] [id number], [place] [address] 19 Dec, 2009 [facility] [place] [facility] [address] [id number], [place] [address] 20 Oct, 2009 [facility] [place] [facility] [address] [id number] [place] [address] 15 Aug, 2009 [facility] [place] [facility] [address] [id number] [place] [address] 15 Feb, 2009 [facility] [place] [facility] [address] [id number] [place] [address] 15 Feb, 2009 [facility] [place] [facility] [address] [facility] [id number] [place] [address] Jan, [facility] [address] [facility] [id number], [place] [address] Jan, [facility] [address] [id number], [place] [address] Dec, [facility] [address] [facility] [id number], [place] [address] Dec, [facility] [address] [facility] [id number], [place] [address] Nov, IMMUNIZATIONS No Known Immunizations SOCIAL HISTORY Never Assessed REASON FOR VISIT dionna refill PLAN OF CARE VITAL SIGNS MEDICATIONS Medication [...]
--- OUTSIDE RECORDS SUMMARY | 2018-09-29 17:49 | XMS REPORT ---
Author Author REINIER THAKKAR [facility] Address [address] [place] [address] Care Team Providers Care Bell Person Name Role Phone REINIER THAKKAR Unavailable PROBLEMS Type Condition ICD9-CM Code CUP57-MA Code Onset Dates Condition Status SNOMED Code Problem Hyperlipemia E78.5 Active 27350131 Problem High risk medication use Z79.899 Active 297941149 Problem Seizures R56.9 Active 59741350 Problem Intermittent explosive disorder 312.34 Active 93653993 Problem Paranoid schizophrenia, chronic condition 295.32 Active 40887001 Problem Mildly mentally retarded F70 Active 01106817 Problem Constipation, unspecified constipation type K59.00 Active 49088633 Problem Severe episode of recurrent major depressive disorder, with psychotic features F33.3 Active 80508778 Problem Paranoid schizophrenia, chronic condition F20.0 Active 52649287 Problem Stress incontinence, male N39.3 Active 634213678 Problem Unsteady gait R26.81 Active 81309079 Problem Mild intellectual disabilities F70 Active 87883354 ALLERGIES Substance Reaction Event Type Date Status Prozac Unknown Drug Allergy Jan, Active ENCOUNTERS Encounter Location Date Diagnosis [facility] [id number] [address] Oct, [facility] [id number] [place] [address] July, Paranoid schizophrenia, chronic condition F20.0 and Mild intellectual disabilities F70 [facility] [id number] [place] [address] Jun, Paranoid schizophrenia, chronic condition F20.0 [facility] [id number] [address] May, [facility] [id number] [place] [address] 13 Apr, 2017 Paranoid schizophrenia, chronic condition F20.0 ; Mild intellectual disabilities F70 and High risk medication use Z79.899 [facility] [id number] [place] [address] 08 Apr, 2017 [facility] [id number] [place] [address] Mar, [facility] [id number] [place] [address] Mar, [facility] [id number] [place] [address] Mar, Contusion of nose, initial encounter S00.33XA [facility] [id number] [place] [address] Mar, Paranoid schizophrenia, chronic condition F20.0 ; Severe episode of recurrent major depressive disorder, with psychotic features F33.3 and Mild intellectual disabilities F70 [facility] [id number] [place] [address] Mar, Constipation, unspecified constipation type K59.00 and Abrasion of right ear, initial encounter S00.411A [facility] [id number] [place] [address] Mar, [facility] [id number] [place] [id number] Feb, Encounter for dental examination and cleaning without abnormal findings Z01.20 [facility] [id number] [place] [address] Feb, [facility] [address] [address] 05 Feb, 2017 Paranoid schizophrenia, chronic condition F20.0 ; Mild intellectual disabilities F70 and High risk medication use Z79.899 [facility] [id number] [place] [address] Jan, [facility] [id number] [address] Jan, Unsteady gait R26.81 [facility] [id number] [address] Dec, Encounter for immunization Z23 [facility] [id number] [place] [address] Nov, [facility] [id number] [place] [address] Oct, Paranoid schizophrenia, chronic condition F20.0 ; Mild intellectual disabilities F70 and High risk medication use Z79.899 [facility] [id number] [place] [address] Sep, [facility] [id number] [place] [address] July, [facility] [id number] [place] [address] Jun, High risk medication use Z79.899 [facility] [id number] [place] [address] Apr, [facility] [id number] [place] [address] Apr, Paranoid schizophrenia, chronic condition F20.0 ; Mild intellectual disabilities F70 and High risk medication use Z79.899 [facility] [address] [address] Apr, [facility] [id number] [address] Feb, [facility] [id number] [address] Jan, [facility] [address] [address] Jan, [facility] [id number] [address] Jan, Paranoid schizophrenia, chronic condition F20.0 [facility] [address] [address] Dec, Paranoid schizophrenia, chronic condition F20.0 ; Mild intellectual disabilities F70 and High risk medication use Z79.899 [facility] [id number] [place] [address] Dec, [facility] [id number] [place] [address] Nov, Paranoid schizophrenia, chronic condition F20.0 ; Mild intellectual disabilities F70 and High risk medication use Z79.899 [facility] [address] [address] Oct, [facility] [id number] [place] [address] Oct, [facility] [id number] [address] Oct, [facility] [address] [address] Oct, [facility] [address] [address] Aug, [facility] [address] [address] Jun, Paranoid schizophrenia, chronic condition F20.0 ; High risk medication use Z79.899 and Mild intellectual disabilities F70 [facility] [address] [address] Apr, High risk medication use Z79.899 ; Paranoid schizophrenia, chronic condition F20.0 and Mild intellectual disabilities F70 [facility] [address] [id number] [id number] 17 Apr, 2015 Encounter for dental examination Z01.20 [facility] [address] [address] Apr, [facility] [id number] [address] Mar, Paranoid schizophrenia, chronic condition F20.0 ; Mildly mentally retarded F70 and High risk medication use Z79.899 [facility] [id number] [place] [address] Feb, Paranoid schizophrenia F20.0 [facility] [id number] [place] [address] Dec, [facility] [id number] [place] [address] Dec, Paranoid schizophrenia, chronic condition F20.0 and Mild mental retardation F70 [facility] [id number] [place] [address] Dec, [facility] [address] [address] Dec, [facility] [id number] [place] [address] Dec, [facility] [address] [address] Dec, High risk medication use Z79.899 and Hyperlipemia E78.5 [facility] [address] [address] Nov, [facility] [address], [place] [address] Sep, [facility] [id number] [place] [address] Sep, Paranoid schizophrenia, chronic condition 295.32 and Mild mental retardation 317 [facility] [id number] [place] [address] Jun, [facility] [place] [facility] [address] [id number] [place] [address] 13 Jun, 2014 [facility] [place] [facility] [address] [id number] [place] [address] Apr, [facility] [place] [facility] [address] [id number] [place] [address] Apr, 2014 [facility] [place] [facility] [address] [id number] [place] [address] Apr, [facility] [place] [facility] [address] [id number] [place] [address] Apr, [facility] [place] [facility] [address] [id number] [place] [address] Apr, [facility] [place] [facility] [address] [id number] [place] [address] Apr, [facility] [place] [facility] [address] [id number] [place] [address] Mar, [facility] [place] [facility] [address] [id number] [place] [address] Mar, [facility] [place] [facility] [address] [id number] [place] [address] Mar, [facility] [place] [facility] [address] [id number] [place] [address] Mar, [facility] [place] [facility] [address] [id number] [address] Mar, [facility] [place] [facility] [address] [id number] [place] [address] Mar, [facility] [place] [facility] [address] [id number] [place] [address] Feb, [facility] [place] [facility] [address] [id number] [place] [address] Feb, [facility] [place] [facility] [address] [id number] [place] [address] Jan, [facility] [place] [facility] [address] [id number] [place] [address] Jan, [facility] [place] [facility] [address] [id number] [place] [address] Jan, [facility] [place] [facility] [address] [id number] [place] [address] Jan, [facility] [place] [facility] [address] [id number] [place] [address] Jan, [facility] [place] [facility] [address] [id number] [place] [address] Jan, [facility] [place] [facility] [address] [id number] [place] [address] Jan, [facility] [place] [facility] [address] [id number] [place] [address] Dec, [facility] [place] [facility] [address] [id number] [place] [address] Dec, [facility] [place] [facility] [address] [id number] [place] [address] Dec, [facility] [place] [facility] [address] [facility] [id number] [place] [address] Dec, [facility] [place] [facility] [address] [id number] [place] [address] Dec, [facility] [place] [facility] [address] [id number] [address] Dec, [facility] [place] [facility] [address] [id number] [place] [address] Dec, [facility] [place] [facility] [address] [id number] [place] [address] Dec, [facility] [place] [facility] [address] [facility] [id number] [address] Nov, [facility] [place] [facility] [address] [id number] [place] [address] Nov, [facility] [place] [facility] [address] [id number] [place] [address] Nov, [facility] [place] [facility] [address] [id number] [place] [address] Nov, [facility] [place] [facility] [address] [id number] [place] [address] Oct, [facility] [place] [facility] [address] [id number] [place] [address] Oct, [facility] [place] [facility] [address] [id number] [place] [address] Oct, [facility] [place] [facility] [address] [id number] [place] [address] Oct, [facility] [place] [facility] [address] [id number] [place] [address] Oct, [facility] [place] [facility] [address] [id number] [place] [address] Oct, [facility] [place] [facility] [address] [id number] [place] [address] Sep, [facility] [place] [facility] [address] [id number] [place] [address] Sep, [facility] [place] [facility] [address] [id number] [place] [address] Sep, [facility] [place] [facility] [address] [id number] [place] [address] Sep, [facility] [place] [facility] [address] [id number] [place] [address] Sep, [facility] [place] [facility] [address] [id number] [place] [address] Sep, [facility] [place] [facility] [address] [id number] [place] [address] Sep, [facility] [place] [facility] [address] [id number] [place] [address] Sep, [facility] [place] [facility] [address] [id number] [place] [address] Sep, [facility] [place] [facility] [address] [id number] [place] [address] Sep, [facility] [place] [facility] [address] [id number] [place] [address] Aug, [facility] [place] [facility] [address] [id number] [place] [address] Aug, [facility] [place] [facility] [address] [id number] [place] [address] Aug, [facility] [place] [facility] [address] [id number] [place] [address] Aug, [facility] [place] [facility] [address] [id number] [place] [address] Aug, [facility] [place] [facility] [address] [id number] [place] [address] Aug, [facility] [place] [facility] [address] [id number] [place] [address] Aug, [facility] [place] [facility] [address] [id number] [place] [address] Aug, [facility] [place] [facility] [address] [id number] [place] [address] Aug, [facility] [place] [facility] [address] [id number] [place] [address] Aug, [facility] [place] [facility] [address] [id number] [place] [address] July, [facility] [place] [facility] [address] [id number] [place] [address] July, [facility] [place] [facility] [address] [id number] [place] [address] July, [facility] [address] [id number] [place] [address] July, [facility] [address] [id number] [place] [address] July, [facility] [address] [id number] [place] [address] July, [facility] [address] [id number] [place] [address] July, [facility] [address] [id number] [place] [address] July, [facility] [address] [id number] [place] [address] Jun, [facility] [address] [id number] [place] [address] Jun, [facility] [address] [id number] [place] [address] Jun, [facility] [address] [id number] [place] [address] Jun, [facility] [address] [id number] [place] [address] May, [facility] [address] [id number] [place] [address] May, [facility] [place] [facility] [address] [id number] [place] [address] May, [facility] [place] [facility] [address] [id number] [place] [address] May, [facility] [place] [facility] [address] [id number] [place] [address] May, [facility] [place] [facility] [address] [id number] [place] [address] May, [facility] [place] [facility] [address] [id number] [place] [address] Apr, [facility] [place] [facility] [address] [id number] [place] [address] Apr, [facility] [place] [facility] [address] [id number] [place] [address] Apr, [facility] [place] [facility] [address] [id number] [place] [address] Apr, [facility] [place] [facility] [address] [id number] [place] [address] Apr, [facility] [place] [facility] [address] [id number] [place] [address] Apr, [facility] [place] [facility] [address] [id number] [place] [address] Apr, [facility] [place] [facility] [address] [id number] [place] [address] Apr, [facility] [place] [facility] [address] [id number] [place] [address] Apr, [facility] [place] [facility] [address] [id number] [place] [address] Apr, [facility] [place] [facility] [address] [id number] [place] [address] Mar, [facility] [place] [facility] [address] [id number] [place] [address] Mar, [facility] [place] [facility] [address] [id number] [place] [address] Mar, [facility] [place] [facility] [address] [id number] [place] [address] Mar, [facility] [place] [facility] [address] [id number] [place] [address] Mar, [facility] [place] [facility] [address] [id number] [place] [address] Mar, [facility] [address] [id number] [place] [address] Mar, [facility] [address] [id number] [place] [address] Mar, [facility] [address] [id number] [place] [address] Feb, [facility] [address] [id number] [place] [address] Feb, [facility] [address] [id number] [place] [address] Feb, [facility] [address] [id number] [place] [address] Feb, [facility] [address] [id number] [place] [address] Feb, [facility] [address] [id number] [place] [address] Feb, [facility] [address] [id number] [place] [address] Feb, [facility] [address] [id number] [place] [address] Feb, [facility] [address] [id number] [place] [address] Feb, [facility] [address] [id number] [place] [address] Feb, [facility] [address] [id number] [place] [address] Jan, [facility] [address] [id number] [place] [address] Jan, [facility] [address] [id number] [place] [address] Jan, [facility] [place] [facility] [address] [id number] [place] [address] Jan, [facility] [place] [facility] [address] [id number] [place] [address] 18 Jan, 2013 [facility] [place] [facility] [address] [id number] [place] [address] 15 Jan, 2013 [facility] [place] [facility] [address] [id number] [place] [address] 15 Jan, 2013 [facility] [place] [facility] [address] [id number] [place] [address] Jan, [facility] [place] [facility] [address] [id number] [place] [address] 14 Jan, 2013 [facility] [place] [facility] [address] [id number] [place] [address] Jan, [facility] [place] [facility] [address] [id number], [place] [address] Jan, [facility] [place] [facility] [address] [id number] [place] [address] Jan, [facility] [place] [facility] [address] [id number], [place] [address] Jan, [facility] [place] [facility] [address] [id number], [place] [address] Dec, [facility] [place] [facility] [address] [id number], [place] [address] Dec, [facility] [place] [facility] [address] [id number], [place] [address] Dec, [facility] [place] [facility] [address] [id number], [place] [address] Dec, [facility] [place] [facility] [address] [id number], [place] [address] 27 Nov, 2012 [facility] [place] [facility] [address] [id number], [place] [address] Nov, [facility] [place] [facility] [address] [id number] [place] [address] Nov, [facility] [place] [facility] [address] [id number] [place] [address] Oct, [facility] [place] [facility] [address] [id number] [place] [address] Oct, [facility] [place] [facility] [address] [id number] [place] [address] Oct, [facility] [place] [facility] [address] [id number] [place] [address] Oct, [facility] [place] [facility] [address] [id number] [place] [address] Oct, [facility] [place] [facility] [address] [id number] [place] [address] Oct, [facility] [place] [facility] [address] [id number] [place] [address] Sep, [facility] [place] [facility] [address] [id number] [place] [address] Sep, [facility] [place] [facility] [address] [id number] [place] [address] Sep, [facility] [place] [facility] [address] [id number] [place] [address] Sep, [facility] [place] [facility] [address] [id number] [place] [address] Sep, [facility] [place] [facility] [address] [id number] [place] [address] Sep, [facility] [place] [facility] [address] [id number] [place] [address] Sep, [facility] [place] [facility] [address] [id number] [place] [address] Sep, [facility] [place] [facility] [address] [id number] [place] [address] Sep, [facility] [place] [facility] [address] [id number] [place] [address] Aug, [facility] [place] [facility] [address] [id number] [place] [address] Aug, [facility] [place] [facility] [address] [id number] [place] [address] Aug, [facility] [place] [facility] [address] [id number] [place] [address] Aug, [facility] [place] [facility] [address] [id number] [place] [address] Aug, [facility] [place] [facility] [address] [id number] [place] [address] Aug, [facility] [place] [facility] [address] [id number] [place] [address] Aug, [facility] [place] [facility] [address] [id number] [place] [address] July, [facility] [place] [facility] [address] [id number] [place] [address] July, [facility] [place] [facility] [address] [id number] [place] [address] July, [facility] [place] [facility] [address] [id number] [place] [address] Jun, [facility] [place] [facility] [address] [id number] [place] [address] Jun, [facility] [place] [facility] [address] [id number] [place] [address] Jun, [facility] [place] [facility] [address] [id number] [place] [address] Jun, [facility] [place] [facility] [address] [id number] [place] [address] 29 May, 2012 [facility] [address] [id number] [place] [address] 18 May, 2012 [facility] [place] [facility] [address] [id number] [place] [address] 18 May, 2012 [facility] [address] [id number] [place] [address] 15 May, 2012 [facility] [place] [facility] [address] [id number] [place] [address] 14 May, 2012 [facility] [address] [id number] [place] [address] 07 May, 2012 [facility] [address] [id number] [place] [address] 06 May, 2012 [facility] [address] [id number] [place] [address] 04 May, 2012 [facility] [place] [facility] [address] [id number] [place] [address] 18 Apr, 2012 [facility] [address] [id number] [place] [address] 17 Feb, 2012 [facility] [place] [facility] [address] [id number] [place] [id number] 17 Feb, 2012 [facility] [place] [facility] [address] [id number] [place] [address] 17 Feb, 2012 [facility] [place] [facility] [address] [id number] [address] 17 Feb, 2012 [facility] [place] [facility] [address] [id number] [place] [address] 13 Feb, 2012 [facility] [place] [facility] [address] [id number] [place] [address] 13 Feb, 2012 [facility] [place] [facility] [address] [facility] [id number] [place] [address] 12 Feb, 2012 [facility] [place] [facility] [address] [id number] [place] [address] Feb, [facility] [place] [facility] [address] [id number] [place] [address] Feb, [facility] [place] [facility] [address] [id number] [place] [address] Feb, [facility] [place] [facility] [address] [id number] [place] [address] Jan, [facility] [place] [facility] [address] [id number] [place] [address] Jan, [facility] [place] [facility] [address] [id number] [place] [address] Jan, [facility] [place] [facility] [address] [id number] [place] [address] Jan, [facility] [place] [facility] [address] [id number] [place] [address] Jan, [facility] [place] [facility] [address] [id number] [place] [address] Jan, [facility] [place] [facility] [address] [id number] [place] [address] Jan, [facility] [place] [facility] [address] [facility] [id number] [place] [address] Jan, [facility] [place] [facility] [address] [id number] [place] [address] Dec, [facility] [place] [facility] [address] [id number] [place] [address] Dec, [facility] [place] [facility] [address] [id number] [place] [address] Dec, [facility] [place] [facility] [address] [facility] [id number] [place] [address] Dec, [facility] [place] [facility] [address] [id number] [place] [address] Dec, [facility] [place] [facility] [address] [id number] [place] [address] Dec, [facility] [place] [facility] [address] [id number] [place] [address] Dec, [facility] [place] [facility] [address] [id number] [place] [address] Nov, [facility] [place] [facility] [address] [id number] [place] [address] Nov, [facility] [place] [facility] [address] [id number] [place] [address] Nov, [facility] [place] [facility] [address] [id number] [place] [address] Oct, [facility] [place] [facility] [address] [id number] [place] [address] Oct, [facility] [place] [facility] [address] [id number] [place] [address] Oct, [facility] [place] [facility] [address] [id number] [place] [address] Oct, [facility] [place] [facility] [address] [id number] [place] [address] Sep, [facility] [place] [facility] [address] [id number] [place] [address] Sep, [facility] [place] [facility] [address] [id number] [place] [address] Sep, [facility] [place] [facility] [address] [id number] [place] [address] Aug, [facility] [place] [facility] [address] [id number] [place] [address] Aug, [facility] [place] [facility] [address] [id number] [place] [address] July, [facility] [place] [facility] [address] [id number] [place] [address] July, [facility] [address] [id number] [place] [address] July, [facility] [address] [id number] [place] [address] Jun, [facility] [address] [id number] [place] [address] Jun, [facility] [address] [id number] [place] [address] May, [facility] [address] [id number] [place] [address] Apr, [facility] [place] [facility] [address] [id number] [place] [address] Apr, [facility] [address] [id number] [place] [address] Apr, [facility] [address] [id number] [place] [address] Mar, [facility] [address] [id number] [place] [address] Mar, [facility] [address] [facility] [id number] [place] [address] Mar, [facility] [address] [facility] [id number] [place] [address] Mar, [facility] [place] [facility] [address] [id number] [place] [address] Feb, [facility] [place] [facility] [address] [id number] [place] [address] Feb, [facility] [place] [facility] [address] [id number] [place] [address] Feb, [facility] [place] [facility] [address] [facility] [id number] [place] [address] Feb, [facility] [place] [facility] [address] [id number] [place] [address] 30 Jan, 2011 [facility] [place] [facility] [address] [id number] [place] [address] 17 Jan, 2011 [facility] [place] [facility] [address] [id number] [place] [address] 16 Jan, 2011 [facility] [place] [facility] [address] [id number] [place] [address] 16 Jan, 2011 [facility] [place] [facility] [address] [id number] [place] [address] Jan, [facility] [place] [facility] [address] [id number] [place] [address] 20 Dec, 2010 [facility] [place] [facility] [address] [id number] [place] [address] 18 Sep, 2010 [facility] [place] [facility] [address] [id number] [place] [address] 31 Feb, 2010 [facility] [place] [facility] [address] [id number] [place] [address] 30 Feb, 2010 [facility] [place] [facility] [address] [id number] [place] [address] 21 Feb, 2010 [facility] [place] [facility] [address] [id number] [place] [address] 29 Dec, 2009 [facility] [place] [facility] [address] [id number] [place] [address] 19 Dec, 2009 [facility] [place] [facility] [address] [id number] [place] [address] Oct, [facility] [place] [facility] [address] [id number] [place] [address] 15 Aug, 2009 [facility] [place] [facility] [address] [id number] [place] [address] 15 Feb, 2009 [facility] [place] [facility] [address] [id number] [place] [address] Feb, [facility] [address] [facility] [id number], [place] [address] Jan, [facility] [address] [facility] [id number], [place] [address] Jan, [facility] [address] [facility] [id number], [place] [address] Dec, [facility] [id number] [address] Dec, [facility] [address] [facility] [id number], [place] [address] Nov, IMMUNIZATIONS No Known Immunizations SOCIAL HISTORY Never Assessed REASON FOR VISIT dizziness, unsteady gait JStrasserRN PLAN OF CARE Activity Details Follow Up prn Reason: VITAL SIGNS Height 68 in 2017-01-11 Weight 199 lbs 2017-01-11 Temperature 97.2 degrees Fahrenheit 2017-01-11 Heart Rate 92 bpm 2017-01-11 Respiratory Rate 20 2017-01-11 BMI 30.25 kg/m2 2017-01-11 Blood pressure systolic 124 mmHg 2017-01-11 Blood pressure diastolic 86 mmHg 2017-01-11 MEDICATIONS Medication Instructions Dosage Frequency Start Date End Date Duration Status Clozapine 100 MG 1 tablet 3 tabs in the AM and HS; Take 2 tabs at 3PM 30 Active Seroquel 100 MG Orally Once a day at bedtime 1 tablet 30 Active EPA 1000 MG Orally twice a day 1 capsule 12h Active Clonazepam 2 MG Orally for anxiety 1/2 tablet at 3pm and 1.5 tablets at HS Oct, 31 days Active Benztropine Mesylate 1 MG Orally 3 times a day; AM, 3PM and HS 1 Tablet 30 Active Lipitor 20 mg 1 tablet by Oral route 1 time per day Sep, Active MiraLax 17 gram/dose 17 g by Oral route 1 time per day take daily Feb, Active Trazodone HCl 150 MG take 1 Tablet by Oral route 1 time per day qHS 30 Active Oxybutynin Chloride 5 MG Orally Twice a day 1 tablet by Oral route 2 times per day 12h Sep, Active Keppra 500 mg take 1 tablet (500 mg) by oral route 2 times per day July, Active Folic Acid 1 mg 0.5 tablet by Oral route 1 time per day 17 Apr, 2014 Active Docusate Sodium 100 mg take 1 capsule (100 mg) by oral route 2 times per day July, Active Depakote ER 500 MG Orally 1 time per day 4 Tablet Active Haloperidol 2 MG 1 Tablet by Oral route 1 time per day 30 Active Protonix 40 mg 1 tablet by Oral route 1 time per day July, Active Metoprolol Succinate 25 mg 1 tablet by Oral route 1 time per day July, Active Loratadine 10 mg 1 tablet by Oral route 1 time per day Apr, Active RESULTS Name Result Date Reference Range UA LONG DIP (IN HOUSE) 2017-01-11 Lot # [id number] Exp date 2018-02-05 Clarity clear Color dark yellow Odor none GLU negative SUKHDEV negative KET negative SG 1.020 BLO negative pH 7.5 Protein negative URO 1.0 NIT negative TIFFANY negative Lot # [id number] Exp date June 2017 PROCEDURES Procedure Date Ordered Result Body Site URINALYSIS, AUTO, W/O SCOPE Jan 11, 2017 [facility] VISIT ESTABLISHED PATIENT Jan 11, 2017 INSTRUCTIONS MEDICATIONS ADMINISTERED No Known Medications MEDICAL (GENERAL) HISTORY Type Description Date Medical History High Blood Pressure Medical History Fainting/Seizures/Epilepsy Medical History Moderate MR Medical History GERD Medical History Hyperlipidemia Medical History Paranoid Schizophrenia Medical History incontenance Medical History 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
--- OUTSIDE RECORDS SUMMARY | 2018-09-29 17:50 | XMS REPORT ---
Author Author CLAUS MCDONALD 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 Role Phone HARRY CLAUS Unavailable PROBLEMS Type Condition ICD9-CM Code PHF57-QL Code Onset Dates Condition Status SNOMED Code Problem Hyperlipemia E78.5 Active 15953435 Problem High risk medication use Z79.899 Active 928811670 Problem Seizures R56.9 Active 50140735 Problem Intermittent explosive disorder 312.34 Active 33405501 Problem Paranoid schizophrenia, chronic condition 295.32 Active 04118170 Problem Mildly mentally retarded F70 Active 96168232 Problem Constipation, unspecified constipation type K59.00 Active 90860756 Problem Severe episode of recurrent major depressive disorder, with psychotic features F33.3 Active 26855444 Problem Paranoid schizophrenia, chronic condition F20.0 Active 28703217 Problem Stress incontinence, male N39.3 Active 972979259 Problem Unsteady gait R26.81 Active 91942639 Problem Mild intellectual disabilities F70 Active [id number] ALLERGIES No Information ENCOUNTERS Encounter Location Date Diagnosis [facility] [id number] [place] [address] July, [facility] [id number] [place] [address] May, [facility] [id number] [place] [address] 13 Apr, 2017 Paranoid schizophrenia, chronic condition F20.0 ; Mild intellectual disabilities F70 and High risk medication use Z79.899 [facility] [id number] [place] [address] 08 Apr, 2017 [facility] [id number] [place] [address] Mar[address] [place] [id number] [place] [address] Mar, [facility] [address] [address] Mar, Contusion of nose, initial encounter S00.33XA [facility] [address] [address] Mar, Paranoid schizophrenia, chronic condition F20.0 ; Severe episode of recurrent major depressive disorder, with psychotic features F33.3 and Mild intellectual disabilities F70 [facility] [address] [address] Mar, Constipation, unspecified constipation type K59.00 and Abrasion of right ear, initial encounter S00.411A [place] [address] [address] Mar, [facility] [address] [id number] Feb, Encounter for dental examination and cleaning without abnormal findings Z01.20 [place] [address] [address] Feb, [place] [address] [address] Feb, Paranoid schizophrenia, chronic condition F20.0 ; Mild intellectual disabilities F70 and High risk medication use Z79.899 [place] [address] [address] 08 Jan, 2017 [facility] [address] [address] Jan, Unsteady gait R26.81 [place] [address] [address] Dec, Encounter for immunization Z23 [place] [address] [address] Nov, [facility] [address] [address] Oct, Paranoid schizophrenia, chronic condition F20.0 ; Mild intellectual disabilities F70 and High risk medication use Z79.899 [facility] [address] [address] Sep, [facility] [id number] [address] July, [facility] [address] [address] Jun, High risk medication use Z79.899 [facility] [address] [address] Apr, [facility] [address] [address] Apr, Paranoid schizophrenia, chronic condition F20.0 ; Mild intellectual disabilities F70 and High risk medication use Z79.899 [facility] [address] [address] Apr, [facility] [address] [address] Feb, [facility] [address] [address] Jan, [facility] [address] [address] Jan, [facility] [address] [address] Jan, Paranoid schizophrenia, chronic condition F20.0 [facility] [address] [address] Dec, Paranoid schizophrenia, chronic condition F20.0 ; Mild intellectual disabilities F70 and High risk medication use Z79.899 [facility] [id number] [address] Dec, [facility] [address] [address] Nov, Paranoid schizophrenia, chronic condition F20.0 ; Mild intellectual disabilities F70 and High risk medication use Z79.899 [facility] [address] [address] Oct, [facility] [id number] [place] [address] Oct, [facility] [id number] [place] [address] Oct, [facility] [id number] [place] [address] Oct, [facility] [id number] [place] [address] Aug, [facility] [id number] [address] Jun, Paranoid schizophrenia, chronic condition F20.0 ; High risk medication use Z79.899 and Mild intellectual disabilities F70 [facility] [address] [address] Apr, High risk medication use Z79.899 ; Paranoid schizophrenia, chronic condition F20.0 and Mild intellectual disabilities F70 [facility] [address] [id number] Apr, Encounter for dental examination Z01.20 [facility] [id number] [place] [address] Apr, [facility] [id number] [place] [address] Mar, Paranoid schizophrenia, chronic condition F20.0 ; Mildly mentally retarded F70 and High risk medication use Z79.899 [facility] [id number] [address] Feb, Paranoid schizophrenia F20.0 [facility] [address] [address] Dec, [facility] [address], [place] [address] Dec, Paranoid schizophrenia, chronic condition F20.0 and Mild mental retardation F70 [facility] [address] [address] Dec, [facility] [address] [address] Dec, [facility] [id number] [place] [address] Dec, [facility] [id number] [place] [address] Dec, High risk medication use Z79.899 and Hyperlipemia E78.5 [facility] [address] [address] Nov, [facility] [address], [place] [address] Sep, [facility] [address] [address] Sep, Paranoid schizophrenia, chronic condition 295.32 and Mild mental retardation 317 [facility] [address], [place] [address] Jun, [facility] [address], [place] [address] Jun, [facility] [address], [place] [address] Apr, [facility] [address], [place] [address] Apr, [facility] [address] [place] [address] Apr, 2014 [facility] [place] [facility] [address] [id number] [place] [address] Apr, 2014 [facility] [place] [facility] [address] [id number] [place] [address] Apr, [facility] [place] [facility] [address] [id number] [place] [address] Apr, [facility] [place] [facility] [address] [id number] [place] [address] Mar, [facility] [place] [facility] [address] [id number] [place] [address] Mar, [facility] [place] [facility] [address] [id number] [place] [address] Mar, [facility] [place] [facility] [address] [id number] [place] [address] Mar, [facility] [place] [facility] [address] [id number] [place] [address] Mar, [facility] [place] [facility] [address] [id number] [place] [address] Mar, [facility] [place] [facility] [address] [facility] [id number] [place] [address] Feb, [facility] [place] [facility] [address] [id number] [place] [address] Feb, [facility] [place] [facility] [address] [id number] [place] [address] Jan, [facility] [place] [facility] [address] [id number] [place] [address] Jan, [facility] [place] [facility] [address] [id number] [place] [address] Jan, [facility] [place] [facility] [address] [id number] [place] [address] Jan, [facility] [place] [facility] [address] [id number] [place] [address] Jan, [facility] [place] [facility] [address] [id number] [place] [address] Jan, [facility] [place] [facility] [address] [id number] [place] [address] Jan, [facility] [place] [facility] [address] [id number] [place] [address] Dec, [facility] [place] [facility] [address] [id number] [place] [address] Dec, [facility] [place] [facility] [address] [id number] [place] [address] Dec, [facility] [place] [facility] [address] [id number] [place] [address] Dec, [facility] [place] [facility] [address] [id number] [address] Dec, [facility] [place] [facility] [address] [id number] [place] [address] Dec, [facility] [place] [facility] [address] [id number] [address] Dec, [facility] [place] [facility] [address] [id number], [place] [address] Dec, [facility] [place] [facility] [address] [id number], [place] [address] Nov, [facility] [place] [facility] [address] [id number] [place] [address] 17 Nov, 2013 [facility] [place] [facility] [address] [id number], [place] [address] 15 Nov, 2013 [facility] [place] [facility] [address] [id number], [place] [address] 15 Nov, 2013 [facility] [place] [facility] [address] [id number] [place] [address] Oct, [facility] [place] [facility] [address] [id number] [place] [address] Oct, [facility] [place] [facility] [address] [id number] [place] [address] Oct, [facility] [place] [facility] [address] [id number] [place] [address] Oct, [facility] [place] [facility] [address] [id number] [place] [address] Oct, [facility] [place] [facility] [address] [id number] [place] [address] Oct, [facility] [place] [facility] [address] [id number] [place] [address] Sep, [facility] [place] [facility] [address] [id number] [place] [address] Sep, [facility] [place] [facility] [address] [id number] [place] [address] Sep, [facility] [place] [facility] [address] [id number] [place] [address] Sep, [facility] [place] [facility] [address] [id number] [place] [address] Sep, [facility] [place] [facility] [address] [id number] [place] [address] Sep, [facility] [place] [facility] [address] [id number] [place] [address] Sep, [facility] [place] [facility] [address] [id number] [place] [address] Sep, [facility] [place] [facility] [address] [id number] [place] [address] Sep, [facility] [place] [facility] [address] [id number] [place] [address] Sep, [facility] [place] [facility] [address] [id number] [place] [address] Aug, [facility] [place] [facility] [address] [id number] [place] [address] Aug, [facility] [place] [facility] [address] [id number] [place] [address] Aug, [facility] [place] [facility] [address] [id number] [place] [address] Aug, [facility] [place] [facility] [address] [id number] [place] [address] Aug, [facility] [place] [facility] [address] [id number] [place] [address] Aug, [facility] [place] [facility] [address] [id number] [place] [address] Aug, [facility] [place] [facility] [address] [id number] [place] [address] Aug, [facility] [place] [facility] [address] [id number] [place] [address] Aug, [facility] [place] [facility] [address] [id number] [place] [address] Aug, [facility] [place] [facility] [address] [id number] [place] [address] July, [facility] [place] [facility] [address] [id number] [place] [address] July, [facility] [place] [facility] [address] [id number] [place] [address] July, [facility] [place] [facility] [address] [id number] [place] [address] July, [facility] [place] [facility] [address] [id number] [place] [address] July, [facility] [place] [facility] [address] [id number] [place] [address] July, [facility] [place] [facility] [address] [id number] [place] [address] July, [facility] [place] [facility] [address] [id number] [place] [address] July, [facility] [place] [facility] [address] [id number] [place] [address] Jun, [facility] [place] [facility] [address] [id number] [place] [address] Jun, [facility] [place] [facility] [address] [id number] [place] [address] Jun, [facility] [place] [facility] [address] [id number] [place] [address] Jun, [facility] [place] [facility] [address] [id number] [place] [address] May, [facility] [place] [facility] [address] [id number] [place] [address] May, [facility] [place] [facility] [address] [id number] [place] [address] May, [facility] [place] [facility] [address] [id number] [place] [address] May, [facility] [place] [facility] [address] [id number] [place] [address] May, [facility] [place] [facility] [address] [id number] [place] [address] May, [facility] [place] [facility] [address] [id number] [place] [address] Apr, [facility] [place] [facility] [address] [id number] [place] [address] Apr, [facility] [place] [facility] [address] [id number] [place] [address] Apr, [facility] [place] [facility] [address] [id number] [place] [address] Apr, [facility] [place] [facility] [address] [id number] [place] [address] Apr, [facility] [place] [facility] [address] [id number] [place] [address] Apr, [facility] [place] [facility] [address] [id number] [place] [address] Apr, [facility] [place] [facility] [address] [id number] [place] [address] Apr, [facility] [place] [facility] [address] [id number] [place] [address] Apr, [facility] [place] [facility] [address] [id number] [place] [address] Apr, [facility] [place] [facility] [address] [id number] [place] [address] Mar, [facility] [place] [facility] [address] [id number] [place] [address] Mar, [facility] [place] [facility] [address] [id number] [place] [address] Mar, [facility] [place] [facility] [address] [id number] [place] [address] Mar, [facility] [place] [facility] [address] [id number] [place] [address] Mar, [facility] [place] [facility] [address] [id number] [place] [address] Mar, [facility] [place] [facility] [address] [id number] [place] [address] Mar, [facility] [place] [facility] [address] [id number] [place] [address] Mar, [facility] [place] [facility] [address] [id number], [place] [address] Feb, [facility] [address] [id number] [place] [address] Feb, [facility] [place] [facility] [address] [id number] [place] [address] Feb, [facility] [place] [facility] [address] [id number] [place] [address] Feb, [facility] [place] [facility] [address] [id number] [place] [address] Feb, [facility] [place] [facility] [address] [id number] [place] [address] Feb, [facility] [place] [facility] [address] [id number] [place] [address] Feb, [facility] [address] [id number] [place] [address] Feb, [facility] [place] [facility] [address] [id number] [place] [address] Feb, [facility] [place] [facility] [address] [id number] [place] [address] Feb, [facility] [place] [facility] [address] [id number] [place] [address] Jan, [facility] [place] [facility] [address] [id number], [place] [address] Jan, [facility] [place] [facility] [address] [id number], [place] [address] Jan, [facility] [place] [facility] [address] [id number], [place] [address] Jan, [facility] [place] [facility] [address] [id number], [place] [address] Jan, [facility] [place] [facility] [address] [id number] [place] [address] 15 Jan, 2013 [facility] [place] [facility] [address] [id number] [place] [address] 15 Jan, 2013 [facility] [place] [facility] [address] [id number] [place] [address] 14 Jan, 2013 [facility] [place] [facility] [address] [id number] [place] [address] 14 Jan, 2013 [facility] [place] [facility] [address] [id number] [place] [address] 06 Jan, 2013 [facility] [place] [facility] [address] [id number] [place] [address] Jan, [facility] [place] [facility] [address] [id number] [place] [address] Jan, [facility] [place] [facility] [address] [id number] [place] [address] Jan, [facility] [place] [facility] [address] [id number] [place] [address] Dec, [facility] [place] [facility] [address] [id number] [place] [address] Dec, [facility] [place] [facility] [address] [id number] [place] [address] Dec, [facility] [place] [facility] [address] [id number] [place] [address] Dec, [facility] [place] [facility] [address] [id number] [place] [address] 27 Nov, 2012 [facility] [place] [facility] [address] [id number] [place] [address] 24 Nov, 2012 [facility] [place] [facility] [address] [id number] [place] [address] 13 Nov, 2012 [facility] [place] [facility] [address] [id number] [place] [address] Oct, [facility] [place] [facility] [address] [id number] [place] [address] Oct, [facility] [place] [facility] [address] [id number] [place] [address] Oct, [facility] [place] [facility] [address] [id number] [place] [address] Oct, [facility] [place] [facility] [address] [id number] [place] [address] Oct, [facility] [place] [facility] [address] [id number] [place] [address] Oct, [facility] [place] [facility] [address] [id number] [place] [address] Sep, [facility] [place] [facility] [address] [id number] [place] [address] Sep, [facility] [place] [facility] [address] [id number] [place] [address] Sep, [facility] [place] [facility] [address] [id number] [place] [address] Sep, [facility] [place] [facility] [address] [id number] [place] [address] Sep, [facility] [place] [facility] [address] [id number] [place] [address] Sep, [facility] [place] [facility] [address] [id number] [place] [address] Sep, [facility] [place] [facility] [address] [id number] [place] [address] Sep, [facility] [place] [facility] [address] [id number] [place] [address] Sep, [facility] [place] [facility] [address] [id number] [place] [address] Aug, [facility] [place] [facility] [address] [id number] [place] [address] Aug, [facility] [place] [facility] [address] [id number] [place] [address] 07 Aug, 2012 [facility] [address] [id number] [place] [address] 06 Aug, 2012 [facility] [address] [id number] [place] [address] 04 Aug, 2012 [facility] [address] [id number] [place] [address] 04 Aug, 2012 [facility] [address] [id number] [place] [address] Aug, [facility] [address] [id number] [place] [address] July, [facility] [address] [id number] [place] [address] July, [facility] [address] [id number] [place] [address] July, [facility] [address] [id number] [place] [address] Jun, [facility] [address] [id number] [place] [address] Jun, [facility] [address] [id number] [place] [address] Jun, [facility] [address] [id number] [place] [address] Jun, [facility] [address] [id number] [place] [address] 29 May, 2012 [facility] [address] [id number] [place] [address] 18 May, 2012 [facility] [place] [facility] [address] [id number] [place] [address] 18 May, 2012 [facility] [address] [id number] [place] [address] 15 May, 2012 [facility] [address] [id number] [place] [address] 14 May, 2012 [facility] [place] [facility] [address] [id number] [place] [address] 07 May, 2012 [facility] [place] [facility] [address] [id number] [place] [address] 06 May, 2012 [facility] [place] [facility] [address] [id number] [place] [address] 04 May, 2012 [facility] [place] [facility] [address] [id number] [place] [address] 18 Apr, 2012 [facility] [place] [facility] [address] [id number] [place] [address] 17 Feb, 2012 [facility] [address] [id number] [place] [address] 17 Feb, 2012 [facility] [address] [id number] [place] [address] 17 Feb, 2012 [facility] [address] [id number] [place] [address] 17 Feb, 2012 [facility] [address] [id number] [place] [address] 13 Feb, 2012 [facility] [place] [facility] [address] [id number] [place] [address] 13 Feb, 2012 [facility] [place] [facility] [address] [id number] [place] [address] 12 Feb, 2012 [facility] [place] [facility] [address] [id number] [place] [address] 12 Feb, 2012 [facility] [place] [facility] [address] [id number] [place] [address] 03 Feb, 2012 [facility] [place] [facility] [address] [id number] [place] [address] 03 Feb, 2012 [facility] [place] [facility] [address] [id number] [place] [address] Jan, [facility] [place] [facility] [address] [id number] [place] [address] Jan, [facility] [place] [facility] [address] [id number] [place] [address] Jan, [facility] [place] [facility] [address] [facility] [id number] [place] [address] Jan, [facility] [place] [facility] [address] [id number] [place] [address] Jan, [facility] [place] [facility] [address] [id number] [place] [address] Jan, [facility] [place] [facility] [address] [id number] [place] [address] Jan, [facility] [place] [facility] [address] [id number] [place] [address] Jan, [facility] [place] [facility] [address] [id number], [place] [address] Dec, [facility] [place] [facility] [address] [id number] [place] [address] Dec, [facility] [place] [facility] [address] [facility] [id number], [place] [address] Dec, [facility] [place] [facility] [address] [id number], [place] [address] Dec, [facility] [place] [facility] [address] [id number], [place] [address] Dec, [facility] [place] [facility] [address] [id number], [place] [address] Dec, [facility] [place] [facility] [address] [facility] [id number] [address] Dec, [facility] [place] [facility] [address] [id number], [place] [address] Nov, [facility] [place] [facility] [address] [id number] [place] [address] Nov, [facility] [address] [id number] [place] [address] Nov, [facility] [address] [id number] [place] [address] Oct, [facility] [address] [id number] [place] [address] Oct, [facility] [address] [id number] [place] [address] Oct, [facility] [address] [id number] [place] [address] Oct, [facility] [address] [id number] [place] [address] Sep, [facility] [address] [id number] [place] [address] Sep, [facility] [address] [id number] [place] [address] Sep, [facility] [address] [id number] [place] [address] Aug, [facility] [address] [id number] [place] [address] Aug, [facility] [address] [id number] [place] [address] July, [facility] [address] [id number] [place] [address] July, [facility] [place] [facility] [address] [id number] [place] [address] July, [facility] [place] [facility] [address] [id number] [place] [address] Jun, [facility] [address] [id number] [place] [address] Jun, [facility] [place] [facility] [address] [id number] [place] [address] May, [facility] [place] [facility] [address] [id number] [place] [address] Apr, [facility] [place] [facility] [address] [id number] [place] [address] Apr, [facility] [place] [facility] [address] [id number] [place] [address] Apr, [facility] [place] [facility] [address] [id number] [place] [address] Mar, [facility] [place] [facility] [address] [id number] [place] [address] Mar, [facility] [place] [facility] [address] [id number] [place] [address] Mar, [facility] [place] [facility] [address] [id number] [place] [address] Mar, [facility] [place] [facility] [address] [id number] [place] [address] Feb, [facility] [place] [facility] [address] [id number] [place] [address] Feb, [facility] [place] [facility] [address] [id number] [place] [address] Feb, [facility] [place] [facility] [address] [id number] [place] [address] Feb, [facility] [place] [facility] [address] [id number] [place] [address] 30 Jan, 2011 [facility] [place] [facility] [address] [id number] [place] [address] Jan, [facility] [place] [facility] [address] [id number] [place] [address] 16 Jan, 2011 [facility] [place] [facility] [address] [id number] [place] [address] 16 Jan, 2011 [facility] [place] [facility] [address] [id number] [place] [address] Jan, [facility] [place] [facility] [address] [id number] [place] [address] Dec, [facility] [place] [facility] [address] [id number] [place] [address] Sep, [facility] [place] [facility] [address] [id number] [place] [address] 31 Feb, 2010 [facility] [place] [facility] [id number] [place] [address], [place] [address] 30 Feb, 2010 [facility] [place] [facility] [address] [id number] [place] [address] Feb, [facility] [place] [facility] [id number] [place] [address], [place] [address] 29 Dec, 2009 [facility] [place] [facility] [address] [id number] [place] [address] Dec, [facility] [place] [facility] [address] [id number] [place] [address] Oct, [facility] [place] [facility] [address] [facility] [id number] [place] [address] 15 Aug, 2009 [facility] [place] [facility] [address] [id number] [place] [address] 15 Feb, 2009 [facility] [place] [facility] [address] [id number], [place] [address] 15 Feb, 2009 [facility] [place] [facility] [address] [id number] [place] [address] 30 Jan, 2009 [facility] [place] [facility] [address] [id number] [place] [address] Jan, [facility] [place] [facility] [address] [facility] [id number], [place] [address] 29 Dec, 2008 [facility] [place] [facility] [address] [facility] [id number] [place] [address] Dec, [facility] [address] [facility] [id number], [place] [address] Nov, IMMUNIZATIONS No Known Immunizations SOCIAL HISTORY Never Assessed REASON FOR VISIT Controlled Refill Request PLAN OF CARE VITAL SIGNS MEDICATIONS Medication [...]
--- OUTSIDE RECORDS SUMMARY | 2018-09-29 17:51 | XMS REPORT ---
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 Name Role Phone HARRY CLAUS Unavailable PROBLEMS Type Condition ICD9-CM Code MFQ65-VS Code Onset Dates Condition Status SNOMED Code Problem Hyperlipemia E78.5 Active 33108646 Problem High risk medication use Z79.899 Active 578484579 Problem Seizures R56.9 Active 08064123 Problem Intermittent explosive disorder 312.34 Active 34241519 Problem Paranoid schizophrenia, chronic condition 295.32 Active 97589341 Problem Mildly mentally retarded F70 Active 71281180 Problem Constipation, unspecified constipation type K59.00 Active 96172640 Problem Severe episode of recurrent major depressive disorder, with psychotic features F33.3 Active 96021218 Problem Paranoid schizophrenia, chronic condition F20.0 Active 69250724 Problem Stress incontinence, male N39.3 Active 306513160 Problem Unsteady gait R26.81 Active 62993103 Problem Mild intellectual disabilities F70 Active [id number] ALLERGIES No Information ENCOUNTERS Encounter Location Date Diagnosis [facility] [id number] [place] [address] Oct, [facility] [id number] [place] [address] Sep, [facility] [id number] [place] [address] July, Paranoid schizophrenia, chronic condition F20.0 and Mild intellectual disabilities F70 [facility] [id number] [place] [address] Jun, Paranoid schizophrenia, chronic condition F20.0 [facility] [id number] [place] [address] May, [facility] [id number] [place] [address] 13 Apr, 2017 Paranoid schizophrenia, chronic condition F20.0 ; Mild intellectual disabilities F70 and High risk medication use Z79.[address] [id number] [place] [address] 08 Apr, 2017 [place] [id number] [place] [address] Mar, [place] [id number] [place] [address] Mar, [facility] [id number] [place] [address] Mar, Contusion of nose, initial encounter S00.33XA [place] [id number] [place] [address] Mar, Paranoid schizophrenia, chronic condition F20.0 ; Severe episode of recurrent major depressive disorder, with psychotic features F33.3 and Mild intellectual disabilities F70 [facility] [id number] [place] [address] Mar, Constipation, unspecified constipation type K59.00 and Abrasion of right ear, initial encounter S00.411A [place] [id number] [place] [address] Mar, [facility] [id number] [place] [id number] Feb, Encounter for dental examination and cleaning without abnormal findings Z01.20 [place] [id number] [place] [address] Feb, [place] [id number] [place] [address] Feb, Paranoid schizophrenia, chronic condition F20.0 ; Mild intellectual disabilities F70 and High risk medication use Z79.899 [place] [address] [place] [address] Jan, [facility] [id number] [place] [address] Jan, Unsteady gait R26.81 [facility] [address] [id number] [address] Dec, Encounter for immunization Z23 [facility] [id number] [place] [address] Nov, [facility] [id number] [place] [address] Oct, Paranoid schizophrenia, chronic condition F20.0 ; Mild intellectual disabilities F70 and High risk medication use Z79.899 [facility] [id number] [place] [address] Sep, [facility] [id number] [place] [address] July, [facility] [id number] [place] [address] Jun, High risk medication use Z79.899 [facility] [id number] [place] [address] Apr, [facility] [address] [address] Apr, Paranoid schizophrenia, chronic condition F20.0 ; Mild intellectual disabilities F70 and High risk medication use Z79.899 [facility] [address] [id number] [address] Apr, [facility] [id number] [place] [address] Feb, [facility] [id number] [place] [address] Jan, [facility] [id number] [place] [address] Jan, [facility] [address] [facility] [id number], [place] [address] Jan, Paranoid schizophrenia, chronic condition F20.0 [facility] [id number] [address] Dec, Paranoid schizophrenia, chronic condition F20.0 ; Mild intellectual disabilities F70 and High risk medication use Z79.899 [facility] [address], [place] [address] Dec, [facility] [id number] [address] Nov, Paranoid schizophrenia, chronic condition F20.0 ; Mild intellectual disabilities F70 and High risk medication use Z79.899 [facility] [address], [place] [address] Oct, [facility] [id number] [address] Oct, [facility] [id number] [address] Oct, [facility] [address], [place] [address] Oct, [facility] [address], [place] [address] Aug, [facility] [id number] [address] Jun, Paranoid schizophrenia, chronic condition F20.0 ; High risk medication use Z79.899 and Mild intellectual disabilities F70 [facility] [id number] [address] Apr, High risk medication use Z79.899 ; Paranoid schizophrenia, chronic condition F20.0 and Mild intellectual disabilities F70 [facility] [address] [id number] Apr, Encounter for dental examination Z01.20 [facility] [address], [place] [address] Apr, [facility] [id number] [place] [address] Mar, Paranoid schizophrenia, chronic condition F20.0 ; Mildly mentally retarded F70 and High risk medication use Z79.899 [facility] [id number] [place] [address] Feb, Paranoid schizophrenia F20.0 [facility] [id number] [place] [address] Dec, [facility] [id number] [place] [address] Dec, Paranoid schizophrenia, chronic condition F20.0 and Mild mental retardation F70 [facility] [id number] [place] [address] Dec, [facility] [id number] [place] [address] Dec, [facility] [id number] [place] [address] Dec, [facility] [address], [place] [address] Dec, High risk medication use Z79.899 and Hyperlipemia E78.5 [facility] [address], [place] [address] Nov, [facility] [id number] [place] [address] Sep, [facility] [id number] [place] [address] Sep, Paranoid schizophrenia, chronic condition 295.32 and Mild mental retardation 317 [facility] [id number] [place] [address] 14 Jun, 2014 [facility] [place] [facility] [address] [id number] [place] [address] 13 Jun, 2014 [facility] [place] [facility] [address] [id number] [place] [address] Apr, 2014 [facility] [place] [facility] [address] [id number] [place] [address] Apr, 2014 [facility] [place] [facility] [address] [id number] [place] [address] Apr, 2014 [facility] [place] [facility] [address] [id number] [place] [address] Apr, 2014 [facility] [place] [facility] [address] [id number] [place] [address] Apr, [facility] [place] [facility] [address] [id number] [place] [address] Apr, [facility] [place] [facility] [address] [id number] [place] [address] Mar, [facility] [place] [facility] [address] [id number] [place] [address] Mar, [facility] [place] [facility] [address] [facility] [id number] [place] [address] Mar, [facility] [place] [facility] [address] [id number] [place] [address] Mar, [facility] [place] [facility] [address] [id number] [place] [address] Mar, [facility] [place] [facility] [address] [id number] [place] [address] Mar, [facility] [place] [facility] [address] [facility] [id number] [place] [address] Feb, [facility] [place] [facility] [address] [id number] [place] [address] Feb, [facility] [place] [facility] [address] [id number] [place] [address] Jan, [facility] [place] [facility] [address] [id number] [place] [address] Jan, [facility] [place] [facility] [address] [id number] [place] [address] Jan, [facility] [place] [facility] [address] [id number] [place] [address] Jan, [facility] [place] [facility] [address] [id number] [place] [address] Jan, [facility] [place] [facility] [address] [id number] [place] [address] Jan, [facility] [place] [facility] [address] [id number] [place] [address] Jan, [facility] [place] [facility] [address] [id number] [place] [address] Dec, [facility] [place] [facility] [address] [id number] [place] [address] Dec, [facility] [place] [facility] [address] [id number] [place] [address] Dec, [facility] [place] [facility] [address] [id number] [place] [address] Dec, [facility] [place] [facility] [address] [id number], [place] [address] Dec, [facility] [place] [facility] [address] [id number] [place] [address] Dec, [facility] [place] [facility] [address] [id number] [place] [address] Dec, [facility] [place] [facility] [address] [id number], [place] [address] Dec, [facility] [place] [facility] [address] [id number], [place] [address] Nov, [facility] [place] [facility] [address] [id number] [place] [address] Nov, [facility] [place] [facility] [address] [id number] [place] [address] Nov, [facility] [place] [facility] [address] [id number] [place] [address] Nov, [facility] [place] [facility] [address] [id number] [place] [address] Oct, [facility] [place] [facility] [address] [id number] [place] [address] Oct, [facility] [place] [facility] [address] [id number] [place] [address] Oct, [facility] [place] [facility] [address] [id number] [place] [address] Oct, [facility] [place] [facility] [address] [id number] [place] [address] Oct, [facility] [place] [facility] [address] [id number] [place] [address] Oct, [facility] [place] [facility] [address] [id number] [place] [address] Sep, [facility] [place] [facility] [address] [id number] [place] [address] Sep, [facility] [place] [facility] [address] [id number] [place] [address] Sep, [facility] [place] [facility] [address] [id number] [place] [address] Sep, [facility] [place] [facility] [address] [id number] [place] [address] Sep, [facility] [place] [facility] [address] [id number] [place] [address] Sep, [facility] [place] [facility] [address] [id number] [place] [address] Sep, [facility] [place] [facility] [address] [id number] [place] [address] Sep, [facility] [place] [facility] [address] [id number] [place] [address] Sep, [facility] [place] [facility] [address] [id number] [place] [address] Sep, [facility] [place] [facility] [address] [id number] [place] [address] Aug, [facility] [place] [facility] [address] [id number] [place] [address] Aug, [facility] [place] [facility] [address] [id number] [place] [address] Aug, [facility] [place] [facility] [address] [id number] [place] [address] Aug, [facility] [place] [facility] [address] [id number] [place] [address] Aug, [facility] [place] [facility] [address] [id number] [place] [address] Aug, [facility] [place] [facility] [address] [id number] [place] [address] Aug, [facility] [place] [facility] [address] [id number] [place] [address] Aug, [facility] [place] [facility] [address] [id number] [place] [address] Aug, [facility] [place] [facility] [address] [id number] [place] [address] Aug, [facility] [place] [facility] [address] [id number] [place] [address] July, [facility] [place] [facility] [address] [id number] [place] [address] July, [facility] [place] [facility] [address] [id number] [place] [address] July, [facility] [place] [facility] [address] [id number] [place] [address] July, [facility] [place] [facility] [address] [id number] [place] [address] July, [facility] [place] [facility] [address] [id number] [place] [address] July, [facility] [place] [facility] [address] [id number] [place] [address] July, [facility] [place] [facility] [address] [id number] [place] [address] July, [facility] [place] [facility] [address] [id number] [place] [address] Jun, [facility] [place] [facility] [address] [id number] [place] [address] Jun, [facility] [place] [facility] [address] [id number] [place] [address] Jun, [facility] [place] [facility] [address] [id number] [place] [address] Jun, [facility] [place] [facility] [address] [id number] [place] [address] May, [facility] [place] [facility] [address] [id number] [place] [address] May, [facility] [place] [facility] [address] [id number] [place] [address] May, [facility] [place] [facility] [address] [id number] [place] [address] May, [facility] [place] [facility] [address] [id number] [place] [address] May, [facility] [place] [facility] [address] [id number] [place] [address] May, [facility] [place] [facility] [address] [id number] [place] [address] Apr, [facility] [place] [facility] [address] [id number] [place] [address] Apr, [facility] [place] [facility] [address] [id number] [place] [address] Apr, [facility] [place] [facility] [address] [id number] [place] [address] Apr, [facility] [place] [facility] [address] [id number] [place] [address] Apr, [facility] [place] [facility] [address] [id number] [place] [address] Apr, [facility] [place] [facility] [address] [id number] [place] [address] Apr, [facility] [place] [facility] [address] [id number] [place] [address] Apr, [facility] [place] [facility] [address] [id number] [place] [address] Apr, [facility] [place] [facility] [address] [id number] [place] [address] Apr, [facility] [place] [facility] [address] [id number] [place] [address] Mar, [facility] [place] [facility] [address] [id number] [place] [address] Mar, [facility] [place] [facility] [address] [id number] [place] [address] Mar, [facility] [place] [facility] [address] [id number] [place] [address] Mar, [facility] [place] [facility] [address] [id number] [place] [address] Mar, [facility] [place] [facility] [address] [id number] [place] [address] Mar, [facility] [place] [facility] [address] [id number] [place] [address] Mar, [facility] [place] [facility] [address] [id number] [place] [address] Mar, [facility] [place] [facility] [address] [id number] [place] [address] Feb, [facility] [place] [facility] [address] [id number] [place] [address] Feb, [facility] [place] [facility] [address] [id number] [place] [address] Feb, [facility] [place] [facility] [address] [id number] [place] [address] Feb, [facility] [place] [facility] [address] [id number] [place] [address] Feb, [facility] [place] [facility] [address] [id number] [place] [address] Feb, [facility] [place] [facility] [address] [id number] [place] [address] Feb, [facility] [place] [facility] [address] [id number], [place] [address] Feb, [facility] [place] [facility] [address] [id number], [place] [address] Feb, [facility] [place] [facility] [address] [id number] [place] [address] Feb, [facility] [place] [facility] [address] [id number] [place] [address] Jan, [facility] [place] [facility] [address] [id number] [place] [address] Jan, [facility] [place] [facility] [address] [id number] [place] [address] 20 Jan, 2013 [facility] [address] [id number] [place] [address] 20 Jan, 2013 [facility] [place] [facility] [address] [id number] [place] [address] 18 Jan, 2013 [facility] [place] [facility] [address] [id number] [place] [address] 15 Jan, 2013 [facility] [place] [facility] [address] [id number] [place] [address] 15 Jan, 2013 [facility] [place] [facility] [address] [id number] [place] [address] 14 Jan, 2013 [facility] [place] [facility] [address] [id number] [place] [address] 14 Jan, 2013 [facility] [place] [facility] [address] [id number] [place] [address] 06 Jan, 2013 [facility] [place] [facility] [address] [id number] [place] [address] 06 Jan, 2013 [facility] [place] [facility] [address] [id number] [place] [address] 05 Jan, 2013 [facility] [place] [facility] [address] [facility] [id number] [place] [address] 05 Jan, 2013 [facility] [place] [facility] [address] [id number] [place] [address] Dec, [facility] [place] [facility] [address] [id number], [place] [address] Dec, [facility] [place] [facility] [address] [id number] [place] [address] Dec, [facility] [place] [facility] [address] [id number] [place] [address] Dec, [facility] [place] [facility] [address] [id number], [place] [address] 27 Nov, 2012 [facility] [place] [facility] [address] [id number] [place] [address] Nov, [facility] [place] [facility] [address] [id number] [place] [address] Nov, [facility] [place] [facility] [address] [id number] [place] [address] Oct, [facility] [place] [facility] [address] [id number] [place] [address] Oct, [facility] [place] [facility] [address] [id number] [place] [address] Oct, [facility] [place] [facility] [address] [id number] [place] [address] Oct, [facility] [place] [facility] [address] [id number] [place] [address] Oct, [facility] [place] [facility] [address] [id number] [place] [address] Oct, [facility] [place] [facility] [address] [id number] [place] [address] Sep, [facility] [place] [facility] [address] [id number] [place] [address] Sep, [facility] [place] [facility] [address] [id number] [place] [address] Sep, [facility] [place] [facility] [address] [id number] [place] [address] Sep, [facility] [place] [facility] [address] [id number] [place] [address] Sep, [facility] [place] [facility] [address] [id number] [place] [address] Sep, [facility] [place] [facility] [address] [id number] [place] [address] Sep, [facility] [place] [facility] [address] [id number] [place] [address] Sep, [facility] [address] [id number] [place] [address] Sep, [facility] [place] [facility] [address] [id number] [place] [address] Aug, [facility] [place] [facility] [address] [id number] [place] [address] Aug, [facility] [place] [facility] [address] [id number] [place] [address] Aug, [facility] [place] [facility] [address] [id number] [place] [address] Aug, [facility] [place] [facility] [address] [id number] [place] [address] Aug, [facility] [place] [facility] [address] [id number] [place] [address] Aug, [facility] [place] [facility] [address] [id number] [place] [address] Aug, [facility] [place] [facility] [address] [id number] [place] [address] July, [facility] [place] [facility] [address] [id number] [place] [address] July, [facility] [place] [facility] [address] [id number] [place] [address] July, [facility] [place] [facility] [address] [id number] [place] [address] Jun, [facility] [place] [facility] [address] [id number] [place] [address] Jun, [facility] [place] [facility] [address] [id number] [place] [address] Jun, [facility] [place] [facility] [address] [id number] [place] [address] Jun, [facility] [place] [facility] [address] [id number] [place] [address] 29 May, 2012 [facility] [address] [id number] [place] [address] 18 May, 2012 [facility] [address] [id number] [place] [address] 18 May, 2012 [facility] [address] [id number] [place] [address] 15 May, 2012 [facility] [address] [id number] [place] [address] 14 May, 2012 [facility] [address] [id number] [place] [address] 07 May, 2012 [facility] [address] [id number] [place] [address] 06 May, 2012 [facility] [address] [id number] [place] [id number] 04 May, 2012 [facility] [address] [id number] [place] [address] 18 Apr, 2012 [facility] [address] [id number] [place] [address] 17 Feb, 2012 [facility] [address] [id number] [place] [address] 17 Feb, 2012 [facility] [address] [id number] [place] [address] 17 Feb, 2012 [facility] [address] [id number] [place] [address] 17 Feb, 2012 [facility] [address] [id number] [place] [address] 13 Feb, 2012 [facility] [address] [id number] [place] [address] 13 Feb, 2012 [facility] [address] [id number] [place] [address] Feb, [facility] [place] [facility] [address] [id number] [place] [address] Feb, [facility] [place] [facility] [address] [id number] [place] [address] Feb, [facility] [place] [facility] [address] [id number] [place] [address] Feb, [facility] [place] [facility] [address] [id number] [place] [address] Jan, [facility] [place] [facility] [address] [id number] [place] [address] Jan, [facility] [place] [facility] [address] [id number] [place] [address] Jan, [facility] [place] [facility] [address] [id number] [place] [address] Jan, [facility] [place] [facility] [address] [id number], [place] [address] Jan, [facility] [place] [facility] [address] [id number] [place] [address] Jan, [facility] [place] [facility] [address] [facility] [id number], [place] [address] Jan, [facility] [place] [facility] [address] [id number], [place] [address] Jan, [facility] [place] [facility] [address] [id number], [place] [address] Dec, [facility] [place] [facility] [address] [id number], [place] [address] Dec, [facility] [place] [facility] [address] [id number], [place] [address] Dec, [facility] [place] [facility] [address] [facility] [id number], [place] [address] Dec, [facility] [place] [facility] [address] [id number], [place] [address] Dec, [facility] [place] [facility] [address] [id number] [place] [address] Dec, [facility] [place] [facility] [address] [id number] [place] [address] Dec, [facility] [place] [facility] [address] [id number] [place] [address] Nov, [facility] [place] [facility] [address] [id number] [place] [address] Nov, [facility] [place] [facility] [address] [id number] [place] [address] Nov, [facility] [place] [facility] [address] [id number] [place] [address] Oct, [facility] [place] [facility] [address] [id number] [place] [address] Oct, [facility] [place] [facility] [address] [id number] [place] [address] Oct, [facility] [place] [facility] [address] [id number] [place] [address] Oct, [facility] [place] [facility] [address] [id number] [place] [address] Sep, [facility] [place] [facility] [address] [id number] [place] [address] Sep, [facility] [place] [facility] [address] [id number] [place] [address] Sep, [facility] [place] [facility] [address] [id number] [place] [address] Aug, [facility] [place] [facility] [address] [id number] [place] [address] Aug, [facility] [place] [facility] [address] [facility] [id number] [place] [address] July, [facility] [place] [facility] [address] [id number] [place] [address] July, [facility] [place] [facility] [address] [id number] [place] [address] July, [facility] [place] [facility] [address] [id number] [place] [address] Jun, [facility] [place] [facility] [address] [id number] [place] [address] Jun, [facility] [place] [facility] [address] [id number] [place] [address] May, [facility] [place] [facility] [address] [id number] [place] [address] Apr, [facility] [place] [facility] [address] [id number] [place] [address] Apr, [facility] [place] [facility] [address] [id number] [place] [address] Apr, [facility] [place] [facility] [address] [id number] [place] [address] Mar, [facility] [place] [facility] [address] [id number] [place] [address] Mar, [facility] [place] [facility] [address] [id number] [place] [address] Mar, [facility] [place] [facility] [address] [id number] [place] [address] Mar, [facility] [place] [facility] [address] [id number] [place] [address] Feb, [facility] [place] [facility] [address] [id number] [place] [address] Feb, [facility] [place] [facility] [address] [id number] [place] [address] Feb, [facility] [place] [facility] [address] [id number] [place] [address] 05 Feb, 2011 [facility] [place] [facility] [address] [id number] [place] [address] 30 Jan, 2011 [facility] [place] [facility] [address] [id number] [place] [address] 17 Jan, 2011 [facility] [place] [facility] [address] [id number] [place] [address] 16 Jan, 2011 [facility] [place] [facility] [address] [id number] [place] [address] 16 Jan, 2011 [facility] [place] [facility] [address] [id number] [place] [address] Jan, [facility] [place] [facility] [address] [id number] [place] [address] Dec, [facility] [place] [facility] [address] [id number] [place] [address] Sep, [facility] [place] [facility] [address] [id number] [place] [address] 31 Feb, 2010 [facility] [place] [facility] [address] [id number] [place] [address] 30 Feb, 2010 [facility] [place] [facility] [address] [id number] [place] [address] Feb, [facility] [place] [facility] [address] [id number], [place] [address] 29 Dec, 2009 [facility] [place] [facility] [address] [id number], [place] [address] Dec, [facility] [place] [facility] [address] [id number] [place] [address] Oct, [facility] [place] [facility] [address] [id number] [place] [address] 15 Aug, 2009 [facility] [place] [facility] [address] [id number] [place] [address] 15 Feb, 2009 [facility] [place] [facility] [address] [id number], [place] [address] Feb, [facility] [id number], [place] [address] Jan, [facility] [id number], [place] [address] Jan, [facility] [id number], [place] [address] Dec, [facility] [id number], [place] [address] Dec, [facility] [id number], [place] [address] Nov, IMMUNIZATIONS No Known Immunizations SOCIAL HISTORY Never Assessed REASON FOR VISIT Pneumonia PLAN OF CARE VITAL SIGNS MEDICATIONS Unknown [...]
--- OUTSIDE RECORDS SUMMARY | 2018-09-29 17:52 | XMS REPORT ---
Author Author [facility] Address [address] [place] [address] Care Team Providers Care Marketing Team Lead Name Role Phone HARRY CLAUS Unavailable PROBLEMS Type Condition ICD9-CM Code YGL12-VK Code Onset Dates Condition Status SNOMED Code Problem Hyperlipemia E78.5 Active 18529405 Problem High risk medication use Z79.899 Active 265962059 Problem Seizures R56.9 Active 56683635 Problem Intermittent explosive disorder 312.34 Active 13392203 Problem Paranoid schizophrenia, chronic condition 295.32 Active 47689457 Problem Mildly mentally retarded F70 Active 78239955 Problem Constipation, unspecified constipation type K59.00 Active 10323392 Problem Severe episode of recurrent major depressive disorder, with psychotic features F33.3 Active 52627112 Problem Paranoid schizophrenia, chronic condition F20.0 Active 51026884 Problem Stress incontinence, male N39.3 Active 064920148 Problem Unsteady gait R26.81 Active 14906388 Problem Mild intellectual disabilities F70 Active [id number] ALLERGIES No Information ENCOUNTERS Encounter Location Date Diagnosis [facility], [place] [id number] [place] [address] Oct, [facility], [place] [id number] [place] [address] Sep, [facility], [place] [id number] [place] [address] July, Paranoid schizophrenia, chronic condition F20.0 and Mild intellectual disabilities F70 [facility], [place] [id number] [place] [address] Jun, Paranoid schizophrenia, chronic condition F20.0 [facility], [place] [id number] [place] [address] May, [facility], [place] [id number] [place] [address] 13 Apr, 2017 Paranoid schizophrenia, chronic condition F20.0 ; Mild intellectual disabilities F70 and High risk medication use Z79.899 [place] [id number] [place] [address] 08 Apr, 2017 [place] [place] [id number] [place] [address] Mar, [facility] [id number] [place] [address] Mar, [facility] [id number] [place] [address] Mar, Contusion of nose, initial encounter S00.33XA [place] [id number] [place] [address] Mar, Paranoid schizophrenia, chronic condition F20.0 ; Severe episode of recurrent major depressive disorder, with psychotic features F33.3 and Mild intellectual disabilities F70 [facility] [id number] [place] [address] Mar, Constipation, unspecified constipation type K59.00 and Abrasion of right ear, initial encounter S00.411A [place] [id number] [place] [address] Mar, [facility] [id number] [place] [id number] Feb, Encounter for dental examination and cleaning without abnormal findings Z01.20 [place] [id number] [place] [address] Feb, [facility] [place] [id number] [place] [address] Feb, Paranoid schizophrenia, chronic condition F20.0 ; Mild intellectual disabilities F70 and High risk medication use Z79.899 [place] [address] [place] [address] Jan, [facility] [id number] [place] [address] Jan, Unsteady gait R26.81 [facility], [place] [id number] [address] Dec, Encounter for immunization Z23 [facility], [place] [id number] [place] [address] Nov, [facility], [place] [id number] [place] [address] Oct, Paranoid schizophrenia, chronic condition F20.0 ; Mild intellectual disabilities F70 and High risk medication use Z79.899 [facility], [place] [id number] [place] [address] Sep, [facility], [place] [id number] [place] [address] July, [facility], [place] [id number] [place] [address] Jun, High risk medication use Z79.899 [facility], [place] [id number] [place] [address] Apr, [facility], [place] [address] [address] Apr, Paranoid schizophrenia, chronic condition F20.0 ; Mild intellectual disabilities F70 and High risk medication use Z79.899 [facility], [place] [id number] [address] Apr, [facility], [place] [id number] [place] [address] Feb, [facility], [place] [id number] [place] [address] Jan, [facility], [place] [id number] [place] [address] Jan, [facility], [place] [address] [facility] [id number] [address] Jan, Paranoid schizophrenia, chronic condition F20.0 [facility], [place] [id number] [address] Dec, Paranoid schizophrenia, chronic condition F20.0 ; Mild intellectual disabilities F70 and High risk medication use Z79.899 [facility], [place] [address] [address] Dec, [facility], [place] [id number] [address] Nov, Paranoid schizophrenia, chronic condition F20.0 ; Mild intellectual disabilities F70 and High risk medication use Z79.899 [facility], [place] [address] [address] Oct, [facility], [place] [id number] [address] Oct, [facility], [place] [id number] [address] Oct, [facility], [place] [address] [address] Oct, [facility], [place] [address] [address] Aug, [facility], [place] [id number] [address] Jun, Paranoid schizophrenia, chronic condition F20.0 ; High risk medication use Z79.899 and Mild intellectual disabilities F70 [facility], [place] [id number] [address] Apr, High risk medication use Z79.899 ; Paranoid schizophrenia, chronic condition F20.0 and Mild intellectual disabilities F70 [facility] [address] [id number] Apr, Encounter for dental examination Z01.20 [facility], [place] [address] [address] Apr, [facility], [place] [id number] [place] [address] Mar, Paranoid schizophrenia, chronic condition F20.0 ; Mildly mentally retarded F70 and High risk medication use Z79.899 [facility], [place] [id number] [place] [address] Feb, Paranoid schizophrenia F20.0 [facility], [place] [id number] [place] [address] Dec, [facility], [place] [id number] [place] [address] Dec, Paranoid schizophrenia, chronic condition F20.0 and Mild mental retardation F70 [facility], [place] [id number] [place] [address] Dec, [facility], [place] [id number] [place] [address] Dec, [facility], [place] [id number] [place] [address] Dec, [facility], [place] [address] [address] Dec, High risk medication use Z79.899 and Hyperlipemia E78.5 [facility], [place] [address] [address] Nov, [facility], [place] [id number] [place] [address] Sep, [facility], [place] [id number] [place] [address] Sep, Paranoid schizophrenia, chronic condition 295.32 and Mild mental retardation 317 [facility], [place] [id number] [place] [address] 14 Jun, 2014 [facility] [place] [facility] [address] [id number] [place] [address] 13 Jun, 2014 [facility] [place] [facility] [address] [id number] [place] [address] Apr, 2014 [facility] [place] [facility] [address] [id number] [place] [address] Apr, 2014 [facility] [place] [facility] [address] [id number] [place] [address] Apr, 2014 [facility] [place] [facility] [address] [id number] [place] [address] Apr, 2014 [facility] [place] [facility] [address] [id number] [place] [address] Apr, [facility] [place] [facility] [address] [id number] [place] [address] Apr, [facility] [place] [facility] [address] [id number] [place] [address] Mar, [facility] [place] [facility] [address] [id number] [place] [address] Mar, [facility] [place] [facility] [address] [facility] [id number] [place] [address] Mar, [facility] [place] [facility] [address] [id number] [place] [address] Mar, [facility] [place] [facility] [address] [id number] [place] [address] Mar, [facility] [place] [facility] [address] [id number] [place] [address] Mar, [facility] [place] [facility] [address] [facility] [id number] [place] [address] Feb, [facility] [place] [facility] [address] [id number] [place] [address] Feb, [facility] [place] [facility] [address] [id number] [place] [address] Jan, [facility] [place] [facility] [address] [id number] [place] [address] Jan, [facility] [place] [facility] [address] [id number] [place] [address] Jan, [facility] [place] [facility] [address] [id number] [place] [address] Jan, [facility] [place] [facility] [address] [id number] [place] [address] Jan, [facility] [place] [facility] [address] [id number] [place] [address] Jan, [facility] [place] [facility] [address] [id number] [place] [address] Jan, [facility] [place] [facility] [address] [id number] [place] [address] Dec, [facility] [place] [facility] [address] [id number] [place] [address] Dec, [facility] [place] [facility] [address] [id number] [place] [address] Dec, [facility] [place] [facility] [address] [id number] [place] [address] Dec, [facility] [place] [facility] [address] [id number] [address] Dec, [facility] [place] [facility] [address] [id number] [place] [address] Dec, [facility] [place] [facility] [address] [id number] [place] [address] Dec, [facility] [place] [facility] [address] [id number], [place] [address] Dec, [facility] [place] [facility] [address] [id number], [place] [address] Nov, [facility] [place] [facility] [address] [id number] [place] [address] Nov, [facility] [place] [facility] [address] [id number] [place] [address] Nov, [facility] [place] [facility] [address] [id number] [place] [address] Nov, [facility] [place] [facility] [address] [id number] [place] [address] Oct, [facility] [place] [facility] [address] [id number] [place] [address] Oct, [facility] [place] [facility] [address] [id number] [place] [address] Oct, [facility] [place] [facility] [address] [id number] [place] [address] Oct, [facility] [place] [facility] [address] [id number] [place] [address] Oct, [facility] [place] [facility] [address] [id number] [place] [address] Oct, [facility] [place] [facility] [address] [id number] [place] [address] Sep, [facility] [place] [facility] [address] [id number] [place] [address] Sep, [facility] [place] [facility] [address] [id number] [place] [address] Sep, [facility] [place] [facility] [address] [id number] [place] [address] Sep, [facility] [place] [facility] [address] [id number] [place] [address] Sep, [facility] [place] [facility] [address] [id number] [place] [address] Sep, [facility] [place] [facility] [address] [id number] [place] [address] Sep, [facility] [place] [facility] [address] [id number] [place] [address] Sep, [facility] [place] [facility] [address] [id number] [place] [address] Sep, [facility] [place] [facility] [address] [id number] [place] [address] Sep, [facility] [place] [facility] [address] [id number] [place] [address] Aug, [facility] [place] [facility] [address] [id number] [place] [address] Aug, [facility] [place] [facility] [address] [id number] [place] [address] Aug, [facility] [place] [facility] [address] [id number] [place] [address] Aug, [facility] [place] [facility] [address] [id number] [place] [address] Aug, [facility] [place] [facility] [address] [id number] [place] [address] Aug, [facility] [place] [facility] [address] [id number] [place] [address] Aug, [facility] [place] [facility] [address] [id number] [place] [address] Aug, [facility] [place] [facility] [address] [id number] [place] [address] Aug, [facility] [place] [facility] [address] [id number] [place] [address] Aug, [facility] [place] [facility] [address] [id number] [place] [address] July, [facility] [place] [facility] [address] [id number] [place] [address] July, [facility] [place] [facility] [address] [id number] [place] [address] July, [facility] [place] [facility] [address] [id number] [place] [address] July, [facility] [place] [facility] [address] [id number] [place] [address] July, [facility] [place] [facility] [address] [id number] [place] [address] July, [facility] [place] [facility] [address] [id number] [place] [address] July, [facility] [place] [facility] [address] [id number] [place] [address] July, [facility] [place] [facility] [address] [id number] [place] [address] Jun, [facility] [place] [facility] [address] [id number] [place] [address] Jun, [facility] [place] [facility] [address] [id number] [place] [address] Jun, [facility] [place] [facility] [address] [id number] [place] [address] Jun, [facility] [place] [facility] [address] [id number] [place] [address] May, [facility] [place] [facility] [address] [id number] [place] [address] May, [facility] [place] [facility] [address] [id number] [place] [address] May, [facility] [place] [facility] [address] [id number] [place] [address] May, [facility] [place] [facility] [address] [id number] [place] [address] May, [facility] [place] [facility] [address] [id number] [place] [address] May, [facility] [place] [facility] [address] [id number] [place] [address] Apr, [facility] [place] [facility] [address] [id number] [place] [address] Apr, [facility] [place] [facility] [address] [id number] [place] [address] Apr, [facility] [place] [facility] [address] [id number] [place] [address] Apr, [facility] [place] [facility] [address] [id number] [place] [address] Apr, [facility] [place] [facility] [address] [id number] [place] [address] Apr, [facility] [place] [facility] [address] [id number] [place] [address] Apr, [facility] [place] [facility] [address] [id number] [place] [address] Apr, [facility] [place] [facility] [address] [id number] [place] [address] Apr, [facility] [place] [facility] [address] [id number] [place] [address] Apr, [facility] [place] [facility] [address] [id number] [place] [address] Mar, [facility] [place] [facility] [address] [id number] [place] [address] Mar, [facility] [place] [facility] [address] [id number] [place] [address] Mar, [facility] [place] [facility] [address] [id number] [place] [address] Mar, [facility] [place] [facility] [address] [id number] [place] [address] Mar, [facility] [place] [facility] [address] [id number] [place] [address] Mar, [facility] [place] [facility] [address] [id number] [place] [address] Mar, [facility] [place] [facility] [address] [id number] [place] [address] Mar, [facility] [place] [facility] [address] [id number] [place] [address] Feb, [facility] [place] [facility] [address] [id number] [place] [address] Feb, [facility] [place] [facility] [address] [id number] [place] [address] Feb, [facility] [place] [facility] [address] [id number] [place] [address] Feb, [facility] [place] [facility] [address] [id number] [place] [address] Feb, [facility] [place] [facility] [address] [id number] [place] [address] Feb, [facility] [place] [facility] [address] [id number] [place] [address] Feb, [facility] [place] [facility] [address] [id number] [address] Feb, [facility] [place] [facility] [address] [id number], [place] [address] Feb, [facility] [place] [facility] [address] [id number] [place] [address] Feb, [facility] [place] [facility] [address] [id number] [place] [address] Jan, [facility] [place] [facility] [address] [id number] [place] [address] Jan, [facility] [place] [facility] [address] [id number] [place] [address] 20 Jan, 2013 [facility] [address] [id number] [place] [address] 20 Jan, 2013 [facility] [place] [facility] [address] [id number] [place] [address] 18 Jan, 2013 [facility] [place] [facility] [address] [id number] [place] [address] 15 Jan, 2013 [facility] [place] [facility] [address] [id number] [place] [address] 15 Jan, 2013 [facility] [place] [facility] [address] [id number] [place] [address] 14 Jan, 2013 [facility] [place] [facility] [address] [id number] [place] [address] 14 Jan, 2013 [facility] [place] [facility] [address] [id number] [place] [address] 06 Jan, 2013 [facility] [place] [facility] [address] [id number] [place] [address] 06 Jan, 2013 [facility] [place] [facility] [address] [id number] [place] [address] 05 Jan, 2013 [facility] [place] [facility] [address] [facility] [id number] [place] [address] 05 Jan, 2013 [facility] [place] [facility] [address] [id number] [place] [address] Dec, [facility] [place] [facility] [address] [id number] [address] Dec, [facility] [place] [facility] [address] [id number] [place] [address] Dec, [facility] [place] [facility] [address] [id number] [place] [address] Dec, [facility] [place] [facility] [address] [id number], [place] [address] 27 Nov, 2012 [facility] [place] [facility] [address] [id number] [place] [address] Nov, [facility] [place] [facility] [address] [id number] [place] [address] Nov, [facility] [place] [facility] [address] [id number] [place] [address] Oct, [facility] [place] [facility] [address] [id number] [place] [address] Oct, [facility] [place] [facility] [address] [id number] [place] [address] Oct, [facility] [place] [facility] [address] [id number] [place] [address] Oct, [facility] [place] [facility] [address] [id number] [place] [address] Oct, [facility] [place] [facility] [address] [id number] [place] [address] Oct, [facility] [place] [facility] [address] [id number] [place] [address] Sep, [facility] [place] [facility] [address] [id number] [place] [address] Sep, [facility] [place] [facility] [address] [id number] [place] [address] Sep, [facility] [place] [facility] [address] [id number] [place] [address] Sep, [facility] [place] [facility] [address] [id number] [place] [address] Sep, [facility] [place] [facility] [address] [id number] [place] [address] Sep, [facility] [place] [facility] [address] [id number] [place] [address] Sep, [facility] [place] [facility] [address] [id number] [place] [address] Sep, [facility] [address] [id number] [place] [address] Sep, [facility] [place] [facility] [address] [id number] [place] [address] Aug, [facility] [place] [facility] [address] [id number] [place] [address] Aug, [facility] [place] [facility] [address] [id number] [place] [address] Aug, [facility] [place] [facility] [address] [id number] [place] [address] Aug, [facility] [place] [facility] [address] [id number] [place] [address] Aug, [facility] [place] [facility] [address] [id number] [place] [address] Aug, [facility] [place] [facility] [address] [id number] [place] [address] Aug, [facility] [place] [facility] [address] [id number] [place] [address] July, [facility] [place] [facility] [address] [id number] [place] [address] July, [facility] [place] [facility] [address] [id number] [place] [address] July, [facility] [place] [facility] [address] [id number] [place] [address] Jun, [facility] [place] [facility] [address] [id number] [place] [address] Jun, [facility] [place] [facility] [address] [id number] [place] [address] Jun, [facility] [place] [facility] [address] [id number] [place] [address] Jun, [facility] [place] [facility] [address] [id number] [place] [address] 29 May, 2012 [facility] [address] [id number] [place] [address] 18 May, 2012 [facility] [address] [id number] [place] [address] 18 May, 2012 [facility] [address] [id number] [place] [address] 15 May, 2012 [facility] [address] [id number] [place] [address] 14 May, 2012 [facility] [address] [id number] [place] [address] 07 May, 2012 [facility] [address] [id number] [place] [address] 06 May, 2012 [facility] [address] [id number] [place] [address] 04 May, 2012 [facility] [address] [id number] [place] [address] 18 Apr, 2012 [facility] [address] [id number] [place] [address] 17 Feb, 2012 [facility] [facility] [address] [id number] [place] [address] 17 Feb, 2012 [facility] [address] [id number] [place] [address] 17 Feb, 2012 [facility] [address] [id number] [place] [address] 17 Feb, 2012 [facility] [address] [id number] [place] [address] 13 Feb, 2012 [facility] [address] [id number] [place] [address] 13 Feb, 2012 [facility] [address] [id number] [place] [address] Feb, [facility] [place] [facility] [address] [id number] [place] [address] Feb, [facility] [place] [facility] [address] [id number] [place] [address] Feb, [facility] [place] [facility] [address] [id number] [place] [address] Feb, [facility] [place] [facility] [address] [id number] [place] [address] Jan, [facility] [place] [facility] [address] [id number] [place] [address] Jan, [facility] [place] [facility] [address] [id number] [place] [address] Jan, [facility] [place] [facility] [address] [id number] [place] [address] Jan, [facility] [place] [facility] [address] [id number], [place] [address] Jan, [facility] [place] [facility] [address] [id number] [place] [address] Jan, [facility] [place] [facility] [address] [facility] [id number] [address] Jan, [facility] [place] [facility] [address] [id number][place] [address] Jan, [facility] [place] [facility] [address] [id number], [place] [address] Dec, [facility] [place] [facility] [address] [id number], [place] [address] Dec, [facility] [place] [facility] [address] [id number] [address] Dec, [facility] [place] [facility] [address] [facility] [id number], [place] [address] Dec, [facility] [place] [facility] [address] [id number], [place] [address] Dec, [facility] [place] [facility] [address] [id number] [place] [address] Dec, [facility] [place] [facility] [address] [id number] [place] [address] Dec, [facility] [place] [facility] [address] [id number] [place] [address] Nov, [facility] [place] [facility] [address] [id number] [place] [address] Nov, [facility] [place] [facility] [address] [id number] [place] [address] Nov, [facility] [place] [facility] [address] [id number] [place] [address] Oct, [facility] [place] [facility] [address] [id number] [place] [address] Oct, [facility] [place] [facility] [address] [id number] [place] [address] Oct, [facility] [place] [facility] [address] [id number] [place] [address] Oct, [facility] [place] [facility] [address] [id number] [place] [address] Sep, [facility] [place] [facility] [address] [id number] [place] [address] Sep, [facility] [place] [facility] [address] [id number] [place] [address] Sep, [facility] [place] [facility] [address] [id number] [place] [address] Aug, [facility] [place] [facility] [address] [id number] [place] [address] Aug, [facility] [place] [facility] [address] [facility] [id number] [place] [address] July, [facility] [place] [facility] [address] [id number] [place] [address] July, [facility] [place] [facility] [address] [id number] [place] [address] July, [facility] [place] [facility] [address] [id number] [place] [address] Jun, [facility] [place] [facility] [address] [id number] [place] [address] Jun, [facility] [place] [facility] [address] [id number] [place] [address] May, [facility] [place] [facility] [address] [id number] [place] [address] Apr, [facility] [place] [facility] [address] [id number] [place] [address] Apr, [facility] [place] [facility] [address] [id number] [place] [address] Apr, [facility] [place] [facility] [address] [id number] [place] [address] Mar, [facility] [place] [facility] [address] [id number] [place] [address] Mar, [facility] [place] [facility] [address] [id number] [place] [address] Mar, [facility] [place] [facility] [address] [id number] [place] [address] Mar, [facility] [place] [facility] [address] [id number] [place] [address] Feb, [facility] [place] [facility] [address] [id number] [place] [address] Feb, [facility] [place] [facility] [address] [id number] [place] [address] Feb, [facility] [place] [facility] [address] [id number] [place] [address] 05 Feb, 2011 [facility] [place] [facility] [address] [id number] [place] [address] 30 Jan, 2011 [facility] [place] [facility] [address] [id number] [place] [address] 17 Jan, 2011 [facility] [place] [facility] [address] [id number] [place] [address] 16 Jan, 2011 [facility] [place] [facility] [address] [id number] [place] [address] 16 Jan, 2011 [facility] [place] [facility] [address] [id number] [place] [address] Jan, [facility] [place] [facility] [address] [id number] [place] [address] Dec, [facility] [place] [facility] [address] [id number] [place] [address] Sep, [facility] [place] [facility] [address] [id number] [place] [address] 31 Feb, 2010 [facility] [place] [facility] [address] [id number] [place] [address] 30 Feb, 2010 [facility] [place] [facility] [address] [id number] [place] [address] Feb, [facility] [place] [facility] [address] [id number], [place] [address] 29 Dec, 2009 [facility] [place] [facility] [address] [id number], [place] [address] Dec, [facility] [place] [facility] [address] [id number] [place] [address] Oct, [facility] [place] [facility] [address] [id number] [place] [address] 15 Aug, 2009 [facility] [place] [facility] [address] [id number] [place] [address] 15 Feb, 2009 [facility] [place] [facility] [address] [id number] [address] Feb, [facility] [place] [id number], [place] [address] Jan, [facility] [place] [id number], [place] [address] Jan, [facility] [place] [id number] [place] [address] Dec, [facility] [place] [id number], [place] [address] Dec, [facility] [place] [id number], [place] [address] Nov, IMMUNIZATIONS No Known Immunizations SOCIAL HISTORY Never Assessed REASON FOR VISIT medication PLAN OF CARE VITAL SIGNS MEDICATIONS Unknown [...]
--- OUTSIDE RECORDS SUMMARY | 2018-09-29 17:53 | XMS REPORT ---
Author Author CLAUS MCDONALD [facility] Address [address] [place] [address] Care Team Providers Care Shot Polisher And Inspector Name Role Phone HARRY CLAUS Unavailable PROBLEMS Type Condition ICD9-CM Code CDV29-UW Code Onset Dates Condition Status SNOMED Code Problem Hyperlipemia E78.5 Active 91191674 Problem High risk medication use Z79.899 Active 580662611 Problem Seizures R56.9 Active 81055834 Problem Intermittent explosive disorder 312.34 Active 08896657 Problem Paranoid schizophrenia, chronic condition 295.32 Active 19631381 Problem Mildly mentally retarded F70 Active 60105504 Problem Constipation, unspecified constipation type K59.00 Active 13943687 Problem Severe episode of recurrent major depressive disorder, with psychotic features F33.3 Active 32404380 Problem Paranoid schizophrenia, chronic condition F20.0 Active 30512368 Problem Stress incontinence, male N39.3 Active 809372482 Problem Unsteady gait R26.81 Active 65689719 Problem Mild intellectual disabilities F70 Active [id number] ALLERGIES No Information ENCOUNTERS Encounter Location Date Diagnosis [facility] [id number] [place] [address] Oct, [facility] [id number] [place] [address] July, Paranoid schizophrenia, chronic condition F20.0 and Mild intellectual disabilities F70 [facility] [id number] [place] [address] Jun, Paranoid schizophrenia, chronic condition F20.0 [facility] [id number] [place] [address] May, [facility] [id number] [place] [id number] 13 Apr, 2017 Paranoid schizophrenia, chronic condition F20.0 ; Mild intellectual disabilities F70 and High risk medication use Z79.899 [facility] [id number] [place] [address] 08 Apr, 2017 [facility] [id number] [place] [address] Mar, [place] [address] [address] Mar, [facility] [id number] [place] [address] Mar, Contusion of nose, initial encounter S00.33XA [facility] [address] [address] Mar, Paranoid schizophrenia, chronic condition F20.0 ; Severe episode of recurrent major depressive disorder, with psychotic features F33.3 and Mild intellectual disabilities F70 [facility] [id number] [place] [address] Mar, Constipation, unspecified constipation type K59.00 and Abrasion of right ear, initial encounter S00.411A [facility] [id number] [place] [address] Mar, [facility] [address] [id number] Feb, Encounter for dental examination and cleaning without abnormal findings Z01.20 [facility] [id number] [place] [address] Feb, [facility] [address] [address] Feb, Paranoid schizophrenia, chronic condition F20.0 ; Mild intellectual disabilities F70 and High risk medication use Z79.899 [facility] [id number] [place] [address] Jan, [facility] [address] [place] [address] Jan, Unsteady gait R26.81 [facility] [id number] [place] [address] Dec, Encounter for immunization Z23 [facility] [id number] [place] [address] Nov, [facility] [id number] [place] [address] Oct, Paranoid schizophrenia, chronic condition F20.0 ; Mild intellectual disabilities F70 and High risk medication use Z79.899 [facility] [id number] [place] [address] Sep, [facility] [id number] [place] [address] July, [facility] [id number] [place] [address] Jun, High risk medication use Z79.899 [facility] [address] [place] [address] Apr, [facility] [id number] [place] [address] Apr, Paranoid schizophrenia, chronic condition F20.0 ; Mild intellectual disabilities F70 and High risk medication use Z79.899 [facility] [address] [place] [address] Apr, [facility] [address] [address] Feb, [facility] [id number] [place] [address] Jan, [facility] [id number] [place] [address] Jan, [facility] [id number] [place] [address] Jan, Paranoid schizophrenia, chronic condition F20.0 [facility] [address] [place] [address] Dec, Paranoid schizophrenia, chronic condition F20.0 ; Mild intellectual disabilities F70 and High risk medication use Z79.899 [facility] [id number] [place] [address] Dec, [facility] [id number] [place] [address] Nov, Paranoid schizophrenia, chronic condition F20.0 ; Mild intellectual disabilities F70 and High risk medication use Z79.899 [facility] [id number] [place] [address] Oct, [facility] [id number] [place] [address] Oct, [facility] [id number] [place] [address] Oct, [facility] [id number] [place] [address] Oct, [facility] [id number] [place] [address] Aug, [facility] [address] [place] [address] Jun, Paranoid schizophrenia, chronic condition F20.0 ; High risk medication use Z79.899 and Mild intellectual disabilities F70 [facility] [address] [place] [address] Apr, High risk medication use Z79.899 ; Paranoid schizophrenia, chronic condition F20.0 and Mild intellectual disabilities F70 [facility] [address] [id number] [id number] 17 Apr, 2015 Encounter for dental examination Z01.20 [facility] [id number] [address] Apr, [facility] [id number] [address] Mar, Paranoid schizophrenia, chronic condition F20.0 ; Mildly mentally retarded F70 and High risk medication use Z79.899 [facility] [address] [address] Feb, Paranoid schizophrenia F20.0 [facility] [id number] [place] [address] Dec, [facility] [id number] [place] [address] Dec, Paranoid schizophrenia, chronic condition F20.0 and Mild mental retardation F70 [facility] [id number] [place] [address] Dec, [facility] [id number] [place] [address] Dec, [facility] [id number] [place] [address] Dec, [facility] [id number] [place] [address] Dec, High risk medication use Z79.899 and Hyperlipemia E78.5 [facility] [address] [address] Nov, [facility] [id number] [address] Sep, [facility] [id number] [place] [address] Sep, Paranoid schizophrenia, chronic condition 295.32 and Mild mental retardation 317 [facility] [address] [address] Jun, [facility] [id number] [place] [address] Jun, [facility] [place] [facility] [address] [id number] [place] [address] Apr, 2014 [facility] [place] [facility] [address] [id number] [place] [address] Apr, 2014 [facility] [place] [facility] [address] [id number] [place] [address] Apr, 2014 [facility] [place] [facility] [address] [id number] [place] [address] Apr, 2014 [facility] [place] [facility] [address] [id number] [place] [address] Apr, [facility] [place] [facility] [address] [id number] [place] [address] Apr, [facility] [place] [facility] [address] [id number] [place] [address] Mar, [facility] [place] [facility] [address] [id number] [place] [address] Mar, [facility] [place] [facility] [address] [id number] [place] [address] Mar, [facility] [place] [facility] [address] [facility] [id number] [place] [address] Mar, [facility] [place] [facility] [address] [id number] [place] [address] Mar, [facility] [place] [facility] [address] [id number] [place] [address] Mar, [facility] [place] [facility] [address] [id number] [place] [address] Feb, [facility] [place] [facility] [address] [id number] [place] [address] Feb, [facility] [place] [facility] [address] [id number] [place] [address] Jan, [facility] [place] [facility] [address] [id number] [place] [address] Jan, [facility] [place] [facility] [address] [id number] [place] [address] Jan, [facility] [place] [facility] [address] [id number] [place] [address] Jan, [facility] [place] [facility] [address] [id number] [place] [address] Jan, [facility] [place] [facility] [address] [id number] [place] [address] Jan, [facility] [place] [facility] [address] [id number] [place] [address] Jan, [facility] [place] [facility] [address] [id number] [place] [address] Dec, [facility] [place] [facility] [address] [id number] [place] [address] Dec, [facility] [place] [facility] [address] [id number] [place] [address] Dec, [facility] [place] [facility] [address] [id number] [place] [address] Dec, [facility] [place] [facility] [address] [id number] [place] [address] Dec, [facility] [place] [facility] [address] [id number] [address] Dec, [facility] [place] [facility] [address] [id number] [place] [address] Dec, [facility] [place] [facility] [address] [id number] [place] [address] Dec, [facility] [place] [facility] [address] [id number] [place] [address] Nov, [facility] [place] [facility] [address] [id number] [address] Nov, [facility] [place] [facility] [address] [id number] [place] [address] Nov, [facility] [place] [facility] [address] [id number] [place] [address] Nov, [facility] [place] [facility] [address] [id number] [place] [address] Oct, [facility] [place] [facility] [address] [id number] [place] [address] Oct, [facility] [place] [facility] [address] [id number] [place] [address] Oct, [facility] [place] [facility] [address] [id number] [place] [address] Oct, [facility] [place] [facility] [address] [id number] [place] [address] Oct, [facility] [place] [facility] [address] [id number] [place] [address] Oct, [facility] [place] [facility] [address] [id number] [place] [address] Sep, [facility] [place] [facility] [address] [id number] [place] [address] Sep, [facility] [place] [facility] [address] [id number] [place] [address] Sep, [facility] [place] [facility] [address] [id number] [place] [address] Sep, [facility] [place] [facility] [address] [id number] [place] [address] Sep, [facility] [place] [facility] [address] [id number] [place] [address] Sep, [facility] [place] [facility] [address] [id number] [place] [address] Sep, [facility] [place] [facility] [address] [id number] [place] [address] Sep, [facility] [place] [facility] [address] [id number] [place] [address] Sep, [facility] [place] [facility] [address] [id number] [place] [address] Sep, [facility] [place] [facility] [address] [id number] [place] [address] Aug, [facility] [place] [facility] [address] [id number] [place] [address] Aug, [facility] [place] [facility] [address] [id number] [place] [address] Aug, [facility] [place] [facility] [address] [id number] [place] [address] Aug, [facility] [place] [facility] [address] [id number] [place] [address] Aug, [facility] [place] [facility] [address] [id number] [place] [address] Aug, [facility] [place] [facility] [address] [id number] [place] [address] Aug, [facility] [place] [facility] [address] [id number] [place] [address] Aug, [facility] [place] [facility] [address] [id number] [place] [address] Aug, [facility] [place] [facility] [address] [id number] [place] [address] Aug, [facility] [place] [facility] [address] [id number] [place] [address] July, [facility] [place] [facility] [address] [id number] [place] [address] July, [facility] [place] [facility] [address] [id number] [place] [address] July, [facility] [place] [facility] [address] [id number] [place] [address] July, [facility] [place] [facility] [address] [id number] [place] [address] July, [facility] [place] [facility] [address] [id number] [place] [address] July, [facility] [place] [facility] [address] [id number] [place] [address] July, [facility] [place] [facility] [address] [id number] [place] [address] July, [facility] [place] [facility] [address] [id number] [place] [address] Jun, [facility] [place] [facility] [address] [id number] [place] [address] Jun, [facility] [place] [facility] [address] [id number] [place] [address] Jun, [facility] [place] [facility] [address] [id number] [place] [address] Jun, [facility] [place] [facility] [address] [id number] [place] [address] May, [facility] [place] [facility] [address] [id number] [place] [address] May, [facility] [place] [facility] [address] [id number] [place] [address] May, [facility] [place] [facility] [address] [id number] [place] [address] May, [facility] [place] [facility] [address] [id number] [place] [address] May, [facility] [place] [facility] [address] [id number] [place] [address] May, [facility] [place] [facility] [address] [id number] [place] [address] Apr, [facility] [place] [facility] [address] [id number] [place] [address] Apr, [facility] [place] [facility] [address] [id number] [place] [address] Apr, [facility] [place] [facility] [address] [id number] [place] [address] Apr, [facility] [place] [facility] [address] [id number] [place] [address] Apr, [facility] [place] [facility] [address] [id number] [place] [address] Apr, [facility] [place] [facility] [address] [id number] [place] [address] Apr, [facility] [place] [facility] [address] [id number] [place] [address] Apr, [facility] [place] [facility] [address] [id number] [place] [address] Apr, [facility] [place] [facility] [address] [id number] [place] [address] Apr, [facility] [place] [facility] [address] [id number] [place] [address] Mar, [facility] [place] [facility] [address] [id number] [place] [address] Mar, [facility] [place] [facility] [address] [id number] [place] [address] Mar, [facility] [place] [facility] [address] [id number] [place] [address] Mar, [facility] [place] [facility] [address] [id number] [place] [address] Mar, [facility] [place] [facility] [address] [id number] [place] [address] Mar, [facility] [address] [id number] [place] [address] Mar, [facility] [place] [facility] [address] [id number] [place] [address] Mar, [facility] [place] [facility] [address] [id number] [place] [address] Feb, [facility] [place] [facility] [address] [id number] [place] [address] Feb, [facility] [place] [facility] [address] [id number] [place] [address] Feb, [facility] [place] [facility] [address] [id number] [place] [address] Feb, [facility] [place] [facility] [address] [id number] [place] [address] Feb, [facility] [place] [facility] [address] [id number] [place] [address] Feb, [facility] [place] [facility] [address] [id number] [place] [address] Feb, [facility] [place] [facility] [address] [id number] [place] [address] Feb, [facility] [place] [facility] [address] [id number] [place] [address] Feb, [facility] [place] [facility] [address] [id number], [place] [address] Feb, [facility] [place] [facility] [address] [id number] [place] [address] Jan, [facility] [place] [facility] [address] [id number] [place] [address] Jan, [facility] [place] [facility] [address] [id number] [place] [address] Jan, [facility] [place] [facility] [address] [id number] [place] [address] 20 Jan, 2013 [facility] [address] [id number] [place] [address] 18 Jan, 2013 [facility] [place] [facility] [address] [id number] [place] [address] 15 Jan, 2013 [facility] [place] [facility] [address] [id number] [place] [address] 15 Jan, 2013 [facility] [place] [facility] [address] [id number] [place] [address] 14 Jan, 2013 [facility] [place] [facility] [address] [id number] [place] [address] 14 Jan, 2013 [facility] [place] [facility] [address] [id number] [place] [address] 06 Jan, 2013 [facility] [place] [facility] [address] [id number] [place] [address] 06 Jan, 2013 [facility] [place] [facility] [address] [id number] [place] [address] 05 Jan, 2013 [facility] [place] [facility] [address] [id number] [place] [address] 05 Jan, 2013 [facility] [place] [facility] [address] [id number] [place] [address] Dec, [facility] [place] [facility] [address] [id number] [place] [address] Dec, [facility] [place] [facility] [address] [id number], [place] [address] Dec, [facility] [place] [facility] [address] [id number] [place] [address] Dec, [facility] [place] [facility] [address] [id number] [place] [address] 27 Nov, 2012 [facility] [place] [facility] [address] [id number], [place] [address] 24 Nov, 2012 [facility] [place] [facility] [address] [id number] [place] [address] Nov, [facility] [place] [facility] [address] [id number] [place] [address] Oct, [facility] [place] [facility] [address] [id number] [place] [address] Oct, [facility] [place] [facility] [address] [id number] [place] [address] Oct, [facility] [place] [facility] [address] [id number] [place] [address] Oct, [facility] [place] [facility] [address] [id number] [place] [address] Oct, [facility] [place] [facility] [address] [id number] [place] [address] Oct, [facility] [place] [facility] [address] [id number] [place] [address] Sep, [facility] [place] [facility] [address] [id number] [place] [address] Sep, [facility] [place] [facility] [address] [id number] [place] [address] Sep, [facility] [place] [facility] [address] [id number] [place] [address] Sep, [facility] [place] [facility] [address] [id number] [place] [address] Sep, [facility] [place] [facility] [address] [id number] [place] [address] Sep, [facility] [place] [facility] [address] [id number] [place] [address] Sep, [facility] [place] [facility] [address] [id number] [place] [address] Sep, [facility] [place] [facility] [address] [id number] [place] [address] Sep, [facility] [address] [id number] [place] [address] Aug, [facility] [place] [facility] [address] [id number] [place] [address] Aug, [facility] [place] [facility] [address] [id number] [place] [address] Aug, [facility] [place] [facility] [address] [id number] [place] [address] Aug, [facility] [address] [id number] [place] [address] Aug, [facility] [place] [facility] [address] [id number] [place] [address] Aug, [facility] [place] [facility] [address] [id number] [place] [address] Aug, [facility] [place] [facility] [address] [id number] [place] [address] July, [facility] [address] [id number] [place] [address] July, [facility] [place] [facility] [address] [id number] [place] [address] July, [facility] [place] [facility] [address] [id number] [place] [address] Jun, [facility] [place] [facility] [address] [id number] [place] [address] 16 Jun, 2012 [facility] [place] [facility] [address] [id number] [place] [address] Jun, [facility] [place] [facility] [address] [id number] [place] [address] Jun, [facility] [place] [facility] [address] [id number] [place] [address] May, [facility] [place] [facility] [address] [id number] [place] [address] 18 May, 2012 [facility] [address] [id number] [place] [address] 18 May, 2012 [facility] [address] [id number] [place] [address] 15 May, 2012 [facility] [address] [id number] [place] [address] 14 May, 2012 [facility] [address] [id number] [place] [address] 07 May, 2012 [facility] [address] [id number] [place] [address] 06 May, 2012 [facility] [address] [id number] [place] [address] 04 May, 2012 [facility] [address] [id number] [place] [address] 18 Apr, 2012 [facility] [address] [id number] [place] [address] 17 Feb, 2012 [facility] [address] [id number] [place] [address] 17 Feb, 2012 [facility] [address] [id number] [place] [address] 17 Feb, 2012 [facility] [address] [id number] [place] [address] 17 Feb, 2012 [facility] [address] [id number] [place] [address] 13 Feb, 2012 [facility] [address] [id number] [place] [address] 13 Feb, 2012 [facility] [address] [id number] [place] [address] 12 Feb, 2012 [facility] [address] [id number] [place] [address] Feb, [facility] [place] [facility] [address] [id number] [place] [address] Feb, [facility] [place] [facility] [address] [id number] [place] [address] Feb, [facility] [place] [facility] [address] [id number] [place] [address] Jan, [facility] [place] [facility] [address] [id number] [place] [address] Jan, [facility] [place] [facility] [address] [id number] [place] [address] Jan, [facility] [place] [facility] [address] [id number] [place] [address] Jan, [facility] [place] [facility] [address] [id number] [place] [address] Jan, [facility] [place] [facility] [address] [id number], [place] [address] Jan, [facility] [place] [facility] [address] [id number] [place] [address] Jan, [facility] [place] [facility] [address] [facility] [id number], [place] [address] Jan, [facility] [place] [facility] [address] [facility] [id number], [place] [address] Dec, [facility] [place] [facility] [address] [id number], [place] [address] Dec, [facility] [place] [facility] [address] [id number], [place] [address] Dec, [facility] [place] [facility] [address] [id number], [place] [address] Dec, [facility] [place] [facility] [address] [facility] [id number], [place] [address] Dec, [facility] [place] [facility] [address] [id number], [place] [address] Dec, [facility] [place] [facility] [address] [id number] [place] [address] Dec, [facility] [place] [facility] [address] [id number] [place] [address] Nov, [facility] [place] [facility] [address] [id number] [place] [address] Nov, [facility] [place] [facility] [address] [id number] [place] [address] Nov, [facility] [place] [facility] [address] [id number] [place] [address] Oct, [facility] [place] [facility] [address] [id number] [place] [address] Oct, [facility] [place] [facility] [address] [id number] [place] [address] Oct, [facility] [place] [facility] [address] [id number] [place] [address] Oct, [facility] [place] [facility] [address] [id number] [place] [address] Sep, [facility] [place] [facility] [address] [id number] [place] [address] Sep, [facility] [place] [facility] [address] [id number] [place] [address] Sep, [facility] [place] [facility] [address] [id number] [place] [address] Aug, [facility] [place] [facility] [address] [id number] [place] [address] Aug, [facility] [place] [facility] [address] [id number] [place] [address] July, [facility] [place] [facility] [address] [id number] [place] [address] July, [facility] [place] [facility] [address] [id number] [place] [address] July, [facility] [place] [facility] [address] [id number] [place] [address] Jun, [facility] [place] [facility] [address] [id number] [place] [address] Jun, [facility] [place] [facility] [address] [id number] [place] [address] May, [facility] [place] [facility] [address] [id number] [place] [address] Apr, [facility] [place] [facility] [address] [id number] [place] [address] Apr, [facility] [place] [facility] [address] [id number] [place] [address] Apr, [facility] [place] [facility] [address] [id number] [place] [address] Mar, [facility] [place] [facility] [address] [id number] [place] [address] Mar, [facility] [place] [facility] [address] [id number] [place] [address] Mar, [facility] [place] [facility] [address] [id number] [place] [address] Mar, [facility] [place] [facility] [address] [id number] [place] [address] Feb, [facility] [place] [facility] [address] [id number] [place] [address] Feb, [facility] [place] [facility] [address] [id number] [place] [address] Feb, [facility] [place] [facility] [address] [id number] [place] [address] Feb, [facility] [place] [facility] [address] [id number], [place] [address] 30 Jan, 2011 [facility] [place] [facility] [address] [id number] [place] [address] 17 Jan, 2011 [facility] [place] [facility] [address] [id number] [place] [address] 16 Jan, 2011 [facility] [place] [facility] [address] [id number] [place] [address] 16 Jan, 2011 [facility] [place] [facility] [address] [id number] [place] [address] Jan, [facility] [place] [facility] [address] [id number] [place] [address] 20 Dec, 2010 [facility] [place] [facility] [address] [id number] [place] [address] 18 Sep, 2010 [facility] [place] [facility] [address] [id number] [place] [address] 31 Feb, 2010 [facility] [place] [facility] [address] [id number] [place] [address] 30 Feb, 2010 [facility] [place] [facility] [address] [id number] [place] [address] 21 Feb, 2010 [facility] [place] [facility] [address] [id number] [place] [address] 29 Dec, 2009 [facility] [place] [facility] [address] [id number], [place] [address] 19 Dec, 2009 [facility] [place] [facility] [address] [id number], [place] [address] 20 Oct, 2009 [facility] [place] [facility] [address] [id number] [place] [address] 15 Aug, 2009 [facility] [place] [facility] [address] [id number] [place] [address] 15 Feb, 2009 [facility] [place] [facility] [address] [id number] [place] [address] 15 Feb, 2009 [facility] [place] [facility] [address] [facility] [id number] [place] [address] Jan, [facility] [address] [facility] [id number], [place] [address] Jan, [facility] [address] [facility] [id number], [place] [address] Dec, [place] [address] [facility] [id number], [place] [address] Dec, [facility] [address] [facility] [id number], [place] [address] Nov, IMMUNIZATIONS No Known Immunizations SOCIAL HISTORY Never Assessed REASON FOR VISIT aleisha/Alina POSADA PLAN OF CARE Activity Details Follow Up 6 Weeks Reason: VITAL SIGNS Height 68 in 2017-02-10 Weight 197.4 lbs 2017-02-10 Heart Rate 88 bpm 2017-02-10 Respiratory Rate 18 2017-02-10 BMI 30.01 kg/m2 2017-02-10 Blood pressure systolic 112 mmHg 2017-02-10 Blood pressure diastolic 76 mmHg 2017-02-10 MEDICATIONS Medication Instructions Dosage Frequency Start Date End Date Duration Status Clozapine 100 MG 1 tablet 3 tabs in the AM and HS; Take 2 tabs at 3PM Active Oxybutynin Chloride 5 MG Orally Twice a day 1 tablet by Oral route 2 times per day 12h 31 Sep, 2012 Active Trazodone HCl 150 MG Orally for depression and sleep take 1.5 Tablet by Oral route 1 time per day [facility] Active Seroquel 100 MG Orally Once a day at bedtime 1 tablet Active Lipitor 20 mg 1 tablet by Oral route 1 time per day Sep, Active Docusate Sodium 100 mg take 1 capsule (100 mg) by oral route 2 times per day July, Active Protonix 40 mg 1 tablet by Oral route 1 time per day July, Active MiraLax 17 gram/dose 17 g by Oral route 1 time per day take daily Feb, Active Loratadine 10 mg 1 tablet by Oral route 1 time per day Apr, Active Keppra 500 mg take 1 tablet (500 mg) by oral route 2 times per day July, Active Haloperidol 2 MG 1 Tablet by Oral route 1 time per day Active Folic Acid 1 mg 0.5 tablet by Oral route 1 time per day Apr, Active Depakote ER 500 mg Orally 1 time per day 4 Tablet Active Benztropine Mesylate 1 MG Orally 3 times a day; AM, 3PM and HS 1 Tablet Active EPA 1000 MG Orally twice a day 1 capsule 12h Active Clonazepam 2 MG Orally for anxiety 1/2 tablet at 3pm and 1.5 tablets at HS 26 Oct, 2013 Active Metoprolol Succinate 25 mg 1 tablet by Oral route 1 time per day July, Active RESULTS No Results PROCEDURES Procedure Date Ordered Result Body Site COUNT INCLUDES THE [facility] VISIT ESTABLISHED PATIENT Feb 10, 2017 PSYTX COMPLEX INTERACTIVE Feb 10, 2017 INSTRUCTIONS MEDICATIONS ADMINISTERED No Known Medications MEDICAL (GENERAL) HISTORY Type Description Date Medical History High Blood Pressure Medical History Fainting/Seizures/Epilepsy Medical History Moderate MR Medical History GERD Medical History Hyperlipidemia Medical History Paranoid Schizophrenia Medical History incontenance Medical History 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
--- OUTSIDE RECORDS SUMMARY | 2018-09-29 17:56 | XMS REPORT | Continuity of Care Document ---
Author Organization Unknown Address Unknown Allergies Active Description Code Type Severity Reaction Onset Reported/Identified Relationship to Patient Clinical Status Yes Prozac Drug Allergy 09/26/2008 Yes Prozac Drug Allergy N/A N/A 09/26/2008 Yes fluoxetine [id number] Drug Allergy Unknown N/A 03/05/2017 Medications There [...] APRN V58.69 MEDICATION HIGH RISK 09/09/2007 HARRY YANG, CLAUS J V58.69 MEDICATION HIGH RISK 09/09/2007 HARRY JONESN, CLAUS J V58.69 MEDICATION HIGH RISK 09/09/2007 HRARY JONESN, CLAUS J V58.69 MEDICATION HIGH RISK 09/09/2007 CASANOVA DDS, MAIKEL V58.69 MEDICATION HIGH RISK 09/09/2007 HARRY JONESN, CLAUS J V58.69 MEDICATION HIGH RISK 09/09/2007 HARRY JONESN, CLAUS J V58.69 MEDICATION HIGH RISK 09/09/2007 HARRY JONESN, CLAUS J V58.69 MEDICATION HIGH RISK 09/21/2007 SHEA ZAMUDIO DO F 401.1 HYPERTENSION, BENIGN ESSENTIAL 09/21/2007 SHEA ZAMUDIO DO F 788.30 INCONTINENCE ENURESOS/URINARY 09/21/2007 MUOGHALU DDS, PALAK N 401.1 HYPERTENSION, BENIGN ESSENTIAL 09/21/2007 MUOGHALU DDS, PALAK N 788.30 INCONTINENCE ENURESOS/URINARY 09/21/2007 SHEA [...] ESSENTIAL 09/21/2007 788.30 INCONTINENCE ENURESOS/URINARY 09/21/2007 ROMAN METAL FABRICATOR WELDER, JOSSE S 401.1 HYPERTENSION, BENIGN ESSENTIAL 09/21/2007 ROMAN METAL FABRICATOR WELDER, JOSSE S 788.30 INCONTINENCE ENURESOS/URINARY 09/21/2007 KYLE WADDELL MD 401.1 HYPERTENSION, BENIGN ESSENTIAL 09/21/2007 KYLE WADDELL MD 788.30 INCONTINENCE ENURESOS/URINARY 09/21/2007 SINGH DO, MERT K 401.1 HYPERTENSION, BENIGN ESSENTIAL 09/21/2007 SINGH DO, MERT K 788.30 INCONTINENCE ENURESOS/URINARY 09/21/2007 JALEESA SERRATO JR 401.1 HYPERTENSION, BENIGN ESSENTIAL 09/21/2007 JALEESA SERRATO JR 788.30 INCONTINENCE ENURESOS/URINARY 09/21/2007 KYLE WADDELL MD 401.1 HYPERTENSION, BENIGN ESSENTIAL 09/21/2007 KYLE WADDELL MD 788.30 INCONTINENCE ENURESOS/URINARY 09/21/2007 JALEESA SERRATO JR 401.1 HYPERTENSION, BENIGN ESSENTIAL 09/21/2007 JALEESA SERRATO JR 788.30 INCONTINENCE ENURESOS/URINARY 09/21/2007 CLAUS MCDONALD APRN J 401.1 HYPERTENSION, BENIGN ESSENTIAL 09/21/2007 HARRY YANG CLAUS J 788.30 INCONTINENCE ENURESOS/URINARY 09/21/2007 MELONIE MCDONALD APRNINDA J 401.1 HYPERTENSION, BENIGN ESSENTIAL 09/21/2007 HARRY YANG CLAUS J 788.30 INCONTINENCE ENURESOS/URINARY 09/21/2007 MELONIE [...] J 401.1 HYPERTENSION, BENIGN ESSENTIAL 09/21/2007 HARRY METAL FABRICATOR WELDER, CLAUS J 788.30 INCONTINENCE ENURESOS/URINARY 09/21/2007 CASANOVA DDS, MAIKEL 401.1 HYPERTENSION, BENIGN ESSENTIAL 09/21/2007 CASANOVA DDS, MAIKEL 788.30 INCONTINENCE ENURESOS/URINARY 09/21/2007 HARRY METAL FABRICATOR WELDER, CLAUS J 401.1 HYPERTENSION, BENIGN ESSENTIAL 09/21/2007 HARRY METAL FABRICATOR WELDER, CLAUS J 788.30 INCONTINENCE ENURESOS/URINARY 09/21/2007 HARRY METAL FABRICATOR WELDER, CLAUS J 401.1 HYPERTENSION, BENIGN ESSENTIAL 09/21/2007 HARRY METAL FABRICATOR WELDER, CLAUS J 788.30 INCONTINENCE ENURESOS/URINARY 09/21/2007 HARRY METAL FABRICATOR WELDER, CLAUS J 401.1 HYPERTENSION, BENIGN ESSENTIAL 09/21/2007 HARRY METAL FABRICATOR WELDER, CLAUS J 788.30 INCONTINENCE ENURESOS/URINARY 11/04/2007 SHEA ZAMUDIO DO 295.60 SCHIZOPHRENIC DISORDERS RESIDUAL TYPE UNSPECIFIED STATE 11/04/2007 SHEA ZAMUDIO DO 299.00 AUTISTIC DISORDER CURRENT OR ACTIVE STATE 11/04/2007 SHEA ZAMUDIO DO 307.47 SI DYSSOMNIA NOS 11/04/2007 SHEA ZAMUDIO DO F 316 PF PSYCHIC FACTORS MED COND 11/04/2007 SHEA ZAMUDIO DO F 318.0 MODERATE MENTAL RETARDATION 11/04/2007 MUOGHALU DDS, PALAK N 295.60 SCHIZOPHRENIC DISORDERS RESIDUAL TYPE UNSPECIFIED STATE 11/04/2007 MUOGHALU DDS, PALAK N 299.00 AUTISTIC DISORDER CURRENT OR ACTIVE STATE 11/04/2007 MUOGHALU DDS, PALAK N 307.47 SI DYSSOMNIA NOS 11/04/2007 MUOGHALU DDS, PALAK N 316 PF PSYCHIC FACTORS MED COND 11/04/2007 MUOGHALU DDS, PALAK N 318.0 MODERATE MENTAL RETARDATION 11/04/2007 SHEA ZAMUDIO DO F 295.60 SCHIZOPHRENIC DISORDERS RESIDUAL TYPE UNSPECIFIED STATE 11/04/2007 SHEA ZAMUDIO DO F 299.00 AUTISTIC DISORDER CURRENT OR ACTIVE STATE 11/04/2007 SHEA ZAMUDIO DO F 307.47 SI DYSSOMNIA NOS 11/04/2007 SHEA ZAMUDIO DO 316 PF PSYCHIC FACTORS MED COND 11/04/2007 SHEA ZAMUDIO DO 318.0 MODERATE MENTAL RETARDATION 11/04/2007 JOSSE OWENS APRN S 295.60 SCHIZOPHRENIC DISORDERS RESIDUAL TYPE UNSPECIFIED STATE 11/04/2007 JOSSE OWENS APRN 299.00 AUTISTIC DISORDER CURRENT OR ACTIVE STATE 11/04/2007 JOSSE OWENS APRN 307.47 SI DYSSOMNIA NOS 11/04/2007 JOSSE OWENS [...] DISORDERS RESIDUAL TYPE UNSPECIFIED STATE 11/04/2007 ROMAN METAL FABRICATOR WELDER, JOSSE S 299.00 AUTISTIC DISORDER CURRENT OR ACTIVE STATE 11/04/2007 ROMAN METAL FABRICATOR WELDER, JOSSE S 307.47 SI DYSSOMNIA NOS 11/04/2007 FADY OWENS APRNNDA S 316 PF PSYCHIC FACTORS MED COND 11/04/2007 ROMAN YANG JOSSE S 318.0 MODERATE MENTAL RETARDATION 11/04/2007 KYLE WADDELL MD 295.60 SCHIZOPHRENIC DISORDERS RESIDUAL TYPE UNSPECIFIED STATE 11/04/2007 KYLE WADDELL MD 299.00 AUTISTIC DISORDER CURRENT OR ACTIVE STATE 11/04/2007 KYLE WADDELL MD 307.47 SI DYSSOMNIA NOS 11/04/2007 KYLE WADDELL MD 316 PF PSYCHIC FACTORS MED COND 11/04/2007 KYLE WADDELL MD 318.0 MODERATE MENTAL RETARDATION 11/04/2007 SAMANTHA DAMON MERT K 295.60 SCHIZOPHRENIC DISORDERS RESIDUAL TYPE UNSPECIFIED STATE 11/04/2007 SAMANTHA DAMON MERT K 299.00 AUTISTIC DISORDER CURRENT OR ACTIVE STATE 11/04/2007 CALI SINGH DOA K 307.47 SI DYSSOMNIA NOS 11/04/2007 SAMANTHA DAMON MERT K 316 PF PSYCHIC FACTORS MED [...] DISORDERS RESIDUAL TYPE UNSPECIFIED STATE 11/04/2007 HARRY YANG, CLAUS J 299.00 AUTISTIC DISORDER CURRENT OR ACTIVE STATE 11/04/2007 HARRY YANG, CLAUS J 307.47 SI DYSSOMNIA NOS 11/04/2007 HARRY JONESN, CLAUS J 316 PF PSYCHIC FACTORS MED COND 11/04/2007 HARRY JONESN, CLAUS J 318.0 MODERATE MENTAL RETARDATION 11/04/2007 HARRY YANG, CLAUS J 295.60 SCHIZOPHRENIC DISORDERS RESIDUAL TYPE UNSPECIFIED STATE 11/04/2007 HARRY JONESN, CLAUS J 299.00 AUTISTIC DISORDER CURRENT OR ACTIVE STATE 11/04/2007 HARRY JONESN, CLAUS J 307.47 SI DYSSOMNIA NOS 11/04/2007 HARRY JONESN, CLAUS J 316 PF PSYCHIC FACTORS MED COND 11/04/2007 HARRY JONESN, CLAUS J 318.0 MODERATE MENTAL RETARDATION 11/04/2007 HARRY JONESN, CLAUS J 295.60 SCHIZOPHRENIC DISORDERS RESIDUAL TYPE UNSPECIFIED STATE 11/04/2007 HARRY JONESN, CLAUS J 299.00 AUTISTIC DISORDER CURRENT OR ACTIVE STATE 11/04/2007 HARRY JONESN, CLAUS J 307.47 SI DYSSOMNIA NOS 11/04/2007 HARRY METAL FABRICATOR WELDER, CLAUS J 316 PF PSYCHIC FACTORS MED COND 11/04/2007 HARRY JONESN, CLAUS J 318.0 MODERATE MENTAL RETARDATION 11/04/2007 HARRY YANG, CLAUS J 295.60 SCHIZOPHRENIC DISORDERS RESIDUAL TYPE UNSPECIFIED STATE 11/04/2007 HARRY YANG, CLAUS J 299.00 AUTISTIC DISORDER CURRENT OR ACTIVE STATE 11/04/2007 HARRY YANG CLAUS J 307.47 SI DYSSOMNIA NOS 11/04/2007 MELONIE MCDONALD APRNINDA J 316 PF PSYCHIC FACTORS MED COND 11/04/2007 HARRY YANG, CLAUS J 318.0 MODERATE MENTAL RETARDATION 11/04/2007 [...] 316 PF PSYCHIC FACTORS MED COND 11/04/2007 MELONIE MCDONALD APRNINDA J 318.0 MODERATE MENTAL RETARDATION 11/04/2007 HARRY YANG CLAUS J 295.60 SCHIZOPHRENIC DISORDERS RESIDUAL TYPE UNSPECIFIED STATE 11/04/2007 HARRY YANG CLAUS J 299.00 AUTISTIC DISORDER CURRENT OR ACTIVE STATE 11/04/2007 HARRY YANG CLAUS J 307.47 SI DYSSOMNIA NOS 11/04/2007 HARRY YANG CLAUS J 316 PF PSYCHIC FACTORS MED COND 11/04/2007 HARRY YANG CLAUS J 318.0 MODERATE MENTAL RETARDATION 11/04/2007 CASANOVA DDSMAIKEL 295.60 SCHIZOPHRENIC DISORDERS RESIDUAL TYPE UNSPECIFIED STATE 11/04/2007 CASANOVA MAHNAZS MAIKEL 299.00 AUTISTIC DISORDER CURRENT OR ACTIVE STATE 11/04/2007 CASANOVA MAHNAZSMAIKEL 307.47 SI DYSSOMNIA NOS 11/04/2007 CASANOVA DDSMAIKEL 316 PF PSYCHIC FACTORS MED COND 11/04/2007 CASANOVA MAIKEL MATTA 318.0 MODERATE MENTAL RETARDATION 11/04/2007 HARRY YANG CLAUS J 295.60 SCHIZOPHRENIC DISORDERS RESIDUAL TYPE UNSPECIFIED STATE 11/04/2007 HARRY YANG CLAUS J 299.00 AUTISTIC DISORDER CURRENT OR ACTIVE STATE 11/04/2007 HARRY METAL FABRICATOR WELDER, CLAUS J 307.47 SI DYSSOMNIA NOS 11/04/2007 HARRY METAL FABRICATOR WELDER, CLAUS J 316 PF PSYCHIC FACTORS MED COND 11/04/2007 HARRY METAL FABRICATOR WELDER, CLAUS J 318.0 MODERATE MENTAL RETARDATION 11/04/2007 HARRY METAL FABRICATOR WELDER, CLAUS J 295.60 SCHIZOPHRENIC DISORDERS RESIDUAL TYPE UNSPECIFIED STATE 11/04/2007 HARRY METAL FABRICATOR WELDER, CLAUS J 299.00 AUTISTIC DISORDER CURRENT OR ACTIVE STATE 11/04/2007 HARRY METAL FABRICATOR WELDER, CLAUS J 307.47 SI DYSSOMNIA NOS 11/04/2007 HARRY METAL FABRICATOR WELDER, CLAUS J 316 PF PSYCHIC FACTORS MED COND 11/04/2007 HARRY METAL FABRICATOR WELDER, CLAUS J 318.0 MODERATE MENTAL RETARDATION 11/04/2007 HARRY METAL FABRICATOR WELDER, CLAUS J 295.60 SCHIZOPHRENIC DISORDERS RESIDUAL TYPE UNSPECIFIED STATE 11/04/2007 HARRY METAL FABRICATOR WELDER, CLAUS J 299.00 AUTISTIC DISORDER CURRENT OR ACTIVE STATE 11/04/2007 HARRY METAL FABRICATOR WELDER, CLAUS J 307.47 SI DYSSOMNIA NOS 11/04/2007 HARRY METAL FABRICATOR WELDER, CLAUS J 316 PF PSYCHIC FACTORS MED COND 11/04/2007 HARRY METAL FABRICATOR WELDER, CLAUS J 318.0 MODERATE MENTAL RETARDATION 11/19/2007 SHEA ZAMUDIO DO 564.00 CONSTIPATION CHRONIC 11/19/2007 PALAK BARON DDS 564.00 CONSTIPATION CHRONIC 11/19/2007 SHEA ZAMUDIO DO [...] 564.00 CONSTIPATION CHRONIC 11/19/2007 JALEESA SERRATO JR S 564.00 CONSTIPATION CHRONIC 11/19/2007 HARRY METAL FABRICATOR WELDER, CLAUS J 564.00 CONSTIPATION CHRONIC 11/19/2007 HARRY METAL FABRICATOR WELDER, CLAUS J 564.00 CONSTIPATION CHRONIC 11/19/2007 HARRY METAL FABRICATOR WELDER, CLAUS J 564.00 CONSTIPATION CHRONIC 11/19/2007 HARRY METAL FABRICATOR WELDER, CLAUS J 564.00 CONSTIPATION CHRONIC 11/19/2007 HARRY METAL FABRICATOR WELDER, CLAUS J 564.00 CONSTIPATION CHRONIC 11/19/2007 HARRY METAL FABRICATOR WELDER, CLAUS J 564.00 CONSTIPATION CHRONIC 11/19/2007 HARRY METAL FABRICATOR WELDER, CLAUS J 564.00 CONSTIPATION CHRONIC 11/19/2007 MAIKEL CASANOVA DDS 564.00 CONSTIPATION CHRONIC 11/19/2007 HARRY YANG, CLAUS J 564.00 CONSTIPATION CHRONIC 11/19/2007 HARRY YANG, CLAUS J 564.00 CONSTIPATION CHRONIC 11/19/2007 HARRY YANG, CLAUS J 564.00 CONSTIPATION CHRONIC 11/29/2007 SHEA ZAMUDIO DO F 786.2 COUGH 11/29/2007 SHEA ZAMUDIO DO F 789.00 ABDOMINAL PAIN UNSPECIFIED SITE 11/29/2007 PALAK BARON DDS N 786.2 COUGH 11/29/2007 PALAK BARON DDS N 789.00 ABDOMINAL PAIN UNSPECIFIED SITE 11/29/2007 [...] 11/29/2007 789.00 ABDOMINAL PAIN UNSPECIFIED SITE 11/29/2007 ROMAN YANG JOSSE S 786.2 cough 11/29/2007 ROMAN YANG JOSSE S 789.00 ABDOMINAL PAIN UNSPECIFIED SITE 11/29/2007 KYLE WADDELL MD 786.2 cough 11/29/2007 KYLE WADDELL MD 789.00 ABDOMINAL PAIN UNSPECIFIED SITE 11/29/2007 SINGH DO, MERT K 786.2 cough 11/29/2007 SINGH DO, MERT K 789.00 ABDOMINAL PAIN UNSPECIFIED SITE 11/29/2007 JALEESA SERRATO JR 786.2 cough 11/29/2007 JALEESA SERRATO JR 789.00 ABDOMINAL PAIN UNSPECIFIED SITE 11/29/2007 KYLE WADDELL MD 786.2 cough 11/29/2007 KYLE WADDELL MD 789.00 ABDOMINAL PAIN UNSPECIFIED SITE 11/29/2007 JALEESA SERRATO JR S 786.2 cough 11/29/2007 JALEESA SERRATO JR 789.00 ABDOMINAL PAIN UNSPECIFIED SITE 11/29/2007 HARRY METAL FABRICATOR WELDER, CLAUS J 786.2 cough 11/29/2007 HARRY METAL FABRICATOR WELDER, CLAUS J 789.00 ABDOMINAL PAIN UNSPECIFIED SITE 11/29/2007 HARRY METAL FABRICATOR WELDER, CLAUS J 786.2 cough 11/29/2007 HARRY METAL FABRICATOR WELDER, CLAUS J 789.00 ABDOMINAL PAIN UNSPECIFIED SITE 11/29/2007 HARRY METAL FABRICATOR WELDER, CLAUS J 786.2 cough 11/29/2007 HARRY METAL FABRICATOR WELDER, CLAUS J 789.00 ABDOMINAL PAIN UNSPECIFIED SITE 11/29/2007 HARRY METAL FABRICATOR WELDER, CLAUS J 786.2 cough 11/29/2007 HARRY METAL FABRICATOR WELDER, CLAUS J 789.00 ABDOMINAL PAIN UNSPECIFIED SITE 11/29/2007 HARRY METAL FABRICATOR WELDER, CLAUS J 786.2 cough 11/29/2007 HARRY METAL FABRICATOR WELDER, CLAUS J 789.00 ABDOMINAL PAIN UNSPECIFIED SITE 11/29/2007 HARRY METAL FABRICATOR WELDER, CLAUS J 786.2 cough 11/29/2007 HARRY METAL FABRICATOR WELDER, CLAUS J 789.00 ABDOMINAL PAIN UNSPECIFIED SITE 11/29/2007 HARRY METAL FABRICATOR WELDER, CLAUS J 786.2 cough 11/29/2007 HARRY METAL FABRICATOR WELDER, CLAUS J 789.00 ABDOMINAL PAIN UNSPECIFIED SITE 11/29/2007 CASANOVA DDS, MAIKEL 786.2 cough 11/29/2007 CASANOVA DDS, MAIKEL 789.00 ABDOMINAL PAIN UNSPECIFIED SITE 11/29/2007 HARRY METAL FABRICATOR WELDER, CLAUS J 786.2 cough 11/29/2007 HARRY METAL FABRICATOR WELDER, CLAUS J 789.00 ABDOMINAL PAIN UNSPECIFIED SITE 11/29/2007 HARRY METAL FABRICATOR WELDER, CLAUS J 786.2 cough 11/29/2007 HARRY METAL FABRICATOR WELDER, CLAUS J 789.00 ABDOMINAL PAIN UNSPECIFIED SITE 11/29/2007 HARRY METAL FABRICATOR WELDER, CLAUS J 786.2 cough 11/29/2007 HARRY METAL FABRICATOR WELDER, CLAUS J 789.00 ABDOMINAL PAIN UNSPECIFIED SITE 05/24/2008 SHEA ZAMUDIO DO 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 05/24/2008 PALAK BARON DDS 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 05/24/2008 SHEA ZAMUDIO DO 295.30 PARANOID TYPE [...] PARANOID TYPE SCHIZOPHRENIA UNSPECIFIED STATE 05/24/2008 HARRY METAL FABRICATOR WELDER, CLAUS J 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 05/24/2008 HARRY METAL FABRICATOR WELDER, CLAUS J 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 05/24/2008 HARRY METAL FABRICATOR WELDER, CLAUS J 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 05/24/2008 HARRY METAL FABRICATOR WELDER, CLAUS J 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 05/24/2008 HARRY METAL FABRICATOR WELDER, CLAUS J 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 05/24/2008 HARRY METAL FABRICATOR WELDER, CLAUS J 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 05/24/2008 HARRY METAL FABRICATOR WELDER, CLAUS J 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 05/24/2008 MAIKEL CASANOVA DDS 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 05/24/2008 HARRY METAL FABRICATOR WELDER, CLAUS J 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 05/24/2008 HARRY METAL FABRICATOR WELDER, CLAUS J 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 05/24/2008 HARRY METAL FABRICATOR WELDER, CLAUS J 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 09/15/2008 SHEA ZAMUDIO DO F 312.30 I [...] I IMPULSE CONTROL DISORDER NOS 09/15/2008 HARRY METAL FABRICATOR WELDER, CLAUS J 312.30 I IMPULSE CONTROL DISORDER NOS 09/15/2008 HARRY METAL FABRICATOR WELDER, CLAUS J 312.30 I IMPULSE CONTROL DISORDER NOS 09/15/2008 HARRY METAL FABRICATOR WELDER, CLAUS J 312.30 I IMPULSE CONTROL DISORDER NOS 09/15/2008 HARRY METAL FABRICATOR WELDER, CLAUS J 312.30 I IMPULSE CONTROL DISORDER NOS 09/15/2008 HARRY METAL FABRICATOR WELDER, CLAUS J 312.30 I IMPULSE CONTROL DISORDER NOS 09/15/2008 HARRY METAL FABRICATOR WELDER, CLAUS J 312.30 I IMPULSE CONTROL DISORDER NOS 09/15/2008 HARRY METAL FABRICATOR WELDER, CLAUS J 312.30 I IMPULSE CONTROL DISORDER NOS 09/15/2008 MAIKEL CASANOVA DDS 312.30 I IMPULSE CONTROL DISORDER NOS 09/15/2008 HARRY METAL FABRICATOR WELDER, CLAUS J 312.30 I IMPULSE CONTROL DISORDER NOS 09/15/2008 HARRY METAL FABRICATOR WELDER, CLAUS J 312.30 I IMPULSE CONTROL DISORDER NOS 09/15/2008 HARRY METAL FABRICATOR WELDER, CLAUS J 312.30 I IMPULSE CONTROL DISORDER [...] S 295.10 P SCHIZO DISORG UNSPECIFIED 11/07/2008 BAIRON UNDERWOOD, KYLE 295.10 P SCHIZO DISORG UNSPECIFIED 11/07/2008 JALEESA SERRATO JR S 295.10 P SCHIZO DISORG UNSPECIFIED 11/07/2008 HARRY METAL FABRICATOR WELDER, CLAUS J 295.10 P SCHIZO DISORG UNSPECIFIED 11/07/2008 HARRY METAL FABRICATOR WELDER, CLAUS J 295.10 P SCHIZO DISORG UNSPECIFIED 11/07/2008 HARRY METAL FABRICATOR WELDER, CLAUS J 295.10 P SCHIZO DISORG UNSPECIFIED 11/07/2008 HARRY METAL FABRICATOR WELDER, CLAUS J 295.10 P SCHIZO DISORG UNSPECIFIED 11/07/2008 HARRY METAL FABRICATOR WELDER, CLAUS J 295.10 P SCHIZO DISORG UNSPECIFIED 11/07/2008 HARRY METAL FABRICATOR WELDER, CLAUS J 295.10 P SCHIZO DISORG UNSPECIFIED 11/07/2008 HARRY METAL FABRICATOR WELDER, CLAUS J 295.10 P SCHIZO DISORG UNSPECIFIED 11/07/2008 MAIKEL CASANOVA DDS 295.10 P SCHIZO DISORG UNSPECIFIED 11/07/2008 HARRY METAL FABRICATOR WELDER, CLAUS J 295.10 P SCHIZO DISORG UNSPECIFIED 11/07/2008 HARRY METAL FABRICATOR WELDER, CLAUS J 295.10 P SCHIZO DISORG UNSPECIFIED 11/07/2008 HARRY METAL FABRICATOR WELDER, CLAUS J 295.10 P SCHIZO DISORG UNSPECIFIED 01/04/2009 SHEA ZAMUDIO DO F 466.0 ACUTE BRONCHITIS 01/04/2009 TOD MATTA, PALAK Balbuena 466.0 ACUTE BRONCHITIS 01/04/2009 SHEA ZAMUDIO DO F 466.0 ACUTE BRONCHITIS 01/04/2009 JOSSE OWENS APRN 466.0 ACUTE BRONCHITIS 01/04/2009 466.0 ACUTE BRONCHITIS 01/04/2009 466.0 ACUTE BRONCHITIS 01/04/2009 466.0 ACUTE BRONCHITIS 01/04/2009 466.0 ACUTE BRONCHITIS 01/04/2009 466.0 ACUTE BRONCHITIS 01/04/2009 466.0 ACUTE BRONCHITIS 01/04/2009 ROMAN METAL FABRICATOR WELDER, JOSSE S 466.0 ACUTE BRONCHITIS 01/04/2009 KYLE WADDELL MD 466.0 ACUTE BRONCHITIS 01/04/2009 SINGH DO, MERT K 466.0 ACUTE BRONCHITIS 01/04/2009 AMA COYLE, JALEESA S 466.0 ACUTE BRONCHITIS 01/04/2009 KYLE WADDLEL MD 466.0 ACUTE BRONCHITIS 01/04/2009 AMA COYLE, JALEESA S 466.0 ACUTE BRONCHITIS 01/04/2009 HARRY METAL FABRICATOR WELDER, CLAUS J 466.0 ACUTE BRONCHITIS 01/04/2009 HARRY METAL FABRICATOR WELDER, CLAUS J 466.0 ACUTE BRONCHITIS 01/04/2009 HARRY METAL FABRICATOR WELDER, CLAUS J 466.0 ACUTE BRONCHITIS 01/04/2009 HARRY METAL FABRICATOR WELDER, CLAUS J 466.0 ACUTE BRONCHITIS 01/04/2009 HARRY METAL FABRICATOR WELDER, CLAUS J 466.0 ACUTE BRONCHITIS 01/04/2009 HARRY METAL FABRICATOR WELDER, CLAUS J 466.0 ACUTE BRONCHITIS 01/04/2009 HARRY METAL FABRICATOR WELDER, CLAUS J 466.0 ACUTE BRONCHITIS 01/04/2009 MAIKEL CASANOVA DDS 466.0 ACUTE BRONCHITIS 01/04/2009 HARRY METAL FABRICATOR WELDER, CLAUS J 466.0 ACUTE BRONCHITIS 01/04/2009 HARRY METAL FABRICATOR WELDER, CLAUS J 466.0 ACUTE BRONCHITIS 01/04/2009 HARRY METAL FABRICATOR WELDER, CLAUS J 466.0 ACUTE BRONCHITIS 01/15/2009 SHEA ZAMUDIO DO F 995.20 UNSPECIFIED ADVERSE EFFECT OF UNSPECIFIED DRUG, MEDICINAL AND BIOLOGICAL SUBSTANCE, NOT ELSEWHERE CLASSIFIED 01/15/2009 SHEA ZAMUDIO DO F E939.9 UNSPECIFIED PSYCHOTROPIC AGENTS CAUSING ADVERSE EFFECTS IN THERAPEUTIC USE 01/15/2009 TOD JOYAS, PALAK N 995.20 UNSPECIFIED ADVERSE EFFECT OF UNSPECIFIED DRUG, MEDICINAL AND BIOLOGICAL SUBSTANCE, NOT ELSEWHERE CLASSIFIED 01/15/2009 ANGELAHALU DDS, PALAK N E939.9 UNSPECIFIED PSYCHOTROPIC AGENTS CAUSING ADVERSE EFFECTS IN THERAPEUTIC USE 01/15/2009 SHEA ZAMUDIO DO F 995.20 UNSPECIFIED ADVERSE EFFECT OF UNSPECIFIED DRUG, MEDICINAL AND BIOLOGICAL SUBSTANCE, NOT ELSEWHERE CLASSIFIED 01/15/2009 SHEA ZAMUDIO DO F E939.9 UNSPECIFIED PSYCHOTROPIC AGENTS CAUSING ADVERSE EFFECTS IN THERAPEUTIC USE 01/15/2009 ROMAN YANG, JOSSE S 995.20 UNSPECIFIED ADVERSE EFFECT OF UNSPECIFIED [...] IN THERAPEUTIC USE 01/15/2009 JOSSE OWENS APRN 995.20 UNSPECIFIED ADVERSE EFFECT OF UNSPECIFIED [...] BIOLOGICAL SUBSTANCE, NOT ELSEWHERE CLASSIFIED 01/15/2009 JALEESA SERARTO JR E939.9 UNSPECIFIED PSYCHOTROPIC AGENTS CAUSING ADVERSE [...] IN THERAPEUTIC USE 01/15/2009 ARYAN MCDONALD APRNA Katerine 995.20 UNSPECIFIED ADVERSE EFFECT OF UNSPECIFIED DRUG, [...] CAUSING ADVERSE EFFECTS IN THERAPEUTIC USE 01/15/2009 ARAYN MCDONALD APRNA J 995.20 UNSPECIFIED ADVERSE EFFECT [...] JOSSE OWENS APRN S 784.0 HEADACHE 07/05/2009 JOSSE OWENS APRN S V01.9 CONTACT WITH OR EXPOSURE TO [...] JOSSE OWENS APRN S 784.0 HEADACHE 07/05/2009 JOSSE OWENS APRN S V01.9 CONTACT WITH OR EXPOSURE TO UNSPECIFIED COMMUNICABLE DISEASE 07/05/2009 KYLE WADDELL MD 784.0 HEADACHE 07/05/2009 KYLE WADDELL MD V01.9 CONTACT WITH OR EXPOSURE TO UNSPECIFIED COMMUNICABLE DISEASE 07/05/2009 SINGH DO, MERT K 784.0 HEADACHE 07/05/2009 SINGH DO, MERT K V01.9 CONTACT WITH OR EXPOSURE [...] UNSPECIFIED COMMUNICABLE DISEASE 07/05/2009 CLAUS MCDONALD APRN J 784.0 HEADACHE 07/05/2009 CLAUS MCDONALD APRN J V01.9 CONTACT WITH OR EXPOSURE TO UNSPECIFIED COMMUNICABLE DISEASE 07/05/2009 HARRY METAL FABRICATOR WELDER, CLAUS J 784.0 HEADACHE 07/05/2009 HARRY METAL FABRICATOR WELDER, CLAUS J V01.9 CONTACT WITH OR EXPOSURE TO UNSPECIFIED COMMUNICABLE DISEASE 07/05/2009 HARRY METAL FABRICATOR WELDER, CLAUS J 784.0 HEADACHE 07/05/2009 HARRY METAL FABRICATOR WELDER, CLAUS J V01.9 CONTACT WITH OR EXPOSURE TO UNSPECIFIED COMMUNICABLE DISEASE 07/05/2009 HARRY METAL FABRICATOR WELDER, CLAUS J 784.0 HEADACHE 07/05/2009 HARRY METAL FABRICATOR WELDER, CLAUS J V01.9 CONTACT WITH OR EXPOSURE TO UNSPECIFIED COMMUNICABLE DISEASE 07/05/2009 HARRY METAL FABRICATOR WELDER, CLAUS J 784.0 HEADACHE 07/05/2009 HARRY METAL FABRICATOR WELDER, CLAUS J V01.9 CONTACT WITH OR EXPOSURE TO UNSPECIFIED COMMUNICABLE DISEASE 07/05/2009 HARRY METAL FABRICATOR WELDER, CLAUS J 784.0 HEADACHE 07/05/2009 HARRY JONESN, [...] SHEA ZAMUDIO DO F 285.9 ANEMIA 08/21/2009 PALAK BARON DDS 285.9 ANEMIA 08/21/2009 SHEA ZAMUDIO DO F 285.9 ANEMIA 08/21/2009 JSOSE OWENS APRN 285.9 ANEMIA 08/21/2009 285.9 ANEMIA 08/21/2009 285.9 ANEMIA 08/21/2009 285.9 ANEMIA 08/21/2009 285.9 ANEMIA 08/21/2009 285.9 ANEMIA 08/21/2009 285.9 ANEMIA 08/21/2009 JOSSE OWENS APRN 285.9 ANEMIA 08/21/2009 KYLE WADDELL MD 285.9 ANEMIA 08/21/2009 MERT SINGH DO 285.9 ANEMIA 08/21/2009 JALEESA SERRATO JR 285.9 ANEMIA 08/21/2009 KYLE WADDELL MD 285.9 ANEMIA 08/21/2009 JALEESA SERRATO JR 285.9 ANEMIA 08/21/2009 HARRY METAL FABRICATOR WELDER, CLAUS J 285.9 ANEMIA 08/21/2009 HARRY METAL FABRICATOR WELDER, CLAUS J 285.9 ANEMIA 08/21/2009 HARRY METAL FABRICATOR WELDER, CLAUS J 285.9 ANEMIA 08/21/2009 HARRY METAL FABRICATOR WELDER, CLAUS J 285.9 ANEMIA 08/21/2009 HARRY METAL FABRICATOR WELDER, CLAUS J 285.9 ANEMIA 08/21/2009 HARRY METAL FABRICATOR WELDER, CLAUS J 285.9 ANEMIA 08/21/2009 HARRY METAL FABRICATOR WELDER, CLAUS J 285.9 ANEMIA 08/21/2009 MAIKEL CASANOVA DDS 285.9 ANEMIA 08/21/2009 HARRY METAL FABRICATOR WELDER, CLAUS J 285.9 ANEMIA 08/21/2009 HARRY METAL FABRICATOR WELDER, CLAUS J 285.9 ANEMIA 08/21/2009 HARRY METAL FABRICATOR WELDER, CLAUS J 285.9 ANEMIA 10/26/2009 SHEA ZAMUDIO DO V74.1 SCREENING EXAMINATION FOR PULMONARY TUBERCULOSIS 10/26/2009 PALAK BARON DDS V74.1 SCREENING EXAMINATION FOR PULMONARY TUBERCULOSIS [...] DISORDER UNSPECIFIED STATE 05/02/2010 SHEA ZAMUDIO DO F 295.40 SCHIZOPHRENIFORM DISORDER UNSPECIFIED STATE 05/02/2010 JOSSE [...] MD 295.40 SCHIZOPHRENIFORM DISORDER UNSPECIFIED STATE 05/02/2010 MERT SINGH DO 295.40 SCHIZOPHRENIFORM DISORDER UNSPECIFIED STATE 05/02/2010 JALEESA SERRATO JR 295.40 SCHIZOPHRENIFORM DISORDER UNSPECIFIED STATE 05/02/2010 KYLE WADDELL MD 295.40 SCHIZOPHRENIFORM DISORDER UNSPECIFIED STATE 05/02/2010 JALEESA SERRATO JR 295.40 SCHIZOPHRENIFORM DISORDER UNSPECIFIED STATE 05/02/2010 HARRY METAL FABRICATOR WELDER, CLAUS J 295.40 SCHIZOPHRENIFORM DISORDER UNSPECIFIED STATE 05/02/2010 HARRY METAL FABRICATOR WELDER, CLAUS J 295.40 SCHIZOPHRENIFORM DISORDER UNSPECIFIED STATE 05/02/2010 HARRY METAL FABRICATOR WELDER, CLAUS J 295.40 SCHIZOPHRENIFORM DISORDER UNSPECIFIED STATE 05/02/2010 HARRY JONESN, CLAUS J 295.40 SCHIZOPHRENIFORM DISORDER UNSPECIFIED STATE 05/02/2010 HARRY JONESN, CLAUS J 295.40 SCHIZOPHRENIFORM DISORDER UNSPECIFIED STATE 05/02/2010 HARRY METAL FABRICATOR WELDER, CLAUS J 295.40 SCHIZOPHRENIFORM DISORDER UNSPECIFIED STATE 05/02/2010 HARRY METAL FABRICATOR WELDER, CLAUS J 295.40 SCHIZOPHRENIFORM DISORDER UNSPECIFIED STATE 05/02/2010 MAIKEL CASANOVA DDS 295.40 SCHIZOPHRENIFORM DISORDER UNSPECIFIED STATE 05/02/2010 HARRY METAL FABRICATOR WELDER, CLAUS J 295.40 SCHIZOPHRENIFORM DISORDER UNSPECIFIED STATE 05/02/2010 HARRY METAL FABRICATOR WELDER, CLAUS J 295.40 SCHIZOPHRENIFORM DISORDER UNSPECIFIED STATE 05/02/2010 HARRY METAL FABRICATOR WELDER, CLAUS J 295.40 SCHIZOPHRENIFORM DISORDER UNSPECIFIED STATE 11/26/2010 SHEA ZAMUDIO DO F 786.52 PAINFUL RESPIRATION 11/26/2010 PALAK BARON DDS 786.52 PAINFUL RESPIRATION 11/26/2010 SHEA ZAMUDIO DO F 786.52 PAINFUL RESPIRATION 11/26/2010 JOSSE OWENS APRN 786.52 PAINFUL RESPIRATION 11/26/2010 786.52 PAINFUL RESPIRATION 11/26/2010 786.52 PAINFUL RESPIRATION 11/26/2010 786.52 PAINFUL RESPIRATION 11/26/2010 786.52 PAINFUL RESPIRATION 11/26/2010 786.52 PAINFUL RESPIRATION 11/26/2010 786.52 PAINFUL RESPIRATION 11/26/2010 JOSSE OWENS APRN 786.52 PAINFUL RESPIRATION 11/26/2010 KYLE WADDELL MD 786.52 PAINFUL RESPIRATION 11/26/2010 SAMANTHA MERT DAMON Dillon 786.52 PAINFUL RESPIRATION 11/26/2010 JALEESA SERRATO JR S 786.52 PAINFUL RESPIRATION 11/26/2010 KYLE WADDELL MD 786.52 PAINFUL RESPIRATION 11/26/2010 JALEESA SERRATO JR S 786.52 PAINFUL RESPIRATION 11/26/2010 HARRY METAL FABRICATOR WELDER, CLAUS J 786.52 PAINFUL RESPIRATION 11/26/2010 HARRY METAL FABRICATOR WELDER, CLAUS J 786.52 PAINFUL RESPIRATION 11/26/2010 HARRY METAL FABRICATOR WELDER, CLAUS J 786.52 PAINFUL RESPIRATION 11/26/2010 HARRY METAL FABRICATOR WELDER, CLAUS J 786.52 PAINFUL RESPIRATION 11/26/2010 HARRY METAL FABRICATOR WELDER, CLAUS J 786.52 PAINFUL RESPIRATION 11/26/2010 HARRY METAL FABRICATOR WELDER, CLAUS J 786.52 PAINFUL RESPIRATION 11/26/2010 HARRY METAL FABRICATOR WELDER, CLAUS J 786.52 PAINFUL RESPIRATION 11/26/2010 MAIKEL CASANOVA DDS 786.52 PAINFUL RESPIRATION 11/26/2010 HARRY METAL FABRICATOR WELDER, CLAUS J 786.52 PAINFUL RESPIRATION 11/26/2010 HARRY METAL FABRICATOR WELDER, CLAUS J 786.52 PAINFUL RESPIRATION 11/26/2010 HARRY METAL FABRICATOR WELDER, CLAUS J 786.52 PAINFUL RESPIRATION 03/13/2011 SHEA ZAMUDIO DO 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 03/13/2011 SHEA ZAMUDIO DO 317 MENTAL RETARDATION-MILD 03/13/2011 MUOGHALU MAHNAZS, PALAK N 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 03/13/2011 MUOGHALU DDS, PALAK N 317 MENTAL RETARDATION-MILD 03/13/2011 SHEA ZAMUDIO DO F 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 03/13/2011 SHEA ZAMUDIO DO F 317 MENTAL RETARDATION-MILD 03/13/2011 JOSSE OWENS APRN S 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 03/13/2011 JOSSE OWENS APRN 317 MENTAL RETARDATION-MILD 03/13/2011 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 03/13/2011 317 MENTAL RETARDATION- MILD 03/13/2011 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 03/13/2011 317 MENTAL RETARDATION- MILD 03/13/2011 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 03/13/2011 317 MENTAL RETARDATION- MILD 03/13/2011 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 03/13/2011 317 MENTAL RETARDATION- MILD 03/13/2011 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 03/13/2011 317 MENTAL RETARDATION- MILD 03/13/2011 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 03/13/2011 317 MENTAL RETARDATION- MILD 03/13/2011 JOSSE OWENS APRN S 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 03/13/2011 SALBADOR OWENS APRNA S 317 MENTAL RETARDATION-MILD 03/13/2011 KYLE WADDELL MD 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 03/13/2011 KYLE WADDELL MD 317 MENTAL RETARDATION-MILD 03/13/2011 SINGH DOCALIA K 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 03/13/2011 SINGH DOMERT K 317 MENTAL RETARDATION-MILD 03/13/2011 JALEESA SERRATO JR 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 03/13/2011 JALEESA SERRATO JR 317 MENTAL RETARDATION-MILD 03/13/2011 KYLE WADDELL MD 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 03/13/2011 KYLE WADDELL MD 317 MENTAL RETARDATION-MILD 03/13/2011 JALEESA SERRATO JR S 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 03/13/2011 JALEESA SERRATO JR S 317 MENTAL RETARDATION-MILD 03/13/2011 CLAUS MCDONALD APRN J 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 03/13/2011 HARRY YANG CLAUS J 317 MENTAL RETARDATION-MILD 03/13/2011 HARRY YANG CLAUS J 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 03/13/2011 MELONIE MCDONALD APRNINDA J 317 MENTAL RETARDATION-MILD 03/13/2011 ARYAN MCDONALD APRNA J 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 03/13/2011 HARRY YANG CLAUS J 317 MENTAL RETARDATION-MILD 03/13/2011 HARRY YANG CLAUS J 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 03/13/2011 ARYAN MCDONALD APRNA J 317 MENTAL RETARDATION-MILD 03/13/2011 HARRY METAL FABRICATOR WELDER, CLAUS J 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 03/13/2011 HARRY METAL FABRICATOR WELDER, CLAUS J 317 MENTAL RETARDATION-MILD 03/13/2011 HARRY METAL FABRICATOR WELDER, CLAUS J 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 03/13/2011 HARRY METAL FABRICATOR WELDER, CLAUS J 317 MENTAL RETARDATION-MILD 03/13/2011 HARRY METAL FABRICATOR WELDER, CLAUS J 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 03/13/2011 HARRY METAL FABRICATOR WELDER, CLAUS J 317 MENTAL RETARDATION-MILD 03/13/2011 CASANOVA DDS, MAIKEL 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 03/13/2011 CASANOVA DDS, MAIKEL 317 MENTAL RETARDATION-MILD 03/13/2011 HARRY METAL FABRICATOR WELDER, CLAUS J 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 03/13/2011 HARRY METAL FABRICATOR WELDER, CLAUS J 317 MENTAL RETARDATION-MILD 03/13/2011 HARRY METAL FABRICATOR WELDER, CLAUS J 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 03/13/2011 HARRY METAL FABRICATOR WELDER, CLAUS J 317 MENTAL RETARDATION-MILD 03/13/2011 HARRY METAL FABRICATOR WELDER, CLAUS J 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 03/13/2011 HARRY METAL FABRICATOR WELDER, CLAUS J 317 MENTAL RETARDATION-MILD 05/01/2011 SHEA [...] V70.0 EXAM - ROUTINE H&P 05/01/2011 HARRY METAL FABRICATOR WELDER, CLAUS J V70.0 EXAM - ROUTINE H&P 05/01/2011 HARRY METAL FABRICATOR WELDER, CLAUS J V70.0 EXAM - ROUTINE H&P 05/01/2011 HARRY METAL FABRICATOR WELDER, CLAUS J V70.0 EXAM - ROUTINE H&P 05/01/2011 HARRY METAL FABRICATOR WELDER, CLAUS J V70.0 EXAM - ROUTINE H&P 05/01/2011 HARRY METAL FABRICATOR WELDER, CLAUS J V70.0 EXAM - ROUTINE H&P [...] SHEA ZAMUDIO DO 780.39 SEIZURES OTHER 10/07/2011 PALAK BARON DDS 780.39 SEIZURES OTHER 10/07/2011 SHEA ZAMUDIO DO 780.39 SEIZURES OTHER 10/07/2011 JOSSE OWENS APRN 780.39 SEIZURES OTHER 10/07/2011 780.39 SEIZURES OTHER 10/07/2011 780.39 SEIZURES OTHER 10/07/2011 780.39 SEIZURES OTHER 10/07/2011 780.39 SEIZURES OTHER 10/07/2011 780.39 SEIZURES OTHER 10/07/2011 780.39 SEIZURES OTHER 10/07/2011 ROMAN METAL FABRICATOR WELDER, JOSSE S 780.39 SEIZURES OTHER 10/07/2011 KYLE WADDELL MD 780.39 SEIZURES OTHER 10/07/2011 MERT SINGH DO 780.39 SEIZURES OTHER 10/07/2011 JALEESA SERRATO JR 780.39 SEIZURES OTHER 10/07/2011 KYLE WADDELL MD 780.39 SEIZURES OTHER 10/07/2011 JALEESA SERRATO JR 780.39 SEIZURES OTHER 10/07/2011 HARRY METAL FABRICATOR WELDER, CLAUS J 780.39 SEIZURES OTHER 10/07/2011 HARRY METAL FABRICATOR WELDER, CLAUS J 780.39 SEIZURES OTHER 10/07/2011 HARRY METAL FABRICATOR WELDER, CLAUS J 780.39 SEIZURES OTHER 10/07/2011 HARRY METAL FABRICATOR WELDER, CLAUS J 780.39 SEIZURES OTHER 10/07/2011 HARRY METAL FABRICATOR WELDER, CLAUS J 780.39 SEIZURES OTHER 10/07/2011 HARRY METAL FABRICATOR WELDER, CLAUS J 780.39 SEIZURES OTHER 10/07/2011 HARRY METAL FABRICATOR WELDER, CLAUS J 780.39 SEIZURES OTHER 10/07/2011 MAIKEL CASANOVA DDS 780.39 SEIZURES OTHER 10/07/2011 HARRY METAL FABRICATOR WELDER, CLAUS J 780.39 SEIZURES OTHER 10/07/2011 HARRY METAL FABRICATOR WELDER, CLAUS J 780.39 SEIZURES OTHER 10/07/2011 HARRY METAL FABRICATOR WELDER, CLAUS J 780.39 SEIZURES OTHER 07/21/2012 522.5 [...] JR 522.5 PERIAPICAL ABSCESS WITHOUT SINUS 07/21/2012 ARYAN MCDONALD APRNA J 522.5 PERIAPICAL ABSCESS WITHOUT SINUS 07/21/2012 HARRY YANG CLAUS J 522.5 PERIAPICAL ABSCESS WITHOUT SINUS 07/21/2012 HARRY METAL FABRICATOR WELDER, CLAUS J 522.5 PERIAPICAL ABSCESS WITHOUT SINUS 07/21/2012 HARRY METAL FABRICATOR WELDER, CLAUS J 522.5 PERIAPICAL ABSCESS WITHOUT SINUS 07/21/2012 HARRY METAL FABRICATOR WELDER, CLAUS J 522.5 PERIAPICAL ABSCESS WITHOUT SINUS 07/21/2012 HARRY METAL FABRICATOR WELDER, CLAUS J 522.5 PERIAPICAL ABSCESS WITHOUT SINUS 07/21/2012 HARRY METAL FABRICATOR WELDER, CLAUS J 522.5 PERIAPICAL ABSCESS WITHOUT SINUS 07/21/2012 MAIKEL CASANOVA DDS 522.5 PERIAPICAL ABSCESS WITHOUT SINUS 07/21/2012 HARRY METAL FABRICATOR WELDER, CLAUS J 522.5 PERIAPICAL ABSCESS WITHOUT SINUS 07/21/2012 HARRY METAL FABRICATOR WELDER, CLAUS J 522.5 PERIAPICAL ABSCESS WITHOUT SINUS 07/21/2012 HARRY METAL FABRICATOR WELDER, CLAUS J 522.5 PERIAPICAL ABSCESS WITHOUT SINUS [...] CLAUS J 312.34 INTERMITTENT EXPLOSIVE DISORDER 02/11/2013 MERT SINGH DO V58.32 ENCOUNTER FOR REMOVAL OF SUTURES 02/11/2013 [...] GAITAN MD Ot 780.39 OTHER CONVULSIONS 08/18/2013 SHAWN GAITAN MD Ot 781.0 ABN INVOLUN MOVEMENT NEC 10/31/2015 [...] PURE HYPERCHOLESTEROLEMIA, UNSPECIFIED 12/07/2016 ARNIE UNDERWOOD, SHAWN Benavides Ot F20.9 SCHIZOPHRENIA, UNSPECIFIED 12/07/2016 ARNIE UNDERWOOD, SHAWN Benavides Ot G40.909 EPILEPSY, [...] Benavides Ot E78.00 PURE HYPERCHOLESTEROLEMIA, UNSPECIFIED 12/09/2016 SHAWN GAITAN MD Ot F20.9 SCHIZOPHRENIA, UNSPECIFIED 12/09/2016 SHAWN GAITAN MD Ot G40.909 EPILEPSY, UNSP, NOT INTRACTABLE, WITHOUT 12/09/2016 SHAWN GAITAN MD Ot K59.09 OTHER CONSTIPATION 12/09/2016 SHAWN GAITAN MD Ot R51 HEADACHE 12/09/2016 SHAWN GAITAN MD Ot S80.211A ABRASION, RIGHT KNEE, INITIAL ENCOUNTER 12/09/2016 SHAWN GAITAN MD Ot S80.212A ABRASION, LEFT KNEE, INITIAL ENCOUNTER 12/09/2016 SHAWN GAITAN MD Ot X58.XXXA EXPOSURE TO OTHER SPECIFIED FACTORS, INI 03/06/2017 DEZ UNDERWOOD, VICKI Garcias Ot E78.00 PURE HYPERCHOLESTEROLEMIA, UNSPECIFIED 03/06/2017 VICKI GARCES MD Ot F17.210 NICOTINE DEPENDENCE, CIGARETTES, UNCOMPL 03/06/2017 VICKI GARCES MD Ot F20.9 SCHIZOPHRENIA, UNSPECIFIED 03/06/2017 VICKI GARCES MD Ot G40.909 EPILEPSY, UNSP, NOT INTRACTABLE, WITHOUT 03/06/2017 VICKI GARCES MD Ot N39.0 URINARY TRACT INFECTION, SITE NOT SPECIF 03/06/2017 VICKI GARCES MD Ot R41.0 DISORIENTATION, UNSPECIFIED 03/06/2017 VICKI GARCES MD Ot W19.XXXA UNSPECIFIED FALL, INITIAL ENCOUNTER 03/06/2017 VICKI GARCES MD Ot Z87.19 PERSONAL HISTORY OF OTHER DISEASES OF TH 03/16/2017 HUGO LUCIO DO Ot G31.89 OTHER SPECIFIED DEGENERATIVE DISEASES OF 03/16/2017 HUGO LUCIO DO Ot J32.9 CHRONIC SINUSITIS, UNSPECIFIED 03/16/2017 HUGO LUCIO DO Ot R29.6 REPEATED FALLS 03/16/2017 HUGO LUCIO DO Ot R41.82 ALTERED MENTAL STATUS, UNSPECIFIED 03/16/2017 HUGO LUCIO DO Ot R42 DIZZINESS AND GIDDINESS 03/27/2017 MENG UNDERWOOD, CYNTHIA Posadas Ot E78.00 PURE HYPERCHOLESTEROLEMIA, UNSPECIFIED 03/27/2017 CYNTHIA FAN MD Ot E87.0 HYPEROSMOLALITY AND HYPERNATREMIA 03/27/2017 CYNTHIA FAN MD Ot F17.210 NICOTINE DEPENDENCE, CIGARETTES, UNCOMPL 03/27/2017 CYNTHIA FAN MD Ot F20.9 SCHIZOPHRENIA, UNSPECIFIED 03/27/2017 CYNTHIA FAN MD Ot F32.9 MAJOR DEPRESSIVE DISORDER, SINGLE EPISOD 03/27/2017 CYNTHIA FAN MD Ot F63.81 INTERMITTENT EXPLOSIVE DISORDER 03/27/2017 CYNTHIA FAN MD Ot F72 SEVERE INTELLECTUAL DISABILITIES 03/27/2017 CYNTHIA FAN MD Ot G40.909 EPILEPSY, UNSP, NOT INTRACTABLE, WITHOUT 03/27/2017 CYNTHIA FAN MD Ot I10 ESSENTIAL (PRIMARY) HYPERTENSION 03/27/2017 CYNTHIA FAN MD Ot J18.9 PNEUMONIA, UNSPECIFIED ORGANISM 03/27/2017 CYNTHIA FAN MD Ot K21.9 GASTRO-ESOPHAGEAL REFLUX DISEASE WITHOUT 03/27/2017 CYNTHIA FAN MD Ot K59.09 OTHER CONSTIPATION 03/27/2017 CYNTHIA FAN MD Ot L40.9 PSORIASIS, UNSPECIFIED 03/27/2017 CYNTHIA FAN MD Ot R09.02 HYPOXEMIA 03/27/2017 CYNTHIA FAN MD Ot R46.89 OTHER SYMPTOMS AND SIGNS INVOLVING APPEA 03/29/2017 CYNTHIA FAN MD Ot E78.00 PURE HYPERCHOLESTEROLEMIA, UNSPECIFIED 03/29/2017 CYNTHIA FAN MD Ot E87.0 HYPEROSMOLALITY AND HYPERNATREMIA 03/29/2017 CYNTHIA FAN MD Ot F17.210 NICOTINE DEPENDENCE, CIGARETTES, UNCOMPL 03/29/2017 CYNTHIA FAN MD Ot F20.9 SCHIZOPHRENIA, UNSPECIFIED 03/29/2017 CYNTHIA FAN MD Ot F32.9 MAJOR DEPRESSIVE DISORDER, SINGLE EPISOD 03/29/2017 CYNTHIA FAN MD Ot F63.81 INTERMITTENT EXPLOSIVE DISORDER 03/29/2017 CYNTHIA FAN MD Ot F72 SEVERE INTELLECTUAL DISABILITIES 03/29/2017 CYNTHIA FAN MD Ot G40.909 EPILEPSY, UNSP, NOT INTRACTABLE, WITHOUT 03/29/2017 CYNTHIA FAN MD Ot I10 ESSENTIAL (PRIMARY) HYPERTENSION 03/29/2017 CYNTHIA FAN MD, Ot J18.9 PNEUMONIA, UNSPECIFIED ORGANISM 03/29/2017 CYNTHIA FAN MD Ot K21.9 GASTRO-ESOPHAGEAL REFLUX DISEASE WITHOUT 03/29/2017 CYNTHIA FAN MD Ot K59.09 OTHER CONSTIPATION 03/29/2017 CYNTHIA FAN MD Ot L40.9 PSORIASIS, UNSPECIFIED 03/29/2017 CYNTHIA FAN MD Ot R09.02 HYPOXEMIA 03/29/2017 CYNTHIA FAN MD Ot R46.89 OTHER SYMPTOMS AND SIGNS INVOLVING APPEA 03/31/2017 CYNTHIA FAN MD Ot E78.00 PURE HYPERCHOLESTEROLEMIA, UNSPECIFIED 03/31/2017 CYNTHIA FAN MD Ot E87.0 HYPEROSMOLALITY AND HYPERNATREMIA 03/31/2017 CYNTHIA FAN MD Ot F17.210 NICOTINE DEPENDENCE, CIGARETTES, UNCOMPL 03/31/2017 CYNTHIA FAN MD Ot F20.9 SCHIZOPHRENIA, UNSPECIFIED 03/31/2017 CYNTHIA FAN MD Ot F32.9 MAJOR DEPRESSIVE DISORDER, SINGLE EPISOD 03/31/2017 CYNTHIA FAN MD Ot F63.81 INTERMITTENT EXPLOSIVE DISORDER 03/31/2017 CYNTHIA FAN MD Ot F72 SEVERE INTELLECTUAL DISABILITIES 03/31/2017 CYNTHIA FAN MD Ot G40.909 EPILEPSY, UNSP, NOT INTRACTABLE, WITHOUT 03/31/2017 CYNTHIA FAN MD Ot I10 ESSENTIAL (PRIMARY) HYPERTENSION 03/31/2017 CYNTHIA FAN MD Ot J18.9 PNEUMONIA, UNSPECIFIED ORGANISM 03/31/2017 CYNTHIA FAN MD Ot K21.9 GASTRO-ESOPHAGEAL REFLUX DISEASE WITHOUT 03/31/2017 CYNTHIA FAN MD Ot K59.09 OTHER CONSTIPATION 03/31/2017 CYNTHIA FAN MD Ot L40.9 PSORIASIS, UNSPECIFIED 03/31/2017 CYNTHIA FAN MD Ot R09.02 HYPOXEMIA 03/31/2017 CYNTHIA FAN MD Ot R46.89 OTHER SYMPTOMS AND SIGNS INVOLVING APPEA 03/31/2017 CYNTHIA FAN MD Ot E78.00 PURE HYPERCHOLESTEROLEMIA, UNSPECIFIED 03/31/2017 CYNTHIA FAN MD Ot E87.0 HYPEROSMOLALITY AND HYPERNATREMIA 03/31/2017 CYNTHIA FAN MD Ot F17.210 NICOTINE DEPENDENCE, CIGARETTES, UNCOMPL 03/31/2017 CYNTHIA FAN MD Ot F20.9 SCHIZOPHRENIA, UNSPECIFIED 03/31/2017 CYNTHIA FAN MD, Ot F32.9 MAJOR DEPRESSIVE DISORDER, SINGLE EPISOD 03/31/2017 CYNTHIA FAN MD Ot F63.81 INTERMITTENT EXPLOSIVE DISORDER 03/31/2017 CYNTHIA FAN MD Ot F72 SEVERE INTELLECTUAL DISABILITIES 03/31/2017 CYNTHIA FAN MD Ot G40.909 EPILEPSY, UNSP, NOT INTRACTABLE, WITHOUT 03/31/2017 CYNTHIA FAN MD Ot I10 ESSENTIAL (PRIMARY) HYPERTENSION 03/31/2017 CYNTHIA FAN MD Ot J18.9 PNEUMONIA, UNSPECIFIED ORGANISM 03/31/2017 CYNTHIA FAN MD Ot K21.9 GASTRO-ESOPHAGEAL REFLUX DISEASE WITHOUT 03/31/2017 CYNTHIA FAN MD Ot K59.09 OTHER CONSTIPATION 03/31/2017 CYNTHIA FAN MD Ot L40.9 PSORIASIS, UNSPECIFIED 03/31/2017 CYNTHIA FAN MD Ot R09.02 HYPOXEMIA 03/31/2017 CYNTHIA FAN MD Ot R46.89 OTHER SYMPTOMS AND SIGNS INVOLVING APPEA 03/31/2017 CYNTHIA FAN MD Ot E78.00 PURE HYPERCHOLESTEROLEMIA, UNSPECIFIED 03/31/2017 CYNTHIA FAN MD Ot E87.0 HYPEROSMOLALITY AND HYPERNATREMIA 03/31/2017 CYNTHIA FAN MD Ot F17.210 NICOTINE DEPENDENCE, CIGARETTES, UNCOMPL 03/31/2017 CYNTHIA FAN MD Ot F20.9 SCHIZOPHRENIA, UNSPECIFIED 03/31/2017 CYNTHIA FAN MD Ot F32.9 MAJOR DEPRESSIVE DISORDER, SINGLE EPISOD 03/31/2017 CYNTHIA FAN MD Ot F63.81 INTERMITTENT EXPLOSIVE DISORDER 03/31/2017 CYNTHIA FAN MD Ot F72 SEVERE INTELLECTUAL DISABILITIES 03/31/2017 CYNTHIA FAN MD Ot G40.909 EPILEPSY, UNSP, NOT INTRACTABLE, WITHOUT 03/31/2017 CYNTHIA FAN MD Ot I10 ESSENTIAL (PRIMARY) HYPERTENSION 03/31/2017 CYNTHIA FAN MD Ot J18.9 PNEUMONIA, UNSPECIFIED ORGANISM 03/31/2017 CYNTHIA FAN MD Ot K21.9 GASTRO-ESOPHAGEAL REFLUX DISEASE WITHOUT 03/31/2017 CYNTHIA FAN MD Ot K59.09 OTHER CONSTIPATION 03/31/2017 CYNTHIA FAN MD Ot L40.9 PSORIASIS, UNSPECIFIED 03/31/2017 CYNTHIA FAN MD Ot R09.02 HYPOXEMIA 03/31/2017 CYNTHIA FAN MD Ot R46.89 OTHER SYMPTOMS AND SIGNS INVOLVING APPEA 03/31/2017 CYNTHIA FAN MD Ot E78.00 PURE HYPERCHOLESTEROLEMIA, UNSPECIFIED 03/31/2017 CYNTHIA FAN MD Ot E87.0 HYPEROSMOLALITY AND HYPERNATREMIA 03/31/2017 CYNTHIA FAN MD Ot F17.210 NICOTINE DEPENDENCE, CIGARETTES, UNCOMPL 03/31/2017 CYNTHIA FAN MD Ot F20.9 SCHIZOPHRENIA, UNSPECIFIED 03/31/2017 CYNTHIA FAN MD Ot F32.9 MAJOR DEPRESSIVE DISORDER, SINGLE EPISOD 03/31/2017 CYNTHIA FAN MD Ot F63.81 INTERMITTENT EXPLOSIVE DISORDER 03/31/2017 CYNTHIA FAN MD Ot F72 SEVERE INTELLECTUAL DISABILITIES 03/31/2017 CYNTHIA FAN MD Ot G40.909 EPILEPSY, UNSP, NOT INTRACTABLE, WITHOUT 03/31/2017 CYNTHIA FAN MD Ot I10 ESSENTIAL (PRIMARY) HYPERTENSION 03/31/2017 CYNTHIA FAN MD Ot J18.9 PNEUMONIA, UNSPECIFIED ORGANISM 03/31/2017 CYNTHIA FAN MD Ot K21.9 GASTRO-ESOPHAGEAL REFLUX DISEASE WITHOUT 03/31/2017 CYNTHIA FAN MD Ot K59.09 OTHER CONSTIPATION 03/31/2017 CYNTHIA FAN MD Ot L40.9 PSORIASIS, UNSPECIFIED 03/31/2017 CYNTHIA FAN MD Ot R09.02 HYPOXEMIA 03/31/2017 CYNTHIA FAN MD Ot R46.89 OTHER SYMPTOMS AND SIGNS INVOLVING APPEA 04/01/2017 CYNTHIA FAN MD Ot E78.00 PURE HYPERCHOLESTEROLEMIA, UNSPECIFIED 04/01/2017 CYNTHIA FAN MD Ot E83.42 HYPOMAGNESEMIA 04/01/2017 CYNTHIA FAN MD Ot E87.0 HYPEROSMOLALITY AND HYPERNATREMIA 04/01/2017 CYNTHIA FAN MD Ot E87.6 HYPOKALEMIA 04/01/2017 CYNTHIA FAN MD Ot F17.210 NICOTINE DEPENDENCE, CIGARETTES, UNCOMPL 04/01/2017 CYNTHIA FAN MD Ot F20.9 SCHIZOPHRENIA, UNSPECIFIED 04/01/2017 CYNTHIA FAN MD Ot F32.9 MAJOR DEPRESSIVE DISORDER, SINGLE EPISOD 04/01/2017 CYNTHIA FAN MD Ot F63.81 INTERMITTENT EXPLOSIVE DISORDER 04/01/2017 CYNTHIA FAN MD Ot F72 SEVERE INTELLECTUAL DISABILITIES 04/01/2017 CYNTHIA FAN MD Ot G40.909 EPILEPSY, UNSP, NOT INTRACTABLE, WITHOUT 04/01/2017 CYNTHIA FAN MD Ot I10 ESSENTIAL (PRIMARY) HYPERTENSION 04/01/2017 CYNTHIA FAN MD Ot J18.9 PNEUMONIA, UNSPECIFIED ORGANISM 04/01/2017 CYNTHIA FAN MD Ot J96.01 ACUTE RESPIRATORY FAILURE WITH HYPOXIA 04/01/2017 CYNTHIA FAN MD Ot J96.02 ACUTE RESPIRATORY FAILURE WITH HYPERCAPN 04/01/2017 CYNTHIA FAN MD Ot J98.09 OTHER DISEASES OF BRONCHUS, NOT ELSEWHER 04/01/2017 CYNTHIA FAN MD Ot K21.9 GASTRO-ESOPHAGEAL REFLUX DISEASE WITHOUT 04/01/2017 CYNTHIA FAN MD Ot K59.09 OTHER CONSTIPATION 04/01/2017 CYNTHIA FAN MD Ot L40.9 PSORIASIS, UNSPECIFIED 04/01/2017 CYNTHIA FAN MD Ot R40.20 UNSPECIFIED COMA 04/01/2017 CYNTHIA FAN MD Ot S12.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 04/01/2017 CYNTHIA FAN MD Ot X58.XXXA EXPOSURE TO OTHER SPECIFIED FACTORS, INI 04/01/2017 CYNTHIA FAN MD Ot Z66 DO NOT RESUSCITATE 04/02/2017 CYNTHIA FAN MD Ot J18.9 PNEUMONIA, UNSPECIFIED ORGANISM 04/06/2017 CYNTHIA FAN MD Ot E78.00 PURE HYPERCHOLESTEROLEMIA, UNSPECIFIED 04/06/2017 CYNTHIA FAN MD Ot F17.210 NICOTINE DEPENDENCE, CIGARETTES, UNCOMPL 04/06/2017 CYNTHIA FAN MD Ot F20.9 SCHIZOPHRENIA, UNSPECIFIED 04/06/2017 CYNTHIA FAN MD Ot F32.9 MAJOR DEPRESSIVE DISORDER, SINGLE EPISOD 04/06/2017 CYNTHIA FAN MD Ot F63.81 INTERMITTENT EXPLOSIVE DISORDER 04/06/2017 CYNTHIA FAN MD Ot F72 SEVERE INTELLECTUAL DISABILITIES 04/06/2017 CYNTHIA FAN MD Ot G40.909 EPILEPSY, UNSP, NOT INTRACTABLE, WITHOUT 04/06/2017 CYNTHIA FAN MD Ot I10 ESSENTIAL (PRIMARY) HYPERTENSION 04/06/2017 CYNTHIA FAN MD Ot J18.9 PNEUMONIA, UNSPECIFIED ORGANISM 04/06/2017 CYNTHIA FAN MD Ot K21.9 GASTRO-ESOPHAGEAL REFLUX DISEASE WITHOUT 04/06/2017 CYNTHIA FAN MD Ot K59.09 OTHER CONSTIPATION 04/06/2017 CYNTHIA FAN MD Ot L40.9 PSORIASIS, UNSPECIFIED 04/06/2017 CYNTHIA FAN MD, Ot S12.691D OT NONDISP FX OF 7TH CERVCAL VERT, SUBS 04/06/2017 CYNTHIA FAN MD Ot Z66 DO NOT RESUSCITATE 04/06/2017 CYNTHIA FAN MD Ot E78.00 PURE HYPERCHOLESTEROLEMIA, UNSPECIFIED 04/06/2017 CYNTHIA FAN MD Ot F17.210 NICOTINE DEPENDENCE, CIGARETTES, UNCOMPL 04/06/2017 CYNTHIA FAN MD Ot F20.9 SCHIZOPHRENIA, UNSPECIFIED 04/06/2017 CYNTHIA FAN MD Ot F32.9 MAJOR DEPRESSIVE DISORDER, SINGLE EPISOD 04/06/2017 CYNTHIA FAN MD Ot F63.81 INTERMITTENT EXPLOSIVE DISORDER 04/06/2017 CYNTHIA FAN MD Ot F72 SEVERE INTELLECTUAL DISABILITIES 04/06/2017 CYNTHIA FAN MD Ot G40.909 EPILEPSY, UNSP, NOT INTRACTABLE, WITHOUT 04/06/2017 CYNTHIA FAN MD Ot I10 ESSENTIAL (PRIMARY) HYPERTENSION 04/06/2017 CYNTHIA FAN MD Ot J18.9 PNEUMONIA, UNSPECIFIED ORGANISM 04/06/2017 CYNTHIA FAN MD Ot K21.9 GASTRO-ESOPHAGEAL REFLUX DISEASE WITHOUT 04/06/2017 CYNTHIA FAN MD Ot K59.09 OTHER CONSTIPATION 04/06/2017 CYNTHIA FAN MD Ot L40.9 PSORIASIS, UNSPECIFIED 04/06/2017 CYNTHIA FAN MD Ot S12.691D OTH NONDISP FX OF 7TH CERVCAL VERT, SUBS 04/06/2017 CYNTHIA FAN MD Ot Z66 DO NOT RESUSCITATE 04/07/2017 GELLENDER DO, HUGO A Ot G31.89 OTHER SPECIFIED DEGENERATIVE DISEASES OF 04/07/2017 GELLENDER DO, HUGO Lee Ot J32.9 CHRONIC SINUSITIS, UNSPECIFIED 04/07/2017 GELLENDER DO, HUGO Howard Ot R29.6 REPEATED FALLS 04/07/2017 GELLENDER DO, HUGO Howard Ot R41.82 ALTERED MENTAL STATUS, UNSPECIFIED 04/07/2017 GELLENDER DO, HUGO Howard Ot R42 DIZZINESS AND GIDDINESS 04/24/2017 GELLENDER DO, HUGO Howard Ot G31.89 OTHER SPECIFIED DEGENERATIVE DISEASES OF 04/24/2017 GELLENDER DO, HUGO Lee Ot J32.9 CHRONIC SINUSITIS, UNSPECIFIED 04/24/2017 GELLENDER DO, HUGO A Ot R29.6 REPEATED FALLS 04/24/2017 GELLENDER DO, HUGO A Ot R41.82 ALTERED MENTAL STATUS, UNSPECIFIED 04/24/2017 GELLENDER DO, HUGO A Ot R42 DIZZINESS AND GIDDINESS 03/10/2018 VIMAL UNDERWOOD, NAWAF P Ot R13.12 DYSPHAGIA, OROPHARYNGEAL PHASE 03/10/2018 VIMAL UNDERWOOD, NAWAF [place] Ot R13.12 DYSPHAGIA, OROPHARYNGEAL PHASE 03/12/2018 VIMAL UNDERWOOD, NAWAF [place]zada Ot R13.12 DYSPHAGIA, OROPHARYNGEAL PHASE 03/23/2018 VIMAL UNDERWOOD, NAWAF [place]zada Ot R13.10 DYSPHAGIA, UNSPECIFIED 03/28/2018 VIMAL UNDERWOOD, NAWAF Calzada Ot R13.10 DYSPHAGIA, UNSPECIFIED 04/13/2018 VIMAL UNDERWOOD, NAWAF Calzada Ot R13.10 DYSPHAGIA, UNSPECIFIED 04/22/2018 VIMAL UNDERWOOD, NAWAF [place] Ot R13.10 DYSPHAGIA, UNSPECIFIED Procedures Code Description [place] [address] CBC 01/08/2012 90654 PSYCH PHARM MGMT 01/16/2012 57248 CBC 02/23/2012 86790 CBC 04/26/2012 06585 CBC 05/07/2012 46897 CBC 05/14/2012 04176 CMP 05/25/2012 58034 LIPID PANEL 05/25/2012 14876 TSH 05/25/2012 84575 CBC 05/25/2012 71502 CBC 05/28/2012 17855 XRAY CHEST 2 VIEW 06/22/2012 76404 CBC 09/06/2012 71345 CBC 09/06/2012 96678 CBC 09/14/2012 74180 CBC 09/20/2012 45126 CBC 09/27/2012 29672 CBC 10/07/2012 67929 CBC 10/12/2012 41945 CBC 10/18/2012 97060 CBC 11/16/2012 06642 CBC 11/22/2012 97189 CBC 11/30/2012 48438 CBC 12/08/2012 23073 CBC 12/13/2012 14774 CBC 12/27/2012 22126 CBC 01/03/2013 89283 CBC 01/11/2013 75007 CBC 01/20/2013 29446 CBC 01/24/2013 81497 CBC 01/29/2013 95174 CBC 02/07/2013 13747 CBC 02/14/2013 77759 CBC 02/21/2013 96177 CBC 02/25/2013 67555 CBC 03/07/2013 81063 CBC 03/21/2013 13387 CBC 03/29/2013 24457 CBC 04/05/2013 63595 CBC 04/26/2013 88763 CBC 05/03/2013 17700 CBC 05/12/2013 33116 CBC 05/17/2013 78038 CBC 06/03/2013 45472 CBC 06/15/2013 90625 CBC 07/07/2013 82381 CBC 07/12/2013 30076 CBC 07/26/2013 59436 CBC 08/08/2013 61603 CBC 08/08/2013 04750 CBC 08/15/2013 52773 CBC 08/29/2013 85091 CBC 09/07/2013 53614 CBC 09/12/2013 27836 CBC 09/19/2013 21639 CBC 09/26/2013 10846 CBC 10/05/2013 20153 CBC 10/11/2013 44760 CBC W/MANUAL DIF (order) 10/24/2013 27020 CBC 10/31/2013 38121 CBC 11/08/2013 05389 CBC 11/18/2013 63296 CBC 11/22/2013 51137 CBC 11/29/2013 76212 CBC 12/07/2013 73216 CBC 12/12/2013 62047 CBC 12/23/2013 73852 CBC 01/02/2014 99807 CBC 01/06/2014 50843 CBC 01/30/2014 82194 CBC 02/07/2014 29874 CBC 02/14/2014 85117 CBC 02/20/2014 78343 CBC 03/08/2014 78920 CBC W/MANUAL DIF (order) 06/15/2014 [id number] DRAINAGE OF RIGHT MIDDLE LOBE BRONCHUS, 03/27/2017 [id number] DRAINAGE OF RIGHT MIDDLE LUNG LOBE, ENDO 03/27/2017 [id number] EXTRACTION OF RIGHT MIDDLE LOBE BRONCHUS 03/27/2017 [id number] RESPIRATORY VENTILATION, 24- 96 CONSECUTI 03/27/2017 Results Test Result Range Urine drug screening [...] Automated erythrocyte mean corpuscular hemoglobin concentration measurement (mass/volume) 34 g/dL 32-36 Automated erythrocyte distribution width ratio 14.9 % 10.0- 14.5 Automated blood platelet count (count/volume) 164 10*3/uL [...] Blood monocytes automated count (number/volume) 0.9 10*3 0.0- 1.0 Automated eosinophil count 0.2 10*3/uL 0.0-0.3 Automated [...] Serum or plasma aspartate aminotransferase measurement (enzymatic activity/volume) 13 U/L 5-34 Serum or plasma alanine aminotransferase measurement (enzymatic activity/volume) 15 U/L 0-55 Serum or plasma protein measurement (mass/volume) 6.2 g/dL 6.4-8.2 Serum or plasma albumin measurement (mass/volume) 4.0 g/dL 3.2-4.5 Serum or plasma amylase measurement (enzymatic activity/volume) - 10/31/15 05:35 Serum or plasma amylase measurement (enzymatic activity/volume) 25 U/L 25-125 Lipase - 10/31/15 05:35 Lipase 26 [...] gravity of urine by test strip 1.005 1.016-1.022 Urine protein assay by test strip, semi-quantitative [...] sediment leukocyte count by microscopy (number/high power field) NONE NRG Bacteria detection in urine sediment [...] gravity of urine by test strip 1.010 1.016-1.022 Urine protein assay by test strip, semi-quantitative [...] sediment leukocyte count by microscopy (number/high power field) RARE NRG Bacteria detection in urine sediment [...] Automated erythrocyte mean corpuscular hemoglobin concentration measurement (mass/volume) 33 g/dL 32-36 Automated erythrocyte distribution width ratio 15.3 % 10.0- 14.5 Automated blood platelet count (count/volume) 215 10*3/uL [...] Blood monocytes automated count (number/volume) 1.3 10*3 0.0- 1.0 Automated eosinophil count 0.1 10*3/uL 0.0-0.3 Automated [...] Serum or plasma aspartate aminotransferase measurement (enzymatic activity/volume) 15 U/L 5-34 Serum or plasma alanine aminotransferase measurement (enzymatic activity/volume) 12 U/L 0-55 Serum or plasma protein measurement (mass/volume) 7.1 g/dL 6.4-8.2 Serum or plasma albumin measurement (mass/volume) 4.1 g/dL 3.2-4.5 Streptococcus pyogenes antigen detection - 03/05/17 21:07 Streptococcus pyogenes antigen detection NEGATIVE NEGATIVE Influenza virus A and B antigen detection - 03/05/17 21:07 FLU RESULT NEGATIVE FOR INFLUENZA A AND B ANTIGENS BY [facility] Complete blood count (CBC) with automated white [...] Automated erythrocyte mean corpuscular hemoglobin concentration measurement (mass/volume) 33 g/dL 32-36 Automated erythrocyte distribution width ratio 16.0 % 10.0- 14.5 Automated blood platelet count (count/volume) 213 10*3/uL [...] Blood monocytes automated count (number/volume) 1.5 10*3 0.0- 1.0 Automated eosinophil count 0.0 10*3/uL 0.0-0.3 Automated [...] Serum or plasma aspartate aminotransferase measurement (enzymatic activity/volume) 22 U/L 5-34 Serum or plasma alanine aminotransferase measurement (enzymatic activity/volume) 16 U/L 0-55 Serum or plasma protein measurement (mass/volume) 7.1 g/dL 6.4-8.2 Serum or plasma albumin measurement (mass/volume) 3.9 g/dL 3.2-4.5 Bacterial throat culture - 03/05/17 21:07 Bacterial throat culture NBS NRG Complete urinalysis with reflex to culture - 03/05/17 23:21 Urine color determination BROWN NRG Urine clarity determination CLEAR NRG Urine pH measurement by test strip 7 5-9 Specific gravity of urine by test strip 1.010 1.016-1.022 Urine protein assay by test strip, semi-quantitative [...] sediment leukocyte count by microscopy (number/high power field) [HPF] NRG Bacteria detection in urine sediment by light microscopy NEGATIVE NRG Squamous epithelial cells detection in urine sediment by light microscopy 0-2 NRG Crystals detection in urine sediment by light microscopy NONE NRG Casts detection in urine sediment by light microscopy NONE NRG Mucus detection in urine sediment by light microscopy LARGE NRG Complete urinalysis with reflex to culture NO NRG Blood lactic acid measurement (moles/volume) - 03/25/17 11:17 Blood lactic acid measurement (moles/volume) 1.75 mmol/L 0.50- 2.00 Complete blood count (CBC) with automated white blood cell (WBC) differential - 03/25/17 11:17 Blood leukocytes automated count (number/volume) 13.1 10*3/uL 4.3-11.0 Blood erythrocytes automated count (number/volume) 5.27 10*6/uL 4.35-5.85 Venous blood hemoglobin measurement (mass/volume) 13.6 g/dL 13.3-17.7 Blood hematocrit (volume fraction) 43 % 40-54 Automated erythrocyte mean corpuscular volume 81 [foz_us] 80-99 Automated erythrocyte mean corpuscular hemoglobin (mass per erythrocyte) 26 pg 25-34 Automated erythrocyte mean corpuscular hemoglobin concentration measurement (mass/volume) 32 g/dL 32-36 Automated erythrocyte distribution width ratio 19.2 % 10.0- 14.5 Automated blood platelet count (count/volume) 259 10*3/uL 130-400 Automated blood platelet mean volume measurement 10.5 [foz_us] 7.4-10.4 Automated blood neutrophils/100 leukocytes 75 % 42-75 Automated blood lymphocytes/100 leukocytes 16 % 12-44 Blood monocytes/100 leukocytes 8 % 0-12 Automated blood eosinophils/100 leukocytes 0 % 0-10 Automated blood basophils/100 leukocytes 1 % 0-10 Blood neutrophils automated count (number/volume) 9.9 10*3 1.8-7.8 Blood lymphocytes automated count (number/volume) 2.1 10*3 1.0-4.0 Blood monocytes automated count (number/volume) 1.1 10*3 0.0- 1.0 Automated eosinophil count 0.0 10*3/uL 0.0-0.3 Automated blood basophil count (count/volume) 0.1 10*3/uL 0.0-0.1 PT panel in platelet poor plasma by coagulation assay - 03/25/17 11:17 Prothrombin time (PT) in platelet poor plasma by coagulation assay 14.9 s 12.2-14.7 INR in platelet poor plasma or blood by coagulation assay 1.2 0.8-1.4 Activated partial thromboplastin time (aPTT) in platelet poor plasma bycoagulation assay - 03/25/17 11:17 Activated partial thromboplastin time (aPTT) in platelet poor plasma bycoagulation assay 29 s 24-35 Fibrin D-dimer FEU measurement in platelet poor plasma (mass/volume) - 03/25/17 11:17 Fibrin D-dimer FEU measurement in platelet poor plasma (mass/volume) 1.58 ug/mL 0.00-0.49 Comprehensive metabolic panel - 03/25/17 11:17 Serum or plasma sodium measurement (moles/volume) 149 mmol/L 135-145 Serum or plasma potassium measurement (moles/volume) 4.3 mmol/L 3.6-5.0 Serum or plasma chloride measurement (moles/volume) 104 mmol/L 98-107 Carbon dioxide 33 mmol/L 21-32 Serum or plasma anion gap determination (moles/volume) 12 mmol/L 5-14 Serum or plasma urea nitrogen measurement (mass/volume) 22 mg/dL 7-18 Serum or plasma creatinine measurement (mass/volume) 0.76 mg/dL 0.60-1.30 Serum or plasma urea nitrogen/creatinine mass ratio 29 NRG Serum or plasma creatinine measurement with calculation of estimated glomerular filtration rate > NRG Serum or plasma glucose measurement (mass/volume) 102 mg/dL 70-105 Serum or plasma calcium measurement (mass/volume) 8.8 mg/dL 8.5-10.1 Serum or plasma total bilirubin measurement (mass/volume) 0.6 mg/dL 0.1-1.0 Serum or plasma alkaline phosphatase measurement (enzymatic activity/volume) 87 U/L 40-136 Serum or plasma aspartate aminotransferase measurement (enzymatic activity/volume) 39 U/L 5-34 Serum or plasma alanine aminotransferase measurement (enzymatic activity/volume) 29 U/L 0-55 Serum or plasma protein measurement (mass/volume) 7.0 g/dL 6.4-8.2 Serum or plasma albumin measurement (mass/volume) 3.6 g/dL 3.2-4.5 Magnesium - 03/25/17 11:17 Magnesium 2.8 mg/dL 1.8-2.4 Serum or plasma creatine kinase measurement (enzymatic activity/volume) - 03/25/17 11:17 Serum or plasma creatine kinase measurement (enzymatic activity/volume) 638 U/L 30-200 Serum or plasma creatine kinase MB measurement (enzymatic activity/volume) - 03/25/17 11:17 Serum or plasma creatine kinase MB measurement (enzymatic activity/volume) 4.7 ng/mL <6.6 Blood manual differential performed detection - 03/25/17 11:17 Blood monocytes/100 leukocytes 6 % NRG Manual blood segmented neutrophils/100 leukocytes 54 % NRG Blood band neutrophils/100 leukocytes 8 % NRG Manual blood lymphocytes/100 leukocytes 22 % NRG Manual eosinophils/100 leukocytes in nose 0 % NRG Manual blood basophils/100 leukocytes 0 % NRG Blood smudge cells detection by light microscopy MOD NRG Blood lymphocytes variant/100 leukocytes 8 % NRG Blood ovalocytes detection by light microscopy SLIGHT NRG Blood toxic granules detection by light microscopy 2+ NRG Manual blood metamyelocytes/100 leukocytes 2 % NRG Blood poikilocytosis detection by light microscopy MODERATE NRG Manual blood nucleated erythrocytes/100 leukocytes ratio 4 NRG Blood rouleaux detection by light microscopy MOD NRG Blood stomatocytes detection by light microscopy SLIGHT NRG Serum or plasma troponin i.cardiac measurement (mass/volume) - 03/25/17 11:17 Serum or plasma troponin i.cardiac measurement (mass/volume) < ng/mL <0.30 Myoglobin, serum - 03/25/17 11:17 Myoglobin, serum 255.2 ng/mL 10.0-92.0 Serum or plasma thyrotropin measurement by detection limit <=0.05 miu/l (units/volume) - 03/25/17 11:17 Serum or plasma thyrotropin measurement by detection limit <=0.05 miu/l (units/volume) 0.81 u[iU]/mL 0.35-4.94 Serum or plasma C reactive protein measurement (mass/volume) - 03/25/17 11:17 Serum or plasma C reactive protein measurement (mass/volume) 12.93 mg/dL 0.00-0.50 Bacterial blood culture - 03/25/17 11:17 Bacterial blood culture NG NRG Bacterial blood culture - 03/25/17 11:42 Bacterial blood culture NG NRG Blood lactic acid measurement (moles/volume) - 03/26/17 05:20 Blood lactic acid measurement (moles/volume) 0.66 mmol/L 0.50- 2.00 Complete blood count (CBC) with automated white blood cell (WBC) differential - 03/26/17 05:20 Blood leukocytes automated count (number/volume) 9.6 10*3/uL 4.3-11.0 Blood erythrocytes automated count (number/volume) 4.78 10*6/uL 4.35-5.85 Venous blood hemoglobin measurement (mass/volume) 12.4 g/dL 13.3-17.7 Blood hematocrit (volume fraction) 39 % 40-54 Automated erythrocyte mean corpuscular volume 82 [foz_us] 80-99 Automated erythrocyte mean corpuscular hemoglobin (mass per erythrocyte) 26 pg 25-34 Automated erythrocyte mean corpuscular hemoglobin concentration measurement (mass/volume) 32 g/dL 32-36 Automated erythrocyte distribution width ratio 18.8 % 10.0- 14.5 Automated blood platelet count (count/volume) 247 10*3/uL 130-400 Automated blood platelet mean volume measurement 10.3 [foz_us] 7.4-10.4 Automated blood neutrophils/100 leukocytes 79 % 42-75 Automated blood lymphocytes/100 leukocytes 15 % 12-44 Blood monocytes/100 leukocytes 5 % 0-12 Automated blood eosinophils/100 leukocytes 0 % 0-10 Automated blood basophils/100 leukocytes 0 % 0-10 Blood neutrophils automated count (number/volume) 7.6 10*3 1.8-7.8 Blood lymphocytes automated count (number/volume) 1.5 10*3 1.0-4.0 Blood monocytes automated count (number/volume) 0.5 10*3 0.0- 1.0 Automated eosinophil count 0.0 10*3/uL 0.0-0.3 Automated blood basophil count (count/volume) 0.0 10*3/uL 0.0-0.1 Comprehensive metabolic panel - 03/26/17 05:20 Serum or plasma sodium measurement (moles/volume) 151 mmol/L 135-145 Serum or plasma potassium measurement (moles/volume) 4.5 mmol/L 3.6-5.0 Serum or plasma chloride measurement (moles/volume) 111 mmol/L 98-107 Carbon dioxide 28 mmol/L 21-32 Serum or plasma anion gap determination (moles/volume) 12 mmol/L 5-14 Serum or plasma urea nitrogen measurement (mass/volume) 20 mg/dL 7-18 Serum or plasma creatinine measurement (mass/volume) 0.66 mg/dL 0.60-1.30 Serum or plasma urea nitrogen/creatinine mass ratio 30 NRG Serum or plasma creatinine measurement with calculation of estimated glomerular filtration rate > NRG Serum or plasma glucose measurement (mass/volume) 87 mg/dL 70-105 Serum or plasma calcium measurement (mass/volume) 7.7 mg/dL 8.5-10.1 Serum or plasma total bilirubin measurement (mass/volume) 0.4 mg/dL 0.1-1.0 Serum or plasma alkaline phosphatase measurement (enzymatic activity/volume) 72 U/L 40-136 Serum or plasma aspartate aminotransferase measurement (enzymatic activity/volume) 25 U/L 5-34 Serum or plasma alanine aminotransferase measurement (enzymatic activity/volume) 22 U/L 0-55 Serum or plasma protein measurement (mass/volume) 5.7 g/dL 6.4-8.2 Serum or plasma albumin measurement (mass/volume) 2.9 g/dL 3.2-4.5 Serum or plasma C reactive protein measurement (mass/volume) - 03/26/17 05:20 Serum or plasma C reactive protein measurement (mass/volume) 12.26 mg/dL 0.00-0.50 Arterial blood gas measurement - 03/27/17 07:48 Blood pCO2 94 mm[Hg] 35-45 Blood pO2 118 mm[Hg] 79-93 Arterial blood bicarbonate measurement (moles/volume) 35 mmol/L 23-27 Arterial blood base excess by calculation 6.8 mmol/L -2.5-2.5 Arterial blood oxygen saturation measurement 98 % 94-100 * Inhaled oxygen flow rate 15 NRG Arterial blood pH measurement with patient temperature correction 7.19 7.37-7.43 Arterial blood carbon dioxide, total measurement (moles/volume) 37.4 mmol/L 21.0-31.0 Body site L RAD NRG Assessment of wrist artery patency prior to arterial puncture YES-POS NRG Setting of ventilation mode NO NRG Measurement of body temperature 99.1 NRG Complete blood count (CBC) with automated white blood cell (WBC) differential - 03/27/17 08:00 Blood leukocytes automated count (number/volume) 9.2 10*3/uL 4.3-11.0 Blood erythrocytes automated count (number/volume) 4.56 10*6/uL 4.35-5.85 Venous blood hemoglobin measurement (mass/volume) 12.0 g/dL 13.3-17.7 Blood hematocrit (volume fraction) 39 % 40-54 Automated erythrocyte mean corpuscular volume 85 [foz_us] 80-99 Automated erythrocyte mean corpuscular hemoglobin (mass per erythrocyte) 26 pg 25-34 Automated erythrocyte mean corpuscular hemoglobin concentration measurement (mass/volume) 31 g/dL 32-36 Automated erythrocyte distribution width ratio 18.7 % 10.0- 14.5 Automated blood platelet count (count/volume) 224 10*3/uL 130-400 Automated blood platelet mean volume measurement 9.8 [foz_us] 7.4-10.4 Automated blood neutrophils/100 leukocytes 66 % 42-75 Automated blood lymphocytes/100 leukocytes 24 % 12-44 Blood monocytes/100 leukocytes 9 % 0-12 Automated blood eosinophils/100 leukocytes 1 % 0-10 Automated blood basophils/100 leukocytes 0 % 0-10 Blood neutrophils automated count (number/volume) 6.1 10*3 1.8-7.8 Blood lymphocytes automated count (number/volume) 2.2 10*3 1.0-4.0 Blood monocytes automated count (number/volume) 0.8 10*3 0.0- 1.0 Automated eosinophil count 0.1 10*3/uL 0.0-0.3 Automated blood basophil count (count/volume) 0.0 10*3/uL 0.0-0.1 Whole blood basic metabolic panel - 03/27/17 08:00 Serum or plasma sodium measurement (moles/volume) 145 mmol/L 135-145 Serum or plasma potassium measurement (moles/volume) 4.7 mmol/L 3.6-5.0 Serum or plasma chloride measurement (moles/volume) 105 mmol/L 98-107 Carbon dioxide 34 mmol/L 21-32 Serum or plasma anion gap determination (moles/volume) 6 mmol/L 5-14 Serum or plasma urea nitrogen measurement (mass/volume) 9 mg/dL 7-18 Serum or plasma creatinine measurement (mass/volume) 0.60 mg/dL 0.60-1.30 Serum or plasma urea nitrogen/creatinine mass ratio 15 NRG Serum or plasma creatinine measurement with calculation of estimated glomerular filtration rate > NRG Serum or plasma glucose measurement (mass/volume) 119 mg/dL 70-105 Serum or plasma calcium measurement (mass/volume) 7.8 mg/dL 8.5-10.1 Serum or plasma phosphate measurement (mass/volume) - 03/27/17 08:00 Serum or plasma phosphate measurement (mass/volume) 3.5 mg/dL 2.3-4.7 Magnesium - 03/27/17 08:00 Magnesium 2.3 mg/dL 1.8-2.4 Sputum Gram stain - 03/27/17 08:30 Sputum Gram stain Numerous WBC, scant mixed bacterial benjamín NRG Bacterial sputum culture - 03/27/17 08:30 Bacterial sputum culture NORMAL NRG Sputum Gram stain - 03/27/17 09:46 Sputum Gram stain Few WBC's, ciliated epithelial cells, no bacteria NRG Bacteria identification in bronchial specimen by aerobe culture - 03/27/17 09:46 Bacteria identification in bronchial specimen by aerobe culture NG NRG Arterial blood gas measurement - 03/27/17 12:10 Blood pCO2 53 mm[Hg] 35-45 Blood pO2 178 mm[Hg] 79-93 Arterial blood bicarbonate measurement (moles/volume) 32 mmol/L 23-27 Arterial blood base excess by calculation 7.5 mmol/L -2.5-2.5 Arterial blood oxygen saturation measurement 99 % 94-100 * Inhaled oxygen flow rate 80% NRG Arterial blood pH measurement with patient temperature correction 7.40 7.37-7.43 Arterial blood carbon dioxide, total measurement (moles/volume) 33.9 mmol/L 21.0-31.0 Body site R RAD NRG Assessment of wrist artery patency prior to arterial puncture YES-POS NRG Setting of ventilation mode YES NRG Measurement of body temperature 98.7 NRG Complete blood count (CBC) with automated white blood cell (WBC) differential - 03/28/17 03:26 Blood leukocytes automated count (number/volume) 9.5 10*3/uL 4.3-11.0 Blood erythrocytes automated count (number/volume) 4.02 10*6/uL 4.35-5.85 Venous blood hemoglobin measurement (mass/volume) 10.4 g/dL 13.3-17.7 Blood hematocrit (volume fraction) 33 % 40-54 Automated erythrocyte mean corpuscular volume 83 [foz_us] 80-99 Automated erythrocyte mean corpuscular hemoglobin (mass per erythrocyte) 26 pg 25-34 Automated erythrocyte mean corpuscular hemoglobin concentration measurement (mass/volume) 31 g/dL 32-36 Automated erythrocyte distribution width ratio 17.9 % 10.0- 14.5 Automated blood platelet count (count/volume) 210 10*3/uL 130-400 Automated blood platelet mean volume measurement 9.8 [foz_us] 7.4-10.4 Automated blood neutrophils/100 leukocytes 58 % 42-75 Automated blood lymphocytes/100 leukocytes 31 % 12-44 Blood monocytes/100 leukocytes 9 % 0-12 Automated blood eosinophils/100 leukocytes 1 % 0-10 Automated blood basophils/100 leukocytes 0 % 0-10 Blood neutrophils automated count (number/volume) 5.5 10*3 1.8-7.8 Blood lymphocytes automated count (number/volume) 3.0 10*3 1.0-4.0 Blood monocytes automated count (number/volume) 0.9 10*3 0.0- 1.0 Automated eosinophil count 0.1 10*3/uL 0.0-0.3 Automated blood basophil count (count/volume) 0.0 10*3/uL 0.0-0.1 Serum or plasma phosphate measurement (mass/volume) - 03/28/17 03:26 Serum or plasma phosphate measurement (mass/volume) 2.6 mg/dL 2.3-4.7 Whole blood basic metabolic panel - 03/28/17 03:26 Serum or plasma sodium measurement (moles/volume) 141 mmol/L 135-145 Serum or plasma potassium measurement (moles/volume) 3.9 mmol/L 3.6-5.0 Serum or plasma chloride measurement (moles/volume) 105 mmol/L 98-107 Carbon dioxide 24 mmol/L 21-32 Serum or plasma anion gap determination (moles/volume) 12 mmol/L 5-14 Serum or plasma urea nitrogen measurement (mass/volume) 8 mg/dL 7-18 Serum or plasma creatinine measurement (mass/volume) 0.56 mg/dL 0.60-1.30 Serum or plasma urea nitrogen/creatinine mass ratio 14 NRG Serum or plasma creatinine measurement with calculation of estimated glomerular filtration rate > NRG Serum or plasma glucose measurement (mass/volume) 77 mg/dL 70-105 Serum or plasma calcium measurement (mass/volume) 7.6 mg/dL 8.5-10.1 Magnesium - 03/28/17 03:26 Magnesium 2.0 mg/dL 1.8-2.4 Arterial blood gas measurement - 03/28/17 04:35 Blood pCO2 42 mm[Hg] 35-45 Blood pO2 54 mm[Hg] 79-93 Arterial blood bicarbonate measurement (moles/volume) 30 mmol/L 23-27 Arterial blood base excess by calculation 5.8 mmol/L -2.5-2.5 Arterial blood oxygen saturation measurement 90 % 94-100 * Inhaled oxygen flow rate 45% FIO2 NRG Arterial blood pH measurement with patient temperature correction 7.46 7.37-7.43 Arterial blood carbon dioxide, total measurement (moles/volume) 30.9 mmol/L 21.0-31.0 Body site R RAD NRG Assessment of wrist artery patency prior to arterial puncture YES-POS NRG Setting of ventilation mode YES NRG Measurement of body temperature 98.7 NRG Capillary blood glucose measurement by glucometer (mass/volume) - 03/28/17 10:58 Capillary blood glucose measurement by glucometer (mass/volume) 82 mg/dL 70-110 Whole blood basic metabolic panel - 03/29/17 04:02 Serum or plasma sodium measurement (moles/volume) 142 mmol/L 135-145 Serum or plasma potassium measurement (moles/volume) 4.1 mmol/L 3.6-5.0 Serum or plasma chloride measurement (moles/volume) 107 mmol/L 98-107 Carbon dioxide 18 mmol/L 21-32 Serum or plasma anion gap determination (moles/volume) 17 mmol/L 5-14 Serum or plasma urea nitrogen measurement (mass/volume) 6 mg/dL 7-18 Serum or plasma creatinine measurement (mass/volume) 0.55 mg/dL 0.60-1.30 Serum or plasma urea nitrogen/creatinine mass ratio 11 NRG Serum or plasma creatinine measurement with calculation of estimated glomerular filtration rate > NRG Serum or plasma glucose measurement (mass/volume) 91 mg/dL 70-105 Serum or plasma calcium measurement (mass/volume) 7.9 mg/dL 8.5-10.1 Magnesium - 03/29/17 04:02 Magnesium 1.7 mg/dL 1.8-2.4 Serum or plasma phosphate measurement (mass/volume) - 03/29/17 04:02 Serum or plasma phosphate measurement (mass/volume) 3.5 mg/dL 2.3-4.7 Arterial blood gas measurement - 03/29/17 04:14 Blood pCO2 45 mm[Hg] 35-45 Blood pO2 55 mm[Hg] 79-93 Arterial blood bicarbonate measurement (moles/volume) 28 mmol/L 23-27 Arterial blood base excess by calculation 3.6 mmol/L -2.5-2.5 Arterial blood oxygen saturation measurement 88 % 94-100 * Inhaled oxygen flow rate 45% NRG Arterial blood pH measurement with patient temperature correction 7.41 7.37-7.43 Arterial blood carbon dioxide, total measurement (moles/volume) 29.5 mmol/L 21.0-31.0 Body site L RAD NRG Assessment of wrist artery patency prior to arterial puncture YES-POS NRG Setting of ventilation mode YES NRG Measurement of body temperature 97.6 NRG Complete blood count (CBC) with automated white blood cell (WBC) differential - 03/29/17 05:22 Blood leukocytes automated count (number/volume) 9.8 10*3/uL 4.3-11.0 Blood erythrocytes automated count (number/volume) 4.57 10*6/uL 4.35-5.85 Venous blood hemoglobin measurement (mass/volume) 12.0 g/dL 13.3-17.7 Blood hematocrit (volume fraction) 37 % 40-54 Automated erythrocyte mean corpuscular volume 80 [foz_us] 80-99 Automated erythrocyte mean corpuscular hemoglobin (mass per erythrocyte) 26 pg 25-34 Automated erythrocyte mean corpuscular hemoglobin concentration measurement (mass/volume) 33 g/dL 32-36 Automated erythrocyte distribution width ratio 17.9 % 10.0- 14.5 Automated blood platelet count (count/volume) 243 10*3/uL 130-400 Automated blood platelet mean volume measurement 9.8 [foz_us] 7.4-10.4 Automated blood neutrophils/100 leukocytes 63 % 42-75 Automated blood lymphocytes/100 leukocytes 26 % 12-44 Blood monocytes/100 leukocytes 9 % 0-12 Automated blood eosinophils/100 leukocytes 1 % 0-10 Automated blood basophils/100 leukocytes 1 % 0-10 Blood neutrophils automated count (number/volume) 6.2 10*3 1.8-7.8 Blood lymphocytes automated count (number/volume) 2.5 10*3 1.0-4.0 Blood monocytes automated count (number/volume) 0.9 10*3 0.0- 1.0 Automated eosinophil count 0.1 10*3/uL 0.0-0.3 Automated blood basophil count (count/volume) 0.1 10*3/uL 0.0-0.1 Blood lactic acid measurement (moles/volume) - 03/29/17 09:10 Blood lactic acid measurement (moles/volume) 0.68 mmol/L 0.50- 2.00 Complete urinalysis with reflex to culture - 03/29/17 18:21 Urine color determination YELLOW NRG Urine clarity determination CLEAR NRG Urine pH measurement by test strip 8 5-9 Specific gravity of urine by test strip 1.010 1.016-1.022 Urine protein assay by test strip, semi-quantitative [...] sediment leukocyte count by microscopy (number/high power field) NONE NRG Bacteria detection in urine sediment by light microscopy NEGATIVE NRG Squamous epithelial cells detection in urine sediment by light microscopy NONE NRG Crystals detection in urine sediment by light microscopy NONE NRG Casts detection in urine sediment by light microscopy NONE NRG Mucus detection in urine sediment by light microscopy NEGATIVE NRG Complete urinalysis with reflex to culture NO NRG Complete blood count (CBC) with automated white blood cell (WBC) differential - 03/30/17 04:30 Blood leukocytes automated count (number/volume) 11.3 10*3/uL 4.3-11.0 Blood erythrocytes automated count (number/volume) 4.86 10*6/uL 4.35-5.85 Venous blood hemoglobin measurement (mass/volume) 12.7 g/dL 13.3-17.7 Blood hematocrit (volume fraction) 39 % 40-54 Automated erythrocyte mean corpuscular volume 80 [foz_us] 80-99 Automated erythrocyte mean corpuscular hemoglobin (mass per erythrocyte) 26 pg 25-34 Automated erythrocyte mean corpuscular hemoglobin concentration measurement (mass/volume) 33 g/dL 32-36 Automated erythrocyte distribution width ratio 17.6 % 10.0- 14.5 Automated blood platelet count (count/volume) 261 10*3/uL 130-400 Automated blood platelet mean volume measurement 9.6 [foz_us] 7.4-10.4 Automated blood neutrophils/100 leukocytes 67 % 42-75 Automated blood lymphocytes/100 leukocytes 20 % 12-44 Blood monocytes/100 leukocytes 12 % 0-12 Automated blood eosinophils/100 leukocytes 1 % 0-10 Automated blood basophils/100 leukocytes 0 % 0-10 Blood neutrophils automated count (number/volume) 7.6 10*3 1.8-7.8 Blood lymphocytes automated count (number/volume) 2.2 10*3 1.0-4.0 Blood monocytes automated count (number/volume) 1.3 10*3 0.0- 1.0 Automated eosinophil count 0.1 10*3/uL 0.0-0.3 Automated blood basophil count (count/volume) 0.1 10*3/uL 0.0-0.1 Whole blood basic metabolic panel - 03/30/17 04:30 Serum or plasma sodium measurement (moles/volume) 139 mmol/L 135-145 Serum or plasma potassium measurement (moles/volume) 3.6 mmol/L 3.6-5.0 Serum or plasma chloride measurement (moles/volume) 100 mmol/L 98-107 Carbon dioxide 27 mmol/L 21-32 Serum or plasma anion gap determination (moles/volume) 12 mmol/L 5-14 Serum or plasma urea nitrogen measurement (mass/volume) 6 mg/dL 7-18 Serum or plasma creatinine measurement (mass/volume) 0.54 mg/dL 0.60-1.30 Serum or plasma urea nitrogen/creatinine mass ratio 11 NRG Serum or plasma creatinine measurement with calculation of estimated glomerular filtration rate > NRG Serum or plasma glucose measurement (mass/volume) 99 mg/dL 70-105 Serum or plasma calcium measurement (mass/volume) 8.6 mg/dL 8.5-10.1 Serum or plasma phosphate measurement (mass/volume) - 03/30/17 04:30 Serum or plasma phosphate measurement (mass/volume) 3.8 mg/dL 2.3-4.7 Magnesium - 03/30/17 04:30 Magnesium 1.6 mg/dL 1.8-2.4 Complete blood count (CBC) with automated white blood cell (WBC) differential - 03/31/17 07:54 Blood leukocytes automated count (number/volume) 13.5 10*3/uL 4.3-11.0 Blood erythrocytes automated count (number/volume) 5.40 10*6/uL 4.35-5.85 Venous blood hemoglobin measurement (mass/volume) 14.0 g/dL 13.3-17.7 Blood hematocrit (volume fraction) 42 % 40-54 Automated erythrocyte mean corpuscular volume 77 [foz_us] 80-99 Automated erythrocyte mean corpuscular hemoglobin (mass per erythrocyte) 26 pg 25-34 Automated erythrocyte mean corpuscular hemoglobin concentration measurement (mass/volume) 34 g/dL 32-36 Automated erythrocyte distribution width ratio 17.6 % 10.0- 14.5 Automated blood platelet count (count/volume) 299 10*3/uL 130-400 Automated blood platelet mean volume measurement 9.9 [foz_us] 7.4-10.4 Automated blood neutrophils/100 leukocytes 74 % 42-75 Automated blood lymphocytes/100 leukocytes 15 % 12-44 Blood monocytes/100 leukocytes 10 % 0-12 Automated blood eosinophils/100 leukocytes 1 % 0-10 Automated blood basophils/100 leukocytes 0 % 0-10 Blood neutrophils automated count (number/volume) 10.0 10*3 1.8-7.8 Blood lymphocytes automated count (number/volume) 2.0 10*3 1.0-4.0 Blood monocytes automated count (number/volume) 1.4 10*3 0.0- 1.0 Automated eosinophil count 0.1 10*3/uL 0.0-0.3 Automated blood basophil count (count/volume) 0.1 10*3/uL 0.0-0.1 Whole blood basic metabolic panel - 03/31/17 07:54 Serum or plasma sodium measurement (moles/volume) 138 mmol/L 135-145 Serum or plasma potassium measurement (moles/volume) 3.7 mmol/L 3.6-5.0 Serum or plasma chloride measurement (moles/volume) 100 mmol/L 98-107 Carbon dioxide 23 mmol/L 21-32 Serum or plasma anion gap determination (moles/volume) 15 mmol/L 5-14 Serum or plasma urea nitrogen measurement (mass/volume) 9 mg/dL 7-18 Serum or plasma creatinine measurement (mass/volume) 0.64 mg/dL 0.60-1.30 Serum or plasma urea nitrogen/creatinine mass ratio 14 NRG Serum or plasma creatinine measurement with calculation of estimated glomerular filtration rate > NRG Serum or plasma glucose measurement (mass/volume) 83 mg/dL 70-105 Serum or plasma calcium measurement (mass/volume) 9.5 mg/dL 8.5-10.1 Complete blood count (CBC) with automated white blood cell (WBC) differential - 04/01/17 05:40 Blood leukocytes automated count (number/volume) 8.9 10*3/uL 4.3-11.0 Blood erythrocytes automated count (number/volume) 5.04 10*6/uL 4.35-5.85 Venous blood hemoglobin measurement (mass/volume) 13.2 g/dL 13.3-17.7 Blood hematocrit (volume fraction) 39 % 40-54 Automated erythrocyte mean corpuscular volume 77 [foz_us] 80-99 Automated erythrocyte mean corpuscular hemoglobin (mass per erythrocyte) 26 pg 25-34 Automated erythrocyte mean corpuscular hemoglobin concentration measurement (mass/volume) 34 g/dL 32-36 Automated erythrocyte distribution width ratio 17.4 % 10.0- 14.5 Automated blood platelet count (count/volume) 313 10*3/uL 130-400 Automated blood platelet mean volume measurement 9.9 [foz_us] 7.4-10.4 Automated blood neutrophils/100 leukocytes 60 % 42-75 Automated blood lymphocytes/100 leukocytes 24 % 12-44 Blood monocytes/100 leukocytes 14 % 0-12 Automated blood eosinophils/100 leukocytes 2 % 0-10 Automated blood basophils/100 leukocytes 0 % 0-10 Blood neutrophils automated count (number/volume) 5.3 10*3 1.8-7.8 Blood lymphocytes automated count (number/volume) 2.2 10*3 1.0-4.0 Blood monocytes automated count (number/volume) 1.2 10*3 0.0- 1.0 Automated eosinophil count 0.2 10*3/uL 0.0-0.3 Automated blood basophil count (count/volume) 0.0 10*3/uL 0.0-0.1 Whole blood basic metabolic panel - 04/01/17 05:40 Serum or plasma sodium measurement (moles/volume) 137 mmol/L 135-145 Serum or plasma potassium measurement (moles/volume) 3.5 mmol/L 3.6-5.0 Serum or plasma chloride measurement (moles/volume) 100 mmol/L 98-107 Carbon dioxide 26 mmol/L 21-32 Serum or plasma anion gap determination (moles/volume) 11 mmol/L 5-14 Serum or plasma urea nitrogen measurement (mass/volume) 9 mg/dL 7-18 Serum or plasma creatinine measurement (mass/volume) 0.67 mg/dL 0.60-1.30 Serum or plasma urea nitrogen/creatinine mass ratio 13 NRG Serum or plasma creatinine measurement with calculation of estimated glomerular filtration rate > NRG Serum or plasma glucose measurement (mass/volume) 138 mg/dL 70-105 Serum or plasma calcium measurement (mass/volume) 9.1 mg/dL 8.5-10.1 Complete blood count (CBC) with automated white blood cell (WBC) differential - 04/02/17 04:50 Blood leukocytes automated count (number/volume) 8.2 10*3/uL 4.3-11.0 Blood erythrocytes automated count (number/volume) 4.77 10*6/uL 4.35-5.85 Venous blood hemoglobin measurement (mass/volume) 12.5 g/dL 13.3-17.7 Blood hematocrit (volume fraction) 37 % 40-54 Automated erythrocyte mean corpuscular volume 78 [foz_us] 80-99 Automated erythrocyte mean corpuscular hemoglobin (mass per erythrocyte) 26 pg 25-34 Automated erythrocyte mean corpuscular hemoglobin concentration measurement (mass/volume) 34 g/dL 32-36 Automated erythrocyte distribution width ratio 17.2 % 10.0- 14.5 Automated blood platelet count (count/volume) 333 10*3/uL 130-400 Automated blood platelet mean volume measurement 10.5 [foz_us] 7.4-10.4 Automated blood neutrophils/100 leukocytes 57 % 42-75 Automated blood lymphocytes/100 leukocytes 26 % 12-44 Blood monocytes/100 leukocytes 14 % 0-12 Automated blood eosinophils/100 leukocytes 2 % 0-10 Automated blood basophils/100 leukocytes 1 % 0-10 Blood neutrophils automated count (number/volume) 4.7 10*3 1.8-7.8 Blood lymphocytes automated count (number/volume) 2.2 10*3 1.0-4.0 Blood monocytes automated count (number/volume) 1.2 10*3 0.0- 1.0 Automated eosinophil count 0.2 10*3/uL 0.0-0.3 Automated blood basophil count (count/volume) 0.1 10*3/uL 0.0-0.1 Whole blood basic metabolic panel - 04/02/17 04:50 Serum or plasma sodium measurement (moles/volume) 138 mmol/L 135-145 Serum or plasma potassium measurement (moles/volume) 3.8 mmol/L 3.6-5.0 Serum or plasma chloride measurement (moles/volume) 101 mmol/L 98-107 Carbon dioxide 26 mmol/L 21-32 Serum or plasma anion gap determination (moles/volume) 11 mmol/L 5-14 Serum or plasma urea nitrogen measurement (mass/volume) 14 mg/dL 7-18 Serum or plasma creatinine measurement (mass/volume) 0.64 mg/dL 0.60-1.30 Serum or plasma urea nitrogen/creatinine mass ratio 22 NRG Serum or plasma creatinine measurement with calculation of estimated glomerular filtration rate > NRG Serum or plasma glucose measurement (mass/volume) 104 mg/dL 70-105 Serum or plasma calcium measurement (mass/volume) 8.8 mg/dL 8.5-10.1 Influenza virus A and B antigen detection - 04/03/17 08:58 FLU RESULT NEGATIVE FOR INFLUENZA A AND B ANTIGENS BY IA NRG Encounters ACCT No. Visit Date/Time Discharge Status Pt. Type Provider Facility Loc./Unit Complaint [id number] 06/13/2014 13:49:00 06/13/2014 23:59:59 CLS Outpatient CLAUS MCDONALD APRN [id number] 03/16/2014 12:55:00 03/16/2014 23:59:59 CLS Outpatient CLAUS MCDONALD APRN [id number] 03/16/2014 12:55:00 03/16/2014 23:59:59 CLS Outpatient CLAUS MCDONALD APRN [id number] 03/10/2014 13:51:00 03/10/2014 23:59:59 CLS Outpatient MAIKEL CASANOVA DDS [id number] 12/15/2013 09:59:00 12/15/2013 23:59:59 CLS Outpatient CLAUS MCDONALD APRN [id number] 12/15/2013 09:59:00 12/15/2013 23:59:59 CLS Outpatient CLAUS MCDONALD APRN [id number] 11/01/2013 11:59:00 11/01/2013 23:59:59 CLS Outpatient CLAUS MCDONALD APRN [id number] 11/01/2013 11:59:00 11/01/2013 23:59:59 CLS Outpatient CLAUS MCDONALD APRN [id number] 09/27/2013 09:01:00 09/27/2013 23:59:59 CLS Outpatient CLAUS MCDONALD APRN [id number] 09/27/2013 09:01:00 09/27/2013 23:59:59 CLS Outpatient CLAUS MCDONALD APRN [id number] 08/25/2013 10:04:00 08/25/2013 23:59:59 CLS Outpatient CLAUS MCDONALD APRN [id number] 04/28/2013 11:00:00 04/28/2013 23:59:59 CLS Outpatient KYLE WADDELL MD [id number] 04/28/2013 11:00:00 04/28/2013 23:59:59 CLS Outpatient JALEESA SERRATO JR [id number] 02/11/2013 09:18:00 02/11/2013 23:59:59 CLS Outpatient MERT SINGH DO [id number] 01/26/2013 10:59:00 01/26/2013 23:59:59 CLS Outpatient JALEESA SERRATO JR [id number] 01/26/2013 10:59:00 01/26/2013 23:59:59 CLS Outpatient KYLE WADDELL MD [id number] 11/02/2012 13:16:00 11/02/2012 23:59:59 CLS Outpatient JOSSE OWENS APRN [id number] 05/24/2012 15:30:00 05/24/2012 23:59:59 CLS Outpatient JOSSE OWENS APRN [id number] 02/23/2012 13:36:00 02/23/2012 23:59:59 CLS Outpatient SHEA ZAMUDIO DO [id number] 01/27/2012 10:05:00 01/27/2012 23:59:59 CLS Outpatient PALAK BARON DDS [id number] 12/23/2011 13:13:00 12/23/2011 23:59:59 CLS Outpatient SHEA ZAMUDIO DO [id number] 09/08/2012 12:28:00 Document Registration [id number] 07/23/2012 09:58:00 Document Registration [id number] 07/22/2012 16:08:00 Document Registration [id number] 06/22/2012 13:57:00 Document Registration [id number] 06/22/2012 13:57:00 Document Registration [id number] 05/24/2012 15:30:00 Document Registration [id number] 03/12/2018 10:00:00 03/12/2018 23:59:59 CLS Outpatient NAWAF CELIS MD [facility] RAD DYSPHAGIA [id number] 04/01/2017 09:34:00 04/06/2017 14:15:00 DIS Inpatient MENG UNDERWOOD, CYNTHIA Posadas [facility] 4TH SWB,SEPSIS,BILAT PNUEMONIA, HYPOXIS,HYPERNATERMIA [id number] 03/25/2017 14:30:00 04/01/2017 09:11:00 DIS Outpatient MENG UNDERWOOD, CYNTHIA Posadas [facility] 4TH SEPSIS,BILAT PNEUMONIA,HYPOXIS,HYPERNATREMIA [id number] 03/13/2017 08:29:00 03/13/2017 23:59:59 CLS Outpatient HUGO LUCIO DO [facility] RAD ALTERED MENTAL STATUS;FALLS;DIZZINESS [id number] 03/05/2017 20:36:00 03/06/2017 00:33:00 DIS Emergency VICKI GARCES MD [facility] ER CONFUSION [id number] 12/07/2016 03:20:00 12/07/2016 04:51:00 DIS Emergency SHAWN GAITAN MD [facility] ER CONFUSION [id number] 10/31/2015 05:28:00 10/31/2015 07:30:00 DIS Emergency TEOFILO JOHNSON DO [facility] ER POSSIBLE SEIZURE [id number] 08/17/2013 21:53:00 08/18/2013 00:33:00 DIS Emergency SHAWN GAITAN MD [facility] ER SEIZURE [id number] 02/02/2013 06:37:00 02/02/2013 09:35:00 DIS Emergency [id number] 03/05/2017 21:50:00 Document Registration [id number] 09/14/2018 13:20:00 09/14/2018 23:59:59 [facility] Outpatient [facility]
[2018-09-29 18:00] LABS: BASOPHILS % (AUTO) 1 % (0-10); EOSINOPHILS # (AUTO) 0.2 10^3/uL (0.0-0.3); EOSINOPHILS % (AUTO) 2 % (0-10); HEMATOCRIT 40 % (40-54); HEMOGLOBIN 13.2 G/DL (13.3-17.7); LYMPHOCYTES # (AUTO) 3.3 X 10^3 (1.0-4.0); LYMPHOCYTES % (AUTO) 37 % (12-44); MEAN CORPUSCULAR HEMOGLOBIN 27 PG (25-34); MEAN CORPUSCULAR HGB CONC 33 G/DL (32-36); MEAN CORPUSCULAR VOLUME 81 FL (80-99); MEAN PLATELET VOLUME 9.4 FL (7.4-10.4); MONOCYTES # (AUTO) 0.8 X 10^3 (0.0-1.0); MONOCYTES % (AUTO) 9 % (0-12); NEUTROPHILS # (AUTO) 4.5 X 10^3 (1.8-7.8); NEUTROPHILS % (AUTO) 51 % (42-75); PLATELET COUNT 211 10^3/uL (130-400); WHITE BLOOD COUNT 8.7 10^3/uL (4.3-11.0)
[2018-09-29 18:20] LABS: ALANINE AMINOTRANSFERASE 15 U/L (0-55); ALBUMIN 4.4 GM/DL (3.2-4.5); ALKALINE PHOSPHATASE 52 U/L (40-136); BILIRUBIN,TOTAL 0.3 MG/DL (0.1-1.0); BUN/CREATININE RATIO 11; CALCIUM 9.3 MG/DL (8.5-10.1); CARBON DIOXIDE 21 MMOL/L (21-32); CHLORIDE 97 MMOL/L (98-107); CREATININE SERUM 0.92 MG/DL (0.60-1.30); GFR ESTIMATED > 60; GLUCOSE 165 MG/DL (70-105); POTASSIUM 4.2 MMOL/L (3.6-5.0); SODIUM 133 MMOL/L (135-145)
--- NOTE | 2018-09-29 18:51 | NUR ---
PT HAS BEEN CALM AND RELAXED HIS ENTIRE VISIT SO FAR HERE IN THE ER.
[2018-09-29 19:08] LABS: BILIRUBIN,URINE NEGATIVE (NEGATIVE); CLARITY,URINE CLEAR; COLOR,URINE YELLOW; GLUCOSE, URINE (UA) NEGATIVE (NEGATIVE); KETONES,URINE NEGATIVE (NEGATIVE); LEUKOCYTE ESTERASE ,URINE NEGATIVE (NEGATIVE); NITRITE,URINE NEGATIVE (NEGATIVE); PH,URINE 7 (5-9); PROTEIN,URINE NEGATIVE (NEGATIVE); UROBILINOGEN,URINE NORMAL (NORMAL)
[2018-09-29 19:10] VITALS: BP 140/100
[2018-09-29 19:20] LABS: BACTERIA,URINE NEGATIVE /HPF; RBC,URINE RARE /HPF; SQUAMOUS EPITHELIAL CELL,UR RARE /HPF
== END 2018-09-29 19:10 | disposition home or self-care (01) ==
LOC: EDUNIT# 17:28 → ER 17:28
DX: F79 Unspecified intellectual disabilities (principal); R45.1 Restlessness and agitation; F20.0 Paranoid schizophrenia; G40.909 Epilepsy, unspecified, not intractable, without status epilepticus; I10 Essential (primary) hypertension; E78.00 Pure hypercholesterolemia, unspecified; K21.9 Gastro-esophageal reflux disease without esophagitis; Z87.19 Personal history of other diseases of the digestive system; Z87.01 Personal history of pneumonia (recurrent); Z88.8 Allergy status to other drugs, medicaments and biological substances
CPT/HCPCS: 36415; 80053; 81000; 84443; 85025; 99283

== ENCOUNTER 2018-11-24 08:10 | Inpatient (IN) | payer MEDICARE, MEDICAID ==
[~2018-11-24] VITALS: Ht 175.3 cm; Wt 96.0 kg
[2018-11-24] VITALS (17 sets, daily range): BP systolic 87–167; BP diastolic 55–138
--- NOTE | 2018-11-24 08:17 | NUR ---
ETOMIDATE 20MG GIVEN IN PREP FOR INTUBATION.
--- NOTE | 2018-11-24 08:19 | NUR ---
SUCCINYLCHOLINE 100MG GIVEN IV IN PREP FOR INTUBATION.
--- NOTE | 2018-11-24 08:20 | NUR ---
RT BAGGING IN PREP FOR INTUBATION.
--- NOTE | 2018-11-24 08:21 | NUR ---
POSITIVE COLOR CHANGE, POSITIVE BILAT BREATH SOUNDS AFTER ETT PLACED. VS BP 126/98, PULSE 112, ET PULSE OX 97% BAGGING BY RT.
[2018-11-24] MEDS ORDERED: LACTATED RINGERS 1,000 ML IV ONE ×2 (08:29)
--- NOTE | 2018-11-24 08:35 | NUR ---
VERSED 2.5MG ET FENTENYL 50MCG IV GIVEN.
--- NOTE | 2018-11-24 08:36 | NUR ---
ROCURONIUM 50MG IV GIVEN DUE TO PT BITING AT THE TUBE.
--- NOTE | 2018-11-24 08:37 | NUR ---
VERSED 2.5MG IV GIVEN DUE TO PT BITING THE TUBE. Addendum: 11/24/18 at 09 by JOSAFAT SEE RTs CHARTING FOR VENT SETTINGS THAT KEEP CHANGING DUE TO ETCO2.
--- NOTE | 2018-11-24 08:38 | NUR ---
DR BLAKE FOR CENTRAL LINE PLACEMENT AT THIS TIME.
[2018-11-24 08:39] LABS: BASOPHILS # (AUTO) 0.1 10^3/uL (0.0-0.1); BASOPHILS % (AUTO) 1 % (0-10); EOSINOPHILS % (AUTO) 0 % (0-10); HEMATOCRIT 41 % (40-54); LYMPHOCYTES # (AUTO) 1.6 X 10^3 (1.0-4.0); LYMPHOCYTES % (AUTO) 10 % (12-44); MEAN CORPUSCULAR HEMOGLOBIN 26 PG (25-34); MEAN CORPUSCULAR HGB CONC 30 G/DL (32-36); MEAN CORPUSCULAR VOLUME 88 FL (80-99); MEAN PLATELET VOLUME 9.6 FL (7.4-10.4); MONOCYTES # (AUTO) 2.1 X 10^3 (0.0-1.0); MONOCYTES % (AUTO) 13 % (0-12); NEUTROPHILS # (AUTO) 11.9 X 10^3 (1.8-7.8); NEUTROPHILS % (AUTO) 76 % (42-75); PLATELET COUNT 285 10^3/uL (130-400); RED CELL DISTRIBUTION WIDTH 17.3 % (10.0-14.5); WHITE BLOOD COUNT 15.7 10^3/uL (4.3-11.0)
[2018-11-24 08:41] LABS: BILIRUBIN,URINE NEGATIVE (NEGATIVE); CLARITY,URINE CLEAR; COLOR,URINE YELLOW; GLUCOSE, URINE (UA) 1+ (NEGATIVE); KETONES,URINE 1+ (NEGATIVE); LEUKOCYTE ESTERASE ,URINE 1+ (NEGATIVE); NITRITE,URINE NEGATIVE (NEGATIVE); PH,URINE 5 (5-9); PROTEIN,URINE 3+ (NEGATIVE); UROBILINOGEN,URINE 1 MG/DL (NORMAL)
[2018-11-24] MEDS: PROPOFOL DRIP (ICU) 100 ML IV SCH ×3 (08:41→16:06)
[2018-11-24 08:44] LABS: ABG BASE EXCESS 3.6 MMOL/L (-2.5-2.5); ABG OXYGEN SATURATION 97 % (94-100); ABG PO2 99 MMHG (79-93)
[2018-11-24 09:01] LABS: BILIRUBIN,TOTAL 0.2 MG/DL (0.1-1.0); CALCIUM 8.6 MG/DL (8.5-10.1); CREATININE SERUM 1.59 MG/DL (0.60-1.30); POTASSIUM 4.8 MMOL/L (3.6-5.0)
[2018-11-24 09:04] LABS: ABG PCO2 77 MMHG (35-45); ABG PH 7.23 (7.37-7.43)
[2018-11-24 09:05] LABS: ALLENS TEST YES-POS; INSPIRED O2 80%; PATIENT TEMP 37; VENTILATOR YES
--- NOTE | 2018-11-24 09:05 | NUR ---
AFTER CHEST XRAY ET PLACED AT 25 AT THE LIP.
[2018-11-24 09:09] LABS: PROTHROMBIN TIME PATIENT 13.9 SEC (12.2-14.7)
[2018-11-24 09:12] LABS: BAND NEUTROPHILS 7 %; LYMPHOCYTES % (MANUAL) 11 %; MONOCYTES % (MANUAL) 11 %; MYELOCYTES % 1 %; NEUTROPHILS % (MANUAL) 70 %; NUCLEATED RED BLOOD CELLS 2
[2018-11-24 09:14] LABS: ANISOCYTOSIS SLIGHT; POLYCHROMASIA SLIGHT; RBC MORPH SEE REFERENCE
[2018-11-24 09:17] LABS: RBC,URINE 25-50 /HPF
[2018-11-24 09:19] LABS: AMORPHOUS SEDIMENT,UR FEW AMOR URATES /LPF; BACTERIA,URINE FEW /HPF
--- NOTE | 2018-11-24 09:22 | Diagnostic Imaging Report ---
INDICATION: Unresponsive, ET tube. TECHNIQUE: Frontal view of the chest. COMPARISON: 03/29/2017 FINDINGS: The endotracheal tube is approximately 5.5 cm from the anibal. The enteric tube crosses the [id number]. The right jugular line tip projects over the low SVC. Lung volumes are low. There are bibasilar airspace opacities, left greater than right. There are perihilar airspace opacities bilaterally. No large effusion or pneumothorax is seen. The cardiomediastinal silhouette is wide, and likely accentuated by the low lung volumes and supine AP technique. IMPRESSION: 1. Tubes and line in expected position. 2. Low lung volumes with bibasilar and perihilar airspace opacities, left greater than right. This may be due to pneumonia or edema. 3. Wide cardiomediastinal silhouette, likely accentuated by the low lung volumes and technique. Recommend followup. Dictated by: Dictated on workstation # [id number]
--- NOTE | 2018-11-24 09:27 | NUR ---
STAFF FROM [facility] HERE TALKING WITH DR NEVAREZ AT THIS TIME.
[2018-11-24] MEDS ORDERED: PIPERACILLIN SODIUM/TAZOBACTAM 4.5 GM in NS (IVPB) 100 ML IV ONE (09:45)
--- NOTE | 2018-11-24 09:45 | NUR ---
DR LOUISEEID OF BP 88/
--- NOTE | 2018-11-24 09:59 | NUR ---
PHARMACY NOTIFIED OF NEEDING LEVOPHED AND MARIA L AUGUST.
[2018-11-24] MEDS ORDERED: NOREPINEPHRINE 4 MG in NS (IVPB) 250 ML IV SCH (10:00)
[2018-11-24] MEDS ORDERED: VANCOMYCIN INJECTION 1,500 MG in NS IV 500 ML 500 ML IV SCH (10:00)
--- NOTE | 2018-11-24 10:14 | ED General ---
General Chief Complaint: Unresponsive Stated Complaint: RESP FAILURE BILAT PNA Nursing Triage Note: EMS CALLED TO [facility] FOR A UNRESPONSIVE PT. UPON THEIR ARRIVAL PT WAS UNRESPONSIVE WITH A PULSE OX OF 57% ON RA. REPORT IS PT WAS SEEN AT [place] YESTERDAY FOR PNEUMONIA. BLOOD SUGAR 219 PER EMS. Nursing Sepsis Screen: Possible Severe Sepsis Risk Source of Information: Patient Exam Limitations: No Limitations History of Present Illness Date Seen by Provider: Nov 24, 2018 Time Seen by Provider: 08:10 Initial Comments Here by EMS with report of altered mental status and respiratory distress. Apparently the patient was seen yesterday at [facility] and found to have diagnosis of bronchitis and sent home. Caregiver's report that he was up and active and moving about but did have a cough yesterday. This morning they checked on him and found him to be unresponsive and called EMS. He has a similar episode about 2 years ago in which she had similar presentation. They state that he goes and goes until he has significant event like this morning. EMS found initial O2 sat of 57% which increased to just above 90 after high flow O2. There were 2 minutes from this location so elected to transport rapidly. They did establish IV and initiated the first liter of normal saline. Blood pressure noted to be normal or elevated. No fever noted or reported. He did have vomitus on his mouth and there is concerns about aspiration. Timing/Duration: 1 Hour Severity: Severe Associated Systoms: Nausea/Vomiting, Shortness of Air Allergies and Home Medications Allergies Coded Allergies: fluoxetine (Verified Allergy, Unknown, 03/05/17) Home Medications Atorvastatin Calcium 20 Mg Tablet, 20 MG PO HS, (Reported) Benztropine Mesylate 1 Mg Tablet, 1 MG PO TID, (Reported) Clonazepam 2 Mg Tablet, 1 MG PO 1500, (Reported) Clonazepam 2 Mg Tablet, 3 MG PO HS, (Reported) Clozapine 100 Mg Tablet, 300 MG PO BID, (Reported) Clozapine 100 Mg Tablet, 200 MG PO 1500, (Reported) Divalproex Sodium 500 Mg Tab.er.24h, 2,000 MG PO DAILY, (Reported) Docusate Sodium 100 Mg Capsule, 100 MG PO BID, (Reported) Folic Acid 1 Mg Tablet, 0.5 MG PO DAILY, (Reported) Haloperidol 2 Mg Tablet, 2 MG PO DAILY, (Reported) Lactulose 10 Gm/15 Ml Solution, 30 ML PO BID, (Reported) Levetiracetam 500 Mg Tablet, 500 MG PO BID, (Reported) Loratadine 10 Mg Tablet, 10 MG PO DAILY, (Reported) Metoprolol Succinate 25 Mg Tab.er.24h, 25 MG PO DAILY, (Reported) [place] 3 Polyunsat Fatty Acids 1,000 Mg Cap, 1,000 MG PO BIDAC, (Reported) Oxybutynin Chloride 5 Mg Tablet, 5 MG PO BID, (Reported) Pantoprazole Sodium 40 Mg Tablet.dr, 40 MG PO DAILY, (Reported) Polyethylene Glycol 3350 17 Gm Powd.pack, 17 GM PO DAILY, (Reported) Quetiapine Fumarate 200 Mg Tablet, 200 MG PO HS, (Reported) Vortioxetine Hydrobromide 10 Mg Tablet, 10 MG PO DAILY, (Reported) Patient Home Medication List Home Medication List Reviewed: Yes Review of Systems Review of Systems Constitutional: see HPI; No fever Respiratory: cough, short of breath Gastrointestinal: vomiting Unable to complete review of systems due to unresponsiveness Past Cuguivs-Xbpzjj-Iumqes Hx Past Med/Social Hx: Reviewed Nursing Past Med/Soc Hx Patient Social History Alcohol Use: Denies Use Recreational Drug Use: No Smoking Status: Current Everyday Smoker Type Used: Cigarettes 2nd Hand Smoke Exposure: No Recent Foreign Travel: No Contact w/Someone Who Travel: No Recent Infectious Disease Expo: No Recent Hopitalizations: No Immunizations Up To Date Tetanus Booster (TDap): More than 5yrs Date of Influenza Vaccine: Dec 06, 2016 Seasonal Allergies Seasonal Allergies: No Past Medical History Surgeries: No (UNKNOWN) Respiratory: Yes (UNKNOWN) Pneumonia Cardiac: Yes High Cholesterol, Hypertension Neurological: Yes Seizure Disorder Genitourinary: No (UNKNOWN) Gastrointestinal: Yes Gastroesophageal Reflux, Chronic Constipation Musculoskeletal: No (UNKNOWN) Endocrine: No (UNKNOWN - PT IS MR) HEENT: No (UNKNOWN) Cancer: No (UNKNOWN) Psychosocial: Yes (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) Schizophrenia, Violent Behavior, Depression Integumentary: Yes Psoriasis Blood Disorders: No (UNKNOWN) Family Medical History Reviewed Nursing Family Hx Patient reports no known family medical history. No Pertinent Family Hx Physical Exam-Suspected Sepsis Physical Exam Vital Signs Vital Signs - First Documented 11/24/18 08:10 Temp 37.1 Pulse 115 Resp 27 B/P (MAP) 167/138 (148) Pulse Ox 93 O2 Delivery Non Rebreather Capillary Refill : Less Than 3 Seconds Blood Pressure Mean: 84 Height, Weight, BMI Height: 5'9.00" Weight: 184lbs. 3.0oz. 83.099900sd; 30.00 BMI Method:Estimated General Appearance: Other (ill appearing and unresponsive and in no distress.) HEENT: PERRL/EOMI, Other (dry mucous membranes with debris in the mouth and posterior pharynx) Neck: Non Tender, Supple Respiratory: Decreased Breath Sounds, Wheezing Cardiovascular: No Murmur, Tachycardia Gastrointestinal: Non Tender, Soft Back: No Muscle Spasm; Other (no obvious injury) Extremity: Normal Capillary Refill, No Pedal Edema Neurologic/Psychiatric: Other (unresponsive) Skin: normal color, warm/dry; No rash, No ulcerations Focused Exam Lactate Level 11/24/18 08:20: Lactic Acid Level 0.92 Lactic Acid Level Laboratory Tests Test 11/24/18 08:20 Lactic Acid Level 0.92 MMOL/L (0.50-2.00) Procedures/Interventions Lumen: triple Central Line Procedure: betadine prep Position: internal jugular (R) Complications: none Post Position: sutured, good blood return, position confirmed w/ CXR Place. Ultrasound guidance 1 attempt. Without complications. Good return and flush. Confirmed by 2 view chest x-ray. Date of ETT Placement: Nov 24, 2018 Time of ETT Placement: 820 Tube Size: 8.00 Medications: Etomidate, Fentanyl, Succinylcholine, Versed Positive End Tide CO2: Yes Breath Sounds after Intubation: bilateral-equal Intubation Complications: no complications Post Intubation Xray: Yes tube in good position at the position of the clavicles. Progress/Results/Core Measures Suspected Sepsis Recent Fever Within 48 Hours: No Infection Criteria Present: Documented Infection New/Unexplained Altered Menta: Yes Sepsis Screen: Possible Severe Sepsis Risk SIRS Temperature:98.7 Pulse: 109 Respiratory Rate: 22 Laboratory Tests 11/24/18 08:20: White Blood Count 15.7H Blood Pressure 109 /72 Mean: 84 11/24/18 08:20: Lactic Acid Level 0.92 Laboratory Tests 11/24/18 08:20: Creatinine 1.59H, INR Comment 1.0, Platelet Count 285, Total Bilirubin 0.2 Results/Orders Lab Results Laboratory Tests Test 11/24/18 08:20 11/24/18 08:11/24/18 08:36 Range/Units White Blood Count 15.7 H 4.3-11.0 10^3/uL Red Blood Count 4.61 4.35-5.85 10^6/uL Hemoglobin 12.0 L 13.3-17.7 G/DL Hematocrit 41 40-54 % Mean Corpuscular Volume 88 80-99 FL Mean Corpuscular Hemoglobin 26 25-34 PG Mean Corpuscular Hemoglobin Concent 30 L 32-36 G/DL Red Cell Distribution Width 17.3 H 10.0-14.5 % Platelet Count 285 130-400 10^3/uL Mean Platelet Volume 9.6 7.4-10.4 FL Neutrophils (%) (Auto) 76 H 42-75 % Lymphocytes (%) (Auto) 10 L 12-44 % Monocytes (%) (Auto) 13 H 0-12 % Eosinophils (%) (Auto) 0 0-10 % Basophils (%) (Auto) 1 0-10 % Neutrophils # (Auto) 11.9 H 1.8-7.8 X 10^3 Lymphocytes # (Auto) 1.6 1.0-4.0 X 10^3 Monocytes # (Auto) 2.1 H 0.0-1.0 X 10^3 Eosinophils # (Auto) 0.0 0.0-0.3 10^3/uL Basophils # (Auto) 0.1 0.0-0.1 10^3/uL Neutrophils % (Manual) 70 % Lymphocytes % (Manual) 11 % Monocytes % (Manual) 11 % Myelocytes % 1 % Band Neutrophils 7 % Nucleated Red Blood Cells 2 Polychromasia SLIGHT Anisocytosis SLIGHT Blood Morphology Comment SEE REFERENCE Prothrombin Time 13.9 12.2-14.7 SEC INR Comment 1.0 0.8-1.4 Activated Partial Thromboplast Time 28 24-35 SEC Sodium Level 141 135-145 MMOL/L Potassium Level 4.8 3.6-5.0 MMOL/L Chloride Level 102 98-107 MMOL/L Carbon Dioxide Level 31 21-32 MMOL/L Anion Gap 8 5-14 MMOL/L Blood Urea Nitrogen 18 7-18 MG/DL Creatinine 1.59 H 0.60-1.30 MG/DL Estimat Glomerular Filtration Rate 47 BUN/Creatinine Ratio 11 Glucose Level 210 H 70-105 MG/DL Lactic Acid Level 0.92 0.50-2.00 MMOL/L Calcium Level 8.6 8.5-10.1 MG/DL Corrected Calcium 8.6 8.5-10.1 MG/DL Total Bilirubin 0.2 0.1-1.0 MG/DL Aspartate Amino Transf (AST/SGOT) 21 5-34 U/L Alanine Aminotransferase (ALT/SGPT) 16 0-55 U/L Alkaline Phosphatase 71 40-136 U/L Total Protein 7.0 6.4-8.2 GM/DL Albumin 4.0 3.2-4.5 GM/DL Triglycerides Level 288 H <150 MG/DL Urine Color YELLOW Urine Clarity CLEAR Urine pH 5 5-9 Urine Specific [place] 1.025 H 1.016-1.022 Urine Protein 3+ H NEGATIVE Urine Glucose (UA) 1+ H NEGATIVE Urine Ketones 1+ H NEGATIVE Urine Nitrite NEGATIVE NEGATIVE Urine Bilirubin NEGATIVE NEGATIVE Urine Urobilinogen 1 NORMAL MG/DL Urine Leukocyte Esterase 1+ H NEGATIVE Urine RBC (Auto) 5+ H NEGATIVE Urine RBC 25-50 H /HPF Urine WBC 2-5 /HPF Urine Crystals PRESENT H /LPF Urine Amorphous Sediment FEW STEPHEN URATES H /LPF Urine Bacteria FEW H /HPF Urine Casts NONE /LPF Urine Mucus NEGATIVE /LPF Urine Culture Indicated NO Blood Gas Puncture Site LT RAD Blood Gas Patient Temperature 37 Arterial Blood pH 7.23 *L 7.37-7.43 Arterial Blood Partial Pressure CO2 77 *H 35-45 MMHG Arterial Blood Partial Pressure O2 99 H 79-93 MMHG Arterial Blood HCO3 31 H 23-27 MMOL/L Arterial Blood Total CO2 33.0 H 21.0-31.0 MMOL/L Arterial Blood Oxygen Saturation 97 94-100 % Arterial Blood Base Excess 3.6 H -2.5-2.5 MMOL/L Chi Test YES-POS Blood Gas Ventilator Setting YES Blood Gas Inspired Oxygen 80% Micro Results Microbiology 11/24/18 Influenza Types A,B Antigen (MEY) - Final, Complete My Orders Orders - TOMAS NEVAREZ MD Cbc With Automated Diff (11/24/18 08:29) Comprehensive Metabolic Panel (11/24/18 08:29) Blood Culture (11/24/18 08:29) Sputum Culture (11/24/18 08:29) Urinalysis (11/24/18 08:29) Urine Culture (11/24/18 08:29) Protime With Inr (11/24/18 08:29) Partial Thromboplastin Time (11/24/18 08:29) Chest 1 View, Ap/Pa Only (11/24/18 08:29) Ed Iv/Invasive Line Start (11/24/18 08:29) Vital Signs Adult Sepsis Patie Q15M (11/24/18 08:29) O2 (11/24/18 08:29) Remove Rings In Anticipation O (11/24/18 08:29) Lactic Acid Analyzer (11/24/18 08:29) Influenza A And B Antigens (11/24/18 08:29) Lactated Ringers (Lr 1000 Ml Iv Solution (11/24/18 08:29) Ed Iv/Invasive Line Start (11/24/18 08:29) Lactated Ringers (Lr 1000 Ml Iv Solution (11/24/18 08:29) Catheter(Urinary) Insert & Ass 03,15 (11/24/18 08:29) Ng Tube Insert & Assessment (11/24/18 08:29) Arterial Blood Gas (11/24/18 08:36) [place] Level (11/24/18 08:31) Propofol Drip (Icu) (Diprivan Drip (Icu) (11/24/18 08:45) Sedation Communication Q48H (11/24/18 08:33) Triglycerides (11/24/18 08:33) Manual Differential (11/24/18 08:20) Piperacillin Sodium/Tazobactam (Zosyn Vi (11/24/18 09:45) Norepinephrine (Levophed) (11/24/18 10:00) Vancomycin Injection (Vancomycin Injecti (11/24/18 10:00) Vancomycin Injection (Vancomycin Injecti (11/24/18 10:15) Medications Given in ED Current Medications Medications Dose Ordered Sig/Ariana Route Start Time Stop Time Status Last Admin Dose Admin Lactated Ringer's 1,000 ml @ 0 mls/hr Q0M ONCE IV 11/24/18 08:29 11/24/18 08:32 DC 11/24/18 08:59 1,000 MLS/HR Lactated Ringer's 1,000 ml @ 0 mls/hr Q0M ONCE IV 11/24/18 08:29 11/24/18 08:32 DC 11/24/18 09:12 1,000 MLS/HR Piperacillin Sod/ Tazobactam Sod 4.5 gm/Sodium Chloride 100 ml @ 200 mls/hr ONCE ONCE IV 11/24/18 09:45 11/24/18 10:14 11/24/18 09:52 200 MLS/HR Vital Signs/I&O 11/24/18 11/24/18 08:10 08:41 Temp 37.1 37.00240 Pulse 115 109 Resp 27 22 B/P (MAP) 167/138 (148) 109/72 Pulse Ox 93 97 O2 Delivery Non Rebreather Mechanical Ventilator Capillary Refill : Less Than 3 Seconds Blood Pressure Mean: 84 Progress Note : Progress Note Seen and evaluated on arrival by EMS. Rapid assessment. Sepsis order set initiated. Patient obtunded and concerns about airway protection and the need for high flow O2. Unable to do BiPAP due to obtunded. Elected to intubate emergently for airway protection. This was accomplished the via scope without difficulty. Patient did have some vomitus and debris in the posterior pharynx. We also elected for central line placement due to the need for high volume fluid resuscitation and likely antibiotics and pressors. This was placed via ultrasound guidance without difficulty. We did initiate high-volume fluid resuscitation. Patient did get 1 L of normal saline by EMS and we have ordered 2 more liters of LR to equal 30 mL/kg. Patient did receive Versed 5 mg IV after intubation as well as fentanyl 50 g IV. We have initiated trip of propofol for sedation. Rocuronium 50 mg IV given prior to initiation of propofol due to fighting the vent somewhat with breathing and high pressure alarm on vent. Initial vent settings were tidal volume of 500 and rate of 14 and FiO2 at 100%. This was changed ultimately to tidal volume of 500, rate of 20, PEEP of 8 and FiO2 decreased to 80% after ABG results and no guarding end-tidal CO2 of 70 after an ablation. Patient will receive Zosyn 4.5 g IV for bilateral pneumonia noted on chest x-ray. I did discuss the case with Dr. Lam at 0937. He agrees with therapy thus far. He accepts patient in consult to the ICU. 0947: I did discuss the case with Dr. Hutchinson, he says patient for admission to the ICU. He would like vancomycin added to the regimen which was ordered. End-tidal CO2 45. 0950: Patient is now hypotensive with BP less than 90 systolic. We will initiate Levophed. 1020: BP 99/73. I attest a focused exam at this time. Patient to go to ICU. Diagnostic Imaging Diagonstic Imaging: Xray Plain Films/CT/US/NM/MRI: chest Comments NAME: ANA CHILEL REC#: [id number] PT STATUS: REG ER : 1970 PHYSICIAN: TOMAS NEVAREZ MD ADMIT DATE: 11/24/18/ER Draft Date of Exam:11/24/18 CHEST 1 VIEW, AP/PA ONLY INDICATION: Unresponsive, ET tube. TECHNIQUE: Frontal view of the chest. COMPARISON: 03/29/2017 FINDINGS: The endotracheal tube is approximately 5.5 cm from the anibal. The enteric tube crosses the [id number]. The right jugular line tip projects over the low SVC. Lung volumes are low. There are bibasilar airspace opacities, left greater than right. There are perihilar airspace opacities bilaterally. No large effusion or pneumothorax is seen. The cardiomediastinal silhouette is wide, and likely accentuated by the low lung volumes and supine AP technique. IMPRESSION: 1. Tubes and line in expected position. 2. Low lung volumes with bibasilar and perihilar airspace opacities, left greater than right. This may be due to pneumonia or edema. 3. Wide cardiomediastinal silhouette, likely accentuated by the low lung volumes and technique. Recommend followup. Dictated on workstation # [id number] Dict: 11/24/18915 Trans: 11/24/18920 [id number] Interpreted by: KYLAH ARCHER MD Electronically signed by: Critical Care Note Critical Care Start Time: 08:10 Stop Time: 10:20 Total Time (minutes) 60 Departure Communication (Admissions) Time/Spoke to Admitting Phy: 09:47 Time/Spoke to Consulting Phy: 09:37 Impression Primary Impression: Bilateral pneumonia Qualified Codes: J18.1 - Lobar pneumonia, unspecified organism Additional Impression: Acute respiratory failure with hypoxia and hypercapnia Disposition: ADMITTED INPATIENT Condition: Critical Admissions Decision to Admit Reason: Admit from ER (General) Decision to Admit/Date: Nov 24, 2018 Time/Decision to Admit Time: 09:37 Departure-Patient Inst. Referrals: JORDEN WYLIE MD (PCP/Family) Primary Care Physician TOMAS NEVAREZ MD Nov 24, 2018 10:14
[2018-11-24] MEDS ORDERED: VANCOMYCIN 2000 MG/NS 500 ML IVPB IV NR ×2 (10:15)
[2018-11-24] MEDS ORDERED: LACTATED RINGERS 1,000 ML IV SCH (10:30)
--- NOTE | 2018-11-24 10:30 | Pulmonary Consultation ---
CARMEN GUZMAN,MED STUDENT 11/24/18 1030: History of Present Illness History of Present Illness Date of Consultation 11/24/18 10:25 Time Seen by Provider: 10:25 Date of Admission History of Present Illness Patient was brought to ED by EMS with AMS and respiratory distress. Patient was seen yesterday at [facility] and was diagnosised with bronchitis and then sent home. Caregiver's report stated t5hat he was up with active, moving and had a cough yesterday. patient was found unresponsive by caretakers this am and EMS was called. He has had similar episode and presentation about 2yrs ago. Caregivers state that patient "goes and goes until he has significant event like this morning." EMS reported initial O2 of 57% which increased to >90 with high flow O2. EMS transported readily and gave 1L NS before arriving at ER. ER reports that patient did have vomitus on his mouth and there is concern for aspiration. Patient was intubated and placed on a ventilator in the ER before being moved to the ICU. Allergies and Home Medications Allergies Coded Allergies: fluoxetine (Verified Allergy, Unknown, 03/05/17) Home Medications Atorvastatin Calcium 20 Mg Tablet, 20 MG PO HS, (Reported) Benztropine Mesylate 1 Mg Tablet, 1 MG PO TID, (Reported) Clonazepam 2 Mg Tablet, 1 MG PO 1500, (Reported) Clonazepam 2 Mg Tablet, 3 MG PO HS, (Reported) Clozapine 100 Mg Tablet, 300 MG PO BID, (Reported) Clozapine 100 Mg Tablet, 200 MG PO 1500, (Reported) Divalproex Sodium 500 Mg Tab.er.24h, 2,000 MG PO DAILY, (Reported) Docusate Sodium 100 Mg Capsule, 100 MG PO BID, (Reported) Folic Acid 1 Mg Tablet, 0.5 MG PO DAILY, (Reported) Haloperidol 2 Mg Tablet, 2 MG PO DAILY, (Reported) Lactulose 10 Gm/15 Ml Solution, 30 ML PO BID, (Reported) Levetiracetam 500 Mg Tablet, 500 MG PO BID, (Reported) Loratadine 10 Mg Tablet, 10 MG PO DAILY, (Reported) Metoprolol Succinate 25 Mg Tab.er.24h, 25 MG PO DAILY, (Reported) [place] 3 Polyunsat Fatty Acids 1,000 Mg Cap, 1,000 MG PO BIDAC, (Reported) Oxybutynin Chloride 5 Mg Tablet, 5 MG PO BID, (Reported) Pantoprazole Sodium 40 Mg Tablet.dr, 40 MG PO DAILY, (Reported) Polyethylene Glycol 3350 17 Gm Powd.pack, 17 GM PO DAILY, (Reported) Quetiapine Fumarate 200 Mg Tablet, 200 MG PO HS, (Reported) Vortioxetine Hydrobromide 10 Mg Tablet, 10 MG PO DAILY, (Reported) Past Cwnqwgz-Lwrnvc-Mfkvwz Hx Past Med/Social Hx: Reviewed Nursing Past Med/Soc Hx Patient Social History Alcohol Use: Denies Use Recreational Drug Use: No Smoking Status: Current Everyday Smoker Type Used: Cigarettes 2nd Hand Smoke Exposure: No Recent Foreign Travel: No Contact w/Someone Who Travel: No Recent Infectious Disease Expo: No Recent Hopitalizations: No Immunizations Up To Date Tetanus Booster (TDap): More than 5yrs Date of Influenza Vaccine: Dec 06, 2016 Seasonal Allergies Seasonal Allergies: No Past Medical History Surgeries: No (UNKNOWN) Respiratory: Yes (UNKNOWN) Pneumonia Cardiac: Yes High Cholesterol, Hypertension Neurological: Yes Seizure Disorder Genitourinary: No (UNKNOWN) Gastrointestinal: Yes Gastroesophageal Reflux, Chronic Constipation Musculoskeletal: No (UNKNOWN) Endocrine: No (UNKNOWN - PT IS MR) HEENT: No (UNKNOWN) Cancer: No (UNKNOWN) Psychosocial: Yes (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) Schizophrenia, Violent Behavior, Depression Integumentary: Yes Psoriasis Blood Disorders: No (UNKNOWN) Family Medical History Reviewed Nursing Family Hx Patient reports no known family medical history. No Pertinent Family Hx Sepsis Event Evaluation Height, Weight, BMI Height: 5'9.00" Weight: 184lbs. 3.0oz. 83.364254rq; 30.00 BMI Method:Estimated Exam Exam Vital Signs Date Time Temp Pulse Resp B/P (MAP) Pulse Ox O2 Delivery O2 Flow Rate FiO2 11/24/18 08:41 37.60987 109 22 109/72 97 Mechanical Ventilator 11/24/18 08:10 37.1 115 27 167/138 (148) 93 Non Rebreather Height & Weight Height: 5'9.00" Weight: 184lbs. 3.0oz. 83.666223hy; 30.00 BMI Method:Estimated General Appearance: Other (ill appearing and sedated on a ventilator ) HEENT: PERRL/EOMI, Other (dry mucous membranes with debris in the mouth and posterior pharynx) Neck: Non Tender, Supple Respiratory: Decreased Breath Sounds, Wheezing Cardiovascular: No Murmur, Tachycardia Capillary Refill: Less Than 3 Seconds Extremity: Normal Capillary Refill, No Pedal Edema Neurologic/Psychiatric: Other (sedated ) Results Lab Laboratory Tests 11/24/18 08:20 Assessment/Plan Assessment/Plan acute respiratory distress intubated and placed on a ventilator Bronchitis HTN GERD schizophrenia violent behavior depression seizure disorder prior history of PNA high cholesterol Psoriasis chronic constipation JESSICA LAM DO 11/24/18 1343: History of Present Illness History of Present Illness Time Seen by Provider: 13:31 Allergies and Home Medications Allergies Coded Allergies: fluoxetine (Verified Allergy, Unknown, 03/05/17) Home Medications Atorvastatin Calcium 20 Mg Tablet, 20 MG PO HS, (Reported) Benztropine Mesylate 1 Mg Tablet, 1 MG PO TID, (Reported) Clonazepam 2 Mg Tablet, 1 MG PO 1500, (Reported) Clonazepam 2 Mg Tablet, 3 MG PO HS, (Reported) Clozapine 100 Mg Tablet, 300 MG PO BID, (Reported) Clozapine 100 Mg Tablet, 200 MG PO 1500, (Reported) Divalproex Sodium 500 Mg Tab.er.24h, 2,000 MG PO DAILY, (Reported) Docusate Sodium 100 Mg Capsule, 100 MG PO BID, (Reported) Folic Acid 1 Mg Tablet, 0.5 MG PO DAILY, (Reported) Haloperidol 2 Mg Tablet, 2 MG PO DAILY, (Reported) Lactulose 10 Gm/15 Ml Solution, 30 ML PO BID, (Reported) Levetiracetam 500 Mg Tablet, 500 MG PO BID, (Reported) Loratadine 10 Mg Tablet, 10 MG PO DAILY, (Reported) Metoprolol Succinate 25 Mg Tab.er.24h, 25 MG PO DAILY, (Reported) [place] 3 Polyunsat Fatty Acids 1,000 Mg Cap, 1,000 MG PO BIDAC, (Reported) Oxybutynin Chloride 5 Mg Tablet, 5 MG PO BID, (Reported) Pantoprazole Sodium 40 Mg Tablet.dr, 40 MG PO DAILY, (Reported) Polyethylene Glycol 3350 17 Gm Powd.pack, 17 GM PO DAILY, (Reported) Quetiapine Fumarate 200 Mg Tablet, 200 MG PO HS, (Reported) Vortioxetine Hydrobromide 10 Mg Tablet, 10 MG PO DAILY, (Reported) Past Lxcwebb-Hfwyyg-Phjfhx Hx Family Medical History Patient reports no known family medical history. Review of Systems Time Seen by Provider: 13:46 Exam Exam General Appearance: No Apparent Distress, WD/WN, Other (ill appearing and sedated on a ventilator ) HEENT: PERRL/EOMI Neck: Non Tender, Supple Respiratory: Crackles, Decreased Breath Sounds Cardiovascular: No Murmur, Tachycardia Capillary Refill: Less Than 3 Seconds Extremity: Normal Capillary Refill, No Pedal Edema Skin: Normal Color, Warm/Dry Lymphatic: No Adenopathy Assessment/Plan Assessment/Plan acute respiratory failure -Continue vent management -Hx of acute respiratory failure 1 yr ago acute Seizures - with hx of seizures and frequent falls -Ativan 2-4mg IV Q 2PRN for seizures -Keppra 1gm IV BID -Montior -Seizure precautions Pneumonia with sepsis probably secondary to aspiration and probable acute seizure -Continue Zosyn -Enrique cultures Chronic renal failure -Monitor Anemia -Monitor Hx of MR schizophrenia Supervisory-Addendum Brief Verification & Attestation Participated in pt care: history, physical Personally performed: exam Care discussed with: Medical Student Procedures: n/a Verification and Attestation of Medical Student E/M Service A medical student performed and documented this service in my presence. I r eviewed and verified all information documented by the medical student and made modifications to such information, when appropriate. I personally performed the physical exam and medical decision making. Jessica Lam, Nov 24, 2018,13:47 CARMEN GUZMAN,MED STUDENT Nov 24, 2018 10:30 JESSICA LAM DO Nov 24, 2018 13:43
[2018-11-24 11:55] LABS: ABG BASE EXCESS 1.7 MMOL/L (-2.5-2.5); ABG OXYGEN SATURATION 96 % (94-100); ABG PCO2 48 MMHG (35-45); ABG PH 7.36 (7.37-7.43); ABG PO2 75 MMHG (79-93); ABG TCO2 28.3 MMOL/L (21.0-31.0)
[2018-11-24 11:57] LABS: ALLENS TEST YES-POS; INSPIRED O2 25%; PATIENT TEMP 36.3; VENTILATOR YES
[2018-11-24] MEDS ORDERED: ROCURONIUM 10 MG/ML 5 ML SYRINGE IV ONE (12:46)
[2018-11-24] MEDS ORDERED: ETOMIDATE IV SOLN 20 MG/10 ML VIAL IV ONE (12:46)
[2018-11-24] MEDS ORDERED: SUCCINYLCHOLINE INJ 100 MG/5 ML SYR INJ ONE (12:46)
[2018-11-24] MEDS ORDERED: MIDAZOLAM 5 MG/5 ML (VERSED) VIAL INJ ONE (12:46)
[2018-11-24] MEDS ORDERED: fentaNYL INJECTION 100 MCG/2 ML AMP INJ ONE (12:46)
[2018-11-24] MEDS ORDERED: EPINEPHrine 1 MG INJECTION 2 MG in NS (IVPB) 250 ML IV SCH (13:00)
[2018-11-24] MEDS ORDERED: LORazepam INJ 2 MG/ML (ATIVAN) VIAL ONE (13:13)
[2018-11-24] MEDS ORDERED: PIPERACILLIN/TAZOBACTAM (BULK) 4.5 GM in NS (IVPB) 100 ML IV SCH (13:15)
--- NOTE | 2018-11-24 13:16 | NUR ---
VANCOMYCIN DOSING SCR 1.59; CRCL ~ 68; BOLUS VANC 2 GM GIVEN IN ED; VANC 15 MG/KG X 100 KG ~ 1500 MG Q12H NO TROUGH LEVEL DUE TO 3 DAY DOSING PER PROTOCOL
[2018-11-24] MEDS ORDERED: LORazepam INJ 2 MG/ML (ATIVAN) VIAL IVP PRN (13:30)
[2018-11-24] MEDS ORDERED: LEVETIRACETAM INJECTION 1,000 MG in NS (IVPB) 100 ML IV SCH (13:30)
--- NOTE | 2018-11-24 14:05 | Diagnostic Imaging Report ---
PROCEDURE: CT head wo r/o stroke. TECHNIQUE: Multiple contiguous axial images were obtained through the brain without the use of intravenous contrast. Auto Exposure Controls were utilized during the CT exam to meet ALARA standards for radiation dose reduction. INDICATION: Seizure. COMPARISON: 03/25/2017. FINDINGS: There is mild prominence of the ventricles and sulci. There is no hydrocephalus. There is no midline shift. There is no intracranial mass, hemorrhage, or extra-axial fluid collection. There is no evidence of a transcortical infarct. The calvarium is intact. The sinuses and mastoid air cells are clear. IMPRESSION: Mild cortical atrophy; however, no acute intracranial abnormality. Dictated by: Dictated on workstation # [id number]
[2018-11-24] MEDS: LEVETIRACETAM INJECTION 1,000 MG in NS (IVPB) 100 ML IV SCH (14:22)
[2018-11-24] MEDS ORDERED: RT-ALBUTEROL/IPRATROPIUM 3 ML (DUONEB) VIAL INH PRN (14:30)
[2018-11-24] MEDS: LACTATED RINGERS 1,000 ML IV SCH ×3 (15:00→18:59)
[2018-11-24] MEDS ORDERED: ACET325T38 PO (15:20)
[2018-11-24] MEDS ORDERED: ILOP4TAB2 PO (15:20)
[2018-11-24] MEDS ORDERED: VORT20TA PO (15:20)
[2018-11-24] MEDS ORDERED: MAGN400O7 PO (15:20)
[2018-11-24] MEDS ORDERED: LITH300C PO ×2 (15:20)
[2018-11-24] MEDS ORDERED: MELO15TA39 PO (15:20)
[2018-11-24] MEDS ORDERED: TRAM50TA2 PO (15:20)
[2018-11-24] MEDS ORDERED: ACET-2267 PO (15:20)
[2018-11-24] MEDS ORDERED: EUCA1LOZ28 MM (15:20)
[2018-11-24] MEDS ORDERED: IBUP-30 PO (15:20)
[2018-11-24] MEDS ORDERED: PHEN28OI6 RC (15:20)
[2018-11-24] MEDS ORDERED: CLON1TAB13 PO (15:20)
[2018-11-24] MEDS ORDERED: LOPE-134 PO (15:20)
[2018-11-24] MEDS ORDERED: VITA200C60 PO (15:20)
[2018-11-24] MEDS ORDERED: NPB.9O TP (15:20)
[2018-11-24] MEDS ORDERED: RANI150T11 PO (15:20)
[2018-11-24] MEDS ORDERED: MAG355OR16 PO (15:20)
[2018-11-24] MEDS ORDERED: CARB15DR87 EACH EAR (15:20)
[2018-11-24] MEDS ORDERED: LIDO76.53 TP (15:20)
[2018-11-24] MEDS ORDERED: [UNRECOGNIZED DRUG - CODE] PO (15:20)
[2018-11-24] MEDS ORDERED: HYDR42CR3 TP (15:20)
[2018-11-24] MEDS ORDERED: GUAI237L82 PO (15:20)
[2018-11-24] MEDS ORDERED: DIVA125C10 PO (15:20)
[2018-11-24] MEDS ORDERED: TRAZ-190 PO (15:20)
[2018-11-24] MEDS ORDERED: DIPH25CA79 PO (15:20)
[2018-11-24] MEDS ORDERED: CARB10DR OU (15:20)
[2018-11-24] MEDS ORDERED: TOLN133A TP (15:20)
[2018-11-24] MEDS: NOREPINEPHRINE 4 MG in NS (IVPB) 250 ML IV SCH ×2 (15:30→21:10)
--- NOTE | 2018-11-24 15:31 | NUR ---
UPDATED MED REC WITH MAR FROM [facility]. NOTE THE MAR STATES METOPROLOL TARTRATE 25MG DAILY HOWEVER ACCORDING TO THE EXT MED HX METOPROLOL SUCCINATE HAS BEEN FILLED. I UPDATED THE MED REC WITH THE FORMULATION SHOWN ON THE EXT MED HX.
[2018-11-24] MEDS ORDERED: PROPOFOL DRIP (ICU) 100 ML IV ONE (15:54)
[2018-11-24] MEDS: PIPERACILLIN/TAZO 4.5 GM/NS 100 ML IV SCH ×4 (15:58→23:48)
[2018-11-24] MEDS: VASOPRESSIN INJECTION 20 UNIT in NORMAL SALINE 100 ML IV SCH ×2 (15:58→21:10)
[2018-11-24] MEDS: HYDROCORTISONE 100 MG/2 ML (Solu-CORTEF) VIAL IV SCH ×2 (15:58→21:27)
[2018-11-24] MEDS: inSUlin ASPART (NovoLOG) 1 UNIT/0.01 ML (CHARGE PER UNIT) SQ SCH ×2 (18:43→23:48)
[2018-11-24] MEDS: RT-ALBUTEROL/IPRATROPIUM 3 ML (DUONEB) VIAL INH SCH ×2 (18:56→22:13)
--- NOTE | 2018-11-24 19:20 | History & Physical-Hospitalist ---
History of Present Illness HPI/Chief Complaint Milad Duran is a 48yoM with PMH MR, schizophrenia, seizure disorder, who presented from [facility] after being found altered and hypoxic. He is intubated and sedated without any caregivers at his bedside upon my examination. Upon arrival to the ER, he was found to have a bilateral lower lobe pneumonia concerning for aspiration. He reportedly has a seizure history but this has been well controlled for years with low-dose Keppra. Exam Limitations: clinical condition Date Seen 11/24/18 Time Seen by a Provider: 12:00 Attending Physician Doug Hutchinson MD PCP Nelida Marroquin MD Referring Physician Date of Admission Nov 24, 2018 at 09:45 Home Medications & Allergies Home Medications Reviewed patient Home Medication Reconciliation performed by pharmacy medication reconciliations compounding pharmacy technician and/or nursing. Patients Allergies have been reviewed. Allergies Allergies Coded Allergies fluoxetine (Verified Allergy, Unknown, 03/05/17) Past Klsspia-Jaotrw-Iqbjjg Hx Past Med/Social Hx: Reviewed Nursing Past Med/Soc Hx Patient Social History Alcohol Use: Denies Use Recreational Drug Use: No Smoking Status: Current Everyday Smoker Type Used: Cigarettes 2nd Hand Smoke Exposure: No Recent Foreign Travel: No Contact w/other who traveled: No Recent Hopitalizations: No Recent Infectious Disease Expo: No Immunizations Up To Date Tetanus Booster (TDap): More than 5yrs Date of Influenza Vaccine: Dec 06, 2016 Seasonal Allergies Seasonal Allergies: No Past Medical History Respiratory: Pneumonia Cardiac: High Cholesterol, Hypertension Neurological: Seizure Disorder Gastrointestinal: Gastroesophageal Reflux, Chronic Constipation Psychosocial: Schizophrenia, Violent Behavior, Depression Skin/Integumentary: Psoriasis History of Blood Disorders: No (UNKNOWN) Family History Reviewed Nursing Family Hx Patient reports no known family medical history. No Pertinent Family Hx Review of Systems Constitutional: see HPI Physical Exam Physical Exam Vital Signs Vital Signs - First Documented 11/24/18 11/24/18 11/24/18 08:10 10:39 11:00 Temp 37.1 Pulse 115 Resp 27 B/P (MAP) 167/138 (148) Pulse Ox 93 O2 Delivery Non Rebreather O2 Flow Rate 25.00 FiO2 25 Capillary Refill : Less Than 3 SecondsLess Than 3 Seconds Height, Weight, BMI Height: 5'9.00" Weight: 184lbs. 3.0oz. 83.510700wt; 30.00 BMI Method:Estimated General Appearance: No Apparent Distress, WD/WN HEENT: Other (endotracheal tube in place) Respiratory: Lungs Clear, Normal Breath Sounds, Other (intubated and mechanically ventilated) Cardiovascular: Regular Rate, Rhythm, No Edema, No Murmur Gastrointestinal: Normal Bowel Sounds, Non Tender, Soft Extremity: Normal Inspection, No Pedal Edema Neurologic/Psychiatric: Other (sedated) Skin: Normal Color, Warm/Dry Results Results/Procedures Labs Laboratory Tests 11/24/18 08:20 Patient resulted labs reviewed. Imaging: Reviewed Imaging Report Assessment/Plan Admission Diagnosis Septic shock due to pneumonia Admission Status: Inpatient Order (span 2 midnights) Reason for Inpatient Admission: Septic shock Multifocal pneumonia Seizure disorder Acute kidney injury Assessment and Plan Septic shock Multifocal pneumonia, possible aspiration -Imaging consistent with bilateral lower lobe pneumonia -Concern for possible aspiration -Blood pressures soft following fluid resuscitation -Started on Levophed -Begin Vancomycin and Zosyn -Blood cultures drawn Acute hypoxic and hypercapnic respiratory failure -ABG revealed acute respiratory acidosis and hypoxia -Intubated and sedated -Pulmonology consulted, appreciate recommendations Acute kidney injury -Cr 1.6 on arrival up from baseline 0.9 -Continue fluid resuscitation Seizure disorder -Received Ativan 4 mg due to seizure like activity -Increase to Keppra 1000 mg twice daily -CT Head without acute abnormalities Critical Care Critically Ill Patient Diagnosis/Problems Diagnosis/Problems (1) Septic shock Status: Acute (2) Bilateral pneumonia Status: Acute Qualifiers: Pneumonia type: due to unspecified organism Lung location: lower lobe of lung Qualified Codes: J18.1 - Lobar pneumonia, unspecified organism (3) Acute respiratory failure with hypoxia and hypercapnia Status: Acute (4) Acute kidney injury Status: Acute (5) Mental retardation Status: Chronic (6) Paranoid schizophrenia Status: Chronic (7) Seizure disorder Status: Acute Clinical Quality Measures DVT/VTE Risk/Contraindication: Risk Factor Score Per Nursin RFS Level Per Nursing on Admit: 4+=Very High DOUG HUTCHINSON MD Nov 24, 2018 19:20
[2018-11-24] MEDS: VANCOMYCIN 1500 MG/NS 500 ML IVPB IV SCH ×2 (21:28)
[2018-11-25] VITALS (30 sets, daily range): BP systolic 102–180; BP diastolic 59–113
[2018-11-25] MEDS: PROPOFOL DRIP (ICU) 100 ML IV SCH ×2 (01:22→08:22)
[2018-11-25] MEDS: LACTATED RINGERS 1,000 ML IV SCH (01:23)
[2018-11-25] MEDS: LEVETIRACETAM INJECTION 1,000 MG in NS (IVPB) 100 ML IV SCH ×2 (01:27→14:17)
[2018-11-25] MEDS: RT-ALBUTEROL/IPRATROPIUM 3 ML (DUONEB) VIAL INH SCH ×6 (01:49→21:51)
[2018-11-25 03:15] LABS: ABG BASE EXCESS 2.4 MMOL/L (-2.5-2.5); ABG OXYGEN SATURATION 82 % (94-100); ABG PCO2 47 MMHG (35-45); ABG PH 7.38 (7.37-7.43); ABG PO2 46 MMHG (79-93); ABG TCO2 28.7 MMOL/L (21.0-31.0)
[2018-11-25 03:17] LABS: ALLENS TEST YES-POS; INSPIRED O2 30; PATIENT TEMP 36.2; VENTILATOR YES
[2018-11-25 03:17] LABS: BASOPHILS % (AUTO) 0 % (0-10); EOSINOPHILS % (AUTO) 0 % (0-10); HEMATOCRIT 34 % (40-54); HEMOGLOBIN 10.4 G/DL (13.3-17.7); LYMPHOCYTES # (AUTO) 1.3 X 10^3 (1.0-4.0); LYMPHOCYTES % (AUTO) 12 % (12-44); MEAN CORPUSCULAR HEMOGLOBIN 27 PG (25-34); MEAN CORPUSCULAR HGB CONC 31 G/DL (32-36); MEAN CORPUSCULAR VOLUME 86 FL (80-99); MEAN PLATELET VOLUME 9.4 FL (7.4-10.4); MONOCYTES # (AUTO) 0.6 X 10^3 (0.0-1.0); MONOCYTES % (AUTO) 6 % (0-12); NEUTROPHILS % (AUTO) 82 % (42-75); PLATELET COUNT 216 10^3/uL (130-400); RED CELL DISTRIBUTION WIDTH 17.3 % (10.0-14.5)
[2018-11-25 03:38] LABS: BUN/CREATININE RATIO 13; CALCIUM 8.1 MG/DL (8.5-10.1); CARBON DIOXIDE 25 MMOL/L (21-32); CHLORIDE 111 MMOL/L (98-107); CREATININE SERUM 0.82 MG/DL (0.60-1.30); GFR ESTIMATED > 60; GLUCOSE 129 MG/DL (70-105); MAGNESIUM 2.4 MG/DL (1.6-2.4); PHOSPHORUS 3.8 MG/DL (2.3-4.7); POTASSIUM 3.7 MMOL/L (3.6-5.0); SODIUM 148 MMOL/L (135-145)
[2018-11-25] MEDS ORDERED: HALOPERIDOL 5 MG/ML (HALDOL) AMP IV PRN (03:45)
--- NOTE | 2018-11-25 04:51 | NUR ---
Dr. Lam at bedside to look at patient. This RN at bedside. Pt was suctioned by MD student. No further orders at this time. Will continue to monitor for any changes.
--- NOTE | 2018-11-25 05:36 | Pulmonary Progress Note ---
Subjective Time Seen by a Provider: 05:38 Subjective/Events-last exam Pt is sedated on vent. Sepsis Event Evaluation Height, Weight, BMI Height: 5'9.00" Weight: 216lbs. 0.3oz. 97.743519dz; 30.00 BMI Method:Estimated Focused Exam Lactate Level 11/24/18 08:20: Lactic Acid Level 0.92 11/24/18 12:59: Lactic Acid Level 1.93 Exam Exam Vital Signs Date Time Temp Pulse Resp B/P (MAP) Pulse Ox O2 Delivery O2 Flow Rate FiO2 11/25/18 05:00 103 13 124/85 (98) 92 Mechanical Ventilator 30.00 11/25/18 04:00 92 Mechanical Ventilator 30 11/25/18 04:00 102 17 126/89 (101) 89 Mechanical Ventilator 30.00 11/25/18 03:14 36.2 11/25/18 03:00 81 21 118/69 (85) 92 Mechanical Ventilator 30.00 11/25/18 02:00 75 21 111/68 (82) 92 Mechanical Ventilator 30.00 11/25/18 01:49 73 22 92 30 11/25/18 01:22 37.80998 80 22 118/73 92 Mechanical Ventilator 30.00 11/25/18 01:00 72 21 102/59 (73) 92 Mechanical Ventilator 30.00 11/25/18 01:00 73 11/25/18 00:01 92 Mechanical Ventilator 30 11/25/18 00:00 87 21 122/74 (90) 92 Mechanical Ventilator 30.00 11/24/18 23:58 37.2 30.00 11/24/18 23:00 36.9 91 22 132/84 (100) 93 Mechanical Ventilator 30.00 11/24/18 23:00 92 21 130/80 (97) 92 Mechanical Ventilator 30.00 11/24/18 22:13 89 23 93 30 11/24/18 22:00 87 21 130/83 (99) 93 Mechanical Ventilator 30.00 11/24/18 21:36 38.2 11/24/18 21:05 Mechanical Ventilator 30.00 11/24/18 21:00 Mechanical Ventilator 30.00 11/24/18 21:00 88 17 120/70 (87) 91 Mechanical Ventilator 30.00 11/24/18 20:00 38.0 89 22 115/69 (84) 90 Mechanical Ventilator 25.00 11/24/18 20:00 87 21 115/69 (84) 91 Mechanical Ventilator 25.00 11/24/18 20:00 90 Mechanical Ventilator 25 11/24/18 19:00 75 11/24/18 19:00 74 22 123/71 (88) 91 Mechanical Ventilator 25.00 11/24/18 18:57 74 22 91 25 11/24/18 18:00 76 21 127/76 (93) 92 Mechanical Ventilator 25.00 11/24/18 17:00 80 21 115/71 (86) 93 Mechanical Ventilator 25.00 11/24/18 16:06 103/65 11/24/18 16:00 80 22 103/65 (78) 95 Mechanical Ventilator 25.00 11/24/18 16:00 Mechanical Ventilator 25 11/24/18 16:00 36.7 11/24/18 15:00 75 22 101/62 (75) 94 Mechanical Ventilator 25.00 11/24/18 14:13 37.1 115 93 11/24/18 14:09 83 11/24/18 14:00 85 98/61 (73) 100 Mechanical Ventilator 25.00 11/24/18 13:00 90 12 109/74 (86) 93 Mechanical Ventilator 25.00 11/24/18 12:32 36.58229 79 18 94/63 96 Mechanical Ventilator 60.00 11/24/18 12:00 82 20 87/55 (66) 94 Mechanical Ventilator 25.00 11/24/18 12:00 36.2 11/24/18 12:00 Mechanical Ventilator 25 11/24/18 11:22 85 20 91 35 11/24/18 11:16 75 11/24/18 11:00 71 25 105/70 (82) 97 Mechanical Ventilator 25.00 11/24/18 10:39 Mechanical Ventilator 25 11/24/18 10:27 68 20 99/73 99 Room Air 11/24/18 08:41 37.01113 109 22 109/72 97 Mechanical Ventilator 11/24/18 08:10 37.1 115 27 167/138 (148) 93 Non Rebreather I & O 11/25/18 07:00 Intake Total 6885 ml Output Total 3200 ml Balance 3685 ml Height & Weight Height: 5'9.00" Weight: 216lbs. 0.3oz. 97.772323zb; 30.00 BMI Method:Estimated General Appearance: No Apparent Distress, WD/WN, Other (sedated on vent) HEENT: Other (endotracheal tube in place) Neck: Non Tender, Supple Respiratory: Normal Breath Sounds, Decreased Breath Sounds, Other (intubated and mechanically ventilated) Cardiovascular: Regular Rate, Rhythm, No Edema, No Murmur Capillary Refill: Less Than 3 Seconds Extremity: Normal Inspection, No Pedal Edema Neurologic/Psychiatric: Other (sedated) Skin: Normal Color, Warm/Dry Lymphatic: No Adenopathy Results Lab Laboratory Tests 11/24/18 08:20 11/25/18 02:58 Assessment/Plan Assessment/Plan acute respiratory failure -Continue vent management -Will do weaning trial -Hx of acute respiratory failure 1 yr ago acute Seizures - with hx of seizures and frequent falls -Ativan 2-4mg IV Q 2PRN for seizures -Keppra 1gm IV BID -Montior -Seizure precautions Pneumonia with sepsis probably secondary to aspiration and probable acute seizure -Continue Zosyn -Enrique cultures Chronic renal failure -Monitor Anemia -Monitor Hx of MR, schizophrenia -Start Risperadol 1mg BID -PRN Haldol -restart home clonazepam JESSICA LEÓN DO Nov 25, 2018 05:36
[2018-11-25] MEDS: NOREPINEPHRINE 4 MG in NS (IVPB) 250 ML IV SCH ×3 (05:37→19:59)
[2018-11-25] MEDS: VASOPRESSIN INJECTION 20 UNIT in NORMAL SALINE 100 ML IV SCH ×3 (05:37→20:44)
[2018-11-25] MEDS: MAGNESIUM 1 GM/100 ML IVPB 100 ML IV SCH (05:38)
[2018-11-25] MEDS: POTASSIUM CL 10MEQ/50ML IVPB 50 ML IV SCH (05:38)
[2018-11-25] MEDS: KCL 20 MEQ TAB (K-DUR) PO SCH (05:38)
[2018-11-25] MEDS: inSUlin ASPART (NovoLOG) 1 UNIT/0.01 ML (CHARGE PER UNIT) SQ SCH ×3 (05:39→18:09)
[2018-11-25] MEDS: HYDROCORTISONE 100 MG/2 ML (Solu-CORTEF) VIAL IV SCH ×2 (05:40→14:17)
--- NOTE | 2018-11-25 08:08 | Physical Therapy Progress Note ---
Therapy Progress Note Patient is currently sedated and on vent. PT will continue to monitor patient status and will assess when medically stable and able to actively participate with skilled therapy. SHAINA AGUIRRE PT Nov 25, 2018 08:08
--- NOTE | 2018-11-25 08:17 | Occ Therapy Progress Note ---
Therapy Progress Note OT order received, chart reviewed. Pt. on ventilator support at this time. Will continue to monitor for skilled treatment. [id number] SANTIAGO GUTIÉRREZ OT Nov 25, 2018 08:17
[2018-11-25] MEDS: clonazePAM 1 MG (KlonoPIN) TAB PO SCH ×2 (08:21→20:43)
[2018-11-25] MEDS: VANCOMYCIN 1500 MG/NS 500 ML IVPB IV SCH ×2 (08:21)
[2018-11-25] MEDS: risperiDONE 1 MG (RisperDAL) TAB PO SCH ×2 (08:21→20:43)
[2018-11-25] MEDS: PIPERACILLIN/TAZO 4.5 GM/NS 100 ML IV SCH ×4 (08:21→14:17)
[2018-11-25] MEDS: D5 1/2 NS W/KCL 20 MEQ/L 1,000 ML IV SCH ×2 (08:21→14:18)
--- NOTE | 2018-11-25 09:01 | Diagnostic Imaging Report ---
INDICATION: Dyspnea. Comparison made with prior examination 11/24/2018. FINDINGS: Lines and tubes are in satisfactory position. There is cardiomegaly. There is venous congestion. There is left basilar atelectasis and/or pneumonitis. There is no pneumothorax. IMPRESSION: Left basilar atelectasis and/or pneumonitis. Cardiomegaly and mild central pulmonary venous congestion. Dictated by: Dictated on workstation # [id number]
--- NOTE | 2018-11-25 10:50 | NUR ---
CM/SS. Patient has established services through [facility] and resides in the home of Michelle So with her spouse and 6 children. There are 1-2 other residents residing there under this program as well. LEGAL: Patient has a court-appointed legal guardian, Mathieuveronica Arana. While patient was here in March of 2017, Court order was obtained through [facility] granting guardian consent to make patient a DNR/DNI and/or to withhold or withdraw life-saving or life-sustaining medical care, treatment, services, or procedures. Coal Mine Inspector confirmed with [facility] Bead Forming Machine Set Up Operator this a.m. that Order remains in effect. Michelle here at bedside, patient is intubated. She indicates extubation is planned for tomorrow. Explained legals as noted above, that patient supports would be apprised of situation but that guardian has legal authority regarding code status. Michelle indicated that she met with [facility] team yesterday and they support a DNR/DNI if that is appropriate to patient diagnosis/prognosis, but did indicate she would not favor the DNR unless patient was "critically ill." Assured her DNR did not mean care would be discontinued, only that if his heart stopped natural would be allowed. Updated Dr. Lam, call out to guardian without response at this time. Michelle plans to be here at 0500 tomorrow for vent wean and as support for patient. Patient reportedly has been undergoing psychotropic Rx changes and is more sleepy than usual. He has been using a wheelchair but was ambulatory prior to Rx changes. Michelle believes patient may exhibit more behaviors at this time because he has been off all psychotropics, hopeful balance an be restored. Patient is monitored through psychiatric telemed, [facility].
--- NOTE | 2018-11-25 13:00 | NUR ---
Initial visit with caregiver, Michelle. Pt intubated at this time. Michelle said she plans to be at the hospital tomorrow at 5am accompanied by her mother for pt's scheduled extubation. Michelle shared she has known the pt for 10 years. I offered active listening and encouraged free expression of thoughts and feelings. No spiritual affiliation.
[2018-11-25] MEDS: DEXMEDETOMIDINE INJECTION 1,000 MCG in NS (IVPB) 240 ML IV SCH (14:19)
--- NOTE | 2018-11-25 16:32 | Progress Note - Hospitalist ---
Subjective HPI/CC On Admission Date Seen by Provider: Nov 25, 2018 Time Seen by Provider: 08:15 altered mental status and hypoxia Subjective/Events-last exam He remains intubated and sedated. Focused Exam Lactate Level 11/24/18 08:20: Lactic Acid Level 0.92 11/24/18 12:59: Lactic Acid Level 1.93 Objective Exam Vital Signs Vital Signs Date Time Temp Pulse Resp B/P (MAP) Pulse Ox O2 Delivery O2 Flow Rate FiO2 11/25/18 16:00 38.1 77 22 142/89 (106) 92 11/25/18 14:36 30 11/25/18 12:00 Mechanical Ventilator 11/25/18 12:00 30.00 Capillary Refill : Less Than 3 SecondsLess Than 3 Seconds General Appearance: No Apparent Distress HEENT: PERRL/EOMI, Other (endotracheal tube in place) Neck: Normal Inspection, Supple Respiratory: Lungs Clear, Normal Breath Sounds, Other (intubated and mechanically ventilated) Cardiovascular: Regular Rate, Rhythm, No Edema Gastrointestinal: Normal Bowel Sounds, Soft Extremity: Normal Inspection, No Pedal Edema Neurologic/Psychiatric: Other (sedated) Skin: Normal Color, Warm/Dry Results/Procedures Lab Laboratory Tests 11/25/18 02:58 11/25/18 15:57 Patient resulted labs reviewed. 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 Hypernatremia [place] toxicity -Cr 0.9, down from 1.5 on admission -Na 149, up from 141 on admission -[place] 1.7 -Transition from LR to D5W -Repeat Na tomorrow morning Seizure disorder -Continue Keppra Schizophrenia -Started Risperdal and Klonopin -Started Precedex, weaning Propofol as tolerated -Plan to attempt extubation tomorrow if able Critical Care Critically Ill Patient Diagnosis/Problems Diagnosis/Problems (1) Septic shock Status: Resolved Resolution Date/Time: 11/25/18 @ 16:32 (2) Bilateral pneumonia Status: Acute Qualifiers: Pneumonia type: due to unspecified organism Lung location: lower lobe of lung Qualified Codes: J18.1 - Lobar pneumonia, unspecified organism (3) Acute respiratory failure with hypoxia and hypercapnia Status: Acute (4) Acute kidney injury Status: Resolved Resolution Date/Time: 11/25/18 @ 16:33 (5) Mental retardation Status: Chronic (6) Paranoid schizophrenia Status: Chronic (7) Seizure disorder Status: Acute (8) Hypernatremia Status: Acute (9) [place] toxicity Status: Acute Clinical Quality Measures DVT/VTE Risk/Contraindication: Risk Factor Score Per Nursin RFS Level Per Nursing on Admit: 4+=Very High DOUG WHATLEY MD Nov 25, 2018 16:32
[2018-11-25] MEDS: D5W 1000 ML IV SOLUTION 1,000 ML IV SCH (17:12)
[2018-11-25] MEDS: inSUlin ASPART (NovoLOG) 1 UNIT/0.01 ML (CHARGE PER UNIT) SC SCH (19:59)
--- NOTE | 2018-11-25 20:16 | NUR ---
THIS NURSE NOTIFIED E-ICU PT HAS A TEMPERATURE OF 38.6 DEGREES C. PT IS ON ZOSYN AND HAS HAD BLOOD AND SPUTUM CULTURES COLLECTED. ORDERS TO COME.
[2018-11-25] MEDS ORDERED: ACETAMINOPHEN 325 MG TABLET ONE (21:19)
--- NOTE | 2018-11-25 22:10 | NUR ---
THIS NURSE NOTIFIED E-ICU THAT PT BP WAS ELEVATED IN THE 170S-180 SBP. ORDERS FAXED.
[2018-11-25] MEDS ORDERED: ACETAMINOPHEN 325 MG TABLET PO PRN (22:30)
[2018-11-25] MEDS: hydrALAZINE (APESOLINE) 20 MG/ML VIAL IV PRN (22:38)
[2018-11-25] MEDS ORDERED: NS (IVPB) 50 ML ONE (23:54)
[2018-11-26] VITALS (29 sets, daily range): BP systolic 108–164; BP diastolic 74–110
[2018-11-26] MEDS ORDERED: NS (IVPB) 50 ML ONE ×4 (00:04→07:10)
[2018-11-26] MEDS: DEXMEDETOMIDINE INJECTION 1,000 MCG in NS (IVPB) 240 ML IV SCH ×5 (00:06→07:20)
[2018-11-26] MEDS: PIPERACILLIN/TAZO 4.5 GM/NS 100 ML IV SCH ×6 (00:16→16:56)
[2018-11-26] MEDS: HYDROCORTISONE 100 MG/2 ML (Solu-CORTEF) VIAL IV SCH ×4 (00:16→18:39)
[2018-11-26] MEDS: PROPOFOL DRIP (ICU) 100 ML IV SCH (00:17)
[2018-11-26] MEDS: inSUlin ASPART (NovoLOG) 1 UNIT/0.01 ML (CHARGE PER UNIT) SQ SCH ×4 (00:23→18:30)
[2018-11-26] MEDS: RT-ALBUTEROL/IPRATROPIUM 3 ML (DUONEB) VIAL INH SCH ×6 (01:17→21:47)
[2018-11-26] MEDS: LEVETIRACETAM INJECTION 1,000 MG in NS (IVPB) 100 ML IV SCH ×2 (02:06→14:04)
[2018-11-26] MEDS: NOREPINEPHRINE 4 MG in NS (IVPB) 250 ML IV SCH ×2 (02:09→12:49)
[2018-11-26] MEDS: D5W 1000 ML IV SOLUTION 1,000 ML IV SCH ×3 (02:13→20:45)
--- NOTE | 2018-11-26 03:00 | NUR ---
THIS NURSE NOTIFIED E-ICU THAT PT SBP WAS STILL IN THE 160S SBP AND IT WAS TOO SOON TO GIVE MORE HYDRALAZINE. ADVISED TO KEEP MONITORING AND TO CALL BACK IF SBP IS GREATER THAN 170 SBP.
[2018-11-26 03:27] LABS: ABG BASE EXCESS 1.3 MMOL/L (-2.5-2.5); ABG OXYGEN SATURATION 97 % (94-100); ABG PCO2 38 MMHG (35-45); ABG PH 7.44 (7.37-7.43); ABG PO2 94 MMHG (79-93); ABG TCO2 26.5 MMOL/L (21.0-31.0)
[2018-11-26 03:29] LABS: ALLENS TEST YES-POS; INSPIRED O2 30; PATIENT TEMP 36.4; VENTILATOR YES
[2018-11-26 03:29] LABS: BASOPHILS % (AUTO) 0 % (0-10); EOSINOPHILS % (AUTO) 0 % (0-10); HEMATOCRIT 38 % (40-54); HEMOGLOBIN 11.8 G/DL (13.3-17.7); LYMPHOCYTES # (AUTO) 1.7 X 10^3 (1.0-4.0); LYMPHOCYTES % (AUTO) 12 % (12-44); MEAN CORPUSCULAR HEMOGLOBIN 26 PG (25-34); MEAN CORPUSCULAR HGB CONC 31 G/DL (32-36); MEAN CORPUSCULAR VOLUME 84 FL (80-99); MEAN PLATELET VOLUME 9.6 FL (7.4-10.4); MONOCYTES # (AUTO) 1.4 X 10^3 (0.0-1.0); MONOCYTES % (AUTO) 10 % (0-12); NEUTROPHILS # (AUTO) 10.7 X 10^3 (1.8-7.8); NEUTROPHILS % (AUTO) 77 % (42-75); PLATELET COUNT 218 10^3/uL (130-400); RED CELL DISTRIBUTION WIDTH 18.1 % (10.0-14.5); WHITE BLOOD COUNT 13.8 10^3/uL (4.3-11.0)
[2018-11-26 03:49] LABS: BUN/CREATININE RATIO 11; CALCIUM 7.9 MG/DL (8.5-10.1); CARBON DIOXIDE 24 MMOL/L (21-32); CHLORIDE 112 MMOL/L (98-107); CREATININE SERUM 0.75 MG/DL (0.60-1.30); GFR ESTIMATED > 60; GLUCOSE 177 MG/DL (70-105); MAGNESIUM 2.5 MG/DL (1.6-2.4); PHOSPHORUS 2.9 MG/DL (2.3-4.7); SODIUM 146 MMOL/L (135-145); TRIGLYCERIDES 303 MG/DL (<150)
[2018-11-26] MEDS: KCL 20 MEQ TAB (K-DUR) PO SCH (03:59)
[2018-11-26] MEDS: POTASSIUM CL 10MEQ/50ML IVPB 50 ML IV SCH ×15 (03:59→23:05)
[2018-11-26] MEDS: MAGNESIUM 1 GM/100 ML IVPB 100 ML IV SCH (03:59)
[2018-11-26] MEDS ORDERED: POTASSIUM CL 10MEQ/50ML IVPB 50 ML IV ONE (04:00)
[2018-11-26] MEDS: hydrALAZINE (APESOLINE) 20 MG/ML VIAL IV PRN (04:39)
[2018-11-26] MEDS: inSUlin ASPART (NovoLOG) 1 UNIT/0.01 ML (CHARGE PER UNIT) SC SCH ×3 (04:51→18:30)
[2018-11-26] MEDS: VASOPRESSIN INJECTION 20 UNIT in NORMAL SALINE 100 ML IV SCH ×2 (05:32→15:19)
--- NOTE | 2018-11-26 05:40 | Diagnostic Imaging Report ---
EXAMINATION: Portable erect AP chest at 8:04 PM INDICATION: Dyspnea FINDINGS: There is shallow inspiration when compared to the prior exam of 11/25/2018. Allowing for this technical factor, the heart is enlarged but stable. The atelectasis/infiltrate in the left lung base seen previously is essentially no different. The left hilum does seem more prominent than on the prior exam. Conversely the right hilum is not as striking. The left upper lung and right lung are generally clear. The mediastinum is prominent but no different than on the previous exam. The osseous structures are intact. The supportive tubes and lines are stable in position. IMPRESSION: When compared to the previous study, there does not appear to have been any significant change. No new abnormality has developed. Dictated by: Dictated on workstation # [id number]
[2018-11-26] MEDS ORDERED: FUROSEMIDE 40 MG/4 ML INJ (LASIX) ONE (07:36)
[2018-11-26] MEDS ORDERED: ANIDULAFUNGIN INJECTION 200 MG in NS (IVPB) 250 ML IV NR (07:37)
--- NOTE | 2018-11-26 07:38 | Pulmonary Progress Note ---
Subjective Time Seen by a Provider: 07:37 Subjective/Events-last exam Sedated on vent. Sepsis Event Evaluation Height, Weight, BMI Height: 5'9.00" Weight: 227lbs. 0.7oz. 102.985015vb; 30.00 BMI Method:Estimated Focused Exam Lactate Level 11/24/18 08:20: Lactic Acid Level 0.92 11/24/18 12:59: Lactic Acid Level 1.93 Exam Exam Vital Signs Date Time Temp Pulse Resp B/P (MAP) Pulse Ox O2 Delivery O2 Flow Rate FiO2 11/26/18 06:45 88 15 158/101 (120) 96 Mechanical Ventilator 30.00 11/26/18 06:27 84 17 96 30 11/26/18 06:00 75 21 150/100 (117) 96 Mechanical Ventilator 30.00 11/26/18 05:00 79 22 145/96 (112) 96 Mechanical Ventilator 30.00 11/26/18 04:00 65 21 163/108 (126) 97 Mechanical Ventilator 30.00 11/26/18 03:51 36.4 11/26/18 03:47 Mechanical Ventilator 30 11/26/18 03:00 63 21 164/110 (128) 97 Mechanical Ventilator 30.00 11/26/18 02:00 70 21 163/106 (125) 96 Mechanical Ventilator 30.00 11/26/18 01:18 37.6 11/26/18 01:17 70 22 96 30 11/26/18 01:00 71 22 157/101 (119) 96 Mechanical Ventilator 30.00 11/26/18 01:00 71 11/26/18 00:17 154/99 11/26/18 00:00 Mechanical Ventilator 30 11/26/18 00:00 81 24 153/96 (115) 96 Mechanical Ventilator 30.00 11/25/18 22:27 37.8 11/25/18 22:00 77 22 178/113 (134) 97 Mechanical Ventilator 30.00 11/25/18 21:53 76 22 97 30 11/25/18 21:00 78 21 169/99 (122) 96 Mechanical Ventilator 30.00 11/25/18 20:00 91 19 159/95 (116) 95 Mechanical Ventilator 30.00 11/25/18 20:00 38.6 11/25/18 20:00 Mechanical Ventilator 30 11/25/18 19:00 92 22 159/95 (116) 95 Mechanical Ventilator 30.00 11/25/18 19:00 93 11/25/18 18:12 71 22 96 30 11/25/18 18:00 71 21 160/103 (122) 96 Mechanical Ventilator 30.00 11/25/18 17:00 76 21 152/96 (114) 94 Mechanical Ventilator 30.00 11/25/18 16:00 38.1 77 22 142/89 (106) 92 11/25/18 16:00 92 Mechanical Ventilator 30 11/25/18 15:00 82 22 128/76 (93) 92 Mechanical Ventilator 30.00 11/25/18 14:36 78 22 93 30 11/25/18 14:00 98 19 119/68 (85) 94 Mechanical Ventilator 30.00 11/25/18 13:00 97 11/25/18 13:00 97 21 116/66 (83) 93 Mechanical Ventilator 30.00 11/25/18 12:00 36.9 11/25/18 12:00 92 Mechanical Ventilator 30 11/25/18 12:00 84 21 109/68 (82) 93 Mechanical Ventilator 30.00 11/25/18 11:00 101 22 140/97 (111) 93 Mechanical Ventilator 30.00 11/25/18 10:54 98 22 93 30 11/25/18 10:00 104 47 124/81 (95) 97 Mechanical Ventilator 30.00 11/25/18 09:00 70 21 115/70 (85) 94 Mechanical Ventilator 30.00 11/25/18 08:49 70 22 94 30 11/25/18 08:22 73 11/25/18 08:22 73 11/25/18 08:00 76 21 118/74 (89) 93 Mechanical Ventilator 30.00 11/25/18 08:00 92 Mechanical Ventilator 30 I & O 11/26/18 07:00 Intake Total 480 ml Output Total 2925 ml Balance -2445 ml Height & Weight Height: 5'9.00" Weight: 227lbs. 0.7oz. 102.022767mu; 30.00 BMI Method:Estimated General Appearance: No Apparent Distress, Other (sedated on vent) HEENT: PERRL/EOMI, Other (endotracheal tube in place) Neck: Normal Inspection, Supple Respiratory: Lungs Clear, Normal Breath Sounds, Other (intubated and mechanically ventilated) Cardiovascular: Regular Rate, Rhythm, No Edema Capillary Refill: Less Than 3 Seconds Extremity: Normal Inspection, No Pedal Edema Neurologic/Psychiatric: Other (sedated) Skin: Normal Color, Warm/Dry Lymphatic: No Adenopathy Results Lab Laboratory Tests 11/24/18 08:20 11/25/18 02:58 11/25/18 15:57 11/26/18 03:22 Assessment/Plan Assessment/Plan acute respiratory failure -Continue vent management -Will do weaning trial today -Hx of acute respiratory failure 1 yr ago acute Seizures - with hx of seizures and frequent falls -Ativan 2-4mg IV Q 2PRN for seizures -Keppra 1gm IV BID -Montior -Seizure precautions Pneumonia with sepsis probably secondary to aspiration and probable acute seizure -Start Eraxis secondary to yeast in sputum -Continue Zosyn -Enrique cultures Chronic renal failure -Monitor Anemia -Monitor Hx of MR, schizophrenia - Risperadol 1mg BID -PRN Haldol -restart home clonazepam JESSICA LEÓN DO Nov 26, 2018 07:38
[2018-11-26] MEDS ORDERED: FUROSEMIDE 40 MG/4 ML INJ (LASIX) IVP NR (07:47)
--- NOTE | 2018-11-26 07:50 | Physical Therapy Progress Note ---
Therapy Progress Note Patient is currently sedated and on ventilator. PT to assess when medically stable and able to actively participate with skilled therapy. SHAINA AGUIRRE PT Nov 26, 2018 07:50
[2018-11-26] MEDS: clonazePAM 1 MG (KlonoPIN) TAB PO SCH ×2 (07:51→20:45)
[2018-11-26] MEDS: risperiDONE 1 MG (RisperDAL) TAB PO SCH ×2 (07:51→20:44)
[2018-11-26] MEDS: meTOprolol TARTRATE 25 MG (LOPRESSOR) TABLET PO SCH ×2 (07:51→20:44)
[2018-11-26] MEDS: hydrALAZINE (APESOLINE) 20 MG/ML VIAL IV SCH ×4 (07:52→20:43)
--- NOTE | 2018-11-26 09:40 | Occ Therapy Progress Note ---
Therapy Progress Note Pt. on ventilator support. Will continue to monitor for skilled treatment and initiate therapy as appropriate. JORDEN SERRANO OT Nov 26, 2018 09:40
[2018-11-26 15:18] LABS: ABG BASE EXCESS 3.8 MMOL/L (-2.5-2.5); ABG OXYGEN SATURATION 96 % (94-100); ABG PCO2 39 MMHG (35-45); ABG PH 7.46 (7.37-7.43); ABG PO2 74 MMHG (79-93); ABG TCO2 28.8 MMOL/L (21.0-31.0)
[2018-11-26 15:23] LABS: ALLENS TEST POSITIVE; INSPIRED O2 24%; PATIENT TEMP 36.2; VENTILATOR YES
--- NOTE | 2018-11-26 15:31 | NUR ---
PATIENT EXTUBATED AT THIS TIME BY RT HOUSE FROM ORDERS VIA DR. LEÓN. PATIENT PLACED ON 5L HF NC, RESTRAINTS REMOVED AT THIS TIME.
--- NOTE | 2018-11-26 16:07 | NUR ---
CM/SS. Visited with legal guardian this a.m.: Mathieu Arana GUARDITIFFANIE phone: [phone] Guardian Sumit indicated his agreement for DNR and/or DNI based upon medical judgment of Dr. Lam and other involved physicians. This was communicated to Dr. Lam this a.m. EMR reflects that patient was extubated moments ago, his status remains full code. Supervisor Doping did call his caregiver Michelle So and she was on her way to hospital bedside along with [facility] team members as support to patient for extubation process. There appears some disconnect between patient's locals and Mr. Arana in [facility] in that he has been difficult for them to consistently communicate with regarding decisions and needs. While the local care team and supports are invested fully on behalf of patient, the Guardian has full authority to make decisions for patient's care plan based on overall diagnosis, prognosis and presentation of course of illness by physicians and clinical providers. Best practice would be for full and open communication among all players, including [facility] and Guardian.
--- NOTE | 2018-11-26 17:00 | Progress Note - Hospitalist ---
Subjective HPI/CC On Admission Date Seen by Provider: Nov 26, 2018 Time Seen by Provider: 08:30 altered mental status and hypoxia Subjective/Events-last exam He remains intubated and sedated. He has not been agitated. Focused Exam Lactate Level 11/24/18 08:20: Lactic Acid Level 0.92 11/24/18 12:59: Lactic Acid Level 1.93 Objective Exam Vital Signs Vital Signs Date Time Temp Pulse Resp B/P (MAP) Pulse Ox O2 Delivery O2 Flow Rate FiO2 11/26/18 16:00 36.3 11/26/18 16:00 High Flow N/C 3.00 11/26/18 15:00 87 12 120/84 (96) 96 11/26/18 14:11 24 Capillary Refill : Less Than 3 SecondsLess Than 3 Seconds General Appearance: No Apparent Distress, WD/WN, Other (intubated and sedated) Respiratory: Lungs Clear, Normal Breath Sounds, No Respiratory Distress, Other (intubated and mechanically ventilated) Cardiovascular: Regular Rate, Rhythm, No Edema, No Murmur Gastrointestinal: Normal Bowel Sounds, Non Tender, Soft Extremity: Normal Inspection, No Pedal Edema Neurologic/Psychiatric: Other (sedated) Skin: Normal Color, Warm/Dry Results/Procedures Lab Laboratory Tests 11/26/18 03:22 Patient resulted labs reviewed. 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 Hypernatremia [place] toxicity -Cr improved, 0.75 today from 1.5 on admission -Na 146, improving -Continue D5W Seizure disorder -Continue Keppra Schizophrenia -Continue Risperdal and Klonopin -Weaning Precedex for possible extubation today Critical Care Critically Ill Patient Diagnosis/Problems Diagnosis/Problems (1) Septic shock Status: Resolved Resolution Date/Time: 11/25/18 @ 16:32 (2) Bilateral pneumonia Status: Acute Qualifiers: Pneumonia type: due to unspecified organism Lung location: lower lobe of lung Qualified Codes: J18.1 - Lobar pneumonia, unspecified organism (3) Acute respiratory failure with hypoxia and hypercapnia Status: Acute (4) Acute kidney injury Status: Resolved Resolution Date/Time: 11/25/18 @ 16:33 (5) Mental retardation Status: Chronic (6) Paranoid schizophrenia Status: Chronic (7) Seizure disorder Status: Acute (8) Hypernatremia Status: Acute (9) [place] toxicity Status: Acute Clinical Quality Measures DVT/VTE Risk/Contraindication: Risk Factor Score Per Nursin RFS Level Per Nursing on Admit: 4+=Very High DOUG WHATLEY MD Nov 26, 2018 17:00
[2018-11-26] MEDS ORDERED: ACETAMINOPHEN 325 MG TABLET PO PRN (17:15)
[2018-11-26] MEDS ORDERED: BISACODYL 10 MG SUPP (DULCOLAX) PR PRN (17:15)
[2018-11-26] MEDS ORDERED: POLYETHYLENE GLYCOL 17 GM (MIRALAX) PACK PO PRN (17:15)
[2018-11-26] MEDS ORDERED: ONDANSETRON 4 MG (ZOFRAN) ORAL DISSOLVE TAB PO PRN (17:15)
[2018-11-26] MEDS ORDERED: ONDANSETRON 4 MG/2 ML (SDV) Z0FRAN IVP PRN (17:15)
[2018-11-26 17:41] LABS: BUN/CREATININE RATIO 13; CALCIUM 8.2 MG/DL (8.5-10.1); CARBON DIOXIDE 29 MMOL/L (21-32); CHLORIDE 109 MMOL/L (98-107); CREATININE SERUM 0.68 MG/DL (0.60-1.30); GFR ESTIMATED > 60; GLUCOSE 141 MG/DL (70-105); MAGNESIUM 2.3 MG/DL (1.6-2.4); PHOSPHORUS 3.1 MG/DL (2.3-4.7); POTASSIUM 3.3 MMOL/L (3.6-5.0); SODIUM 146 MMOL/L (135-145)
[2018-11-26] MEDS: DOCUSATE SODIUM 100 MG (COLACE) CAP PO SCH (20:44)
[2018-11-26] MEDS: SENNA W/DOCUSATE (SENOKOT S) TABLET PO SCH (20:44)
[2018-11-27] VITALS (13 sets, daily range): BP systolic 105–159; BP diastolic 62–104
[2018-11-27] MEDS: PIPERACILLIN/TAZO 4.5 GM/NS 100 ML IV SCH ×6 (00:11→16:51)
[2018-11-27] MEDS: HYDROCORTISONE 100 MG/2 ML (Solu-CORTEF) VIAL IV SCH ×2 (00:11→06:11)
[2018-11-27] MEDS: RT-ALBUTEROL/IPRATROPIUM 3 ML (DUONEB) VIAL INH SCH ×6 (01:44→20:40)
[2018-11-27] MEDS: LEVETIRACETAM INJECTION 1,000 MG in NS (IVPB) 100 ML IV SCH (02:09)
[2018-11-27 04:05] LABS: BASOPHILS % (AUTO) 0 % (0-10); EOSINOPHILS % (AUTO) 0 % (0-10); HEMATOCRIT 37 % (40-54); HEMOGLOBIN 11.6 G/DL (13.3-17.7); LYMPHOCYTES # (AUTO) 1.9 X 10^3 (1.0-4.0); LYMPHOCYTES % (AUTO) 14 % (12-44); MEAN CORPUSCULAR HEMOGLOBIN 27 PG (25-34); MEAN CORPUSCULAR HGB CONC 31 G/DL (32-36); MEAN CORPUSCULAR VOLUME 85 FL (80-99); MEAN PLATELET VOLUME 9.3 FL (7.4-10.4); MONOCYTES # (AUTO) 1.2 X 10^3 (0.0-1.0); MONOCYTES % (AUTO) 8 % (0-12); NEUTROPHILS # (AUTO) 10.7 X 10^3 (1.8-7.8); NEUTROPHILS % (AUTO) 78 % (42-75); PLATELET COUNT 255 10^3/uL (130-400); RED CELL DISTRIBUTION WIDTH 18.8 % (10.0-14.5); WHITE BLOOD COUNT 13.7 10^3/uL (4.3-11.0)
[2018-11-27 04:23] LABS: BUN/CREATININE RATIO 15; CALCIUM 8.1 MG/DL (8.5-10.1); CARBON DIOXIDE 26 MMOL/L (21-32); CHLORIDE 109 MMOL/L (98-107); CREATININE SERUM 0.67 MG/DL (0.60-1.30); GFR ESTIMATED > 60; GLUCOSE 134 MG/DL (70-105); MAGNESIUM 2.2 MG/DL (1.6-2.4); PHOSPHORUS 2.8 MG/DL (2.3-4.7); POTASSIUM 3.2 MMOL/L (3.6-5.0); SODIUM 147 MMOL/L (135-145)
[2018-11-27] MEDS: hydrALAZINE (APESOLINE) 20 MG/ML VIAL IV SCH ×2 (04:40)
[2018-11-27] MEDS: MAGNESIUM 1 GM/100 ML IVPB 100 ML IV SCH (04:41)
[2018-11-27] MEDS: POTASSIUM CL 10MEQ/50ML IVPB 50 ML IV SCH ×4 (04:41→06:12)
[2018-11-27] MEDS: KCL 20 MEQ TAB (K-DUR) PO SCH (04:41)
--- NOTE | 2018-11-27 07:07 | Pulmonary Progress Note ---
Subjective Time Seen by a Provider: 07:02 Subjective/Events-last exam Pt extubated yesterday. Appears to be doing well off vent. Sepsis Event Evaluation Height, Weight, BMI Height: 5'9.00" Weight: 225lbs. 5.0oz. 102.600555kq; 30.00 BMI Method:Estimated Focused Exam Lactate Level 11/24/18 08:20: Lactic Acid Level 0.92 11/24/18 12:59: Lactic Acid Level 1.93 Exam Exam Vital Signs Date Time Temp Pulse Resp B/P (MAP) Pulse Ox O2 Delivery O2 Flow Rate FiO2 11/27/18 06:20 36.6 105 95 11/27/18 06:20 95 Nasal Cannula 2.00 11/27/18 06:00 104 16 143/92 (109) 94 High Flow N/C 2.00 11/27/18 05:00 104 15 133/94 (107) 94 High Flow N/C 2.00 11/27/18 04:00 113 15 159/104 (122) 92 High Flow N/C 2.00 11/27/18 04:00 High Flow N/C 3.00 11/27/18 03:46 36.6 11/27/18 03:00 102 15 140/94 (109) 92 High Flow N/C 2.00 11/27/18 02:00 100 18 135/93 (107) 95 High Flow N/C 2.00 11/27/18 01:54 95 Nasal Cannula 3.00 11/27/18 01:00 89 14 131/91 (104) 96 High Flow N/C 3.00 11/27/18 01:00 89 11/27/18 00:00 High Flow N/C 3.00 11/27/18 00:00 91 17 132/96 (108) 96 High Flow N/C 3.00 11/26/18 23:57 36.3 11/26/18 23:00 89 17 134/96 (109) 97 High Flow N/C 3.00 11/26/18 23:00 36.3 11/26/18 22:00 87 12 125/89 (101) 97 High Flow N/C 3.00 11/26/18 21:47 97 Nasal Cannula 3.00 11/26/18 21:00 109 20 120/95 (103) 95 High Flow N/C 3.00 11/26/18 20:00 101 19 122/83 (96) 93 High Flow N/C 3.00 11/26/18 20:00 High Flow N/C 3.00 11/26/18 20:00 36.7 11/26/18 19:20 95 Nasal Cannula 3.00 11/26/18 19:00 110 11/26/18 19:00 112 15 129/87 (101) 95 High Flow N/C 3.00 11/26/18 18:00 106 17 132/82 (99) 97 High Flow N/C 3.00 11/26/18 17:00 93 15 148/88 (108) 95 High Flow N/C 3.00 11/26/18 16:00 89 16 131/84 (100) 97 High Flow N/C 3.00 11/26/18 16:00 36.3 11/26/18 16:00 High Flow N/C 3.00 11/26/18 15:59 High Flow N/C 3.00 11/26/18 15:42 High Flow N/C 5.00 11/26/18 15:00 87 12 120/84 (96) 96 Mechanical Ventilator 24.00 11/26/18 14:11 80 14 95 24 11/26/18 14:00 80 15 121/80 (94) 95 Mechanical Ventilator 24.00 11/26/18 13:07 85 11/26/18 13:00 84 16 113/78 (90) 95 Mechanical Ventilator 24.00 11/26/18 12:00 81 13 108/74 (85) 95 Mechanical Ventilator 24.00 11/26/18 12:00 Mechanical Ventilator 30 11/26/18 12:00 36.8 11/26/18 11:00 86 12 119/79 (92) 95 Mechanical Ventilator 24.00 11/26/18 10:07 Mechanical Ventilator 24.00 11/26/18 10:02 83 16 96 30 11/26/18 10:00 83 15 124/85 (98) 96 Mechanical Ventilator 30.00 11/26/18 09:00 83 14 122/82 (95) 96 Mechanical Ventilator 30.00 11/26/18 08:00 75 13 159/107 (124) 96 Mechanical Ventilator 30.00 11/26/18 08:00 Mechanical Ventilator 30 11/26/18 07:53 36.4 I & O 11/27/18 07:00 Intake Total 1410 ml Output Total 6275 ml Balance -4865 ml Height & Weight Height: 5'9.00" Weight: 225lbs. 5.0oz. 102.303089au; 30.00 BMI Method:Estimated General Appearance: No Apparent Distress, WD/WN HEENT: PERRL/EOMI Neck: Normal Inspection, Supple Respiratory: Lungs Clear, Normal Breath Sounds, No Respiratory Distress Cardiovascular: Regular Rate, Rhythm, No Edema, No Murmur Capillary Refill: Less Than 3 Seconds Gastrointestinal: normal bowel sounds, non tender, soft Extremity: Normal Inspection, No Pedal Edema Neurologic/Psychiatric: Other (sedated) Skin: Normal Color, Warm/Dry Lymphatic: No Adenopathy Results Lab Laboratory Tests 11/25/18 15:57 11/26/18 03:22 11/26/18 17:15 11/27/18 03:42 Assessment/Plan Assessment/Plan acute respiratory failure - improved -Extubated 11/26 acute Seizures - with hx of seizures and frequent falls -Ativan PRN for seizures -Keppra 1gm IV BID -Montior -Seizure precautions Pneumonia with sepsis probably secondary to aspiration and probable acute seizure -Start Eraxis secondary to yeast in sputum -Continue Zosyn -Enrique cultures Chronic renal failure -Monitor Anemia -Monitor Hx of MR, schizophrenia - Risperadol 1mg BID -PRN Haldol - home clonazepam Will transfer to 4th floor. JESSICA LEÓN DO Nov 27, 2018 07:07
--- NOTE | 2018-11-27 09:06 | Diagnostic Imaging Report ---
INDICATION: Dyspnea COMPARISON: 11/26/2018 TECHNIQUE: Single radiograph of the chest dated 11/27/2018 FINDINGS: Interval extubation and removal of enteric catheter. Right IJ central venous catheter is stable. The cardiac silhouette is enlarged, though stable. Significantly low lung volumes with perihilar and bibasilar pulmonary opacities which are slightly worsened since the prior examination. No significant pleural effusion. No pneumothorax. No acute osseous abnormality. IMPRESSION: Interval extubation and removal of enteric catheter. Decreased lung volumes with worsening perihilar and bibasilar atelectasis and/or pneumonitis. Dictated by: Dictated on workstation # [id number]
[2018-11-27] MEDS: SENNA W/DOCUSATE (SENOKOT S) TABLET PO SCH ×2 (09:32→21:45)
[2018-11-27] MEDS: clonazePAM 1 MG (KlonoPIN) TAB PO SCH ×2 (09:32→21:45)
[2018-11-27] MEDS: ANIDULAFUNGIN INJECTION 100 MG in NS (IVPB) 100 ML IV SCH (09:32)
[2018-11-27] MEDS: meTOprolol TARTRATE 25 MG (LOPRESSOR) TABLET PO SCH ×2 (09:33→21:45)
[2018-11-27] MEDS: risperiDONE 1 MG (RisperDAL) TAB PO SCH ×2 (09:33→21:45)
[2018-11-27] MEDS: DOCUSATE SODIUM 100 MG (COLACE) CAP PO SCH ×2 (09:33→21:45)
--- NOTE | 2018-11-27 10:12 | Occupational Therapy Eval ---
OT Evaluation-General/PLF Medical Diagnosis Admission Date Nov 24, 2018 at 09:45 Medical Diagnosis: bilat pneumonia, resp failure Onset Date: Nov 24, 2018 Therapy Diagnosis Therapy Diagnosis: decr self care, weakness, decr funct mobility, decr act stephie Height/Weight Height (Feet): 5 Height (Inches): 9.00 Weight (Pounds): 225 Weight (Ounces): 5.0 Precautions Precautions/Isolations: Aspiration, Seizure, Fall Prevention, Standard Precautions Safety Interventions: Bed Exit Alarm Referral Physician: Carole Referral Reason: Evaluation/Treatment Medical History Pertinent Medical History: GERD, HTN, Smoking Additional Medical History MR, intermittent explosive behavior, schizophrenia, depression. Seizure disorder. Chronic renal failure, anemia. Chronic constipation Current History Admitted with bilat pneumonia and resp failure with hypoxia. Initially on vent. Concerns for aspiration Reviewed History: Yes Social History Home: Lives with caregiver and family. [facility] client ADL-Prior Level of Function Therapy Code Descriptions/Definitions Functional [place] Measure: 0=Not Assessed/NA 4=Minimal Assistance 1=Total Assistance 5=Supervision or Setup 2=Maximal Assistance 6=Modified [place] 3=Moderate Assistance 7=Complete [place] Therapy Quality Codes: 6 Independent with activity with or without an assistive device 5 Patient requires set up or clean up by helper. Patient completes activity by themselves 4 Supervision or touching assist (CGA). [place] provide cues , steadying assist 3 The helper provides less than half the effort to complete the activity 2 The helper provides more than half the effort to complete the activity 1 Dependent. The helper does all the effort to complete an activity 7 Patient refused to complete or attempt activity 9 The patient did not perform the activity before the current illness or injury 88 Not attempted due to Medical conditions or safety concerns Functional Abilities and Goals: Independent: Patient completed the activities by him/herself, with or without an assistive device, with no assistance from a helper. Needed Some Help: Patient needed partial assistance from another person to complete activities. Dependent: A helper completed the activities for the patient. Unknown: Not Applicable: ADL PLOF Comments Pt reported that he is able to dress himself, take himself to the bathroom, shower with assistance but unsure if he is good historian on prior functional status. OT Current Status Subjective Pt seen in room, up in bed, agreeable to OT. No pain mentioned. Appearance Pleasant, cooperative Mental Status/Objective Patient Orientation: Person (and ) Attachments: Central Line, Oxygen, Telemetry Current Upper Extremity ROM Pt was able to follow instructions to assess AROM bilat UE (appears grossly WFL) but unable to follow instructions for strength testing. pt unable to report if he wears glasses, has dentures. ADL-Treatment ADL-Current Nursing reported that pt required feeding. He was handed a glass with straw and was unable to get a drink by himself. Therapy Code Descriptions/Definitions Functional [place] Measure: 0=Not Assessed/NA 4=Minimal Assistance 1=Total Assistance 5=Supervision or Setup 2=Maximal Assistance 6=Modified [place] 3=Moderate Assistance 7=Complete [place] Therapy Quality Codes: 6 Independent with activity with or without an assistive device 5 Patient requires set up or clean up by helper. Patient completes activity by themselves 4 Supervision or touching assist (CGA). [place] provide cues , steadying assist 3 The helper provides less than half the effort to complete the activity 2 The helper provides more than half the effort to complete the activity 1 Dependent. The helper does all the effort to complete an activity 7 Patient refused to complete or attempt activity 9 The patient did not perform the activity before the current illness or injury 88 Not attempted due to Medical conditions or safety concerns Education OT Patient Education: Purpose of tx/functional activities, Rehab process Teaching Recipient: Patient Teaching Methods: Discussion Response to Teaching: Reinforcement Needed OT [facility]ci Goals Body Hanger Goals Time Frame: Dec 04, 2018 Eating (FIM): 5 Grooming(FIM): 5 Will add additional ADL goals as indicated by functional performance Additional Goals: 1-Demonstrate ADL Tasks, 2-Verbalize Understanding, 3- ImproveStrength/Shante 1=Demonstrate adherence to instructed precautions during ADL tasks. 2=Patient will verbalize/demonstrate understanding of assistive devices/cathryn fications for ADL. 3=Patient will improve strength/tolerance for activity to enable patient to perform ADL's. OT Education/Plan Problem List/Assessment Assessment: Decreased Safety Aware, Decreased UE Strength, Dependent Transfers, Impaired Cognition, Impaired Self-Care Skills Pt would benefit from skilled OT to icrease his independence ini basic self care to allow him to safely return home. Discharge Recommendations Plan/Recommendations: Continue POC Treatment Plan/Plan of Care Treatment,Training & Education: Yes Patient would benefit from OT for education, treatment and training to promote independence in ADL's, mobility, safety and/or upper extremity function for ADL's. Plan of Care: ADL Retraining, Functional Mobility, UE Funct Exercise/Act, UE N euromus Re-Ed/Coord Treatment Duration: Dec 04, 2018 Frequency: 5 times per week Estimated Hrs Per Day: .25 hour per day Agreement: Yes Rehab Potential: Poor Time/GCodes Start Time: 09:45 Stop Time: 09:55 Total Time Billed (hr/min): 10 Billed Treatment Time visit, evaluation moderate intensity MABEL STALLINGS OT Nov 27, 2018 10:12
--- NOTE | 2018-11-27 10:15 | Physical Therapy Evaluation ---
PT Evaluation-General Medical Diagnosis Admission Date Nov 24, 2018 at 09:45 Medical Diagnosis: respiratory failure/bilateral pneumonia Onset Date: Nov 24, 2018 Therapy Diagnosis Therapy Diagnosis: debility/weakness Height/Weight Height (Feet): 5 Height (Inches): 9.00 Weight (Pounds): 225 Weight (Ounces): 5.0 Precautions Precautions/Isolations: Aspiration, Seizure, Fall Prevention, Standard Precautions Weight Bear Status Right Lower Extremity: Right Weight Bearing/Tolerated Left Lower Extremity: Left Weight Bearing/Tolerated Referral Physician: Carole Reason for Referral: Evaluation/Treatment Medical History Pertinent Medical History: DM, GERD, HTN, Smoking Additional Medical History seizure disorder/Schizophrenia with violent behaviors/MR Current History ER secondary to found unresponsive with SAO2 57% Reviewed History: Yes Social History Home: Single Level Current Living Status: Other Family Entry Into Home: Ramp Prior/Core FIM Prior Level of Function Therapy Code Descriptions/Definitions Functional [place] Measure: 0=Not Assessed/NA 4=Minimal Assistance 1=Total Assistance 5=Supervision or Setup 2=Maximal Assistance 6=Modified [place] 3=Moderate Assistance 7=Complete [place] Therapy Quality Codes: 6 Independent with activity with or without an assistive device 5 Patient requires set up or clean up by helper. Patient completes activity by themselves 4 Supervision or touching assist (CGA). [place] provide cues , steadying assist 3 The helper provides less than half the effort to complete the activity 2 The helper provides more than half the effort to complete the activity 1 Dependent. The helper does all the effort to complete an activity 7 Patient refused to complete or attempt activity 9 The patient did not perform the activity before the current illness or injury 88 Not attempted due to Medical conditions or safety concerns Functional Abilities and Goals: Independent: Patient completed the activities by him/herself, with or without an assistive device, with no assistance from a helper. Needed Some Help: Patient needed partial assistance from another person to complete activities. Dependent: A helper completed the activities for the patient. Unknown: Not Applicable: Bed Mobility: 5 Transfers (B,C,W/C) (FIM): 5 Gait: 5 Indoor Mobility (Ambulation): Independent Stairs: Needed Some Help PT Evaluation-Current Subjective Patient extubated yesterday. Still lethargic. Objective Patient Orientation: MR Attachments: Oxygen, Khan Catheter, IV ROM/Strength ROM Lower Extremities bilateral LE WFL Strength Lower Extremities 2/5 grossly bilateral Integumentary/Posture Integumentary refer to nursing notes Bladder Incontinence: Khan Cath Neuromuscular (Tone, Coordination, Reflexes) severely diminished Sensory Vision: Functional Hearing: Functional Sensation Right Lower Extremit: Impaired Sensation Left Lower Extremity: Impaired Transfers Therapy Code Descriptions/Definitions Functional [place] Measure: 0=Not Assessed/NA 4=Minimal Assistance 1=Total Assistance 5=Supervision or Setup 2=Maximal Assistance 6=Modified [place] 3=Moderate Assistance 7=Complete [place] Transfers (B, C, W/C) (FIM): 1 Scootin dependent assist with repositioning in bed Assessment/Needs 48 y.o. male, will benefit from skilled PT to address functional strength and mobility to improve current LOF to safely return to fpc or care facility at maximum LOF. Rehab Potential: Guarded PT Prison Goals Prison Goals PT Book Binder Goals Time Frame: Dec 18, 2018 Transfers (B,C,W/C) (FIM): 4 Gait (FIM): 1 Gait distance (FIM): 1=up to 49 ft Distance: 20' Gait Level of Assist: 4 Gait Assistive Device: FWW PT Plan Problem List Problem List: Activity Tolerance, Functional Strength, Safety, Balance, Gait, Transfer, Bed Mobility Treatment/Plan Treatment Plan: Continue Plan of Care Treatment Plan: Bed Mobility, Education, Functional Activity Shante, Functional Strength, Gait, Safety, Therapeutic Exercise, Transfers Treatment Duration: Dec 18, 2018 Frequency: 6 times per week Estimated Hrs Per Day: .25 hour per day Patient and/or Family Agrees t: Yes Discharge Recommendations Therapy Discharge Recommendati: 24 Hour Supervision Time/GCodes Time In: 830 Time Out: 841 Total Billed Treatment Time: 11 Total Billed Treatment 1 visit SHAINA Dmias PT Nov 27, 2018 10:15
--- NOTE | 2018-11-27 10:55 | NUR ---
PT TO ROOM 407 VIA HOSPITAL BED ACCOMPANIED BY ICU STAFF AND ARIANA BURTON. PT PERSONAL BELONGINGS WITH PT. BEDSIDE REPORT RECEIVED FROM JOSEPHINE LANE. THIS RN AGREES WITH PREVIOUS ASSESSMENT. NO CHANGES OR UPDATES AT THIS TIME. THIS RN WILL ASSUME PT CARE AND WILL CONTINUE TO MONITOR PT STATUS.
--- NOTE | 2018-11-27 11:40 | Progress Note - Hospitalist ---
Subjective HPI/CC On Admission Date Seen by Provider: Nov 27, 2018 Time Seen by Provider: 08:30 altered mental status and hypoxia Subjective/Events-last exam He is awake but disoriented. He denies any pain. He has no complaints. Focused Exam Lactate Level 11/24/18 12:59: Lactic Acid Level 1.93 Objective Exam Vital Signs Vital Signs Date Time Temp Pulse Resp B/P (MAP) Pulse Ox O2 Delivery O2 Flow Rate FiO2 11/27/18 10:29 94 Nasal Cannula 2.00 11/27/18 08:00 104 17 144/98 (113) 11/27/18 07:00 37.0 11/26/18 14:11 24 Capillary Refill : Less Than 3 SecondsLess Than 3 Seconds General Appearance: No Apparent Distress, WD/WN HEENT: PERRL/EOMI, Pharynx Normal Respiratory: Lungs Clear, Normal Breath Sounds, No Respiratory Distress Cardiovascular: Regular Rate, Rhythm, No Edema, No Murmur Gastrointestinal: Normal Bowel Sounds, Non Tender, Soft Extremity: Normal Inspection, Non Tender, No Pedal Edema Neurologic/Psychiatric: Alert, No Motor/Sensory Deficits, Disoriented Skin: Normal Color, Warm/Dry Results/Procedures Lab Laboratory Tests 11/26/18 17:15 11/27/18 03:42 Patient resulted labs reviewed. 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 Hypernatremia [place] toxicity -Na 147, Cr 0.67 -Continue D5W Seizure disorder -Continue Keppra, transitioned to oral today Schizophrenia -Continue Risperdal and Klonopin -[place] discontinued Dysphagia -Swallow evaluation ordered -Pureed/nectar thick diet Critical Care Critically Ill Patient Diagnosis/Problems Diagnosis/Problems (1) Septic shock Status: Resolved Resolution Date/Time: 11/25/18 @ 16:32 (2) Bilateral pneumonia Status: Acute Qualifiers: Pneumonia type: due to unspecified organism Lung location: lower lobe of lung Qualified Codes: J18.1 - Lobar pneumonia, unspecified organism (3) Acute respiratory failure with hypoxia and hypercapnia Status: Resolved Resolution Date/Time: 11/27/18 @ 11:39 (4) Acute kidney injury Status: Resolved Resolution Date/Time: 11/25/18 @ 16:33 (5) Mental retardation Status: Chronic (6) Paranoid schizophrenia Status: Chronic (7) Seizure disorder Status: Acute (8) Hypernatremia Status: Acute (9) [place] toxicity Status: Acute Clinical Quality Measures DVT/VTE Risk/Contraindication: Risk Factor Score Per Nursin RFS Level Per Nursing on Admit: 4+=Very High DOUG WHATLEY MD Nov 27, 2018 11:40
[2018-11-27] MEDS: D5W 1000 ML IV SOLUTION 1,000 ML IV SCH ×2 (12:43→22:50)
--- NOTE | 2018-11-27 14:08 | NUR ---
Report received from Rosmery LANE. Patient laying in bed at this time, call light within reach. Will assume care at this time.
--- NOTE | 2018-11-27 14:08 | NUR ---
REPORT GIVEN TO ARIANA RAMIREZ
[2018-11-27] MEDS ORDERED: LEVETIRACETAM 1,000 MG (KEPPRA) TABLET PO SCH (21:00)
[2018-11-28 00:27] VITALS: BP 142/94
[2018-11-28] MEDS: PIPERACILLIN/TAZO 4.5 GM/NS 100 ML IV SCH ×2 (00:33)
[2018-11-28] MEDS: RT-ALBUTEROL/IPRATROPIUM 3 ML (DUONEB) VIAL INH SCH ×6 (02:46→22:12)
[2018-11-28 03:59] VITALS: BP 144/94
[2018-11-28 04:39] LABS: BASOPHILS % (AUTO) 0 % (0-10); EOSINOPHILS # (AUTO) 0.1 10^3/uL (0.0-0.3); EOSINOPHILS % (AUTO) 1 % (0-10); HEMATOCRIT 39 % (40-54); HEMOGLOBIN 11.9 G/DL (13.3-17.7); LYMPHOCYTES # (AUTO) 3.1 X 10^3 (1.0-4.0); LYMPHOCYTES % (AUTO) 25 % (12-44); MEAN CORPUSCULAR HEMOGLOBIN 26 PG (25-34); MEAN CORPUSCULAR HGB CONC 31 G/DL (32-36); MEAN CORPUSCULAR VOLUME 84 FL (80-99); MEAN PLATELET VOLUME 8.7 FL (7.4-10.4); MONOCYTES % (AUTO) 8 % (0-12); NEUTROPHILS % (AUTO) 66 % (42-75); PLATELET COUNT 281 10^3/uL (130-400); RED CELL DISTRIBUTION WIDTH 18.2 % (10.0-14.5); WHITE BLOOD COUNT 12.2 10^3/uL (4.3-11.0)
[2018-11-28 04:56] LABS: BUN/CREATININE RATIO 17; CALCIUM 8.2 MG/DL (8.5-10.1); CARBON DIOXIDE 28 MMOL/L (21-32); CHLORIDE 103 MMOL/L (98-107); CREATININE SERUM 0.66 MG/DL (0.60-1.30); GFR ESTIMATED > 60; GLUCOSE 113 MG/DL (70-105); MAGNESIUM 1.9 MG/DL (1.6-2.4); PHOSPHORUS 3.8 MG/DL (2.3-4.7); POTASSIUM 3.1 MMOL/L (3.6-5.0); SODIUM 140 MMOL/L (135-145)
--- NOTE | 2018-11-28 07:28 | Pulmonary Progress Note ---
Subjective Time Seen by a Provider: 07:50 Subjective/Events-last exam PT appears to be doing better. Sepsis Event Evaluation Height, Weight, BMI Height: 5'9.00" Weight: 216lbs. 9.0oz. 98.285365tv; 30.00 BMI Method:Estimated Exam Exam Vital Signs Date Time Temp Pulse Resp B/P (MAP) Pulse Ox O2 Delivery O2 Flow Rate FiO2 11/28/18 06:27 88 Nasal Cannula 2.00 11/28/18 03:59 37.4 92 16 144/94 (111) 94 High Flow N/C 2.00 11/28/18 02:46 94 Nasal Cannula 2.00 11/28/18 00:27 37.6 88 16 142/94 (110) 95 High Flow N/C 2.00 11/27/18 21:00 94 Nasal Cannula 2.00 11/27/18 20:40 94 Nasal Cannula 2.00 11/27/18 19:53 37.7 98 18 142/90 (107) 95 High Flow N/C 2.00 11/27/18 18:19 93 Nasal Cannula 2.00 11/27/18 16:00 37.7 91 18 105/62 (76) 97 High Flow N/C 2.00 11/27/18 15:27 94 Nasal Cannula 2.00 11/27/18 12:00 37.5 94 18 138/90 (106) 91 High Flow N/C 2.00 11/27/18 10:29 94 Nasal Cannula 2.00 11/27/18 08:00 High Flow N/C 3.00 11/27/18 08:00 104 17 144/98 (113) 93 High Flow N/C 2.00 I & O 11/28/18 07:00 Intake Total 1825 ml Output Total 3575 ml Balance -1750 ml Height & Weight Height: 5'9.00" Weight: 216lbs. 9.0oz. 98.663014fx; 30.00 BMI Method:Estimated General Appearance: No Apparent Distress, WD/WN HEENT: PERRL/EOMI, Pharynx Normal Neck: Normal Inspection, Supple Respiratory: Lungs Clear, Normal Breath Sounds, No Respiratory Distress Cardiovascular: Regular Rate, Rhythm, No Edema, No Murmur Capillary Refill: Less Than 3 Seconds Gastrointestinal: normal bowel sounds, non tender, soft Extremity: Normal Inspection, Non Tender, No Pedal Edema Neurologic/Psychiatric: Alert, No Motor/Sensory Deficits, Disoriented Skin: Normal Color, Warm/Dry Lymphatic: No Adenopathy Results Lab Laboratory Tests 11/26/18 17:15 11/27/18 03:42 11/28/18 04:30 Assessment/Plan Assessment/Plan acute respiratory failure - improved -Extubated 11/26 acute Seizures - with hx of seizures and frequent falls -Ativan PRN for seizures -Keppra -Montior -Seizure precautions Pneumonia with sepsis probably secondary to aspiration and probable acute seizure -Start Eraxis secondary to yeast in sputum -Zosyn -Enrique cultures Chronic renal failure -Monitor Anemia -Monitor Hx of MR, schizophrenia - Risperadol -PRN Haldol - home clonazepam JESSICA LEÓN DO Nov 28, 2018 07:28
[2018-11-28] MEDS ORDERED: KCL 20 MEQ TAB (K-DUR) PO ONE ×2 (07:30→12:00)
[2018-11-28 07:59] VITALS: BP 149/90
[2018-11-28] MEDS: DOCUSATE SODIUM 100 MG (COLACE) CAP PO SCH ×2 (09:25→22:41)
[2018-11-28] MEDS: LEVETIRACETAM 1,000 MG (KEPPRA) TABLET PO SCH ×2 (09:25→22:39)
[2018-11-28] MEDS: clonazePAM 1 MG (KlonoPIN) TAB PO SCH ×2 (09:25→22:41)
[2018-11-28] MEDS: meTOprolol TARTRATE 25 MG (LOPRESSOR) TABLET PO SCH ×2 (09:25→22:41)
[2018-11-28] MEDS: SENNA W/DOCUSATE (SENOKOT S) TABLET PO SCH ×2 (09:25→22:41)
[2018-11-28] MEDS: ANIDULAFUNGIN INJECTION 100 MG in NS (IVPB) 100 ML IV SCH (09:26)
[2018-11-28] MEDS: risperiDONE 1 MG (RisperDAL) TAB PO SCH ×2 (09:31→22:41)
--- NOTE | 2018-11-28 11:10 | Progress Note - Hospitalist ---
Subjective HPI/CC On Admission Date Seen by Provider: Nov 28, 2018 Time Seen by Provider: 09:30 altered mental status and hypoxia Subjective/Events-last exam He is awake and alert. He does not have any pain. He is not feeling short of breath. He does not have any complaints or concerns. Objective Exam Vital Signs Vital Signs Date Time Temp Pulse Resp B/P (MAP) Pulse Ox O2 Delivery O2 Flow Rate FiO2 11/28/18 10:28 90 Nasal Cannula 4.00 11/28/18 07:59 37.4 103 18 149/90 (109) 11/26/18 14:11 24 Capillary Refill : Less Than 3 SecondsLess Than 3 Seconds General Appearance: No Apparent Distress, WD/WN HEENT: PERRL/EOMI, Pharynx Normal Neck: Normal Inspection, Supple Respiratory: Lungs Clear, Normal Breath Sounds, No Respiratory Distress Cardiovascular: Regular Rate, Rhythm, No Edema, No Murmur Gastrointestinal: Normal Bowel Sounds, Non Tender, Soft Extremity: Normal Inspection, Non Tender, No Pedal Edema Neurologic/Psychiatric: Alert, No Motor/Sensory Deficits, Disoriented Skin: Normal Color, Warm/Dry Results/Procedures Lab Laboratory Tests 11/28/18 04:30 Patient resulted labs reviewed. 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 Hypernatremia, resolved [place] toxicity -Na 140, Cr 0.66 -Continue to monitor Seizure disorder -Continue Keppra Schizophrenia -Continue Risperdal and Klonopin -[place] discontinued Dysphagia -Swallow evaluation ordered -Pureed/nectar thick diet Diagnosis/Problems Diagnosis/Problems (1) Septic shock Status: Resolved Resolution Date/Time: 11/25/18 @ 16:32 (2) Bilateral pneumonia Status: Acute Qualifiers: Pneumonia type: due to unspecified organism Lung location: lower lobe of lung Qualified Codes: J18.1 - Lobar pneumonia, unspecified organism (3) Acute respiratory failure with hypoxia and hypercapnia Status: Acute (4) Acute kidney injury Status: Resolved Resolution Date/Time: 11/25/18 @ 16:33 (5) Mental retardation Status: Chronic (6) Paranoid schizophrenia Status: Chronic (7) Seizure disorder Status: Acute (8) Hypernatremia Status: Resolved Resolution Date/Time: 11/28/18 @ 11:10 (9) [place] toxicity Status: Acute Clinical Quality Measures DVT/VTE Risk/Contraindication: Risk Factor Score Per Nursin RFS Level Per Nursing on Admit: 4+=Very High DOUG WHATLEY MD Nov 28, 2018 11:10
[2018-11-28] MEDS: D5 1/2 NS W/KCL 20 MEQ/L 1,000 ML IV SCH ×2 (11:33→22:39)
--- NOTE | 2018-11-28 15:29 | Diagnostic Imaging Report ---
INDICATION: Dyspnea. TECHNIQUE: Single view chest 3:17 a.m. CORRELATION STUDY: 11/27/2018 FINDINGS: Right IJ central line remains in place with tip over the right atrium. Heart size remains enlarged. Mediastinum is prominent. Mediastinum is most pronounced over the right suprahilar paratracheal region. There is a superimposed infiltrate or atelectasis at the left lung base most pronounced persisting. IMPRESSION: 1. Unchanged cardiac enlargement with persistent component of vascular congestion may be minimally improved. 2. Scattered pulmonary parenchymal densities most pronounced at the lung base which may reflect infiltrate versus edema. Followup imaging recommended. 3. There is abnormal prominent appearance about the mediastinum. Possibly adenopathy and/or mass lesions not excluded. Dictated by: Dictated on workstation # [id number]
[2018-11-28 16:00] VITALS: BP 151/91
[2018-11-28] MEDS: AUGMENTIN 875 MG TAB (AMOXICILLIN/CLAVULANATE) PO SCH (16:54)
[2018-11-29] VITALS: BP 130/90
[2018-11-29] MEDS: RT-ALBUTEROL/IPRATROPIUM 3 ML (DUONEB) VIAL INH SCH ×5 (02:45→22:29)
[2018-11-29] MEDS: AUGMENTIN 875 MG TAB (AMOXICILLIN/CLAVULANATE) PO SCH ×2 (06:07→16:59)
[2018-11-29 06:09] LABS: BASOPHILS % (AUTO) 0 % (0-10); EOSINOPHILS # (AUTO) 0.1 10^3/uL (0.0-0.3); EOSINOPHILS % (AUTO) 0 % (0-10); HEMATOCRIT 38 % (40-54); HEMOGLOBIN 12.2 G/DL (13.3-17.7); LYMPHOCYTES # (AUTO) 2.4 X 10^3 (1.0-4.0); LYMPHOCYTES % (AUTO) 11 % (12-44); MEAN CORPUSCULAR HEMOGLOBIN 27 PG (25-34); MEAN CORPUSCULAR HGB CONC 32 G/DL (32-36); MEAN CORPUSCULAR VOLUME 83 FL (80-99); MEAN PLATELET VOLUME 8.8 FL (7.4-10.4); MONOCYTES # (AUTO) 1.1 X 10^3 (0.0-1.0); MONOCYTES % (AUTO) 5 % (0-12); NEUTROPHILS # (AUTO) 17.3 X 10^3 (1.8-7.8); NEUTROPHILS % (AUTO) 83 % (42-75); PLATELET COUNT 249 10^3/uL (130-400); RED CELL DISTRIBUTION WIDTH 17.4 % (10.0-14.5); WHITE BLOOD COUNT 20.8 10^3/uL (4.3-11.0)
[2018-11-29 06:22] LABS: ANISOCYTOSIS SLIGHT; LYMPHOCYTES % (MANUAL) 12 %; MICROCYTOSIS SLIGHT; MONOCYTES % (MANUAL) 4 %; NEUTROPHILS % (MANUAL) 84 %; POIKILOCYTOSIS SLIGHT; SPHEROCYTES SLIGHT; TOXIC GRANULATION/VACUOLAZATIO 1+
[2018-11-29 06:27] LABS: BUN/CREATININE RATIO 17; CALCIUM 8.3 MG/DL (8.5-10.1); CARBON DIOXIDE 27 MMOL/L (21-32); CHLORIDE 101 MMOL/L (98-107); GFR ESTIMATED > 60; GLUCOSE 125 MG/DL (70-105); PHOSPHORUS 2.6 MG/DL (2.3-4.7); POTASSIUM 3.7 MMOL/L (3.6-5.0); SODIUM 137 MMOL/L (135-145)
--- NOTE | 2018-11-29 06:40 | Pulmonary Progress Note ---
CARMEN GUZMAN,MED STUDENT 11/29/18 0640: Subjective Date Seen by a Provider: Nov 29, 2018 Time Seen by a Provider: 06:35 Subjective/Events-last exam patient is awake and alert. He says that he is feeling okay but has required an increase in his o2 from 3L to 5L. He has had a lot of sputum production and required frequency suction according to the nurse. Review of Systems General: No Chills Pulmonary: Cough Cardiovascular: No: Chest Pain Gastrointestinal: No: Nausea, Vomiting Sepsis Event Evaluation Height, Weight, BMI Height: 5'9.00" Weight: 216lbs. 9.0oz. 98.384703za; 30.00 BMI Method:Estimated Exam Exam Vital Signs Date Time Temp Pulse Resp B/P (MAP) Pulse Ox O2 Delivery O2 Flow Rate FiO2 11/29/18 02:45 92 Nasal Cannula 5.00 11/29/18 00:00 37.5 99 22 130/90 (103) 92 High Flow N/C 5.00 11/28/18 22:12 93 Nasal Cannula 5.00 11/28/18 21:00 Nasal Cannula 2.00 11/28/18 18:25 93 Nasal Cannula 4.00 11/28/18 16:00 38.2 100 18 151/91 (111) 94 High Flow N/C 4.00 11/28/18 13:51 90 Nasal Cannula 4.00 11/28/18 10:28 90 Nasal Cannula 4.00 11/28/18 09:00 Nasal Cannula 2.00 11/28/18 07:59 37.4 103 18 149/90 (109) 93 High Flow N/C 4.00 I & O 11/29/18 07:00 Output Total 1750 ml Balance -1750 ml Height & Weight Height: 5'9.00" Weight: 216lbs. 9.0oz. 98.297091pf; 30.00 BMI Method:Estimated General Appearance: No Apparent Distress, WD/WN, Chronically ill Neck: Normal Inspection, Supple Respiratory: Chest Non Tender, No Accessory Muscle Use, No Respiratory Distress, Rhonci Cardiovascular: No Gallop, No JVD, No Murmur, Tachycardia Capillary Refill: Less Than 3 Seconds Peripheral Pulses: 2+ Dorsalis Pedis (R), 2+ Left Dors-Pedis (L), 2+ Radial Pulses (R), 2+ Radial Pulses (L) Gastrointestinal: normal bowel sounds, non tender, soft Extremity: Normal Inspection, Non Tender, No Calf Tenderness, Pedal Edema Neurologic/Psychiatric: Alert, No Motor/Sensory Deficits, Disoriented Skin: Normal Color, Warm/Dry Lymphatic: No Adenopathy Results Lab Laboratory Tests 11/28/18 04:30 11/29/18 06:00 Assessment/Plan Assessment/Plan acute respiratory failure - improved -Extubated 11/26 Leukocytosis - repeat anderson cultures tachycardia - refractory to metoprolol - consult cardio and pharm acute Seizures - with hx of seizures and frequent falls -Ativan PRN for seizures -Keppra -Montior -Seizure precautions Pneumonia with sepsis probably secondary to aspiration and probable acute seizure -Start Eraxis secondary to yeast in sputum -Zosyn -Anderson cultures Chronic renal failure -Monitor Anemia -Monitor Hx of sanjuana HALL - Risperadol -PRN Haldol - home clonazepam JESSICA LAM DO 11/29/18 0756: Subjective Subjective/Events-last exam pt is doing better. No complications noted. Exam Exam General Appearance: No Apparent Distress, WD/WN, Chronically ill Neck: Normal Inspection, Supple Respiratory: Chest Non Tender, No Accessory Muscle Use, No Respiratory Distress Cardiovascular: No Gallop, No JVD, No Murmur Extremity: Normal Inspection, Non Tender, No Calf Tenderness, Pedal Edema Neurologic/Psychiatric: Alert, No Motor/Sensory Deficits, Disoriented Skin: Normal Color, Warm/Dry Lymphatic: No Adenopathy Assessment/Plan Assessment/Plan Pneumonia with sepsis probably secondary to aspiration and probable acute seizure -Eraxis -Zosyn -Anderson cultures Worsening leukocytosis -Repeat BC with one from central line -Obtain peripheral IV -D/C central line and culture tip Chronic renal failure -Monitor Anemia -Monitor Hx of sanjuana HALL - Risperadol -PRN Haldol - home clonazepam Supervisory-Addendum Brief Verification & Attestation Participated in pt care: history Personally performed: exam Care discussed with: Medical Student Procedures: n/a Verification and Attestation of Medical Student E/M Service A medical student performed and documented this service in my presence. I reviewed and verified all information documented by the medical student and made modifications to such information, when appropriate. I personally performed the physical exam and medical decision making. Jessica Lam, Nov 29, 2018,07:52 CARMEN GZUMAN,MED STUDENT Nov 29, 2018 06:40 JESSICA LAM DO Nov 29, 2018 07:56
--- NOTE | 2018-11-29 07:48 | Diagnostic Imaging Report ---
INDICATION: Dyspnea. EXAMINATION: Chest 11/29/2018. COMPARISON: 11/28/2018. FINDINGS: Single upright portable view of the chest. Low lung volumes present. Bibasilar atelectasis is similar to previous. There is pulmonary vascular congestion. The heart is prominent. No pneumothorax. Deformity of the left distal clavicle stable and chronic in appearance. IMPRESSION: 1. Stable chest. 2. Not mentioned above right jugular line tip is unchanged from previous with the tip in the distal SVC. Dictated by: Dictated on workstation # [id number]
[2018-11-29 08:00] VITALS: BP 150/85
--- NOTE | 2018-11-29 08:18 | ST Dysphagia Evaluation ---
Speech Evaluation-General Medical Diagnosis bilat pneumonia, resp failure Onset Date: Nov 24, 2018 Therapy Diagnosis Therapy Diagnosis: Oropharyngeal Dysphagia Precautions Precautions: Aspiration Precautions/Isolations: Aspiration, Fall Prevention, Standard Precautions Referral Referring Physician: Dr. Lam Reason for Referral: Evaluation/Treatment Medical History Pertinent Medical History: DM, GERD, HTN, Smoking DM, GERD, HTN, smoking Current History Bilat pneumonia, respiratory failure Reviewed History: Yes Social History Home: Current Living Status: Other Family Speech PLF/Current-Dysphagia Prior Level of Function Patient lives in a facility where he receives assistance with his daily needs as needed. He was seen previously for an MBS with significant risk for aspiration. He has a history of dysphagia with thickened liquids necessary for safe oral intake. Subjective The patient was delayed (more than his baseline) for responses. Patient exhibited coughing without oral intake at the BDE. Oral Motor Skills Dentition: Edentalous Current Food Consistancy: Pureed, Honey Liquids Ability to Follow Directions: Poor Oral Expression Ability: Moderate Impairment Patient was seen for an MBS earlier this year. At that time he was very talkative. Voice Voice Phonatory-Based Quality: Weak Voice Pitch: Moderately Low Voice Loudness: Severely Soft/Quiet Face Facial Symmetry: Symmetrical Oral-Facial Assessment Oral-Facial Dentition: Normal Labial Seal Description: Weak Smile: Poor Coordination Unable to complete Lingual Protrusion: Abnormal Lingual ROM: Abnormal Lingual Strength: Abnormal Pharynx Velopharyngeal Move.: Volitional Dry Swallow: No Voluntary Cough: Yes Can Clear Throat Volitionally: No Productive Cough: Yes Patient exhibited a very wet, gurgly cough Productive Throat Clear: No Dysphagia Evaluation Consistencies Presented: Honey Thick Liquid, Pureed Oral Phase: Unable to Form Bolus, Unable to Suck Straw, Reduced Oral Transit Pharyngeal Phase: Decreased A/P Bolus Transit, Clears Throat, Delayed Laryngeal Elevation, Delayed Swallow Patient exhibits moderate to severe delay of swallow onset with puree and honey consistency liquids, both at 1/2 tsp. presentation. Funct. Velo/Pharyngeal Symptom: Clears Throat, Coughing During Swallow, Cough After Swallow, Cough Before Swallow, Wet Voice Dietary Recommendations: Pureed Liquid Recommendations: Honey Consistancy Swallowing Precautions: Alternate Liquids/Solids, Decreased Bolus 1/2 Tsp, No Straw, Small Bites and Sips, Sitting Upright 90 Degrees, Sitting 90 Degrees 30 Post Intake Dysphagia Evaluation Summary The patient is a 48 year old man who was admitted to the hospital with bilat pneumonia and respiratory failure. The patient is known to me from an MBS performed earlier this year. He was to continue on a modified diet with thickened liquids upon return to his living facility. The patient was evaluated at bedside this am with diet level of puree and honey consistency trials. He was presented 1/2 tsp. of each consistency. He has significant delay of swallow onset for both consistencies. The patient coughed before, during and after presentations. He presents with wet, gurgly vocal quality. He is usually very talkative, however today he was very delayed with any vocalizations. The patient will continue on the current diet level with compensatory strategies as listed. Patient may require intake with a PEG placement as determined by his physician. Barriers to Learning Patient has decreased mental function. Speech Short Term Goals Short Term Goals Short Term Goals 1) The patient will tolerate least restrictive diet level without s/s of aspir ation at 90% or greater. 2) The patient/caregivers will utilize compensatory strategies as trained with 90% or greater given minimal cues. Speech Senior Living Goals Livestock Buyer Goals The patient will maintain adequate nutrition/hydration via safe effective swallow. Speech-Plan Patient/Family Goals Patient/Family Goals: The patient will return to his living facility upon hospital discharge. Treatment Plan Speech Therapy Treatment Plan: Continue Plan of Care The patient will receive dysphagia services. Treatment Duration: Dec 02, 2018 Frequency: 2 times per week Estimated Hrs Per Day: .25 hour per day Rehab Potential: Poor Barriers to Learning: Patient has decreased mental function. Pt/Family Agrees to Plan: Yes Safety Risks/Education Teaching Recipient: Patient Teaching Methods: Discussion Response to Teaching: Unable to Comprehend, Reinforcement Needed Education Topics Provided: Safety of oral intake Time Speech Therapy Time In: 08:15 Speech Therapy Time Out: 08:30 Total Billed Time: 15 Billed Treatment Time 1, IDANIA Walters Nov 29, 2018 08:18
[2018-11-29] MEDS: ANIDULAFUNGIN INJECTION 100 MG in NS (IVPB) 100 ML IV SCH (09:14)
[2018-11-29] MEDS: D5 1/2 NS W/KCL 20 MEQ/L 1,000 ML IV SCH ×2 (10:20→16:59)
[2018-11-29] MEDS: DOCUSATE SODIUM 100 MG (COLACE) CAP PO SCH ×2 (10:21→20:28)
[2018-11-29] MEDS: risperiDONE 1 MG (RisperDAL) TAB PO SCH ×2 (10:21→21:00)
[2018-11-29] MEDS: SENNA W/DOCUSATE (SENOKOT S) TABLET PO SCH ×2 (10:21→20:28)
[2018-11-29] MEDS: meTOprolol TARTRATE 25 MG (LOPRESSOR) TABLET PO SCH ×2 (10:21→20:28)
[2018-11-29] MEDS: LEVETIRACETAM 1,000 MG (KEPPRA) TABLET PO SCH ×2 (10:21→20:28)
[2018-11-29] MEDS: clonazePAM 1 MG (KlonoPIN) TAB PO SCH ×2 (10:21→20:28)
--- NOTE | 2018-11-29 10:45 | Physical Therapy Daily Note ---
PT Daily Note-Current Subjective Patient is in bed. Caregivers present. They agree with patient up in chair with use of Francisco Javier. Mental Status Patient Orientation: MR Attachments: Oxygen, Khan Catheter, IV Transfers Therapy Code Descriptions/Definitions Functional [place] Measure: 0=Not Assessed/NA 4=Minimal Assistance 1=Total Assistance 5=Supervision or Setup 2=Maximal Assistance 6=Modified [place] 3=Moderate Assistance 7=Complete [place] Therapy Quality Codes: 6 Independent with activity with or without an assistive device 5 Patient requires set up or clean up by helper. Patient completes activity by themselves 4 Supervision or touching assist (CGA). Reading provide cues , steadying assist 3 The helper provides less than half the effort to complete the activity 2 The helper provides more than half the effort to complete the activity 1 Dependent. The helper does all the effort to complete an activity 7 Patient refused to complete or attempt activity 9 The patient did not perform the activity before the current illness or injury 88 Not attempted due to Medical conditions or safety concerns Transfers (B, C, W/C) (FIM): 1 Scootin Rollin Supine to/from Sit: 1 dependent assist with all mobility and use of Francisco Javier bed to recliner Weight Bearing Right Lower Extremity: Right Weight Bearing/Tolerated Left Lower Extremity: Left Weight Bearing/Tolerated Exercises Supine Ex: Ankle pumps, Heel Slides, Straight leg raise, Hip abd/add Supine Reps: 15 (PROM) Assessment Patient is up in recliner via Francisco Javier Lift. Patient is not actively moving extremities at this time. Helmet placed on patient due to seizure disorder and behavioral issues. PT Snf Goals Funeral Planning Counselor Goals PT Snf Goals Time Frame: Dec 18, 2018 Transfers (B,C,W/C) (FIM): 4 Gait (FIM): 1 Gait distance (FIM): 1=up to 49 ft Distance: 20' Gait Level of Assist: 4 Gait Assistive Device: FWW PT Plan Treatment/Plan Treatment Plan: Continue Plan of Care Treatment Plan: Bed Mobility, Education, Functional Activity Shante, Functional Strength, Gait, Safety, Therapeutic Exercise, Transfers Treatment Duration: Dec 18, 2018 Frequency: 6 times per week Estimated Hrs Per Day: .25 hour per day Patient and/or Family Agrees t: Yes Discharge Recommendations Therapy Discharge Recommendati: Other, See Comments (care home due to current dependency) Time/GCodes Time In: 1024 Time Out: 1035 Total Billed Treatment Time: 11 Total Billed Treatment 1 visit FA 11 min SHAINA AGUIRRE PT Nov 29, 2018 10:45
--- NOTE | 2018-11-29 11:32 | Progress Note - Hospitalist ---
Subjective HPI/CC On Admission Date Seen by Provider: Nov 29, 2018 Time Seen by Provider: 10:30 altered mental status and hypoxia Subjective/Events-last exam Pt is sitting up in chair. Doing well. Caretakers at bedside. No complaints. They have elly lift in home from previous illness and a wheelchair for whenever he is ready for DC. Objective Exam Vital Signs Vital Signs Date Time Temp Pulse Resp B/P (MAP) Pulse Ox O2 Delivery O2 Flow Rate FiO2 11/29/18 10:50 90 High Flow N/C 6.00 11/29/18 08:00 37.4 105 26 150/85 (106) 11/26/18 14:11 24 Capillary Refill : Less Than 3 SecondsLess Than 3 Seconds General Appearance: Chronically ill Respiratory: No Respiratory Distress, Rhonci Cardiovascular: Regular Rate, Rhythm, No Murmur Extremity: No Calf Tenderness, No Pedal Edema Neurologic/Psychiatric: Alert Results/Procedures Lab Laboratory Tests 11/29/18 06:00 Patient resulted labs reviewed. 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 Hypernatremia, resolved [place] toxicity Continue to trend Seizure disorder Continue Keppra Schizophrenia Continue Risperdal and Klonopin [place] discontinued Dysphagia Swallow evaluation ordered Pureed/nectar thick diet Diagnosis/Problems Diagnosis/Problems (1) Paranoid schizophrenia Status: Chronic (2) Mental retardation Status: Chronic (3) Seizure disorder Status: Acute (4) Hypernatremia Status: Resolved Resolution Date/Time: 11/28/18 @ 11:10 (5) Acute respiratory failure with hypoxia and hypercapnia Status: Acute (6) Acute kidney injury Status: Resolved Resolution Date/Time: 11/25/18 @ 16:33 (7) Essential (primary) hypertension Clinical Quality Measures DVT/VTE Risk/Contraindication: Risk Factor Score Per Nursin RFS Level Per Nursing on Admit: 4+=Very High Copy Copies To 1: JORDEN WYLIE MD, KATELYN M MD Nov 29, 2018 11:32
[2018-11-29 12:52] VITALS: BP 137/87
[2018-11-29 13:27] LABS: BILIRUBIN,URINE NEGATIVE (NEGATIVE); CLARITY,URINE CLEAR; COLOR,URINE AMBER; GLUCOSE, URINE (UA) NEGATIVE (NEGATIVE); KETONES,URINE NEGATIVE (NEGATIVE); LEUKOCYTE ESTERASE ,URINE 1+ (NEGATIVE); NITRITE,URINE NEGATIVE (NEGATIVE); PH,URINE 6 (5-9); PROTEIN,URINE 2+ (NEGATIVE); UROBILINOGEN,URINE 1 MG/DL (NORMAL)
--- NOTE | 2018-11-29 14:09 | Occupational Ther Daily Note ---
OT Current Status-Daily Note Subjective Pt. does not report pain. Appearance Pt. up in chair. Pt. is able to look at OT, but then looks at TV. Pt. is able to nod that he would like a drink, but requires cues to look at the drink when OT attempts to give it to him. Mental Status/Objective Therapy Code Descriptions/Definitions Functional [place] Measure: 0=Not Assessed/NA 4=Minimal Assistance 1=Total Assistance 5=Supervision or Setup 2=Maximal Assistance 6=Modified [place] 3=Moderate Assistance 7=Complete [place] ADL-Treatment Eating (FIM): 2 Pt. up in chair. Pt. coughs during treatment and nursing suctions him. Pt. is encouraged to cough on his own. States, "I can't." With encouragement, pt. does this. Pt. is able to nod that he would like something to drink. At one point indicates that he would like "pop." OT encourages pt. to look at his drink while OT spoons it to him. Pt. will look at it, but then will look back at TV. Pt. takes several drinks, but then indicates that he wants no more. OT provides gentle PROM to bilateral UE for shoulder flexion, elbow flexion, and wrist extension. Pt. does not initiate movements. All needs met up in chair. Education OT Patient Education: Correct positioning, Exercise program, Modified ADL techniques, Progress toward Goal/Update tx plan, Purpose of tx/functional activities, Reviewed precautions, Rehab process Teaching Recipient: Patient Teaching Methods: Demonstration, Discussion Response to Teaching: Verbalize Understanding, Return Demonstration OT Short Term Goals Short Term Goals 1=Demonstrate adherence to instructed precautions during ADL tasks. 2=Patient will verbalize/demonstrate understanding of assistive devices/modifications for ADL. 3=Patient will improve strength/tolerance for activity to enable patient to perform ADL's. OT Mop Man Goals Alf Goals Time Frame: Dec 04, 2018 Eating (FIM): 5 Grooming(FIM): 5 Will add additional ADL goals as indicated by functional performance Additional Goals: 1-Demonstrate ADL Tasks, 2-Verbalize Understanding, 3- ImproveStrength/Shante 1=Demonstrate adherence to instructed precautions during ADL tasks. 2=Patient will verbalize/demonstrate understanding of assistive devices/modifications for ADL. 3=Patient will improve strength/tolerance for activity to enable patient to perform ADL's. OT Education/Plan Problem List/Assessment Assessment: Decreased Activ Tolerance, Impaired Cognition, Impaired Coordination, Impaired I ADL's, Impaired Self-Care Skills, Restricted Funct UE ROM Pt would benefit from skilled OT to icrease his independence ini basic self care to allow him to safely return home. Discharge Recommendations Plan/Recommendations: Continue POC Therapy Discharge Recommendati: 24 Hour Supervision Treatment Plan/Plan of Care Treatment,Training & Education: Yes Patient would benefit from OT for education, treatment and training to promote independence in ADL's, mobility, safety and/or upper extremity function for ADL's. Plan of Care: ADL Retraining, Functional Mobility, UE Funct Exercise/Act, UE Neuromus Re-Ed/Coord Treatment Duration: Dec 04, 2018 Frequency: 5 times per week Estimated Hrs Per Day: .25 hour per day Agreement: Yes Rehab Potential: Fair Time/GCodes Start Time: 13:20 Stop Time: 13:33 Total Time Billed (hr/min): 13 Billed Treatment Time 1, ADL SANTIAGO GUTIÉRREZ OT Nov 29, 2018 14:09
[2018-11-29 14:14] LABS: BACTERIA,URINE NEGATIVE /HPF; WBC,URINE 0-2 /HPF
--- NOTE | 2018-11-29 15:50 | NUR ---
DR LEÓN NOTIFIED OF PATIENT CHANGED FROM 5L TO 6L HI FLOW NC. PT RUNNING 90 WITH THE 5L HI FLOW. PT IS VERY DROWSY AT THIS TIME. PLACED IN BED FROM RECLINER. ORDER RECEIVED TO HOLD RISPERDAL FOR SEDATION BUT CAN GIVE IF PATIENT GETS AGITATED.
[2018-11-29 16:00] VITALS: BP 134/91
[2018-11-29 23:47] VITALS: BP 132/73
[2018-11-30] MEDS: RT-ALBUTEROL/IPRATROPIUM 3 ML (DUONEB) VIAL INH SCH ×5 (02:34→18:47)
[2018-11-30] MEDS: D5 1/2 NS W/KCL 20 MEQ/L 1,000 ML IV SCH ×2 (03:30→19:55)
[2018-11-30 06:17] LABS: BASOPHILS % (AUTO) 0 % (0-10); EOSINOPHILS # (AUTO) 0.2 10^3/uL (0.0-0.3); EOSINOPHILS % (AUTO) 2 % (0-10); HEMATOCRIT 36 % (40-54); HEMOGLOBIN 11.3 G/DL (13.3-17.7); LYMPHOCYTES # (AUTO) 2.6 X 10^3 (1.0-4.0); LYMPHOCYTES % (AUTO) 25 % (12-44); MEAN CORPUSCULAR HEMOGLOBIN 27 PG (25-34); MEAN CORPUSCULAR HGB CONC 31 G/DL (32-36); MEAN CORPUSCULAR VOLUME 86 FL (80-99); MEAN PLATELET VOLUME 9.3 FL (7.4-10.4); MONOCYTES # (AUTO) 0.8 X 10^3 (0.0-1.0); MONOCYTES % (AUTO) 8 % (0-12); NEUTROPHILS # (AUTO) 6.9 X 10^3 (1.8-7.8); NEUTROPHILS % (AUTO) 65 % (42-75); PLATELET COUNT 257 10^3/uL (130-400); RED CELL DISTRIBUTION WIDTH 17.6 % (10.0-14.5); WHITE BLOOD COUNT 10.5 10^3/uL (4.3-11.0)
[2018-11-30 06:41] LABS: BUN/CREATININE RATIO 13; CALCIUM 8.3 MG/DL (8.5-10.1); CARBON DIOXIDE 26 MMOL/L (21-32); CHLORIDE 105 MMOL/L (98-107); CREATININE SERUM 0.55 MG/DL (0.60-1.30); GFR ESTIMATED > 60; GLUCOSE 123 MG/DL (70-105); MAGNESIUM 1.9 MG/DL (1.6-2.4); PHOSPHORUS 2.6 MG/DL (2.3-4.7); SODIUM 137 MMOL/L (135-145)
[2018-11-30] MEDS: AUGMENTIN 875 MG TAB (AMOXICILLIN/CLAVULANATE) PO SCH ×2 (06:50→18:02)
--- NOTE | 2018-11-30 07:02 | Pulmonary Progress Note ---
CARMEN GUZMAN,MED STUDENT 11/30/18 0702: Subjective Date Seen by a Provider: Nov 30, 2018 Time Seen by a Provider: 06:59 Subjective/Events-last exam Patient was asleep, snoring, and unable to be aroused. Nurse said that patient was awake for most of the night and had recently went into sleep before I rounded. According to nurse patient did well throughout the night and noted improves in his lung sounds. Sepsis Event Evaluation Height, Weight, BMI Height: 5'9.00" Weight: 223lbs. 5.0oz. 101.006248hz; 30.00 BMI Method:Estimated Exam Exam Vital Signs Date Time Temp Pulse Resp B/P (MAP) Pulse Ox O2 Delivery O2 Flow Rate FiO2 11/30/18 06:31 97 Nasal Cannula 4.00 11/29/18 23:47 36.1 88 22 132/73 (92) 98 High Flow N/C 6.00 11/29/18 22:27 97 High Flow N/C 5.00 11/29/18 21:00 High Flow N/C 6.00 11/29/18 18:37 92 High Flow N/C 6.00 11/29/18 16:00 37.5 98 24 134/91 (105) 95 High Flow N/C 6.00 11/29/18 14:50 96 High Flow N/C 5.00 11/29/18 12:52 36.7 92 22 137/87 (104) 95 High Flow N/C 5.00 11/29/18 10:50 90 High Flow N/C 6.00 11/29/18 09:00 93 High Flow N/C 5.00 11/29/18 08:00 37.4 105 26 150/85 (106) 93 High Flow N/C 5.00 I & O 11/30/18 07:00 Intake Total 1325 ml Output Total 2150 ml Balance -825 ml Height & Weight Height: 5'9.00" Weight: 223lbs. 5.0oz. 101.445308rj; 30.00 BMI Method:Estimated General Appearance: No Apparent Distress, WD/WN, Chronically ill Neck: Normal Inspection, Supple Respiratory: Chest Non Tender, No Accessory Muscle Use, No Respiratory Distress, Expiration, Inspiration, Other (snoring ) Cardiovascular: Regular Rate, Rhythm, No Gallop, No JVD, No Murmur, Normal Per ipheral Pulses Capillary Refill: Less Than 3 Seconds Peripheral Pulses: 2+ Dorsalis Pedis (R), 2+ Left Dors-Pedis (L), 2+ Radial Pulses (R), 2+ Radial Pulses (L) Gastrointestinal: normal bowel sounds, non tender, soft Extremity: No Calf Tenderness, Pedal Edema Skin: Normal Color, Warm/Dry Lymphatic: No Adenopathy Results Lab Laboratory Tests 11/29/18 06:00 11/30/18 05:33 Assessment/Plan Assessment/Plan acute respiratory failure - improved -Extubated 11/26 - currently on 4L and @ 97% Leukocytosis - resolved - repeat anderson cultures - removed central line tachycardia -improved - current controlled with metoprolol acute Seizures - with hx of seizures and frequent falls -Ativan PRN for seizures -Keppra -Montior -Seizure precautions Pneumonia with sepsis probably secondary to aspiration and probable acute seizure -Start Eraxis secondary to yeast in sputum - finished 11/26 -Zosyn -finished abx 11/28 -Anderson cultures Chronic renal failure -Monitor Anemia -Monitor Hx of MR, schizophrenia - Risperadol -PRN Haldol - home clonazepam JESSICA LAM DO 12/01/18 0857: Subjective Subjective/Events-last exam PT is awake and sounds very coarse BS. Exam Exam General Appearance: No Apparent Distress, WD/WN, Chronically ill Respiratory: Chest Non Tender, No Accessory Muscle Use, No Respiratory Distress, Expiration, Inspiration Cardiovascular: Regular Rate, Rhythm, No Gallop, No JVD, No Murmur, Normal Peripheral Pulses Extremity: Pedal Edema Neurologic/Psychiatric: Alert, Depressed Affect Skin: Normal Color, Warm/Dry Lymphatic: No Adenopathy Assessment/Plan Assessment/Plan acute respiratory failure - improved -Extubated 11/26 - currently on 4L and @ 97% -Pt is doing much better however now has rhonchi bilaterally Leukocytosis - resolved - repeat anderson cultures pending - removed central line tachycardia -improved - current controlled with metoprolol acute Seizures - with hx of seizures and frequent falls -Ativan PRN for seizures -Keppra -Montior -Seizure precautions Pneumonia with sepsis probably secondary to aspiration and probable acute seizure -Start Eraxis secondary to yeast in sputum - finished 11/26 -Zosyn -finished abx 11/28 -Anderson cultures Chronic renal failure -Monitor Anemia -Monitor Hx of MR, schizophrenia - Risperadol -PRN Haldol - home clonazepam Supervisory-Addendum Brief Verification & Attestation Participated in pt care: history Personally performed: exam, history Care discussed with: Medical Student Procedures: n/a Verification and Attestation of Medical Student E/M Service A medical student performed and documented this service in my presence. I reviewed and verified all information documented by the medical student and made modifications to such information, when appropriate. I personally performed the physical exam and medical decision making. Jessica Lam, Dec 01, 2018,08:57 CARMEN GUZMAN,MED STUDENT Nov 30, 2018 07:02 JESSICA LAM DO Dec 01, 2018 08:57
[2018-11-30 07:31] VITALS: BP 116/77
--- NOTE | 2018-11-30 09:25 | Physical Therapy Daily Note ---
PT Daily Note-Current Subjective Caregivers agree to PT. Mental Status Patient Orientation: MR, Listless Attachments: Oxygen, IV Transfers Therapy Code Descriptions/Definitions Functional [place] Measure: 0=Not Assessed/NA 4=Minimal Assistance 1=Total Assistance 5=Supervision or Setup 2=Maximal Assistance 6=Modified [place] 3=Moderate Assistance 7=Complete [place] Therapy Quality Codes: 6 Independent with activity with or without an assistive device 5 Patient requires set up or clean up by helper. Patient completes activity by themselves 4 Supervision or touching assist (CGA). [place] provide cues , steadying assist 3 The helper provides less than half the effort to complete the activity 2 The helper provides more than half the effort to complete the activity 1 Dependent. The helper does all the effort to complete an activity 7 Patient refused to complete or attempt activity 9 The patient did not perform the activity before the current illness or injury 88 Not attempted due to Medical conditions or safety concerns Transfers (B, C, W/C) (FIM): 1 Scootin Rollin Supine to/from Sit: 1 Sit to/from Stand: 1 Bed to/from Chair: 1 dependent assist with sit to stand lift commode to bed. Patient, due to severe debility, will require Francisco Javier Lift for safe transfers. Weight Bearing Right Lower Extremity: Right Weight Bearing/Tolerated Left Lower Extremity: Left Weight Bearing/Tolerated Exercises Supine Ex: Ankle pumps, Heel Slides Supine Reps: 15 Assessment Patient tolerates minimal activity and is in bed with 4 rails up and needs met. RN in room. Instructed to use Francisco Javier lift for safe transfers. PT Atmospheric Chemist Goals Mcfp Goals PT Atmospheric Chemist Goals Time Frame: Dec 18, 2018 Transfers (B,C,W/C) (FIM): 4 Gait (FIM): 1 Gait distance (FIM): 1=up to 49 ft Distance: 20' Gait Level of Assist: 4 Gait Assistive Device: FWW PT Plan Treatment/Plan Treatment Plan: Continue Plan of Care Treatment Plan: Bed Mobility, Education, Functional Activity Shante, Functional Strength, Gait, Safety, Therapeutic Exercise, Transfers Treatment Duration: Dec 18, 2018 Frequency: 6 times per week Estimated Hrs Per Day: .25 hour per day Patient and/or Family Agrees t: Yes Time/GCodes Time In: 914 Time Out: 922 Total Billed Treatment Time: 8 Total Billed Treatment 1 visit FA 8 min SHAINA AGUIRRE PT Nov 30, 2018 09:25
[2018-11-30] MEDS: DOCUSATE SODIUM 100 MG (COLACE) CAP PO SCH ×2 (09:33→20:56)
[2018-11-30] MEDS: meTOprolol TARTRATE 25 MG (LOPRESSOR) TABLET PO SCH ×2 (09:33→20:57)
[2018-11-30] MEDS: SENNA W/DOCUSATE (SENOKOT S) TABLET PO SCH ×2 (09:33→20:56)
[2018-11-30] MEDS: clonazePAM 1 MG (KlonoPIN) TAB PO SCH ×2 (09:33→20:57)
[2018-11-30] MEDS: LEVETIRACETAM 1,000 MG (KEPPRA) TABLET PO SCH ×2 (09:33→20:56)
[2018-11-30] MEDS: ANIDULAFUNGIN INJECTION 100 MG in NS (IVPB) 100 ML IV SCH (09:56)
--- NOTE | 2018-11-30 10:05 | D/C HH Face to Face Order ---
D/C Face to Face Orders Reconcile Patient Problems Problems Reviewed?: Yes Instructions for Patient Via Ashley Animating Touch, Patient Instructions/FollowUp: Please continue to take your medications as written. Please follow up with Dr Marroquin in the next week to follow up this hospital stay. Physician to follow Patient: Dr Marroquin Discharge Diet for Home: Dysphagia (Pureed food, thickened liquids) Patient Data-Allergies,Ht & Wt Patient Allergies: Coded Allergies: fluoxetine (Verified Allergy, Unknown, 03/05/17) Height (Feet): 5 Height (Inches): 9.00 Weight (Pounds): 223 Weight (Ounces): 5.0 Home Health Need/Face to Face Date of Face to Face: Nov 30, 2018 Clinical Findings: Generalized weakness and fatigue, Muscle weakness I have seen Pt [id number]: Yes Discharged To: Home Diagnosis/Conditions: Acute respiratory failure, critcla illness myopathy Patient is Homebound due to: CognItive deficits, Luigi fall risk due to instabilty, Muscle weakness Homebound Status Due to the above stated illness, injury or surgical procedure (medical condition or diagnosis) and associated clinical findings, the patient is homebound because of his/her inability to leave home except with aid of a supportive device and/or person AND leaving the home requires a considerable and taxing effort or is medically contraindicated. Pt req the following assistanc: Aid of another person, Wheelchair Home Health Nursing Orders Home Health Services Order: Nursing Services, Equipment Cleaner And Tester-Evaluate & Treat, Physical Therapy-Evaluate & Treat, Speech Language-Evaluate & Treat Therapy Orders Therapy Orders: OT (must have SN or PT order), Physical Therapy, Speech Language Pathology Therapy Specific Orders: Eval assistive deivces, Teach strategies/cognitive deficits, Teach enviro modifications/safety, Eval & treat dysphagia, Gait training, Increase strength/endurance Certify Stmt I certify that this patient is under my care and that I, a nurse practitioner or a physician; a assistant elementary teacher working with me, had a face to face encounter that - meets the physician face to face encounter requirements with this patient as dated. CYNTHIA FAN MD Nov 30, 2018 10:04
--- NOTE | 2018-11-30 10:10 | NUR ---
SPO2 DROPPED TO 82% ON ROOM AIR @ REST. REPLACED O2 @ 3 LPM. SPO2 INCREASED TO 91%. Addendum: 11/30/18 at 1020 by WAI ROJAS RT Amended: Links added.
[2018-11-30] MEDS ORDERED: AMOX1TAB12 PO (10:19)
[2018-11-30] MEDS ORDERED: LEVE100S16 PO (10:19)
--- NOTE | 2018-11-30 10:25 | Discharge Summary ---
Diagnosis/Chief Complaint Date of Admission Nov 24, 2018 at 09:45 Date of Discharge Discharge Date: Nov 30, 2018 Admission Diagnosis Septic shock due to pneumonia Primary Care Jorden Wylie MD Discharge Diagnosis (1) Paranoid schizophrenia Status: Chronic (2) Mental retardation Status: Chronic (3) Seizure disorder Status: Acute (4) Hypernatremia Status: Resolved (5) Acute respiratory failure with hypoxia and hypercapnia Status: Acute (6) Acute kidney injury Status: Resolved (7) Essential (primary) hypertension Discharge Summary Procedures/Consulations Dr Nanette Rubi Discharge Physical Exam Allergies: Coded Allergies: fluoxetine (Verified Allergy, Unknown, 03/05/17) Vitals & I&Os Vital Signs Date Time Temp Pulse Resp B/P (MAP) Pulse Ox O2 Delivery O2 Flow Rate FiO2 12/01/18 10:02 98 Nasal Cannula 3.00 12/01/18 07:44 37.0 100 16 135/82 (99) 11/26/18 14:11 24 General Appearance: No Apparent Distress, Chronically ill Neurologic/Psychiatric: Alert Hospital Course Pt is a 48yoCM who was admitted in acute respiratory failure due to aspiration pneumonia. He was ventilated and treated with Zosyn. He did well and was extubated and treated with PT/OT for his debility. He completed his antibiotics while inpatient. There were concerns about chronic aspiration and SUPERVISOR UNLOADING was consulted and diet adjusted to pureed with thickened liquids. Social Work was consulted to assist with discharge planning. Labs (last 24 hrs) Laboratory Tests 12/01/18 05:20: White Blood Count 11.9H, Red Blood Count 4.38, Hemoglobin 11.5L, Hematocrit 37L, Mean Corpuscular Volume 85, Mean Corpuscular Hemoglobin 26, Mean Corpuscular Hemoglobin Concent 31L, Red Cell Distribution Width 17.1H, Platelet Count 296, Mean Platelet Volume 9.3, Neutrophils (%) (Auto) 70, Lymphocytes (%) (Auto) 19, Monocytes (%) (Auto) 9, Eosinophils (%) (Auto) 1, Basophils (%) (Auto) 0, Neutrophils # (Auto) 8.4H, Lymphocytes # (Auto) 2.3, Monocytes # (Auto) 1.1H, Eosinophils # (Auto) 0.2, Basophils # (Auto) 0.0, Sodium Level 138, Potassium Level 4.0, Chloride Level 101, Carbon Dioxide Level 27, Anion Gap 10, Blood Urea Nitrogen 10, Creatinine 0.56L, Estimat Glomerular Filtration Rate > 60, BUN/Creatinine Ratio 18, Glucose Level 117H, Calcium Level 8.8, Phosphorus Level 2.4, Magnesium Level 1.7, B-Type Natriuretic Peptide 13.0 Microbiology 11/29/18 Catheter Tip Culture - Preliminary, Resulted No growth 11/24/18 MRSA Screen - Final, Complete MRSA not isolated 11/24/18 Urine Culture - Final, Complete NO GROWTH Patient resulted labs reviewed. Pending Labs Discussion & Recommendations Discharge Planning: >30 minutes discharge planning Discharge Home Medications: Active Scripts Active Acetylcysteine 200 Mg/1 Ml Vial 0 Ml INH RTQ6HR Iprat-Albut 0.5-3(2.5) mg/3 ml (Ipratropium/Albuterol Sulfate) 3 Ml Ampul.neb 3 Ml INH Q4H PRN Keppra (Levetiracetam) 100 Mg/1 Ml Solution 1,000 Mg PO BID Reported Tylenol Extra Strength (Acetaminophen) 500 Mg Tablet PO UD PRN PER PACKAGE DIRECTIONS Tylenol (Acetaminophen) 325 Mg Tablet PO UD PRN PER PACKAGE DIRECTIONS Triple Antibiotic Ointment (Neomycin/Polymyxin/Bacitracin) 0.9 Gm Oint TP TID PRN Trazodone HCl 100 Mg Tablet 100 Mg PO HS PRN Tramadol HCl 50 Mg Tablet 25-50 Mg PO Q8H PRN Tinactin (Tolnaftate) 133 Gm Aero.powd TP BID PRN Sudafed PE Pressure+Pain+Mucus (Guaifen/Phenyleph/Acetaminophn) 1 Each Tablet PO TID PRN PER PACKAGE DIRECTIONS Robitussin Cough-Chest Dm Liq (Guaifenesin/Dextromethorphan) 237 Ml Liquid PO TID PRN PER PACKAGE DIRECTIONS Refresh Optive Advanced Drops (Carboxymethyl/Glycerin/Poly80) 10 Ml Drops 1 Drop OU 5XD PRN Preparation H Ointment (Phenyleph/Mineral Oil/Petrolat) 28 Gm Oint.appl RC QID PRN Milk of Magnesia (Magnesium Hydroxide) 400 Mg/5 Ml Oral.susp PO TID PRN PER PACKAGE DIRECTIONS Maalox Advanced Suspension (Mag Hydrox/Aluminum Hyd/Simeth) 355 Ml Oral.susp PO TID PRN PER PACKAGE DIRECTIONS Imodium A-D (Loperamide HCl) 2 Mg Tablet PO TID PRN PER PACKAGE DIRECTIONS Debrox (Carbamide Peroxide) 15 Ml Drops EACH EAR BID PRN PER PACKAGE DIRECTIONS Icy Hot 4%-1% Cream (Lidocaine HCl/Menthol) 76.5 Gm Cream..g. TP UD PRN PER PACKAGE DIRECTIONS Cough Drops (Eucalyptus/Menthol) 1 Each Lozenge 1 Mariam MM 5XD PRN Cortaid (Hydrocortisone) 42 Gm Cream..g. TP TID PRN Benadryl (Diphenhydramine HCl) 25 Mg Capsule 25 Mg PO TID PRN Advil (Ibuprofen) 200 Mg Tablet PO TID PRN PER PACKAGE DIRECTIONS Vitamin E (Vitamin E (Dl,Tocopheryl Acet)) 200 Unit Capsule 200 Unit PO DAILY Trintellix (Vortioxetine Hydrobromide) 20 Mg Tablet 20 Mg PO DAILY Ranitidine HCl 150 Mg Tablet 150 Mg PO BID Meloxicam 15 Mg Tablet 15 Mg PO DAILY [place] Carbonate 300 Mg Capsule 600 Mg PO HS TAKES 2 (300MG) CAPSULES [place] Carbonate 300 Mg Capsule 300 Mg PO DAILY Fanapt (Iloperidone) 4 Mg Tablet 12 Mg PO BID Divalproex Sodium 125 Mg Cap.sprink 2,000 Mg PO DAILY TAKES 16 (125MG) CAPSULES Clonazepam 1 Mg Tablet 1 Mg PO TID Levetiracetam 500 Mg Tablet 500 Mg PO BID Oxybutynin Chloride 5 Mg Tablet 5 Mg PO BID Loratadine 10 Mg Tablet 10 Mg PO DAILY PRN Folic Acid 1 Mg Tablet 0.5 Mg PO DAILY Metoprolol Succinate 25 Mg Tab.er.24h 25 Mg PO DAILY Docusate Sodium 100 Mg Capsule 100 Mg PO BID PRN Instructions to patient/family Please see electronic discharge instructions given to patient. Clinical Quality Measures DVT/VTE Risk/Contraindication: Risk Factor Score Per Nursin RFS Level Per Nursing on Admit: 4+=Very High Copy Copies To 1: JORDEN WYLIE MD, KATELYN M MD Nov 30, 2018 10:25
--- NOTE | 2018-11-30 11:30 | NUR ---
DR FAN NOTIFIED OF PATIENT HAVING 780 IN BLADDER WHEN SCANNED. PT UNABLE TO VOID. ORDER RECEIVED TO INSERT PADRON.
[2018-11-30] MEDS ORDERED: LIDOCAINE UROJET 2% GEL 10 ML PKG ONE (11:46)
--- NOTE | 2018-11-30 12:00 | NUR ---
PADRON INSERTED BY ANOTHER RN D/T THIS NURSE BUSY AT THE TIME. RN WHO PLACED PADRON STATED PT HAD URINATED IN BED BEFORE PADRON WAS PLACED. DR FAN NOTIFIED AND GAVE ORDERS TO LEAVE PADRON IN AT THIS TIME.
--- NOTE | 2018-11-30 12:56 | NUR ---
CM/SS. Patient discharged today back to his home with Michelle So and family under [facility]. HHC: Coordinated with caregivers preferred agency, [facility], for RN PT OT . DME: Arranged hospital bed, wheelchair, and new home O2 continuous through caregiver preferred agency, [facility]. Agency understands to deliver portable O2 to patient hospital room for transport home and that home deliver/setup should be completed before patient leaves hospital. Met with Michelle and [facility] staff this a.m. regarding care plan, DME, and HHC. Patient engaged with health technical writer and asked if he got to go home today, then was excited it was coming true. [facility] will transport patient in one of their lift vans whenever the time is appropriate. Updated legal guardian via email, his preferred method of communication.
[2018-11-30] MEDS: risperiDONE 1 MG (RisperDAL) TAB PO SCH ×2 (14:44→20:56)
--- NOTE | 2018-11-30 14:44 | NUR ---
CM/SS. Per caregiver Michelle, patient already had home O2 from [facility]. She explored getting it changed to [facility] and this was not insurance best practice so they are keeping O2 with [facility], other DME from [facility]. DME has been delivered, Michelle understands to bring portable O2 from home for patient's transport. Discharge planning appears complete.
--- NOTE | 2018-11-30 14:45 | NUR ---
RISPERADOL HELD FOR SEDATION.
[2018-11-30 16:00] VITALS: BP 130/87
[2018-11-30] MEDS ORDERED: SCOPOLAMINE 1.5 MG (TRANSDERM-SCOP) PATCH TD NR (16:15)
[2018-11-30] MEDS: aCETylcysteine 20% (MUCOMYST) 30ML SOLN VIAL INH SCH (21:58)
[2018-12-01] VITALS: BP 122/73
[2018-12-01] MEDS: RT-ALBUTEROL/IPRATROPIUM 3 ML (DUONEB) VIAL INH SCH ×3 (02:19→15:46)
[2018-12-01] MEDS: aCETylcysteine 20% (MUCOMYST) 30ML SOLN VIAL INH SCH ×3 (02:19→15:46)
[2018-12-01] MEDS: D5 1/2 NS W/KCL 20 MEQ/L 1,000 ML IV SCH ×2 (03:00→05:46)
[2018-12-01 06:15] LABS: BASOPHILS % (AUTO) 0 % (0-10); EOSINOPHILS # (AUTO) 0.2 10^3/uL (0.0-0.3); EOSINOPHILS % (AUTO) 1 % (0-10); HEMATOCRIT 37 % (40-54); HEMOGLOBIN 11.5 G/DL (13.3-17.7); LYMPHOCYTES # (AUTO) 2.3 X 10^3 (1.0-4.0); LYMPHOCYTES % (AUTO) 19 % (12-44); MEAN CORPUSCULAR HEMOGLOBIN 26 PG (25-34); MEAN CORPUSCULAR HGB CONC 31 G/DL (32-36); MEAN CORPUSCULAR VOLUME 85 FL (80-99); MEAN PLATELET VOLUME 9.3 FL (7.4-10.4); MONOCYTES # (AUTO) 1.1 X 10^3 (0.0-1.0); MONOCYTES % (AUTO) 9 % (0-12); NEUTROPHILS # (AUTO) 8.4 X 10^3 (1.8-7.8); NEUTROPHILS % (AUTO) 70 % (42-75); PLATELET COUNT 296 10^3/uL (130-400); RED CELL DISTRIBUTION WIDTH 17.1 % (10.0-14.5); WHITE BLOOD COUNT 11.9 10^3/uL (4.3-11.0)
[2018-12-01] MEDS: AUGMENTIN 875 MG TAB (AMOXICILLIN/CLAVULANATE) PO SCH (06:24)
[2018-12-01 06:40] LABS: BUN/CREATININE RATIO 18; CALCIUM 8.8 MG/DL (8.5-10.1); CARBON DIOXIDE 27 MMOL/L (21-32); CHLORIDE 101 MMOL/L (98-107); CREATININE SERUM 0.56 MG/DL (0.60-1.30); GFR ESTIMATED > 60; GLUCOSE 117 MG/DL (70-105); MAGNESIUM 1.7 MG/DL (1.6-2.4); PHOSPHORUS 2.4 MG/DL (2.3-4.7); SODIUM 138 MMOL/L (135-145)
[2018-12-01 07:44] VITALS: BP 135/82
--- NOTE | 2018-12-01 08:59 | Pulmonary Progress Note ---
Subjective Time Seen by a Provider: 08:59 Sepsis Event Evaluation Height, Weight, BMI Height: 5'9.00" Weight: 223lbs. 5.0oz. 101.927079gt; 30.00 BMI Method:Estimated Exam Exam Vital Signs Date Time Temp Pulse Resp B/P (MAP) Pulse Ox O2 Delivery O2 Flow Rate FiO2 12/01/18 07:44 37.0 100 16 135/82 (99) 93 Nasal Cannula 4.00 12/01/18 02:19 97 Nasal Cannula 4.00 12/01/18 00:00 37.3 93 19 122/73 (89) 97 High Flow N/C 4.00 11/30/18 21:59 93 Nasal Cannula 4.00 11/30/18 21:00 High Flow N/C 4.00 11/30/18 18:47 122 93 11/30/18 18:47 93 Nasal Cannula 4.00 11/30/18 16:00 36.8 108 24 130/87 (101) 94 High Flow N/C 4.00 11/30/18 13:44 90 Nasal Cannula 3.00 11/30/18 10:15 90 Nasal Cannula 4.00 11/30/18 10:10 90 4.00 I & O 12/01/18 07:00 Intake Total 520 ml Output Total 1300 ml Balance -780 ml Height & Weight Height: 5'9.00" Weight: 223lbs. 5.0oz. 101.821776sx; 30.00 BMI Method:Estimated General Appearance: No Apparent Distress, WD/WN, Chronically ill Neck: Normal Inspection, Supple Respiratory: Chest Non Tender, No Accessory Muscle Use, No Respiratory Distress, Expiration, Inspiration Cardiovascular: Regular Rate, Rhythm, No Gallop, No JVD, No Murmur, Normal Peripheral Pulses Capillary Refill: Less Than 3 Seconds Peripheral Pulses: 2+ Dorsalis Pedis (R), 2+ Left Dors-Pedis (L), 2+ Radial Pulses (R), 2+ Radial Pulses (L) Gastrointestinal: normal bowel sounds, non tender, soft Extremity: Pedal Edema Neurologic/Psychiatric: Alert, Depressed Affect Skin: Normal Color, Warm/Dry Lymphatic: No Adenopathy Results Lab Laboratory Tests 11/30/18 05:33 12/01/18 05:20 Assessment/Plan Assessment/Plan Atelectasis with copious amounts of sputum -Check BNP -Give 40mg of lasix x 1 -SL IV -Mucomyst added to DUoneb -Extubated 11/26 Leukocytosis - resolved - repeat anderson cultures - removed central line tachycardia -improved - current controlled with metoprolol acute Seizures - with hx of seizures and frequent falls -Ativan PRN for seizures -Shaheed -Ancelmoior -Seizure precautions Pneumonia with sepsis probably secondary to aspiration and probable acute seizure -Start Eraxis secondary to yeast in sputum - finished 11/26 -Zosyn -finished abx 11/28 -Anderson cultures Chronic renal failure -Monitor Anemia -Monitor Hx of MR, schizophrenia - Risperadol -PRN Haldol - home clonazepam JESSICA LEÓN DO Dec 01, 2018 08:59
[2018-12-01] MEDS ORDERED: FUROSEMIDE 40 MG/4 ML INJ (LASIX) IVP ONE (09:00)
--- NOTE | 2018-12-01 09:08 | Diagnostic Imaging Report ---
INDICATION: Dyspnea. TECHNIQUE: Single view chest at 4:26 AM. CORRELATION STUDY: 11/29/2018. FINDINGS: Previously noted right IJ central line has been removed. Heart size is enlarged and the mediastinum prominent. Vasculature is increased. Scattered pulmonary/parenchymal density noted throughout both lung coronado, adversely changed, particularly in the right mid lung as well as bilateral lung bases. There is more focal increased density in the right paramediastinal region. IMPRESSION: 1. Increasing vascular congestion. 2. Increasing multilobe pulmonary density could be reflective of pulmonary edema versus superimposed infiltrate. 3. Asymmetric fullness of the right superior mediastinal region. Finding is nonspecific. It is noted that there has been interval removal of the right IJ central line. Possibility of a mediastinal hematoma would be considered less likely. Dictated by: Dictated on workstation # [id number]
[2018-12-01] MEDS: clonazePAM 1 MG (KlonoPIN) TAB PO SCH (10:19)
[2018-12-01] MEDS: LEVETIRACETAM 1,000 MG (KEPPRA) TABLET PO SCH (10:19)
[2018-12-01] MEDS: DOCUSATE SODIUM 100 MG (COLACE) CAP PO SCH (10:19)
[2018-12-01] MEDS: meTOprolol TARTRATE 25 MG (LOPRESSOR) TABLET PO SCH (10:19)
[2018-12-01] MEDS: SENNA W/DOCUSATE (SENOKOT S) TABLET PO SCH (10:19)
--- NOTE | 2018-12-01 11:32 | Progress Note - Hospitalist ---
Subjective HPI/CC On Admission Date Seen by Provider: Dec 01, 2018 Time Seen by Provider: 11:29 altered mental status and hypoxia Subjective/Events-last exam Pt was unable to discharge yesterday due to home health needs being unable to be arranged. Will DC today. Family and Caretakers at bedside and ready for DC home as well. Objective Exam Vital Signs Vital Signs Date Time Temp Pulse Resp B/P (MAP) Pulse Ox O2 Delivery O2 Flow Rate FiO2 12/01/18 10:02 98 Nasal Cannula 3.00 12/01/18 07:44 37.0 100 16 135/82 (99) 11/26/18 14:11 24 Capillary Refill : Less Than 3 SecondsLess Than 3 Seconds General Appearance: No Apparent Distress, Chronically ill Respiratory: Lungs Clear, No Accessory Muscle Use, No Respiratory Distress Cardiovascular: Regular Rate, Rhythm, No Murmur Neurologic/Psychiatric: Alert, Other (intellectual delay) Results/Procedures Lab Laboratory Tests 12/01/18 05:20 Patient resulted labs reviewed. 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 Diagnosis/Problems Diagnosis/Problems (1) Paranoid schizophrenia Status: Chronic (2) Mental retardation Status: Chronic (3) Seizure disorder Status: Acute (4) Hypernatremia Status: Resolved Resolution Date/Time: 11/28/18 @ 11:10 am (5) Acute respiratory failure with hypoxia and hypercapnia Status: Acute (6) Acute kidney injury Status: Resolved Resolution Date/Time: 11/25/18 @ 4:33 pm (7) Essential (primary) hypertension Clinical Quality Measures DVT/VTE Risk/Contraindication: Risk Factor Score Per Nursin RFS Level Per Nursing on Admit: 4+=Very High CYNTHIA FAN MD Dec 01, 2018 11:31 am
--- NOTE | 2018-12-01 14:22 | NUR ---
CM/SS, finalized discharge for today after meeting this a.m. with patient, [facility], Shared Living provider/Michelle, Dr. Zhu, Unit RN. HHC: Finalized with [facility], agency confirmed Dr. Marroquin will follow for [facility] post discharge. Followup appointment with her Thursday. DME: Additional DME coordinated/finalized: Suction with yaunker, nebulizer with mask, pulse ox with alarm, hospital bed, wheelchair. Patient already has home O2 and sit to stand. EMS: Transport home via EMS because patient is too weak and deconditioned to enter/exit and ride by private vehicle safely. [facility] attempted to use their wheelchair vans but per their contracts with provider under Shared Living Program they can not use their vehicle. Multiple communication exchanges with [facility] team, physician(s), E staff, Unit RN. All arrangements appear complete. Once Michelle notifies us equipment has been delivered, patient will be transported via EMS.
[2018-12-01] MEDS ORDERED: IPRA3AMP31 INH (14:36)
[2018-12-01] MEDS ORDERED: ACET200V4 INH (14:36)
[2018-12-01 16:30] VITALS: BP 135/82
[2018-12-03] MEDS ORDERED: SCOPOLAMINE PATCH REMOVAL TP NR (16:15)
== END 2018-12-01 16:32 | disposition home health service (06) | DRG 208 ==
LOC: EDUNIT# 08:10 → ER 08:11 → ICU 09:45 → 4TH 11-27 10:52
PROVIDERS: ADMIT Internal Medicine; ATTEND Internal Medicine
PROC: 5A1945Z Respiratory Ventilation, 24-96 Consecutive Hours (ICD-10-PCS; principal; 2018-11-24)
PROC: 0BH18EZ Insertion of Endotracheal Airway into Trachea, Via Natural or Artificial Opening Endoscopic (ICD-10-PCS; 2018-11-24)
DX: J96.01 Acute respiratory failure with hypoxia (principal); J96.02 Acute respiratory failure with hypercapnia; J69.0 Pneumonitis due to inhalation of food and vomit; A41.9 Sepsis, unspecified organism; R65.21 Severe sepsis with septic shock; N17.9 Acute kidney failure, unspecified; E87.0 Hyperosmolality and hypernatremia; R89.2 Abnormal level of other drugs, medicaments and biological substances in specimens from other organs, systems and tissues; R13.10 Dysphagia, unspecified; N25.1 Nephrogenic diabetes insipidus; J98.11 Atelectasis; I12.9 Hypertensive chronic kidney disease with stage 1 through stage 4 chronic kidney disease, or unspecified chronic kidney disease; N18.9 Chronic kidney disease, unspecified; G40.909 Epilepsy, unspecified, not intractable, without status epilepticus; K21.9 Gastro-esophageal reflux disease without esophagitis; E78.00 Pure hypercholesterolemia, unspecified; F79 Unspecified intellectual disabilities; F63.81 Intermittent explosive disorder; F20.0 Paranoid schizophrenia; F32.9 Major depressive disorder, single episode, unspecified; L40.9 Psoriasis, unspecified
CPT/HCPCS: 31500; 36415; 36600; 51702; 70450; 71045; 80048; 80053; 80178; 81000; 82805; 82962; 83605; 83735; 83880; 84100; 84145; 84295; 84478; 85007; 85025; 85027; 85610; 85730; 87040; 87070; 87081; 87088; 87205; 87804; 94002; 94003; 94640; 94760; 94761; 94799; 96361; 96365; 96375; 99291; 99292

== ENCOUNTER → 2018-12-23 | Outpatient (CLI) | payer MEDICARE, MEDICAID ==
[~2018-12-23] MED LIST changes: +ACET-2267 PO; +ACET200V4 INH; +ACET325T38 PO; +AMOX1TAB12 PO; +CARB10DR OU; +CARB15DR87 EACH EAR; +CLON1TAB13 PO; +DIPH25CA79 PO; +DIVA125C10 PO; +EUCA1LOZ28 MM; +GUAI237L82 PO; +HYDR42CR3 TP; +IBUP-30 PO; +ILOP4TAB2 PO; +IPRA3AMP31 INH; +LEVE100S16 PO; +LIDO76.53 TP; +LITH300C PO; +LOPE-134 PO; +MAG355OR16 PO; +MAGN400O7 PO; +MELO15TA39 PO; +NPB.9O TP; +PHEN28OI6 RC; +RANI150T11 PO; +TOLN133A TP; +TRAM50TA2 PO; +TRAZ-190 PO; +VITA200C60 PO; +VORT20TA PO; +[UNRECOGNIZED DRUG - CODE] PO
--- NOTE | 2018-12-23 13:16 | Diagnostic Imaging Report ---
INDICATION: Aspiration pneumonia. TIME OF EXAM: 1:01 p.m. Correlation is made with prior chest from 12/01/2018. FINDINGS: Lungs appear to be fairly clear today with exception of minimal density in the left base. This could represent minimal infiltrate or atelectasis. Right lung is clear. The pulmonary vascularity is unremarkable. No effusion or pneumothorax is seen. IMPRESSION: Minimal left basilar infiltrate or atelectasis. The study is otherwise unremarkable. Dictated by: Dictated on workstation # [id number]
== END ==
LOC: RAD 12:46
PROVIDERS: ATTEND Family Medicine
DX: J69.0 Pneumonitis due to inhalation of food and vomit (principal)
CPT/HCPCS: 71046

== ENCOUNTER → 2019-01-17 | Outpatient (CLI) | payer MEDICARE, MEDICAID ==
--- NOTE | 2019-01-17 12:33 | Diagnostic Imaging Report ---
INDICATION: Aspiration pneumonia. TECHNIQUE: The study was performed in conjunction with Speech Pathology. Video fluoroscopy was performed during the swallowing of barium in multiple consistencies. A total of 1 minute and 14 seconds of fluoroscopic time was utilized. FINDINGS: The patient ingested nectar, applesauce, banana, and ground meat consistencies. The oral phase is unremarkable. There is normal epiglottic tilt and laryngeal elevation. No laryngeal penetration or aspiration was observed. No significant vallecular or pyriform sinus residue was detected. IMPRESSION: Unremarkable modified barium swallow study. Dictated by: Dictated on workstation # [id number]
== END ==
LOC: RAD 10:16
PROVIDERS: ATTEND Family Medicine
DX: J69.0 Pneumonitis due to inhalation of food and vomit (principal); R13.10 Dysphagia, unspecified
CPT/HCPCS: 74230

== ENCOUNTER 2019-11-24 07:45 | Inpatient (IN) | payer MEDICARE, MEDICAID ==
[~2019-11-24] VITALS: Ht 180 cm; Wt 96.6 kg
[2019-11-24] VITALS (21 sets, daily range): BP systolic 59–145; BP diastolic 72–100
[~2019-11-24 07:45] MED LIST changes: -METO-387 PO; +OXYB5TAB13 PO; -PANT40TA3 PO; +PANT40TA52 PO; -PHEN28OI6 RC; +PHEN28OI9 RC; +QUET100T33 PO; -QUET100T69 PO; +QUET200T29 PO; -QUET200T57 PO; -TRAM50TA2 PO; -TRAZ-190 PO; +TRAZ-227 PO; +TRM50T PO
[2019-11-24] MEDS ORDERED: NS IV 1000 ML 1,000 ML ONE (07:49)
--- NOTE | 2019-11-24 07:55 | NUR ---
50 mg rocuronium given to pt via l wrist iv per dr baker orders.
[2019-11-24] MEDS ORDERED: NOREPINEPHRINE 4 MG/250 ML 250 ML IV ONE (08:12)
[2019-11-24] MEDS ORDERED: SODIUM BICARB 8.4% 50 MEQ/50 ML VIAL IV ONE (08:15)
[2019-11-24] MEDS ORDERED: LEVETIRACETAM INJECTION 1,000 MG in NS (IVPB) 100 ML IV SCH (08:15)
[2019-11-24 08:16] LABS: ABG BASE EXCESS -0.4 MMOL/L (-2.5-2.5); ABG OXYGEN SATURATION 97 % (94-100); ABG PO2 115 MMHG (79-93); ABG TCO2 32.8 MMOL/L (21.0-31.0); ALLENS TEST POSITIVE; INSPIRED O2 15 L; PATIENT TEMP 98.7; VENTILATOR NO
[2019-11-24 08:18] LABS: ABG PCO2 111 MMHG (35-45); ABG PH 7.05 (7.37-7.43)
[2019-11-24 08:21] LABS: BASOPHILS # (AUTO) 0.1 10^3/uL (0.0-0.1); BASOPHILS % (AUTO) 1 % (0-10); EOSINOPHILS % (AUTO) 0 % (0-10); HEMATOCRIT 44 % (40-54); HEMOGLOBIN 13.2 G/DL (13.3-17.7); LYMPHOCYTES # (AUTO) 1.5 X 10^3 (1.0-4.0); LYMPHOCYTES % (AUTO) 22 % (12-44); MEAN CORPUSCULAR HEMOGLOBIN 26 PG (25-34); MEAN CORPUSCULAR HGB CONC 30 G/DL (32-36); MEAN CORPUSCULAR VOLUME 86 FL (80-99); MEAN PLATELET VOLUME 9.6 FL (7.4-10.4); MONOCYTES % (AUTO) 14 % (0-12); NEUTROPHILS # (AUTO) 4.2 X 10^3 (1.8-7.8); NEUTROPHILS % (AUTO) 62 % (42-75); PLATELET COUNT 193 10^3/uL (130-400); WHITE BLOOD COUNT 6.8 10^3/uL (4.3-11.0)
[2019-11-24] MEDS ORDERED: CEFEPIME INJECTION 2,000 MG in WATER (STERILE) FOR INJECTION 20 ML IV ONE (08:30)
[2019-11-24] MEDS ORDERED: methylPREDNISolone 125 MG (Solu-MEDROL) VIAL IVP ONE (08:30)
[2019-11-24 08:44] LABS: FIBRIN DEGRADATION PRODUCTS 3.19 UG/ML (0.00-0.49); INR 1.2 (0.8-1.4); PROTHROMBIN TIME PATIENT 15.1 SEC (12.2-14.7)
--- NOTE | 2019-11-24 08:44 | Diagnostic Imaging Report ---
INDICATION: Unresponsive. Time of exam: 8:11 AM Correlation is made with prior chest from 12/23/2018. ET tube has been placed and has tip in good position above the anibal. NG tube passes into the stomach. There are bilateral perihilar and bibasilar infiltrates. No effusion or pneumothorax is detected. IMPRESSION: 1. Satisfactory endotracheal tube and nasogastric tube placement. 2. Development of bilateral pulmonary infiltrates. Dictated by: Dictated on workstation # [id number]
[2019-11-24 08:47] LABS: ACETAMINOPHEN < 10 UG/ML (10-30); ALANINE AMINOTRANSFERASE 31 U/L (0-55); ALBUMIN 3.6 GM/DL (3.2-4.5); ALKALINE PHOSPHATASE 79 U/L (40-136); AMYLASE 64 U/L (25-125); BAND NEUTROPHILS 21 %; BILIRUBIN,TOTAL 0.3 MG/DL (0.1-1.0); BUN/CREATININE RATIO 8; CALCIUM 8.4 MG/DL (8.5-10.1); CARBON DIOXIDE 26 MMOL/L (21-32); CHLORIDE 99 MMOL/L (98-107); CREATINE KINASE 912 U/L (30-200); CREATININE SERUM 1.71 MG/DL (0.60-1.30); ERYTHROCYTE SEDIMENTATION RATE 16 MM/HR (0-30); GFR ESTIMATED 43; GLUCOSE 201 MG/DL (70-105); LIPASE 24 U/L (8-78); LYMPHOCYTES % (MANUAL) 26 %; METAMYELOCYTES % 2 %; MONOCYTES % (MANUAL) 19 %; MYELOCYTES % 3 %; NEUTROPHILS % (MANUAL) 29 %; NUCLEATED RED BLOOD CELLS 5; POTASSIUM 4.7 MMOL/L (3.6-5.0); SODIUM 142 MMOL/L (135-145)
[2019-11-24 08:48] LABS: ANISOCYTOSIS SLIGHT; PLATELET CLUMPS OCCASIONAL; POLYCHROMASIA SLIGHT
[2019-11-24] MEDS ORDERED: LACTATED RINGERS 1,000 ML IV ONE (08:56)
--- NOTE | 2019-11-24 08:56 | ED Respiratory ---
General Chief Complaint: Unresponsive Stated Complaint: UNRESPONSIVE Source: EMS, old records (ALL PMH IS FROM OLD RECORDS) Exam Limitations: clinical condition (PT UNRESPONSIVE) History of Present Illness Date Seen by Provider: Nov 24, 2019 Time Seen by Provider: 07:45 Initial Comments PT ARRIVES VIA EMS FROM [facility]--NO CALL FROM [facility] REPORTS THAT PT BEGAN HAVING COUGH AND SHORTNESS OF BREATH LAST NIGHT THIS MORNING, PT HAD INCREASED SHORTNESS OF BREATH EMS REPORT THAT O2 SAT WAS 81% AND [facility] STAFF HAD PLACED PT ON O2 AT 2L/NC, THEN EMS BEGAN BAGGING THE PT VIA BVM, AND O2 SATS IN 70'S ON ARRIVAL WITH BAGGING, AND PT HAD NO GAG REFLEX FOR EMS AT THE SCENE AND WAS COMPLETELY UNRESPONSIVE ON THEIR ARRIVAL AT SCENE EMS REPORT THAT PT HAD A 30 SECOND SEIZURE EN ROUTE--PT HAS HISTORY OF SEIZURES PT WAS ADMITTED LAST FOR BILATERAL PNEUMONIA, SUSPECTED ASPIRATION PNEUMONIA NO EVIDENCE OF VOMITUS ON PT ON ARRIVAL NO OTHER INFORMATION IS OBTAINABLE PCP: DR. WYLIE Allergies and Home Medications Allergies Coded Allergies: fluoxetine (Verified Allergy, Unknown, 03/05/17) Home Medications Acetaminophen 325 Mg Tablet, PO UD PRN for PAIN-MILD OR TEMPATURE, (Reported) PER PACKAGE DIRECTIONS Acetaminophen 500 Mg Tablet, PO UD PRN for PAIN-MILD OR TEMPATURE, (Reported) PER PACKAGE DIRECTIONS Acetylcysteine 200 Mg/1 Ml Vial, 0 ML INH RTQ6HR Prescribed by: CYNTHIA FAN on 12/01/18 1436 Carbamide Peroxide 15 Ml Drops, EACH EAR BID PRN for EXCESS CERUM, (Reported) PER PACKAGE DIRECTIONS Carboxymethyl/Glycerin/Poly80 10 Ml Drops, 1 DROP OU 5XD PRN for DRY EYES, (Reported) Clonazepam 1 Mg Tablet, 1 MG PO TID, (Reported) Diphenhydramine HCl 25 Mg Capsule, 25 MG PO TID PRN for ALLERGIES/ITCHING, (Reported) Divalproex Sodium 125 Mg Cap.sprink, 2,000 MG PO DAILY, (Reported) TAKES 16 (125MG) CAPSULES Docusate Sodium 100 Mg Capsule, 100 MG PO BID PRN for CONSTIPATION-1ST LINE, (Reported) Eucalyptus/Menthol 1 Each Lozenge, 1 KELSI MM 5XD PRN for COUGH, (Reported) Folic Acid 1 Mg Tablet, 0.5 MG PO DAILY, (Reported) Guaifen/Phenyleph/Acetaminophn 1 Each Tablet, PO TID PRN for CONGESTION, (Reported) PER PACKAGE DIRECTIONS Guaifenesin/Dextromethorphan 237 Ml Liquid, PO TID PRN for COUGH, (Reported) PER PACKAGE DIRECTIONS Hydrocortisone 42 Gm Cream..g., TP TID PRN for ITCHING, (Reported) Ibuprofen 200 Mg Tablet, PO TID PRN for PAIN-MILD OR TEMPATURE, (Reported) PER PACKAGE DIRECTIONS Iloperidone 4 Mg Tablet, 12 MG PO BID, (Reported) Ipratropium/Albuterol Sulfate 3 Ml Ampul.neb, 3 ML INH Q4H PRN for SOA/WHEEZING Prescribed by: CYNTHIA FAN on 12/01/18 1436 Levetiracetam 100 Mg/1 Ml Solution, 1,000 MG PO BID Prescribed by: CYNTHIA FAN on 11/30/18 1019 Lidocaine HCl/Menthol 76.5 Gm Cream..g., TP UD PRN for SORE MUSCLES, (Reported) PER PACKAGE DIRECTIONS [place] Carbonate 300 Mg Capsule, 300 MG PO DAILY, (Reported) [place] Carbonate 300 Mg Capsule, 600 MG PO HS, (Reported) TAKES 2 (300MG) CAPSULES Loperamide HCl 2 Mg Tablet, PO TID PRN for DIARRHEA, (Reported) PER PACKAGE DIRECTIONS Loratadine 10 Mg Tablet, 10 MG PO DAILY PRN for ALLERGIES, (Reported) Mag Hydrox/Aluminum Hyd/Simeth 355 Ml Oral.susp, PO TID PRN for INDIGESTION, (Reported) PER PACKAGE DIRECTIONS Magnesium Hydroxide 400 Mg/5 Ml Oral.susp, PO TID PRN for CONSTIPATION-7TH LINE, (Reported) PER PACKAGE DIRECTIONS Metoprolol Succinate 25 Mg Tab.er.24h, 25 MG PO DAILY, (Reported) Neomycin/Polymyxin/Bacitracin 0.9 Gm Oint, TP TID PRN for MINOR CUTS, SCRAPES, ABRASIONS, (Reported) Oxybutynin Chloride 5 Mg Tablet, 5 MG PO BID, (Reported) Phenyleph/Mineral Oil/Petrolat 28 Gm Oint.appl, RC QID PRN for HEMORRHOIDS, (Rep orted) Tolnaftate 133 Gm Aero.powd, TP BID PRN for ATHLETE'S FOOT, (Reported) Tramadol HCl 50 Mg Tablet, 25-50 MG PO Q8H PRN for PAIN-MODERATE, (Reported) Trazodone HCl 100 Mg Tablet, 100 MG PO HS PRN for SLEEP, (Reported) Vitamin E (Dl,Tocopheryl Acet) 200 Unit Capsule, 200 UNIT PO DAILY, (Reported) Vortioxetine Hydrobromide 20 Mg Tablet, 20 MG PO DAILY, (Reported) Patient Home Medication List Home Medication List Reviewed: Yes Review of Systems Review of Systems Constitutional: other (UNABLE TO OBTAIN FROM PT) Respiratory: see HPI, cough, short of breath Past Rwhztpk-Qnovlq-Pkkgax Hx Past Med/Social Hx: Reviewed and Corrections made Patient Social History Smoking Status: Current Everyday Smoker Type Used: Cigarettes 2nd Hand Smoke Exposure: No Recent Hopitalizations: No Immunizations Up To Date Tetanus Booster (TDap): More than 5yrs Date of Influenza Vaccine: Dec 06, 2016 Seasonal Allergies Seasonal Allergies: No Past Medical History Surgeries: No (UNKNOWN) Respiratory: Yes (ASPIRATION PNEUMONIA/INTUBATED 11/2018) Pneumonia Cardiac: Yes High Cholesterol, Hypertension Neurological: Yes Developmental Disorder, Seizure Disorder Genitourinary: No (UNKNOWN) Gastrointestinal: Yes Gastroesophageal Reflux, Chronic Constipation Musculoskeletal: No (UNKNOWN) Endocrine: No (UNKNOWN - PT IS MR) HEENT: No (UNKNOWN) Cancer: No (UNKNOWN) Psychosocial: Yes (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 No Pertinent Family Hx Physical Exam Vital Signs - First Documented 11/24/19 07:45 Temp 36.7 Pulse 129 Resp 20 B/P (MAP) 75/59 (64) Pulse Ox 78 O2 Delivery Ambu Bag Capillary Refill : Height: 5'9.00" Weight: 223lbs. 5.0oz. [id number]; 30.00 BMI Method:Estimated General Appearance: other (PT OBTUNDED WITH GCS OF 3, WITH MINIMAL RESPIRATORY EFFORT--PT IS BEING BAGGED ON ARRIVAL.) HEENT: other (PUPILS 3-4 MM AND EQUAL, MINIMALLY REACTIVE. PT IS EDENTULOUS. NO EVIDENCE OF VOMITUS) Respiratory: rhonchi (DIFFUSE RHONCHI BILATERAL WITH BAGGING. ), other (SEVERE RESPIRATORY DISTRESS WITH MINIMAL RESPIRATORY EFFORT AND HYPOXIC) Cardiovascular: no JVD, no murmur, tachycardia (120'S) Gastrointestinal: soft Extremities: no pedal edema, slow capillary refill Neurologic/Psychiatric: other (PT IS OBTUNDED WITH GCS OF 3 ON ARRIVAL) Skin: warm/dry, pallor Focused Exam Sepsis Stage: Severe Sepsis Possible Source: Pulmonary Lactate Level 11/24/19 08:02: Lactic Acid Level 5.83*H Time of Focused Exam: 09:00 Respiratory: Other (PT INTUBATED, WITH BILATERAL RHONCHI) Cardiovascular: No JVD, Tachycardia Capillary Refill: Less Than 3 Seconds Skin: normal color, warm/dry Lactic Acid Level Laboratory Tests Test 11/24/19 08:02 Lactic Acid Level 5.83 MMOL/L (0.50-2.00) *H Within 3hrs of presentation: Admin fluids, Admin ABX, Blood cultures prior to ABX's, Focus exam, Lactate level Procedures/Interventions Date of ETT Placement: Nov 24, 2018 Time of ETT Placement: 820 Intubation Method: orotracheal Tube Size: 8.0 Medications: Rocuronium Positive End Tide CO2: Yes Breath Sounds after Intubation: bilateral-equal Intubation Complications: no complications Post Intubation Xray: Yes SEE NURSING NOTES FOR DETAILS Progress/Results/Core Measures Suspected Sepsis SIRS Temperature: Pulse: Respiratory Rate: Laboratory Tests 11/24/19 08:02: White Blood Count 6.8 Blood Pressure / Mean: 11/24/19 08:02: Lactic Acid Level 5.83*H Laboratory Tests 11/24/19 08:02: Creatinine 1.71H, INR Comment 1.2, Platelet Count 193, Total Bilirubin 0.3 Results/Orders Lab Results Laboratory Tests Test 11/24/19 08:01 11/24/19 08:02 11/24/19 08:05 11/24/19 08:40 Range/Units Blood Gas Puncture Site RIGHT BRACHIAL Blood Gas Patient Temperature 98.7 Arterial Blood pH 7.05 *L 7.37-7.43 Arterial Blood Partial Pressure CO2 111 *H 35-45 MMHG Arterial Blood Partial Pressure O2 115 H 79-93 MMHG Arterial Blood HCO3 29 H 23-27 MMOL/L Arterial Blood Total CO2 32.8 H 21.0-31.0 MMOL/L Arterial Blood Oxygen Saturation 97 94-100 % Arterial Blood Base Excess -0.4 -2.5-2.5 MMOL/L Chi Test POSITIVE Blood Gas Ventilator Setting NO Blood Gas Inspired Oxygen 15 L White Blood Count 6.8 4.3-11.0 10^3/uL Red Blood Count 5.10 4.35-5.85 10^6/uL Hemoglobin 13.2 L 13.3-17.7 G/DL Hematocrit 44 40-54 % Mean Corpuscular Volume 86 80-99 FL Mean Corpuscular Hemoglobin 26 25-34 PG Mean Corpuscular Hemoglobin Concent 30 L 32-36 G/DL Red Cell Distribution Width 16.0 H 10.0-14.5 % Platelet Count 193 130-400 10^3/uL Mean Platelet Volume 9.6 7.4-10.4 FL Neutrophils (%) (Auto) 62 42-75 % Lymphocytes (%) (Auto) 22 12-44 % Monocytes (%) (Auto) 14 H 0-12 % Eosinophils (%) (Auto) 0 0-10 % Basophils (%) (Auto) 1 0-10 % Neutrophils # (Auto) 4.2 1.8-7.8 X 10^3 Lymphocytes # (Auto) 1.5 1.0-4.0 X 10^3 Monocytes # (Auto) 1.0 0.0-1.0 X 10^3 Eosinophils # (Auto) 0.0 0.0-0.3 10^3/uL Basophils # (Auto) 0.1 0.0-0.1 10^3/uL Neutrophils % (Manual) 29 % Lymphocytes % (Manual) 26 % Monocytes % (Manual) 19 % Metamyelocytes % 2 % Myelocytes % 3 % Band Neutrophils 21 % Nucleated Red Blood Cells 5 Clumped Platelets OCCASIONAL Polychromasia SLIGHT Anisocytosis SLIGHT Erythrocyte Sedimentation Rate 16 0-30 MM/HR Prothrombin Time 15.1 H 12.2-14.7 SEC INR Comment 1.2 0.8-1.4 Activated Partial Thromboplast Time 38 H 24-35 SEC D-Dimer 3.19 H 0.00-0.49 UG/ML Sodium Level 142 135-145 MMOL/L Potassium Level 4.7 3.6-5.0 MMOL/L Chloride Level 99 98-107 MMOL/L Carbon Dioxide Level 26 21-32 MMOL/L Anion Gap 17 H 5-14 MMOL/L Blood Urea Nitrogen 14 7-18 MG/DL Creatinine 1.71 H 0.60-1.30 MG/DL Estimat Glomerular Filtration Rate 43 BUN/Creatinine Ratio 8 Glucose Level 201 H 70-105 MG/DL Lactic Acid Level 5.83 *H 0.50-2.00 MMOL/L Calcium Level 8.4 L 8.5-10.1 MG/DL Corrected Calcium 8.7 8.5-10.1 MG/DL Magnesium Level 3.0 H 1.6-2.4 MG/DL Total Bilirubin 0.3 0.1-1.0 MG/DL Aspartate Amino Transf (AST/SGOT) 70 H 5-34 U/L Alanine Aminotransferase (ALT/SGPT) 31 0-55 U/L Alkaline Phosphatase 79 40-136 U/L Lactate Dehydrogenase 632 H 125-220 U/L Total Creatine Kinase 912 H 30-200 U/L Creatine Kinase MB 2.5 <6.6 NG/ML Myoglobin 197.9 H 10.0-92.0 NG/ML Troponin I 0.059 H <0.028 NG/ML C-Reactive Protein High Sensitivity 9.22 H 0.00-0.50 MG/DL B-Type Natriuretic Peptide 79.9 <100.0 PG/ML Total Protein 7.0 6.4-8.2 GM/DL Albumin 3.6 3.2-4.5 GM/DL Triglycerides Level 197 H <150 MG/DL Amylase Level 64 25-125 U/L Lipase 24 8-78 U/L Procalcitonin 2.54 H <0.10 NG/ML Acetaminophen Level < 10 L 10-30 UG/ML Serum Alcohol < 10 <10 MG/DL Valproic Acid (Depakene) Level 74.7 50.0-100.0 UG/ML Coronavirus 2019 (TA) Positive H Negative Test 11/24/19 08:59 11/24/19 09:22 Range/Units Urine Color YELLOW Urine Clarity SL CLOUDY Urine pH 5.0 5-9 Urine Specific [place] >=1.030 1.016-1.022 Urine Protein 2+ H NEGATIVE Urine Glucose (UA) NEGATIVE NEGATIVE Urine Ketones NEGATIVE NEGATIVE Urine Nitrite NEGATIVE NEGATIVE Urine Bilirubin NEGATIVE NEGATIVE Urine Urobilinogen 4.0 < = 1.0 MG/DL Urine Leukocyte Esterase NEGATIVE NEGATIVE Urine RBC (Auto) NEGATIVE NEGATIVE Urine RBC NONE /HPF Urine WBC 0-2 /HPF Urine Squamous Epithelial Cells 0-2 /HPF Urine Crystals PRESENT H /LPF Urine Amorphous Sediment LARGE STEPHEN URATES H /LPF Urine Bacteria FEW H /HPF Urine Casts NONE /LPF Urine Mucus NEGATIVE /LPF Urine Culture Indicated NO Urine Opiates Screen NEGATIVE NEGATIVE Urine Oxycodone Screen NEGATIVE NEGATIVE Urine Methadone Screen NEGATIVE NEGATIVE Urine Propoxyphene Screen NEGATIVE NEGATIVE Urine Barbiturates Screen NEGATIVE NEGATIVE Ur Tricyclic Antidepressants Screen NEGATIVE NEGATIVE Urine Phencyclidine Screen NEGATIVE NEGATIVE Urine Amphetamines Screen NEGATIVE NEGATIVE Urine Methamphetamines Screen NEGATIVE NEGATIVE Urine Benzodiazepines Screen NEGATIVE NEGATIVE Urine Cocaine Screen NEGATIVE NEGATIVE Urine Cannabinoids Screen NEGATIVE NEGATIVE Blood Gas Puncture Site LEFT RADIAL Blood Gas Patient Temperature 98.2 Arterial Blood pH 7.34 *L 7.37-7.43 Arterial Blood Partial Pressure CO2 56 H 35-45 MMHG Arterial Blood Partial Pressure O2 67 L 79-93 MMHG Arterial Blood HCO3 29 H 23-27 MMOL/L Arterial Blood Total CO2 31.0 21.0-31.0 MMOL/L Arterial Blood Oxygen Saturation 94 94-100 % Arterial Blood Base Excess 3.9 H -2.5-2.5 MMOL/L Chi Test POSITIVE Blood Gas Ventilator Setting YES Blood Gas Inspired Oxygen 100% My Orders Orders - TEOFILO JOHNSON DO Ns Iv 1000 Ml (Sodium Chloride 0.9%) (11/24/19 07:49) Chest 1 View, Ap/Pa Only (11/24/19 08:00) Arterial Blood Gas (11/24/19 08:10) Ed Iv/Invasive Line Start (11/24/19 08:11) Ekg Tracing (11/24/19 08:11) Catheter(Urinary) Insert & Ass 03,15 (11/24/19 08:11) Ng Tube Insert & Assessment (11/24/19 08:11) O2 (11/24/19 08:11) Monitor-Rhythm Ecg Trace Only (11/24/19 08:11) Acetaminophen (11/24/19 08:11) Alcohol (11/24/19 08:11) Amylase (11/24/19 08:11) Arterial Blood Gas (11/24/19 08:11) BNP (11/24/19 08:11) Cbc With Automated Diff (11/24/19 08:11) Comprehensive Metabolic Panel (11/24/19 08:11) Creatine Kinase (11/24/19 08:11) Creatine Kinase Mb (11/24/19 08:11) Hs C Reactive Protein (11/24/19 08:11) Fibrin Degradation Products (11/24/19 08:11) Drug Screen Stat (Urine) (11/24/19 08:11) Lactic Acid Analyzer (11/24/19 08:11) Lipase (11/24/19 08:11) Magnesium (11/24/19 08:11) Procalcitonin (Pct) (11/24/19 08:11) Protime With Inr (11/24/19 08:11) Partial Thromboplastin Time (11/24/19 08:11) Ua Culture If Indicated (11/24/19 08:11) Blood Culture (11/24/19 08:11) Erythrocyte Sedimentation Rate (11/24/19 08:11) Myoglobin Serum (11/24/19 08:11) Troponin I (11/24/19 08:11) LDH (11/24/19 08:11) Covid 19 Inhouse Test (11/24/19 08:11) Norepinephrine 4 Mg/250 Ml (Norepinephri (11/24/19 08:12) Valproic Acid (11/24/19 08:15) Rt Request For Service (11/24/19 08:15) Levetiracetam Injection (Keppra Injectio (11/24/19 08:15) Sodium Bicarbonate 8.4% Vial (Sodium Bic (11/24/19 08:15) Cefepime Injection (Maxipime Injection) (11/24/19 08:30) Vancomycin Injection (Vancomycin Injecti (11/24/19 08:30) Methylprednisolone Sod Succ (Solu-Medrol (11/24/19 08:30) Norepinephrine 4 Mg/250 Ml (Norepinephri (11/24/19 08:45) Manual Differential (11/24/19 08:02) Ct Angio Chest W (11/24/19 08:52) Ct Head Wo-R/O Stroke (11/24/19 08:52) Ed Iv/Invasive Line Start (11/24/19 08:56) Lactated Ringers (Lr 1000 Ml Iv Solution (11/24/19 08:56) Iohexol Injection (Omnipaque 350 Mg/Ml 1 (11/24/19 09:15) Received Contrast (Hold Metformin- Contr (11/24/19 09:15) Sodium Chloride Flush (Catheter Flush Sy (11/24/19 09:15) Ns (Ivpb) (Sodium Chloride 0.9% Ivpb Bag (11/24/19 09:15) Medications Given in ED Current Medications Medications Dose Ordered Sig/Ariana Route Start Time Stop Time Status Last Admin Dose Admin Cefepime HCl 2000 mg/Sterile Water 20 ml @ 240 mls/hr ONCE ONCE IV 11/24/19 08:30 11/24/19 08:34 DC 11/24/19 09:01 240 MLS/HR Iohexol 100 ml ONCE ONCE IV 11/24/19 09:15 11/24/19 09:18 DC 11/24/19 10:18 82 ML Lactated Ringer's 1,000 ml @ 0 mls/hr Q0M ONCE IV 11/24/19 08:56 11/24/19 08:57 DC 11/24/19 09:04 0 MLS/HR Methylprednisolone Sodium Succinate 125 mg ONCE ONCE IVP 11/24/19 08:30 11/24/19 08:31 DC 11/24/19 09:01 125 MG Sodium Bicarbonate 50 meq ONCE ONCE IV 11/24/19 08:15 11/24/19 08:20 DC 11/24/19 08:32 50 MEQ Sodium Chloride 100 ml ONCE ONCE IV 11/24/19 09:15 11/24/19 09:18 DC 11/24/19 10:18 80 ML Sodium Chloride 1,000 ml @ ud STK-MED ONCE .ROUTE 11/24/19 07:49 11/24/19 07:53 DC 11/24/19 08:33 999 MLS/HR Vital Signs/I&O 11/24/19 07:45 Temp 36.7 Pulse 129 Resp 20 B/P (MAP) 75/59 (64) Pulse Ox 78 O2 Delivery Ambu Bag Capillary Refill : Progress Note : Progress Note PT PLACED IN ISOLATION ROOM PPE WORN AT ALL TIMES COVID-19 TESTING PERFORMED PT IMMEDIATELY INTUBATED ON ARRIVAL. GIVEN IV FLUIDS, AND BP UP FROM 70'S SYSTOLIC TO 120'S SYSTOLIC AT TIME OF ADMIT, LEVOPHED HELD NO DETERIORATION IN PT'S CONDITION DURING ER STAY GIVEN SOLU-MEDROL, CEFEPIME AND VANCOMYCIN CT SCANS ORDERED, AND DONE PT WAS BEING TRANSFERRED TO THE ICU. EMS, FIRE, MOSAIC STAFF AND RT STAFF ALL INFORMED OF + COVID TEST ECG Initial ECG Impression Date: Nov 24, 2019 Initial ECG Impression Time: 08:46 Initial ECG Rate: 104 Initial ECG Rhythm: S.Tach Diagnostic Imaging Comments CXR--PER RADIOLOGIST REPORT AT 0855 INDICATION: Unresponsive. Time of exam: 8:11 AM Correlation is made with prior chest from 12/23/2018. ET tube has been placed and has tip in good position above the anibal. NG tube passes into the stomach. There are bilateral perihilar and bibasilar infiltrates. No effusion or pneumothorax is detected. IMPRESSION: 1. Satisfactory endotracheal tube and nasogastric tube placement. 2. Development of bilateral pulmonary infiltrates. CT HEAD--PER RADIOLOGIST REPORT AT 1141 FINDINGS: The ventricles and sulci are within normal limits. No sulcal effacement or midline shift is identified. No acute intra-axial or extra-axial hemorrhage is detected. Cisterns are patent. Visualized paranasal sinuses are clear. IMPRESSION: No acute intracranial process is detected. CT CHEST ANGIOGRAM--PER RADIOLOGIST REPORT AT 1141 FINDINGS: Patient is intubated. ET tube has tip above the anibal. NG tube passes into the stomach. Evaluation of pulmonary arterial system is without evidence of thromboemboli. No definite filling defects are seen within central, lobar or segmental branches. The thoracic aorta is normal caliber. No dissection is detected. There is no pericardial or pleural fluid. There are patchy airspace infiltrates in bilateral upper lobes. There is significant consolidation with air bronchograms in bilateral lower lobes. The upper abdomen is unremarkable. IMPRESSION: 1. No evidence of pulmonary embolism or thoracic aortic dissection. 2. Significant bilateral lower lobe consolidation consistent with pneumonia. There is also patchy airspace bilateral upper lobe pulmonary infiltrates. Reviewed: Reviewed by La Critical Care Note Critical Care Total Time (minutes) 60 Departure Communication (Admissions) 0825--MESSAGE TO DR. TANNER IN SURGERY FOR NEED FOR CENTRAL LINE 0828--SPOKE WITH DR. WHATLEY, HOSPITALIST, ACCEPTS PT FOR ADMIT. WILL DO CT HEAD AND CHEST ANGIOGRAM 912--CALLED DR WHATLEY, MESSAGE LEFT ON CELL PHONE 0915--DR TANNER HERE, PT IS COVID + AND BP IS UP AT THIS TIME, HE WILL PLACE CENTRAL LINE WHEN PT ARRIVES IN ICU 0918--SPOKE WITH DR. WHATLEY, UPDATE ON PT'S CONDITION. NO ADDITIONAL ORDERS AT THIS TIME Impression Primary Impression: Acute respiratory failure with hypoxia and hypercapnia Additional Impressions: Acidosis Severe sepsis Lab test positive for detection of COVID-19 virus Seizure disorder MR BY HISTORY Elevated troponin Hyperglycemia Bilateral pneumonia Disposition: ADMITTED INPATIENT Condition: Stable (BUT SERIOUS) Admissions Decision to Admit Reason: Admit from ER (General) Decision to Admit/Date: Nov 24, 2019 Time/Decision to Admit Time: 08:30 Departure-Patient Inst. Referrals: JORDEN WYLIE MD (PCP/Family) Primary Care Physician TEOFILO JOHNSON DO Nov 24, 2019 08:55
[2019-11-24] MEDS: VANCOMYCIN INJECTION 1,000 MG in NS (IVPB) 250 ML IV SCH (09:01)
[2019-11-24 09:06] LABS: CREATINE KINASE MB 2.5 NG/ML (<6.6)
[2019-11-24 09:09] LABS: BILIRUBIN,URINE NEGATIVE (NEGATIVE); CLARITY,URINE SL CLOUDY; COLOR,URINE YELLOW; GLUCOSE, URINE (UA) NEGATIVE (NEGATIVE); KETONES,URINE NEGATIVE (NEGATIVE); LEUKOCYTE ESTERASE ,URINE NEGATIVE (NEGATIVE); NITRITE,URINE NEGATIVE (NEGATIVE); PROTEIN,URINE 2+ (NEGATIVE)
[2019-11-24] MEDS ORDERED: IOHEXOL 350 MG/ML 100 ML (OMNIPAQUE 350) VIAL IV ONE (09:15)
[2019-11-24] MEDS ORDERED: NS 100 ML (IVPB) BAG IV ONE (09:15)
[2019-11-24] MEDS ORDERED: CATHETER FLUSH 10 ML SYR IV PRN (09:15)
[2019-11-24] MEDS ORDERED: HOLD METFORMIN - RECEIVED CONTRAST 20 ML VIAL IV SCH (09:15)
[2019-11-24 09:22] LABS: AMORPHOUS SEDIMENT,UR LARGE AMOR URATES /LPF; BACTERIA,URINE FEW /HPF; SQUAMOUS EPITHELIAL CELL,UR 0-2 /HPF; WBC,URINE 0-2 /HPF
[2019-11-24 09:30] LABS: AMPHETAMINE SCREEN, URINE NEGATIVE (NEGATIVE); BARBITURATE SCREEN URINE NEGATIVE (NEGATIVE); BENZODIAZEPINES SCREEN URINE NEGATIVE (NEGATIVE); CANNABINOID SCREEN, URINE NEGATIVE (NEGATIVE); COCAINE SCREEN URINE NEGATIVE (NEGATIVE); METHADONE STAT NEGATIVE (NEGATIVE); METHAMPHETAMINE SCREEN URINE S NEGATIVE (NEGATIVE); OPIATE SCREEN URINE NEGATIVE (NEGATIVE); OXYCODONE STAT NEGATIVE (NEGATIVE); PROPOXYPHENE STAT NEGATIVE (NEGATIVE); TRICYCLIC ANTIDEPRESSANTS SCRE NEGATIVE (NEGATIVE)
[2019-11-24 09:41] LABS: ABG BASE EXCESS 3.9 MMOL/L (-2.5-2.5); ABG OXYGEN SATURATION 94 % (94-100); ABG PCO2 56 MMHG (35-45); ABG PO2 67 MMHG (79-93)
--- NOTE | 2019-11-24 09:50 | NUR ---
rt at pt bedside, suctioning et tube at this time.
[2019-11-24 09:51] LABS: ABG PH 7.34 (7.37-7.43); ALLENS TEST POSITIVE; INSPIRED O2 100%; PATIENT TEMP 98.2; VENTILATOR YES
--- NOTE | 2019-11-24 09:56 | NUR ---
50 mg rocuronium given at this time per dr mosquera orders.
[2019-11-24] MEDS ORDERED: ROCURONIUM 10 MG/ML 5 ML SYRINGE IV ONE ×2 (10:00→14:25)
[2019-11-24] MEDS ORDERED: AZITHROMYCIN 500 MG/NS 250 ML IVPB IV SCH ×2 (10:05)
[2019-11-24] MEDS ORDERED: PROPOFOL DRIP (ICU) 100 ML IV ONE (10:13)
--- NOTE | 2019-11-24 10:24 | Diagnostic Imaging Report ---
PROCEDURE: CT head wo r/o stroke. TECHNIQUE: Multiple contiguous axial images were obtained through the brain without the use of intravenous contrast. Auto Exposure Controls were utilized during the CT exam to meet ALARA standards for radiation dose reduction. INDICATION: Found down and seizure. COMPARISON: Comparison is made to prior head CT from 11/24/2018. FINDINGS: The ventricles and sulci are within normal limits. No sulcal effacement or midline shift is identified. No acute intra-axial or extra-axial hemorrhage is detected. Cisterns are patent. Visualized paranasal sinuses are clear. IMPRESSION: No acute intracranial process is detected. Dictated by: Dictated on workstation # [id number]
--- NOTE | 2019-11-24 10:27 | Diagnostic Imaging Report ---
PROCEDURE: CT angiography of the chest with contrast. TECHNIQUE: Multiple contiguous axial images were obtained through the chest after uneventful bolus administration of intravenous contrast. 3D reconstructed CTA MIP acquisitions were also performed. Auto Exposure Controls were utilized during the CT exam to meet ALARA standards for radiation dose reduction. INDICATION: Found down with seizure activity. COMPARISON: Correlation is made with prior CT from 03/25/2017. FINDINGS: Patient is intubated. ET tube has tip above the anibal. NG tube passes into the stomach. Evaluation of pulmonary arterial system is without evidence of thromboemboli. No definite filling defects are seen within central, lobar or segmental branches. The thoracic aorta is normal caliber. No dissection is detected. There is no pericardial or pleural fluid. There are patchy airspace infiltrates in bilateral upper lobes. There is significant consolidation with air bronchograms in bilateral lower lobes. The upper abdomen is unremarkable. IMPRESSION: 1. No evidence of pulmonary embolism or thoracic aortic dissection. 2. Significant bilateral lower lobe consolidation consistent with pneumonia. There is also patchy airspace bilateral upper lobe pulmonary infiltrates. Dictated by: Dictated on workstation # [id number]
[2019-11-24] MEDS ORDERED: VANCOMYCIN INJECTION 0.1 MG in NS (IVPB) 250 ML IV SCH (10:30)
[2019-11-24] MEDS: PROPOFOL DRIP (ICU) 100 ML IV SCH ×3 (10:45→22:16)
[2019-11-24] MEDS: NOREPINEPHRINE 4 MG/250 ML 250 ML IV SCH ×2 (10:47→16:08)
[2019-11-24] MEDS: D5 1/2 NS W/KCL 20 MEQ/L 1,000 ML IV SCH ×3 (10:53→22:15)
--- NOTE | 2019-11-24 11:44 | NUR ---
PTD VANCOMYCIN LABS: SCR 1.71 PLAN: Patient only received 1 gram vancomycin in the ED (2grams ordered but only 1 gram given). We will dose at 15mg/kg IV q12 hours, next dose due At 1800 today. Order is x 3 days, so will not order trough level unless scr changes or plan to continue longer.
[2019-11-24] MEDS ORDERED: PROPOFOL DRIP (ICU) 100 ML IV SCH (11:45)
[2019-11-24] MEDS ORDERED: CEFEPIME 1,000 MG/SWFI 10 ML IV PUSH IV SCH ×2 (12:00)
[2019-11-24] MEDS: NS IV 1000 ML 1,000 ML IV SCH ×3 (12:13→22:17)
[2019-11-24] MEDS ORDERED: NS IV 500 ML 500 ML IV SCH (12:14)
[2019-11-24] MEDS ORDERED: PIPERACILLIN/TAZO 4.5 GM/NS 100 ML IV NR ×2 (12:30)
--- NOTE | 2019-11-24 12:43 | Occ Therapy Progress Note ---
Therapy Progress Note OT orders received, chart reviewed. Pt is intubated sedated. OT to initiate OT eval/ treat when medically stable and able to participate in skilled tx. TRACI VUONG OTR Nov 24, 2019 12:43
--- NOTE | 2019-11-24 12:45 | History & Physical-Hospitalist ---
History of Present Illness HPI/Chief Complaint Milad Duran is a 49-year-old male with past medical history of MR, schizophrenia, seizure disorder, who presented with shortness of breath. He lives in a [facility]. He was found to be short of breath with a cough last night. This morning his breathing was worse. EMS was called and is found to be hypoxic. They had to perform bag mask ventilation. He reportedly had seizure-like activity on the way to the hospital. He was intubated upon arrival. He is unable to provide any history due to his clinical condition. Source: RN/MD Exam Limitations: clinical condition Date Seen 11/24/19 Time Seen by a Provider: 11:05 Attending Physician Evelyn Hutchinson MD PCP Nelida Marroquin MD Referring Physician Date of Admission Nov 24, 2019 at 09:33 Home Medications & Allergies Home Medications Reviewed patient Home Medication Reconciliation performed by pharmacy medication reconciliations vending machine technician and/or nursing. Patients Allergies have been reviewed. Allergies Allergies Coded Allergies fluoxetine (Verified Allergy, Unknown, 03/05/17) Past Myyttqa-Ibaazm-Spirrc Hx Past Med/Social Hx: Reviewed and Corrections made Patient Social History Alcohol Use: Denies Use Recreational Drug Use: No Smoking Status: Current Everyday Smoker Type Used: Cigarettes 2nd Hand Smoke Exposure: No Recent Foreign Travel: No Contact w/other who traveled: No Recent Hopitalizations: No Recent Infectious Disease Expo: No Immunizations Up To Date Tetanus Booster (TDap): More than 5yrs Date of Influenza Vaccine: Dec 06, 2016 Seasonal Allergies Seasonal Allergies: No Past Medical History Respiratory: Pneumonia Cardiac: High Cholesterol, Hypertension Neurological: Developmental Disorder, Seizure Disorder Gastrointestinal: Gastroesophageal Reflux, Chronic Constipation Psychosocial: Schizophrenia, Violent Behavior, Depression Skin/Integumentary: Psoriasis History of Blood Disorders: No (UNKNOWN) Family History Patient reports no known family medical history. No Pertinent Family Hx Review of Systems ROS-Unable to Obtain: intubated and sedated Constitutional: see HPI Physical Exam Physical Exam Vital Signs Vital Signs - First Documented 11/24/19 11/24/19 07:45 10:20 Temp 36.7 Pulse 129 Resp 20 B/P (MAP) 75/59 (64) Pulse Ox 78 O2 Delivery Ambu Bag O2 Flow Rate 100.00 FiO2 100 Capillary Refill : Less Than 3 Seconds Height, Weight, BMI Height: 5'9.00" Weight: 223lbs. 5.0oz. 101.571225ic; 30.00 BMI Method:Estimated General Appearance: Other (intubated and sedated) Respiratory: Crackles, Decreased Breath Sounds, Other Cardiovascular: No Edema, No Murmur, Tachycardia Gastrointestinal: Normal Bowel Sounds, Soft Extremity: Normal Inspection, No Pedal Edema Neurologic/Psychiatric: Other (sedated) Skin: Normal Color, Warm/Dry Results Results/Procedures Labs Laboratory Tests 11/24/19 08:02 Patient resulted labs reviewed. Imaging: Reviewed Imaging Report Assessment/Plan Admission Diagnosis Septic shock Admission Status: Inpatient Order (span 2 midnights) Reason for Inpatient Admission: ARDS due to COVID-19 Assessment and Plan Septic shock Bilateral pneumonia Acute respiratory distress syndrome due to COVID-19 Acute kidney injury Lactic acidosis Elevated troponin Seizures SIRS+ with 21% bands, tachycardia, and tachypnea septic source identified as pneumonia Septic shock with hypotension and lactic acidosis Pressors as needed vancomycin and Zosyn COVID positive Decadron Remdesivir Convalescent plasma Ventilator settings with FiO2 100 percent and PEEP 10 Pulmonology and eICU consulted, appreciate assistance continue Shaheed for seizures, Ativan as needed Troponin mildly elevated, likely due to demand ischemia creatinine 1.7, up from baseline 0.6 Lactic acid 5 on arrival IV fluids Nicotine dependence, cigarettes Nicotine patch MR Schizophrenia Resume home meds when able DVT Prophylaxis: Lovenox Critical Care Critically Ill Patient Diagnosis/Problems Diagnosis/Problems (1) Septic shock Status: Acute (2) Bilateral pneumonia Status: Acute (3) Acute respiratory distress syndrome (ARDS) due to 2019 novel coronavirus Status: Acute (4) Acute respiratory failure with hypoxia and hypercapnia Status: Acute (5) Lactic acidosis Status: Acute (6) Acute kidney injury superimposed on chronic kidney disease Status: Acute (7) Seizure disorder Status: Acute (8) Nicotine dependence, cigarettes, uncomplicated Status: Chronic (9) Mental retardation Status: Chronic (10) Paranoid schizophrenia Status: Chronic Clinical Quality Measures DVT/VTE Risk/Contraindication: Risk Factor Score Per Nursin RFS Level Per Nursing on Admit: 4+=Very High EVELYN HUTCHINSON MD Nov 24, 2019 12:45
[2019-11-24] MEDS ORDERED: ILOP8TAB2 PO (13:29)
[2019-11-24] MEDS ORDERED: CLON1TAB PO (13:29)
[2019-11-24] MEDS ORDERED: CLON1TAB13 PO (13:29)
[2019-11-24] MEDS ORDERED: EZET10TA49 PO (13:29)
[2019-11-24] MEDS ORDERED: BENZ1TAB6 PO (13:29)
[2019-11-24] MEDS ORDERED: FAMO40OR5 PO (13:29)
[2019-11-24] MEDS ORDERED: LEVE100S16 PO (13:31)
[2019-11-24] MEDS ORDERED: LORA5SOL7 PO (13:43)
[2019-11-24] MEDS ORDERED: DOCU50LI PO (13:43)
[2019-11-24] MEDS ORDERED: [UNRECOGNIZED DRUG - CODE] PO (13:43)
[2019-11-24] MEDS ORDERED: LOPE2CAP14 PO (13:43)
[2019-11-24] MEDS ORDERED: NEOM28.410 TP (13:43)
[2019-11-24] MEDS ORDERED: OXYB5SYR2 PO (13:43)
[2019-11-24] MEDS ORDERED: ALB0.5V INH (13:43)
[2019-11-24] MEDS ORDERED: [UNRECOGNIZED DRUG - CODE] PO (13:43)
--- NOTE | 2019-11-24 13:44 | NUR ---
THE MED REC WAS ENTERED USING THE MAR FROM [facility]- THERE WAS NOT A COPY ON HIS CHART THEREFORE I HAD TO CALL [facility] AND HAD THEM FAX IT OVER. I WILL ATTACH A COPY TO THE CHART
[2019-11-24] MEDS: ENOXAPARIN 100 MG/1 ML (LOVENOX) SYR SC SCH (14:05)
--- NOTE | 2019-11-24 14:34 | NUR ---
"Received dietary consult regarding pt's vent status. Est kcal needs: 1500 kcal | 15 kcal/kg Est Pro needs: 60 g Pro | 0.6 g Pro/kg Note pt is currently intubated. If pt is to remain NPO for more than 3days, would recommend the following TF: Pulmocare 1.5 kcal at goal rate of 45ml/hr. Begin at 10ml/hr and increase by 10ml q6h as medically able and as tolerated. Monitor gastric residuals for tolerance. At goal rate, provides 1620 kcal (16 kcal/kg); 68 g Pro (0.7 g Pro/kg); and 848ml free water. Flush with 75ml water q4h for hydration status. With flushes, provides 1298ml free water. Will continue to follow and reassess as pt needs, intake, and status change. Hakeem Fraga, MS, RD, LD [phone] (cell)"
--- NOTE | 2019-11-24 14:45 | Physical Therapy Progress Note ---
Therapy Progress Note Orders for PT eval received but patient is currently intubated and sedated. Will monitor and start when patient is medically stable and able to participate. RAJI GOMEZ PT Nov 24, 2019 14:45
[2019-11-24] MEDS: RT-ALBUTEROL INHALER HFA (VENTOLIN HFA) 18 GM IH SCH ×3 (14:49→22:10)
[2019-11-24 14:55] LABS: ABG BASE EXCESS 3.9 MMOL/L (-2.5-2.5); ABG OXYGEN SATURATION 98 % (94-100); ABG PCO2 44 MMHG (35-45); ABG PH 7.43 (7.37-7.43); ABG PO2 112 MMHG (79-93); ABG TCO2 28.7 MMOL/L (21.0-31.0)
[2019-11-24 14:58] LABS: ALLENS TEST POSITIVE; INSPIRED O2 100%
[2019-11-24 14:59] LABS: PATIENT TEMP 103.3; VENTILATOR YES
[2019-11-24] MEDS ORDERED: REMDESIVIR INJ (NON-FORMULARY) 200 MG in NS (IVPB) 210 ML IV NR (15:00)
[2019-11-24 15:33] LABS: BUN/CREATININE RATIO 11; CALCIUM 7.7 MG/DL (8.5-10.1); CARBON DIOXIDE 27 MMOL/L (21-32); CHLORIDE 102 MMOL/L (98-107); CREATININE SERUM 0.98 MG/DL (0.60-1.30); GFR ESTIMATED > 60; GLUCOSE 161 MG/DL (70-105); POTASSIUM 3.8 MMOL/L (3.6-5.0); SODIUM 141 MMOL/L (135-145)
[2019-11-24] MEDS ORDERED: RT-ALBUTEROL INHALER HFA (VENTOLIN HFA) 18 GM IH PRN (16:00)
[2019-11-24] MEDS ORDERED: ACETAMINOPHEN 325 MG TABLET PO PRN (16:45)
[2019-11-24] MEDS ORDERED: NS IV 1000 ML 1,000 ML IV SCH (18:15)
[2019-11-24] MEDS: PIPERACILLIN/TAZOBACTAM (BULK) 4.5 GM in NS (IVPB) 100 ML IV SCH (19:27)
[2019-11-24] MEDS: VANCOMYCIN 1500 MG/NS 500 ML IVPB IV SCH ×2 (19:27)
[2019-11-25] VITALS (21 sets, daily range): BP systolic 93–126; BP diastolic 60–94
[2019-11-25] MEDS: ENOXAPARIN 100 MG/1 ML (LOVENOX) SYR SC SCH ×2 (00:15→12:59)
[2019-11-25] MEDS: PIPERACILLIN/TAZOBACTAM (BULK) 4.5 GM in NS (IVPB) 100 ML IV SCH ×2 (02:11→10:44)
[2019-11-25] MEDS: RT-ALBUTEROL INHALER HFA (VENTOLIN HFA) 18 GM IH SCH ×4 (02:46→14:09)
[2019-11-25 02:57] LABS: BASOPHILS % (AUTO) 0 % (0-10); EOSINOPHILS # (AUTO) 0.2 10^3/uL (0.0-0.3); EOSINOPHILS % (AUTO) 3 % (0-10); HEMATOCRIT 35 % (40-54); HEMOGLOBIN 11.5 G/DL (13.3-17.7); LYMPHOCYTES % (AUTO) 12 % (12-44); MEAN CORPUSCULAR HEMOGLOBIN 26 PG (25-34); MEAN CORPUSCULAR HGB CONC 33 G/DL (32-36); MEAN CORPUSCULAR VOLUME 79 FL (80-99); MEAN PLATELET VOLUME 9.8 FL (7.4-10.4); MONOCYTES # (AUTO) 0.3 X 10^3 (0.0-1.0); MONOCYTES % (AUTO) 4 % (0-12); NEUTROPHILS # (AUTO) 6.6 X 10^3 (1.8-7.8); NEUTROPHILS % (AUTO) 81 % (42-75); PLATELET COUNT 174 10^3/uL (130-400); WHITE BLOOD COUNT 8.1 10^3/uL (4.3-11.0)
[2019-11-25] MEDS: NS IV 1000 ML 1,000 ML IV SCH ×2 (03:06→04:03)
[2019-11-25 03:10] LABS: ABG BASE EXCESS 1.7 MMOL/L (-2.5-2.5); ABG OXYGEN SATURATION 98 % (94-100); ABG PCO2 30 MMHG (35-45); ABG PH 7.52 (7.37-7.43); ABG PO2 93 MMHG (79-93); ABG TCO2 25.7 MMOL/L (21.0-31.0)
[2019-11-25 03:11] LABS: ALLENS TEST YES-POS; INSPIRED O2 50%; VENTILATOR YES
[2019-11-25 03:11] LABS: CHLORIDE 110 MMOL/L (98-107); POTASSIUM 3.1 MMOL/L (3.6-5.0); SODIUM 143 MMOL/L (135-145)
[2019-11-25 03:13] LABS: CALCIUM 7.2 MG/DL (8.5-10.1); GLUCOSE 206 MG/DL (70-105)
[2019-11-25 03:15] LABS: CARBON DIOXIDE 20 MMOL/L (21-32)
[2019-11-25 03:17] LABS: CREATININE SERUM 0.68 MG/DL (0.60-1.30); GFR ESTIMATED > 60
[2019-11-25 03:18] LABS: BUN/CREATININE RATIO 13
[2019-11-25 03:20] LABS: MAGNESIUM 2.1 MG/DL (1.6-2.4); PHOSPHORUS 0.9 MG/DL (2.3-4.7)
[2019-11-25] MEDS: POTASSIUM CL 10MEQ/50ML IVPB 50 ML IV SCH ×4 (04:17→05:14)
[2019-11-25] MEDS: PROPOFOL DRIP (ICU) 100 ML IV SCH ×3 (04:18→15:43)
[2019-11-25] MEDS: inSUlin ASPART (NovoLOG) 1 UNIT/0.01 ML (CHARGE PER UNIT) SC SCH ×2 (04:18→12:58)
--- NOTE | 2019-11-25 04:34 | Pulmonary Consultation ---
History of Present Illness History of Present Illness Date Seen by Provider: Nov 25, 2019 Time Seen by Provider: 04:29 Date of Admission History of Present Illness 49yo with hx of schizojphrenia, and seizures from detention presented to ED secondary to worsening SOB. Pt had persistent respiratory failure while in the ED and was intubated. He reportedly had seizure-like activity on the way to the hospital. I am consulted for ICU management. Allergies and Home Medications Allergies Coded Allergies: fluoxetine (Verified Allergy, Unknown, 03/05/17) Home Medications Acetaminophen 325 Mg Tablet, PO UD PRN for PAIN-MILD OR TEMPATURE, (Reported) PER PACKAGE DIRECTIONS Acetaminophen 500 Mg Tablet, PO UD PRN for PAIN-MILD OR TEMPATURE, (Reported) PER PACKAGE DIRECTIONS Albuterol Sulfate 2.5 Mg/0.5 Ml Vial.neb, 2.5 MG INH Q4H, (Reported) Benztropine Mesylate 1 Mg Tablet, 1 MG PO BID, (Reported) Carbamide Peroxide 15 Ml Drops, EACH EAR BID PRN for EXCESS CERUM, (Reported) PER PACKAGE DIRECTIONS Carboxymethyl/Glycerin/Poly80 10 Ml Drops, 1 DROP OU 5XD PRN for DRY EYES, (Reported) Clonazepam 1 Mg Tablet, 0.5 MG PO 0700,1500, (Reported) TAKES OF A 1MG TAB Clonazepam 1 Mg Tablet, 2 MG PO 2000, (Reported) TAKES 2 (1MG) TABS Diphenhydramine HCl 25 Mg Capsule, 25 MG PO TID PRN for ALLERGIES/ITCHING, (Reported) Divalproex Sodium 125 Mg Cap.sprink, 2,000 MG PO 1999, (Reported) TAKES 16 (125MG) CAPSULES Docusate Sodium 10 Mg/Ml Liquid, 10 ML PO BID PRN for CONSTIPATION-1ST LINE, (Reported) Eucalyptus/Menthol 1 Each Lozenge, 1 KELSI MM 5XD PRN for COUGH, (Reported) Ezetimibe 10 Mg Tablet, 10 MG PO 2000, (Reported) Famotidine 40 Mg/5 Ml Oral.susp, 2.5 ML PO BID, (Reported) Folic Acid 1 Mg Tablet, 0.5 MG PO DAILY, (Reported) TAKES OF A 1MG TAB Guaifenesin/Dextromethorphan 237 Ml Liquid, PO TID PRN for COUGH, (Reported) PER PACKAGE DIRECTIONS Hydrocortisone 42 Gm Cream..g., TP TID PRN for ITCHING, (Reported) Ibuprofen 200 Mg Tablet, PO TID PRN for PAIN-MILD OR TEMPATURE, (Reported) PER PACKAGE DIRECTIONS Iloperidone 8 Mg Tablet, 8 MG PO BID, (Reported) Levetiracetam 100 Mg/1 Ml Solution, 10 ML PO BID, (Reported) Lidocaine HCl/Menthol 76.5 Gm Cream..g., TP UD PRN for SORE MUSCLES, (Reported) PER PACKAGE DIRECTIONS Loperamide HCl 2 Mg Capsule, 2 MG PO TID PRN for DIARRHEA, (Reported) Loratadine 5 Mg/5 Ml Solution, 10 ML PO DAILY PRN for ALLERGY SYMPTOMS, (Reported) Mag Hydrox/Aluminum Hyd/Simeth 355 Ml Oral.susp, PO TID PRN for INDIGESTION, (Reported) PER PACKAGE DIRECTIONS Magnesium Hydroxide 400 Mg/5 Ml Oral.susp, PO TID PRN for CONSTIPATION-7TH LINE, (Reported) PER PACKAGE DIRECTIONS Metoprolol Succinate 25 Mg Tab.er.24h, 25 MG PO DAILY, (Reported) Neomycn/Baci Zn/Pmyx Bs/Pramox 28.4 Gm Oint...g., 1 APPLIC TP TID PRN for MINOR CUTS, SCARAPES,ABRASIONS, (Reported) Oxybutynin Chloride 5 Mg/5 Ml Syrup, 5 ML PO BID, (Reported) Phenyleph/Mineral Oil/Petrolat 28 Gm Oint.appl, RC QID PRN for HEMORRHOIDS, (Reported) Phenylephrine HCl/Acetaminophn 1 Each Tablet, 1 EACH PO TID PRN for CONGESTION, (Reported) Tolnaftate 133 Gm Aero.powd, TP BID PRN for ATHLETE'S FOOT, (Reported) Tramadol HCl 50 Mg Tablet, 25-50 MG PO Q8H PRN for PAIN-MODERATE, (Reported) Vitamin E (Dl,Tocopheryl Acet) 100 Unit/0.25 Ml Drops, 10 DROPS PO DAILY, (Reported) Vortioxetine Hydrobromide 20 Mg Tablet, 20 MG PO DAILY, (Reported) Past Ttvexeh-Icuadu-Lvbdhr Hx Past Med/Social Hx: Reviewed and Corrections made Patient Social History Alcohol Use: Denies Use Recreational Drug Use: No Smoking Status: Current Everyday Smoker Type Used: Cigarettes 2nd Hand Smoke Exposure: No Recent Foreign Travel: No Contact w/Someone Who Travel: No Recent Infectious Disease Expo: No Recent Hopitalizations: No Physical Abuse: No Sexual Abuse: No Mistreated: No Fear: No Immunizations Up To Date Tetanus Booster (TDap): More than 5yrs Date of Influenza Vaccine: Dec 06, 2016 Seasonal Allergies Seasonal Allergies: No Past Medical History Surgeries: No (UNKNOWN) Respiratory: Yes (ASPIRATION PNEUMONIA/INTUBATED 11/2018) Pneumonia Cardiac: Yes High Cholesterol, Hypertension Neurological: Yes Developmental Disorder, Seizure Disorder Genitourinary: No (UNKNOWN) Gastrointestinal: Yes Gastroesophageal Reflux, Chronic Constipation Musculoskeletal: No (UNKNOWN) Endocrine: No (UNKNOWN - PT IS MR) HEENT: No (UNKNOWN) Cancer: No (UNKNOWN) Psychosocial: Yes (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 No Pertinent Family Hx Review of Systems Time Seen by Provider: 04:31 Sepsis Event Evaluation Height, Weight, BMI Height: 5'9.00" Weight: 223lbs. 5.0oz. 101.815355bv; 30.00 BMI Method:Estimated Exam Exam Vital Signs Date Time Temp Pulse Resp B/P (MAP) Pulse Ox O2 Delivery O2 Flow Rate FiO2 11/25/19 04:18 81 105/69 11/25/19 03:55 94 Mechanical Ventilator 40 11/25/19 03:50 36.0 Mechanical Ventilator 40.00 11/25/19 03:00 73 23 115/70 (85) 96 Mechanical Ventilator 50.00 11/25/19 02:46 74 24 96 60 11/25/19 02:00 75 24 113/78 (90) 97 Mechanical Ventilator 50.00 11/25/19 01:00 80 11/25/19 01:00 75 24 114/76 (89) 97 Mechanical Ventilator 50.00 11/25/19 00:00 80 24 105/71 (82) 96 Mechanical Ventilator 50.00 11/24/19 23:57 36.2 Mechanical Ventilator 50.00 11/24/19 23:55 96 Mechanical Ventilator 50 11/24/19 23:00 85 23 110/72 (85) 96 Mechanical Ventilator 50.00 11/24/19 22:16 86 119/79 9/17/20 22:10 87 24 97 60 11/24/19 22:00 78 24 119/79 (92) 96 Mechanical Ventilator 50.00 11/24/19 21:00 36.8 79 24 123/80 (94) 96 Mechanical Ventilator 11/24/19 20:00 97 Mechanical Ventilator 50 11/24/19 20:00 81 24 123/81 (95) 95 Mechanical Ventilator 50.00 11/24/19 19:00 85 11/24/19 19:00 84 24 124/82 (96) 95 Mechanical Ventilator 50.00 11/24/19 18:41 81 24 96 60 11/24/19 18:00 87 16 135/90 (105) 96 Mechanical Ventilator 60.00 11/24/19 18:00 38.1 11/24/19 17:46 38.1 11/24/19 17:16 38.6 11/24/19 17:00 117 138/87 11/24/19 17:00 117 24 96 Mechanical Ventilator 60.00 11/24/19 16:34 38.7 11/24/19 16:00 97 10 138/87 (104) 97 Mechanical Ventilator 60.00 11/24/19 16:00 98 Mechanical Ventilator 11/24/19 15:26 38.7 105 24 143/83 98 60 11/24/19 15:17 38.6 110 24 145/88 98 Mechanical Ventilator 70 11/24/19 15:12 38.6 109 24 141/89 98 Mechanical Ventilator 90 11/24/19 15:00 114 11 141/89 (106) 98 Mechanical Ventilator 60.00 11/24/19 14:50 106 24 99 100 11/24/19 14:00 104 132/82 (99) 97 Mechanical Ventilator 100.00 11/24/19 13:01 102 11/24/19 13:00 103 120/80 (93) 96 Mechanical Ventilator 100.00 11/24/19 12:44 36.7 129 11/24/19 12:00 122 19 138/100 (113) 97 Mechanical Ventilator 100.00 11/24/19 12:00 98 Mechanical Ventilator 11/24/19 11:16 Mechanical Ventilator 11/24/19 11:00 93 24 112/76 (88) 93 Mechanical Ventilator 100.00 11/24/19 10:45 99 141/95 11/24/19 10:35 102 11/24/19 10:30 102 141/95 (110) 90 Mechanical Ventilator 100.00 11/24/19 10:20 101 24 89 100 11/24/19 10:20 37.6 103 24 141/95 (110) 88 Mechanical Ventilator 100.00 11/24/19 10:15 37.0 107 20 139/97 95 Mechanical Ventilator 11/24/19 07:45 36.7 129 20 75/59 (64) 78 Ambu Bag I & O 11/25/19 07:00 Intake Total 4965 ml Output Total 3125 ml Balance 1840 ml Height & Weight Height: 5'9.00" Weight: 223lbs. 5.0oz. 101.869843kk; 30.00 BMI Method:Estimated General Appearance: Other (intubated and sedated) HEENT: PERRL/EOMI, Pharynx Normal Neck: Normal Inspection, Supple Respiratory: Crackles, Decreased Breath Sounds, Other Cardiovascular: No Edema, No Murmur, Tachycardia Capillary Refill: Less Than 3 Seconds Gastrointestinal: soft Extremity: Normal Inspection, No Pedal Edema Neurologic/Psychiatric: Other (sedated) Skin: Normal Color, Warm/Dry Results Lab Laboratory Tests 11/24/19 08:02 11/24/19 15:06 11/25/19 02:45 Assessment/Plan Assessment/Plan Acute respiratory failure with ARDS secondary to COVID-19 -- Pa02/Fi02 is 186 -Continue ventilator therapy -Continue Propofol and add Versed gtt -Continue Remdesivir -Convalescent plasma -Decadron -Will start proning patient for 16hours per day as tolerated -PT is currently is on a tidal volume of 550 and RR of 24. -Pt's ideal body wt is 75kg -In order to acheive lung protective ventilation will decrease VT to 450, and increase RR to 26. -Repeat ABG in 1hr. -Start TF with pulmicare at 10-15 cc/hr. -Please do not titrate above this unless ordered by myself or EICU. -It is ok to continue TF while pt is in prone position. Septic shock -IVF -Continue zosyn, and vanco -Levophed is off currently. Hyperglycemia -Change IVF to LR at 75cc/hr Metabolic lactic acidosis -IVF Acute renal failure -Monitor Hx of seizures -Continue Keppra -Add Versed gtt to propofol -Add PRN Ativan for seizures Tobacco dependance MR/schizophrenia hx UPDATE 0900: RN notified me patient is having acute seizure activity. She has given a total of 6mg of ativan and he is still having seizure activity while in prone position. Keppra is ordered. Rn is going to give another 4mg of ativan secondary to persistent seizure activity. I called [facility] transfer line to request transfer for neurology and continuous EEG monitoring. Will await acceptance and bed placement. Rn is working on obtaining consent. JESSICA LEÓN DO Nov 25, 2019 04:34
[2019-11-25] MEDS ORDERED: LORazepam INJ 2 MG/ML (ATIVAN) VIAL IV PRN (04:45)
[2019-11-25] MEDS ORDERED: MIDAZOLAM INJECTION FOR DRIPS 50 MG in NS (IVPB) 90 ML IV SCH (04:45)
[2019-11-25] MEDS ORDERED: LACTATED RINGERS 1,000 ML IV ONE (04:50)
[2019-11-25] MEDS ORDERED: NS (IVPB) 100 ML ONE (04:51)
[2019-11-25] MEDS ORDERED: MIDAZOLAM FOR DRIPS 10 MG/2 ML VIAL ONE (04:51)
[2019-11-25] MEDS ORDERED: POTASSIUM PHOSPHATE INJ 30 MM in NS (IVPB) 250 ML IV ONE (05:00)
[2019-11-25] MEDS: VANCOMYCIN 1500 MG/NS 500 ML IVPB IV SCH ×2 (05:10)
[2019-11-25] MEDS ORDERED: LACTATED RINGERS 1,000 ML IV SCH (05:15)
[2019-11-25] MEDS ORDERED: POTASSIUM CL 10MEQ/50ML IVPB 50 ML IV SCH (06:00)
[2019-11-25] MEDS ORDERED: MAGNESIUM 1 GM/100 ML IVPB 100 ML IV SCH (06:00)
[2019-11-25] MEDS ORDERED: KCL 20 MEQ TAB (K-DUR) PO SCH (06:00)
[2019-11-25 06:57] LABS: ABG BASE EXCESS 1.1 MMOL/L (-2.5-2.5); ABG OXYGEN SATURATION 97 % (94-100); ABG PCO2 32 MMHG (35-45); ABG PH 7.49 (7.37-7.43); ABG PO2 67 MMHG (79-93); ABG TCO2 25.5 MMOL/L (21.0-31.0); ALLENS TEST YES-POS
[2019-11-25 06:58] LABS: INSPIRED O2 40%; PATIENT TEMP 35.6; VENTILATOR YES
[2019-11-25] MEDS ORDERED: POTASSIUM PHOSPHATE INJ 30 MM in NS (IVPB) 250 ML IV NR (07:52)
[2019-11-25] MEDS ORDERED: SODIUM PHOSPHATE INJ 15 MM in D5W 100 ML IVPB 100 ML IV NR (07:53)
--- NOTE | 2019-11-25 08:02 | Occ Therapy Progress Note ---
Therapy Progress Note Pt continues on mechanical ventilation/ sedation. OT to continue to monitor and initiate when medically stable/ able to participate in skilled tx session. TRACI VUONG OTR Nov 25, 2019 08:02
--- NOTE | 2019-11-25 08:12 | Physical Therapy Progress Note ---
Therapy Progress Note Patient remain sedated and intubated. PT to continue to follow patient and initiate treatment when patient is medically stable and able to actively participate with skilled therapy. SHAINA AGUIRRE PT Nov 25, 2019 08:12
[2019-11-25] MEDS: VANCOMYCIN INJECTION 1,000 MG in NS (IVPB) 250 ML IV SCH (08:56)
[2019-11-25] MEDS ORDERED: LORazepam INJ 2 MG/ML (ATIVAN) VIAL IVP ONE ×2 (09:00→09:15)
[2019-11-25] MEDS ORDERED: PANTOPRAZOLE 40 MG (PROTONIX) VIAL IV SCH (09:00)
[2019-11-25] MEDS ORDERED: LORazepam INJ 2 MG/ML (ATIVAN) VIAL IVP NR (09:00)
[2019-11-25] MEDS ORDERED: LEVETIRACETAM 1,000 MG/NS 100 ML IVPB IV SCH ×2 (09:00)
--- NOTE | 2019-11-25 13:49 | NUR ---
CM/SS for discharge planning. CM/SS received call from Primary Care Nurse Ana M informing this sw that they have attempted multiple times to contact the patient's guardian Mathieu Arana ([phone]) without luck. CM/SS looked back in notes to see prior forms of communication. This sw sent a text to the guardian and the guardian contacted Ana M in ICU. They got consent for transfer to . No further needs at this time.
[2019-11-25] MEDS ORDERED: REMDESIVIR INJ (NON-FORMULARY) 100 MG in NS (IVPB) 230 ML IV SCH (15:00)
--- NOTE | 2019-11-25 15:04 | NUR ---
0800 PATIENT TURNED PRONE WITH RT PRESENT 0820 PATIENT HAS SEIZURE LIKE ACTIVITY, 4 MG ATIVAN GIVEN PER ORDERS 0827 TELE ICU NOTIFIED OF CONTINUED SEIZURE LIKE ACTIVITY, 2MG ATIVAN ORDERED BY DR CARVAJAL 0835 DR LEÓN NOTIFIED OF CONTINUED SEIZURE LIKE ACTIVITY, 4 MG ATIVAN ORDERED BY DR LEÓN 0842 PATIENT TURNED SUPINE 0850 SEIZURE LIKE ACTIVITY CEASED.
--- NOTE | 2019-11-25 16:16 | NUR ---
1545 [facility] STAFF ARRIVED, REPORT GIVEN, ASSISTED WITH TRANSFER OF CARE
== END 2019-11-25 16:07 | disposition short-term general hospital (02) | DRG 871 ==
LOC: EDUNIT# 07:45 → ER 07:46 → ICU 09:33
PROVIDERS: ADMIT Internal Medicine; ATTEND Internal Medicine
PROC: 5A1945Z Respiratory Ventilation, 24-96 Consecutive Hours (ICD-10-PCS; principal; 2019-11-24)
PROC: 0BH17EZ Insertion of Endotracheal Airway into Trachea, Via Natural or Artificial Opening (ICD-10-PCS; 2019-11-24)
PROC: XW033E5 Introduction of Remdesivir Anti-infective into Peripheral Vein, Percutaneous Approach, New Technology Group 5 (ICD-10-PCS; 2019-11-24)
PROC: XW13325 Transfusion of Convalescent Plasma (Nonautologous) into Peripheral Vein, Percutaneous Approach, New Technology Group 5 (ICD-10-PCS; 2019-11-24)
DX: A41.89 Other specified sepsis (principal); R65.21 Severe sepsis with septic shock; U07.1 COVID-19; J80 Acute respiratory distress syndrome; J12.89 Other viral pneumonia; N17.9 Acute kidney failure, unspecified; E87.2 Acidosis; F20.0 Paranoid schizophrenia; I12.0 Hypertensive chronic kidney disease with stage 5 chronic kidney disease or end stage renal disease; R79.89 Other specified abnormal findings of blood chemistry; G40.909 Epilepsy, unspecified, not intractable, without status epilepticus; I12.9 Hypertensive chronic kidney disease with stage 1 through stage 4 chronic kidney disease, or unspecified chronic kidney disease; N18.9 Chronic kidney disease, unspecified; F89 Unspecified disorder of psychological development; F79 Unspecified intellectual disabilities; F63.81 Intermittent explosive disorder; R45.6 Violent behavior; R40.2430 Glasgow coma scale score 3-8, unspecified time; L40.9 Psoriasis, unspecified; K59.09 Other constipation; F32.9 Major depressive disorder, single episode, unspecified; K21.9 Gastro-esophageal reflux disease without esophagitis; E78.00 Pure hypercholesterolemia, unspecified; F17.210 Nicotine dependence, cigarettes, uncomplicated
CPT/HCPCS: 31500; 36415; 36569; 51702; 70450; 71045; 71275; 76937; 80048; 80053; 80164; 80306; 80320; 80329; 81000; 82150; 82550; 82553; 82805; 82962; 83605; 83615; 83690; 83735; 83874; 83880; 84100; 84145; 84478; 84484; 85007; 85025; 85027; 85379; 85610; 85652; 85730; 86141; 86850; 86900; 86901; 87040; 87070; 87077; 87081; 87185; 87186; 87205; 87635; 93005; 93041; 94002; 94003; 94640; 94799; 99291

== ENCOUNTER 2022-05-09 18:42 | Emergency (ER) | payer MEDICARE, MEDICAID ==
[~2022-05-09 18:42] MED LIST changes: +ALB0.5V INH; +CLON1TAB PO; +CLOZ100T12 PO; -CLOZ100T7 PO; +DOCU50LI PO; +EZET10TA49 PO; +FAMO40OR5 PO; -FOLI1TAB24 PO; +FOLI1TAB33 PO; +ILOP8TAB2 PO; -LACT10SO PO; +LACT10SO3 PO; +LOPE2CAP14 PO; +LORA5SOL7 PO; +NEOM28.410 TP; +OXYB5SYR PO; -POLY17PO31 PO; +POLY17PO54 PO; -SULF1TAB35 PO; +[UNRECOGNIZED DRUG - CODE] PO; +[UNRECOGNIZED DRUG - CODE] PO
[2022-05-09 18:44] VITALS: BP 141/88
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
[2022-05-09 19:41] LABS: BASOPHILS # (AUTO) 0.1 10^3/uL (0.0-0.1); BASOPHILS % (AUTO) 1 % (0-10); EOSINOPHILS # (AUTO) 0.2 10^3/uL (0.0-0.3); EOSINOPHILS % (AUTO) 2 % (0-10); HEMATOCRIT 42 % (40-54); HEMOGLOBIN 13.8 g/dL (13.3-17.7); LYMPHOCYTES % (AUTO) 35 % (12-44); MEAN CORPUSCULAR HEMOGLOBIN 27 pg (25-34); MEAN CORPUSCULAR HGB CONC 33 g/dL (32-36); MEAN CORPUSCULAR VOLUME 83 fL (80-99); MEAN PLATELET VOLUME 8.9 fL (9.0-12.2); MONOCYTES # (AUTO) 0.9 10^3/uL (0.0-1.0); MONOCYTES % (AUTO) 11 % (0-12); NEUTROPHILS # (AUTO) 4.4 10^3/uL (1.8-7.8); NEUTROPHILS % (AUTO) 50 % (42-75); PLATELET COUNT 220 10^3/uL (130-400); WHITE BLOOD COUNT 8.7 10^3/uL (4.3-11.0)
[2022-05-09 21:13] LABS: ALANINE AMINOTRANSFERASE 48 U/L (0-55); ALKALINE PHOSPHATASE 70 U/L (40-136); BILIRUBIN,TOTAL 0.3 MG/DL (0.1-1.0); BUN/CREATININE RATIO 10; CALCIUM 9.5 MG/DL (8.5-10.1); CARBON DIOXIDE 25 MMOL/L (21-32); CHLORIDE 101 MMOL/L (98-107); CREATININE SERUM 0.72 MG/DL (0.60-1.30); GFR ESTIMATED 109; GLUCOSE 179 MG/DL (70-105); POTASSIUM 3.9 MMOL/L (3.6-5.0); SALICYLATE < 5.0 MG/DL (5.0-20.0); SODIUM 137 MMOL/L (135-145); TOTAL PROTEIN 7.5 GM/DL (6.4-8.2)
[2022-05-09 21:36] LABS: ACETAMINOPHEN < 10 UG/ML (10-30)
[2022-05-09 21:47] LABS: TSH (THYROID ANALYZER) 0.87 UIU/ML (0.35-4.94); VALPROIC ACID 49.6 UG/ML (50.0-100.0)
[2022-05-14] MEDS ORDERED: CLOZ100T12 PO (11:02)
== END 2022-05-09 19:44 | disposition home or self-care (01) ==
LOC: EDUNIT# 18:42 → ER 18:43
DX: F91.1 Conduct disorder, childhood-onset type (principal); F20.9 Schizophrenia, unspecified; G40.909 Epilepsy, unspecified, not intractable, without status epilepticus; E10.9 Type 1 diabetes mellitus without complications; Z79.4 Long term (current) use of insulin
CPT/HCPCS: 80053; 80164; 84443; 85025; 99283; G0480 ×3; 36415; 80320; 80329

== ENCOUNTER 2022-05-13 07:37 | Observation (INO) | payer MEDICARE, MEDICAID ==
[~2022-05-13] VITALS: Ht 177.2 cm; Wt 96.6 kg
[~2022-05-13 07:37] MED LIST changes: -BENZ1TAB6 PO; +BENZ1TAB74 PO
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
[2022-05-13 08:52] LABS: BASOPHILS # (AUTO) 0.1 10^3/uL (0.0-0.1); BASOPHILS % (AUTO) 1 % (0-10); EOSINOPHILS # (AUTO) 0.1 10^3/uL (0.0-0.3); EOSINOPHILS % (AUTO) 1 % (0-10); HEMATOCRIT 43 % (40-54); HEMOGLOBIN 14.2 g/dL (13.3-17.7); LYMPHOCYTES # (AUTO) 2.2 10^3/uL (1.0-4.0); LYMPHOCYTES % (AUTO) 33 % (12-44); MEAN CORPUSCULAR HEMOGLOBIN 27 pg (25-34); MEAN CORPUSCULAR HGB CONC 33 g/dL (32-36); MEAN CORPUSCULAR VOLUME 83 fL (80-99); MEAN PLATELET VOLUME 8.4 fL (9.0-12.2); MONOCYTES # (AUTO) 0.5 10^3/uL (0.0-1.0); MONOCYTES % (AUTO) 7 % (0-12); NEUTROPHILS # (AUTO) 3.6 10^3/uL (1.8-7.8); NEUTROPHILS % (AUTO) 55 % (42-75); PLATELET COUNT 247 10^3/uL (130-400); WHITE BLOOD COUNT 6.6 10^3/uL (4.3-11.0)
[2022-05-13 09:04] LABS: CHLORIDE 101 MMOL/L (98-107); POTASSIUM 4.2 MMOL/L (3.6-5.0); SODIUM 137 MMOL/L (135-145)
[2022-05-13 09:06] LABS: CALCIUM 9.1 MG/DL (8.5-10.1)
[2022-05-13 09:07] LABS: GLUCOSE 174 MG/DL (70-105); TOTAL PROTEIN 7.4 GM/DL (6.4-8.2)
[2022-05-13 09:08] LABS: CARBON DIOXIDE 25 MMOL/L (21-32)
[2022-05-13 09:09] LABS: BILIRUBIN,TOTAL 0.3 MG/DL (0.1-1.0)
[2022-05-13 09:11] LABS: ALKALINE PHOSPHATASE 66 U/L (40-136); CREATININE SERUM 0.71 MG/DL (0.60-1.30); GFR ESTIMATED 110
[2022-05-13 09:12] LABS: BUN/CREATININE RATIO 10
[2022-05-13 09:13] LABS: ACETAMINOPHEN < 10 UG/ML (10-30)
[2022-05-13 09:14] LABS: ALANINE AMINOTRANSFERASE 37 U/L (0-55); SALICYLATE < 5.0 MG/DL (5.0-20.0)
[2022-05-13 09:51] LABS: VALPROIC ACID 85.8 UG/ML (50.0-100.0)
[2022-05-13 10:05] LABS: TSH (THYROID ANALYZER) 0.67 UIU/ML (0.35-4.94)
[2022-05-13 10:06] LABS: BILIRUBIN,URINE NEGATIVE (NEGATIVE); CLARITY,URINE CLEAR; COLOR,URINE YELLOW; GLUCOSE, URINE (UA) NEGATIVE (NEGATIVE); KETONES,URINE NEGATIVE (NEGATIVE); LEUKOCYTE ESTERASE ,URINE NEGATIVE (NEGATIVE); NITRITE,URINE NEGATIVE (NEGATIVE); PH,URINE 7.5 (5-9); PROTEIN,URINE NEGATIVE (NEGATIVE)
[2022-05-13 10:14] LABS: BACTERIA,URINE NEGATIVE /HPF; SQUAMOUS EPITHELIAL CELL,UR RARE /HPF
[2022-05-13 10:22] LABS: BENZODIAZEPINES SCREEN URINE NEGATIVE (NEGATIVE); COCAINE SCREEN URINE NEGATIVE (NEGATIVE)
[2022-05-13 10:23] LABS: AMPHETAMINE SCREEN, URINE NEGATIVE (NEGATIVE); BARBITURATE SCREEN URINE NEGATIVE (NEGATIVE); CANNABINOID SCREEN, URINE NEGATIVE (NEGATIVE); METHADONE STAT NEGATIVE (NEGATIVE); OPIATE SCREEN URINE NEGATIVE (NEGATIVE); OXYCODONE STAT NEGATIVE (NEGATIVE); PROPOXYPHENE STAT NEGATIVE (NEGATIVE); TRICYCLIC ANTIDEPRESSANTS SCRE NEGATIVE (NEGATIVE)
[2022-05-13] MEDS ORDERED: OLANZapine 5 MG ODT (ZyPREXA ZYDIS) PO ONE (11:30)
[2022-05-13] MEDS ORDERED: LORazepam INJ 2 MG/ML (ATIVAN) VIAL IM ONE (12:15)
[2022-05-13] MEDS ORDERED: HALOPERIDOL 5 MG/ML (HALDOL) VIAL IM ONE ×3 (12:15→14:45)
[2022-05-13] MEDS ORDERED: hydrOXYzine (VISTARIL/ATARAX) 25 MG capsule/tablet PO ONE (12:15)
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
[2022-05-13 15:56] VITALS: BP 146/94
[2022-05-13] MEDS ORDERED: polyethylene glycoL POWDER 17 GM (MIRALAX) PACK PO PRN (18:15)
[2022-05-13] MEDS ORDERED: BISACODYL 10 MG SUPP (DULCOLAX) PR PRN (18:15)
[2022-05-13] MEDS ORDERED: CALCIUM CARBONATE 500 MG (TUMS) TAB.CHEW PO PRN (18:15)
[2022-05-13] MEDS ORDERED: ACETAMINOPHEN 325 MG TABLET PO PRN (18:15)
[2022-05-13] MEDS ORDERED: LORazepam INJ 2 MG/ML (ATIVAN) VIAL IM PRN (18:15)
[2022-05-13] MEDS ORDERED: ONDANSETRON 4 MG (ZOFRAN) ORAL DISSOLVE TAB PO PRN (18:15)
[2022-05-13] MEDS ORDERED: HALOPERIDOL 5 MG/ML (HALDOL) VIAL IM PRN (18:15)
[2022-05-13] MEDS ORDERED: diphenhydrAMINE 25 MG TAB (BENADRYL) PO PRN (18:15)
[2022-05-13] MEDS ORDERED: ONDANSETRON 4 MG/2 ML (SDV) Z0FRAN IV PRN (18:15)
[2022-05-13] MEDS ORDERED: ANTACID SUSP 30 ML UDC (MYLANTA) PO PRN (18:15)
[2022-05-13] MEDS ORDERED: MILK OF MAGNESIA 400 MG/5 ML 30 ML UDC PO PRN (18:15)
[2022-05-13] MEDS ORDERED: diphenhydrAMINE 50 MG/ML INJ (BENADRYL) IVP PRN (18:15)
[2022-05-13] MEDS ORDERED: HYDROmorphone 2 MG/ML VIAL (DILAUDID) IM PRN (18:15)
[2022-05-13] MEDS ORDERED: LACTULOSE SYRUP 10GM/15ML (ENULOSE) 30ML UDC PO PRN (18:15)
[2022-05-13] MEDS ORDERED: RT-ALBUTEROL SULF 2.5 MG/3 ML PRE-MIX VIAL INH PRN (18:45)
[2022-05-13 19:16] VITALS: BP 121/85
[2022-05-13] MEDS: DOCUSATE SODIUM 100 MG (COLACE) CAP PO SCH (19:46)
[2022-05-13] MEDS: cloZAPine 100 MG (CLOZARIL) TAB PO SCH (19:47)
[2022-05-13] MEDS: MELATONIN 3 MG TABLET PO PRN (19:47)
[2022-05-13] MEDS: SENNOSIDES 8.6 MG (SENOKOT) TAB PO SCH (19:47)
[2022-05-13] MEDS: HALOPERIDOL 5 MG/ML (HALDOL) VIAL IM SCH (19:48)
[2022-05-13 23:15] VITALS: BP 134/90
[2022-05-14] MEDS: HALOPERIDOL 5 MG/ML (HALDOL) VIAL IM SCH (08:06)
[2022-05-14] MEDS: cloZAPine 100 MG (CLOZARIL) TAB PO SCH ×3 (08:06→20:05)
[2022-05-14] MEDS: SENNOSIDES 8.6 MG (SENOKOT) TAB PO SCH ×2 (08:20→20:04)
[2022-05-14] MEDS: DOCUSATE SODIUM 100 MG (COLACE) CAP PO SCH ×2 (08:20→20:05)
[2022-05-14 08:22] VITALS: BP 155/81
--- NOTE | 2022-05-14 08:52 | Diagnostic Imaging Report ---
Clinical indication: Patient with aggressiveness and altered mental status. Exam: Axial CT scan of the brain without IV contrast with coronal and sagittal reformatted images. Auto Exposure Controls were utilized during the CT exam to meet ALARA standards for radiation dose reduction. Comparison: Head CT without contrast dated 10/31/2015. Findings: There is no evidence of acute cerebral infarct, intracranial hemorrhage, or gross mass effect. There is no significant change to the brain parenchymal volume loss. There is normal olmos-white matter distinction. There is no significant midline shift or herniation. There is no evidence of hydrocephalus. The basal cisterns are unremarkable. The skull, extracranial soft tissue, and orbits are unremarkable. There is a small mucus retention cyst involving the right maxillary sinus. There is small amount of fluid involving left mastoid air cells. Temporal bones show no significant abnormality. IMPRESSION: There is no interval CT evidence of acute intracranial process. Dictated by: Dictated on workstation # [id number]
[2022-05-14 09:55] VITALS: BP 173/83
[2022-05-14 10:12] LABS: BASOPHILS % (AUTO) 1 % (0-10); EOSINOPHILS % (AUTO) 1 % (0-10); HEMATOCRIT 44 % (40-54); HEMOGLOBIN 14.6 g/dL (13.3-17.7); LYMPHOCYTES # (AUTO) 2.4 10^3/uL (1.0-4.0); LYMPHOCYTES % (AUTO) 29 % (12-44); MEAN CORPUSCULAR HEMOGLOBIN 27 pg (25-34); MEAN CORPUSCULAR HGB CONC 33 g/dL (32-36); MEAN CORPUSCULAR VOLUME 81 fL (80-99); MEAN PLATELET VOLUME 8.2 fL (9.0-12.2); MONOCYTES # (AUTO) 0.6 10^3/uL (0.0-1.0); MONOCYTES % (AUTO) 8 % (0-12); NEUTROPHILS # (AUTO) 5.2 10^3/uL (1.8-7.8); NEUTROPHILS % (AUTO) 62 % (42-75); PLATELET COUNT 257 10^3/uL (130-400); WHITE BLOOD COUNT 8.3 10^3/uL (4.3-11.0)
[2022-05-14 10:27] LABS: ALBUMIN 4.3 GM/DL (3.2-4.5); POTASSIUM 3.8 MMOL/L (3.6-5.0)
[2022-05-14 10:28] LABS: CALCIUM 9.5 MG/DL (8.5-10.1)
[2022-05-14 10:29] LABS: TOTAL PROTEIN 7.9 GM/DL (6.4-8.2)
[2022-05-14 10:31] LABS: BILIRUBIN,TOTAL 0.4 MG/DL (0.1-1.0)
[2022-05-14 10:33] LABS: CREATININE SERUM 0.75 MG/DL (0.60-1.30)
[2022-05-14] MEDS ORDERED: MIRT-68 PO (10:50)
[2022-05-14] MEDS ORDERED: PHEN177S6 MM (10:50)
[2022-05-14] MEDS ORDERED: DIPH25TA65 PO (10:50)
[2022-05-14] MEDS ORDERED: KETO120S13 TP (10:50)
[2022-05-14] MEDS ORDERED: OXYB5TAB13 PO (10:50)
[2022-05-14] MEDS ORDERED: HALO10TA PO (10:50)
[2022-05-14] MEDS ORDERED: HYDR50CA3 PO ×2 (10:50)
[2022-05-14] MEDS ORDERED: HALO2TAB PO (10:50)
[2022-05-14] MEDS ORDERED: MIRT-69 PO (10:50)
[2022-05-14] MEDS ORDERED: IBUP200C11 PO (10:50)
[2022-05-14] MEDS ORDERED: PHEN-832 PO (10:50)
[2022-05-14] MEDS ORDERED: HALO5TAB PO (10:50)
[2022-05-14] MEDS ORDERED: [UNRECOGNIZED DRUG - CODE] PO (10:50)
[2022-05-14] MEDS ORDERED: METH49ST TP (10:50)
[2022-05-14] MEDS ORDERED: MULT-137 PO (10:50)
[2022-05-14] MEDS ORDERED: LEVE100S16 PO (10:50)
[2022-05-14] MEDS ORDERED: HALO100A4 IM (10:50)
[2022-05-14] MEDS ORDERED: OLAN15TA35 PO (10:56)
[2022-05-14] MEDS ORDERED: OLAN20TA34 (10:56)
[2022-05-14] MEDS ORDERED: CLOZ100T12 PO (11:02)
--- NOTE | 2022-05-14 11:03 | Discharge Summary ---
Diagnosis/Chief Complaint Date of Admission May 13, 2022 at 14:40 Date of Discharge Discharge Date: May 14, 2022 Discharge Diagnosis Agitation Aggressive behavior hx of schizophrenia Intellectual disability hx of Developmental Delay -Will need eval by psych -increase antipsychotics, benzos for aggressive behavior -plan for [facility] tomorrow. Epigastric pain -w/o acute signs, rebound tenderness -w/o hematemesis, debilitating pain -tolerating food/drink -BM this AM -monitoring for now Diet: full dvt ppx: NI GI ppx: protonix Discharge Summary Discharge Physical Examination Allergies: Coded Allergies: fluoxetine (Verified Allergy, Unknown, 03/05/17) Vitals & I&Os Vital Signs Date Time Temp Pulse Resp B/P (MAP) Pulse Ox O2 Delivery O2 Flow Rate FiO2 05/14/22 11:17 36.5 128 22 145/93 (110) 93 Room Air 05/13/22 19:53 21 Hospital Course Labs (last 24 hrs) Laboratory Tests 05/13/22 08:24: Influenza Type A (RT-PCR) Not Detected, Influenza Type B (RT-PCR) Not Detected, SARS-CoV-2 RNA (RT-PCR) Not Detected 05/13/22 08:45: White Blood Count 6.6, Red Blood Count 5.18, Hemoglobin 14.2, Hematocrit 43, Mean Corpuscular Volume 83, Mean Corpuscular Hemoglobin 27, Mean Corpuscular Hemoglobin Concent 33, Red Cell Distribution Width 15.0H, Platelet Count 247, Mean Platelet Volume 8.4L, Immature Granulocyte % (Auto) 2, Neutrophils (%) (Auto) 55, Lymphocytes (%) (Auto) 33, Monocytes (%) (Auto) 7, Eosinophils (%) (Auto) 1, Basophils (%) (Auto) 1, Neutrophils # (Auto) 3.6, Lymphocytes # (Auto) 2.2, Monocytes # (Auto) 0.5, Eosinophils # (Auto) 0.1, Basophils # (Auto) 0.1, Immature Granulocyte # (Auto) 0.1, Erythrocyte Sedimentation Rate 12, Sodium Level 137, Potassium Level 4.2, Chloride Level 101, Carbon Dioxide Level 25, Anion Gap 11, Blood Urea Nitrogen 7, Creatinine 0.71, Estimat Glomerular Filtration Rate 110, BUN/Creatinine Ratio 10, Glucose Level 174H, Calcium Level 9.1, Corrected Calcium 9.1, Total Bilirubin 0.3, Aspartate Amino Transf (AST/SGOT) 26, Alanine Aminotransferase (ALT/SGPT) 37, Alkaline Phosphatase 66, C-Reactive Protein High Sensitivity 2.48H, Total Protein 7.4, Albumin 4.0, TSH [place] Testing 0.67, Salicylates Level < 5.0L, Acetaminophen Level < 10L, Valproic Acid (Depakene) Level 85.8, Serum Alcohol < 10 05/13/22 09:57: Urine Color YELLOW, Urine Clarity CLEAR, Urine pH 7.5, Urine Specific [place] 1.010L, Urine Protein NEGATIVE, Urine Glucose (UA) NEGATIVE, Urine Ketones NEGATIVE, Urine Nitrite NEGATIVE, Urine Bilirubin NEGATIVE, Urine Urobilinogen 0.2, Urine Leukocyte Esterase NEGATIVE, Urine RBC (Auto) NEGATIVE, Urine RBC NONE, Urine WBC NONE, Urine Squamous Epithelial Cells RARE, Urine Crystals NONE, Urine Bacteria NEGATIVE, Urine Casts NONE, Urine Mucus NEGATIVE, Urine Culture Indicated NO, Urine Opiates Screen NEGATIVE, Urine Oxycodone Screen NEGATIVE, Urine Methadone Screen NEGATIVE, Urine Propoxyphene Screen NEGATIVE, Urine Barbiturates Screen NEGATIVE, Ur Tricyclic Antidepressants Screen NEGATIVE, Urine Phencyclidine Screen NEGATIVE, Urine Amphetamines Screen NEGATIVE, Urine Methamphetamines Screen NEGATIVE, Urine Benzodiazepines Screen NEGATIVE, Urine Cocaine Screen NEGATIVE, Urine Cannabinoids Screen NEGATIVE 05/14/22 10:00: White Blood Count 8.3, Red Blood Count 5.50, Hemoglobin 14.6, Hematocrit 44, Mean Corpuscular Volume 81, Mean Corpuscular Hemoglobin 27, Mean Corpuscular Hemoglobin Concent 33, Red Cell Distribution Width 14.6H, Platelet Count 257, Mean Platelet Volume 8.2L, Immature Granulocyte % (Auto) 1, Neutrophils (%) (A uto) 62, Lymphocytes (%) (Auto) 29, Monocytes (%) (Auto) 8, Eosinophils (%) (Auto) 1, Basophils (%) (Auto) 1, Neutrophils # (Auto) 5.2, Lymphocytes # (Auto) 2.4, Monocytes # (Auto) 0.6, Eosinophils # (Auto) 0.0, Basophils # (Auto) 0.0, Immature Granulocyte # (Auto) 0.1, Sodium Level 138, Potassium Level 3.8, Chloride Level 100, Carbon Dioxide Level 24, Anion Gap 14, Blood Urea Nitrogen 8, Creatinine 0.75, Estimat Glomerular Filtration Rate 108, BUN/Creatinine Ratio 11, Glucose Level 195H, Calcium Level 9.5, Corrected Calcium 9.3, Total Bilirubin 0.4, Aspartate Amino Transf (AST/SGOT) 38H, Alanine Aminotransferase (ALT/SGPT) 38, Alkaline Phosphatase 74, Total Protein 7.9, Albumin 4.3 Pending Labs Laboratory Tests 05/13/22 08:24: Influenza Type A (RT-PCR) Not Detected, Influenza Type B (RT-PCR) Not Detected, SARS-CoV-2 RNA (RT-PCR) Not Detected 05/13/22 08:45: White Blood Count 6.6, Red Blood Count 5.18, Hemoglobin 14.2, Hematocrit 43, Mean Corpuscular Volume 83, Mean Corpuscular Hemoglobin 27, Mean Corpuscular Hemoglobin Concent 33, Red Cell Distribution Width 15.0, Platelet Count 247, Mean Platelet Volume 8.4, Immature Granulocyte % (Auto) 2, Neutrophils (%) (Auto) 55, Lymphocytes (%) (Auto) 33, Monocytes (%) (Auto) 7, Eosinophils (%) (Auto) 1, Basophils (%) (Auto) 1, Neutrophils # (Auto) 3.6, Lymphocytes # (Auto) 2.2, Monocytes # (Auto) 0.5, Eosinophils # (Auto) 0.1, Basophils # (Auto) 0.1, Immature Granulocyte # (Auto) 0.1, Erythrocyte Sedimentation Rate 12, Sodium Level 137, Potassium Level 4.2, Chloride Level 101, Carbon Dioxide Level 25, Anion Gap 11, Blood Urea Nitrogen 7, Creatinine 0.71, Estimat Glomerular Filtration Rate 110, BUN/Creatinine Ratio 10, Glucose Level 174, Calcium Level 9.1, Corrected Calcium 9.1, Total Bilirubin 0.3, Aspartate Amino Transf (AST/SGOT) 26, Alanine Aminotransferase (ALT/SGPT) 37, Alkaline Phosphatase 66, C-Reactive Protein High Sensitivity 2.48, Total Protein 7.4, Albumin 4.0, TSH [place] Testing 0.67, Salicylates Level < 5.0, Acetaminophen Level < 10, Valproic Acid (Depakene) Level 85.8, Serum Alcohol < 10 05/13/22 09:57: Urine Color YELLOW, Urine Clarity CLEAR, Urine pH 7.5, Urine Specific [place] 1.010, Urine Protein NEGATIVE, Urine Glucose (UA) NEGATIVE, Urine Ketones NEGATIVE, Urine Nitrite NEGATIVE, Urine Bilirubin NEGATIVE, Urine Urobilinogen 0.2, Urine Leukocyte Esterase NEGATIVE, Urine RBC (Auto) NEGATIVE, Urine RBC NONE, Urine WBC NONE, Urine Squamous Epithelial Cells RARE, Urine Crystals NONE, Urine Bacteria NEGATIVE, Urine Casts NONE, Urine Mucus NEGATIVE, Urine Culture Indicated NO, Urine Opiates Screen NEGATIVE, Urine Oxycodone Screen NEGATIVE, Urine Methadone Screen NEGATIVE, Urine Propoxyphene Screen NEGATIVE, Urine Barbiturates Screen NEGATIVE, Ur Tricyclic Antidepressants Screen NEGATIVE, Urine Phencyclidine Screen NEGATIVE, Urine Amphetamines Screen NEGATIVE, Urine Methamphetamines Screen NEGATIVE, Urine Benzodiazepines Screen NEGATIVE, Urine Cocaine Screen NEGATIVE, Urine Cannabinoids Screen NEGATIVE 05/14/22 10:00: White Blood Count 8.3, Red Blood Count 5.50, Hemoglobin 14.6, Hematocrit 44, Mean Corpuscular Volume 81, Mean Corpuscular Hemoglobin 27, Mean Corpuscular Hem oglobin Concent 33, Red Cell Distribution Width 14.6, Platelet Count 257, Mean Platelet Volume 8.2, Immature Granulocyte % (Auto) 1, Neutrophils (%) (Auto) 62, Lymphocytes (%) (Auto) 29, Monocytes (%) (Auto) 8, Eosinophils (%) (Auto) 1, Basophils (%) (Auto) 1, Neutrophils # (Auto) 5.2, Lymphocytes # (Auto) 2.4, Monocytes # (Auto) 0.6, Eosinophils # (Auto) 0.0, Basophils # (Auto) 0.0, Immature Granulocyte # (Auto) 0.1, Sodium Level 138, Potassium Level 3.8, Chloride Level 100, Carbon Dioxide Level 24, Anion Gap 14, Blood Urea Nitrogen 8, Creatinine 0.75, Estimat Glomerular Filtration Rate 108, BUN/Creatinine Ratio 11, Glucose Level 195, Calcium Level 9.5, Corrected Calcium 9.3, Total Bilirubin 0.4, Aspartate Amino Transf (AST/SGOT) 38, Alanine Aminotransferase (ALT/SGPT) 38, Alkaline Phosphatase 74, Total Protein 7.9, Albumin 4.3, Vitamin B12 Level [Pending], Folate [Pending] Discharge Home Medications: Active Scripts Active Clozapine 100 Mg Tablet 100 Mg PO BID Reported Olanzapine 15 Mg Tablet 15 Mg PO BID Haloperidol 5 Mg Tablet 5 Mg PO DAILY PRN Hydroxyzine Pamoate 50 Mg Capsule 50 Mg PO Q8H PRN Mirtazapine 15 Mg Tablet 15 Mg PO HS Ketoconazole 2 % Shampoo 5-10 Ml TP TID PRN Haloperidol 10 Mg Tablet 5 Mg PO Q8H PRN GIVE FOR AGITATION SHOWN BY AGGRESSIVE BEHAVIORS LIKE THREATENING GESTURES OR AGGRESSION TO PROPERTY TAKES OF A 10MG TAB Throat [place] (Phenol) 1.4 % [place] 1 Sprays MM EVERY 2 HOURS PRN Benadryl Allergy (Diphenhydramine HCl) 25 Mg Tablet 25 Mg PO Q4H PRN Advil (Ibuprofen) 200 Mg Capsule 200-400 Mg PO Q4 -6H PRN Vitamin E-Oil (Vitamin E (Dl,Tocopheryl Acet)) 45 Mg/0.25 Ml (100 Unit/0.25 Ml) Drops 10 Drops PO DAILY Multivitamins with Iron 1 Each Tablet 1 Each PO DAILY Mirtazapine 30 Mg Tablet 30 Mg PO HS Oxybutynin Chloride 5 Mg Tablet 5 Mg PO 0800,1999 Keppra (Levetiracetam) 100 Mg/Ml Solution 10 Ml PO 0900,2099 Hydroxyzine Pamoate 50 Mg Capsule 50 Mg PO 0800,1400,1999 Haloperidol 2 Mg Tablet 2 Mg PO 0800,1400,1999 Haloperidol Decanoate 100 Mg/Ml Ampul 100 Mg IM MONTHLY Sudafed PE (Phenylephrine HCl) 10 Mg Tablet 10 Mg PO Q4H PRN MDD 60MG Icy Hot Stick (Methyl Salicylate/Menthol) 30 %-10 % Stick...g. 1 Applic TP QID PRN ALLOW A MINIMUM OF 2-3 HOURS BETWEEN APPLICATIONS Albuterol Sulfate 2.5 Mg/0.5 Ml Vial.neb 2.5 Mg INH Q4H Anti-Diarrheal (Loperamide HCl) 2 Mg Capsule 2-4 Mg PO UD PRN MDD 16MG FOLLOW PACKAGE DIRECTIONS Triple Antibiotic Plus Oint (Neomycn/Baci Zn/Pmyx Bs/Pramox) 28.4 Gm Oint...g. 1 Applic TP TID PRN Famotidine 40 Mg/5 Ml (8 Mg/Ml) Oral.susp 2.5 Ml PO 0800,2000 Ezetimibe 10 Mg Tablet 10 Mg PO 1999 Clonazepam 1 Mg Tablet 1 Mg PO 0800,2000 Tylenol Extra Strength (Acetaminophen) 500 Mg Tablet 1,000 Mg PO Q6H PRN MDD 3000MG Tinactin (Tolnaftate) 1 % Aero.powd 1 Applic TP BID PRN Robitussin Cough-Chest Dm Liq (Guaifenesin/Dextromethorphan) 100 Mg-5 Mg/5 Ml Liquid 20 Ml PO Q4H PRN MDD 120ML Refresh Optive Advanced Drops (Carboxymethyl/Glycerin/Poly80) 0.5 %-1 %-0.5 % Drops 1-2 Drop OU UD PRN Milk of Magnesia (Magnesium Hydroxide) 400 Mg/5 Ml Oral.susp 30 Ml PO DAILY PRN Maalox Advanced Suspension (Mag Hydrox/Aluminum Hyd/Simeth) 200 Mg-200 Mg-20 Mg/5 Ml Oral.susp 10-20 Ml PO QID PRN Debrox (Carbamide Peroxide) 6.5 % Drops 5-10 Drops EACH EAR BID PRN PER PACKAGE DIRECTIONS Cough Drops (Eucalyptus/Menthol) 1 Each Lozenge 1 Mariam MM 5XD PRN Cortaid (Hydrocortisone) 1 % Cream..g. 1 Applic TP QID PRN Trintellix (Vortioxetine Hydrobromide) 20 Mg Tablet 20 Mg PO DAILY Divalproex Sodium 125 Mg Cap.sprink 1,875 Mg PO 1999 TAKES 15 (125MG) CAPSULES Folic Acid 1 Mg Tablet 0.5 Mg PO DAILY TAKES OF A 1MG TAB Metoprolol Succinate 25 Mg Tab.er.24h 25 Mg PO DAILY Instructions to patient/family Please see electronic discharge instructions given to patient. Diagnosis/Problems Diagnosis/Problems (1) Psychosis (2) Aggressive behavior Status: Acute (3) Intellectual developmental disorder, severe ELIZA HER DO May 14, 2022 11:03
[2022-05-14 11:17] VITALS: BP 145/93
[2022-05-14] MEDS ORDERED: METHYL SALICYLATE TP PRN (11:45)
[2022-05-14] MEDS ORDERED: NON-FORMULARY MEDICATION 1 EA EA (Mag Hydrox/Aluminum Hyd/Simeth (Maalox Advanced Suspensi PO PRN (11:45)
[2022-05-14] MEDS ORDERED: TOLNAFTATE TP PRN (11:45)
[2022-05-14] MEDS ORDERED: NON-FORMULARY MEDICATION 1 EA EA (Ibuprofen (Advil) 400 MG) PO PRN (11:45)
[2022-05-14] MEDS ORDERED: MILK OF MAGNESIA 400 MG/5 ML 30 ML UDC PO PRN (11:45)
[2022-05-14] MEDS ORDERED: HYDROCORTISONE 1% CREAM 30 GM TUBE TP PRN (11:45)
[2022-05-14] MEDS ORDERED: PHENYLEPHRINE HCL 10 MG PO PRN (11:45)
[2022-05-14] MEDS ORDERED: NON-FORMULARY MEDICATION 1 EA EA (Hydroxyzine Pamoate 50 MG) PO PRN (11:45)
[2022-05-14] MEDS ORDERED: CARBAM PEROXIDE 6.5% 15 ML DROPS (DEBROX) EACH EAR PRN (11:45)
[2022-05-14] MEDS ORDERED: CHLORASEPTIC SPRAY 177 ML LIQUID MM PRN (11:45)
[2022-05-14] MEDS ORDERED: MENTHOL TP PRN (11:45)
[2022-05-14] MEDS ORDERED: EUCALYPTUS MM PRN (11:45)
[2022-05-14] MEDS ORDERED: NON-FORMULARY MEDICATION 1 EA EA (Haloperidol 5 MG) PO PRN (11:45)
[2022-05-14] MEDS ORDERED: KETOCONAZOLE TP PRN (11:45)
[2022-05-14] MEDS ORDERED: HALOPERIDOL 5 MG (HALDOL) TAB PO PRN ×2 (11:45→12:15)
[2022-05-14] MEDS ORDERED: diphenhydrAMINE 25 MG TAB (BENADRYL) PO PRN (11:45)
[2022-05-14] MEDS ORDERED: ACETAMINOPHEN 500 MG TAB (TYLENOL) PO PRN (11:45)
[2022-05-14] MEDS ORDERED: LOPERAMIDE 2 MG (IMODIUM) TABLET PO PRN (11:45)
[2022-05-14] MEDS ORDERED: NON-FORMULARY MEDICATION 1 EA EA (Carboxymethyl/Glycerin/Poly80 (Refresh Optive Advanced D OU PRN (11:45)
[2022-05-14] MEDS ORDERED: MENTHOL MM PRN (11:45)
[2022-05-14] MEDS ORDERED: [UNRECOGNIZED DRUG - MIXTURE] TP PRN (11:45)
--- NOTE | 2022-05-14 11:54 | Progress Note ---
SIMONA STAPLETON 05/14/22 1154: Subjective Date Seen by a Provider: May 14, 2022 Time Seen by a Provider: 09:30 Subjective/Events-last exam Milad is doing well today, no agitation or aggression reported by the nurse. He is difficult to redirect and does not like to remain in his room. He often wa nders the halls and will hug nearly any provider he sees. During rounds Milad was pleasant and shook each of the med students' hands. He gave one a hug and tried to kiss him on the cheek. Milad denies continued abdominal pain and says it resolved last night. He continually asks to go home, however, after discussion with Macario, his senior care invoice clerk, they are unable/unwilling to take him back. Review of Systems HEENT: No Head Aches Pulmonary: No Cough Cardiovascular: No: Chest Pain Gastrointestinal: No: Nausea, Vomiting, Abdominal Pain Objective Exam Last Set of Vital Signs Vital Signs Date Time Temp Pulse Resp B/P (MAP) Pulse Ox O2 Delivery O2 Flow Rate FiO2 05/14/22 11:17 36.5 128 22 145/93 (110) 93 Room Air 05/13/22 19:53 21 Capillary Refill : I&O Intake and Output 05/14/22 00:00 Intake Total 960 ml Balance 960 ml Intake Oral 960 ml # Voids 4 Daily Weight Change No General: Alert, Oriented X3, Cooperative, No Acute Distress HEENT: Atraumatic, PERRLA, EOMI, Mucous Memb Moist/[place] Neck: Supple, No JVD Lungs: Clear to Auscultation, Normal Air Movement Heart: Regular Rate, Normal S1, Normal S2 Abdomen: Soft, No Tenderness Extremities: Normal Pulses Results Lab Laboratory Tests 05/14/22 10:00: White Blood Count 8.3, Red Blood Count 5.50, Hemoglobin 14.6, Hematocrit 44, Mean Corpuscular Volume 81, Mean Corpuscular Hemoglobin 27, Mean Corpuscular Hemoglobin Concent 33, Red Cell Distribution Width 14.6H, Platelet Count 257, Mean Platelet Volume 8.2L, Immature Granulocyte % (Auto) 1, Neutrophils (%) (Auto) 62, Lymphocytes (%) (Auto) 29, Monocytes (%) (Auto) 8, Eosinophils (%) (Auto) 1, Basophils (%) (Auto) 1, Neutrophils # (Auto) 5.2, Lymphocytes # (Auto) 2.4, Monocytes # (Auto) 0.6, Eosinophils # (Auto) 0.0, Basophils # (Auto) 0.0, Immature Granulocyte # (Auto) 0.1, Sodium Level 138, Potassium Level 3.8, Chl oride Level 100, Carbon Dioxide Level 24, Anion Gap 14, Blood Urea Nitrogen 8, Creatinine 0.75, Estimat Glomerular Filtration Rate 108, BUN/Creatinine Ratio 11, Glucose Level 195H, Calcium Level 9.5, Corrected Calcium 9.3, Total Biliru bin 0.4, Aspartate Amino Transf (AST/SGOT) 38H, Alanine Aminotransferase (ALT/SGPT) 38, Alkaline Phosphatase 74, Total Protein 7.9, Albumin 4.3 Assessment/Plan Assessment/Plan Assess & Plan/Chief Complaint Agitation Aggressive behavior hx of schizophrenia Intellectual disability hx of Developmental Delay -on clozapine now, WBC count wnl -haldol IM for agitation/aggression -will need new living arrangements, social work is facilitating this -CTH negative for Acute processes Epigastric pain -w/o acute signs, rebound tenderness -w/o hematemesis, debilitating pain -tolerating food/drink -denies continued pain, resolved -monitoring Diet: full dvt ppx: NI, ambulate GI ppx: protonix Dispo: holding until placement is found. Clinical Quality Measures Admission Status Admission Dx Agitation Aggressive behavior hx of schizophrenia Intellectual disability hx of Developmental Delay -Will need eval by psych -increase antipsychotics, benzos for aggressive behavior -plan for [facility] tomorrow. Epigastric pain -w/o acute signs, rebound tenderness -w/o hematemesis, debilitating pain -tolerating food/drink -BM this AM -monitoring for now Diet: full dvt ppx: NI GI ppx: protonix Dispo: Will need psych evaluation, med adjustments. Hold for now, plan for CT tomorrow. KHUSHBU HER DO 05/14/222049: Supervisory-Addendum Brief Verification & Attestation Participated in pt care: history, MDM, physical Personally performed: exam, history, MDM, supervision of care Care discussed with: Medical Student Procedures: n/a Results interpretation: Verified all documentation Verification and Attestation of Medical Student E/M Service A medical student performed and documented this service in my presence. I reviewed and verified all information documented by the medical student and made modifications to such information, when appropriate. I personally performed the physical exam and medical decision making. Khushbu Her, May 14, 2022,20:50 SIMONA STAPLETON May 14, 2022 11:54 KHUSHBU HER DO May 14, 2022 20:50
[2022-05-14] MEDS ORDERED: IBUPROFEN TABLET 200 MG TAB PO PRN (12:15)
[2022-05-14] MEDS ORDERED: BENZOCAINE LOZENGES 1 EACH LOZENGE PO PRN (12:15)
[2022-05-14] MEDS ORDERED: guaiFENesin/DM (ROBITUSSIN DM) 10 ML UDC PO PRN (12:15)
[2022-05-14] MEDS ORDERED: ANTACID SUSP 30 ML UDC (MYLANTA) PO PRN (12:30)
[2022-05-14] MEDS ORDERED: NEO/POLY/BAC (NEOSPORIN) OINT 15 GM TUBE TOP PRN (12:30)
[2022-05-14] MEDS ORDERED: METHYL SALICYLATE/MENTHOL (BENGAY, MUSCLE RUB) 3 OZ TUBE TP PRN (12:30)
[2022-05-14] MEDS ORDERED: hydrOXYzine (VISTARIL/ATARAX) 25 MG capsule/tablet PO PRN (13:00)
[2022-05-14] MEDS ORDERED: ARTIFICAL TEARS 0.4 ML UNIT DOSE (REFRESH PLUS) OU PRN (13:00)
[2022-05-14] MEDS: HALOPERIDOL 5 MG (HALDOL) TAB PO SCH ×3 (13:16→20:04)
[2022-05-14] MEDS: hydrOXYzine (VISTARIL/ATARAX) 25 MG capsule/tablet PO SCH ×2 (13:16→20:04)
[2022-05-14] MEDS ORDERED: NON-FORMULARY MEDICATION 1 EA EA (Hydroxyzine Pamoate 50 MG) PO SCH (14:00)
[2022-05-14] MEDS: RT-ALBUTEROL SULF 2.5 MG/3 ML PRE-MIX VIAL INH SCH ×3 (15:45→22:55)
[2022-05-14 15:56] VITALS: BP 114/80
[2022-05-14 19:39] VITALS: BP 133/92
[2022-05-14] MEDS ORDERED: DIVALPROX SPRINKLE 125 MG (DEPAKOTE) CAP PO SCH (20:00)
[2022-05-14] MEDS ORDERED: eZETimibe 10 MG (ZETIA) TABLET PO SCH (20:00)
[2022-05-14] MEDS: OLANZapine 5 MG ODT (ZyPREXA ZYDIS) PO SCH (20:05)
[2022-05-14] MEDS ORDERED: NON-FORMULARY MEDICATION 1 EA EA (Mirtazapine 30 MG) PO SCH (21:00)
[2022-05-14] MEDS ORDERED: DIVALPROEX EXT RELEASE 250 MG (DEPAKOTE ER) TAB PO SCH (21:00)
[2022-05-14] MEDS ORDERED: MIRTAZAPINE 15 MG (REMERON) TAB PO SCH (21:00)
[2022-05-14] MEDS ORDERED: NON-FORMULARY MEDICATION 1 EA EA (Mirtazapine 15 MG) PO SCH (21:00)
[2022-05-14] MEDS ORDERED: NON-FORMULARY MEDICATION 1 EA EA (Olanzapine 15 MG) PO SCH (21:00)
[2022-05-14] MEDS: clonazePAM 1 MG (KlonoPIN) TAB PO SCH (21:49)
[2022-05-14] MEDS: MELATONIN 3 MG TABLET PO PRN (21:49)
[2022-05-14] MEDS: OXYBUTYNIN (DITROPAN) 5 MG TAB PO SCH (21:49)
[2022-05-14] MEDS: FAMOTIDINE 40 MG/5 ML ORAL SUSP 50 ML PO SCH (21:49)
[2022-05-14 23:17] VITALS: BP 131/92
[2022-05-15] MEDS: RT-ALBUTEROL SULF 2.5 MG/3 ML PRE-MIX VIAL INH SCH ×3 (02:31→11:00)
[2022-05-15 05:45] LABS: BASOPHILS # (AUTO) 0.1 10^3/uL (0.0-0.1); BASOPHILS % (AUTO) 1 % (0-10); EOSINOPHILS # (AUTO) 0.1 10^3/uL (0.0-0.3); EOSINOPHILS % (AUTO) 1 % (0-10); HEMATOCRIT 44 % (40-54); HEMOGLOBIN 14.8 g/dL (13.3-17.7); LYMPHOCYTES # (AUTO) 3.2 10^3/uL (1.0-4.0); LYMPHOCYTES % (AUTO) 40 % (12-44); MEAN CORPUSCULAR HEMOGLOBIN 27 pg (25-34); MEAN CORPUSCULAR HGB CONC 34 g/dL (32-36); MEAN CORPUSCULAR VOLUME 81 fL (80-99); MEAN PLATELET VOLUME 8.3 fL (9.0-12.2); MONOCYTES # (AUTO) 0.6 10^3/uL (0.0-1.0); MONOCYTES % (AUTO) 8 % (0-12); NEUTROPHILS % (AUTO) 49 % (42-75); PLATELET COUNT 263 10^3/uL (130-400)
[2022-05-15 05:53] LABS: ALBUMIN 4.1 GM/DL (3.2-4.5); POTASSIUM 4.5 MMOL/L (3.6-5.0)
[2022-05-15 05:54] LABS: CALCIUM 9.3 MG/DL (8.5-10.1)
[2022-05-15 05:55] LABS: TOTAL PROTEIN 7.6 GM/DL (6.4-8.2)
[2022-05-15 05:57] LABS: BILIRUBIN,TOTAL 0.4 MG/DL (0.1-1.0)
[2022-05-15 05:59] LABS: CREATININE SERUM 0.76 MG/DL (0.60-1.30)
[2022-05-15] MEDS ORDERED: MULTIVIT W/MINERALS TAB (THERAGRAN M) PO SCH (07:00)
[2022-05-15 07:24] VITALS: BP 142/92
[2022-05-15] MEDS: clonazePAM 1 MG (KlonoPIN) TAB PO SCH (08:15)
[2022-05-15] MEDS: SENNOSIDES 8.6 MG (SENOKOT) TAB PO SCH (08:16)
[2022-05-15] MEDS: HALOPERIDOL 5 MG (HALDOL) TAB PO SCH ×2 (08:16→13:21)
[2022-05-15] MEDS: hydrOXYzine (VISTARIL/ATARAX) 25 MG capsule/tablet PO SCH ×2 (08:16→13:21)
[2022-05-15] MEDS: OLANZapine 5 MG ODT (ZyPREXA ZYDIS) PO SCH (08:16)
[2022-05-15] MEDS: DOCUSATE SODIUM 100 MG (COLACE) CAP PO SCH (08:16)
[2022-05-15] MEDS: OXYBUTYNIN (DITROPAN) 5 MG TAB PO SCH (08:16)
[2022-05-15] MEDS: FAMOTIDINE 40 MG/5 ML ORAL SUSP 50 ML PO SCH (08:17)
[2022-05-15] MEDS: cloZAPine 100 MG (CLOZARIL) TAB PO SCH ×2 (08:17→13:21)
[2022-05-15] MEDS ORDERED: [UNRECOGNIZED DRUG - OTHER] PO SCH (09:00)
[2022-05-15] MEDS ORDERED: NON-FORMULARY MEDICATION 1 EA EA (Vortioxetine Hydrobromide (Trintellix) 20 MG) PO SCH (09:00)
[2022-05-15] MEDS ORDERED: MULTIVITAMINS WITH IRON PO SCH (09:00)
[2022-05-15] MEDS ORDERED: FOLIC ACID 1 MG TAB PO SCH (09:00)
[2022-05-15] MEDS ORDERED: VITAMIN E PO SCH (09:00)
--- NOTE | 2022-05-15 10:38 | Progress Note ---
Subjective Date Seen by a Provider: May 15, 2022 Time Seen by a Provider: 11:00 Subjective/Events-last exam Milad is doing well this am, approaches in hallway to [facility]. Per nurse he is a 1:1 patient for frequent redirection, but has not had any aggressive or agitated behavior. His last administration of IM haldol was 05/13/22 at 18:15. He continues to ask if he is going home today and asks for Michelle, his care worker. Hospital Course: Milad Duran is a 52 yo M w/ hx of Intellectual disability, developmental delay, and schizoaffective disorder who presented on 05/13 after having some aggressive behavior at his [facility] for ~2 weeks. He was started on clozapine and baseline blood counts were obtained. He has tolerated the medication well and has not had any aggressive behavior since admission. His last dose of IM haldol was given on the day of his admission, 05/13, at 18:15. Review of Systems HEENT: No Head Aches Pulmonary: No Cough Gastrointestinal: No: Abdominal Pain Objective Exam Last Set of Vital Signs Vital Signs Date Time Temp Pulse Resp B/P (MAP) Pulse Ox O2 Delivery O2 Flow Rate FiO2 05/15/22 07:32 95 Room Air 0.00 05/15/22 07:24 37.0 118 18 142/92 (109) 05/13/22 19:53 21 Capillary Refill : I&O Intake and Output 05/15/22 00:00 Intake Total 2420 ml Balance 2420 ml Intake Oral 2420 ml # Voids 10 # Bowel Movements 2 General: Alert, Oriented X3, Cooperative, No Acute Distress HEENT: Atraumatic, EOMI, Mucous Memb Moist/[place] Neck: Supple, No JVD Lungs: Clear to Auscultation Heart: Regular Rate, Normal S1, Normal S2 Abdomen: Soft, No Tenderness Extremities: No Clubbing, No Cyanosis, No Edema, Normal Pulses Skin: No Rashes, No Breakdown Results Lab Laboratory Tests 05/15/22 05:27: White Blood Count 8.0, Red Blood Count 5.45, Hemoglobin 14.8, Hematocrit 44, Mean Corpuscular Volume 81, Mean Corpuscular Hemoglobin 27, Mean Corpuscular Hemoglobin Concent 34, Red Cell Distribution Width 14.6H, Platelet Count 263, Mean Platelet Volume 8.3L, Immature Granulocyte % (Auto) 1, Neutrophils (%) (Auto) 49, Lymphocytes (%) (Auto) 40, Monocytes (%) (Auto) 8, Eosinophils (%) (Auto) 1, Basophils (%) (Auto) 1, Neutrophils # (Auto) 4.0, Lymphocytes # (Auto) 3.2, Monocytes # (Auto) 0.6, Eosinophils # (Auto) 0.1, Basophils # (Auto) 0.1, Immature Granulocyte # (Auto) 0.1, Sodium Level 137, Potassium Level 4.5, Chloride Level 101, Carbon Dioxide Level 23, Anion Gap 13, Blood Urea Nitrogen 9, Creatinine 0.76, Estimat Glomerular Filtration Rate 107, BUN/Creatinine Ratio 12, Glucose Level 122H, Calcium Level 9.3, Corrected Calcium 9.2, Total Bilirubin 0.4, Aspartate Amino Transf (AST/SGOT) 35H, Alanine Aminotransferase (ALT/SGPT) 38, Alkaline Phosphatase 64, Total Protein 7.6, Albumin 4.1 Assessment/Plan Assessment/Plan Assess & Plan/Chief Complaint Agitation Aggressive behavior hx of schizoaffective d/o Intellectual disability hx of Developmental Delay -on clozapine now, WBC count wnl -haldol IM for agitation/aggression, last dose 05/13 -social work facilitating return to [facility] home -CTH negative for Acute processes Epigastric pain -w/o acute signs, rebound tenderness -w/o hematemesis, debilitating pain -tolerating food/drink -denies continued pain, resolved -monitoring Diet: full dvt ppx: NI, ambulate GI ppx: pepcid Dispo: Dc today to [facility]. Clinical Quality Measures Admission Status Admission Dx Agitation Aggressive behavior hx of schizophrenia Intellectual disability hx of Developmental Delay -Will need eval by psych -increase antipsychotics, benzos for aggressive behavior -plan for [facility] tomorrow. Epigastric pain -w/o acute signs, rebound tenderness -w/o hematemesis, debilitating pain -tolerating food/drink -BM this AM -monitoring for now Diet: full dvt ppx: NI GI ppx: protonix Dispo: Will need psych evaluation, med adjustments. Hold for now, plan for CT tomorrow. SIMONA STAPLETON May 15, 2022 10:38
--- NOTE | 2022-05-15 12:14 | Discharge Summary ---
Diagnosis/Chief Complaint Date of Admission May 13, 2022 at 14:40 Date of Discharge Discharge Date: May 15, 2022 Discharge Diagnosis Agitation Aggressive behavior hx of schizophrenia Intellectual disability hx of Developmental Delay -Will need eval by psych -increase antipsychotics, benzos for aggressive behavior -plan for CTH tomorrow. Epigastric pain -w/o acute signs, rebound tenderness -w/o hematemesis, debilitating pain -tolerating food/drink -BM this AM -monitoring for now Diet: full dvt ppx: NI GI ppx: protonix Dispo: Will need psych evaluation, med adjustments. Hold for now, plan for CT tomorrow. Discharge Summary Discharge Physical Examination Allergies: Coded Allergies: fluoxetine (Verified Allergy, Unknown, 03/05/17) Vitals & I&Os Vital Signs Date Time Temp Pulse Resp B/P (MAP) Pulse Ox O2 Delivery O2 Flow Rate FiO2 05/15/22 14:00 05/15/22 07:32 95 Room Air 0.00 05/15/22 07:24 37.0 118 18 05/13/22 19:53 21 General Appearance: Alert, Oriented X3, Cooperative Respiratory: Clear to Auscultation Cardiovascular: Normal S1 Hospital Course Was the Problem List Reviewed?: Yes Agitation Aggressive behavior hx of schizophrenia Intellectual disability hx of Developmental Delay -Will need eval by psych -increase antipsychotics, benzos for aggressive behavior -plan for CTH tomorrow. Epigastric pain -w/o acute signs, rebound tenderness -w/o hematemesis, debilitating pain -tolerating food/drink -BM this AM -monitoring for now Diet: full dvt ppx: NI GI ppx: protonix Dispo: Will need psych evaluation, med adjustments. Hold for now, plan for CT tomorrow. Labs (last 24 hrs) Laboratory Tests 05/13/22 08:24: Influenza Type A (RT-PCR) Not Detected, Influenza Type B (RT-PCR) Not Detected, SARS-CoV-2 RNA (RT-PCR) Not Detected 05/13/22 08:45: White Blood Count 6.6, Red Blood Count 5.18, Hemoglobin 14.2, Hematocrit 43, Mean Corpuscular Volume 83, Mean Corpuscular Hemoglobin 27, Mean Corpuscular Hemoglobin Concent 33, Red Cell Distribution Width 15.0H, Platelet Count 247, Mean Platelet Volume 8.4L, Immature Granulocyte % (Auto) 2, Neutrophils (%) (Auto) 55, Lymphocytes (%) (Auto) 33, Monocytes (%) (Auto) 7, Eosinophils (%) (Auto) 1, Basophils (%) (Auto) 1, Neutrophils # (Auto) 3.6, Lymphocytes # (Auto) 2.2, Monocytes # (Auto) 0.5, Eosinophils # (Auto) 0.1, Basophils # (Auto) 0.1, Immature Granulocyte # (Auto) 0.1, Erythrocyte Sedimentation Rate 12, Sodium Level 137, Potassium Level 4.2, Chloride Level 101, Carbon Dioxide Level 25, Anion Gap 11, Blood Urea Nitrogen 7, Creatinine 0.71, Estimat Glomerular Filtration Rate 110, BUN/Creatinine Ratio 10, Glucose Level 174H, Calcium Level 9.1, Corrected Calcium 9.1, Total Bilirubin 0.3, Aspartate Amino Transf (AST/SGOT) 26, Alanine Aminotransferase (ALT/SGPT) 37, Alkaline Phosphatase 66, C-Reactive Protein High Sensitivity 2.48H, Total Protein 7.4, Albumin 4.0, TSH [place] Testing 0.67, Salicylates Level < 5.0L, Acetaminophen Level < 10L, Valproic Acid (Depakene) Level 85.8, Serum Alcohol < 10 05/13/22 09:57: Urine Color YELLOW, Urine Clarity CLEAR, Urine pH 7.5, Urine Specific [place] 1.010L, Urine Protein NEGATIVE, Urine Glucose (UA) NEGATIVE, Urine Ketones NEGATIVE, Urine Nitrite NEGATIVE, Urine Bilirubin NEGATIVE, Urine Urobilinogen 0.2, Urine Leukocyte Esterase NEGATIVE, Urine RBC (Auto) NEGATIVE, Urine RBC NONE, Urine WBC NONE, Urine Squamous Epithelial Cells RARE, Urine Crystals NONE, Urine Bacteria NEGATIVE, Urine Casts NONE, Urine Mucus NEGATIVE, Urine Culture Indicated NO, Urine Opiates Screen NEGATIVE, Urine Oxycodone Screen NEGATIVE, Urine Methadone Screen NEGATIVE, Urine Propoxyphene Screen NEGATIVE, Urine Barbiturates Screen NEGATIVE, Ur Tricyclic Antidepressants Screen NEGATIVE, Urine Phencyclidine Screen NEGATIVE, Urine Amphetamines Screen NEGATIVE, Urine Methamphetamines Screen NEGATIVE, Urine Benzodiazepines Screen NEGATIVE, Urine Cocaine Screen NEGATIVE, Urine Cannabinoids Screen NEGATIVE 05/14/22 10:00: White Blood Count 8.3, Red Blood Count 5.50, Hemoglobin 14.6, Hematocrit 44, Mean Corpuscular Volume 81, Mean Corpuscular Hemoglobin 27, Mean Corpuscular Hemoglobin Concent 33, Red Cell Distribution Width 14.6H, Platelet Count 257, Mean Platelet Volume 8.2L, Immature Granulocyte % (Auto) 1, Neutrophils (%) (Auto) 62, Lymphocytes (%) (Auto) 29, Monocytes (%) (Auto) 8, Eosinophils (%) (Auto) 1, Basophils (%) (Auto) 1, Neutrophils # (Auto) 5.2, Lymphocytes # (Auto) 2.4, Monocytes # (Auto) 0.6, Eosinophils # (Auto) 0.0, Basophils # (Auto) 0.0, Immature Granulocyte # (Auto) 0.1, Sodium Level 138, Potassium Level 3.8, Chloride Level 100, Carbon Dioxide Level 24, Anion Gap 14, Blood Urea Nitrogen 8, Creatinine 0.75, Estimat Glomerular Filtration Rate 108, BUN/Creatinine Ratio 11, Glucose Level 195H, Calcium Level 9.5, Corrected Calcium 9.3, Total Bilirubin 0.4, Aspartate Amino Transf (AST/SGOT) 38H, Alanine Aminotransferase (ALT/SGPT) 38, Alkaline Phosphatase 74, Total Protein 7.9, Albumin 4.3, Vitamin B12 Level 792, Folate 19.0 05/15/22 05:27: White Blood Count 8.0, Red Blood Count 5.45, Hemoglobin 14.8, Hematocrit 44, Mean Corpuscular Volume 81, Mean Corpuscular Hemoglobin 27, Mean Corpuscular Hemoglobin Concent 34, Red Cell Distribution Width 14.6H, Platelet Count 263, Mean Platelet Volume 8.3L, Immature Granulocyte % (Auto) 1, Neutrophils (%) (Auto) 49, Lymphocytes (%) (Auto) 40, Monocytes (%) (Auto) 8, Eosinophils (%) (Auto) 1, Basophils (%) (Auto) 1, Neutrophils # (Auto) 4.0, Lymphocytes # (Auto) 3.2, Monocytes # (Auto) 0.6, Eosinophils # (Auto) 0.1, Basophils # (Auto) 0.1, Immature Granulocyte # (Auto) 0.1, Sodium Level 137, Potassium Level 4.5, Chloride Level 101, Carbon Dioxide Level 23, Anion Gap 13, Blood Urea Nitrogen 9, Creatinine 0.76, Estimat Glomerular Filtration Rate 107, BUN/Creatinine Ratio 12, Glucose Level 122H, Calcium Level 9.3, Corrected Calcium 9.2, Total Bilirubin 0.4, Aspartate Amino Transf (AST/SGOT) 35H, Alanine Aminotransferase (ALT/SGPT) 38, Alkaline Phosphatase 64, Total Protein 7.6, Albumin 4.1 Pending Labs Laboratory Tests 05/13/22 08:24: Influenza Type A (RT-PCR) Not Detected, Influenza Type B (RT-PCR) Not Detected, SARS-CoV-2 RNA (RT-PCR) Not Detected 05/13/22 08:45: White Blood Count 6.6, Red Blood Count 5.18, Hemoglobin 14.2, Hematocrit 43, Mean Corpuscular Volume 83, Mean Corpuscular Hemoglobin 27, Mean Corpuscular Hemoglobin Concent 33, Red Cell Distribution Width 15.0, Platelet Count 247, Mean Platelet Volume 8.4, Immature Granulocyte % (Auto) 2, Neutrophils (%) (Auto) 55, Lymphocytes (%) (Auto) 33, Monocytes (%) (Auto) 7, Eosinophils (%) (Auto) 1, Basophils (%) (Auto) 1, Neutrophils # (Auto) 3.6, Lymphocytes # (Auto) 2.2, Monocytes # (Auto) 0.5, Eosinophils # (Auto) 0.1, Basophils # (Auto) 0.1, Immature Granulocyte # (Auto) 0.1, Erythrocyte Sedimentation Rate 12, Sodium Level 137, Potassium Level 4.2, Chloride Level 101, Carbon Dioxide Level 25, Anion Gap 11, Blood Urea Nitrogen 7, Creatinine 0.71, Estimat Glomerular Filtration Rate 110, BUN/Creatinine Ratio 10, Glucose Level 174, Calcium Level 9.1, Corrected Calcium 9.1, Total Bilirubin 0.3, Aspartate Amino Transf (AST/SGOT) 26, Alanine Aminotransferase (ALT/SGPT) 37, Alkaline Phosphatase 66, C-Reactive Protein High Sensitivity 2.48, Total Protein 7.4, Albumin 4.0, TSH [place] Testing 0.67, Salicylates Level < 5.0, Acetaminophen Level < 10, Valproic Acid (Depakene) Level 85.8, Serum Alcohol < 10 05/13/22 09:57: Urine Color YELLOW, Urine Clarity CLEAR, Urine pH 7.5, Urine Specific [place] 1.010, Urine Protein NEGATIVE, Urine Glucose (UA) NEGATIVE, Urine Ketones NEGATIVE, Urine Nitrite NEGATIVE, Urine Bilirubin NEGATIVE, Urine Urobilinogen 0.2, Urine Leukocyte Esterase NEGATIVE, Urine RBC (Auto) NEGATIVE, Urine RBC NONE, Urine WBC NONE, Urine Squamous Epithelial Cells RARE, Urine Crystals NONE, Urine Bacteria NEGATIVE, Urine Casts NONE, Urine Mucus NEGATIVE, Urine Culture Indicated NO, Urine Opiates Screen NEGATIVE, Urine Oxycodone Screen NEGATIVE, Urine Methadone Screen NEGATIVE, Urine Propoxyphene Screen NEGATIVE, Urine Barbiturates Screen NEGATIVE, Ur Tricyclic Antidepressants Screen NEGATIVE, Urine Phencyclidine Screen NEGATIVE, Urine Amphetamines Screen NEGATIVE, Urine Methamphetamines Screen NEGATIVE, Urine Benzodiazepines Screen NEGATIVE, Urine Cocaine Screen NEGATIVE, Urine Cannabinoids Screen NEGATIVE 05/14/22 10:00: White Blood Count 8.3, Red Blood Count 5.50, Hemoglobin 14.6, Hematocrit 44, Mean Corpuscular Volume 81, Mean Corpuscular Hemoglobin 27, Mean Corpuscular Hemoglobin Concent 33, Red Cell Distribution Width 14.6, Platelet Count 257, Mean Platelet Volume 8.2, Immature Granulocyte % (Auto) 1, Neutrophils (%) (Auto) 62, Lymphocytes (%) (Auto) 29, Monocytes (%) (Auto) 8, Eosinophils (%) (Auto) 1, Basophils (%) (Auto) 1, Neutrophils # (Auto) 5.2, Lymphocytes # (Auto) 2.4, Monocytes # (Auto) 0.6, Eosinophils # (Auto) 0.0, Basophils # (Auto) 0.0, Immature Granulocyte # (Auto) 0.1, Sodium Level 138, Potassium Level 3.8, Chloride Level 100, Carbon Dioxide Level 24, Anion Gap 14, Blood Urea Nitrogen 8, Creatinine 0.75, Estimat Glomerular Filtration Rate 108, BUN/Creatinine Ratio 11, Glucose Level 195, Calcium Level 9.5, Corrected Calcium 9.3, Total Bilirubin 0.4, Aspartate Amino Transf (AST/SGOT) 38, Alanine Aminotransferase (ALT/SGPT) 38, Alkaline Phosphatase 74, Total Protein 7.9, Albumin 4.3, Vitamin B12 Level 792, Folate 19.0 05/15/22 05:27: White Blood Count 8.0, Red Blood Count 5.45, Hemoglobin 14.8, Hematocrit 44, Mean Corpuscular Volume 81, Mean Corpuscular Hemoglobin 27, Mean Corpuscular Hemoglobin Concent 34, Red Cell Distribution Width 14.6, Platelet Count 263, Mean Platelet Volume 8.3, Immature Granulocyte % (Auto) 1, Neutrophils (%) (Auto) 49, Lymphocytes (%) (Auto) 40, Monocytes (%) (Auto) 8, Eosinophils (%) (Auto) 1, Basophils (%) (Auto) 1, Neutrophils # (Auto) 4.0, Lymphocytes # (Auto) 3.2, Monocytes # (Auto) 0.6, Eosinophils # (Auto) 0.1, Basophils # (Auto) 0.1, Immature Granulocyte # (Auto) 0.1, Sodium Level 137, Potassium Level 4.5, Chloride Level 101, Carbon Dioxide Level 23, Anion Gap 13, Blood Urea Nitrogen 9, Creatinine 0.76, Estimat Glomerular Filtration Rate 107, BUN/Creatinine Ratio 12, Glucose Level 122, Calcium Level 9.3, Corrected Calcium 9.2, Total Bilirubin 0.4, Aspartate Amino Transf (AST/SGOT) 35, Alanine Aminotransferase (ALT/SGPT) 38, Alkaline Phosphatase 64, Total Protein 7.6, Albumin 4.1 Discharge Home Medications: Active Scripts Active Clozapine 100 Mg Tablet 100 Mg PO BID Reported Olanzapine 15 Mg Tablet 15 Mg PO BID Haloperidol 5 Mg Tablet 5 Mg PO DAILY PRN Hydroxyzine Pamoate 50 Mg Capsule 50 Mg PO Q8H PRN Mirtazapine 15 Mg Tablet 15 Mg PO HS Ketoconazole 2 % Shampoo 5-10 Ml TP TID PRN Haloperidol 10 Mg Tablet 5 Mg PO Q8H PRN GIVE FOR AGITATION SHOWN BY AGGRESSIVE BEHAVIORS LIKE THREATENING GESTURES OR AGGRESSION TO PROPERTY TAKES OF A 10MG TAB Throat [place] (Phenol) 1.4 % [place] 1 Sprays MM EVERY 2 HOURS PRN Benadryl Allergy (Diphenhydramine HCl) 25 Mg Tablet 25 Mg PO Q4H PRN Advil (Ibuprofen) 200 Mg Capsule 200-400 Mg PO Q4 -6H PRN Vitamin E-Oil (Vitamin E (Dl,Tocopheryl Acet)) 45 Mg/0.25 Ml (100 Unit/0.25 Ml) Drops 10 Drops PO DAILY Multivitamins with Iron 1 Each Tablet 1 Each PO DAILY Mirtazapine 30 Mg Tablet 30 Mg PO HS Oxybutynin Chloride 5 Mg Tablet 5 Mg PO 0800,2000 Keppra (Levetiracetam) 100 Mg/Ml Solution 10 Ml PO 0900,2100 Hydroxyzine Pamoate 50 Mg Capsule 50 Mg PO 0800,1400,1999 Haloperidol 2 Mg Tablet 2 Mg PO 0800,1400,1999 Haloperidol Decanoate 100 Mg/Ml Ampul 100 Mg IM MONTHLY Sudafed PE (Phenylephrine HCl) 10 Mg Tablet 10 Mg PO Q4H PRN MDD 60MG Icy Hot Stick (Methyl Salicylate/Menthol) 30 %-10 % Stick...g. 1 Applic TP QID PRN ALLOW A MINIMUM OF 2-3 HOURS BETWEEN APPLICATIONS Albuterol Sulfate 2.5 Mg/0.5 Ml Vial.neb 2.5 Mg INH Q4H Anti-Diarrheal (Loperamide HCl) 2 Mg Capsule 2-4 Mg PO UD PRN MDD 16MG FOLLOW PACKAGE DIRECTIONS Triple Antibiotic Plus Oint (Neomycn/Baci Zn/Pmyx Bs/Pramox) 28.4 Gm Oint...g. 1 Applic TP TID PRN Famotidine 40 Mg/5 Ml (8 Mg/Ml) Oral.susp 2.5 Ml PO 0800,1999 Ezetimibe 10 Mg Tablet 10 Mg PO 1999 Clonazepam 1 Mg Tablet 1 Mg PO 0800,1999 Tylenol Extra Strength (Acetaminophen) 500 Mg Tablet 1,000 Mg PO Q6H PRN MDD 3000MG Tinactin (Tolnaftate) 1 % Aero.powd 1 Applic TP BID PRN Robitussin Cough-Chest Dm Liq (Guaifenesin/Dextromethorphan) 100 Mg-5 Mg/5 Ml Liquid 20 Ml PO Q4H PRN MDD 120ML Refresh Optive Advanced Drops (Carboxymethyl/Glycerin/Poly80) 0.5 %-1 %-0.5 % Drops 1-2 Drop OU UD PRN Milk of Magnesia (Magnesium Hydroxide) 400 Mg/5 Ml Oral.susp 30 Ml PO DAILY PRN Maalox Advanced Suspension (Mag Hydrox/Aluminum Hyd/Simeth) 200 Mg-200 Mg-20 Mg/5 Ml Oral.susp 10-20 Ml PO QID PRN Debrox (Carbamide Peroxide) 6.5 % Drops 5-10 Drops EACH EAR BID PRN PER PACKAGE DIRECTIONS Cough Drops (Eucalyptus/Menthol) 1 Each Lozenge 1 [place] MM 5XD PRN Cortaid (Hydrocortisone) 1 % Cream..g. 1 Applic TP QID PRN Trintellix (Vortioxetine Hydrobromide) 20 Mg Tablet 20 Mg PO DAILY Divalproex Sodium 125 Mg Cap.sprink 1,875 Mg PO 1999 TAKES 15 (125MG) CAPSULES Folic Acid 1 Mg Tablet 0.5 Mg PO DAILY TAKES OF A 1MG TAB Metoprolol Succinate 25 Mg Tab.er.24h 25 Mg PO DAILY Instructions to patient/family Please see electronic discharge instructions given to patient. Diagnosis/Problems Diagnosis/Problems (1) Psychosis (2) Aggressive behavior Status: Acute (3) Intellectual developmental disorder, severe ELIZA HER DO May 15, 2022 12:14
[2022-06-08] MEDS ORDERED: HALOPERIDOL DECANOATE 100 MG IM SCH (09:00)
== END 2022-05-15 12:13 | disposition home or self-care (01) ==
LOC: EDUNIT# 07:37 → ER 07:38 → 4TH 14:40 → UNDOADMOB 14:40 → 4TH 15:45 → UNDODISOB 05-15 12:13
PROVIDERS: ADMIT Internal Medicine; ATTEND Internal Medicine
DX: F29 Unspecified psychosis not due to a substance or known physiological condition (principal); R10.13 Epigastric pain; F20.9 Schizophrenia, unspecified; F72 Severe intellectual disabilities
CPT/HCPCS: 70450; 80053 ×3; 80164; 80306; 81000; 82607; 82746; 84443; 85025 ×3; 85652; 86141; 87636; 93005; 94640 ×2; 94760 ×2; 96372 ×2; 99283; G0378; G0480 ×3; 36415; 80320; 80329